=== PATIENT | female | born 1995 | race African-American/Black ===

== ENCOUNTER 2017-07-27 14:26 | Emergency (ER) | payer OTHER, SELFPAY ==
[2017-07-27 14:26] VITALS: BP 142/73; PULSE 77; RESP 16; TEMP 36.7; O2SAT 100; BMI 33.5
--- NOTE | 2017-07-27 14:42 | EKG12_ITS ---
Test Reason : CP Blood Pressure : / mmHG Vent. Rate : 069 BPM Atrial Rate : 069 BPM P-R Int : 154 ms QRS Dur : 072 ms QT Int : 386 ms P-R-T Axes : 039 020 010 degrees QTc Int : 413 ms Normal sinus rhythm with sinus arrhythmia Normal ECG Confirmed by PRISCILLA BIGGS ([id number]), acquisition editor JEFF PATRICK ([id number]) on 07/31/2017 1:46:21 PM Referred By: Confirmed By:PRISCILLA BIGGS
--- NOTE | 2017-07-27 14:42 | RAD_ITS ---
STUDY: X-RAY CHEST REASON FOR EXAM: Female, 22 years old. Left-sided chest pain. TECHNIQUE: Single AP portable view of the chest. COMPARISON: Comparison is made with prior study dated December 26, 2015. FINDINGS: EKG electrodes are seen. The lungs are clear and expanded. There is no demonstrated pleural abnormality. Normal size heart. Normal mediastinum and suzy. Normal visualized pulmonary arteries. Normal visualized aortic arch and descending thoracic aorta. Normal visualized thoracic spine. Normal visualized ribs, clavicles, and shoulders. There is no demonstrated abnormality of the visualized soft tissue structures of the upper abdomen. RAD/Chest 1 View (Portable) IMPRESSION: Normal x-ray examination of the chest. Electronically Signed: Michel Mujica MD at 15:09 EST Tel [phone], Service support ,
[2017-07-27 14:58] VITALS: O2SAT 100
[2017-07-27] MEDS: Aspirin 81 MG TAB.CHEW 324 MG PO (15:05)
[2017-07-27 15:13] LABS: Absolute Lymphocyte Count 2.23 X10^3/ul (0.83-4.51); Absolute Neutrophil Count 4.5 X10^3/uL (2.0-7.7); Basophil# 0.02 X10^3/uL; Basophil% 0.3 % (0-1); Eosinophil# 0.22 X10^3/uL; Eosinophils% 2.9 % (0-5); Hematocrit 38.3 % (37-47); Lymphocyte # 2.23 X10^3/ul (4.0); Lymphocyte % 29.3 % (19-41); Mean Corp Hgb Conc 31.3 g/gl (32-36); Mean Corpuscular Hgb 26.5 pg (27.0-32.0); Mean Corpuscular Volume 84.7 fL (81-99); Mean Platelet Vol. 10.4 fl (6.2-12.0); Monocyte# 0.59 X10^3/uL; Monocyte% 7.8 % (0-10); Neutrophil # 4.53 X10^3/uL (2.7-7.7); Neutrophil % 59.6 % (47-70); Platelet Count 249 K/mm3 (150-450); RBC Distribution Width CV 14.6 % (11.6-14.6); RBC Distribution Width SD 45.5 fl (35.1-43.9); Red Blood Count 4.52 M/mm3 (4.2-5.4); White Blood Count 7.6 K/mm3 (4.4-11.0)
[2017-07-27 15:14] LABS: POSITIVE COUNT NO; POSITIVE DIFFERENTIAL NO; POSITIVE MORPHOLOGY NO
--- NOTE | 2017-07-27 15:19 | ED.DCSUM_ITS ---
- ER Visit Summary Date of Service: 07/27/17 Chief Complaint: [] Left sided chest pain since about 8:00 this morning History of Present Illness: The patient is a 22 F [] chronic chest pain,, chronic syncope, falling spells, anemia, she reports that basically this morning she got up quickly which she has not supposed to do when she fell to the ground she had no LOC she believes she struck her head lightly she had no planes of headache change in vision or paresthesias she also complains of pain to her left chest but she does not believe she injured her chest. She has no history of [place] PE DVT she had a prior evaluation for the chest pain including cardiac echo and other tests that were unremarkable, she is not sure why she is anemic she takes iron, she was seeing physicians in the [facility] she lost contact with them when she moved to the [facility] a few months ago and does not reestablish with a physician He denies history of [place] PE DVT her review of systems are completely negative except as above Physical Examination: [] No distress her vital signs are normal head neck chest unremarkable the lungs sound clear the heart tones are normal the chest wall is nontender the head is nontender her neck is nontender her back upper lower extremities unremarkable abdomen completely soft nontender neurologically awake moving all 4 no distress lower extremities with no sinus clubbing or edema or signs of DVT clinically she sitting in the bed resting comfortably looks well Test Results: [] Emergency Department Course and Treatment: [] ekg is unremarkable sinus rhythm screening labs chest x-ray, are all generally unremarkable see those reports hemoglobin is 12 on reevaluation she is resting comfortable in the bed she is playing with her phone she is in no distress Long conversation with her regarding etiology for chest pain she has had this for at least 2 years this pain is identical to what she has had in the past there is nothing to suggest [place] PE DVT she has no history of the above risk factors, I could not access the prior cardiac echo and other tests that she had as apparently were done somewhere in [place] she is really not sure where but she assures me they were normal. At this time we will discharge her on Naprosyn she is referred to [place] on-call primary care and she will return for change in symptoms as she understands she will require more definitive outpatient management and she will agrees to return for change in symptoms Treatment Plan: [] Disposition: [] Home stable Impression: [] Intermittent chest pain for years etiology unclear This note was generated with [employer] dictation software. It may contain incorrect words, spelling, and punctuation that were not noted in review of the chart prior to signing ED Disposition - Plan for ED Patient: Chief Complaint: Chest Pain Referrals: Care Physician,No Primary [Primary Care Provider] -
[2017-07-27 15:30] LABS: Anion Gap 6 (5-15); BUN 13 mg/dL (7-18); BUN/Creat Ratio 14.7 RATIO (10-20); Calcium,Total 8.4 mg/dL (8.5-10.1); Chloride 110 mmol/L (98-107); Creatinine, Serum 0.88 mg/dL (0.55-1.02); EST Glomerular Filtration Rate 84 mL/min (>60); Est Glom Filt Rate - Afr Amer 102 mL/min (>60); Estimated Creatinine Clearance 111.13 ml/min; Glucose 91 mg/dL (74-106); Potassium 3.8 mmol/L (3.5-5.1); Sodium Level 142 mmol/L (136-145)
--- NOTE | 2017-07-27 15:37 | ED.DEP ---
ED Disposition - Plan for ED Patient: Chief Complaint: Chest Pain Instructions: ED Chest Pain Atypical Unkn Cause Prescriptions: Naproxen [Naprosyn] 500 mg PO BID PRN #20 tab Referrals: Care Physician,No Primary [Primary Care Provider] - Trino Edmonds MD [STAFF PHYSICIAN] -
[2017-07-27 15:45] VITALS: BP 124/85; PULSE 74; RESP 14; O2SAT 100
--- NOTE | 2017-07-27 15:45 | ED.RN ---
PT GIVEN AND WRITTEN AND VERBAL DISCHARGE INSTRUCTIONS AND HOME GOING PRESCRIPTIONS. PT VERBALIZES UNDERSTANDING. PT DENIES ANY FURTHER QUESTIONS. IV D/C AND COVERED WITH 2X2 GAUZE DRESSING. MINIMAL BLEEDING NOTED. PT DRESSES SELF AND AMBULATES HOME WITH FRIEND.
== END 2017-07-27 15:49 | disposition home or self-care (01) ==
PROVIDERS: Emergency Provider Emergency Medicine
DX: R07.9 Chest pain, unspecified (principal)
CPT/HCPCS: 71045; 80048; 84484; 85025; 93005; 99285; A4216

== ENCOUNTER 2017-07-30 20:10 | Emergency (ER) | payer OTHER, SELFPAY ==
[2017-07-30 20:11] VITALS: BP 147/87; PULSE 86; RESP 14; TEMP 37.1; O2SAT 97; BMI 34.1
--- NOTE | 2017-07-30 20:30 | RAD_ITS ---
STUDY: X-RAY - RIGHT KNEE REASON FOR EXAM: Female, 22 years old. Pain TECHNIQUE: Four view(s) of the knee were obtained. COMPARISON: May 04, 2015 FINDINGS: The distal femur is unremarkable. The proximal tibia is unremarkable. Normal medial femorotibial compartment. Normal lateral femorotibial compartment. Normal patellofemoral articulation. There is no fullness above the patella. The soft tissue structures are unremarkable. RAD/Knee 4 or More Views IMPRESSION: No significant abnormalities are seen radiographically in the right knee. Electronically Signed: Tayla Hughes MD at 21:02 EDT Tel Direct: [phone], Service support ,
--- NOTE | 2017-07-30 21:17 | ED.VISSUMM ---
- ER Visit Summary Date of Service: 07/30/17 Chief Complaint: Sore throat and right knee pain History of Present Illness: The patient is a 22 F who because of right knee pain. She states her knee locks up and gives way. There is no history of trauma. She has never injured the knee in the past. She denies paresthesia, anesthesia moderates. She denies swelling. She does report nasal congestion sore throat and cough. She is a smoker. She denies earache, headache, photophobia sips of her neck. She denies rash. She denies any GI or symptoms. Physical Examination: Signs are marked for an elevated blood pressure 147/87. She is obese with a BMI of 34.1. HEENT exam is remarkable for rhinorrhea. Neck is supple. Heart is regular without murmur, gallop or rub. S1 and S2 are normal. Lungs are clear to auscultation with good movement of air bilaterally. There is no swelling of the right knee. The right knee is not discolored, warm or any different appearance compared to left. The patella is not ballotable. There is no effusion. She is able to extend 180? and flex to 90?. There is no laxity with varus valgus stress testing. Nicholas's test was negative. Modified Jacqueline's test is negative. DP and PT pulses are palpable. Test Results: 4 view x-ray of the knee was obtained and is negative per my interpretation. Emergency Department Course and Treatment: The knee was obtained to see if there is any evidence of prior injury. Since patient's Centor score is 0 rapid strep was not obtained Treatment Plan: NSAID, symptomatic treatment for sore throat. She was informed she has a viral infection. Disposition: Discharged home with appropriate home-going instructions and symptomatic treatment Impression: 1. Right knee pain of unknown etiology 2. Viral pharyngitis This note was generated with [employer] dictation software. It may contain incorrect words, spelling, and punctuation that were not noted in review of the chart prior to signing ED Disposition - Plan for ED Patient: Disposition: Home or Assisted Living Chief Complaint: Lower Extremity Injury Instructions: ED Knee Pain UKO, ED Pharyngitis Viral Referrals: Care Physician,No Primary [Primary Care Provider] - Additional Instructions: If there is no improvement in 1-2 weeks follow-up with the primary care physician you were assigned to by your insurance carrier, [facility]
[2017-07-30 21:28] VITALS: RESP 16
== END 2017-07-30 21:28 | disposition home or self-care (01) ==
PROVIDERS: Emergency Provider Emergency Medicine
DX: M25.561 Pain in right knee (principal); J02.9 Acute pharyngitis, unspecified; R05 Cough; F17.200 Nicotine dependence, unspecified, uncomplicated
CPT/HCPCS: 73564; 99282

== ENCOUNTER 2017-08-04 19:23 | Emergency (ER) | payer OTHER, MEDICAID, SELFPAY ==
[2017-08-04 19:24] VITALS: BP 162/96; PULSE 85; RESP 16; TEMP 36.8; O2SAT 100; BMI 33.4
--- NOTE | 2017-08-04 19:51 | EKG12_ITS ---
Test Reason : CP Blood Pressure : / mmHG Vent. Rate : 077 BPM Atrial Rate : 077 BPM P-R Int : 150 ms QRS Dur : 086 ms QT Int : 388 ms P-R-T Axes : 044 042 032 degrees QTc Int : 439 ms Normal sinus rhythm Normal ECG Confirmed by PRISCILLA BIGGS ([id number]), television news video editor JEFF PATRICK ([id number]) on 08/07/2017 1:17:36 PM Referred By: SHANTANU Confirmed By:PRISCILLA BIGGS
[2017-08-04 20:27] VITALS: BP 137/87; PULSE 64; RESP 16; O2SAT 100
[2017-08-04 20:45] LABS: Absolute Neutrophil Count 5.5 X10^3/uL (2.0-7.7); Basophil# 0.04 X10^3/uL; Basophil% 0.4 % (0-1); Eosinophil# 0.24 X10^3/uL; Eosinophils% 2.6 % (0-5); Hematocrit 38.3 % (37-47); Hemoglobin 12.3 g/dl (12.0-15.0); Mean Corp Hgb Conc 32.1 g/gl (32-36); Mean Corpuscular Hgb 26.9 pg (27.0-32.0); Mean Corpuscular Volume 83.6 fL (81-99); Mean Platelet Vol. 10.6 fl (6.2-12.0); Monocyte# 0.79 X10^3/uL; Monocyte% 8.5 % (0-10); Neutrophil # 5.51 X10^3/uL (2.7-7.7); Neutrophil % 59.3 % (47-70); Platelet Count 326 K/mm3 (150-450); RBC Distribution Width CV 14.7 % (11.6-14.6); RBC Distribution Width SD 44.2 fl (35.1-43.9); Red Blood Count 4.58 M/mm3 (4.2-5.4); White Blood Count 9.3 K/mm3 (4.4-11.0)
--- NOTE | 2017-08-04 20:45 | RAD_ITS ---
STUDY: X-RAY CHEST REASON FOR EXAM: Female, 22 years old. Chest pain TECHNIQUE: Single AP portable view of the chest. COMPARISON: July 27, 2017 chest x-ray FINDINGS: The lungs are clear and expanded. There is no demonstrated pleural abnormality. Normal size heart. Normal mediastinum and suzy. Normal visualized pulmonary arteries. Normal visualized aortic arch and descending thoracic aorta. Normal visualized thoracic spine. Normal visualized ribs, clavicles, and shoulders. There is no demonstrated abnormality of the visualized soft tissue structures of the upper abdomen. RAD/Chest 1 View (Portable) IMPRESSION: Normal x-ray examination of the chest. Electronically Signed: Shyla Medrano MD at 21:34 EDT Tel , Service support ,
[2017-08-04 20:47] LABS: POSITIVE COUNT NO; POSITIVE DIFFERENTIAL NO; POSITIVE MORPHOLOGY NO
[2017-08-04 21:06] LABS: Anion Gap 7 (5-15); BUN 8 mg/dL (7-18); BUN/Creat Ratio 9.1 RATIO (10-20); Calcium,Total 8.5 mg/dL (8.5-10.1); Chloride 106 mmol/L (98-107); Creatinine, Serum 0.88 mg/dL (0.55-1.02); EST Glomerular Filtration Rate 84 mL/min (>60); Est Glom Filt Rate - Afr Amer 102 mL/min (>60); Estimated Creatinine Clearance 111.13 ml/min; Glucose 81 mg/dL (74-106); Potassium 3.6 mmol/L (3.5-5.1); Sodium Level 140 mmol/L (136-145)
--- NOTE | 2017-08-04 21:33 | ED.DCSUM_ITS ---
- ER Visit Summary Date of Service: 08/04/17 Chief Complaint: Chest pain History of Present Illness: The patient is a 22 F presenting with left-sided chest pain. She has a history of anxiety and has been feeling anxious today. She states she has had suicidal thoughts, but is not currently suicidal and has no plan. She also complains of vaginal bleeding since February 2017. She states she does not have normal periods. She has vaginal bleeding on a daily basis. She has an appointment with [facility] on Monday. Physical Examination: Vitals are stable. Patient is afebrile. Alert no acute distress. HEENT exam is unremarkable. Neck is supple. Lungs are clear and equal bilaterally. Left chest wall tenderness to palpation , no crepitus Heart is regular rate and rhythm. Abdomen is soft nontender nondistended. Pelvic: Minimal amount of blood in the vaginal vault. No significant active bleeding. No cervical motion tenderness. Extremities are unremarkable. Skin is warm and dry. No focal neurologic deficit. Anxious Remainder of exam is unremarkable. Emergency Department Course and Treatment: EKG is sinus rhythm rate 77 with no acute ischemic changes. CBC, chemistries are unremarkable. Troponin is negative. Chest x-ray shows no acute process. Patient was given Toradol IM with improvement. She was given Ativan p.o. Discussed again with the patient regarding her depression. She does not feel suicidal. She has children at home and wants to live. She will return to ED if she has any suicidal thoughts or plan. Advised to follow-up with counseling center, [facility], PCP. Disposition: Discharge home Impression: Chest wall pain, vaginal bleeding, anxiety/depression This note was generated with [employer] dictation software. It may contain incorrect words, spelling, and punctuation that were not noted in review of the chart prior to signing ED Disposition - Plan for ED Patient: Chief Complaint: Chest Pain Referrals: Care Physician,No Primary [Primary Care Provider] -
[2017-08-04] MEDS: Ketorolac 60 MG/2 ML Vial IM (22:38)
[2017-08-04] MEDS: LORazepam 1 MG Tablet PO (22:38)
[2017-08-04 23:16] LABS: Pregnancy, Serum, hCG Quali. NEGATIVE Negative (0-9 Nonpreg)
[2017-08-04 23:29] LABS: Amphetamine Urine VISTA NEGATIVE (<1000 ng/mL); Barbiturate Urine VISTA NEGATIVE (< 200 ng/mL); Benzodiazepine Urine VISTA NEGATIVE (< 200 ng/mL); Cocaine Urine VISTA NEGATIVE (< 300 ng/mL); Ecstacy Urine VISTA NEGATIVE (< 500 ng/mL); Methadone Urine VISTA NEGATIVE (< 300 ng/mL); PCP Urine VISTA NEGATIVE (< 25 ng/mL); THC Urine VISTA NEGATIVE (< 50 ng/mL); Vista UDS pH Range 6
--- NOTE | 2017-08-04 23:42 | ED.DEP ---
ED Disposition - Plan for ED Patient: Chief Complaint: Chest Pain Instructions: ED Strain Chest Wall, Depression Affects Your Mind and Body Referrals: Care Physician,No Primary [Primary Care Provider] - Counseling,Center [GROUP OF PHYSICIANS] -
[2017-08-04 23:52] VITALS: BP 128/62; PULSE 72; RESP 16; O2SAT 100
== END 2017-08-04 23:56 | disposition home or self-care (01) ==
PROVIDERS: Emergency Provider Emergency Medicine
DX: R07.89 Other chest pain (principal); N93.9 Abnormal uterine and vaginal bleeding, unspecified; F41.9 Anxiety disorder, unspecified; F32.9 Major depressive disorder, single episode, unspecified
CPT/HCPCS: 71045; 80048; 80307; 80320; 84484; 84703; 85025; 93005; 96372; 99285; A4216; G0480

== ENCOUNTER 2017-08-11 22:10 | Emergency (ER) | payer OTHER, MEDICAID, SELFPAY ==
[2017-08-11 22:11] VITALS: BP 141/75; PULSE 72; RESP 14; TEMP 36.7; O2SAT 98; BMI 31.1
--- NOTE | 2017-08-11 22:58 | ED.VISSUMM ---
- ER Visit Summary Date of Service: 08/11/17 Chief Complaint: Head injury History of Present Illness: The patient is a 22 F presents to the emergency department with head injury. The patient states that she was lying on bed. The bed is on the floor. She rolled over and try to get. She struck her head on the table. She did not lose consciousness. Since then, she has had mild frontal headache and nausea. She takes no anticoagulants. The patient is otherwise healthy. She denies any vomiting. She denies any visual change. Physical Examination: Vital signs reviewed General: Well-nourished, well-developed Head: Normocephalic, atraumatic Eyes: Pupils equal and reactive, extraocular muscles intact Neck, supple, no lymphadenopathy Heart: Regular rate and rhythm Respiratory: No distress, clear bilaterally Abdomen: Soft, nontender, nondistended, no peritoneal signs Back: Nontender Extremities: Nontender, no edema, no cords Skin: Normal color no rash Neuro: Alert and oriented, no focal or lateralizing deficits Test Results: [] Emergency Department Course and Treatment: Patient has no appreciable external trauma. She is a GCS of 15. She has a benign neurologic examination. She does not take anticoagulants. There was no loss of consciousness. At this time, I do not feel head CT is necessary. I do feel she may have a mild concussion. The patient was treated with anti-inflammatories and antiemetics. She was counseled on concerning symptoms and reasons to return. The patient will be discharged home. Treatment Plan: [] Disposition: Discharge Impression: 1. Concussion without loss of consciousness This note was generated with [employer] dictation software. It may contain incorrect words, spelling, and punctuation that were not noted in review of the chart prior to signing ED Disposition - Plan for ED Patient: Chief Complaint: Head Injury Instructions: ED Concussion Prescriptions: Ondansetron [Zofran Odt] 4 mg PO Q8H PRN PRN #10 tab PRN Reason: Nausea Naproxen [Naprosyn] 500 mg PO BID #20 tab Referrals: Care Physician,No Primary [Primary Care Provider] -
--- NOTE | 2017-08-11 23:03 | ED.DCSUM_ITS ---
- ER Visit Summary Date of Service: 08/11/17 Chief Complaint: Head injury History of Present Illness: The patient is a 22 F presents to the emergency department with head injury. The patient states that she was lying on bed. The bed is on the floor. She rolled over and try to get. She struck her head on the table. She did not lose consciousness. Since then, she has had mild frontal headache and nausea. She takes no anticoagulants. The patient is otherwise healthy. She denies any vomiting. She denies any visual change. Physical Examination: Vital signs reviewed General: Well-nourished, well-developed Head: Normocephalic, atraumatic Eyes: Pupils equal and reactive, extraocular muscles intact Neck, supple, no lymphadenopathy Heart: Regular rate and rhythm Respiratory: No distress, clear bilaterally Abdomen: Soft, nontender, nondistended, no peritoneal signs Back: Nontender Extremities: Nontender, no edema, no cords Skin: Normal color no rash Neuro: Alert and oriented, no focal or lateralizing deficits Test Results: [] Emergency Department Course and Treatment: Patient has no appreciable external trauma. She is a GCS of 15. She has a benign neurologic examination. She does not take anticoagulants. There was no loss of consciousness. At this time , I do not feel head CT is necessary. I do feel she may have a mild concussion. The patient was treated with anti-inflammatories and antiemetics. She was counseled on concerning symptoms and reasons to return. The patient will be discharged home. Treatment Plan: [] Disposition: Discharge Impression: 1. Concussion without loss of consciousness This note was generated with [employer] dictation software. It may contain incorrect words, spelling, and punctuation that were not noted in review of the chart prior to signing ED Disposition - Plan for ED Patient: Chief Complaint: Head Injury Instructions: ED Concussion Prescriptions: Ondansetron [Zofran Odt] 4 mg PO Q8H PRN PRN #10 tab PRN Reason: Nausea Naproxen [Naprosyn] 500 mg PO BID #20 tab Referrals: Care Physician,No Primary [Primary Care Provider] -
[2017-08-11 23:11] VITALS: PULSE 53; RESP 16; O2SAT 97
--- NOTE | 2017-08-11 23:13 | NURSING ---
medications not given prior to d/c
== END 2017-08-11 23:13 | disposition home or self-care (01) ==
PROVIDERS: Emergency Provider Emergency Medicine
DX: S06.0X0A Concussion without loss of consciousness, initial encounter (principal); W22.03XA Walked into furniture, initial encounter; Y93.9 Activity, unspecified; Y92.009 Unspecified place in unspecified non-institutional (private) residence as the place of occurrence of the external cause; Y99.9 Unspecified external cause status
CPT/HCPCS: 99282

== ENCOUNTER 2017-08-12 13:58 | Emergency (ER) | payer OTHER, MEDICAID, SELFPAY ==
[2017-08-12 13:59] VITALS: BP 144/80; PULSE 67; RESP 16; TEMP 36.9; O2SAT 98; BMI 32.3
--- NOTE | 2017-08-12 14:17 | CT_ITS ---
STUDY: CT BRAIN WITHOUT CONTRAST REASON FOR EXAM: Female, 22 years old. Fall. RADIATION DOSAGE (If Supplied By Facility): CTDIvol = ( 44.99 ) mGy, DLP = ( 745.49 ) mGycm TECHNIQUE: Transaxial CT imaging of the brain was performed without administration of intravenous contrast material. Individualized dose optimization techniques were used for this CT. COMPARISON: None. FINDINGS: Normal soft tissue structures. Normal calvarium. Normal size ventricles and extra-axial spaces for the patient's age. Normal white matter tracts of the cerebral hemispheres. Normal basal ganglia and thalami. Normal brainstem. Normal cerebellum. There is no intracranial hemorrhage. There are no findings of an acute ischemic infarction. Normal visualized paranasal sinuses. CT/Brain/Head without Contrast IMPRESSION: Normal unenhanced CT scan of the brain. Electronically Signed: Robert Miguel MD at 15:40 EDT , Service support ,
--- NOTE | 2017-08-12 14:18 | ED.VISSUMM ---
- ER Visit Summary Date of Service: 08/12/17 Chief Complaint: Headache and left-sided weakness History of Present Illness: The patient is a 22 F who presents with worsening headache and left-sided weakness today. Patient was seen here yesterday after a fall. Patient was diagnosed with a concussion yesterday. Patient was told that if anything became worse to return to the emergency department. Patient states that today she has some numbness and weakness to her left side. Patient denies any chest pain. Patient does admit to a mild headache. Patient admits to some photophobia. Patient admits to some nausea but denies any vomiting. Patient states he feels lightheaded and felt like she might pass out today. Physical Examination: Vital signs are stable. Patient is afebrile. Patient is in no acute distress. Cranial nerves II through XII are intact. Strength is 4/5 in the left upper and lower extremities. Strength is 5/5 in the right upper and lower extremities. Effort was questionable. There are no sensory deficits noted. Heart was regular rate and rhythm. Lungs are clear and equal bilaterally. There is good respiratory effort noted. Oral mucosa is pink and moist. Neck is supple. There is no lymphadenopathy appreciated. The remaining physical exam is within normal limits. Test Results: CT scan of the brain was obtained did not show any acute intracranial abnormality. CBC and basic metabolic profile were obtained and were within normal limits. Emergency Department Course and Treatment: Patient was given IV fluids, Compazine, and Benadryl here. Patient felt better on reevaluation. Patient's strength improved to 5/5 on the left. Patient was instructed to drink plenty of fluids. Patient was instructed to get plenty of rest. Patient was instructed to follow-up with her primary care physician in 7-10 days. Patient understood and was agreeable with the plan. All questions were answered. Disposition: Discharge home Impression: Concussion This note was generated with [employer] dictation software. It may contain incorrect words, spelling, and punctuation that were not noted in review of the chart prior to signing ED Disposition - Plan for ED Patient: Disposition: Home or Assisted Living Chief Complaint: Dizziness Diagnosis: Concussion Instructions: ED Concussion Referrals: Care Physician,No Primary [Primary Care Provider] -
--- NOTE | 2017-08-12 14:21 | ED.DCSUM_ITS ---
- ER Visit Summary Date of Service: 08/12/17 Chief Complaint: Headache and left-sided weakness History of Present Illness: The patient is a 22 F who presents with worsening headache and left-sided weakness today. Patient was seen here yesterday after a fall. Patient was diagnosed with a concussion yesterday. Patient was told that if anything became worse to return to the emergency department. Patient states that today she has some numbness and weakness to her left side. Patient denies any chest pain. Patient does admit to a mild headache. Patient admits to some photophobia. Patient admits to some nausea but denies any vomiting. Patient states he feels lightheaded and felt like she might pass out today. Physical Examination: Vital signs are stable. Patient is afebrile. Patient is in no acute distress. Cranial nerves II through XII are intact. Strength is 4/ 5 in the left upper and lower extremities. Strength is 5/5 in the right upper and lower extremities. Effort was questionable. There are no sensory deficits noted. Heart was regular rate and rhythm. Lungs are clear and equal bilaterally. There is good respiratory effort noted. Oral mucosa is pink and moist. Neck is supple. There is no lymphadenopathy appreciated. The remaining physical exam is within normal limits. Test Results: CT scan of the brain was obtained did not show any acute intracranial abnormality. CBC and basic metabolic profile were obtained and were within normal limits. Emergency Department Course and Treatment: Patient was given IV fluids, Compazine, and Benadryl here. Patient felt better on reevaluation. Patient's strength improved to 5/5 on the left. Patient was instructed to drink plenty of fluids. Patient was instructed to get plenty of rest. Patient was instructed to follow-up with her primary care physician in 7-10 days. Patient understood and was agreeable with the plan. All questions were answered. Disposition: Discharge home Impression: Concussion This note was generated with [employer] dictation software. It may contain incorrect words, spelling, and punctuation that were not noted in review of the chart prior to signing ED Disposition - Plan for ED Patient: Disposition: Home or Assisted Living Chief Complaint: Dizziness Diagnosis: Concussion Instructions: ED Concussion Referrals: Care Physician,No Primary [Primary Care Provider] -
[2017-08-12] MEDS: DiphenhydrAMINE 50 MG/ML Syringe 25 MG IV (14:39)
[2017-08-12] MEDS: 0.9% Normal Saline 1,000 ML 1000 ML IV (14:40)
[2017-08-12] MEDS: proCHLORPERazine 10 MG/2 ML Vial IV (14:40)
[2017-08-12 14:41] VITALS: BP 118/78; PULSE 87; RESP 20; O2SAT 99
[2017-08-12 15:06] LABS: Absolute Lymphocyte Count 2.19 X10^3/ul (0.83-4.51); Absolute Neutrophil Count 4.5 X10^3/uL (2.0-7.7); Basophil# 0.02 X10^3/uL; Basophil% 0.3 % (0-1); Eosinophil# 0.09 X10^3/uL; Eosinophils% 1.3 % (0-5); Hematocrit 40.6 % (37-47); Hemoglobin 12.7 g/dl (12.0-15.0); Lymphocyte # 2.19 X10^3/ul (4.0); Lymphocyte % 30.7 % (19-41); Mean Corp Hgb Conc 31.3 g/gl (32-36); Mean Corpuscular Hgb 26.3 pg (27.0-32.0); Mean Corpuscular Volume 84.1 fL (81-99); Mean Platelet Vol. 10.5 fl (6.2-12.0); Monocyte# 0.37 X10^3/uL; Monocyte% 5.2 % (0-10); Neutrophil # 4.46 X10^3/uL (2.7-7.7); Neutrophil % 62.5 % (47-70); Platelet Count 344 K/mm3 (150-450); RBC Distribution Width CV 14.4 % (11.6-14.6); RBC Distribution Width SD 44.6 fl (35.1-43.9); Red Blood Count 4.83 M/mm3 (4.2-5.4); White Blood Count 7.1 K/mm3 (4.4-11.0)
[2017-08-12 15:15] LABS: POSITIVE COUNT NO; POSITIVE DIFFERENTIAL NO; POSITIVE MORPHOLOGY NO
[2017-08-12 15:22] LABS: Anion Gap 7 (5-15); BUN 12 mg/dL (7-18); BUN/Creat Ratio 11.4 RATIO (10-20); Calcium,Total 9.2 mg/dL (8.5-10.1); Chloride 106 mmol/L (98-107); Creatinine, Serum 1.05 mg/dL (0.55-1.02); EST Glomerular Filtration Rate 69 mL/min (>60); Est Glom Filt Rate - Afr Amer 83 mL/min (>60); Estimated Creatinine Clearance 99.19 ml/min; Glucose 76 mg/dL (74-106); Potassium 4.2 mmol/L (3.5-5.1); Sodium Level 139 mmol/L (136-145)
[2017-08-12 15:50] VITALS: BP 126/78; PULSE 84; O2SAT 99
== END 2017-08-12 15:52 | disposition home or self-care (01) ==
PROVIDERS: Emergency Provider Emergency Medicine
DX: S06.0X9D Concussion with loss of consciousness of unspecified duration, subsequent encounter (principal); W19.XXXD Unspecified fall, subsequent encounter
CPT/HCPCS: 70450; 80048; 85025; 96361; 96374; 96375; 99285; J7030; A4216

== ENCOUNTER 2019-01-05 17:43 | Emergency (ER) | payer OTHER, MEDICAID, SELFPAY ==
[2019-01-05 17:45] VITALS: BP 123/69; PULSE 101; RESP 17; TEMP 37.1; O2SAT 97; BMI 36.5
[2019-01-05] MEDS: Naproxen 500 MG Tablet PO (18:39)
--- NOTE | 2019-01-05 18:50 | RAD_ITS ---
STUDY: X-RAY - PELVIS AND RIGHT HIP REASON FOR EXAM: Female, 23 years old. Right hip pain TECHNIQUE: 2 views of the pelvis and hip. COMPARISON: None. FINDINGS: There is a non-specific bowel gas pattern. Normal visualized soft tissue structures. Normal bilateral iliac wings, sacroiliac joints and visualized sacrum. Normal bilateral superior and inferior pubic rami. Normal pubic symphysis. Normal bilateral ischial tuberosities. Normal visualized femoral head. Normal acetabulum. Normal hip joint. RAD/Hip Min 2 Views (Portable) IMPRESSION: Normal x-ray examination of the pelvis and hip. Electronically Signed: [place], at 19:14 EDT Tel , Service support ,
--- NOTE | 2019-01-05 19:05 | ED.VISSUMM ---
- ER Visit Summary Date of Service: 01/05/19 Chief Complaint: Right hip pain History of Present Illness: The patient is a 23 F with no primary care physician. She reports she has right hip pain that began 3 days ago. No known trauma. She has not fallen, benign car accident, or had a change in activity. She reports it is a sharp pain is out of 10 at worst at 10 currently. Is worsened by walking. She relieved by leaning to the left. She has not taken anything for pain. She denies any paresthesias distally. No back pain. Physical Examination: Vitals: Stable. Afebrile. General: Well-nourished and well-developed. Head: Normocephalic atraumatic. Neck: Supple, no lymphadenopathy. No JVD. Nontender. Cardiovascular: Regular rate and rhythm. No murmurs. Respiratory: No respiratory distress. Clear to auscultation bilaterally. Abdominal: Soft, nontender, nondistended, normal bowel sounds. No guarding, rebound, or peritoneal signs. Back: Nontender. Extremities: Moderate tenderness palpation over the right greater trochanter. There is no rash or erythema. There is no warmth to suggest a septic joint. She has full range of motion without difficulty. She is neurovascular intact distally. No edema. Skin: Normal color, no rash. Neurologic: Alert and oriented ?3. Cranial nerves II through XII are intact. Normal strength and sensation. Psych: Normal affect. Test Results: Clinical Impression(s) from Imaging Studies Hip X-Ray 01/05/19 18:50 IMPRESSION: Normal x-ray examination of the pelvis and hip. Electronically Signed: Annachris Adilson, at 19:14 EDT Tel , Service support , Emergency Department Course and Treatment: Patient was treated with naproxen. She is walking about the emergency department on a difficulty. Treatment Plan: Patient will be discharged naproxen. Instructed to follow-up with Dr. Vinny Majano in 1 week if not improving. Return to the emergency department for any worsening symptoms. Disposition: To home in improved and stable condition. Impression: 1. Right hip pain, acute. This note was generated with Sparkcloudation software. It may contain incorrect words, spelling, and punctuation that were not noted in review of the chart prior to signing ED Disposition - Plan for ED Patient: Disposition: Home or Assisted Living Instructions: Hip Strain Prescriptions: Naproxen [Naprosyn] 500 mg PO BID #14 tab Prescription Printed Referrals: Vinny Majano MD [STAFF PHYSICIAN] - 1 Week if not improving
[2019-01-05 19:13] VITALS: BP 126/68; PULSE 76; RESP 18; O2SAT 99
== END 2019-01-05 19:14 | disposition home or self-care (01) ==
LOC: ED 19:05
PROVIDERS: Emergency Provider Emergency Medicine
DX: M25.551 Pain in right hip (principal)
CPT/HCPCS: 73502; 99283

== ENCOUNTER 2023-11-03 10:11 | Emergency (ER) | payer MEDICAID, SELFPAY ==
[2023-11-03 10:11] VITALS: BP 135/90; PULSE 96; RESP 14; TEMP 36.3; O2SAT 97; BMI 37.6
--- NOTE | 2023-11-03 11:04 | EDS_ITS ---
HPI HPI - GI History of Present Illness Chief Complaint: Abd Pain Informant: patient Abdominal Pain/Flank Pain Onset: Yesterday Context: Gradual Onset Timing: Continuous Quality: Sharp Location: RUQ Worsened by: Food Relieved by: Nothing Nausea/Vomiting/Emesis GI Symptom: Negative for Nausea or Vomiting Diarrhea/Melena/Hematochezia GI Symptom: Negative for Diarrhea, Melena or Hematochezia Associated Symptoms Associated Symptoms: Negative for Dysuria, Frequency, Hematuria or Urgency LMP: Last month Narrative Narrative: Patient presents with abdominal pain that began last evening. Patient states it is over her gallbladder area. Patient states she has had problems with her gallbladder in the past. Patient states she ate [employer] last night and her pain began after that. Patient states it has been constant since that time. Patient describes it as sharp. Patient states it is mainly over the right upper quadrant. Patient denies any nausea or vomiting. Patient denies any fevers or chills. Patient denies any diarrhea, melena, or hematochezia. Patient denies any urinary complaints. Patient states her last menstrual period was last month. [facility] Home Medications ?Medication ?Instructions ?Recorded ?Last Taken ?Type naproxen 500 mg tablet 500 mg PO BID #20 tabs 08/11/17 Unknown Rx naproxen 500 mg tablet 500 mg PO BID #14 tabs 01/05/19 Unknown Rx hydrocodone-acetaminophen 5-325mg 1 tab PO Q6H PRN PRN Pain 3 days 11/03/23 Unknown Rx 5mg-325mg #10 TABLETS ondansetron 4 mg disintegrating 4 mg PO Q8H PRN PRN Nausea #10 tabs 11/03/23 Unknown Rx tablet Allergy/AdvReac Type Severity Reaction Status Date / Time No Known Allergies Allergy Verified 11/03/23 10:17 Social History Smoking Status: Never smoker ROS ROS ED Constitutional Constitutional ED: Denies chills or fever(s) Eyes Eyes: Denies blurry vision or change in vision ENT ENT ED: Denies rhinorrhea or sore throat Cardiovascular Cardiovascular: Denies chest pain or palpitations Respiratory/Chest Respiratory/Chest: Reports dyspnea; Denies cough Gastrointestinal Gastrointestinal: Reports abdominal pain; Denies diarrhea, melena, nausea or vomiting Genitourinary Genitourinary ED: Denies dysuria or hematuria Musculoskeletal Musculoskeletal: Denies back pain or neck pain Integumentary Denies abscess or rash Neurologic Neurologic: Denies headache(s) or weakness Allergic/Immunologic Allergic/Immunologic ED: Denies mouth swelling or urticaria EXAM Physical Exam Const Vital Signs: 11/03/23 10:11 11/03/23 12:11 11/03/23 14:00 Temperature 97.3 F L Temperature Source Temporal Pulse Rate 96 55 L 69 Respiratory Rate 14 17 14 Blood Pressure 135/90 H 124/72 H 109/75 Blood Pressure Mean 105 89 86 Pulse Ox 97 98 98 Oxygen Delivery Method Room Air Room Air Positive well nourished, well developed and obese General Appearance ED: well developed and NAD Nutritional Appearance: obese HEENT Reports moist mucous membranes Neck supple and no JVD Resp normal respiratory effort and clear to auscultation bilaterally Cardio regular rate and regular rhythm GI non-distended Palpation: soft and tender epigastric, RUQ and Porter's sign; Negative for guarding or rebound tenderness present Extremity General Extremety ED: Negative for edema or tenderness General Extremity: Negative for edema Neuro CN's II-XII intact bilaterally, moves all extremities and no sensory deficits noted Sensorium / Orientation: alert Motor Exam: strength 5/5 throughout Psych mental status grossly normal MDM MDM MDM Narrative Medical decision making narrative: Differential diagnosis includes cholecystitis, cholelithiasis, pancreatitis, peptic ulcer disease, duodenal ulcer, pyelonephritis, and urinary tract infection. CBC will be obtained to assess for leukocytosis and anemia. Comprehensive metabolic profile will be obtained to assess for electrolyte abnormality and renal function. Lipase will be obtained to assess for pancreatitis. Right upper quadrant ultrasound will be obtained to assess for cholecystitis. Urinalysis will be obtained to assess for urinary tract infection and hematuria. Lab Data Attestation: I reviewed the patient's lab results. Lab results narrative: CBC was reviewed and was within normal limits. Comprehensive metabolic profile was reviewed and was within normal limits. Lipase was reviewed and was normal. Serum hCG was reviewed and was negative. Urinalysis was reviewed. There is no evidence of urinary tract infection or hematuria. Labs: Laboratory Results - last 24 hr 11/03/23 11/03/23 10:20 14:15 WBC 7.7 RBC 4.90 Hgb 12.2 Hct 39.4 MCV 80.4 L MCH 24.9 L MCHC 31.0 L RDW Std Deviation 42.0 RDW Coeff of Marvin 14.6 Plt Count 317 MPV 11.4 Immature Gran % (Auto) 0.300 Neut % (Auto) 53.1 Lymph % (Auto) 30.9 [place] % (Auto) 10.6 H Eos % (Auto) 4.2 Baso % (Auto) 0.9 Absolute Neuts (auto) 4.1 Absolute Lymphs (auto) 2.37 Nucleated RBC % 0 Sodium 141 Potassium 4.2 Chloride 107 Carbon Dioxide 24.0 Anion Gap 10 BUN 11 Creatinine 1.01 Estim Creat Clear Calc 118.64 Est GFR (MDRD) Af Amer 83 Est GFR (MDRD) Non-Af 69 BUN/Creatinine Ratio 10.9 Glucose 101 Calcium 9.2 Total Bilirubin 0.30 AST 22 ALT 25 Alkaline Phosphatase 78 Total Protein 7.9 Albumin 3.7 Globulin 4.2 Albumin/Globulin Ratio 0.9 Lipase 46 Serum , Qual NEGATIVE Urine Color Straw Urine Clarity Clear Urine pH 6.0 Ur Specific Mentcle 1.020 Urine Protein 15 H Urine Glucose (UA) Normal Urine Ketones Negative Urine Occult Blood 10 H Urine Nitrite Positive H Urine Bilirubin Negative Urine Urobilinogen Normal Ur Leukocyte Esterase 25 H Urine RBC 0 SEEN Urine WBC 0-5 SEEN Ur Squamous Epith Cells 5-10 SEEN Urine Bacteria 4+ Urine Mucus 1+ Radiography Diagnostic Testing: Clinical Impression(s) from Imaging Studies Gallbladder Ultrasound 11/03/23 11:11 IMPRESSION: Multiple gallstones. Electronically Signed: Michel Mujica MD at 12:36 EDT , Right upper quadrant ultrasound was obtained. There are multiple gallstones. There is no evidence of cholecystitis. There is no ductal dilatation. There is no wall thickening noted. There is no pericholecystic fluid. This was interpreted by the radiologist was also independently reviewed by myself. Treatment and Re-Evaluation :: Patient was given IV fluids, morphine, and Zofran. Patient was feeling better on reevaluation. Patient was advised of her findings. Patient was instructed to eat a bland diet. Patient was instructed to avoid fried foods, fatty foods, greasy foods. Patient was given a prescription for a short course of [place]. Patient was instructed to follow-up with her primary care physician in 5 to 7 days. Patient was also given referral for general surgery. Patient understood and was agreeable with the plan. All questions were answered. Discharge Plan Triage Chief Complaint: Abd Pain ED Provider: Juan A Saha Dx/Rx/DC Orders Clinical Impression: Right upper quadrant abdominal pain, Cholelithiasis Instructions: ED Abdominal Pain Gallstone Poss, ED Gallstones with Biliary Colic Prescriptions: New hydrocodone-acetaminophen 5-325 mg tablet 1 tab PO Q6H PRN PRN (Reason: Pain) 3 Days Qty: 10 0RF Continued ondansetron 4 MG tablet 4 mg PO Q8H PRN PRN (Reason: Nausea) Qty: 10 0RF No Action naproxen 500 MG tablet 500 mg PO BID Qty: 20 0RF naproxen 500 MG tablet 500 mg PO BID Qty: 14 0RF Primary Care Provider: Care Physician,No Primary Referrals: Becca Cabrera MD [Med Staff - Network Manager] - 5-7 Days Rob Flores MD [Med Staff - Active Staff] - 5-7 Days Care Physician,No Primary [Primary Care Provider] - Print Language: Hebrew Disposition Disposition: Home, Self Care
--- NOTE | 2023-11-03 11:11 | US_ITS ---
STUDY: ABDOMINAL ULTRASOUND - RIGHT UPPER QUADRANT REASON FOR VISIT: Female, 28 years old right upper quadrant pain. TECHNIQUE: Ultrasound evaluation of the right upper quadrant was performed with real-time and static rosas-scale imaging. TECHNICAL QUALITY: Adequate. COMPARISON: None. FINDINGS: Liver: The liver is slightly enlarged and measures 18.1 cm. There is normal echogenicity of the liver. The bile ducts are within normal limits. There is hepatic color flow. The direction of portal flow is hepatopetal. There is no demonstrated mass lesion. Gallbladder: Normal distended gallbladder. The gallbladder wall measures 2.9 mm. There is a negative sonographic Porter''s sign. There is no pericholecystic fluid. There are multiple echogenic structures within the gallbladder, consistent with multiple gallstones. Common Bile Duct (C.B.D.): The common bile duct measures 2.7 mm. Pancreas: Normal size of the head, body and tail of the pancreas. There is normal echogenicity of the pancreas. There is no demonstrated pancreatic mass or cyst. Right Kidney: Normal size of the right kidney. The right kidney measures 10.6 cm x 4 cm x 3.8 cm. Normal renal cortex. The right cortex measures 1.0 cm. There is no demonstrated renal mass or cyst. There is no right hydronephrosis. US/Gallbladder IMPRESSION: Multiple gallstones. Electronically Signed: Michel Mujica MD at 12:36 EDT ,
[2023-11-03 11:21] LABS: Absolute Lymphocyte Count 2.37 X10^3/uL (0.83-4.51); Absolute Neutrophil Count 4.1 X10^3/uL (2.0-7.7); Basophil# 0.07 X10^3/uL; Basophil% 0.9 % (0-1); Eosinophil# 0.32 X10^3/uL; Eosinophils% 4.2 % (0-5); Hematocrit 39.4 % (37-47); Hemoglobin 12.2 g/dL (12.0-15.0); Lymphocyte # 2.37 X10^3/ul (0.83-4.51); Lymphocyte % 30.9 % (19-41); Mean Corpuscular Hgb 24.9 pg (27.0-32.0); Mean Corpuscular Volume 80.4 fL (81-99); Mean Platelet Vol. 11.4 fl (6.2-12.0); Monocyte# 0.81 X10^3/uL; Monocyte% 10.6 % (0-10); NRBC Flagged by Analyzer 0 % (0-5); Neutrophil # 4.08 X10^3/uL (2.7-7.7); Neutrophil % 53.1 % (47-70); Platelet Count 317 K/mm3 (150-450); RBC Distribution Width CV 14.6 % (11.6-14.6); White Blood Count 7.7 K/mm3 (4.4-11.0)
[2023-11-03] MEDS: 0.9% Normal Saline (1000mL) 1,000 ML 999 ML IV (11:23)
[2023-11-03] MEDS: Ondansetron 4 MG/2 ML Vial IV (11:23)
[2023-11-03] MEDS: Morphine 4 MG/ML Syringe IV (11:24)
[2023-11-03 11:32] LABS: Internal QC Validated? YES +Cl - CLEAR BKGD; Pregnancy, Serum, hCG Quali. NEGATIVE Negative
[2023-11-03 11:40] LABS: ALB/GLOB Ratio 0.9 RATIO (0.9-2.4); AST(SGOT) 22 U/L (15-37); Alanine Aminotransfer ALT/SGPT 25 U/L (13-56); Albumin, Serum 3.7 g/dL (3.2-5.0); Alkaline Phosphatase 78 U/L (45-117); Anion Gap 10 (5-15); BUN 11 mg/dL (7-18); BUN/Creat Ratio 10.9 RATIO (10-20); Calcium,Total 9.2 mg/dL (8.5-10.1); Chloride 107 mmol/L (98-107); Creatinine, Serum 1.01 mg/dL (0.55-1.02); EST Glomerular Filtration Rate 69 mL/min (>60); Est Glom Filt Rate - Afr Amer 83 mL/min (>60); Estimated Creatinine Clearance 118.64 ml/min; Globulin 4.2 g/dL (2.2-4.2); Glucose 101 mg/dL (74-106); Lipase 46 U/L (13-75); Potassium 4.2 mmol/L (3.5-5.1); Protein, Total 7.9 g/dL (6.4-8.2); Sodium Level 141 mmol/L (136-145)
[2023-11-03 12:11] VITALS: BP 124/72; PULSE 55; RESP 17; O2SAT 98
--- NOTE | 2023-11-03 12:45 | ED.RN ---
Pt. cannot give urine sample and refused catheterization. Pt. verbalizes understanding that UTI cannot be ruled out without urine sample.
[2023-11-03] MEDS: 0.9% Normal Saline (1000mL) 1,000 ML 1000 ML IV (13:13)
[2023-11-03 14:00] VITALS: BP 109/75; PULSE 69; RESP 14; O2SAT 98
[2023-11-03 14:28] LABS: Red Blood Cells-Urine 0 SEEN /hpf (0-5)
[2023-11-03 14:33] LABS: Color, Urine Straw (Yellow); Glucose, Dipstick Normal (Normal); Ketone-Dipstick Negative (Negative); Leukocyte Esterase-Dipstick 25 /ul (Negative); Nitrite-Dipstick Positive (Negative); Occult Blood-Urine 10 /ul (Negative); Protein-Dipstick 15 mg/dl (Negative); Urine Bilirubin Dipstick Negative (Negative); Urine Clarity Clear (Clear); Urine Urobilinogen Normal (Normal)
[2023-11-03 14:51] LABS: Bacteria 4+ /hpf (None Seen); Mucous, Urine 1+ /hpf (<or=2+); Squamous Epithelial Cells - UA 5-10 SEEN /hpf (5-10); White Blood Cells 0-5 SEEN /hpf (0-5)
== END 2023-11-03 15:28 | disposition home or self-care (01) ==
PROVIDERS: Emergency Provider Emergency Medicine; Visit Provider Emergency Medicine
DX: K80.20 Calculus of gallbladder without cholecystitis without obstruction (principal); R19.7 Diarrhea, unspecified; R10.11 Right upper quadrant pain; E66.9 Obesity, unspecified
CPT/HCPCS: 76705; 80053; 81001; 83690; 84703; 85025; 99283; J7030; A4216; J2405

== ENCOUNTER 2023-11-27 04:18 | Emergency (ER) | payer MEDICAID, SELFPAY ==
[2023-11-27 04:19] VITALS: BP 123/84; PULSE 83; RESP 20; TEMP 36.5; O2SAT 99
--- NOTE | 2023-11-27 04:37 | EDS_ITS ---
HPI History of Present Illness Chief Complaint: Abd Pain Informant: patient and spouse/S.O. Narrative Narrative: Patient is a 28-year-old female who was seen roughly 1 month ago and ultrasound confirmed multiple gallstones. She states that last night she noticed some pain in the right upper to mid abdomen that seem to improved after she went for a walk. She states she was able to go to sleep but then awoke around 3 in the morning with similar pain. With concern this could be a flareup of her gallbladder she presents for evaluation. Patient denies any known sick contacts and states that there is no associated nausea vomiting or diarrhea associated with the pain. [facility] Medical History Heart murmur Anemia Gallstone Home Medications ?Medication ?Instructions ?Recorded ?Last Taken ?Type ondansetron 4 mg disintegrating 4 mg PO TID PRN nausea and 11/27/23 Unknown Rx tablet vomiting #21 tabs oxycodone-acetaminophen 5 mg-325 1 tab PO Q6H PRN pain 3 days #12 11/27/23 Unknown Rx mg tablet (Percocet) tabs quetiapine 25 mg tablet 25 mg PO QHS 11/27/23 Unknown History sertraline 100 mg tablet 100 mg PO DAILY 11/27/23 Unknown History Allergy/AdvReac Type Severity Reaction Status Date / Time No Known Allergies Allergy Verified 11/03/23 10:17 Surgical History (Updated 11/27/23 @ 04:22 by Zonia Hernandez) H/O adenoidectomy Social History Smoking Status: Current every day smoker tobacco type: e-cigarettes ROS ROS ED Constitutional Constitutional ED: Denies chills or fever(s) ENT ENT ED: Denies sore throat Cardiovascular Cardiovascular: Denies chest pain Respiratory/Chest Respiratory/Chest: Denies cough or dyspnea Gastrointestinal Gastrointestinal: Reports abdominal pain; Denies diarrhea, nausea or vomiting Genitourinary Genitourinary ED: Denies dysuria or hematuria Musculoskeletal Musculoskeletal: Denies back pain or myalgias Integumentary Denies rash Neurologic Neurologic: Denies headache(s) Hematologic/Lymphatic Hematologic/Lymphatic: Denies easy bleeding or easy bruising EXAM Physical Exam Const Vital Signs: 11/27/23 04:19 Temperature 97.7 F L Temperature Source Oral Pulse Rate 83 Respiratory Rate 20 H Blood Pressure 123/84 H Blood Pressure Mean 97 Pulse Ox 99 Oxygen Delivery Method Room Air Positive well nourished, well developed and obese General Appearance ED: well developed; Negative for pallor Nutritional Appearance: obese HEENT Reports moist mucous membranes HEENT Narrative: No signs of infection noted in the posterior pharynx Eyes PERRL and EOMs intact bilaterally General Eye ED: Negative for scleral icterus Neck supple Resp normal respiratory effort and clear to auscultation bilaterally Cardio regular rate and regular rhythm Rate: other Other Details: Radial and carotid pulses equal and symmetric GI non-distended and no masses GI Narrative: Abdomen is soft and nondistended with normal active bowel sounds. Patient has pain on palpation in the midepigastric and right upper quadrant region without voluntary guarding or rigidity. Negative Porter sign. No pulsatile mass or fluid wave Auscultation: normoactive bowel sounds Palpation: soft Back/Spine no CVA tenderness Extremity normal to inspection Neuro oriented x3, CN's II-XII intact bilaterally and no sensory deficits noted Sensorium / Orientation: alert Motor Exam: strength 5/5 throughout Psych mental status grossly normal Skin no rashes or lesions noted General Skin Exam: Negative for jaundice or pallor MDM MDM MDM Narrative Medical decision making narrative: Patient arrived to the ER with stable vitals and reported pain in the right upper quadrant and midepigastric region. She had an ultrasound done roughly 3 weeks ago which showed gallstones without signs of infection. Therefore differential diagnosis is for biliary colic versus acute cholecystitis versus gallstone pancreatitis versus gastritis. As she has had a recent ultrasound and has stable vitals I felt no need for emergent imaging studies. Basic blood work was obtained and it shows no elevation to her white count or left shift. Lipase is normal going against pancreatitis and liver enzymes are also normal going against cholecystitis. On reevaluation patient now has resolution of her pain after provided morphine in the ER. Therefore at this time with stable vitals and negative workup and resolution of pain I do not feel there is need for repeat imaging or admission and patient can be discharged home with symptomatic care. History & Record Review Discussion w/independent historian: Patient and Significant other Lab Data Attestation: I reviewed the patient's lab results. Labs: Laboratory Results - last 24 hr 11/27/23 04:30 WBC 8.7 RBC 4.65 Hgb 11.7 L Hct 38.5 MCV 82.8 MCH 25.2 L MCHC 30.4 L RDW Std Deviation 45.7 H RDW Coeff of Marvin 15.2 H Plt Count 370 MPV 11.1 Immature Gran % (Auto) 0.200 Neut % (Auto) 58.5 Lymph % (Auto) 29.0 [place] % (Auto) 8.6 Eos % (Auto) 2.9 Baso % (Auto) 0.8 Absolute Neuts (auto) 5.1 Absolute Lymphs (auto) 2.51 Nucleated RBC % 0 Sodium 140 Potassium 3.9 Chloride 106 Carbon Dioxide 26.0 Anion Gap 8 BUN 13 Creatinine 1.06 H Est GFR (MDRD) Af Amer 78 Est GFR (MDRD) Non-Af 65 BUN/Creatinine Ratio 12.3 Glucose 120 H Calcium 8.8 Total Bilirubin 0.20 Direct Bilirubin 0.06 AST 16 ALT 14 Alkaline Phosphatase 85 Total Protein 7.3 Albumin 3.3 Globulin 4.0 Lipase 53 Discharge Plan Triage Chief Complaint: Abd Pain ED Provider: Shailesh Merritt Dx/Rx/DC Orders Clinical Impression: Biliary colic, Cholelithiasis Instructions: ED Gallstones with Biliary Colic Prescriptions: New oxycodone-acetaminophen [Percocet] 5-325 mg tablet 1 tab PO Q6H PRN (Reason: pain) 3 Days Qty: 12 0RF ondansetron 4 mg tablet,disintegrating 4 mg PO TID PRN (Reason: nausea and vomiting) Qty: 21 0RF No Action quetiapine 25 mg tablet 25 mg PO QHS sertraline 100 mg tablet 100 mg PO DAILY Primary Care Provider: Care Physician,No Primary Referrals: Violeta Chong MD [Med Staff - Active Staff] - Care Physician,No Primary [Primary Care Provider] - Activity Restrictions/Additional Instructions: Please follow-up with general surgery to discuss potential gallbladder removal. Take the prescribed medication as directed to help control symptoms and return to the ER should you have any further concerns Print Language: Faroese Disposition Disposition: Home, Self Care
[2023-11-27] MEDS: 0.9% Normal Saline (1000mL) 1,000 ML 999 ML IV (04:46)
[2023-11-27] MEDS: Ondansetron 4 MG/2 ML Vial IV (04:46)
[2023-11-27] MEDS: Morphine 4 MG/ML Syringe IV (04:46)
[2023-11-27 04:51] LABS: Absolute Lymphocyte Count 2.51 X10^3/uL (0.83-4.51); Absolute Neutrophil Count 5.1 X10^3/uL (2.0-7.7); Basophil# 0.07 X10^3/uL; Basophil% 0.8 % (0-1); Eosinophil# 0.25 X10^3/uL; Eosinophils% 2.9 % (0-5); Hematocrit 38.5 % (37-47); Hemoglobin 11.7 g/dL (12.0-15.0); Lymphocyte # 2.51 X10^3/ul (0.83-4.51); Mean Corp Hgb Conc 30.4 g/dL (32-36); Mean Corpuscular Hgb 25.2 pg (27.0-32.0); Mean Corpuscular Volume 82.8 fL (81-99); Mean Platelet Vol. 11.1 fl (6.2-12.0); Monocyte# 0.74 X10^3/uL; Monocyte% 8.6 % (0-10); NRBC Flagged by Analyzer 0 % (0-5); Neutrophil # 5.06 X10^3/uL (2.7-7.7); Neutrophil % 58.5 % (47-70); Platelet Count 370 K/mm3 (150-450); RBC Distribution Width CV 15.2 % (11.6-14.6); RBC Distribution Width SD 45.7 fl (35.1-43.9); Red Blood Count 4.65 M/mm3 (4.2-5.4); White Blood Count 8.7 K/mm3 (4.4-11.0)
[2023-11-27 05:06] LABS: AST(SGOT) 16 U/L (15-37); Alanine Aminotransfer ALT/SGPT 14 U/L (13-56); Albumin, Serum 3.3 g/dL (3.2-5.0); Alkaline Phosphatase 85 U/L (45-117); Anion Gap 8 (5-15); BUN 13 mg/dL (7-18); BUN/Creat Ratio 12.3 RATIO (10-20); Bilirubin, Direct 0.06 mg/dL (0.00-0.30); Calcium,Total 8.8 mg/dL (8.5-10.1); Chloride 106 mmol/L (98-107); Creatinine, Serum 1.06 mg/dL (0.55-1.02); EST Glomerular Filtration Rate 65 mL/min (>60); Est Glom Filt Rate - Afr Amer 78 mL/min (>60); Glucose 120 mg/dL (74-106); Lipase 53 U/L (13-75); Potassium 3.9 mmol/L (3.5-5.1); Protein, Total 7.3 g/dL (6.4-8.2); Sodium Level 140 mmol/L (136-145)
[2023-11-27 06:01] VITALS: BP 102/69; PULSE 72; RESP 20; TEMP 36.4; O2SAT 94
== END 2023-11-27 06:02 | disposition home or self-care (01) ==
PROVIDERS: Emergency Provider Emergency Medicine; Visit Provider Emergency Medicine
DX: K80.70 Calculus of gallbladder and bile duct without cholecystitis without obstruction (principal); F17.290 Nicotine dependence, other tobacco product, uncomplicated; E66.9 Obesity, unspecified
CPT/HCPCS: 80048; 80076; 83690; 85025; 96361; 96374; 96375; 99283; J7030; J2405

== ENCOUNTER 2023-12-15 08:12 | Day surgery (SDC) | payer MEDICAID, SELFPAY ==
[2023-12-15] VITALS (8 sets, daily range): BP systolic 91–137; BP diastolic 47–76; PULSE 63–89; RESP 16; TEMP 36–36.4; O2SAT 98–99; BMI 35.9
--- NOTE | 2023-12-15 08:29 | PRE.ANES_ITS ---
ASA Classification* ASA Classification ASA Classification: 2 Assessment & Plan Anesthesia* Anesthesia Assessment Anesthesia Assessment: Discussed sedation and/or anesthesia options, risks, benefits, and alternatives with patient/parents/legal guardian/POA. Questions invited. The patient/parents/legal guardian/POA seems to understand and agrees to proceed with anesthesia plan. Reviewed the physical assessment, medical history, allergy history and patient home medications list prior to surgery/procedure/anesthetic and documented any changes. Performed airway and anesthesia risk assessments. Anesthesia Type Anesthesia Type: MAC Anesthesia Focused Assessment* Airway Assessment Mouth opens: >3 cm Mallampati Score: II Focused Labs Anesthesia Preop lab: CBC WBC 8.7 K/mm3 (4.4-11.0) 11/27/23 04:30 RBC 4.65 M/mm3 (4.2-5.4) 11/27/23 04:30 Hgb 11.7 g/dL (12.0-15.0) L 11/27/23 04:30 Hct 38.5 % (37-47) 11/27/23 04:30 Plt Count 370 K/mm3 (150-450) 11/27/23 04:30 CHEMISTRY Potassium 3.9 mmol/L (3.5-5.1) 11/27/23 04:30 Sodium 140 mmol/L (136-145) 11/27/23 04:30 BUN 13 mg/dL (7-18) 11/27/23 04:30 Creatinine 1.06 mg/dL (0.55-1.02) H 11/27/23 04:30 Glucose 120 mg/dL (74-106) H 11/27/23 04:30 COAG Urine Test Negative Negative 03/18/14 11:10 Pre-Assessment Diagnosis/Proposed Procedure Planned Operative Procedure(s): EGD Anesthesia History 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 When Was Last Pacemaker Check QUESTION #4 FULL TEXT: You/Your Family Experience fever (hyperthermia) with Anesthesia Last Oral Intake Last Oral intake: Last Oral Intake NPO since Meds taken in AM with sips of water? Meds patient instructed to take am of surgery PONV PONV - agricultural commodities grader: PONV - agricultural commodities grader Female Yes 12/12/23 12:28 HX of Motion Sickness No 12/12/23 12:28 HX of N/V After Surgery No 12/12/23 12:28 Non-Smoker No 12/12/23 12:28 Duration of Surgery greater No 12/12/23 12:28 than 60 minutes Number of Risk Factors 1 12/12/23 12:28 PONV Score Low Risk 12/12/23 12:28 Height & Weight Height & Weight: Anesthesia: Height & Weight Height 6 ft 12/01/23 13:33 Respiratory Assessment Respiratory Assessment - agricultural commodities grader: Respiratory Tract Infection Hx - agricultural commodities grader Hx Respiratory Tract Infection No 12/12/23 12:28 STOP Sleep Apnea STOP Sleep Apnea - agricultural commodities grader: STOP Sleep Apnea - agricultural commodities grader Hx Hypertension No 12/12/23 12:28 Hx Sleep Apnea No 12/12/23 12:28 CPAP BIPAP Do you snore loudly (louder Yes 12/12/23 12:28 than talking or can be heard Do you often feel tired/ No 12/12/23 12:28 fatigued/ sleepy during daytime? Has anyone observed you stop No 12/12/23 12:28 breathing during sleep? STOP Results Negative 12/12/23 12:28 QUESTION #5 FULL TEXT : Do you snore loudly (louder than talking or can be heard through closed doors)? 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 Specify any problems Hx of Preganancy in last 3 No 12/12/23 12:28 Months Nurse Filling Out Transfusion DSCHRIBER 12/12/23 12:28 & Questions: Date: 12/12/23 12/12/23 12:28 Time: 12:29 12/12/23 12:28 Patient unable to answer at this time (ie. confused, unrespo /Reproduction History /Reproductive History - agricultural commodities grader: /Reproductive Hx- agricultural commodities grader Hx Now No 12/12/23 12:28 Gestational Age (in weeks): EDC: Hx Hx Para Hx Section SAB No 12/12/23 12:28 Active Medications Active Medications: Current Medications Generic Name Dose Route Start Last Admin Trade Name Freq PRN Reason Stop Dose Admin Lactated Ringer's 1,000 mls @ 15 mls/hr 12/15/23 08:15 IV .Q48H BRITTANY PFSH Medical History Wears contact lenses Depression Anxiety Easy bruising Back pain Gastric reflux Vapes nicotine containing substance History of stress test Anemia Home Medications ?Medication ?Instructions ?Recorded ?Last Taken ?Type quetiapine 25 mg tablet 25 mg PO QHS 11/27/23 Unknown History sertraline 100 mg tablet 100 mg PO DAILY 11/27/23 Unknown History pantoprazole 20 mg tablet,delayed 20 mg PO DAILY #30 tabs 12/01/23 Unknown Rx release Allergy/AdvReac Type Severity Reaction Status Date / Time No Known Allergies Allergy Verified 12/15/23 08:26 Family History Grandmother Diabetes Mother Heart disease Surgical History H/O adenoidectomy Social History Smoking Status: Current every day smoker tobacco type: e-cigarettes Review of Systems (Anesthesia) ROS Narrative System reviewed and no additional complaints, except as documented.
[2023-12-15] MEDS: Lactated Ringers 1,000 ML 15 ML IV (08:47)
[2023-12-15 08:51] LABS: Internal QC Validated? YES +Cl - CLEAR BKGD; Pregnancy, Serum, hCG Quali. NEGATIVE Negative; Record Kit Lot#, Serum Preg. 772476
--- NOTE | 2023-12-15 09:27 | HP.PCM_ITS ---
History and Physical Date of Admission: 12/15/23 MR#: [id number] Acct: [id number] Name: GWYN BALTAZAR Rep #: [id number] : 1995 Provider: Dr. Rob Flores MD Age/Sex: 28/F Location: [facility] Status: Signed Intake Vital Signs 11/02/2409:11 11/27/2403:19 11/30/2412:33 Height 5 ft 11 in 5 ft 11 in 6 ft Weight: 271 lb BMI 36.7 BP 110/79 Blood Pressure Location Rt brachial Position Sitting Respiration 18 Pulse 91 Pulse Source Monitor Temp 97.6 F L Temp Source Temporal Pulse Oximetry (%) 99 Oxygen Delivery Method room air Intake Visit Reasons: F/U ED - [facility] Chief Complaint: F/U ED- [facility] Accompanied by: Friend Is patient in pain?: No Allergies No Known Allergies Allergy (Verified 12/01/23 13:34) Medications ?Medication ?Instructions ?Recorded ?Confirmed ?Type ondansetron 4 mg disintegrating 4 mg PO TID PRN nausea and 11/27/23 12/01/23 Rx tablet vomiting #21 tabs oxycodone-acetaminophen 5 mg-325 1 tab PO Q6H PRN pain 3 days #12 11/27/23 12/01/23 Rx mg tablet (Percocet) tabs quetiapine 25 mg tablet 25 mg PO QHS 11/27/23 12/01/23 History sertraline 100 mg tablet 100 mg PO DAILY 11/27/23 12/01/23 History pantoprazole 20 mg tablet,delayed 20 mg PO DAILY #30 tabs 12/01/23 12/01/23 Rx release Have you fallen in the past year?: No PFSH Medical History Heart murmur Anemia Gallstone Surgical History H/O adenoidectomy Family History (Updated 12/01/23 @ 13:33 by Sis Stevenson LPN) Grandmother DiabetesMother Heart disease Social History Smoking Status: Current every day smoker tobacco type: e-cigarettes HPI HPI HPI: Patient is a 28-year-old female who presents for possible biliary colic. They are referred for surgical consultation from emergency medicine as she has not established a PCP. Patient states that she is recently relocated to [facility] from [facility]. She describes presence of both right upper quadrant and central upper abdominal pain. She notes that her right upper abdominal pain started 6 months ago while the more central pain started 2 to 3 days ago. She shares that the pain seems to come and go. She declares that fatty foods seem to provoke the pain but that the pain starts immediately after eating. She also denies any association with time of day. She does claim that there is 1 episode of nausea but no vomiting. She denies any associated fevers or chills. The only other trigger besides food that she has identified is that sometimes it hurts more when leaning forward. She confirms that her bowel movements have been normal. She denies any history of reflux or heartburn. Given the above symptoms patient was referred to surgery and she states flatly that they did not recommend proceeding for surgery but offered that she could consider HIDA imaging. Previous work-up has included: Right upper quadrant ultrasound was performed on 11/03/2023 patient was found to have evidence of cholelithiasis with normal wall and normal duct. Patient reveals a past medical history of a heart murmur which she states was rather an incidental finding during a workup for anemia around the time of delivery of her second child in 2017. She states that she has undergone a couple of echocardiograms through [facility] that have been reassuring. She estimates that the last such study was performed a year ago. Concerning her history of anemia she denies being told the probable cause but does state that she was prescribed iron and she is no longer carrying on with this supplementation. Patient's only past surgical history was that of an adenoidectomy. ROS General General: Yes weight change (gain); No appetite, fatigue, colon cancer, breast cancer or weakness HEENT HEENT: No difficulty swallowing, eye injury, eye surgery, swollen glands or hoarseness Endo Endocrine: No thyroid disease, diabetes mellitus, thyroid cancer, Hair loss, heat intolerance or cold intolerance Skin Skin: No rash or changing moles Musc Musculoskeletal: No back problems, arthritis, rheumatoid arthritis, gout or joint pain Cardio Cardiovascular: Yes murmur; No pacemaker, heart disease, atrial fibrillation, high blood pressure, heart attack, heart stent, palpitations, shortness of breat with exertion or chest pain Psych Psychiatric: Yes depression and anxiety; No hearing voices Resp Respiratory: No shortness of breath, No sleep apnea, No cough, No COPD, No asthma, No emphysema and No wheezing Gastro Gastrointestinal: Yes abdominal pain, Yes nausea or vomiting, No diarrhea, No constipation, No blood in stool, No acid reflux, No hemorrhoids, No ulcers, Yes gallbladder problem and No black,tarry stools Jose Hematologic: No blood thinners, No blood disorders, No bleeding, Yes anemia and No blood clots Neuro Neurologic: No numbness, No tingling and No weakness Exam Const General: cooperative and no acute distress Orientation: alert, awake and oriented x3 GI Other: Obese, nondistended, soft, mild tenderness to palpation of the epigastrium but minimal discomfort of the right upper quadrant and certainly negative Porter sign Assessment and Plan Assessment and Plan (1) Cholelithiasis: Status: Acute Comment: Patient with a history of cholelithiasis that was diagnosed through several ER visits for upper abdominal pain. Patient's most recent ultrasound from October of this year was reviewed and does confirm just cholelithiasis. Patient's descriptions of abdominal pain are not necessarily consistent with a gallbladder source given the timing of the onset of pain with eating and where her exam shows the discomfort to be most pronounced. She also shares that she met with surgery previously for a consultation and no surgery was offered at that time but she was given an offer for a HIDA imaging. I shared with patient that I largely agreed with this assessment yet, I do find her epigastric tenderness to be somewhat significant and would question if this is perhaps related to an underlying gastritis or gastric ulcer. Thus while I offered hide imaging could be completed I did recommend we proceed with EGD first and if this study is negative then proceed with the nuclear study. Patient was receptive of this recommendation. Plan: Hold on additional gallbladder workup for now. Given patient's prior diagnoses and no recent following I recommended that she establish care with a new PCP in town (2) Epigastric abdominal pain: Status: Acute Comment: Plan to proceed for EGD to evaluate for possible gastritis/gastric ulcer/other. In the meantime patient wishes to know what she is to do about her pain. I do not believe that continuing to treat this with analgesics or narcotics is in patient's best interest if we have a more probable cause with treatment of her potential ulcer disease so I will begin PPI therapy. Plan: ? EGD ? In the interim begin pantoprazole 20 mg daily each morning Medications: New pantoprazole Take one tablet by mouth in the morning 20 mg PO DAILY 30 tabs 0RF I have examined the patient the following changes are noted: Patient shares that her abdominal symptoms are somewhat improved. Her exam and demonstrates further epigastric tenderness. Will plan to biopsy for H. pylori and then as necessary. Patient requests that I simply telephone her with results after pathology is known. Will proceed to endoscopy suite now for EGD.
--- NOTE | 2023-12-15 09:30 | IMM_PTH ---
PATIENT: GWYN BALTAZAR LOC: EN U#:[id number] AGE/SX: 28/F ROOM: RE12/15/[address]: Dr. Rob Flores MD : 1995 BED: DIS: 12/15/2023 SPEC #: [id number] RECD: 12/15/23 11:12 STATUS: ISHA MCKAYLA #: [id number] ALEXANDRA: 12/15/23 09:[address]: Rob Flores DEPT: IMMUNOHISTOCHEMISTRY RECD BY: Loi Jewell ENTERED: 12/15/23 11:12 SP TYPE: IMMUNO OTHR DR: No Primary Care Phys Tissues: B - Gastric mucous membrane Procedures: H Pylori (initial) PHYSICIAN & INSTITUTION [place] [id number] SPECIMEN INFORMATION: Tissue Source: B- Antrum biopsy Clinical Info: Cholelithiasis, epigastric abdominal pain Specimen Number: [id number] CPT code: 89658 METHODOLOGY: Deparaffinized sections of prefer/formalin-fixed tissue or PAP/DQ stained slides are incubated with monoclonal/polyclonal antibodies/oligonucleotide probes. Localization is made via biotin free immunoperoxidase method. Appropriate controls are performed and reacted as expected. Results on target cell population are indicated in the following table: RESULTS: ANTIBODY / CLONE RESULT Block B H Pylori (polyclonal) negative These tests were developed and their performance characteristics determined by [facility]. They may not have been cleared or approved by the U.S. Food and Drug Administration. The FDA has determined that such clearance or approval is not necessary. The above immunohistochemical/dualISH markers are ordered and reviewed by the Pathologist. INTERPRETATION: B. Antrum, biopsy: Negative for Helicobacter pylori organisms. KARIN/ 12/18/2023
--- NOTE | 2023-12-15 09:30 | EGD_PTH ---
PATIENT: GWYN BALTAZAR LOC: EN U#:[id number] AGE/SX: 28/F ROOM: RE12/15/[address]: Dr. Rob Flores MD : 1995 BED: DIS: 12/15/2023 SPEC #: [id number] RECD: 12/15/23 10:50 STATUS: ISHA MCKAYLA #: [id number] ALEXANDRA: 12/15/23 09:[address]: Rob Flores DEPT: SURGICAL PATHOLOGY RECD BY: Lyle Hernandez ENTERED: 12/15/23 11:18 SP TYPE: EGD BIOPSY OT DR: No Primary Care Phys Tissues: A - Duodenum, NOS B - Gastric mucous membrane C - Gastric mucous membrane Procedures: Surgery Specimen Level IV HEADER OPERATION: EGD- biopsy PRE-OP DIAGNOSIS: Cholelithiasis, epigastric abdominal pain TISSUE SUBMITTED: A- Duodenum bulb nodule, B- Antrum biopsy, C- Gastroesophageal junction biopsy MICROSCOPIC DIAGNOSIS A. Duodenal bulb nodule, biopsy: A fragment of duodenal mucosa, no pathologic diagnosis. B. Antrum, biopsy: Mild gastritis. See microscopic description and comment. C. Gastroesophageal junction, biopsy: A fragment of gastroesophageal mucosa with chronic inflammation. Intestinal metaplasia (goblet cell metaplasia) not identified. See comment. KARIN/ 12/18/2023 COMMENT B. The results of immunohistochemistry for Helicobacter pylori will be reported separately ([id number]). C. Alcian blue/PAS stain with matched control is used in the evaluation of the specimen. MICROSCOPIC DESCRIPTION Slides are reviewed. B. The specimen shows fragments of gastric mucosa with chronic inflammatory cell infiltrates in the lamina propria consisting of lymphocytes and plasma cells, consistent with mild chronic gastritis. GROSS DESCRIPTION A. Received in fixative is one container labeled with the patient's name and designated Duodenum bulb nodule biopsy. The specimen consists of one irregular fragment of light clayton soft tissue that measures 0.3 x 0.2 x 0.1 cm. The specimen is totally submitted in one cassette. B. Received in fixative is one container labeled with the patient's name and designated Antrum biopsy. The specimen consists of multiple irregular fragments of light clayton soft tissue that in aggregate measure 0.8 x 0.3 x 0.1 cm. The specimen is totally submitted in one cassette. C. Received in fixative is one container labeled with the patient's name and designated GE junction biopsy. The specimen consists of one irregular fragment of light clayton soft tissue that measures 0.3 x 0.2 x 0.1 cm. The specimen is totally submitted in one cassette. Minerva 12/15/2023 TC:3 CPT:37339t0,36043
--- NOTE | 2023-12-15 10:09 | OP.EGD_ITS ---
Patient Name: Agueda Lewis Procedure Date: 12/15/2023 9:32 AM Date of : 1995 Age: 28 Procedure: Upper GI endoscopy Indications: Epigastric abdominal pain, Suspected gastro-esophageal reflux disease Providers: Rob Flores MD Medicines: See the Anesthesia note for documentation of the administered medications Patient Profile: Refer to note in patient chart for documentation of history and physical. Patient has symptoms of chronic epigastric abdominal pain. Complications: No immediate complications. Estimated blood loss: Minimal. Procedure: Pre-Anesthesia Assessment: - The heart rate, respiratory rate, oxygen saturations, blood pressure, adequacy of pulmonary ventilation, and response to care were monitored throughout the procedure. After obtaining informed consent, the endoscope was passed under direct vision. Throughout the procedure, the patient's blood pressure, pulse, and oxygen saturations were monitored continuously. The Endoscope was introduced through the mouth, and advanced to the second part of duodenum. The upper GI endoscopy was accomplished without difficulty. The patient tolerated the procedure well. Scope In: 9:42:59 AM Scope Out: 10:00:40 AM Total Procedure Duration Time 0 hours 17 minutes 41 seconds Findings: Diffuse nodular mucosa was found in the duodenal bulb. Biopsies were taken with a cold forceps for histology. Estimated blood loss was minimal. Localized mildly erythematous mucosa without bleeding was found in the gastric antrum. Biopsies were taken with a cold forceps for Helicobacter pylori testing. Estimated blood loss was minimal. The Z-line was regular. Biopsies were taken with a cold forceps for histology. Estimated blood loss was minimal. The gastroesophageal flap valve was visualized endoscopically and classified as Hill Grade I (prominent fold, tight to endoscope). No biopsies or other specimens were collected for this exam. The exam was otherwise without abnormality. Impression: - Nodular mucosa in the duodenal bulb. Biopsied. - Erythematous mucosa in the antrum. Biopsied. - Z-line regular. Biopsied. - Gastroesophageal flap valve classified as Hill Grade I (prominent fold, tight to endoscope). No specimens collected. - The examination was otherwise normal. Recommendation: - Discharge patient to home (via wheelchair). - Resume previous diet today. - No aspirin, ibuprofen, naproxen, or other non-steroidal anti-inflammatory drugs for 2 days after biopsy. Procedure Code(s): --- Professional --- 59794, Esophagogastroduodenoscopy, flexible, transoral; with biopsy, single or multiple Diagnosis Code(s): --- Professional --- K31.89, Other diseases of stomach and duodenum R10.13, Epigastric pain CPT copyright 2021 [employer]. All rights reserved. The codes documented in this report are preliminary and upon cryptographic clerk review may be revised to meet current compliance requirements. Rob Flores MD 12/15/2023 10:09:08 AM This report has been signed electronically. Number of Addenda: 0 Note Initiated On: 12/15/2023 9:32 AM
--- NOTE | 2023-12-15 10:09 | OP.CCLET_ITS ---
12/15/2023 No Primary Care Physician Re : Upper GI endoscopy procedure for Agueda Lewis Dear Care Physician This procedure was performed on Friday, December 15, 2023. My impressions and recommendations are as follows: Impressions : - Nodular mucosa in the duodenal bulb. Biopsied. - Erythematous mucosa in the antrum. Biopsied. - Z-line regular. Biopsied. - Gastroesophageal flap valve classified as Hill Grade I (prominent fold, tight to endoscope). No specimens collected. - The examination was otherwise normal. Recommendations : - Discharge patient to home (via wheelchair). - Resume previous diet today. - No aspirin, ibuprofen, naproxen, or other non-steroidal anti-inflammatory drugs for 2 days after biopsy. My findings are described in the full procedure note, which is enclosed. If I can be of further assistance, please feel free to contact me at Doctor phone number(s): , Work: . Sincerely, Rob Flores MD 12/15/2023 10:09:08 AM This report has been signed electronically.
--- NOTE | 2023-12-15 10:12 | PCM.POST.ANE ---
Anesthesia: Postop Eval I Current Vital Signs Temperature: 97 F Pulse Rate: 66 Blood Pressure: 92/58 Respiratory Rate: 16 Pulse Ox: 98 Oxygen Delivery Method: Room Air Assessment Airway patent: Yes Spontaneous unlabored respirations: Yes Mental status: Asleep nausea: No Vomiting: No Anesthesia Complication: No Fluid Hydration Crystalloid volume administer (ml): 800 Total IV fluid infused: 800 Progress Note Anesthesia document: Postop Eval 1 completed: Yes
--- NOTE | 2023-12-15 13:05 | PCM.POSTANE2 ---
Anesthesia Postop Eval I Sum Postop Eval Completion status Anesthesia document: Postop Eval 1 completed: Yes Anesthesia Postop Eval I Summary Anesthesia Postop Eval I Summary: Anesthesia Postop Eval I: Assessment Summary Airway patent Yes 12/15/23 10:13 [email or web address] Spontaneous unlabored Yes 12/15/23 10:13 [email or web address] respirations Mental status Asleep 12/15/23 10:13 [email or web address] nausea No 12/15/23 10:13 [email or web address] Vomiting No 12/15/23 10:13 [email or web address] Anesthesia Postop Eval I: Fluid Summary Crystalloid volume administer 800 12/15/23 10:13 [email or web address] (ml) Colloids volume administered ( ml) Blood Product volume administered (ml) Total IV fluid infused 800 12/15/23 10:13 [email or web address] Anesthesia Postop Eval I: Summary Notes Anesthesia Complication No 12/15/23 10:13 [email or web address] Anesthesia Complication Comment: Post-operative progress note Anesthesia: Postop Eval II Evaluation Mental status: Awake and Calm Pain Level: 0 nausea: No Vomiting: No Complications Anesthesia Complication: No
== END 2023-12-15 11:00 | disposition home or self-care (01) ==
LOC: EN 08:13 → AC 08:14
PROVIDERS: Anesthesiology; Visit Provider Surgery
PROC: 0DJ08ZZ Inspection of Upper Intestinal Tract, Via Natural or Artificial Opening Endoscopic (ICD-10-PCS; CPT 43235; principal; 2023-12-15 09:25)
DX: K29.70 Gastritis, unspecified, without bleeding (principal); K21.9 Gastro-esophageal reflux disease without esophagitis; K31.89 Other diseases of stomach and duodenum; F17.290 Nicotine dependence, other tobacco product, uncomplicated; F32.A Depression, unspecified; F41.9 Anxiety disorder, unspecified; Z79.899 Other long term (current) drug therapy
CPT/HCPCS: 43239; 84703; 88305; 88342; J7120; J2405

== ENCOUNTER 2023-12-24 01:43 | Emergency (ER) | payer MEDICAID, SELFPAY ==
[2023-12-24 01:43] VITALS: BP 135/88; PULSE 73; RESP 16; TEMP 36.4; O2SAT 100; BMI 36.9
--- NOTE | 2023-12-24 02:17 | ED.VIS.GI ---
HPI HPI - GI History of Present Illness Chief Complaint: Abd Pain Informant: patient and spouse/S.O. Narrative Narrative: 28-year-old female presents with 1-2 hours worth of right upper quadrant pain and nausea/vomiting, presenting to the ER around 130-2 AM, when she ate dinner she had a cheeseburger with mayonnaise on it and this started several hours later. She states she has known gallstones. She has had intermittent pain similar to this in the past 6 months and was seeing a surgeon in [place] and then saw Dr. Flores here after moving here, she had an EGD about a week ago or more, and states she is to follow-up but this is similar pain just worse. No fevers, chills, jaundice, diffuse itching. Recently normal bowel movements. [facility] Medical History Wears contact lenses Depression Anxiety Easy bruising Back pain Gastric reflux Vapes nicotine containing substance History of stress test Anemia Home Medications ?Medication ?Instructions ?Recorded ?Last Taken ?Type quetiapine 25 mg tablet 25 mg PO QHS 11/27/23 Unknown History sertraline 100 mg tablet 100 mg PO DAILY 11/27/23 Unknown History pantoprazole 20 mg tablet,delayed 20 mg PO DAILY #30 tabs 12/01/23 12/14/23 Rx release Allergy/AdvReac Type Severity Reaction Status Date / Time No Known Allergies Allergy Verified 12/24/23 01:43 Family History Grandmother Diabetes Mother Heart disease Surgical History H/O adenoidectomy Social History Smoking Status: Current every day smoker tobacco type: e-cigarettes ROS ROS ED Constitutional Constitutional ED: Denies chills or fever(s) Eyes Eyes: Denies change in vision or diplopia ENT ENT ED: Denies rhinorrhea or sore throat Cardiovascular Cardiovascular: Denies chest pain or palpitations Respiratory/Chest Respiratory/Chest: Denies cough or dyspnea Gastrointestinal Gastrointestinal: Reports abdominal pain, nausea and vomiting; Denies diarrhea Genitourinary Genitourinary ED: Denies dysuria or hematuria Musculoskeletal Musculoskeletal: Denies back pain or neck pain Integumentary Denies abscess or rash Neurologic Neurologic: Denies headache(s), paresthesias or weakness Psychiatric Psychiatric: Denies suicidal thoughts EXAM Physical Exam Const Vital Signs: 12/24/23 01:43 Temperature 97.6 F L Temperature Source Temporal Pulse Rate 73 Respiratory Rate 16 Blood Pressure 135/88 H Blood Pressure Mean 103 Pulse Ox 100 Positive well nourished and well developed General Appearance ED: well developed and NAD HEENT Reports moist mucous membranes normocephalic and atraumatic Eyes PERRL and EOMs intact bilaterally Neck full ROM and supple Resp normal respiratory effort and clear to auscultation bilaterally Cardio regular rate, regular rhythm and no murmurs GI non-distended GI Narrative: RUQ tenderness. borderline porter's. otherwise, benign and nontender throughout, including epigastrium. No rebound tenderness. Auscultation: normoactive bowel sounds Palpation: soft Back/Spine no CVA tenderness General Back: other FROM Extremity normal to inspection General Extremety ED: Negative for edema, pulses abnormal or tenderness General Extremity: Negative for edema or pulses abnormal Neuro oriented x3, CN's II-XII intact bilaterally and no sensory deficits noted Sensorium / Orientation: awake and alert Motor Exam: strength 5/5 throughout Psych mental status grossly normal and thought process normal Skin no rashes or lesions noted and no wounds MDM MDM MDM Narrative Medical decision making narrative: I reviewed some old records. Patient states she was instructed on no diet changes. When I told her about how the meal she had had multiple fatty components and could easily trigger biliary colic, she seems somewhat surprised. Reviewing her surgery visit, it appears that she was counseled on diet at that time. They performed an EGD first because she was having a lot of what sounded like stomach discomfort, it did show some mild gastritis she is on a PPI, and it seemed like the plan next was to obtain nuclear imaging which has not happened yet, she has not had a follow-up appointment yet. She presents at a time when emergent ultrasound is not available, some starting with symptom control, fluids, and labs. Differential includes biliary colic due to stones in the meal that she had in addition to cute cholecystitis, pancreatitis, biliary obstruction. Labs reviewed. They are normal. Her white blood count is at the high end of normal there is no shift or trend toward it or bands. Her liver enzymes and lipase are normal, arguing against acute cholecystitis, pancreatitis, biliary obstruction. On reevaluation after Toradol, morphine, Zofran she is feeling much better. Her pain is minimal. On reexamination she has some mild tenderness in the right upper quadrant but no Porter sign. She is comfortable going home and comfortable allowing this, advising her to follow-up as scheduled with surgery in 1.5 - 2 weeks, we discussed reasons to return and to attempt a fat-free diet as well as she is able in the meantime she is comfortable with that plan. History & Record Review Additional record(s) reviewed:: Prior outpatient record (surgery visit, EGD, biopsy results) and Other (Ultrasound 11/03/2023 showing multiple gallstones) Lab Data Attestation: I reviewed the patient's lab results. Labs: Laboratory Results - last 24 hr 12/24/23 01:59 WBC 9.9 RBC 4.60 Hgb 11.7 L Hct 38.2 MCV 83.0 MCH 25.4 L MCHC 30.6 L RDW Std Deviation 48.6 H RDW Coeff of Marvin 15.9 H Plt Count 311 MPV 11.0 Immature Gran % (Auto) 0.200 Neut % (Auto) 66.9 Lymph % (Auto) 20.3 [place] % (Auto) 9.0 Eos % (Auto) 3.0 Baso % (Auto) 0.6 Absolute Neuts (auto) 6.6 Absolute Lymphs (auto) 2.01 Nucleated RBC % 0 Sodium 137 Potassium 3.7 Chloride 106 Carbon Dioxide 28.0 Anion Gap 3 L BUN 8 Creatinine 1.06 H Estim Creat Clear Calc 115.29 Est GFR (MDRD) Af Amer 78 Est GFR (MDRD) Non-Af 65 BUN/Creatinine Ratio 7.5 L Glucose 112 H Calcium 9.0 Total Bilirubin 0.20 AST 13 L ALT 15 Alkaline Phosphatase 80 Total Protein 7.5 Albumin 3.4 Globulin 4.1 Albumin/Globulin Ratio 0.8 L Lipase 59 Discharge Plan Triage Chief Complaint: Abd Pain ED Provider: Timur Sands Dx/Rx/DC Orders Clinical Impression: Biliary colic, Cholelithiasis Instructions: ED Diet, Low Fat, ED Gallstones with Biliary Colic Prescriptions: No Action pantoprazole 20 mg tablet,delayed release (DR/EC) 20 mg PO DAILY Qty: 30 0RF Rx Instructions: Take one tablet by mouth in the morning quetiapine 25 mg tablet 25 mg PO QHS sertraline 100 mg tablet 100 mg PO DAILY Primary Care Provider: Care Physician,No Primary Referrals: Rob Flores MD [Med Staff - Active Staff] - Keep Luan appointment (Unless you are having more often bouts of pain, call for follow-up sooner) Care Physician,No Primary [Primary Care Provider] - Print Language: Bhutanese Disposition Disposition: Home, Self Care
[2023-12-24 02:19] LABS: Absolute Lymphocyte Count 2.01 X10^3/uL (0.83-4.51); Absolute Neutrophil Count 6.6 X10^3/uL (2.0-7.7); Basophil# 0.06 X10^3/uL; Basophil% 0.6 % (0-1); Hematocrit 38.2 % (37-47); Hemoglobin 11.7 g/dL (12.0-15.0); Lymphocyte # 2.01 X10^3/ul (0.83-4.51); Lymphocyte % 20.3 % (19-41); Mean Corp Hgb Conc 30.6 g/dL (32-36); Mean Corpuscular Hgb 25.4 pg (27.0-32.0); Monocyte# 0.89 X10^3/uL; NRBC Flagged by Analyzer 0 % (0-5); Neutrophil # 6.63 X10^3/uL (2.7-7.7); Neutrophil % 66.9 % (47-70); Platelet Count 311 K/mm3 (150-450); RBC Distribution Width CV 15.9 % (11.6-14.6); RBC Distribution Width SD 48.6 fl (35.1-43.9); White Blood Count 9.9 K/mm3 (4.4-11.0)
[2023-12-24] MEDS: Ondansetron 4 MG/2 ML Vial IV (02:19)
[2023-12-24] MEDS: Morphine 4 MG/ML Syringe IV (02:20)
[2023-12-24] MEDS: Ketorolac 30 MG/ML Syringe IV (02:20)
[2023-12-24] MEDS: 0.9% Normal Saline (500mL Bag) 500 ML 999 ML IV (02:20)
[2023-12-24 02:36] LABS: ALB/GLOB Ratio 0.8 RATIO (0.9-2.4); AST(SGOT) 13 U/L (15-37); Alanine Aminotransfer ALT/SGPT 15 U/L (13-56); Albumin, Serum 3.4 g/dL (3.2-5.0); Alkaline Phosphatase 80 U/L (45-117); Anion Gap 3 (5-15); BUN 8 mg/dL (7-18); BUN/Creat Ratio 7.5 RATIO (10-20); Chloride 106 mmol/L (98-107); Creatinine, Serum 1.06 mg/dL (0.55-1.02); EST Glomerular Filtration Rate 65 mL/min (>60); Est Glom Filt Rate - Afr Amer 78 mL/min (>60); Estimated Creatinine Clearance 115.29 ml/min; Globulin 4.1 g/dL (2.2-4.2); Glucose 112 mg/dL (74-106); Lipase 59 U/L (13-75); Potassium 3.7 mmol/L (3.5-5.1); Protein, Total 7.5 g/dL (6.4-8.2); Sodium Level 137 mmol/L (136-145)
[2023-12-24 03:15] VITALS: BP 114/59; PULSE 66; RESP 19; TEMP 36.9; O2SAT 98
== END 2023-12-24 03:18 | disposition home or self-care (01) ==
PROVIDERS: Emergency Provider Emergency Medicine; Visit Provider Emergency Medicine
DX: K80.20 Calculus of gallbladder without cholecystitis without obstruction (principal); F17.290 Nicotine dependence, other tobacco product, uncomplicated; Z79.899 Other long term (current) drug therapy
CPT/HCPCS: 80053; 83690; 85025; 96361; 96374; 96375; 99283; J7040; J2405

== ENCOUNTER 2024-11-29 00:05 | Emergency (ER) | payer MEDICAID, SELFPAY ==
[2024-11-29 00:06] VITALS: BP 125/91; PULSE 65; RESP 18; TEMP 36.6; O2SAT 100; BMI 36.3
--- OUTSIDE RECORDS SUMMARY | 2024-11-29 00:26 | XMS RPT_ITS | CCD ---
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 ASSESSMENT/PLAN: 1. Acute pain of left shoulder - ICD9: 719.41, ICD10: M25.512 - XR SHOULDER GENERAL 3V OR MORE AP/TRUE AP/OTHER LEFT -negative for fracture, dislocation, or lytic lesion. - IBUPROFEN 600 MG TABLET - CONSULT TO ORTHOPAEDICS -physically repetitive job may require further evaluation and treatment to allow return to full function. Francisco Combs MD Differential Diagnoses - Left trapezius strain, overuse syndrome is more likely for the following reason(s): Focal muscular tenderness - Radiculopathy is less likely for the following reason(s): No numbness or change in symptoms with neck position Disposition The patient was discharged. OTC Medications were advised: Procedures Allergies As of Date: 08/01/2024 (No Known Allergies) Date Reviewed: 08/01/2024 Reviewed by: Radha Chiu LPN - Fully Assessed Reason for Visit: Musculoskeletal Problem [69] Cmt: Left shoulder pain, no injury noted x 2 days LROM, states unable to lift arm above shoulder height Primary Visit Diagnosis:Acute pain of left shoulder [M25.512] Order(s):XR SHOULDER GENERAL 3V OR MORE AP/TRUE AP/OTHER LEFT [4892669] Order #: [id number] FUTURE CONSULT TO ORTHOPAEDICS [9026] Order #: [id number]: 1 FUTURE ibuprofen (MOTRIN) 600 mg tabletTake 1 tablet by mouth every 6 hours as needed for pain for up to 10 days.Disp: 30 tabletRfl: 0 Prescriptions as of 08/01/2024 - ibuprofen (MOTRIN) 600 mg tablet Take 1 tablet by mouth every 6 hours as needed for pain for up to 10 days. - QUEtiapine (SEROQUEL) 25 mg tablet Take 25 mg by mouth daily at bedtime. - sertraline HCl (SERTRALINE ORAL) Take 125 mg by mouth once daily. - ferrous sulfate (IRON) 325 mg (65 mg iron) tablet Take 325 mg by mouth daily with breakfast. Problem List As Of Date 08/01/2024 Noted Resolved Mother with Hypertrophic cardiomyopathy [I42.2] 10/28/2011 Visual changes [H53.9] 10/28/2011 02/24/2016 Chlamydia infection [A74.9] 07/15/2014 06/03/2024 Insufficient care [O09.30] 02/05/2015 05/08/2015 Class 3 severe obesity due to excess calories w*08/14/2023 Family history of hypertrophic cardiomyopathy [*08/14/2023 Gall stones [K80.20] 08/14/2023 Chest pain [R07.9] 08/14/2023 Personal history of adult physical and sexual a*03/07/2017 Iron deficiency anemia [D50.9] 11/05/2019 Nicotine dependence, other tobacco product, unc*11/13/2019 Prescriptions ordered this encounter Disp Refills Start End IBUPROFEN 600 MG TABLET 30 t* 0 08/01/2024 08/11/2024 Route: ORAL Sig: Take 1 tablet by mouth every 6 hours as needed for pain for up to 10 days. (more content not included)... Normal [facility] XR SHLDR >/=3V AP/JOSUE AP/OTH R LTon 08-01-2024 XR SHLDR >/=3V AP/JOSUE AP/OTHR LT * * *Final Report* * * DATE OF EXAM: Aug 01 2024 11:36AM WOX 5252 - XR SHLDR >/=3V AP/JOSUE AP/OTHR LT / PROCEDURE REASON: Acute pain of left shoulder * * * * Physician Interpretation * * * * EXAM TITLE: XR SHLDR >/=3V AP/JOSUE AP/OTHR LT EXAM DATE/TIME: 08/01/2024 11:36 AM COMPARISON: None. CLINICAL INDICATION/HISTORY: Acute shoulder pain. TECHNIQUE: AP, true AP and axillary views of the left shoulder are presented FINDINGS: No fractures or subluxations are noted. No bony erosions are seen. The acromioclavicular and glenohumeral joint spaces are well preserved. Normal acromiohumeral interval. The mineralization of the bones is normal. There is no significant soft tissue swelling. IMPRESSION: Negative 3 views of the left shoulder. Special Education Superintendent: [facility] Transcribe Date/Time: Aug 01 2024 11:41A Dictated by : PRISCILLA GOODRICH MD This examination was interpreted and the report reviewed and electronically signed by: PRISCILLA GOODRICH MD on Aug 01 2024 11:45AM EST [id number] Normal [facility] XR Shoulder - left 3 Viewson 08-01-2024 IMPRESSION: Negative 3 views of the left shoulder. Special Education Superintendent: [facility] Transcribe Date/Time: Aug 01 2024 11:41A Dictated by : PRISCILLA GOODRICH MD This examination was interpreted and the report reviewed and electronically signed by: PRISCILLA GOODRICH MD on Aug 01 2024 11:45AM EST DIVISION OF RADIOLOGY * * *Final Report* * * DATE OF EXAM: Aug 01 2024 11:36AM WOX 5252 - XR SHLDR >/=3V AP/JOSUE AP/OTHR LT / PROCEDURE REASON: Acute pain of left shoulder * * * * Physician Interpretation * * * * EXAM TITLE: XR SHLDR >/=3V AP/JOSUE AP/OTHR LT EXAM DATE/TIME: 08/01/2024 11:36 AM COMPARISON: None. CLINICAL INDICATION/HISTORY: Acute shoulder pain. TECHNIQUE: AP, true AP and axillary views of the left shoulder are presented FINDINGS: No fractures or subluxations are noted. No bony erosions are seen. The acromioclavicular and glenohumeral joint spaces are well preserved. Normal acromiohumeral interval. The mineralization of the bones is normal. There is no significant soft tissue swelling. DIVISION OF RADIOLOGY Provider, [facility] - 08/01/2024 * * *Final Report* * * DATE OF EXAM: Aug 01 2024 11:36AM WOX 5252 - XR SHLDR >/=3V AP/JOSUE AP/OTHR LT / PROCEDURE REASON: Acute pain of left shoulder * * * * Physician Interpretation * * * * EXAM TITLE: XR SHLDR >/=3V AP/JOSUE AP/OTHR LT EXAM DATE/TIME: 08/01/2024 11:36 AM COMPARISON: None. CLINICAL INDICATION/HISTORY: Acute shoulder pain. TECHNIQUE: AP, true AP and axillary views of the left shoulder are presented FINDINGS: No fractures or subluxations are noted. No bony erosions are seen. The acromioclavicular and glenohumeral joint spaces are well preserved. Normal acromiohumeral interval. The mineralization of the bones is normal. There is no significant soft tissue swelling. IMPRESSION IMPRESSION: Negative 3 views of the left shoulder. Special Education Superintendent: [facility] Transcribe Date/Time: Aug 01 2024 11:41A Dictated by : PRISCILLA GOODRICH MD This examination was interpreted and the report reviewed and electronically signed by: PRISCILLA GOODRICH MD on Aug 01 2024 11:45AM EST [facility] Radiology Study observation (narrative) [facility] XR Shoulder - left 3 ViewsOr dered By: [facility] Provider on 08-01-2024 [facility] CNOVon 07-08-2024 CNOV Office Visit (QUENTIN 3) -- GIOVANNYAGUEDA Kenneth ([id number]) 1995 F Date Time Provider Department 07/08/24 3:00 PM PARAMJIT ROBERTSON During your visit today, we recorded the following information about you: Pulse Respiration Blood pressure Weight 77/minute 20/minute 116/71 121.6 kg Height 1.803 m Paramjit Robertson MD 07/08/2024 4:50 PM Signed Agueda Kenneth Lewis is a 29 year old female who is here for reevaluation. We last saw her about a year ago and at that point recommended a cholecystectomy. She reported having some cardiac issues and went to see a customer solutions specialist. She represents today for reevaluation regarding cholecystectomy. She is having more frequent symptoms especially with eating fatty foods. Repeat ultrasound did reveal cholelithiasis. ALLERGIES No Known Allergies Current Outpatient Medications Medication Sig QUEtiapine (SEROQUEL) 25 mg tablet Take 25 mg by mouth daily at bedtime. sertraline HCl (SERTRALINE ORAL) Take 125 mg by mouth once daily. ferrous sulfate (IRON) 325 mg (65 mg iron) tablet Take 325 mg by mouth daily with breakfast. No current facility-administered medications for this visit. PHYSICAL EXAM: BP 116/71 Pulse 77 Resp 20 Ht 5' 11 (1.80m) Wt 268 lb (121.6kg) LMP 04/24/2024 BMI 37.39 kg/(m2). General Appearance: Well appearing, alert, in no acute distress, well-hydrated, well nourished. and Obese. Abdomen: Negative findings: no masses palpable and no organomegaly, Positive findings: tenderness moderate RUQ. 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 Calculus of gallbladder without cholecystitis without obstruction - ICD9: 574.20, ICD10: K80.20 (primary diagnosis) I recommended proceeding with a laparoscopic cholecystectomy. The procedure was reviewed in detail including the risks, benefits and complications inherent to the procedure. These include, but are not limited to, bleeding, infection, other organ injury, bile leak, bile duct injury necessitating further surgery. The patient understood and was agreeable to proceed. We will ask cardiology for risk stratification 2. 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 Tobacco use - ICD9: 305.1, ICD10: Z72.0 - Cessation encouraged. - Physiologic and physical aspects of tobacco addiction as well as strategies for quitting were discussed. - Counseling was given focusing on the harmful effects of this addiction especially given the patient's medical condition(s) which will be worsened because of the chemicals in tobacco. - Counseling was given 5 minutes. Medical Decision Making: Problems: Moderate: 1+ chronic illnesses with change Data: Unique test result(s) reviewed: 1 Risk: Moderate: Decision on elective major surgery w/o risk factors Medical Decision Making Level: 4 - Moderate Paramjit Robertson M.D., .A.C.SMarko Robertson, Paramjit Segura MD 07/08/2024 3:20 PM Signed Thank you for coming to see me today. It is my pleasure to take care of you. If you have any questions regarding your visit, please don't hesitate to contact us. Laparoscopic Cholecystectomy (Gallbladder Removal) What is a laparoscopic cholecystectomy (gallbladder removal)? A laparoscopic cholecystectomy is a surgery during which the doctor removes your gallbladder. This procedure uses several small cuts instead of one large one. A laparoscope, a narrow tube with a camera, is inserted through one incision. This allows your doctor to see your gallbladder on a screen. Your gallbladder is then removed through another small incision. When is a laparoscopic cholecystectomy used? The procedure is used when you have stones in your gallbladder. The gallbladder stores bile, a fluid made by your liver. Bile helps digest fats in the foods you eat. Gallstones can block the flow of bile in your digestive system. This blockage can cause bloating, nausea, vomiting, and pain in your abdomen, shoulder, back, or chest. Gallstones can also block the ducts that channel the bile from the liver or gallbladder to the intestine. Gallstones can cause the gallbladder to become infected. A blockage in the common bile duct can cause jaundice (yellowing of your skin or eyes) or irritate the pancreas. Gallbladder and surrounding anatomy What happens during the surgery? A general anesthetic is given to relax your muscles, prevent pain, and help you fall asleep. Your abdomen is inflated with carbon dioxide, a harmless gas (more content not included)... Normal [facility] 06-17-2024 Indication irregular menses Impression Normal appearing retroflexed uterus that measures 74 mm x 46 mm x 70 mm. Endometrium has a normal trilaminar appearance and measures 4.7 mm. Normal endometrial contour. Both ovaries are visualized and appear normal with follicular change. No adnexal masses were observed. There is free fluid visualized in the peritoneal cavity. Recommendations Follow up as clinically indicated. History General History Other: LMP-unknown Menstrual History LMP on 06/10/2024 Method Transabdominal, transvaginal, 3D ultrasound examination, Color Doppler examination. View: Adequate visualization Uterus Uterus: Visualized Uterus position: retroflexed Description of uterine malformations: none Myometrium: heterogeneous Endometrium: normal Cervix details: normal Uterus length 74 mm Uterus width 70 mm Uterus height 46 mm Uterus Vol 124.4 cm Endometrial thickness, total 4.7 mm Fibroids: No fibroids identified Polyps: No polyps identified Right Ovary Rt ovary: Visualized Rt ovary morphology: premenopausal normal follicular Rt ovary D1 26 mm Rt ovary D2 22 mm Rt ovary D3 17 mm Rt ovary Vol 5.1 cm Left Ovary Lt ovary: Visualized Lt ovary morphology: premenopausal normal follicular Lt ovary D1 27 mm Lt ovary D2 26 mm Lt ovary D3 17 mm Lt ovary Vol 6.0 cm Cul de Sac Visualized. free fluid visualized: trace Performed By: Debbie Gerardo RDMS Read By: Carey Reyes M.D. MATERNAL MEDICINE [facility] [place] 06-14-2024 Radiology Study observation (narrative) [facility] CNOVon 06-03-2024 CNOV Office Visit (OBGYWM ) -- AGUEDA LEWIS ([id number]) 1995 F Date Time Provider Department 06/03/24 3:30 PM ЕЛЕНА KIM OBGYWM During your visit today, we recorded the following information about you: Blood pressure Weight Height Last Period 122/68 121.7 kg 1.788 m 04/24/24 Елена Kim APRN.INTERNET AND E BUSINESS PROJECT MANAGER 06/03/2024 3:22 PM Signed Patient declined auto electrician. fatuma is a 29 year old who presents for an annual gynecologic exam with complaints, heavy and irregular bleeding, attempting x1 year. Age at Menarche: 10 Still get period: Yes LMP: 04/24/2024 flow lasting 4-5 with heavy flow in the middle Menses: cycles irregular x1 years. Typically every 28 days, but now she will have 2 a month or skip a month Bleeding amount bothersome: No Bleeding between periods: No Period symptoms: Breast tenderness and Cramps Sexually active: Yes Contraception: None Contraception frequency: Never HPV vaccine: No HPV:unknown Last pap smear: unknown Pt reported History of abnormal pap: No Pt reported Colposcopy: No. Leep: No. Cone biopsy: No. Bothersome pelvic pain: No Last mammogram: never OB History T2 L2 SAB0 IAB0 Ectopic0 Multiple0 Live Births2 Caul Dresser History LMP: 04/24/2024 (Exact Date), Having periods Age at Menarche: Age at First : Age at Menopause: Caul Dresser History Comments: Sexual Activity: Yes; Male Contraception: Not used PAST MEDICAL HISTORY Diagnosis Date Anemia Chest pain Chlamydia infection 07/15/2014 Cholelithiasis Depression GERD (gastroesophageal reflux disease) PMH - PAST MEDICAL HISTORY OF 12/18/2003 normal color vision PMH - PAST MEDICAL HISTORY OF age 4 fracture right elbow PMH - PAST MEDICAL HISTORY OF age 4 fracture right wrist PMH - PAST MEDICAL HISTORY OF bronchial infection Trichomonal infection 03/22/2015 PAST SURGICAL HISTORY Procedure Laterality Date ADENOIDECTOMY PRIMARY PAST SURGICAL HISTORY OF root canal FAMILY HISTORY Problem Relation Age of Onset Diabetes Maternal Grandmother other (sleep apnea) Maternal Grandmother Asthma Father Heart Mother hypertrophic cardiomyopathy SOCIAL HISTORY Social History Tobacco Use Smoking status: Never Smokeless tobacco: Never Tobacco comments: vapes without nicotine Vaping Use Vaping status: current everyday user Substances: Flavoring Devices: RefREGEN Energyble tank Substance Use Topics Alcohol use: No Drug use: No REVIEW OF SYSTEMS Abdomen: No abdominal pain, nausea, vomiting, diarrhea, or constipation. No bloating, early satiety, indigestion, or increased flatulence. Bladder: No dysuria, gross hematuria, urinary frequency, urinary urgency, or incontinence. Breast: No breast lumps, nipple d/c, overlying skin changes, redness or skin retraction. Allergies and current medication updated:Yes SENSITIVE EXAM: The sensitive examination was discussed with the Patient or Patient's Authorized Computer System Specialist. As applicable, any other physician, advance practice provider, medical student, or other health professional student that will be observing or involved in the sensitive examination for educational or training purposes was discussed with the Patient or Authorized Computer System Specialist. The Patient or Authorized Computer System Specialist has agreed to proceed with the sensitive examination. (Sensitive examination includes inspection and/or palpation of the breasts, pelvis, prostate and anorectal regions). EXAM: BP 122/68 Ht 5' 10.394 (1.79m) Wt 268 lb 3.2 oz (121.7kg) LMP 04/24/2024 BMI 38.05 kg/(m2). GENERAL: pleasant, female in no apparent distress HEENT: Normocephalic, atraumatic, mucus membranes moist, and no lesions DERMATOLOGY: Normal, without lesions, non-icteric, and non-hirsute BREAST: soft, non-tender, symmetric, no dominant mass, normal nipple-areolar complex, no lymphadenopathy, and no nipple discharge CHEST: Normal inspiratory effort ABDOMEN: soft, non-tender, and no masses PELVIC: external genitalia normal, normal Bartholin's glands, urethra, Welch's glands, no vulvar lesions, no cervical lesions, good vaginal support, physiologic discharge present, normal appearing perineal body and perianal region BIMANUAL: uterus normal size, shape and consistency, no adnexal masses, and non-tender RECTOVAGINAL: deferred. NEURO: alert and oriented x3,exam grossly non-focal EXTREMITIES: normal ASSESSMENT/PLAN: 1) Health maintenance: Pap done with HPV. Mammogram starting age 40. Nutrition, exercise and routine health maintenance exams reviewed. Calcium/Vitamin D supplementation information provided. Colon cancer screening: start at age 45 2) Contraception: none. Contraceptive options reviewed and information provided. 3) STD screening: Declined STD check. 4) Follow up one year or sooner as needed 5) PCOS panel (more content not included)... Normal [facility] DHEA-S BLDon 06-03-2024 DHEA-S [Mass/Vol] 183.5 ug/dL Normal 98.8-340.0 [facility] Comment on above: Order Comment: Speci men Type: FLUID SPECIMEN Ordering Facility: [facility] Address: [address] [place] [address] Result Comment: Refe rence ranges are age and gender specific. For additional information, reference range tables can be found in the laboratory test directory. The normal values are based on the following source: Dehydroepiandrosterone sulfate (DHEA S) [package insert V 17.0 Uzbek]. [email or web address] [place], [place]: December 2012. Performed By: #### L [id number] #### [facility] CLIA [id number] [address] [place] [address] [place] Estradiol SerPl-mCncon 06-03 E2 [Mass/Vol] 101 pg/mL Normal [facility] Comment on above: Order Comment: Speci men Type: FLUID SPECIMEN Ordering Facility: [facility] Address: [address] [place] [address] Result Comment: This test is not suitable for patients receiving treatment with the drug Fulvestrant (Faslodex). The drug causes an interference leading to falsely elevated estradiol results. Menstrual cycle Estradiol reference ranges: Follicular : < 234 pg/mL Ovulation : 41 to 398 pg/mL Luteal : < 342 pg/mL Estradiol reference ranges vary by gestational period: First trimester : 154 to 3243 pg/mL Second trimester : 1561 to 55344 pg/mL Third trimester : 8285 to >27500 pg/mL Post-menopausal Estradiol reference range: < 41 pg/mL Reference: 1. Estradiol - E2 (Estradiol III) [package insert V 3.0 [place]bek]. [email or web address] [place], [place], October 2015. Performed By: #### L [id number] #### [facility] CLIA [id number] [address] [place] [address] [place] FSH SerPl-aCncon 06-03-2024 Follitropin Qn 3.9 m[IU]/mL Normal See comment [facility] Comment on above: Order Comment: Speci men Type: BLOOD SPECIMENOrdering Facility: [facility] Address: [address] [place] [address] Result Comment: Refe rence range: Follicular: 3.5-12.5 mIU/mL Ovulation: 4.7-21.5 mIU/mL Luteal: 1.7-7.7 mIU/mL Postmenopausal: 25.8-134.8 mIU/mL Performed By: #### 1 5067-2, 69920-9, 2243-4, DHEAS ####[facility] [id number] [place] [address] [place] HIGH RISK HUMAN PAPILLOMA WILBUR (HPV), PCR FOR DETECTION AND GENOTYPINGon 06-03-2024 HPV 16 Ag Ql (Unsp spec) Not detected Normal Not detected [facility] Comment on above: Order Comment: Speci men Type: FLUID SPECIMEN Ordering Facility: [facility] Address: [address] [place] [address] Performed By: #### L [id number] #### [facility] CLIA [id number] [address] [place] [address] [place] HPV 18 Ag Ql (Unsp spec) Not detected Normal Not detected [facility] Comment on above: Order Comment: Speci men Type: FLUID SPECIMEN Ordering Facility: [facility] Address: [address] [place] [address] Performed By: #### L [id number] #### [facility] CLIA [id number] [address] [place] [address] [place] HPV 31+33+35+39+45+51+52 +56+58+59+66+68 DNA ELHAM+probe Ql (Cvx) Not detected Normal Not detected [facility] Comment on above: Order Comment: Speci men Type: FLUID SPECIMEN Ordering Facility: [facility] Address: [address] [place] [address] Result Comment: High Risk HPV Other Type includes HPV types 31, 33, 35, 39, 45, 51, 52, 56, 58, 59, 66 and 68. Performed By: #### L [id number] #### [facility] CLIA [id number] [address] [place] [address] [place] HYDROXYPROGESTERONE-17on 17-HYDROXYPROGESTERO NE QUANTITATIVE BY HPLC-MS/MS, SERUM OR PLASMA 129.60 ng/dL Normal <=206.[address] [facility] Comment on above: Order Comment: Vanessa echavarria Type: FLUID SPECIMEN Ordering Facility: [facility] Address: [address] [place] [address] Result Comment: INTERPRETIVE INFORMATION for 17-Hydroxyprogesterone in females: Follicular 15 to 70 ng/dL Luteal 35 to 290 ng/dL REFERENCE INTERVAL: 17-Hydroxyprogesterone Qnt, HPLC-MS/MS Access complete set of age- and/or gender-specific reference intervals for this test in the [facility] Test Directory ([employer]). This test was developed and its performance characteristics determined by [facility]. It has not been cleared or approved by the [place] Food and Drug Administration. This test was performed in a CLIA certified laboratory and is intended for clinical purposes. Performed By: [facility] [address] [place] [address] Inspector Process: Victor M Zapata MD, PhD CLIA Number: [id number] Performed By: #### L [id number] #### [facility] CLIA [id number] [address] [place] [address] [place] HbA1c (Bld)on 06-03-2024 Average glucose Estimated from glycated hemoglobin (Bld) [Mass/Vol] 108 mg/dL Normal [facility] Comment on above: Order Comment: Vanessa echavarria Type: BLOOD SPECIMEN Ordering Facility: [facility] Address: [address] [place] [address] Result Comment: eAG: (Estimated average glucose) is a calculated value from HgbA1c and is bank representative of the average blood glucose level in the last 2-3 month period. Performed By: #### 5 5454-3 #### [facility] CLIA [id number] [address] [place] [address] [place] HbA1c (Bld) [Mass fraction] 5.4 % Normal 4.3-5.[address] [facility] Comment on above: Order Comment: Vanessa echavarria Type: BLOOD SPECIMEN Ordering Facility: [facility] Address: [address] [place] [address] Result Comment: [place] Diabetes Association guidelines indicate that patients with HgbA1c in the range 5.7-6.4% are at increased risk for development of diabetes, and intervention by lifestyle modification may be beneficial. HgbA1c greater or equal to 6.5% is considered diagnostic of diabetes. Performed By: #### 5 5454-3 #### [facility] CLIA [id number] [address] [place] [address] [place] LH SerPl-aCncon 06-03-2024 Lutropin Qn 8.2 m[IU]/mL Normal See comment [facility] Comment on above: Order Comment: Speci men Type: BLOOD SPECIMENOrdering Facility: [facility] Address: [address] [place] [address] Result Comment: Refe rence range: Follicular: 2.4-12.6 mIU/mL Midcycle: 14.0-95.6 mIU/mL Luteal: 1.0-11.4 mIU/mL [place]: 7.7-58.5 mIU/mL Performed By: #### 1 5067-2, 68458-4, 2243-4, DHEAS ####[facility] [id number] [place] [address] [place] PAP TESTon 06-03-2024 ADEQUACY Satisfactory for interpretation. Normal [facility] Comment on above: Order Comment: Speci men Type: FLUID SPECIMEN Ordering Facility: [facility] Address: [address] [place] [address] Performed By: #### L [id number] #### [facility] CLIA [id number] [address] [place] [address] [place] CASE REPORT Normal [facility] Comment on above: Order Comment: Speci men Type: FLUID SPECIMEN Ordering Facility: [facility] Address: [address] [place] [address] Result Comment: Gyne cologic Cytology Report Case: [id number] Authorizing Provider: Елена Kim APRN.INTERNET AND E BUSINESS PROJECT MANAGER Collected: 06/03/2024 03:14 PM Ordering Location: OB/Gynecology Received: 06/03/2024 04:33 PM First Screen: Natalie, Reva, CT, ASCP Specimen: Pap Test, ThinPrep, Cervix Performed By: #### L [id number] #### [facility] CLIA [id number] [address] [place] [address] [place] CLINICAL HISTORY, CYTOLOGY, ACCREDITED LEGAL SECRETARY Routine Exam Normal [facility] Comment on above: Order Comment: Speci men Type: FLUID SPECIMEN Ordering Facility: [facility] Address: [address] [place] [address] Performed By: #### L [id number] #### [facility] CLIA [id number] [address] [place] [address] [place] CYTOLOGY PAP OTHER INTERPRETATION Trichomonas vaginalis. Normal [facility] Comment on above: Order Comment: Speci men Type: FLUID SPECIMEN Ordering Facility: [facility] Address: [address] [place] [address] Performed By: #### L [id number] #### [facility] CLIA [id number] [address] [place] [address] [place] FINAL PERFORMING LAB Normal [facility] Comment on above: Order Comment: Speci men Type: FLUID SPECIMEN Ordering Facility: [facility] Address: [address] [place] [address] Result Comment: Tech nical component, corporate safety manager screening performed at [facility], [address] [place], [place] [id number] CLIA# [id number] Diagnostic interpretation performed at [facility], [address] [place], [place] [id number] CLIA# [id number] Inspector Process: Jose Perrin M.D. Performed By: #### L [id number] #### [facility] CLIA [id number] [address] [place] [address] [place] INTERPRETATION, CYTOLOGY, ACCREDITED LEGAL SECRETARY Normal [facility] Comment on above: Order Comment: Speci men Type: FLUID SPECIMEN Ordering Facility: [facility] Address: [address] [place] [address] Result Comment: Nega tive for intraepithelial lesion or malignancy. Performed By: #### L [id number] #### [facility] CLIA [id number] [address] [place] [address] [place] LMP 04/24/[address] [facility] Comment on above: Order Comment: Speci men Type: FLUID SPECIMEN Ordering Facility: [facility] Address: [address] [place] [address] Performed By: #### L [id number] #### [facility] CLIA [id number] [address] [place] [address] [place] PAP DISCLAIMER COMMENT The Pap Smear is a screening test for cervical cancer. False negative results occur with all screening tests, emphasizing the need for rescreening at recommended intervals, and clinical correlation. Normal [facility] Comment on above: Order Comment: Speci men Type: FLUID SPECIMEN Ordering Facility: [facility] Address: [address] [place] [address] Performed By: #### L [id number] #### [facility] CLIA [id number] [address] [place] [address] [place] PAP ANIMAL ANATOMIST COMMENT This specimen has be en analyzed by the ThinPrep Imaging System, an automated imaging and review system, which assists the laboratory in evaluating cells on ThinPrep Pap tests. Following automated imaging, selected muller from every slide are reviewed by a corporate safety manager. Normal [facility] Comment on above: Order Comment: Speci men Type: FLUID SPECIMEN Ordering Facility: [facility] Address: [address] [place] [address] Performed By: #### L [id number] #### [facility] CLIA [id number] [address] [place] [address] [place] [facility] Prolactin [Mass/Vol] 11.7 ng/mL Normal 4.4-33.8 [facility] Comment on above: Order Comment: Speci men Type: FLUID SPECIMEN Ordering Facility: [facility] Address: [address] [place] [address] Result Comment: Prol actin test is performed using the [employer] Electrochemiluminescence Immunoassay method. Results obtained with different methods or kits cannot be used interchangeably. Performed By: #### L [id number] #### [facility] CLIA [id number] [address] [place] [address] [place] TESTOSTERONE, FREE AND TOTAL , BY EQUILIBRIUM ULTRAFILTRATION MASS SPECTROMETRYon 06-03-2024 Testosterone [Mass/Vol] 31.4 ng/dL Normal 10.0-55.[address] [facility] Comment on above: Order Comment: Speci men Type: FLUID SPECIMEN Ordering Facility: [facility] Address: [address] [place] [address] Performed By: #### L [id number] #### [facility] CLIA [id number] [address] [place] [address] [place] Testosterone Free [Mass/Vol] 0.53 ng/dL Normal 0.10-0.[address] [facility] Comment on above: Order Comment: Speci men Type: FLUID SPECIMEN Ordering Facility: [facility] Address: [address] [place] [address] Performed By: #### L [id number] #### [facility] CLIA [id number] [address] [place] [address] [place] Testosterone Free/Testosterone.to álvaro [Mass fraction] 1.69 % Normal 0.50-2.[address] [facility] Comment on above: Order Comment: Speci men Type: FLUID SPECIMEN Ordering Facility: [facility] Address: [address] [place] [address] Performed By: #### L [id number] #### [facility] CLIA [id number] [address] [place] [address] [place] TSH SerPl-aCncon 06-03-2024 TSH Qn 1.030 m[IU]/L Normal 0.270-4.[address] [facility] Comment on above: Order Comment: Speci men Type: FLUID SPECIMEN Ordering Facility: [facility] Address: [address] [place] [address] [place] [address] Result Comment: If t he patient is , TSH reference range varies by gestational period: First Trimester (weeks 9-12): 0.180-2.990 mIU/L Second Trimester: 0.110-3.980 mIU/L Third Trimester: 0.480-4.710 mIU/L Lonnie Wynn et al. A Practical Approach for the Verifications and Determination of Site- and Trimester-Specific Reference Intervals for Thyroid Function tests in . Thyroid, 2019:29:3:412-420. Gee Zapata, et al. 2017 Guidelines of the [place] Thyroid Association for the Diagnosis and Management of Thyroid Disease during and the . Thyroid, 2017:27:3:315-389. Performed By: #### L [id number] #### [facility] CLIA [id number] [address] [place], [place] [address] [address] [facility] Darlyn 04-25-2024 CNPN Telephone (BluwanARK) -- AGUEDA LEWIS ([id number]) 1995 F Date Time Provider Department 04/25/24 ORESTES HEATH During your visit today, we recorded the following information about you: Christine Lemon LPN 04/25/2024 7:04 AM Signed ----- Message from Orestes Heath MD sent at 04/24/2024 9:35 PM EST ----- Normal left ventricular size, with mild left ventricular hypertrophy. The LV ejection fraction is 69%. Normal diastolic function. Normal right ventricular size, systolic function, without significant valvular abnormalities. No significant suggestion of hypertrophic obstructive cardiomyopathy on this echo. Christine Lemon LPN 04/25/2024 9:08 AM Signed I spoke to Agueda Lewis and informed them of 's response to Echo results and recommendations. Patient voiced understanding. Christine Lemon LPN Allergies As of Date: 04/25/2024 (No Known Allergies) Date Reviewed: 04/03/2024 Reviewed by: Mindy Victoria RN - Fully Assessed Reason for Visit: Results [95] Cmt: Echo Prescriptions as of 04/25/2024 - sertraline HCl (SERTRALINE ORAL) Take 125 mg by mouth once daily. - pantoprazole DR (PROTONIX) 40 mg tablet Take 1 tablet by mouth once daily. - trazodone HCl (TRAZODONE ORAL) Take by mouth. - escitalopram oxalate (LEXAPRO) 10 mg tablet Take 10 mg by mouth once daily. - albuterol HFA (VENTOLIN HFA) 90 mcg/actuation inhaler Inhale 2 Puffs as instructed every 4 hours as needed for wheezing/shortness of breath. - ferrous sulfate (IRON) 325 mg (65 mg iron) tablet Take 325 mg by mouth daily with breakfast. Problem List As Of Date 04/25/2024 Noted Resolved Mother with Hypertrophic cardiomyopathy [I42.2] 10/28/2011 Visual changes [H53.9] 10/28/2011 02/24/2016 Chlamydia infection [A74.9] 07/15/2014 Insufficient care [O09.30] 02/05/2015 05/08/2015 Class 3 severe obesity due to excess calories w*08/14/2023 Family history of hypertrophic cardiomyopathy [*08/14/2023 Gall stones [K80.20] 08/14/2023 Chest pain [R07.9] 08/14/2023 Encounter Status:Closed by CHRISTINE LEMON on 04/25/24 [facility] ECHOon 04-23-2024 CONCLUSIONS: - Technically difficult exam due to body habitus and respitory interference. - Exam indication: Family History of HOCM - The left ventricle is normal in size. There is mild left ventricular hypertrophy. Left ventricular systolic function is normal. EF = 69 5% (2D biplane) Normal left ventricular diastolic function. - The right ventricle is normal in size. Right ventricular systolic function is normal. - There are no significant valvular abnormalities. - No cchocardiographic findings that indicate HOCM. - Exam was compared with the prior echocardiographic exam performed on 09/24/2013. (Darcy). There is no significant change. * * * Final * * * [facility] Ech[facility] Report: Transthoracic Echo [facility] Date of service: 04/23/2024 12:42:52 [facility] Ordering physician: ORESTES HEATH Indication: Family History of HOCM Technologist: Sherif Groves Interpreting physician: Gallo Smallwood MD PATIENT: Name: MISS AGUEDA LEWIS : 1995 Age: 29 years Gender: F Primary rhythm: sinus. Height: 185.40 cm BSA: 2.58 m Weight: 129.28 kg BMI: 37.6 kg/m Heart rate 85 bpm Blood pressure 123/77 mmHg Technically difficult exam due to body habitus and respitory interference. Color Doppler was utilized to interrogate the cardiac valves assessed and spectral Doppler was utilized to determine the flow velocities and pressure gradients reported in this exam. MEASUREMENTS: Value Indexed Normal Max aortic dimension 3.1 cm Ao < 3.8 Left atrial volume 62 ml (biplane A-L) 24 ml/m Antwon <= 34 LV ID (diastole) 4.1 cm (2D) 1.57 cm/m LV ID (systole) 2.7 cm (2D) 1.05 cm/m IVS, leaflet tips 1.1 cm (2D) Posterior wall thickness 1.0 cm (2D) Left ventricular mass 133 g (2D) 52 g/m LV stroke volume 81 ml (2D biplane) LV end diastolic volume 117 ml (2D biplane) 45.3 ml/m 29<=EDVi<62 LV end systolic volume 36 ml (2D biplane) 13.8 ml/m Ejection Fraction 69 % (2D biplane) EF > 54 FINDINGS: LEFT VENTRICLE The left ventricle is normal in size. There is mild left ventricular hypertrophy. Left ventricular systolic function is normal globally. Normal left ventricular diastolic function. Mitral annular lateral E/e': 4.4. Mitral annular septal E/e': 6.0. Wall Motion: All scored segments are normal. RIGHT VENTRICLE The right ventricle is normal in size. Right ventricular systolic function is normal. RV systolic tissue Doppler velocity is 15.0 cm/s. Tricuspid annular displacement is 2.1 cm. Estimated right ventricular systolic pressure is not reported due to an insufficient tricuspid regurgitation signal. Estimated right atrial pressure is not included as the IVC was not seen. LEFT ATRIUM The left atrial cavity is normal in size. RIGHT ATRIUM The right atrial cavity is normal in size. MITRAL VALVE The mitral valve leaflets are structurally normal. There is no mitral valve regurgitation. The pressure half time is 65 msec. The peak mitral E/A ratio is 1.30. The average mitral E/e' ratio is 5.2. The mitral flow deceleration time is 225 msec. TRICUSPID VALVE The tricuspid valve leaflets are structurally normal. There is trace tricuspid valve regurgitation. AORTIC VALVE The aortic valve cusps are structurally normal. There is no aortic valve regurgitation. Tricuspid aortic valve. PULMONIC VALVE The pulmonic valve cusps are structurally normal. There is trace pulmonic valve regurgitation. AORTA The visualized aorta is normal in size. Measurements - Sinus: 3.1 cm. Mid ascending aorta 2.7 cm. PULMONARY ARTERIES The pulmonary arteries are unseen or not interrogated. INTERATRIAL SEPTUM There is no evidence of intracardiac shunting as detected by Doppler. INTERVENTRICULAR SEPTUM The interventricular septum is normal. PERICARDIUM There is no pericardial effusion. [facility] Echocardiography Echocardiography Rep ort: Transthoracic Echo [facility] Date of service: 04/23/2024 12:42:52 [facility] Ordering physician: ORESTES HEATH Indication: Family History of HOCM Technologist: Sherif Groves Interpreting physician: Gallo Smallwood MD PATIENT: Name: MISS AGUEDA LEWIS : 1995 Age: 29 years Gender: F Primary rhythm: sinus. Height: 185.40 cm BSA: 2.58 m Weight: 129.28 kg BMI: 37.6 kg/m Heart rate 85 bpm Blood pressure 123/77 mmHg Technically difficult exam due to body habitus and respitory interference. Color Doppler was utilized to interrogate the cardiac valves assessed and spectral Doppler was utilized to determine the flow velocities and pressure gradients reported in this exam. MEASUREMENTS: Value Indexed Normal Max aortic dimension 3.1 cm Ao < 3.8 Left atrial volume 62 ml (biplane A-L) 24 ml/m Antwon <= 34 LV ID (diastole) 4.1 cm (2D) 1.57 cm/m LV ID (systole) 2.7 cm (2D) 1.05 cm/m IVS, leaflet tips 1.1 cm (2D) Posterior wall thickness 1.0 cm (2D) Left ventricular mass 133 g (2D) 52 g/m LV stroke volume 81 ml (2D biplane) LV end diastolic volume 117 ml (2D biplane) 45.3 ml/m 29<=EDVi<62 LV end systolic volume 36 ml (2D biplane) 13.8 ml/m Ejection Fraction 69 % (2D biplane) EF > 54 FINDINGS: LEFT VENTRICLE The left ventricle is normal in size. There is mild left ventricular hypertrophy. Left ventricular systolic function is normal globally. Normal left ventricular diastolic function. Mitral annular lateral E/e': 4.4. Mitral annular septal E/e': 6.0. Wall Motion: All scored segments are normal. RIGHT VENTRICLE The right ventricle is normal in size. Right ventricular systolic function is normal. RV systolic tissue Doppler velocity is 15.0 cm/s. Tricuspid annular displacement is 2.1 cm. Estimated right ventricular systolic pressure is not reported due to an insufficient tricuspid regurgitation signal. Estimated right atrial pressure is not included as the IVC was not seen. LEFT ATRIUM The left atrial cavity is normal in size. RIGHT ATRIUM The right atrial cavity is normal in size. MITRAL VALVE The mitral valve leaflets are structurally normal. There is no mitral valve regurgitation. The pressure half time is 65 msec. The peak mitral E/A ratio is 1.30. The average mitral E/e' ratio is 5.2. The mitral flow deceleration time is 225 msec. TRICUSPID VALVE The tricuspid valve leaflets are structurally normal. There is trace tricuspid valve regurgitation. AORTIC VALVE The aortic valve cusps are structurally normal. There is no aortic valve regurgitation. Tricuspid aortic valve. PULMONIC VALVE The pulmonic valve cusps are structurally normal. There is trace pulmonic valve regurgitation. AORTA The visualized aorta is normal in size. Measurements - Sinus: 3.1 cm. Mid ascending aorta 2.7 cm. PULMONARY ARTERIES The pulmonary arteries are unseen or not interrogated. INTERATRIAL SEPTUM There is no evidence of intracardiac shunting as detected by Doppler. INTERVENTRICULAR SEPTUM The interventricular septum is normal. PERICARDIUM There is no pericardial effusion. CONCLUSIONS: - Technically difficult exam due to body habitus and respitory interference. - Exam indication: Family History of HOCM - The left ventricle is normal in size. There is mild left ventricular hypertrophy. Left ventricular systolic function is normal. EF = 69 5% (2D biplane) Normal left ventricular diastolic function. - The right ventricle is normal in size. Right ventricular systolic function is normal. - There are no significant valvular abnormalities. - No cchocardiographic findings that indicate HOCM. - Exam was compared with the prior echocardiographic exam performed on 09/24/2013. (Darcy). There is no significant change. * * * Final * * * [facility] [employer] : [id number] Normal [facility] Progress Noteon 04-04-2024 Progress Note Chart reviewed of ED follow up Seen in [facility] ED on 04/03/24 Reason: Chest pain Discharge instructions: Follow up with your primary care physician Attempted to call patient. Message said number is not available. No voice mail option. ED message and education sent via [employer] Basic metabolic 2000 panelon 04-03-2024 Anion gap [Moles/Vol] 8 mmol/L Normal 8-15 [facility] Comment on above: Order Comment: Vanessa echavarria Type: BLOOD SPECIMENOrdering Facility: [facility] Address: [address] [place] [address] Performed By: #### 1 9123-9, 52088-1 ####[facility] LABORATORYCLIA [id number] [place] [address] [place] Calcium [Mass/Vol] 9.5 mg/dL Normal 8.5-10.2 [facility] Comment on above: Order Comment: Vanessa echavarria Type: BLOOD SPECIMENOrdering Facility: [facility] Address: [address] [place] [address] Performed By: #### 1 9123-9, 52576-8 ####[facility] LABORATORYCLIA [id number] [address] [place] Chloride [Moles/Vol] 103 mmol/L Normal 98-107 [facility] Comment on above: Order Comment: Speci men Type: BLOOD SPECIMENOrdering Facility: [facility] Address: [address] [place] [address] Performed By: #### 1 9123-9, 25764-1 ####[facility] LABORATORYCLIA [id number] [address] [place] CO2 [Moles/Vol] 25 mmol/L Normal 22-30 [facility] Comment on above: Order Comment: Speci men Type: BLOOD SPECIMENOrdering Facility: [facility] Address: [address] [place] [address] Performed By: #### 1 9123-9, 11116-4 ####[facility] LABORATORYCLIA [id number] [address] [place] Creatinine [Mass/Vol] 0.94 mg/dL Normal 0.58-0.96 [facility] Comment on above: Order Comment: Speci men Type: BLOOD SPECIMENOrdering Facility: [facility] Address: [address] [place] [address] Performed By: #### 1 9123-9, 34436-8 ####[facility] LABORATORYCLIA [id number] [address] Creatinine and Glomerular filtration rate.predicted panel (S/P/Bld) 84 mL/min/1.73m??? Normal >=60 [facility] Comment on above: Order Comment: Speci men Type: BLOOD SPECIMENOrdering Facility: [facility] Address: [address] [place] [address] Result Comment: Makayla mated Glomerular Filtration Rate (eGFR) is calculated using the 2020 CKD-EPI creatinine equation. This equation utilizes serum creatinine, sex, and age as parameters. The creatinine assay has traceable calibration to isotope dilution-mass spectrometry. Refer to KDIGO guidelines for clinical interpretation. In patients with unstable renal function, e.g. those with acute kidney injury, the eGFR may not accurately reflect actual GFR. Performed By: #### 1 9123-9, 05968-9 ####[facility] LABORATORYCLIA [id number] [place] [address] [place] Glucose [Mass/Vol] 107 mg/dL High 74-99 [facility] Comment on above: Order Comment: Vanessa echavarria Type: BLOOD SPECIMENOrdering Facility: [facility] Address: [address] [place] [address] Result Comment: The [place] Diabetes Association (ADA) provides guidance for cutoff values for fasting glucose and random glucose. The ADA defines fasting as no caloric intake for at least 8 hours. Fasting plasma glucose results between 100 to 125 mg/dL indicate increased risk for diabetes (prediabetes). Fasting plasma glucose results greater than or equal to 126 mg/dL meet the criteria for diagnosis of diabetes. In the absence of unequivocal hyperglycemia, results should be confirmed by repeat testing. In a patient with classic symptoms of hyperglycemia or hyperglycemic crisis, random plasma glucose results greater than or equal to 200 mg/dL meet the criteria for diagnosis of diabetes. Reference: Standards of Medical Care in Diabetes 2016, [place] Diabetes Association. Diabetes Care. 2016.39(Suppl 1). Performed By: #### 1 9123-9, 44514-0 ####[facility] LABORATORYCLIA [id number] [place] [address] [place] Potassium [Moles/Vol] 4.4 mmol/L Normal 3.7-5.1 [facility] Comment on above: Order Comment: Vanessa echavarria Type: BLOOD SPECIMENOrdering Facility: [facility] Address: [address] [place] [address] Performed By: #### 1 9123-9, 19787-9 ####[facility]ORATORYCLIA [id number] [place] [address] [place] Sodium [Moles/Vol] 136 mmol/L Normal 136-144 [facility] Comment on above: Order Comment: Vanessa echavarria Type: BLOOD SPECIMENOrdering Facility: [facility] Address: [address] [place] [address] Performed By: #### 1 9123-9, 54532-5 ####[facility] LABORATORYCLIA [id number] [address] STATES [facility] Urea nitrogen [Mass/Vol] 9 mg/dL Normal 7- [facility] Comment on above: Order Comment: Speci men Type: BLOOD SPECIMENOrdering Facility: [facility] Address: [address] [place] [address] Performed By: #### 1 9123-9, 48047-3 ####[facility] LABORATORYCLIA [id number] [address] CBC W Auto Differential pane l (Bld)on 04-03-2024 Basophils (Bld) [#/Vol] 0.04 10*3/uL Normal <0.11 [facility] Comment on above: Order Comment: Speci men Type: BLOOD SPECIMENOrdering Facility: [facility] Address: [address] [place] [address] Performed By: #### 5 7021-8 ####[facility]ORATORYCLIA [id number] [address] Basophils/100 WBC (Bld) 0.5 % Normal [facility] Comment on above: Order Comment: Speci men Type: BLOOD SPECIMENOrdering Facility: [facility] Address: [address] [place] [address] Performed By: #### 5 7021-8 ####[facility] LABORATORYCLIA [id number] [address] Differential cell count method Nom (Bld) Auto Normal [facility] Comment on above: Order Comment: Speci men Type: BLOOD SPECIMENOrdering Facility: [facility] Address: [address] [place] [address] Performed By: #### 5 7021-8 ####[facility] LABORATORYCLIA [id number] [address] [place] Eosinophils (Bld) [#/Vol] 0.07 10*3/uL Normal <0.46 [facility] Comment on above: Order Comment: Speci men Type: BLOOD SPECIMENOrdering Facility: [facility] Address: [address] [place] [address] Performed By: #### 5 7021-8 ####[facility] LABORATORYCLIA [id number] [address] [place] Eosinophils/100 WBC (Bld) 0.9 % Normal [facility] Comment on above: Order Comment: Speci men Type: BLOOD SPECIMENOrdering Facility: [facility] Address: [address] [place] [address] Performed By: #### 5 7021-8 ####[facility] LABORATORYCLIA [id number] [address] [place] Erythrocyte distribution width (RBC) [Ratio] 13.7 % Normal 11.5-15.0 [facility] Comment on above: Order Comment: Speci men Type: BLOOD SPECIMENOrdering Facility: [facility] Address: [address] [place] [address] Performed By: #### 5 7021-8 ####[facility] LABORATORYCLIA [id number] [address] [place] Hematocrit (Bld) [Volume fraction] 37.4 % Normal 36.0-46.0 [facility] Comment on above: Order Comment: Speci men Type: BLOOD SPECIMENOrdering Facility: [facility] Address: [address] [place] [address] Performed By: #### 5 7021-8 ####[facility]ATORYCLIA [id number] [address] [place] Hemoglobin (Bld) [Mass/Vol] 11.7 g/dL Normal 11.5-15.5 [facility] Comment on above: Order Comment: Speci men Type: BLOOD SPECIMENOrdering Facility: [facility] Address: [address] [place] [address] Performed By: #### 5 7021-8 ####[facility]ORATORYCLIA [id number] [address] OF [facility] Immature granulocytes (Bld) [#/Vol] 0.04 10*3/uL Normal <0.10 [facility] Comment on above: Order Comment: Speci men Type: BLOOD SPECIMENOrdering Facility: [facility] Address: [address] [place] [address] Performed By: #### 5 7021-8 ####[facility] LABORATORYCLIA [id number] [address] Immature granulocytes/100 WBC (Bld) 0.5 % Normal [facility] Comment on above: Order Comment: Speci men Type: BLOOD SPECIMENOrdering Facility: [facility] Address: [address] [place] [address] Performed By: #### 5 7021-8 ####[facility] LABORATORYCLIA [id number] [address] [place] Lymphocytes (Bld) [#/Vol] 1.14 10*3/uL Normal 1.00-4.00 [facility] Comment on above: Order Comment: Speci men Type: BLOOD SPECIMENOrdering Facility: [facility] Address: [address] [place] [address] Performed By: #### 5 7021-8 ####[facility] LABORATORYCLIA [id number] [address] Lymphocytes/100 WBC (Bld) 14.0 % Normal [facility] Comment on above: Order Comment: Speci men Type: BLOOD SPECIMENOrdering Facility: [facility] Address: [address] [place] [address] Performed By: #### 5 7021-8 ####[facility] LABORATORYCLIA [id number] [address] [place] MCH (RBC) [Entitic mass] 26.5 pg Normal 26.0-34.0 [facility] Comment on above: Order Comment: Speci men Type: BLOOD SPECIMENOrdering Facility: [facility] Address: [address] [place] [address] Performed By: #### 5 7021-8 ####[facility] LABORATORYCLIA [id number] [address] [place] MCHC (RBC) [Mass/Vol] 31.3 g/dL Normal 30.5-36.0 [facility] Comment on above: Order Comment: Speci men Type: BLOOD SPECIMENOrdering Facility: [facility] Address: [address] [place] [address] Performed By: #### 5 7021-8 ####[facility] LABORATORYCLIA [id number] [address] [place] MCV (RBC) [Entitic vol] 84.8 fL Normal 80.0-100.0 [facility] Comment on above: Order Comment: Speci men Type: BLOOD SPECIMENOrdering Facility: [facility] Address: [address] [place] [address] Performed By: #### 5 7021-8 ####[facility] LABORATORYCLIA [id number] [address] [place] Monocytes (Bld) [#/Vol] 0.55 10*3/uL Normal <0.87 [facility] Comment on above: Order Comment: Speci men Type: BLOOD SPECIMENOrdering Facility: [facility] Address: [address] [place] [address] Performed By: #### 5 7021-8 ####[facility] LABORATORYCLIA [id number] [address] [place] Monocytes/100 WBC (Bld) 6.8 % Normal [facility] Comment on above: Order Comment: Speci men Type: BLOOD SPECIMENOrdering Facility: [facility] Address: [address] [place] [address] Performed By: #### 5 7021-8 ####[facility] LABORATORYCLIA [id number] [address] [place] Neutrophils (Bld) [#/Vol] 6.28 10*3/uL Normal 1.45-7.50 [facility] Comment on above: Order Comment: Speci men Type: BLOOD SPECIMENOrdering Facility: [facility] Address: [address] [place] [address] Performed By: #### 5 7021-8 ####[facility] LABORATORYCLIA [id number] [address] Neutrophils/100 WBC (Bld) 77.3 % Normal [facility] Comment on above: Order Comment: Speci men Type: BLOOD SPECIMENOrdering Facility: [facility] Address: [address] [place] [address] Performed By: #### 5 7021-8 ####[facility]ORYCLIA [id number] [address] Nucleated RBC (Bld) [#/Vol] 10*3/uL Normal <0.01 [facility] Comment on above: Order Comment: Speci men Type: BLOOD SPECIMENOrdering Facility: [facility] Address: [address] [place] [address] Performed By: #### 5 7021-8 ####[facility] LABORATORYCLIA [id number] [address] Nucleated RBC/100 WBC (Bld) [Ratio] 0.0 /100 WBC Normal [facility] Comment on above: Order Comment: Speci men Type: BLOOD SPECIMENOrdering Facility: [facility] Address: [address] [place] [address] Performed By: #### 5 7021-8 ####[facility] LABORATORYCLIA [id number] [address] Platelet mean volume (Bld) [Entitic vol] 10.4 fL Normal 9.0-12.7 [facility] Comment on above: Order Comment: Speci men Type: BLOOD SPECIMENOrdering Facility: [facility] Address: [address] [place] [address] Performed By: #### 5 7021-8 ####[facility]ATORYCLIA [id number] [address] [place] Platelets (Bld) [#/Vol] 333 10*3/uL Normal 150-400 [facility] Comment on above: Order Comment: Speci men Type: BLOOD SPECIMENOrdering Facility: [facility] Address: [address] [place] [address] Performed By: #### 5 7021-8 ####[facility] LABORATORYCLIA [id number] [address] OF [facility] RBC (Bld) [#/Vol] 4.41 10*6/uL Normal 3.90-5.20 [facility] Comment on above: Order Comment: Speci men Type: BLOOD SPECIMENOrdering Facility: [facility] Address: [address] [place] [address] Performed By: #### 5 7021-8 ####[facility] LABORATORYCLIA [id number] [address] WBC (Bld) [#/Vol] 8.12 10*3/uL Normal 3.70-11.00 [facility] Comment on above: Order Comment: Speci men Type: BLOOD SPECIMENOrdering Facility: [facility] Address: [address] [place] [address] Performed By: #### 5 7021-8 ####[facility] LABORATORYCLIA [id number] [address] ECG COMPLETEon 04-03-2024 ECG COMPLETE Ventricular Rate : 8 5 BPM Atrial Rate : 85 BPM P-R Interval : 162 ms QRS Duration : 76 ms Q-T Interval : 354 ms QTC Calculation(Bazett) : 421 ms Calculated P [place] : 65 degrees Calculated R [place] : 22 degrees Calculated T [place] : 33 degrees NORMAL SINUS RHYTHM NORMAL ECG NO PREVIOUS ECGS AVAILABLE Confirmed by BRENNA SANTIAGO MD ([id number]) on 10/11/2024 11:20:25 PM NAME : AGUEDA LEWIS PID : [id number] : 1995 Gender : Female Race : ORD : [id number] Procedure Date : Apr 03 2024 13:28:54 Edit Date : Oct 11 2024 23:20:30 Diagnosis: NORMAL SINUS RHYTHM NORMAL ECG NO PREVIOUS ECGS AVAILABLE Confirmed by BRENNA SANTIAGO MD ([id number]) on 10/11/2024 11:20:25 PM Test Reason : Chest Pain Location : 4 : [facility] Overread By : BRENNA SANTIAGO MD Edited By : BRENNA SANTIAGO MD Referred By : , Acquired by : BRAXTON SORIANO Normal [facility] ED NOTEon 04-03-2024 ED NOTE HNO ID: [id number] Author: MINDY VICTORIA RN Service: ? Author Type: Registered Nurse Type: ED Notes Filed: 04/03/2024 13:36 Note Text: XR notified Normal [facility] ED PROV NOTEon 04-03-2024 ED PROV NOTE HNO ID: [id number] Author: BUDDY HOPKINS MD Service: Emergency Medicine Author Type: Physician Type: ED Provider Notes Filed: 04/03/2024 16:23 Note Text: ED Provider Note Patient Name: Agueda Lewis : 1995 SERVICE DATE: 04/03/24 History Patient presents with: Chest Pain: Pt arrives to triage c/o midsternal non radiating chest pain that started around 0600 this am, and left hand numbness The patient is a 29 year old female with a significant past medical history of cholelithiasis, obesity, and regularly vapes, who presents to the ED for evaluation of intermittent midsternal chest discomfort, which started at 6 AM this morning. There is no radiation of the discomfort. Pain earlier was rated at a 7 out of 10 but has subsided to a 4 out of 10. She has mild left hand paresthesias, which she attributes to getting an IV yesterday. She states this does not feel similar to her gallstone discomfort nor does it feel like indigestion. Pain is not worse with exertion or deep inspiration nor is there a sharp component to the pain. No abdominal discomfort or UTI symptoms. PAST MEDICAL HISTORY Diagnosis Date Anemia Chest pain Chlamydia infection 07/15/2014 Cholelithiasis Depression GERD (gastroesophageal reflux disease) PMH - PAST MEDICAL HISTORY OF 12/18/2003 normal color vision PMH - PAST MEDICAL HISTORY OF age 4 fracture right elbow PMH - PAST MEDICAL HISTORY OF age 4 fracture right wrist PMH - PAST MEDICAL HISTORY OF bronchial infection Trichomonal infection 03/22/2015 PAST SURGICAL HISTORY Procedure Laterality Date ADENOIDECTOMY PRIMARY PAST SURGICAL HISTORY OF root canal FAMILY HISTORY Problem Relation Age of Onset Diabetes Maternal Grandmother other (sleep apnea) Maternal Grandmother Asthma Father Heart Mother hypertrophic cardiomyopathy Social History Tobacco Use Smoking status: Never Smokeless tobacco: Never Tobacco comments: vapes without nicotine Vaping Use Vaping status: current everyday user Substances: Flavoring Devices: Refillable tank Substance and Sexual Activity Alcohol use: No Drug use: No Sexual activity: Yes Partners: Male control/protection: None ALLERGIES No Known Allergies Review of Systems All other systems reviewed and are negative. Physical Exam Vitals [04/03/24 1326] BP Pulse Temp Temp src Resp SpO2 Weight Height 122/72 90 36.7 ?C (98.1 ?F) Oral 22 99 % 128.4 kg (283 lb) 1.803 m (5' 11) Physical Exam Vitals and nursing note reviewed. Constitutional: Appearance: She is well-developed. She is not ill-appearing or toxic-appearing. HENT: Head: Normocephalic and atraumatic. Right Ear: External ear normal. Left Ear: External ear normal. Eyes: Conjunctiva/sclera: Conjunctivae normal. Neck: Trachea: No tracheal deviation. Cardiovascular: Rate and Rhythm: Normal rate and regular rhythm. Heart sounds: Normal heart sounds. No murmur heard. Pulmonary: Effort: Pulmonary effort is normal. No respiratory distress. Breath sounds: Normal breath sounds. No wheezing or rales. Chest: Chest wall: Tenderness present. Abdominal: General: There is no distension. Palpations: Abdomen is soft. Tenderness: There is no abdominal tenderness. There is no guarding. Musculoskeletal: Cervical back: Normal range of motion and neck supple. Skin: General: Skin is warm and dry. Neurological: Mental Status: She is alert. Mental status is at baseline. Diagnostic Testing ED Labs Ordered and Reviewed BASIC METABOLIC PANEL - Abnormal; Notable for the following components: Result Value Ref Range Glucose 107 (*) 74 - 99 mg/dL All other components within normal limits URINALYSIS WITH MICROSCOPIC, REFLEX CULTURE - Abnormal; Notable for the following components: Clarity Turbid (*) Clear Protein, Urine 1+ (*) Trace, Negative Urobilinogen 1+ (*) Normal Nitrites 2+ (*) Negative Bacteria Moderate (*) None Seen /HPF Casts, Hyaline 4-10 /LPF (*) 0 /LPF All other components within normal limits HIGH SENSITIVITY TROPONIN T (INITIAL) - Normal MAGNESIUM - Normal HCG, QUALITATIVE, URINE - Normal HIGH SENSITIVITY TROPONIN T (SECOND) - Normal COMPLETE BLOOD COUNT AND DIFFERENTIAL XR CHEST 2V FRONTAL/LAT Final Result IMPRESSION: No acute radiographic abnormality. Special Education Superintendent: AMIE Transcribe Date/Time: Apr 03 2024 2:20P Dictated by : VICTOR M FISCHER MD This examination was interpreted and the report reviewed and electronically signed by: VICTOR M FISCHER MD on Apr 03 2024 2:23PM EST Procedures ED Course / Clinical Impression Clinical Impressions as of 04/03/24 1619 Atypical chest pain MDM / Disposition / Plan The patient is a 29 year old female with a significant past medical history of cholelithiasis, obesity, and regularly vapes, who presents to the ED for evaluation of intermittent midsternal chest discomfort. Vital (more content not included)... Normal [facility] ED Triage Noteon 04-03-2024 ED Triage Note HNO ID: [id number] Author: STEFFANY NICOLE APRN.CNP Service: Emergency Medicine Author Type: Nurse Practitioner Type: ED Triage Notes Filed: 04/03/2024 13:33 Note Text: ED TRIAGE PROVIDER NOTE Patient Name: Agueda Lewis Service Date: 04/03/24 BRIEF HPI: This is a 29 year old female who presents to the ED with: Midsternal chest pain radiating into her left arm that began when she woke at 6:00 this morning. States that pain has been intermittent since that time. Does endorse intermittent shortness of breath as well. States that she is evaluated every 2 years for her heart, stating that her mother has a heart condition that she has also been evaluated for. Patient is still unsure if she has this heart condition BRIEF EXAM: Obese, no acute distress. Heart regular rate and rhythm, lungs clear to auscultation bilaterally. Pain on palpation to the anterior mid and left chest wall. Alert and oriented, speaking in full sentences without difficulty. INITIAL WORKUP AND DECISION MAKING: Orders Placed This Encounter XR CHEST 2V FRONTAL/LAT Complete Blood Count and Differential Basic Metabolic Panel High Sensitivity Troponin T with Reflex for ED Chest Pain MAGNESIUM BLD Urinalysis w Microscopic, reflex Culture HCG QUALITATIVE URINE EKG STAT EKG SIGNATURE: Steffany Nicole APRN.INTERNET AND E BUSINESS PROJECT MANAGER Normal [facility] HCG Preg Ur Qlon 04-03-2024 HCG ( test) Ql (U) Negative Normal Negative [facility] Comment on above: Order Comment: Speci men Type: URINE SPECIMEN [facility] Address: [address] [place] [address] Result Comment: This test is intended to aid in the early detection of . Very dilute urine samples, as indicated by a low specific gravity, may not contain bank representative levels of hCG. This test detects intact hCG only. This test does not reliably detect hCG degradation products, including free-beta subunit and beta-core fragment. Therefore, this test may show reduced reactivity in urine after 8 weeks gestation. A number of conditions other than , including trophoblastic disease and certain non-trophoblastic neoplasms cause elevated levels of hCG. As with any assay employing mouse antibodies, the possibility exists for interference by human anti-mouse antibodies (HAMA) in the specimen. The test provides a presumptive diagnosis for . Performed By: #### 2 106-3 #### [facility] CLIA [id number] [address] [place] HIGH SENSITIVITY TROPONIN T (INITIAL)on 04-03-2024 Troponin T.cardiac High sensitivity method [Mass/Vol] <6 Normal <12 [facility] Comment on above: Order Comment: Speci men Type: BLOOD SPECIMENOrdering Facility: [facility] Address: [address] [place] [address] Performed By: #### L [id number] ####[facility]ORATORYCLIA [id number] [address] HIGH SENSITIVITY TROPONIN T (SECOND)on 04-03-2024 Troponin T.cardiac High sensitivity method [Mass/Vol] <6 Normal <12 [facility] Comment on above: Order Comment: Speci men Type: BLOOD SPECIMENOrdering Facility: [facility] Address: [address] [place] [address] Performed By: #### L [id number] ####[facility]ORATORYCLIA [id number] [address] [place] [facility] 04-03 Magnesium [Mass/Vol] 1.8 mg/dL Normal 1.7-2.3 [facility] Comment on above: Order Comment: Speci men Type: BLOOD SPECIMENOrdering Facility: [facility] Address: [address] [place] [address] Performed By: #### 1 9123-9, 58645-1 ####[facility]ORATORYCLIA [id number] [address] Urinalysis complete panel (U )on 04-03-2024 Bacteria LM.HPF (Urine sed) [#/Area] Moderate Abnormal None Seen [facility] Comment on above: Order Comment: Speci men Type: URINE SPECIMENOrdering Facility: [facility] Address: [address] [place] [address] Performed By: #### 2 4356-8 ####[facility]CL[facility] [id number] [address] Bilirubin Ql (U) Negative Normal Negative [facility] Comment on above: Order Comment: Speci men Type: URINE SPECIMENOrdering Facility: [facility] Address: [address] [place] [address] Performed By: #### 2 4356-8 ####[facility]ORATORYCLIA [id number] [address] Clarity (Unsp spec) Turbid Abnormal Clear [facility] Comment on above: Order Comment: Speci men Type: URINE SPECIMENOrdering Facility: [facility] Address: [address] [place] [address] Performed By: #### 2 4356-8 ####[facility]ORATORYCLIA [id number] [address] Color (U) Yellow Normal yellow [facility] Comment on above: Order Comment: Speci men Type: URINE SPECIMENOrdering Facility: [facility] Address: [address] [place] [address] Performed By: #### 2 4356-8 ####[facility]ATORYCLIA [id number] [address] Epithelial cells LM.HPF (Urine sed) [#/Area] Few Normal [facility] Comment on above: Order Comment: Speci men Type: URINE SPECIMENOrdering Facility: [facility] Address: [address] [place] [address] Performed By: #### 2 4356-8 ####[facility]ORATORYCLIA [id number] [address] [place] Glucose Test strip (U) [Mass/Vol] Negative Normal Trace, Negative [facility] Comment on above: Order Comment: Speci men Type: URINE SPECIMENOrdering Facility: [facility] Address: [address] [place] [address] Performed By: #### 2 4356-8 ####[facility]ATORYCLIA [id number] [address] [place] Hemoglobin Ql (U) Negative Normal Negative, Trace [facility] Comment on above: Order Comment: Speci men Type: URINE SPECIMENOrdering Facility: [facility] Address: [address] [place] [address] Performed By: #### 2 4356-8 ####[facility]ATORYCLIA [id number] [address] [place] Hyaline casts (Urine sed) [#/Area] 4-10 /LPF Abnormal 0 /LPF [facility] Comment on above: Order Comment: Speci men Type: URINE SPECIMENOrdering Facility: [facility] Address: [address] [place] [address] Performed By: #### 2 4356-8 ####[facility]ATORYCLIA [id number] [address] [place] Ketones Ql (U) Negative Normal Negative, Trace [facility] Comment on above: Order Comment: Speci men Type: URINE SPECIMENOrdering Facility: [facility] Address: [address] [place] [address] Performed By: #### 2 4356-8 ####[facility]ATORYCLIA [id number] [address] Leukocyte esterase Test strip Ql (U) Negative Normal Negative, 25 [place]/uL [facility] Comment on above: Order Comment: Speci men Type: URINE SPECIMENOrdering Facility: [facility] Address: [address] [place] [address] Performed By: #### 2 4356-8 ####[facility]ATORYCLIA [id number] [address] STATES [facility] Nitrite Ql (U) 2+ Abnormal Negative [facility] Comment on above: Order Comment: Speci men Type: URINE SPECIMENOrdering Facility: [facility] Address: [address] [place] [address] Performed By: #### 2 4356-8 ####[facility]ATORYCLIA [id number] [address] [place] pH (U) 6.5 [pH] Normal 5.0-8.0 [facility] Comment on above: Order Comment: Speci men Type: URINE SPECIMENOrdering Facility: [facility] Address: [address] [place] [address] Performed By: #### 2 4356-8 ####[facility]ATORYCLIA [id number] [address] [place] Protein (U) [Mass/Vol] 1+ Abnormal Trace, Negative [facility] Comment on above: Order Comment: Speci men Type: URINE SPECIMENOrdering Facility: [facility] Address: [address] [place] [address] Performed By: #### 2 4356-8 ####[facility]ATORYCLIA [id number] [address] [place] RBC LM.HPF (Urine sed) [#/Area] 0-3 /HPF Normal 0-3 /HPF [facility] Comment on above: Order Comment: Speci men Type: URINE SPECIMENOrdering Facility: [facility] Address: [address] [place] [address] Performed By: #### 2 4356-8 ####[facility]ORATORYCLIA [id number] [address] [place] Specific gravity (U) [Rel density] 1.030 Normal 1.005-1.030 [facility] Comment on above: Order Comment: Speci men Type: URINE SPECIMENOrdering Facility: [facility] Address: [address] [place] [address] Performed By: #### 2 4356-8 ####[facility]ORATORYCLIA [id number] [address] [place] Urobilinogen Ql (U) 1+ Abnormal Normal [facility] Comment on above: Order Comment: Speci men Type: URINE SPECIMENOrdering Facility: [facility] Address: [address] [place] [address] Performed By: #### 2 4356-8 ####[facility]ITALCLIA [id number] [address] [place] WBC LM.HPF (Urine sed) [#/Area] 0-5 /HPF Normal 0-5 /HPF [facility] Comment on above: Order Comment: Speci men Type: URINE SPECIMENOrdering Facility: [facility] Address: [address] [place] [address] Performed By: #### 2 4356-8 ####[facility] LABORATORYCLIA [id number] [address] [place] XR CHEST 2V FRONTAL/LATon XR CHEST 2V FRONTAL/LAT * * *Final Report* * * DATE OF EXAM: Apr 03 2024 2:03PM AKX [id number] - XR CHEST 2V FRONTAL/LAT / PROCEDURE REASON: Chest Pain * * * * Physician Interpretation * * * * EXAMINATION: CHEST RADIOGRAPH (2 VIEW FRONTAL and LATERAL) CLINICAL HISTORY: Chest Pain MQ: [id number] EXAM DATE/TIME: 04/03/2024 2:03 PM COMPARISON: Chest 2 views 07/22/2023. RESULT: Lines, tubes, and devices: None. Lungs and pleura: No consolidation. No lung mass. No pleural effusion. No pneumothorax. Cardiomediastinal silhouette: Within normal limits and unchanged. Bones and soft tissues: Unremarkable. IMPRESSION: No acute radiographic abnormality. Special Education Superintendent: PSCB Transcribe Date/Time: Apr 03 2024 2:20P Dictated by : VICTOR M FISCHER MD This examination was interpreted and the report reviewed and electronically signed by: VICTOR M FISCHER MD on Apr 03 2024 2:23PM EST [id number] Normal [facility] Progress Noteon 04-02-2024 Progress Note Chart reviewed of ED follow up Seen in [facility] ED on 03/29/2024 Reason: Abdominal pain-gallstones Discharge instructions: Follow-up with surgery. Patient has appointment scheduled with General Surgery on 04/11/24. ID8-Mobile message sent. [facility] 36on 04-01-2024 36 Spoke with patient a nd she is scheduled. DP [facility] 36 Please contact leo oden to schedule. [facility] 36on 03-29-2024 36 ED provider sonny gregorio appointment for patient to see a surgeon for biliary colic. ED provider advised that a message would be sent to management and that they will reach out to the patient on Monday to assist with scheduling. [facility] CBC W Auto Differential pane l (Bld)on 03-29-2024 Basophils (Bld) [#/Vol] 0 10*3/uL 0.0 - 0.2 10*3/uL [facility] Basophils/100 WBC (Bld) 0.4 % 0.0 - 2.0 % [facility] [facility] Eosinophils (Bld) [#/Vol] 0.1 10*3/uL 0.0 - 0.5 10*3/uL [facility] Eosinophils/100 WBC (Bld) 1.2 % 0.0 - 6.0 % [facility] Erythrocyte distribution width (RBC) [Ratio] 13.8 % 11.5 - 15.0 % [facility] Hematocrit (Bld) [Volume fraction] 39.9 % 35.0 - 47.0 % [facility] Hemoglobin (Bld) [Mass/Vol] 12.7 g/dL 11.7 - 16.0 g/dL [facility] Immature granulocytes (Bld) [#/Vol] 0 10*3/uL NINF - 0.1 10*3/uL [facility] Immature granulocytes/100 WBC (Bld) 0.2 % 0.0 - 2.0 % [facility] Interpretation and review of laboratory results Normal [facility] Lymphocytes (Bld) [#/Vol] 1.9 10*3/uL 1.0 - 4.3 10*3/uL [facility] Lymphocytes/100 WBC (Bld) 18.6 % 15.0 - 45.0 % [facility] MCH (RBC) [Entitic mass] 26.3 pg 26.0 - 34.0 pg [facility] MCHC (RBC) [Mass/Vol] 31.8 % 30.5 - 36.0 % [facility] MCV (RBC) [Entitic vol] 82.8 fL 77.0 - 99.0 fL [facility] Monocytes (Bld) [#/Vol] 0.9 10*3/uL 0.0 - 0.9 10*3/uL [facility] Monocytes/100 WBC (Bld) 8.5 % 5.0 - 13.0 % [facility] Neutrophils (Bld) [#/Vol] 7.1 10*3/uL 1.8 - 7.5 10*3/uL [facility] Neutrophils/100 WBC (Bld) 71.1 % 38.0 - 82.0 % [facility] Nucleated RBC/100 WBC (Bld) [Ratio] 0 % [facility] Platelet mean volume (Bld) [Entitic vol] 10.3 fL 9.0 - 12.7 fL [facility] Platelets (Bld) [#/Vol] 387 10*3/uL 140 - 440 10*3/uL [facility] RBC (Bld) [#/Vol] 4.82 10*6/uL 3.80 - 5.2 0 10*6/uL [facility] WBC (Bld) [#/Vol] 10 10*3/uL 3.6 - 10.7 10*3/uL [facility] CBC WITH AUTO DIFFERENTIALon 03-29-2024 Basophils (Bld) [#/Vol] 0.0 10*3/uL Normal 0.0-0.2 [facility] Comment on above: Performed By: #### L [id number] #### Design Printing Machine Setter: RYLIE CRAWFORD ([id number]) [facility] ([facility]) [address] Basophils/100 WBC (Bld) 0.4 % Normal 0.0-2.0 [facility] Comment on above: Performed By: #### L [id number] #### Design Printing Machine Setter: RYLIE CARWFORD ([id number]) [facility] ([facility]) [address] Eosinophils (Bld) [#/Vol] 0.1 10*3/uL Normal 0.0-0.5 [facility] Comment on above: Performed By: #### L [id number] #### Design Printing Machine Setter: RYLIE CRAWFORD ([id number]) [facility] [place] [facility] [address] Eosinophils/100 WBC (Bld) 1.2 % Normal 0.0-6.0 [facility] Comment on above: Performed By: #### L [id number] #### Design Printing Machine Setter: RYLIE CRAWFORD ([id number]) [facility] [place] [facility] [address] Erythrocyte distribution width (RBC) [Ratio] 13.8 % Normal 11.5-15.0 [facility] Comment on above: Performed By: #### L [id number] #### Design Printing Machine Setter: RYLIE CRAWFORD ([id number]) [facility] [address] Hematocrit (Bld) [Volume fraction] 39.9 % Normal 35.0-47.0 [facility] Comment on above: Performed By: #### L [id number] #### Design Printing Machine Setter: RYLIE CRAWFORD ([id number]) [facility] [place] [facility] [address] Hemoglobin (Bld) [Mass/Vol] 12.7 g/dL Normal 11.7-16.0 [facility] Comment on above: Performed By: #### L [id number] #### Design Printing Machine Setter: RYLIE CRAWFORD ([id number]) [facility] [address] IMMATURE GRANS % 0.2 % Normal 0.0-2.0 [facility] Comment on above: Performed By: #### L [id number] #### Design Printing Machine Setter: RYLIE CRAWFORD ([id number]) [facility] [place] ([facility]) [address] IMMATURE GRANS ABSOLUTE 0.0 10*3/uL Normal <0.1 [facility] Comment on above: Performed By: #### L [id number] #### Design Printing Machine Setter: RYLIE CRAWFORD ([id number]) [facility] ([facility]) [address] Lymphocytes (Bld) [#/Vol] 1.9 10*3/uL Normal 1.0-4.3 [facility] Comment on above: Performed By: #### L [id number] #### Design Printing Machine Setter: RYLIE CRAWFORD ([id number]) [facility] ([facility]) [address] Lymphocytes/100 WBC (Bld) 18.6 % Normal 15.0-45.0 [facility] Comment on above: Performed By: #### L [id number] #### Design Printing Machine Setter: RYLIE CRAWFORD ([id number]) [facility] ([facility]) [address] MCH (RBC) [Entitic mass] 26.3 pg Normal 26.0-34.0 [facility] Comment on above: Performed By: #### L [id number] #### Design Printing Machine Setter: RYLIE CRAWFORD ([id number]) [facility] ([facility]) [address] MCHC 31.8 % Normal 30.5-36.0 [facility] Comment on above: Performed By: #### L [id number] #### Design Printing Machine Setter: RYLIE CRAWFORD ([id number]) [facility] ([facility]) [address] MCV (RBC) [Entitic vol] 82.8 fL Normal 77.0-99.0 [facility] Comment on above: Performed By: #### L [id number] #### Design Printing Machine Setter: RYLIE CRAWFORD ([id number]) [facility] ([facility]) [address] Monocytes (Bld) [#/Vol] 0.9 10*3/uL Normal 0.0-0.9 [facility] Comment on above: Performed By: #### L [id number] #### Design Printing Machine Setter: RYLIE CRAWFORD ([id number]) [facility] [place] [facility] [address] Monocytes/100 WBC (Bld) 8.5 % Normal 5.0-13.0 [facility] Comment on above: Performed By: #### L [id number] #### Design Printing Machine Setter: RYLIE CRAWFORD ([id number]) [facility] [address] NEUTROPHILS ABSOLUTE 7.1 10*3/uL Normal 1.8-7.5 [facility] Comment on above: Performed By: #### L [id number] #### Design Printing Machine Setter: RYLIE CRAWFORD ([id number]) [facility] [place] [facility] [address] Neutrophils/100 WBC (Bld) 71.1 % Normal 38.0-82.0 [facility] Comment on above: Performed By: #### L [id number] #### Design Printing Machine Setter: RYLIE CRAWFORD ([id number]) [facility] [place] ([facility]) [address] [place] [address] [place] NRBC 0.0 /100 WBCs Normal 0.0-2.0 [facility] Comment on above: Performed By: #### L [id number] #### Design Printing Machine Setter: RYLIE CRAWFORD ([id number]) [facility] [address] Platelet mean volume (Bld) [Entitic vol] 10.3 fL Normal 9.0-12.7 [facility] Comment on above: Performed By: #### L [id number] #### Design Printing Machine Setter: RYLIEANGIE CRAWFORD ([id number]) [facility] ([facility]) [address] Platelets (Bld) [#/Vol] 387 10*3/uL Normal 140-440 [facility] Comment on above: Performed By: #### L [id number] #### Design Printing Machine Setter: RYLIE TY ([id number]) [facility] ([facility]) [address] RBC (Bld) [#/Vol] 4.82 10*6/uL Normal 3.80-5.20 [facility] Comment on above: Performed By: #### L [id number] #### Design Printing Machine Setter: RYLIE TY ([id number]) [facility] ([facility]) [address] WBC (Bld) [#/Vol] 10.0 10*3/uL Normal 3.6-10.7 [facility] Comment on above: Performed By: #### L [id number] #### Design Printing Machine Setter: RYLIEANGIE CRAWFORD ([id number]) [facility] ([facility]) [address] CHLAMYDIA/GONORRHEAon 2023 CHLAMYDIA/GONORRHEA NEISSERIA GONORRHOEA E DNA PROBE Reference Not Detected Not Detected CHLAMYDIA TRACHOMATIS DNA PROBE Reference Not Detected Not Detected ORDER COMMENTS: Methodology: real-time PCR This test is intended for medical purposes only and is not intended for the evaluation of suspected sexual abuse or for other forensic purposes. In certain contexts, culture may be required to meet applicable laws and regulations for diagnosis of C. trachomatis and N. gonorrhoeae infections. Per 2014 CDC recommmendations, this test does not include confirmation of positive results by an alternative nucleic acid target. A negative result does not exclude the possibility of infection. A result of invalid indicates that a new specimen should be collected if clinically indicated. Normal [facility] Comment on above: Performed By: #### L [id number] #### Design Printing Machine Setter: ASTRID MERCEDES ([id number]) [facility] ([facility]) [address] COMPLETE URINALYSISon 2023 BACTERIA (#/HPF) IN URINE Moderate Abnormal Negative [facility] Comment on above: Performed By: #### L [id number] ####Design Printing Machine Setter: RYLIE CRAWFORD ([id number])[facility] [place] ([facility])[address] BILIRUBIN, TOTAL PRESENCE IN URINE Negative Normal Negative [facility] Comment on above: Performed By: #### L [id number] ####Design Printing Machine Setter: RYLIE CRAWFORD ([id number])[facility] ([facility])[address] Clarity (U) Clear Normal Clear [facility] Comment on above: Performed By: #### L [id number] ####Design Printing Machine Setter: RYLIE CRAWFORD ([id number])[facility] [place] ([facility])[address] Color (U) Light Yellow Normal Lt. Yellow [facility] Comment on above: Performed By: #### L [id number] ####Design Printing Machine Setter: RYLIE CRAWFORD ([id number])[facility] [place] ([facility])[address] GLUCOSE (MG/DL) IN URINE Normal Normal Normal (<70) [facility] Comment on above: Performed By: #### L [id number] ####Design Printing Machine Setter: RYLIE CRAWFORD ([id number])[facility] [place] ([facility])[address] HEMOGLOBIN PRESENCE IN URINE 0.03 mg/dL Abnormal Negative [facility] Comment on above: Performed By: #### L [id number] ####Design Printing Machine Setter: RYLIE CRAWFORD ([id number])[facility] [place] ([facility])[address] Ketones Ql (U) Negative Normal Negative [facility] Comment on above: Performed By: #### L [id number] ####Design Printing Machine Setter: RYLIE CRAWFORD ([id number])[facility] ([facility])[address] LEUKOCYTE ESTERASE PRESENCE IN URINE BY TEST STRIP Negative Normal Negative [facility] Comment on above: Performed By: #### L [id number] ####Design Printing Machine Setter: RYLIE CRAWFORD ([id number])[facility] ([facility])[address] MUCUS (#/LPF) IN URINE SEDIMENT Many Abnormal Negative [facility] Comment on above: Performed By: #### L [id number] ####Design Printing Machine Setter: RYLIE CRAWFORD ([id number])[facility] ([facility])[address] NITRITE PRESENCE IN URINE Negative Normal Negative [facility] Comment on above: Performed By: #### L [id number] ####Design Printing Machine Setter: RYLIE CRAWFORD ([id number])[facility] ([facility])[address] NON-SQUAMOUS EPITHELIAL (#/HPF) IN URINE 0-2 Abnormal Negative [facility] Comment on above: Performed By: #### L [id number] ####Design Printing Machine Setter: RYLIE CRAWFORD ([id number])[facility] [place] ([facility])[address] pH (U) 5.0 [pH] Normal 5.0-8.0 [facility] Comment on above: Performed By: #### L [id number] ####Design Printing Machine Setter: RYLIE CRAWFORD ([id number])[facility] ([facility])[address] Protein (U) [Mass/Vol] Negative Normal Negative [facility] Comment on above: Performed By: #### L [id number] ####Design Printing Machine Setter: RYLIE CRAWFORD ([id number])[facility] ([facility])[address] [place] [address] [place] RBC (#/HPF) IN URINE SEDIMENT 0-2 Normal 0-2 [facility] Comment on above: Performed By: #### L [id number] ####Design Printing Machine Setter: RYLIE CRAWFORD ([id number])[facility] ([facility])[address] Specific gravity (U) [Rel density] 1.023 Normal 1.005-1.030 [facility] Comment on above: Performed By: #### L [id number] ####Design Printing Machine Setter: RYLIE CRAWFORD ([id number])[facility] [place] ([facility])[address] SQUAMOUS EPITHELIAL CELLS (#/HPF) IN URINE SEDIMENT 6-10 Abnormal 3-5 [facility] Comment on above: Performed By: #### L [id number] ####Design Printing Machine Setter: RYLIE CRAWFORD ([id number])[facility] [place] ([facility])[address] [place] [address] [place] TRICHOMONAS SP (#/HPF) IN URINE Few (1-5) Abnormal Negative [facility] Comment on above: Performed By: #### L [id number] ####Design Printing Machine Setter: RYLIE CRAWFORD ([id number])[facility] [place] ([facility])[address] [place] [address] [place] UROBILINOGEN (MG/DL) IN URINE Normal Normal Normal (0-1) [facility] Comment on above: Performed By: #### L [id number] ####Design Printing Machine Setter: RYLIE CRAWFORD ([id number])[facility] ([facility])[address] [place] [address] [place] WBC (LEUKOCYTE) (#/HPF) IN URINE SEDIMENT 0-2 Normal 0-5 [facility] Comment on above: Performed By: #### L [id number] ####Design Printing Machine Setter: RYLIE CRAWFORD ([id number])[facility] [place] ([facility])[address] COMPREHENSIVE METABOLIC PANE Petros 03-29-2024 Albumin [Mass/Vol] 4.3 g/dL Normal 3.5-5.0 [facility] Comment on above: Performed By: #### L AB99, LAB17 ####Design Printing Machine Setter: RYLIE CRAWFORD ([id number])[facility] [place] ([facility])[address] ALP [Catalytic activity/Vol] 77 U/L Normal 38-126 [facility] Comment on above: Performed By: #### L AB99, LAB17 ####Design Printing Machine Setter: RYLIE CRAWFORD ([id number])[facility] [place] ([facility])[address] ALT [Catalytic activity/Vol] 16 U/L Normal 0-34 [facility] Comment on above: Performed By: #### L AB99, LAB17 ####Design Printing Machine Setter: RYLIE CRAWFORD ([id number])[facility] [place] ([facility])[address] Anion gap [Moles/Vol] 7 mmol/L Normal 3-13 [facility] Comment on above: Performed By: #### L AB99, LAB17 ####Design Printing Machine Setter: RYLIE CRAWFORD ([id number])[facility] [place] ([facility])[address] AST [Catalytic activity/Vol] 21 U/L Normal 15-46 [facility] Comment on above: Performed By: #### L AB99, LAB17 ####Design Printing Machine Setter: RYLIE CRAWFORD ([id number])[facility] [place] ([facility])[address] [place] [address] [place] Bilirubin [Mass/Vol] 0.4 mg/dL Normal 0.2-1.3 [facility] Comment on above: Performed By: #### L AB99, LAB17 ####Design Printing Machine Setter: RYLIE CRAWFORD ([id number])[facility] [place] ([facility])[address] [place] [address] [place] Calcium [Mass/Vol] 8.9 mg/dL Normal 8.4-10.4 [facility] Comment on above: Performed By: #### L AB99, LAB17 ####Design Printing Machine Setter: RYLIE CRAWFORD ([id number])[facility] ([facility])[address] Chloride [Moles/Vol] 107 mmol/L Normal 98-107 [facility] Comment on above: Performed By: #### L AB99, LAB17 ####Design Printing Machine Setter: RYLIE CRAWFORD ([id number])[facility] ([facility])[address] CO2 [Moles/Vol] 25 mmol/L Normal 22-30 [facility] Comment on above: Performed By: #### Tianna HOUSER, LAB17 ####Design Printing Machine Setter: RYLIE CRAWFORD ([id number])[facility] ([facility] Creatinine [Mass/Vol] 0.92 mg/dL Normal 0.52-1.04 [facility] Comment on above: Performed By: #### L CORRINA, LAB17 ####Design Printing Machine Setter: RYLIE CRAWFORD ([id number])[facility] ([facility])[address] GLOMERULAR FILTRATION RATE ML/MIN/1.73 SQ M.PREDICTED 86.1 mL/min/1.73m*2 Normal >60.0 [facility] Comment on above: Result Comment: Calc ulation based on the Chronic Kidney Disease Epidemiology Collaboration (CKD-EPI) equation refit without adjustment for race Performed By: #### L AB99, LAB17 ####Design Printing Machine Setter: RYLIE CRAWFORD ([id number])[facility] ([facility])[address] Glucose [Mass/Vol] 98 mg/dL Normal 70-100 [facility] Comment on above: Performed By: #### L AB99, LAB17 ####Design Printing Machine Setter: RYLIE CRAWFORD ([id number])[facility] ([facility])[address] Potassium [Moles/Vol] 3.6 mmol/L Normal 3.5-5.1 [facility] Comment on above: Performed By: #### L AB99, LAB17 ####Design Printing Machine Setter: RYLIE CRAWFORD ([id number])[facility] [place] ([facility])[address] Protein [Mass/Vol] 8.0 g/dL Normal 6.3-8.2 [facility] Comment on above: Performed By: #### L AB99, LAB17 ####Design Printing Machine Setter: RYLIE CRAWFORD ([id number])[facility] [place] ([facility])[address] Sodium [Moles/Vol] 139 mmol/L Normal 135-145 [facility] Comment on above: Performed By: #### L AB99, LAB17 ####Design Printing Machine Setter: RYLIE CRAWFORD ([id number])[facility] [place] ([facility])[address] Urea nitrogen [Mass/Vol] 12 mg/dL Normal 7-17 [facility] Comment on above: Performed By: #### L AB99, LAB17 ####Design Printing Machine Setter: RYLIE CRAWFORD ([id number])[facility] [place] ([facility])[address] Comprehensive metabolic 1998 panelon 03-29-2024 Albumin [Mass/Vol] 4.3 g/dL 3.5 - 5.0 g/dL [facility] ALP [Catalytic activity/Vol] 77 U/L 38 - 126 U/L [facility] ALT [Catalytic activity/Vol] 16 U/L 0 - 34 U/L [facility] Anion gap [Moles/Vol] 7 mmol/L 3 - 13 mmol/L [facility] AST [Catalytic activity/Vol] 21 U/L 15 - 46 U/L [facility] Bilirubin [Mass/Vol] 0.4 mg/dL 0.2 - 1 .3 mg/dL [facility] Calcium [Mass/Vol] 8.9 mg/dL 8.4 - 10. 4 mg/dL [facility] Chloride [Moles/Vol] 107 mmol/L 98 - 10 7 mmol/L [facility] CO2 [Moles/Vol] 25 mmol/L 22 - 30 mmol/L [facility] Creatinine [Mass/Vol] 0.92 mg/dL 0.52 - 1.04 mg/dL [facility] GFR/1.73 sq M.predicted (S/P/Bld) [Vol rate/Area] 86.1 mL/min - PINF [facility] Comment on above: Calculation based on the Chronic Kidney Disease Epidemiology Collaboration (CKD-EPI) equation refit without adjustment for race Glucose [Mass/Vol] 98 mg/dL 70 - 100 mg/dL [facility] Potassium [Moles/Vol] 3.6 mmol/L 3.5 - 5.1 mmol/L [facility] Protein [Mass/Vol] 8 g/dL 6.3 - 8.2 g/dL [facility] Sodium [Moles/Vol] 139 mmol/L 135 - 145 mmol/L [facility] Urea nitrogen [Mass/Vol] 12 mg/dL 7 - 17 mg/dL [facility] ED Nursing Noteon 03-29-2024 ED Nursing Note Attempted PIV x2; unsuccessful. Will notify oncoming RN. Normal [facility] ED Nursing Note Patient states that she has had RUQ pain intermittently for the past couple weeks. States that she has hx of gallstones. Denies abdominal surgical hx. Endorses nausea w/out vomiting. Normal [facility] ED Provider Noteon ED Provider Note EMERGENCY DEPARTMENT ENCOUNTER Pt Name: Agueda Lewis Birthdate 1995 Date of evaluation: 03/29/2024 ED Provider: Vince Hope MD CHIEF COMPLAINT Chief Complaint Patient presents with Abdominal Pain HISTORY OF PRESENT ILLNESS (Location/Symptom, Timing/Onset, Context/Setting, Quality, Duration, Modifying Factors, Severity) Note limiting factors. I wore appropriate PPE for the entirety of this encounter. 29-year-old female with past medical history significant for cholelithiasis presents to the ER for evaluation of right upper quadrant pain. Patient states that some started earlier today. The pain is located in her right upper quadrant and described as a sharp sensation. Pain does not radiate and is not associate with nausea or vomiting. Patient has taken rida-ioo-cdbsxow medication without significant proven symptoms. Of note patient was diagnosed with cholelithiasis approximate year ago and has had intermittent pain in her right upper quadrant. Patient denies fevers, chills, vomiting, urinary symptoms, constipation or diarrhea. Agueda Lewis is a 29 y.o. who presents to the emergency department with chief complaint of right upper quadrant pain history of gallstones Nursing Notes were reviewed. Limitations to history: None Outside historians: None REVIEW OF SYSTEMS Review of Systems All other systems reviewed and are negative. Pertinent positives and negatives as per HPI. PAST MEDICAL HISTORY Past Medical History: Diagnosis Date Anemia Heart murmur SURGICAL HISTORY Past Surgical History: Procedure Laterality Date ADENOIDECTOMY as child, unsure if b/l CURRENT MEDICATIONS Discharge Medication List as of 03/29/2024 9:33 PM CONTINUE these medications which have NOT CHANGED Details ferrous sulfate 325 (65 Fe) MG tablet Take 325 mg by mouth daily (with breakfast)., Historical Med ondansetron (Zofran) 4 MG tablet TAKE 1 TABLET BY MOUTH EVERY 8 HOURS NEEDED FOR NAUSEA AND VOMITING FOR UP TO 7 DAYS, Normal QUEtiapine (SEROquel) 25 MG tablet Take 25 mg by mouth Nightly., Starting Mon02/07/2023, Historical Med sertraline (Zoloft) 50 MG tablet Take 50 mg by mouth Nightly., Starting Mon02/07/2023, Historical Med TRAZODONE HCL PO Take by mouth., Historical Med ALLERGIES Patient has no known allergies. FAMILY HISTORY Family History Problem Relation Name Age of Onset Hypertrophic cardiomyopathy Mother No Known Problems Father No Known Problems Sister No Known Problems Brother Heart failure Maternal Grandmother Lung cancer Paternal Grandmother SOCIAL HISTORY Social History Socioeconomic History Marital status: Tobacco Use Smoking status: Former Smokeless tobacco: Never Vaping Use Vaping status: Former Substances: Nicotine, Flavoring Substance and Sexual Activity Alcohol use: Never Drug use: Never Sexual activity: Yes control/protection: None Social Drivers of Health Financial Resource Strain: Low Risk (03/27/2023) Overall Financial Resource Strain (CARDIA) Difficulty of Paying Living Expenses: Not hard at all Food Insecurity: No Food Insecurity (03/27/2023) Hunger Vital Sign Worried About Running Out of Food in the Last Year: Never true Ran Out of Food in the Last Year: Never true Transportation Needs: No Transportation Needs (03/27/2023) PRAPARE - Transportation Lack of Transportation (Medical): No Lack of Transportation (Non-Medical): No Physical Activity: Inactive (03/27/2023) Exercise Vital Sign Days of Exercise per Week: 0 days Minutes of Exercise per Session: 0 min Social Connections: Moderately Isolated (03/27/2023) Social Connection and Isolation Panel [NHANES] Frequency of Communication with Friends and Family: More than three times a week Frequency of Social Gatherings with Friends and Family: Twice a week Attends Rastafari Services: Never Active Member of Clubs or Organizations: No Attends Club or Organization Meetings: Never Marital Status: Intimate Partner Violence: Not At Risk (03/27/2023) Humiliation, Afraid, Rape, and Kick questionnaire Fear of Current or Ex-Partner: No Emotionally Abused: No Physically Abused: No Sexually Abused: No Housing Stability: Low Risk (03/27/2023) Housing Stability Vital Sign Unable to Pay for Housing in the Last Year: No Number of Places Lived in the Last Year: 1 Unstable Housing in the Last Year: No SCREENINGS PHYSICAL EXAM ED Triage Vitals [03/29/24 1845] Temp Heart Rate Resp BP 36.1 ?C (97 ?F) 108 18 138/81 SpO2 Temp Source Heart Rate Source Patient Position 100 % Temporal Monitor -- BP Location FiO2 (%) -- -- Physical Exam Vitals and nursing note reviewed. Constitutional: General: She is not in acute distress. Appearance: She is well-developed. HENT: Head: Normocephalic and atraumatic. Eyes: Conjunctiva/sclera: Conjunctivae normal. Cardiovascular: Rate and Rhythm: Nor (more content not included)... Normal [facility] HCG QUALITATIVE URINEon 11-0 Beta HCG ( test) Ql (U) Negative Normal Negative [facility] Comment on above: Result Comment: Plea note: Very dilute urine specimens, as indicated by a low specific gravity, may not contain bank representative levels of hCG. If is still suspected, a first morning urine specimen should be collected 48 hours later and tested. ORDER COMMENTS: is the most common reason for HCG in urine, although choriocarcinoma, hydatidiform mole, and certain nontrophoblastic malignancies also result in detectable urinary HCG levels. Sensitivity = 20mIU/mL. Performed By: #### L [id number] ####Design Printing Machine Setter: RYLIE CRAWFORD ([id number])[facility] ([facility])[address] LIPASEon 03-29-2024 Lipase [Catalytic activity/Vol] 110 U/L Normal 23-300 [facility] Comment on above: Performed By: #### L AB99, LAB17 ####Design Printing Machine Setter: RYLIE CRAWFORD ([id number])[facility] ([facility])[address] Laboratory - Chemistry and C hemistry - challengeOrdered By: Becky Hurst on 03-29-2024 Beta HCG ( test) Ql Negative Negative [facility] Comment on above: Please note: Very di lute urine specimens, as indicated by a low specific gravity, may not contain bank representative levels of hCG. If is still suspected, a first morning urine specimen should be collected 48 hours later and tested. Beta HCG ( test) Ql (U) is the most common reason for HCG in urine, although choriocarcinoma, hydatidiform mole, and certain nontrophoblastic malignancies also result in detectable urinary HCG levels. Sensitivity = 20mIU/mL. [facility] Laboratory - Chemistry and C hemistry - challengeon 03-29-2024 Lipase [Catalytic activity/Vol] 110 U/L 23 - 300 U/L [facility] No Panel InformationOrdered By: Becky Hurst on 03-29-2024 [facility] No Panel Informationon 03-29 Interpretation and review of laboratory results Normal [facility] US ABDOMEN LIMITEDon 024 US ABDOMEN LIMITED Patient Name: AGUEDA AC : 1995 Exam Date/Time: 03/29/2024 19:59 Procedure: US ABDOMEN LIMITED Ordering Provider: HOPE MICHAEL Reason For Exam: RUQ abdominal pain, no prior imaging INDICATION: 29-year-old female; right upper quadrant abdominal pain. VIEWS: Multiple grayscale sonographic images were obtained of the abdomen targeted to the right upper quadrant by the medical lab technologist with color and Doppler flow imaging. COMPARISON: Report from the [facility] RIGHT upper quadrant ultrasound 02/14/2024 (no images) FINDINGS: The aorta measures 1.9 cm proximally and 1.5 cm mid and 1.4 cm distal. IVC portions visualized are normal. The right kidney measures 9.6 x 4.6 x 4.5 cm. There is no hydronephrosis. The liver measures 15.1 cm in length. There is no discrete mass. The gallbladder wall thickness measures 3.3 mm, within normal limits. Gallstones are present within the gallbladder lumen. The gallbladder is not well-distended which limits complete evaluation. The sonographic Porter's sign provided as positive, nonspecific. There is no fluid surrounding the gallbladder. The pancreatic duct measures 2 mm. The portions the pancreas visualized are within normal limits. The pancreatic head and tail are obscured due to overlying bowel gas. There is fatty infiltration of the liver without a discrete mass. IMPRESSION: 1. Cholelithiasis. Positive sonographic Porter's sign is nonspecific (also positive on 02/14/2024). Nuclear medicine HIDA scan may be of benefit to further evaluate for chronic versus acute cholecystitis. 2. Hepatic steatosis. Report Dictated on Electronically Signed By: Tayla Shrestha MD Electronically Signed Date/Time: 03/29/2024 9:[address] [facility] US Abdomen limitedon 024 1. Cholelithiasis. Positive sonographic Porter's sign is nonspecific (also positive on 02/14/2024). Nuclear medicine HIDA scan may be of benefit to further evaluate for chronic versus acute cholecystitis. 2. Hepatic steatosis. Report Dictated on Electronically Signed By: Tayla Shrestha MD Electronically Signed Date/Time: 03/29/2024 9:22 PM [facility] RADIOLOGY SYSTEM Patient Name: AGUEDA AC : 1995 Exam Date/Time: 03/29/2024 19:59 Procedure: US ABDOMEN LIMITED Ordering Provider: HOPE MICHAEL Reason For Exam: RUQ abdominal pain, no prior imaging INDICATION: 29-year-old female; right upper quadrant abdominal pain. VIEWS: Multiple grayscale sonographic images were obtained of the abdomen targeted to the right upper quadrant by the medical lab technologist with color and Doppler flow imaging. COMPARISON: Report from the [facility] RIGHT upper quadrant ultrasound 02/14/2024 (no images) FINDINGS: The aorta measures 1.9 cm proximally and 1.5 cm mid and 1.4 cm distal. IVC portions visualized are normal. The right kidney measures 9.6 x 4.6 x 4.5 cm. There is no hydronephrosis. The liver measures 15.1 cm in length. There is no discrete mass. The gallbladder wall thickness measures 3.3 mm, within normal limits. Gallstones are present within the gallbladder lumen. The gallbladder is not well-distended which limits complete evaluation. The sonographic Porter's sign provided as positive, nonspecific. There is no fluid surrounding the gallbladder. The pancreatic duct measures 2 mm. The portions the pancreas visualized are within normal limits. The pancreatic head and tail are obscured due to overlying bowel gas. There is fatty infiltration of the liver without a discrete mass. [facility] RADIOLOGY SYSTEM Tayla Shrestha MD - 03/29/2024 [facility] 1995 [id number] Exam Date/Time: 03/29/2024 19:59 Procedure: US ABDOMEN LIMITED Ordering Provider: HOPE MICHAEL Reason For Exam: RUQ abdominal pain, no prior imaging INDICATION: 29-year-old female; right upper quadrant abdominal pain. VIEWS: Multiple grayscale sonographic images were obtained of the abdomen targeted to the right upper quadrant by the medical lab technologist with color and Doppler flow imaging. COMPARISON: Report from the [facility] RIGHT upper quadrant ultrasound 02/14/2024 (no images) FINDINGS: The aorta measures 1.9 cm proximally and 1.5 cm mid and 1.4 cm distal. IVC portions visualized are normal. The right kidney measures 9.6 x 4.6 x 4.5 cm. There is no hydronephrosis. The liver measures 15.1 cm in length. There is no discrete mass. The gallbladder wall thickness measures 3.3 mm, within normal limits. Gallstones are present within the gallbladder lumen. The gallbladder is not well-distended which limits complete evaluation. The sonographic Porter's sign provided as positive, nonspecific. There is no fluid surrounding the gallbladder. The pancreatic duct measures 2 mm. The portions the pancreas visualized are within normal limits. The pancreatic head and tail are obscured due to overlying bowel gas. There is fatty infiltration of the liver without a discrete mass. IMPRESSION: 1. Cholelithiasis. Positive sonographic Porter's sign is nonspecific (also positive on 02/14/2024). Nuclear medicine HIDA scan may be of benefit to further evaluate for chronic versus acute cholecystitis. 2. Hepatic steatosis. Report Dictated on Electronically Signed By: Tayla Shrestha MD Electronically Signed Date/Time: 03/29/2024 9:22 PM EST [facility] Radiology Study observation (narrative) [facility] US Abdomen limitedOrdered By : Tayla Shrestha on 03-29-2024 [facility] [email or web address] Work Phone: Urinalysis complete panel (U )on 03-29-2024 Bacteria LM.HPF (Urine sed) [#/Area] Moderate Abnormal Negative /HPF [facility] Bilirubin Ql (U) Negative Negative mg/dL [facility] Clarity (U) Clear Clear [facility] Color (U) Light Yellow Lt. Yellow [facility] Epithelial cells.squamous LM.HPF (Urine sed) [#/Area] 6-10 Abnormal [facility] Glucose Ql (U) Normal Normal (<70) mg/dL [facility] Hemoglobin Ql (U) 0.03 mg/dL Abnormal Negative [facility] Interpretation and review of laboratory results Abnormal [facility] Ketones (U) [Mass/Vol] Negative Negative mg/dL [facility] Leukocyte esterase Test strip Ql (U) Negative Negative [place]/uL [facility] Mucus LM.HPF (Urine sed) [#/Area] Many Abnormal Negative /LPF [facility] Nitrite Ql (U) Negative Negative [facility] Non-Squamous Epithalial Cells, Urine 0-2 Abnormal Negative /HPF [facility] pH (U) 5.0 [pH] 5.0 - 8.0 pH [facility] Protein (U) [Mass/Vol] Negative Negative mg/dL [facility] RBC LM.HPF (Urine sed) [#/Area] 0-2 [facility] Specific gravity (U) [Rel density] 1.023 1.005 - 1.030 [facility] Trichomonas sp LM.HPF (Urine sed) [#/Area] Few (1-5) Abnormal Negative /HPF [facility] Urobilinogen (U) [Mass/Vol] Normal Normal (0-1) mg/dL [facility] WBC LM.HPF (Urine sed) [#/Area] 0-2 [facility] Basic metabolic 2000 panelon 02-14-2024 Anion gap [Moles/Vol] 12 mmol/L Normal 8-15 [facility] Comment on above: Order Comment: Speci men Type: BLOOD SPECIMENOrdering Facility: [facility] Address: [address] [place] [address] Performed By: #### 2 4325-3, 3040-3, 28860-0 ####[facility] LABORATORYCLIA [id number] [place] [address] [place] Calcium [Mass/Vol] 9.0 mg/dL Normal 8.5-10.2 [facility] Comment on above: Order Comment: Speci men Type: BLOOD SPECIMENOrdering Facility: [facility] Address: [address] [place] [address] Performed By: #### 2 4325-3, 3040-3, 35892-8 ####[facility] LABORATORYCLIA [id number] [place] [address] [place] Chloride [Moles/Vol] 103 mmol/L Normal 98-107 [facility] Comment on above: Order Comment: Speci men Type: BLOOD SPECIMENOrdering Facility: [facility] Address: [address] [place] [address] Performed By: #### 2 4325-3, 3040-3, 29034-9 ####[facility] LABORATORYCLIA [id number] [place] [address] [place] CO2 [Moles/Vol] 22 mmol/L Normal 22-30 [facility] Comment on above: Order Comment: Speci men Type: BLOOD SPECIMENOrdering Facility: [facility] Address: [address] [place] [address] Performed By: #### 2 4325-3, 3040-3, 97420-5 ####[facility] HOSPITALCLIA [id number] [place] [id number] [place] [facility] Creatinine [Mass/Vol] 1.11 mg/dL High 0.58-0.96 [facility] Comment on above: Order Comment: Speci men Type: BLOOD SPECIMENOrdering Facility: [facility] Address: [address] [place] [address] Performed By: #### 2 4325-3, 3040-3, 46311-4 ####[facility] HOSPITALIA [id number] [place] [id number] [facility] Creatinine and Glomerular filtration rate.predicted panel (S/P/Bld) 69 mL/min/1.73m??? Normal >=60 [facility] Comment on above: Order Comment: Vanessa echavarria Type: BLOOD SPECIMENOrdering Facility: [facility] Address: [address] [place] [address] Result Comment: Makayla mated Glomerular Filtration Rate (eGFR) is calculated using the 2020 CKD-EPI creatinine equation. This equation utilizes serum creatinine, sex, and age as parameters. The creatinine assay has traceable calibration to isotope dilution-mass spectrometry. Refer to KDIGO guidelines for clinical interpretation. In patients with unstable renal function, e.g. those with acute kidney injury, the eGFR may not accurately reflect actual GFR. Performed By: #### 2 4325-3, 3040-3, 37472-3 ####[facility] LABORATORYIA [id number] [place] [id number] [place] Glucose [Mass/Vol] 115 mg/dL High 74-99 [facility] Comment on above: Order Comment: Speci men Type: BLOOD SPECIMENOrdering Facility: [facility] Address: [address] [place] [address] Result Comment: The [place] Diabetes Association (ADA) provides guidance for cutoff values for fasting glucose and random glucose. The ADA defines fasting as no caloric intake for at least 8 hours. Fasting plasma glucose results between 100 to 125 mg/dL indicate increased risk for diabetes (prediabetes). Fasting plasma glucose results greater than or equal to 126 mg/dL meet the criteria for diagnosis of diabetes. In the absence of unequivocal hyperglycemia, results should be confirmed by repeat testing. In a patient with classic symptoms of hyperglycemia or hyperglycemic crisis, random plasma glucose results greater than or equal to 200 mg/dL meet the criteria for diagnosis of diabetes. Reference: Standards of Medical Care in Diabetes 2016, [place] Diabetes Association. Diabetes Care. 2016.39(Suppl 1). Performed By: #### 2 4325-3, 3040-3, 84925-8 ####[facility] LABORATORYCLIA [id number] [place] [address] [place] Potassium [Moles/Vol] 3.7 mmol/L Normal 3.7-5.1 [facility] Comment on above: Order Comment: Vanessa echavarria Type: BLOOD SPECIMENOrdering Facility: [facility] Address: [address] [place] [address] Performed By: #### 2 4325-3, 3040-3, 09562-9 ####[facility] LABORATORYCLIA [id number] [place] [address] [place] Sodium [Moles/Vol] 137 mmol/L Normal 136-144 [facility] Comment on above: Order Comment: Vanessa echavarria Type: BLOOD SPECIMENOrdering Facility: [facility] Address: [address] [place] [address] Performed By: #### 2 4325-3, 3040-3, 14889-3 ####[facility] LABORATORYCLIA [id number] [place] [address] [place] Urea nitrogen [Mass/Vol] 15 mg/dL Normal 7-21 [facility] Comment on above: Order Comment: Vanessa echavarria Type: BLOOD SPECIMENOrdering Facility: [facility] Address: [address] [place] [address] Performed By: #### 2 4325-3, 3040-3, 21818-4 ####[facility] LABORATORYCLIA [id number] [place] [address] [place] CBC W Auto Differential pane l (Bld)on 02-14-2024 Basophils (Bld) [#/Vol] 0.05 10*3/uL Normal <0.11 [facility] Comment on above: Order Comment: Speci men Type: BLOOD SPECIMENOrdering Facility: [facility] Address: [address] [place] [address] Performed By: #### 5 7021-8 ####[facility]ORATORYCLIA [id number] [address] [place] Basophils/100 WBC (Bld) 0.6 % Normal [facility] Comment on above: Order Comment: Speci men Type: BLOOD SPECIMENOrdering Facility: [facility] Address: [address] [place] [address] Performed By: #### 5 7021-8 ####[facility]ORATORYCLIA [id number] [address] [place] Differential cell count method Nom (Bld) Auto Normal [facility] Comment on above: Order Comment: Speci men Type: BLOOD SPECIMENOrdering Facility: [facility] Address: [address] [place] [address] Performed By: #### 5 7021-8 ####[facility] LABORATORYCLIA [id number] [address] [place] Eosinophils (Bld) [#/Vol] 0.20 10*3/uL Normal <0.46 [facility] Comment on above: Order Comment: Speci men Type: BLOOD SPECIMENOrdering Facility: [facility] Address: [address] [place] [address] Performed By: #### 5 7021-8 ####[facility]ORATORYCLIA [id number] [address] [place] Eosinophils/100 WBC (Bld) 2.6 % Normal [facility] Comment on above: Order Comment: Speci men Type: BLOOD SPECIMENOrdering Facility: [facility] Address: [address] [place] [address] Performed By: #### 5 7021-8 ####[facility]ORATORYCLIA [id number] [address] [place] Erythrocyte distribution width (RBC) [Ratio] 15.0 % Normal 11.5-15.0 [facility] Comment on above: Order Comment: Speci men Type: BLOOD SPECIMENOrdering Facility: [facility] Address: [address] [place] [address] Performed By: #### 5 7021-8 ####[facility] LABORATORYCLIA [id number] [address] [place] Hematocrit (Bld) [Volume fraction] 36.8 % Normal 36.0-46.0 [facility] Comment on above: Order Comment: Speci men Type: BLOOD SPECIMENOrdering Facility: [facility] Address: [address] [place] [address] Performed By: #### 5 7021-8 ####[facility] LABORATORYCLIA [id number] [address] [place] Hemoglobin (Bld) [Mass/Vol] 11.4 g/dL Low 11.5-15.5 [facility] Comment on above: Order Comment: Speci men Type: BLOOD SPECIMENOrdering Facility: [facility] Address: [address] [place] [address] Performed By: #### 5 7021-8 ####[facility] LABORATORYCLIA [id number] [address] [place] Immature granulocytes (Bld) [#/Vol] 10*3/uL Normal <0.10 [facility] Comment on above: Order Comment: Speci men Type: BLOOD SPECIMENOrdering Facility: [facility] Address: [address] [place] [address] Performed By: #### 5 7021-8 ####[facility] LABORATORYCLIA [id number] [address] Immature granulocytes/100 WBC (Bld) 0.1 % Normal [facility] Comment on above: Order Comment: Speci men Type: BLOOD SPECIMENOrdering Facility: [facility] Address: [address] [place] [address] Performed By: #### 5 7021-8 ####[facility] LABORATORYCLIA [id number] [address] STATES OF [facility] Lymphocytes (Bld) [#/Vol] 2.45 10*3/uL Normal 1.00-4.00 [facility] Comment on above: Order Comment: Speci men Type: BLOOD SPECIMENOrdering Facility: [facility] Address: [address] [place] [address] Performed By: #### 5 7021-8 ####[facility] LABORATORYCLIA [id number] [address] Lymphocytes/100 WBC (Bld) 31.7 % Normal [facility] Comment on above: Order Comment: Speci men Type: BLOOD SPECIMENOrdering Facility: [facility] Address: [address] [place] [address] Performed By: #### 5 7021-8 ####[facility] LABORATORYCLIA [id number] [address] STATES [facility] MCH (RBC) [Entitic mass] 26.5 pg Normal 26.0-34.0 [facility] Comment on above: Order Comment: Speci men Type: BLOOD SPECIMENOrdering Facility: [facility] Address: [address] [place] [address] Performed By: #### 5 7021-8 ####[facility] LABORATORYCLIA [id number] [address] STATES OF [facility] MCHC (RBC) [Mass/Vol] 31.0 g/dL Normal 30.5-36.0 [facility] Comment on above: Order Comment: Speci men Type: BLOOD SPECIMENOrdering Facility: [facility] Address: [address] [place] [address] Performed By: #### 5 7021-8 ####[facility] LABORATORYCLIA [id number] [address] MCV (RBC) [Entitic vol] 85.4 fL Normal 80.0-100.0 [facility] Comment on above: Order Comment: Speci men Type: BLOOD SPECIMENOrdering Facility: [facility] Address: [address] [place] [address] Performed By: #### 5 7021-8 ####[facility] LABORATORYCLIA [id number] [place] [address] [place] Monocytes (Bld) [#/Vol] 0.61 10*3/uL Normal <0.87 [facility] Comment on above: Order Comment: Speci men Type: BLOOD SPECIMENOrdering Facility: [facility] Address: [address] [place] [address] Performed By: #### 5 7021-8 ####[facility]ORATORYCLIA [id number] [address] [place] Monocytes/100 WBC (Bld) 7.9 % Normal [facility] Comment on above: Order Comment: Speci men Type: BLOOD SPECIMENOrdering Facility: [facility] Address: [address] [place] [address] Performed By: #### 5 7021-8 ####[facility] LABORATORYCLIA [id number] [place] [address] [place] Neutrophils (Bld) [#/Vol] 4.40 10*3/uL Normal 1.45-7.50 [facility] Comment on above: Order Comment: Speci men Type: BLOOD SPECIMENOrdering Facility: [facility] Address: [address] [place] [address] Performed By: #### 5 7021-8 ####[facility]ORATORYCLIA [id number] [address] [place] Neutrophils/100 WBC (Bld) 57.1 % Normal [facility] Comment on above: Order Comment: Speci men Type: BLOOD SPECIMENOrdering Facility: [facility] Address: [address] [place] [address] Performed By: #### 5 7021-8 ####[facility]ORATORYCLIA [id number] [place] [address] [place] Nucleated RBC (Bld) [#/Vol] 10*3/uL Normal <0.01 [facility] Comment on above: Order Comment: Speci men Type: BLOOD SPECIMENOrdering Facility: [facility] Address: [address] [place] [address] Performed By: #### 5 7021-8 ####[facility] LABORATORYCLIA [id number] [address] [place] Nucleated RBC/100 WBC (Bld) [Ratio] 0.0 /100 WBC Normal [facility] Comment on above: Order Comment: Speci men Type: BLOOD SPECIMENOrdering Facility: [facility] Address: [address] [place] [address] Performed By: #### 5 7021-8 ####[facility] LABORATORYCLIA [id number] [address] [place] Platelet mean volume (Bld) [Entitic vol] 10.5 fL Normal 9.0-12.7 [facility] Comment on above: Order Comment: Speci men Type: BLOOD SPECIMENOrdering Facility: [facility] Address: [address] [place] [address] Performed By: #### 5 7021-8 ####[facility] LABORATORYCLIA [id number] [address] [place] Platelets (Bld) [#/Vol] 323 10*3/uL Normal 150-400 [facility] Comment on above: Order Comment: Speci men Type: BLOOD SPECIMENOrdering Facility: [facility] Address: [address] [place] [address] Performed By: #### 5 7021-8 ####[facility] LABORATORYCLIA [id number] [address] [place] RBC (Bld) [#/Vol] 4.31 10*6/uL Normal 3.90-5.20 [facility] Comment on above: Order Comment: Speci men Type: BLOOD SPECIMENOrdering Facility: [facility] Address: [address] [place] [address] Performed By: #### 5 7021-8 ####[facility]ORATORYCLIA [id number] [address] OF [facility] WBC (Bld) [#/Vol] 7.72 10*3/uL Normal 3.70-11.00 [facility] Comment on above: Order Comment: Speci men Type: BLOOD SPECIMENOrdering Facility: [facility] Address: [address] [place] [address] Performed By: #### 5 7021-8 ####[facility] LABORATORYCLIA [id number] [place] [id number] [facility] ED NOTEon 02-14-2024 ED NOTE HNO ID: [id number] Author: DONAVAN ZAVALA CT Service: ? Author Type: Registered Nurse Type: ED Notes Filed: 02/14/2024 05:48 Note Text: No answer for re vitals @ 0459 Normal [facility] ED Triage Noteon 02-14-2024 ED Triage Note HNO ID: [id number] Author: KIM MCGRAW APRN.CNP Service: Emergency Medicine Author Type: Nurse Practitioner Type: ED Triage Notes Filed: 02/14/2024 02:23 Note Text: ED TRIAGE PROVIDER NOTE Patient Name: Agueda Lewis Service Date: 02/14/24 BRIEF HPI: This is a 28 year old female who presents to the ED with: Right upper quadrant pain. States that she has known gallstones. Started 1 hour ago. BRIEF EXAM: NAD Awake and Alert Non labored breathing No focal neurological deficits INITIAL WORKUP AND DECISION MAKING: Orders Placed This Encounter US ABD RIGHT UPPER QUADRANT BASIC METABOLIC PNL CBC + DIFF LIPASE BLD Hepatic Function Panel SIGNATURE: Kim Mcgraw APRN.CNP Normal [facility] Hepatic function 2000 panelo n 02-14-2024 Albumin [Mass/Vol] 3.9 g/dL Normal 3.9-4.9 [facility] Comment on above: Order Comment: Speci men Type: BLOOD SPECIMENOrdering Facility: [facility] Address: [address] [place] [address] Performed By: #### 2 4325-3, 3040-3, 20074-5 ####[facility] LABORATORYCLIA [id number] [place], [place] [id number] [place] [address] STATES OF [facility] ALP [Catalytic activity/Vol] 87 U/L Normal 34-123 [facility] Comment on above: Order Comment: Speci men Type: BLOOD SPECIMENOrdering Facility: [facility] Address: [address] [place] [address] Performed By: #### 2 4325-3, 3040-3, 73437-1 ####[facility] LABORATORYCLIA [id number] [place] [address] [place] [facility] ALT With P-5'-P [Catalytic activity/Vol] 13 U/L Normal 7-38 [facility] Comment on above: Order Comment: Speci men Type: BLOOD SPECIMENOrdering Facility: [facility] Address: [address] [place] [address] Performed By: #### 2 4325-3, 3040-3, 93620-2 ####[facility] LABORATORYCLIA [id number] [address] OF [facility] AST With P-5'-P [Catalytic activity/Vol] 17 U/L Normal 13-35 [facility] Comment on above: Order Comment: Speci men Type: BLOOD SPECIMENOrdering Facility: [facility] Address: [address] [place] [address] Performed By: #### 2 4325-3, 3040-3, 54405-4 ####[facility] LABORATORYCLIA [id number] [address] [place] Bilirubin [Mass/Vol] mg/dL Low 0.2-1.3 [facility] Comment on above: Order Comment: Speci men Type: BLOOD SPECIMENOrdering Facility: [facility] Address: [address] [place] [address] Performed By: #### 2 4325-3, 3040-3, 49932-2 ####[facility] LABORATORYCLIA [id number] [place], [place] [id number] [place] [address] OF [place] Bilirubin.conjugated [Mass/Vol] mg/dL Normal <0.2 [facility] Comment on above: Order Comment: Speci men Type: BLOOD SPECIMENOrdering Facility: [facility] Address: [address] [place] [address] Performed By: #### 2 4325-3, 3040-3, 07914-1 ####[facility]ITALCLIA [id number] [place] [id number] [place] Protein [Mass/Vol] 6.9 g/dL Normal 6.3-8.0 [facility] Comment on above: Order Comment: Speci men Type: BLOOD SPECIMENOrdering Facility: [facility] Address: [address] [place] [address] Performed By: #### 2 4325-3, 3040-3, 93338-0 ####[facility] LABORATORYCLIA [id number] [place] [id number] [place] Lipase SerPl-cCncon 02-14-20 24 Lipase [Catalytic activity/Vol] 46 U/L Normal 16-61 [facility] Comment on above: Order Comment: Speci men Type: BLOOD SPECIMENOrdering Facility: [facility] Address: [address] [place] [address] Performed By: #### 2 4325-3, 3040-3, 64023-7 ####[facility] LABORATORYCLIA [id number] [place] [id number] [place] US ABD RIGHT UPPER QUADRANTo n 02-14-2024 US ABD RIGHT UPPER QUADRANT * * *Final Report* * * DATE OF EXAM: Feb 14 2024 2:48AM AKU 1032 - US ABD RIGHT UPPER QUADRANT / PROCEDURE REASON: Cholelithiasis * * * * Physician Interpretation * * * * EXAMINATION: RIGHT UPPER QUADRANT ULTRASOUND CLINICAL HISTORY: RIGHT upper quadrant abdominal pain TECHNIQUE: Sonography of the right upper quadrant was performed. Images were obtained and stored in a permanent archive. MQ: [id number] COMPARISON: RIGHT upper quadrant ultrasound 05/08/2023. RESULT: Pancreas: Unremarkable to the extent visualized Portions obscured: tail Liver: Echotexture: Homogeneous Echogenicity: Normal Surface contour: Smooth Lesions: None. Biliary: No intrahepatic biliary duct dilation. CBD: 0.2 cm at the hilum. Gallbladder: Distended -Contents: Multiple stones present -Wall: Normal -Other: Trace pericholecystic fluid. Positive sonographic Porter sign. Right Kidney: No hydronephrosis. IMPRESSION: Cholelithiasis with trace pericholecystic fluid and a positive sonographic Porter sign suggestive of acute cholecystitis. Special Education Superintendent: AMIE Transcribe Date/Time: Feb 14 2024 4:42A Dictated by : TIMUR PRADO MD This examination was interpreted and the report reviewed and electronically signed by: TIMUR PRADO MD on Feb 14 2024 4:49AM EST [id number] Normal [facility] 01-16-2024 CNPN Telephone (GENSWS) -- AGUEDA LEWIS ([id number]) 1995 F Date Time Provider Department 01/16/24 MARY JASSO During your visit today, we recorded the following information about you: Janeen John 01/16/2024 3:[address] Jasso's office note The patient wishes to proceed with surgery but I told her to schedule for stress ECHO prior to consideration for surgery Patient acknowledges above. Patient to complete 02/26/2024 ECHO test prior to discussing dates for gall bladder surgery Janeen John Diamond Mounter Janeen John 02/27/2024 8:40 AM Signed Patient had no showed her echo stress test yesterday 02/26/2024 Patient is aware she is not able to proceed with scheduling surgery until test has been completed and she has been cleared Janeen John Diamond Mounter ' Janeen John 02/27/2024 8:40 AM Signed Mychart sent to call and rescheduling testing needing for clearance prior to proceeding with surgery Janeen John Diamond Mounter Allergies As of Date: 01/16/2024 (No Known Allergies) Date Reviewed: 12/29/2023 Reviewed by: Fidelina Downing RN - Fully Assessed Reason for Visit: Patient Update [1234] Prescriptions as of 03/27/2024 - sertraline HCl (SERTRALINE ORAL) Take 125 mg by mouth once daily. - pantoprazole DR (PROTONIX) 40 mg tablet Take 1 tablet by mouth once daily. - trazodone HCl (TRAZODONE ORAL) Take by mouth. - escitalopram oxalate (LEXAPRO) 10 mg tablet Take 10 mg by mouth once daily. - albuterol HFA (VENTOLIN HFA) 90 mcg/actuation inhaler Inhale 2 Puffs as instructed every 4 hours as needed for wheezing/shortness of breath. - ferrous sulfate (IRON) 325 mg (65 mg iron) tablet Take 325 mg by mouth daily with breakfast. Problem List As Of Date 01/16/2024 Noted Resolved Mother with Hypertrophic cardiomyopathy [I42.2] 10/28/2011 Visual changes [H53.9] 10/28/2011 02/24/2016 Chlamydia infection [A74.9] 07/15/2014 Insufficient care [O09.30] 02/05/2015 05/08/2015 Class 3 severe obesity due to excess calories w*08/14/2023 Family history of hypertrophic cardiomyopathy [*08/14/2023 Gall stones [K80.20] 08/14/2023 Chest pain [R07.9] 08/14/2023 Encounter Status:Closed by MARCELLO PATRICK on 03/27/[address] [facility] JOEOVelsi 12-29-2023 CNOV Office Visit (SWS ) -- AGUEDA LEWIS ([id number]) 1995 F Date Time Provider Department 12/29/23 10:30 AM MARY JASSO During your visit today, we recorded the following information about you: Temperature Pulse Blood pressure Weight 96.9 degrees 117/minute 108/66 121.5 kg Height 1.803 m Mary Jasso MD 12/29/2023 8:35 PM Signed HISTORY AND PHYSICAL Agueda Lewis 1995 REFERRING PHYSICIAN: Self CHIEF COMPLAINT: ER follow-up, abdominal pain. HPI: The patient is a 28 year old female presents with epigastric and RUQ abdominal pain She states that the pain is sharp and stabbing and radiates to the back. She has known cholelithiasis She notes nausea and emesis and occasional loose stools. She denies previous abdominal surgery. She had been seen by a surgeon at [facility] who recommended cardiology consultation The patient does complain of occasional chest pain. She was seen by a customer solutions specialist who recommended stress echocardiogram prior to any surgery. Patient did not follow through with this PAST MEDICAL HISTORY 07/15/2014: Chlamydia infection No date: Cholelithiasis 12/18/2003: PM - PAST MEDICAL HISTORY OF Comment: normal color vision age 4: PMH - PAST MEDICAL HISTORY OF Comment: fracture right elbow age 4: [facility] - PAST MEDICAL HISTORY OF Comment: fracture right wrist No date: [facility] - PAST MEDICAL HISTORY OF Comment: bronchial infection 03/22/2015: Trichomonal infection PAST SURGICAL HISTORY No date: ADENOIDECTOMY PRIMARY No date: PAST SURGICAL HISTORY OF Comment: root canal Current Outpatient Medications Medication Sig sertraline HCl (SERTRALINE ORAL) Take 125 mg by mouth once daily. pantoprazole DR (PROTONIX) 40 mg tablet Take 1 tablet by mouth once daily. ferrous sulfate (IRON) 325 mg (65 mg iron) tablet Take 325 mg by mouth daily with breakfast. trazodone HCl (TRAZODONE ORAL) Take by mouth. escitalopram oxalate (LEXAPRO) 10 mg tablet Take 10 mg by mouth once daily. albuterol HFA (VENTOLIN HFA) 90 mcg/actuation inhaler Inhale 2 Puffs as instructed every 4 hours as needed for wheezing/shortness of breath. No current facility-administered medications for this visit. ALLERGIES: Patient has no known allergies. PERSONAL HISTORY: Social History Tobacco Use Smoking status: Never Smokeless tobacco: Never Tobacco comments: vapes without nicotine Vaping Use Vaping Use: current everyday user Substances: Flavoring Devices: [employer] Substance Use Topics Alcohol use: No Drug use: No FAMILY HISTORY Problem Relation Age of Onset Diabetes Maternal Grandmother other (sleep apnea) Maternal Grandmother Asthma Father Heart Mother hypertrophic cardiomyopathy The review of systems data was entered by the nurse and reviewed by ri Nursing Notes: Fidelina Downing RN 12/29/2023 11:33 AM Signed REVIEW OF SYSTEMS: General: The patient NOTES fatigue, denies weight loss, denies weight gain, NOTES feeling hot, and denies feelings of cold. Eyes: The patient denies glaucoma, denies eye injury/surgery, wears glasses or contacts. Ear/Nose/Throat: The patient denies allergies, denies hayfever, denies ear infections, and denies bloody noses. Cardiovascular: The patient NOTES chest pain, denies heart disease, denies high blood pressure,denies cardiac stent, denies prior heart attack, denies irregular heart beat, denies high cholesterol, denies poor circulation, denies heart failure, other cardiac issues, NOTES claudication, denies cold feet, denies peripheral arterial stent. Respiratory: The patient denies tuberculosis, denies pneumonia, denies frequent cough, denies pulmonary embolism, denies shortness of breath, and denies coughing up blood. Gastrointestinal: The patient denies difficulty swallowing, NOTES acid reflux, denies ulcers, denies vomiting, denies jaundice/hepatitis, NOTES gallbladder problems, denies black or tarry stools, denies hemorrhoids, denies bleeding from rectum, denies diverticulitis, denies constipation, denies diarrhea, denies loss of stool control, and denies hernias. Kidney/Bladder: The patient denies kidney stones, denies urine infections, and denies bloody urine. Skin: The patient denies a history of skin cancer, denies bleeding/changing moles, and denies a history of skin rash. Neurologic: The patient denies a history of epilepsy/convulsions, NOTES headaches, denies head/spinal injuries, and denies stroke/TIA. Psychiatric: The patient NOTES psychiatric medications, NOTES depression, and denies voices, denies substance abuse. Endocrine: The patient denies thyroid disorders, denies diabetes, and denies hormonal problems. Hematologic: The patient denies a history of bruising, denies bleeding, and NOTES anemia, denies blood clots. Infections: The patient denies a history of measles and mumps, denies (more content not included)... Normal [facility] CBC W/Diff, Automatedon 08-0 Absolute Lymph 2.01 X10 3/uL Normal 0.83-4.51 [facility] Comment on above: Performed By: #### L 501.2450, L500.4050, L100.0100 #### [facility] [address] [place], [address] Absolute Neut 6.6 X10 3/uL Normal 2.0-7.7 [facility] Comment on above: Performed By: #### L 501.2450, L500.4050, L100.0100 #### [facility] [address] [place], [address] Basophils/100 WBC (Bld) 0.6 % Normal 0-1 [facility] Comment on above: Performed By: #### L 501.2450, L500.4050, L100.0100 #### [facility] [address] [place], [address] Eosinophils/100 WBC (Bld) 3.0 % Normal 0-5 [facility] Comment on above: Performed By: #### L 501.2450, L500.4050, L100.0100 #### [facility] [address] [place], [address] Erythrocyte distribution width (RBC) [Ratio] 15.9 % High 11.6-14.6 [facility] Comment on above: Performed By: #### L 501.2450, L500.4050, L100.0100 #### [facility] [address] [place], [address] Hematocrit (Bld) [Volume fraction] 38.2 % Normal 37-47 [facility] Comment on above: Performed By: #### L 501.2450, L500.4050, L100.0100 #### [facility] [address] [place], [address] Hemoglobin (Bld) [Mass/Vol] 11.7 g/dL Low 12.0-15.0 [facility] Comment on above: Performed By: #### L 501.2450, L500.4050, L100.0100 #### [facility] [address] [place], [address] IG% 0.200 Normal 0.0-0.9 [facility] Comment on above: Result Comment: IG% - Immature Granulocytes (promyelocytes, myelocytes and metamyelocytes) > 1% indicates that a LEFT SHIFT is Present. Performed By: #### L 501.2450, L500.4050, L100.0100 #### [facility] [address] [place], [address] Lymphocytes/100 WBC (Bld) 20.3 % Normal 19-41 [facility] Comment on above: Performed By: #### L 501.2450, L500.4050, L100.0100 #### [facility] [address] [place], [address] MCH (RBC) [Entitic mass] 25.4 pg Low 27.0-32.0 [facility] Comment on above: Performed By: #### L 501.2450, L500.4050, L100.0100 #### [facility] [address] [place], [address] MCHC (RBC) [Mass/Vol] 30.6 g/dL Low 32-36 [facility] Comment on above: Performed By: #### L 501.2450, L500.4050, L100.0100 #### [facility] [address] [place], [address] MCV (RBC) [Entitic vol] 83.0 fL Normal 81-99 [facility] Comment on above: Performed By: #### L 501.2450, L500.4050, L100.0100 #### [facility] [address] [place], [address] Monocytes/100 WBC (Bld) 9.0 % Normal 0-10 [facility] Comment on above: Performed By: #### L 501.2450, L500.4050, L100.0100 #### [facility] [address] [place], [address] Neutrophils/100 WBC (Bld) 66.9 % Normal 47-70 [facility] Comment on above: Performed By: #### L 501.2450, L500.4050, L100.0100 #### [facility] [address] [place], [address] Nucleated RBC (Bld) [#/Vol] 0 10*3/uL Normal 0-5 [facility] Comment on above: Performed By: #### L 501.2450, L500.4050, L100.0100 #### [facility] [address] [place], [address] Platelet mean volume (Bld) [Entitic vol] 11.0 fL Normal 6.2-12.0 [facility] Comment on above: Performed By: #### L 501.2450, L500.4050, L100.0100 #### [facility] [address] [place], [address] Platelets (Bld) [#/Vol] 311 10*3/uL Normal 150-450 [facility] Comment on above: Performed By: #### L 501.2450, L500.4050, L100.0100 #### [facility] [address] [place], [address] RBC (Bld) [#/Vol] 4.60 10*6/uL Normal 4.2-5.4 [facility] Comment on above: Performed By: #### L 501.2450, L500.4050, L100.0100 #### [facility] [address] [place], [address] RDW SD 48.6 fl High 35.1-43.9 [facility] Comment on above: Performed By: #### L 501.2450, L500.4050, L100.0100 #### [facility] [address] [place], [address] WBC (Bld) [#/Vol] 9.9 10*3/uL Normal 4.4-11.0 [facility] Comment on above: Performed By: #### L 501.2450, L500.4050, L100.0100 #### [facility] [address] [place], [address] Comprehensive Metabolic Prof [facility] 12-24-2023 Albumin [Mass/Vol] 3.4 g/dL Normal 3.2-5.0 [facility] Comment on above: Performed By: #### L 501.2450, L500.4050, L100.0100 #### [facility] [address] [place], [address] Albumin/Globulin [Mass ratio] 0.8 {ratio} Low 0.9-2.4 [facility] Comment on above: Performed By: #### L 501.2450, L500.4050, L100.0100 #### [facility] [address] [place], [address] ALK P 80 U/L Normal 45-117 [facility] Comment on above: Performed By: #### L 501.2450, L500.4050, L100.0100 #### [facility] [address] [place], [address] ALT [Catalytic activity/Vol] 15 U/L Normal 13-56 [facility] Comment on above: Performed By: #### L 501.2450, L500.4050, L100.0100 #### [facility] [address] [place], [address] AST [Catalytic activity/Vol] 13 U/L Low 15-37 [facility] Comment on above: Performed By: #### L 501.2450, L500.4050, L100.0100 #### [facility] [address] [place], [address] Bilirubin [Mass/Vol] 0.20 mg/dL Normal 0.20-1.00 [facility] Comment on above: Result Comment: For patients on eltrombopag therapy, use of [facility] TBIL is not recommended. Performed By: #### L 501.2450, L500.4050, L100.0100 #### [facility] [address] [place], [address] BUN/CRE 7.5 RATIO Low 10-20 [facility] Comment on above: Performed By: #### L 501.2450, L500.4050, L100.0100 #### [facility] [address] [place], [address] CA,Total 9.0 mg/dL Normal 8.5-10.1 [facility] Comment on above: Performed By: #### L 501.2450, L500.4050, L100.0100 #### [facility] [address] [place], [address] Chloride [Moles/Vol] 106 mmol/L Normal 98-107 [facility] Comment on above: Performed By: #### L 501.2450, L500.4050, L100.0100 #### [facility] [address] [place], [address] CO2 [Moles/Vol] 28.0 mmol/L Normal 21.0-32.0 [facility] Comment on above: Performed By: #### L 501.2450, L500.4050, L100.0100 #### [facility] [address] [place], [address] Creatinine [Mass/Vol] 1.06 mg/dL High 0.55-1.02 [facility] Comment on above: Result Comment: The validity of the calculated GFR GFRAA in patients over 70 years has not been determined. Clinical correlation is essential. Performed By: #### L 501.2450, L500.4050, L100.0100 #### [facility] [address] [place], [address] ECRCL 115.29 ml/min Normal [facility] Comment on above: Performed By: #### L 501.2450, L500.4050, L100.0100 #### [facility] [address] [place], [address] EST GFR - AA 78 mL/min Normal >60 [facility] Comment on above: Result Comment: Afri can [place] GFR Calc Performed By: #### L 501.2450, L500.4050, L100.0100 #### [facility] [address] [place], [address] GAP 3 Low 5-15 [facility] Comment on above: Performed By: #### L 501.2450, L500.4050, L100.0100 #### [facility] [address] [place], [address] GFR/1.73 sq M.predicted among non-blacks MDRD (S/P/Bld) [Vol rate/Area] 65 mL/min/{1.73_m2} Normal >60 [facility] Comment on above: Result Comment: Non- GFR Calc Performed By: #### L 501.2450, L500.4050, L100.0100 #### [facility] [address] [place], [address] Globulin (S) [Mass/Vol] 4.1 g/dL Normal 2.2-4.2 [facility] Comment on above: Performed By: #### L 501.2450, L500.4050, L100.0100 #### [facility] [address] [place], [address] Glucose [Mass/Vol] 112 mg/dL High 74-106 [facility] Comment on above: Result Comment: Fast ing Glucose result from 100 to 125 mg/dL suggests IMPAIRED HOMEOSTASIS per A.D.A. criteria. Performed By: #### L 501.2450, L500.4050, L100.0100 #### [facility] [address] [place], [address] Potassium [Moles/Vol] 3.7 mmol/L Normal 3.5-5.1 [facility] Comment on above: Performed By: #### L 501.2450, L500.4050, L100.0100 #### [facility] [address] [place], [address] Sodium [Moles/Vol] 137 mmol/L Normal 136-145 [facility] Comment on above: Performed By: #### L 501.2450, L500.4050, L100.0100 #### [facility] [address] [place], [address] T PROT 7.5 g/dL Normal 6.4-8.2 [facility] Comment on above: Performed By: #### L 501.2450, L500.4050, L100.0100 #### [facility] [address] [place], [address] Urea nitrogen [Mass/Vol] 8 mg/dL Normal 7-18 [facility] Comment on above: Performed By: #### L 501.2450, L500.4050, L100.0100 #### [facility] [address] [place], [address] Emergency Department Summary on 12-24-2023 Emergency Department Summary [facility] Medical Records Department [address] [place] [address] Emergency Department Summary 12/24/23 MR#: [id number] Acct: [id number] Name: AGUEDA LEWIS Rep #: [id number] : 1995 28 From: Timur Sands MD PCP: Care Physician,No Primary Status:REG ER Location: ED HPI HPI - GI History of Present Illness Chief Complaint: Abd Pain Informant: patient and spouse/S.O. Narrative Narrative: 28-year-old female presents with 1-2 hours worth of right upper quadrant pain and nausea/vomiting, presenting to the ER around 130-2 AM, when she ate dinner she had a cheeseburger with mayonnaise on it and this started several hours later. She states she has known gallstones. She has had intermittent pain similar to this in the past 6 months and was seeing a surgeon in [place] and then saw Dr. Flores here after moving here, she had an EGD about a week ago or more, and states she is to follow-up but this is similar pain just worse. No fevers, chills, jaundice, diffuse itching. Recently normal bowel movements. PFSH PFS Medical History Wears contact lenses Depression Anxiety Easy bruising Back pain Gastric reflux Vapes nicotine containing substance History of stress test Anemia Home Medications ???Medication ???Instructions ???Recorded ???Last Taken ???Type quetiapine 25 mg tablet 25 mg PO QHS 11/27/23 Unknown History sertraline 100 mg tablet 100 mg PO DAILY 11/27/23 Unknown History pantoprazole 20 mg tablet,delayed 20 mg PO DAILY #30 tabs 12/01/23 12/14/23 Rx release Allergy/AdvReac Type Severity Reaction Status Date / Time No Known Allergies Allergy Verified 12/24/23 01:43 Family History Grandmother Diabetes Mother Heart disease Surgical History H/O adenoidectomy Social History Smoking Status: Current every day smoker tobacco type: e-cigarettes ROS ROS ED Constitutional Constitutional ED: Denies chills or fever(s) Eyes Eyes: Denies change in vision or diplopia ENT ENT ED: Denies rhinorrhea or sore throat Cardiovascular Cardiovascular: Denies chest pain or palpitations Respiratory/Chest Respiratory/Chest: Denies cough or dyspnea Gastrointestinal Gastrointestinal: Reports abdominal pain, nausea and vomiting; Denies diarrhea Genitourinary Genitourinary ED: Denies dysuria or hematuria Musculoskeletal Musculoskeletal: Denies back pain or neck pain Integumentary Denies abscess or rash Neurologic Neurologic: Denies headache(s), paresthesias or weakness Psychiatric Psychiatric: Denies suicidal thoughts EXAM Physical Exam Const Vital Signs: 12/24/23 01:43 Temperature 97.6 F L Temperature Source Temporal Pulse Rate 73 Respiratory Rate 16 Blood Pressure 135/88 H Blood Pressure Mean 103 Pulse Ox 100 Positive well nourished and well developed General Appearance ED: well developed and NAD HEENT Reports moist mucous membranes normocephalic and atraumatic Eyes PERRL and EOMs intact bilaterally Neck full ROM and supple Resp normal respiratory effort and clear to auscultation bilaterally Cardio regular rate, regular rhythm and no murmurs GI non-distended GI Narrative: RUQ tenderness. borderline porter's. otherwise, benign and nontender throughout, including epigastrium. No rebound tenderness. Auscultation: normoactive bowel sounds Palpation: soft Back/Spine no CVA tenderness General Back: other FROM Extremity normal to inspection General Extremety ED: Negative for edema, pulses abnormal or tenderness General Extremity: Negative for edema or pulses abnormal Neuro oriented x3, CN's II-XII intact bilaterally and no sensory deficits noted Sensorium / Orientation: awake and alert Motor Exam: strength 5/5 throughout Psych mental status grossly normal and thought process normal Skin no rashes or lesions noted and no wounds MDM MDM MDM Narrative Medical decision making narrative: I reviewed some old records. Patient states she was instructed on no diet changes. When I told her about how the meal she had had multiple fatty components and could easily trigger biliary colic, she seems somewhat surprised. Reviewing her surgery visit, it appears that she was counseled on diet at that time. They performed an EGD first because she was having a lot of what sounded like stomach discomfort, it did show some mild gastritis she is on a PPI, and it seemed like the plan next was to obtain nuclear imaging which has not happened yet, she has not had a follow-up appointment yet. She presents at a time when emergent ultrasound is not available, s (more content not included)... Normal [facility] Lipaseon 12-24-2023 Lipase [Catalytic activity/Vol] 59 U/L Normal 13-75 [facility] Comment on above: Result Comment: Travis reeves note: LIPASE revised reference range effective 22. New Lipase methodology. Expected to produce lower values than the previous assay method. NEW Reference Range: 13 - 75 U/L Performed By: #### L 501.2450, L500.4050, L100.0100 #### [facility] [address] [place], [address] EGD Reporton 12-15-2023 EGD Report [facility] Medical Records Department [address] [place] [address] EGD Report MR#: [id number] Acct: [id number] Name: AGUEDA LEWIS Rep #: [id number] : 1995 28 From: Vince Flores MD PCP: Care Physician,No Primary Status:[facility] Patient Name: Agueda Lewis Procedure Date: 12/15/2023 9:32 AM Date of : 1995 Age: 28 Procedure: Upper GI endoscopy Indications: Epigastric abdominal pain, Suspected gastro-esophageal reflux disease Providers: Vince Flores MD Medicines: See the Anesthesia note for documentation of the administered medications Patient Profile: Refer to note in patient chart for documentation of history and physical. Patient has symptoms of chronic epigastric abdominal pain. Complications: No immediate complications. Estimated blood loss: Minimal. Procedure: Pre-Anesthesia Assessment: - The heart rate, respiratory rate, oxygen saturations, blood pressure, adequacy of pulmonary ventilation, and response to care were monitored throughout the procedure. After obtaining informed consent, the endoscope was passed under direct vision. Throughout the procedure, the patient's blood pressure, pulse, and oxygen saturations were monitored continuously. The Endoscope was introduced through the mouth, and advanced to the second part of duodenum. The upper GI endoscopy was accomplished without difficulty. The patient tolerated the procedure well. Scope In: 9:42:59 AM Scope Out: 10:00:40 AM Total Procedure Duration Time 0 hours 17 minutes 41 seconds Findings: Diffuse nodular mucosa was found in the duodenal bulb. Biopsies were taken with a cold forceps for histology. Estimated blood loss was minimal. Localized mildly erythematous mucosa without bleeding was found in the gastric antrum. Biopsies were taken with a cold forceps for Helicobacter pylori testing. Estimated blood loss was minimal. The Z-line was regular. Biopsies were taken with a cold forceps for histology. Estimated blood loss was minimal. The gastroesophageal flap valve was visualized endoscopically and classified as Hill Grade I (prominent fold, tight to endoscope). No biopsies or other specimens were collected for this exam. The exam was otherwise without abnormality. Impression: - Nodular mucosa in the duodenal bulb. Biopsied. - Erythematous mucosa in the antrum. Biopsied. - Z-line regular. Biopsied. - Gastroesophageal flap valve classified as Hill Grade I (prominent fold, tight to endoscope). No specimens collected. - The examination was otherwise normal. Recommendation: - Discharge patient to home (via wheelchair). - Resume previous diet today. - No aspirin, ibuprofen, naproxen, or other non-steroidal anti-inflammatory drugs for 2 days after biopsy. Procedure Code(s): --- Professional --- 43755, Esophagogastroduodenoscopy , flexible, transoral; with biopsy, single or multiple Diagnosis Code(s): --- Professional --- K31.89, Other diseases of stomach and duodenum R10.13, Epigastric pain CPT copyright 2021 [employer]. All rights reserved. The codes documented in this report are preliminary and upon dairy processing supervisor review may be revised to meet current compliance requirements. Vince Flores MD 12/15/2023 10:09:08 AM This report has been signed electronically. Number of Addenda: 0 Note Initiated On: 12/15/2023 9:32 AM 12/15/23 1009 Date Vince Flores MD Cosigner Signature: Date (if indicated) CC: Dr. Vince Flores MD; No Primary Care Physician Date Dictated: 12/15/23931 Date Transcribed: Special Education Superintendent: SHANNA Signed Normal [facility] H Pylori (initial)on H Pylori (initial) ------ Patient Age/Sex Location Account Attending Physician AGUEDA LEWIS 28/ EN [id number] Dr. Vince Flores MD Specimen: [id number] Received: 12/15/23 Status: ISHA Trinidad Num: [id number] Spec Type: IMMUNO Subm Dr: Dr. Vince Flores MD PHYSICIAN INSTITUTION [place] [address] SPECIMEN INFORMATION: Tissue Source: B- Antrum biopsy Clinical Info: Cholelithiasis, epigastric abdominal pain Specimen Number: [id number] CPT code: 23596 METHODOLOGY: Deparaffinized sections of prefer/formalin-fixed tissue or PAP/DQ stained slides are incubated with monoclonal/polyclonal antibodies/oligonucleotide probes. Localization is made via biotin free immunoperoxidase method. Appropriate controls are performed and reacted as expected. Results on target cell population are indicated in the following table: RESULTS: ANTIBODY / CLONE RESULT Block B H Pylori (polyclonal) negative These tests were developed and their performance characteristics determined by [facility]. They may not have been cleared or approved by the U.S. Food and Drug Administration. The FDA has determined that such clearance or approval is not necessary. The above immunohistochemical/dualIS H markers are ordered and reviewed by the Pathologist. INTERPRETATION: B. Antrum, biopsy: Negative for Helicobacter pylori organisms. /mr 12/18/2023 Signed (signature on file) Dr. Thanh Quinn MD 12/19/23 0914 Normal [facility] Comment on above: Performed By: #### L 501.2450, L700.6800, L500.4050, L100.0100 #### [facility] [address] [place], [address] MR/POSTOP.Norris 12-15-2023 MR/POSTOP.[facility] Medical Records Department [address] [place] [address] Anesthesia Postop Eval I 12/15/23 1012 MR#: [id number] Acct: [id number] Name: AGUEDA LEWIS Kenneth Rep #: [id number] : 1995 28 From: Law Hewitt PCP: Care Physician,No Primary Status:REG SDC Y Race: AA Location: [place] [address] Anesthesia: Postop Eval I Current Vital Signs Temperature: 97 F Pulse Rate: 66 Blood Pressure: 92/58 Respiratory Rate: 16 Pulse Ox: 98 Oxygen Delivery Method: Room Air Assessment Airway patent: Yes Spontaneous unlabored respirations: Yes Mental status: Asleep nausea: No Vomiting: No Anesthesia Complication: No Fluid Hydration Crystalloid volume administer (ml): 800 Total IV fluid infused: 800 Progress Note Anesthesia document: Postop Eval 1 completed: Yes 12/15/23 1013 Date Law Yeoswaldoernesto Signature: Date CC: Signed Normal [facility] MR/[id number] [facility]-15-2023 [facility] Medical Records Department [address] [place] [address] Anesthesia Postop Eval II 12/15/23 1305 MR#: [id number] Acct: [id number] Name: AGUEDA LEWIS Rep #: [id number] : 1995 28 From: Richie Orosco MD PCP: Care Physician,No Primary Status:[facility] Y Race: AA Location: EN Anesthesia Postop Eval I Sum Postop Eval Completion status Anesthesia document: Postop Eval 1 completed: Yes Anesthesia Postop Eval I Summary Anesthesia Postop Eval I Summary: Anesthesia Postop Eval I: Assessment Summary Airway patent Yes 12/15/23 10:13 [email or web address] Spontaneous unlabored Yes 12/15/23 10:13 [email or web address] respirations Mental status Asleep 12/15/23 10:13 [email or web address] nausea No 12/15/23 10:13 [email or web address] Vomiting No 12/15/23 10:13 [email or web address] Anesthesia Postop Eval I: Fluid Summary Crystalloid volume administer 800 12/15/23 10:13 [email or web address] (ml) Colloids volume administered ( ml) Blood Product volume administered (ml) Total IV fluid infused 800 12/15/23 10:13 [email or web address] Anesthesia Postop Eval I: Summary Notes Anesthesia Complication No 12/15/23 10:13 [email or web address] Anesthesia Complication Comment: Post-operative progress note Anesthesia: Postop Eval II Evaluation Mental status: Awake and Calm Pain Level: 0 nausea: No Vomiting: No Complications Anesthesia Complication: No 12/15/23 1306 Date Richie Orosco MD Cosigner Signature: Date CC: Signed [facility] ,Serum,hCG Quali.on 12-15-2023 HCG, SERUM QUAL Negative [facility] Comment on above: Performed By: #### L 700.6800 #### [facility] [address] [place], [address] ,Urineon 12-15-2023 Beta HCG ( test) Ql (U) [facility] Comment on above: Result Comment: Canc elled via OM: Order Changed Performed By: #### L 501.2450, L700.6800, L500.4050, L100.0100 #### [facility] [address] [place], [address] INTERNAL QC OK? [facility] Comment on above: Result Comment: Canc elled via OM: Order Changed Performed By: #### L 501.2450, L700.6800, L500.4050, L100.0100 #### [facility] [address] [place], [address] RECORD KIT LOT# [facility] Comment on above: Result Comment: Canc elled via OM: Order Changed Performed By: #### L 501.2450, L700.6800, L500.4050, L100.0100 #### [facility] [place], [address] Surgery Specimen Level Breezy 12-15-2023 Surgery Specimen Level IV Patient Age/Sex Location Account Attending Physician AGUEDA LEWIS 28/ EN [id number] Dr. Vince Flores MD Specimen: [id number] Received: 12/15/23 Status: ISHA Trinidad Num: [id number] Spec Type: EGD BIOPSY Subm Dr: Dr. Vince Flores MD HEADER OPERATION: EGD- biopsy PRE-OP DIAGNOSIS: Cholelithiasis, epigastric abdominal pain TISSUE SUBMITTED: A- Duodenum bulb nodule, B- Antrum biopsy, C- Gastroesophageal junction biopsy MICROSCOPIC DIAGNOSIS A. Duodenal bulb nodule, biopsy: A fragment of duodenal mucosa, no pathologic diagnosis. B. Antrum, biopsy: Mild gastritis. See microscopic description and comment. C. Gastroesophageal junction, biopsy: A fragment of gastroesophageal mucosa with chronic inflammation. Intestinal metaplasia (goblet cell metaplasia) not identified. See comment. KARIN/ 12/18/2023 COMMENT B. The results of immunohistochemistry for Helicobacter pylori will be reported separately ([id number]). C. Alcian blue/PAS stain with matched control is used in the evaluation of the specimen. MICROSCOPIC DESCRIPTION Slides are reviewed. B. The specimen shows fragments of gastric mucosa with chronic inflammatory cell infiltrates in the lamina propria consisting of lymphocytes and plasma cells, consistent with mild chronic gastritis. GROSS DESCRIPTION A. Received in fixative is one container labeled with the patient's name and designated Duodenum bulb nodule biopsy. The specimen consists of one irregular fragment of light clayton soft tissue that measures 0.3 x 0.2 x 0.1 cm. The specimen is totally submitted in one cassette. B. Received in fixative is one container labeled with the patient's name and designated Antrum biopsy. The specimen consists of multiple irregular fragments of light clayton soft tissue that in aggregate measure 0.8 x 0.3 x 0.1 cm. The specimen is totally submitted in one cassette. C. Received in fixative is one container labeled with the patient's name and designated GE junction biopsy. The specimen consists of one irregular fragment of light clay[place] soft tissue Patient Age/Sex Location Account Attending Physician AGUEDA LEWIS EN [id number] Dr. Vince Flores MD that measures 0.3 x 0.2 x 0.1 cm. The specimen is totally submitted in one cassette. Minerva 12/15/2023 TC:3 CPT:09440e5,03263 Patient Age/Sex Location Account Attending Physician AGUEDA LEWIS EN [id number] Dr. Vince Flores MD Signed (signature on file) Dr. Thanh Quinn MD 12/18/23 1055 Normal [facility] Comment on above: Performed By: #### P SUIV #### [facility] [address] [place], [place], [address] Surgery Visit Reporton 11-30 Surgery Visit Report [facility] [address] [place], [place] [address] OFFICE VISIT Date of Service: 12/01/23 MR#: [id number] Acct: [id number] Name: AGUEDA LEWIS Rep #: [id number] : 1995 Provider: Dr. Vince maya MD Age/Sex: 28/F Location: [facility] Status: Signed Intake Vital Signs 11/03/23 10:11 11/27/23 04:19 12/01/23 13:33 Height 5 ft 11 in 5 ft 11 in 6 ft Weight: 271 lb BMI 36.7 BP 110/79 Blood Pressure Location Rt brachial Position Sitting Respiration 18 Pulse 91 Pulse Source Monitor Temp 97.6 F L Temp Source Temporal Pulse Oximetry (%) 99 Oxygen Delivery Method room air Intake Visit Reasons: F/U ED - [facility] Chief Complaint: F/U ED- [place] Accompanied by: Friend Is patient in pain?: No Allergies No Known Allergies Allergy (Verified 12/01/23 13:34) Medications ???Medication ???Instructions ???Recorded ???Confirmed ???Type ondansetron 4 mg disintegrating 4 mg PO TID PRN nausea and 11/27/23 12/01/23 Rx tablet vomiting #21 tabs oxycodone-acetaminophen 5 mg-325 1 tab PO Q6H PRN pain 3 days #12 11/27/23 12/01/23 Rx mg tablet (Percocet) tabs quetiapine 25 mg tablet 25 mg PO QHS 11/27/23 12/01/23 History sertraline 100 mg tablet 100 mg PO DAILY 11/27/23 12/01/23 History pantoprazole 20 mg tablet,delayed 20 mg PO DAILY #30 tabs 12/01/23 12/01/23 Rx release Have you fallen in the past year?: No PFSH Medical History Heart murmur Anemia Gallstone Surgical History H/O adenoidectomy Family History (Updated 12/01/23 @ 13:33 by Sis Stevenson LPN) Grandmother Diabetes Mother Heart disease Social History Smoking Status: Current every day smoker tobacco type: e-cigarettes HPI HPI HPI: Patient is a 28-year-old female who presents for possible biliary colic. They are referred for surgical consultation from emergency medicine as she has not established a PCP. Patient states that she is recently relocated to [facility] from [facility]. She describes presence of both right upper quadrant and central upper abdominal pain. She notes that her right upper abdominal pain started 6 months ago while the more central pain started 2 to 3 days ago. She shares that the pain seems to come and go. She declares that fatty foods seem to provoke the pain but that the pain starts immediately after eating. She also denies any association with time of day. She does claim that there is 1 episode of nausea but no vomiting. She denies any associated fevers or chills. The only other trigger besides food that she has identified is that sometimes it hurts more when leaning forward. She confirms that her bowel movements have been normal. She denies any history of reflux or heartburn. Given the above symptoms patient was referred to surgery and she states flatly that they did not recommend proceeding for surgery but offered that she could consider HIDA imaging. Previous work-up has included: Right upper quadrant ultrasound was performed on 11/03/2023 patient was found to have evidence of cholelithiasis with normal wall and normal duct. Patient reveals a past medical history of a heart murmur which she states was rather an incidental finding during a workup for anemia around the time of delivery of her second child in 2017. She states that she has undergone a couple of echocardiograms through [facility] that have been reassuring. She estimates that the last such study was performed a year ago. Concerning her history of anemia she denies being told the probable cause but does state that she was prescribed iron and she is no longer carrying on with this supplementation. Patient's only past surgical history was that of an adenoidectomy. ROS General General: Yes weight change (gain); No appetite, fatigue, colon cancer, breast cancer or weakness HEENT HEENT: No difficulty swallowing, eye injury, eye surgery, swollen glands or hoarseness Endo Endocrine: No thyroid disease, diabetes mellitus, thyroid cancer, Hair loss, heat intolerance or cold intolerance Skin Skin: No rash or changing moles Musc Musculoskeletal: No back problems, arthritis, rheumatoid arthritis, gout or joint pain Cardio Cardiovascular: Yes murmur; No pacemaker, heart disease, atrial fibrillation, high blood pressure, heart attack, heart stent, palpitations, shortness of breat with exertion or chest pain Psych Psychiatric: Yes depression and anxiety; No hearing voices Resp Respiratory: No shortness of breath, No sleep apnea, No cough, No COPD, No asthma, No emphysema and No wheezing Gastro Gastrointestinal: Yes abdominal pain, Yes nausea or vomiting, (more content not included)... Normal [facility] Basic Metabolic Profile (BMP )on 11-27-2023 BUN/CRE 12.3 RATIO Normal 10-20 [facility] Comment on above: Performed By: #### L 501.2450, L700.6800, L500.4050, L100.0100 #### [facility] [address] [place], [address] CA,Total 8.8 mg/dL Normal 8.5-10.1 [facility] Comment on above: Performed By: #### L 501.2450, L700.6800, L500.4050, L100.0100 #### [facility] [address] [place], [address] Chloride [Moles/Vol] 106 mmol/L Normal 98-107 [facility] Comment on above: Performed By: #### L 501.2450, L700.6800, L500.4050, L100.0100 #### [facility] [address] [place], [address] CO2 [Moles/Vol] 26.0 mmol/L Normal 21.0-32.0 [facility] Comment on above: Performed By: #### L 501.2450, L700.6800, L500.4050, L100.0100 #### [facility] [address] [place], [address] Creatinine [Mass/Vol] 1.06 mg/dL High 0.55-1.02 [facility] Comment on above: Result Comment: The validity of the calculated GFR GFRAA in patients over 70 years has not been determined. Clinical correlation is essential. Performed By: #### L 501.2450, L700.6800, L500.4050, L100.0100 #### [facility] [address] [place], [address] EST GFR - AA 78 mL/min Normal >60 [facility] Comment on above: Result Comment: Afri can [place] GFR Calc Performed By: #### L 501.2450, L700.6800, L500.4050, L100.0100 #### [facility] [address] [place], [address] GAP 8 Normal 5-15 [facility] Comment on above: Performed By: #### L 501.2450, L700.6800, L500.4050, L100.0100 #### [facility] [address] [place], [address] GFR/1.73 sq M.predicted among non-blacks MDRD (S/P/Bld) [Vol rate/Area] 65 mL/min/{1.73_m2} Normal >60 [facility] Comment on above: Result Comment: Non- GFR Calc Performed By: #### L 501.2450, L700.6800, L500.4050, L100.0100 #### [facility] [address] [place], [address] Glucose [Mass/Vol] 120 mg/dL High 74-106 [facility] Comment on above: Result Comment: Fast ing Glucose result from 100 to 125 mg/dL suggests IMPAIRED HOMEOSTASIS per A.D.A. criteria. Performed By: #### L 501.2450, L700.6800, L500.4050, L100.0100 #### [facility] [facility] [address] [place], [address] Potassium [Moles/Vol] 3.9 mmol/L Normal 3.5-5.1 [facility] Comment on above: Performed By: #### L 501.2450, L700.6800, L500.4050, L100.0100 #### [facility] [address] [place], [address] Sodium [Moles/Vol] 140 mmol/L Normal 136-145 [facility] Comment on above: Performed By: #### L 501.2450, L700.6800, L500.4050, L100.0100 #### [facility] [address] [place], [address] Urea nitrogen [Mass/Vol] 13 mg/dL Normal 7-18 [facility] Comment on above: Performed By: #### L 501.2450, L700.6800, L500.4050, L100.0100 #### [facility] [address] [place], [address] CBC W/Diff, Automatedon 07-0 8-2023 Absolute Lymph 2.51 X10 3/uL Normal 0.83-4.51 [facility] Comment on above: Performed By: #### L 501.2450, L700.6800, L500.4050, L100.0100 #### [facility] [address] [place], [address] Absolute Neut 5.1 X10 3/uL Normal 2.0-7.7 [facility] Comment on above: Performed By: #### L 501.2450, L700.6800, L500.4050, L100.0100 #### [facility] [address] [place], [address] Basophils/100 WBC (Bld) 0.8 % Normal 0-1 [facility] Comment on above: Performed By: #### L 501.2450, L700.6800, L500.4050, L100.0100 #### [facility] [address] [place], [address] Eosinophils/100 WBC (Bld) 2.9 % Normal 0-5 [facility] Comment on above: Performed By: #### L 501.2450, L700.6800, L500.4050, L100.0100 #### [facility] [address] [place], [address] Erythrocyte distribution width (RBC) [Ratio] 15.2 % High 11.6-14.6 [facility] Comment on above: Performed By: #### L 501.2450, L700.6800, L500.4050, L100.0100 #### [facility] [address] [place], [address] Hematocrit (Bld) [Volume fraction] 38.5 % Normal 37-47 [facility] Comment on above: Performed By: #### L 501.2450, L700.6800, L500.4050, L100.0100 #### [facility] [address] [place], [address] Hemoglobin (Bld) [Mass/Vol] 11.7 g/dL Low 12.0-15.0 [facility] Comment on above: Performed By: #### L 501.2450, L700.6800, L500.4050, L100.0100 #### [facility] [address] [place], [address] IG% 0.200 Normal 0.0-0.9 [facility] Comment on above: Result Comment: IG% - Immature Granulocytes (promyelocytes, myelocytes and metamyelocytes) > 1% indicates that a LEFT SHIFT is Present. Performed By: #### L 501.2450, L700.6800, L500.4050, L100.0100 #### [facility] [address] [place], [address] Lymphocytes/100 WBC (Bld) 29.0 % Normal 19-41 [facility] Comment on above: Performed By: #### L 501.2450, L700.6800, L500.4050, L100.0100 #### [facility] [address] [place], [address] MCH (RBC) [Entitic mass] 25.2 pg Low 27.0-32.0 [facility] Comment on above: Performed By: #### L 501.2450, L700.6800, L500.4050, L100.0100 #### [facility] [address] [place], [address] MCHC (RBC) [Mass/Vol] 30.4 g/dL Low 32-36 [facility] Comment on above: Performed By: #### L 501.2450, L700.6800, L500.4050, L100.0100 #### [facility] [address] [place], [address] MCV (RBC) [Entitic vol] 82.8 fL Normal 81-99 [facility] Comment on above: Performed By: #### L 501.2450, L700.6800, L500.4050, L100.0100 #### [facility] [address] [place], [address] Monocytes/100 WBC (Bld) 8.6 % Normal 0-10 [facility] Comment on above: Performed By: #### L 501.2450, L700.6800, L500.4050, L100.0100 #### [facility] [address] [place], [address] Neutrophils/100 WBC (Bld) 58.5 % Normal 47-70 [facility] Comment on above: Performed By: #### L 501.2450, L700.6800, L500.4050, L100.0100 #### [facility] [address] [place], [address] Nucleated RBC (Bld) [#/Vol] 0 10*3/uL Normal 0-5 [facility] Comment on above: Performed By: #### L 501.2450, L700.6800, L500.4050, L100.0100 #### [facility] [address] [place], [address] Platelet mean volume (Bld) [Entitic vol] 11.1 fL Normal 6.2-12.0 [facility] Comment on above: Performed By: #### L 501.2450, L700.6800, L500.4050, L100.0100 #### [facility] [address] [place], [address] Platelets (Bld) [#/Vol] 370 10*3/uL Normal 150-450 [facility] Comment on above: Performed By: #### L 501.2450, L700.6800, L500.4050, L100.0100 #### [facility] [address] [place], [address] RBC (Bld) [#/Vol] 4.65 10*6/uL Normal 4.2-5.4 [facility] Comment on above: Performed By: #### L 501.2450, L700.6800, L500.4050, L100.0100 #### [facility] [address] [place], [address] RDW SD 45.7 fl High 35.1-43.9 [facility] Comment on above: Performed By: #### L 501.2450, L700.6800, L500.4050, L100.0100 #### [facility] [address] [place], [address] WBC (Bld) [#/Vol] 8.7 10*3/uL Normal 4.4-11.0 [facility] Comment on above: Performed By: #### L 501.2450, L700.6800, L500.4050, L100.0100 #### [facility] [address] [place], [address] Emergency Department Summary on 11-27-2023 Emergency Department Summary [facility] Records Department [address] [place] [address] Emergency Department Summary 11/27/23 MR#: [id number] Acct: [id number] Name: AGUEDA LEWIS Kenneth Rep #: [id number] : 1995 28 From: Shailesh Merritt DO PCP: Care Physician,No Primary Status:REG ER Location: ED HPI History of Present Illness Chief Complaint: Abd Pain Informant: patient and spouse/S.O. Narrative Narrative: Patient is a 28-year-old female who was seen roughly 1 month ago and ultrasound confirmed multiple gallstones. She states that last night she noticed some pain in the right upper to mid abdomen that seem to improved after she went for a walk. She states she was able to go to sleep but then awoke around 3 in the morning with similar pain. With concern this could be a flareup of her gallbladder she presents for evaluation. Patient denies any known sick contacts and states that there is no associated nausea vomiting or diarrhea associated with the pain. [facility] Medical History Heart murmur Anemia Gallstone Home Medications ???Medication ???Instructions ???Recorded ???Last Taken ???Type ondansetron 4 mg disintegrating 4 mg PO TID PRN nausea and 11/27/23 Unknown Rx tablet vomiting #21 tabs oxycodone-acetaminophen 5 mg-325 1 tab PO Q6H PRN pain 3 days #12 11/27/23 Unknown Rx mg tablet (Percocet) tabs quetiapine 25 mg tablet 25 mg PO QHS 11/27/23 Unknown History sertraline 100 mg tablet 100 mg PO DAILY 11/27/23 Unknown History Allergy/AdvReac Type Severity Reaction Status Date / Time No Known Allergies Allergy Verified 11/03/23 10:17 Surgical History (Updated 11/27/23 @ 04:22 by Zonia Hernandez) H/O adenoidectomy Social History Smoking Status: Current every day smoker tobacco type: e-cigarettes ROS ROS ED Constitutional Constitutional ED: Denies chills or fever(s) ENT ENT ED: Denies sore throat Cardiovascular Cardiovascular: Denies chest pain Respiratory/Chest Respiratory/Chest: Denies cough or dyspnea Gastrointestinal Gastrointestinal: Reports abdominal pain; Denies diarrhea, nausea or vomiting Genitourinary Genitourinary ED: Denies dysuria or hematuria Musculoskeletal Musculoskeletal: Denies back pain or myalgias Integumentary Denies rash Neurologic Neurologic: Denies headache(s) Hematologic/Lymphatic Hematologic/Lymphatic: Denies easy bleeding or easy bruising EXAM Physical Exam Const Vital Signs: 11/27/23 04:19 Temperature 97.7 F L Temperature Source Oral Pulse Rate 83 Respiratory Rate 20 H Blood Pressure 123/84 H Blood Pressure Mean 97 Pulse Ox 99 Oxygen Delivery Method Room Air Positive well nourished, well developed and obese General Appearance ED: well developed; Negative for pallor Nutritional Appearance: obese HEENT Reports moist mucous membranes HEENT Narrative: No signs of infection noted in the posterior pharynx Eyes PERRL and EOMs intact bilaterally General Eye ED: Negative for scleral icterus Neck supple Resp normal respiratory effort and clear to auscultation bilaterally Cardio regular rate and regular rhythm Rate: other Other Details: Radial and carotid pulses equal and symmetric GI non-distended and no masses GI Narrative: Abdomen is soft and nondistended with normal active bowel sounds. Patient has pain on palpation in the midepigastric and right upper quadrant region without voluntary guarding or rigidity. Negative Porter sign. No pulsatile mass or fluid wave Auscultation: normoactive bowel sounds Palpation: soft Back/Spine no CVA tenderness Extremity normal to inspection Neuro oriented x3, CN's II-XII intact bilaterally and no sensory deficits noted Sensorium / Orientation: alert Motor Exam: strength 5/5 throughout Psych mental status grossly normal Skin no rashes or lesions noted General Skin Exam: Negative for jaundice or pallor MDM MDM MDM Narrative Medical decision making narrative: Patient arrived to the ER with stable vitals and reported pain in the right upper quadrant and midepigastric region. She had an ultrasound done roughly 3 weeks ago which showed gallstones without signs of infection. Therefore differential diagnosis is for biliary colic versus acute cholecystitis versus gallstone pancreatitis versus gastritis. As she has had a recent ultrasound and has stable vitals I felt no need for emergent imaging studies. Basic blood work was obtained and it shows no elevation to her white count or left shift. Lipase is normal going against pancreatitis and liver enzymes are also normal going against cholecystitis. On reevaluation patient now has resolution of her pain after provided morphine in the ER. Therefore at this time with stable vitals and nega (more content not included)... Normal [facility] Lipaseon 11-27-2023 Lipase [Catalytic activity/Vol] 53 U/L Normal 13-75 [facility] Comment on above: Result Comment: Travis reeves note: LIPASE revised reference range effective 22. New Lipase methodology. Expected to produce lower values than the previous assay method. NEW Reference Range: 13 - 75 U/L Performed By: #### L 501.2450, L700.6800, L500.4050, L100.0100 #### [facility] [address] [place], [address] Liver Profileon 11-27-2023 Albumin [Mass/Vol] 3.3 g/dL Normal 3.2-5.0 [facility] Comment on above: Performed By: #### L 501.2450, L700.6800, L500.4050, L100.0100 #### [facility] [address] [place], [address] ALK P 85 U/L Normal 45-117 [facility] Comment on above: Performed By: #### L 501.2450, L700.6800, L500.4050, L100.0100 #### [facility] [address] [place], [address] ALT [Catalytic activity/Vol] 14 U/L Normal 13-56 [facility] Comment on above: Performed By: #### L 501.2450, L700.6800, L500.4050, L100.0100 #### [facility] [address] [place], [address] AST [Catalytic activity/Vol] 16 U/L Normal 15-37 [facility] Comment on above: Performed By: #### L 501.2450, L700.6800, L500.4050, L100.0100 #### [facility] [address] [place], [address] Bilirubin [Mass/Vol] 0.20 mg/dL Normal 0.20-1.00 [facility] Comment on above: Result Comment: For patients on eltrombopag therapy, use of Dim[facility] TBIL is not recommended. Performed By: #### L 501.2450, L700.6800, L500.4050, L100.0100 #### [facility] [address] [place], [address] Bilirubin.direct [Mass/Vol] 0.06 mg/dL Normal 0.00-0.30 [facility] Comment on above: Performed By: #### L 501.2450, L700.6800, L500.4050, L100.0100 #### [facility] [address] [place], [address] Globulin (S) [Mass/Vol] 4.0 g/dL Normal 2.2-4.2 [facility] Comment on above: Performed By: #### L 501.2450, L700.6800, L500.4050, L100.0100 #### [facility] [address] [place], [address] T PROT 7.3 g/dL Normal 6.4-8.2 [facility] Comment on above: Performed By: #### L 501.2450, L700.6800, L500.4050, L100.0100 #### [facility] [address] [place], [address] CBC W/Diff, Automatedon 06-05 25-2023 Absolute Lymph 2.37 X10 3/uL Normal 0.83-4.51 [facility] Comment on above: Performed By: #### L 501.2450, L700.6800, L500.4050, L100.0100 #### [facility] [address] [place], [address] Absolute Neut 4.1 X10 3/uL Normal 2.0-7.7 [facility] Comment on above: Performed By: #### L 501.2450, L700.6800, L500.4050, L100.0100 #### [facility] [address] [place], [address] Basophils/100 WBC (Bld) 0.9 % Normal 0-1 [facility] Comment on above: Performed By: #### L 501.2450, L700.6800, L500.4050, L100.0100 #### [facility] [address] [place], [address] Eosinophils/100 WBC (Bld) 4.2 % Normal 0-5 [facility] Comment on above: Performed By: #### L 501.2450, L700.6800, L500.4050, L100.0100 #### [facility] [address] [place], [address] Erythrocyte distribution width (RBC) [Ratio] 14.6 % Normal 11.6-14.6 [facility] Comment on above: Performed By: #### L 501.2450, L700.6800, L500.4050, L100.0100 #### [facility] [address] [place], [address] Hematocrit (Bld) [Volume fraction] 39.4 % Normal 37-47 [facility] Comment on above: Performed By: #### L 501.2450, L700.6800, L500.4050, L100.0100 #### [facility] [address] [place], [address] Hemoglobin (Bld) [Mass/Vol] 12.2 g/dL Normal 12.0-15.0 [facility] Comment on above: Performed By: #### L 501.2450, L700.6800, L500.4050, L100.0100 #### [facility] [address] [place], [address] IG% 0.300 Normal 0.0-0.9 [facility] Comment on above: Result Comment: IG% - Immature Granulocytes (promyelocytes, myelocytes and metamyelocytes) > 1% indicates that a LEFT SHIFT is Present. Performed By: #### L 501.2450, L700.6800, L500.4050, L100.0100 #### [facility] [address] [place], [address] Lymphocytes/100 WBC (Bld) 30.9 % Normal 19-41 [facility] Comment on above: Performed By: #### L 501.2450, L700.6800, L500.4050, L100.0100 #### [facility] [address] [place], [address] MCH (RBC) [Entitic mass] 24.9 pg Low 27.0-32.0 [facility] Comment on above: Performed By: #### L 501.2450, L700.6800, L500.4050, L100.0100 #### [facility] [address] [place], [address] MCHC (RBC) [Mass/Vol] 31.0 g/dL Low 32-36 [facility] Comment on above: Performed By: #### L 501.2450, L700.6800, L500.4050, L100.0100 #### [facility] [address] [place], [address] MCV (RBC) [Entitic vol] 80.4 fL Low 81-99 [facility] Comment on above: Performed By: #### L 501.2450, L700.6800, L500.4050, L100.0100 #### [facility] [address] [place], [address] Monocytes/100 WBC (Bld) 10.6 % High 0-10 [facility] Comment on above: Performed By: #### L 501.2450, L700.6800, L500.4050, L100.0100 #### [facility] [address] [place], [address] Neutrophils/100 WBC (Bld) 53.1 % Normal 47-70 [facility] Comment on above: Performed By: #### L 501.2450, L700.6800, L500.4050, L100.0100 #### [facility] [address] [place], [address] Nucleated RBC (Bld) [#/Vol] 0 10*3/uL Normal 0-5 [facility] Comment on above: Performed By: #### L 501.2450, L700.6800, L500.4050, L100.0100 #### [facility] [address] [place], [address] Platelet mean volume (Bld) [Entitic vol] 11.4 fL Normal 6.2-12.0 [facility] Comment on above: Performed By: #### L 501.2450, L700.6800, L500.4050, L100.0100 #### [facility] [address] [place], [address] Platelets (Bld) [#/Vol] 317 10*3/uL Normal 150-450 [facility] Comment on above: Performed By: #### L 501.2450, L700.6800, L500.4050, L100.0100 #### [facility] [address] [place], [address] RBC (Bld) [#/Vol] 4.90 10*6/uL Normal 4.2-5.4 [facility] Comment on above: Performed By: #### L 501.2450, L700.6800, L500.4050, L100.0100 #### [facility] [address] [place], [address] RDW SD 42.0 fl Normal 35.1-43.9 [facility] Comment on above: Performed By: #### L 501.2450, L700.6800, L500.4050, L100.0100 #### [facility] [address] [place], [address] WBC (Bld) [#/Vol] 7.7 10*3/uL Normal 4.4-11.0 [facility] Comment on above: Performed By: #### L 501.2450, L700.6800, L500.4050, L100.0100 #### [facility] [address] [place], [address] Comprehensive Metabolic Prof ilon 11-03-2023 Albumin [Mass/Vol] 3.7 g/dL Normal 3.2-5.0 [facility] Comment on above: Performed By: #### L 501.2450, L700.6800, L500.4050, L100.0100 #### [facility] [address] [place], [address] Albumin/Globulin [Mass ratio] 0.9 {ratio} Normal 0.9-2.4 [facility] Comment on above: Performed By: #### L 501.2450, L700.6800, L500.4050, L100.0100 #### [facility] [address] [place], [address] ALK P 78 U/L Normal 45-117 [facility] Comment on above: Performed By: #### L 501.2450, L700.6800, L500.4050, L100.0100 #### [facility] [address] [place], [address] ALT [Catalytic activity/Vol] 25 U/L Normal 13-56 [facility] Comment on above: Performed By: #### L 501.2450, L700.6800, L500.4050, L100.0100 #### [facility] [address] [place], [address] AST [Catalytic activity/Vol] 22 U/L Normal 15-37 [facility] Comment on above: Performed By: #### L 501.2450, L700.6800, L500.4050, L100.0100 #### [facility] [address] [place], [address] Bilirubin [Mass/Vol] 0.30 mg/dL Normal 0.20-1.00 [facility] Comment on above: Result Comment: For patients on eltrombopag therapy, use of [employer] [place] TBIL is not recommended. Performed By: #### L 501.2450, L700.6800, L500.4050, L100.0100 #### [facility] [address] [place], [address] BUN/CRE 10.9 RATIO Normal 10-20 [facility] Comment on above: Performed By: #### L 501.2450, L700.6800, L500.4050, L100.0100 #### [facility] [address] [place], [address] CA,Total 9.2 mg/dL Normal 8.5-10.1 [facility] Comment on above: Performed By: #### L 501.2450, L700.6800, L500.4050, L100.0100 #### [facility] [address] [place], [address] Chloride [Moles/Vol] 107 mmol/L Normal 98-107 [facility] Comment on above: Performed By: #### L 501.2450, L700.6800, L500.4050, L100.0100 #### [facility] [address] [place], [address] CO2 [Moles/Vol] 24.0 mmol/L Normal 21.0-32.0 [facility] Comment on above: Performed By: #### L 501.2450, L700.6800, L500.4050, L100.0100 #### [facility] [address] [place], [address] Creatinine [Mass/Vol] 1.01 mg/dL Normal 0.55-1.02 [facility] Comment on above: Result Comment: The validity of the calculated GFR GFRAA in patients over 70 years has not been determined. Clinical correlation is essential. Performed By: #### L 501.2450, L700.6800, L500.4050, L100.0100 #### [facility] [address] [place], [address] ECRCL 118.64 ml/min Normal [facility] Comment on above: Performed By: #### L 501.2450, L700.6800, L500.4050, L100.0100 #### [facility] [address] [place], [address] EST GFR - AA 83 mL/min Normal >60 [facility] Comment on above: Result Comment: Afri can [place] GFR Calc Performed By: #### L 501.2450, L700.6800, L500.4050, L100.0100 #### [facility] [address] [place], [address] GAP 10 Normal 5-15 [facility] Comment on above: Performed By: #### L 501.2450, L700.6800, L500.4050, L100.0100 #### [facility] [address] [place], [address] GFR/1.73 sq M.predicted among non-blacks MDRD (S/P/Bld) [Vol rate/Area] 69 mL/min/{1.73_m2} Normal >60 [facility] Comment on above: Result Comment: Non- GFR Calc Performed By: #### L 501.2450, L700.6800, L500.4050, L100.0100 #### [facility] [address] [place], [address] Globulin (S) [Mass/Vol] 4.2 g/dL Normal 2.2-4.2 [facility] Comment on above: Performed By: #### L 501.2450, L700.6800, L500.4050, L100.0100 #### [facility] [address] [place], [address] Glucose [Mass/Vol] 101 mg/dL Normal 74-106 [facility] Comment on above: Result Comment: Fast ing Glucose result from 100 to 125 mg/dL suggests IMPAIRED HOMEOSTASIS per A.D.A. criteria. Performed By: #### L 501.2450, L700.6800, L500.4050, L100.0100 #### [facility] [address] [place], [address] Potassium [Moles/Vol] 4.2 mmol/L Normal 3.5-5.1 [facility] Comment on above: Performed By: #### L 501.2450, L700.6800, L500.4050, L100.0100 #### [facility] [address] [place], [address] Sodium [Moles/Vol] 141 mmol/L Normal 136-145 [facility] Comment on above: Performed By: #### L 501.2450, L700.6800, L500.4050, L100.0100 #### [facility] [address] [place], [address] T PROT 7.9 g/dL Normal 6.4-8.2 [facility] Comment on above: Performed By: #### L 501.2450, L700.6800, L500.4050, L100.0100 #### [facility] [address] [place], [address] Urea nitrogen [Mass/Vol] 11 mg/dL Normal 7-18 [facility] Comment on above: Performed By: #### L 501.2450, L700.6800, L500.4050, L100.0100 #### [facility] [address] [place], [address] Emergency Department Summary on 11-03-2023 Emergency Department Summary [facility] Medical Records Department [address] [place] [address] Emergency Department Summary 11/03/23 MR#: [id number] Acct: [id number] Name: AGUEDA LEWIS Rep #: [id number] : 1995 28 From: Juan A Saha DO PCP: Care Physician,No Primary Status:DEP ER Location: ED HPI HPI - GI History of Present Illness Chief Complaint: Abd Pain Informant: patient Abdominal Pain/Flank Pain Onset: Yesterday Context: Gradual Onset Timing: Continuous Quality: Sharp Location: RUQ Worsened by: Food Relieved by: Nothing Nausea/Vomiting/Emesis GI Symptom: Negative for Nausea or Vomiting Diarrhea/Melena/Hematochez ia GI Symptom: Negative for Diarrhea, Melena or Hematochezia Associated Symptoms Associated Symptoms: Negative for Dysuria, Frequency, Hematuria or Urgency LMP: Last month Narrative Narrative: Patient presents with abdominal pain that began last evening. Patient states it is over her gallbladder area. Patient states she has had problems with her gallbladder in the past. Patient states she ate [employer] last night and her pain began after that. Patient states it has been constant since that time. Patient describes it as sharp. Patient states it is mainly over the right upper quadrant. Patient denies any nausea or vomiting. Patient denies any fevers or chills. Patient denies any diarrhea, melena, or hematochezia. Patient denies any urinary complaints. Patient states her last menstrual period was last month. [facility] Home Medications ???Medication ???Instructions ???Recorded ???Last Taken ???Type naproxen 500 mg tablet 500 mg PO BID #20 tabs 08/11/17 Unknown Rx naproxen 500 mg tablet 500 mg PO BID #14 tabs 01/05/19 Unknown Rx hydrocodone-acetaminophen 5-325mg 1 tab PO Q6H PRN PRN Pain 3 days 11/03/23 Unknown Rx 5mg-325mg #10 TABLETS ondansetron 4 mg disintegrating 4 mg PO Q8H PRN PRN Nausea #10 tabs 11/03/23 Unknown Rx tablet Allergy/AdvReac Type Severity Reaction Status Date / Time No Known Allergies Allergy Verified 11/03/23 10:17 Social History Smoking Status: Never smoker ROS ROS ED Constitutional Constitutional ED: Denies chills or fever(s) Eyes Eyes: Denies blurry vision or change in vision ENT ENT ED: Denies rhinorrhea or sore throat Cardiovascular Cardiovascular: Denies chest pain or palpitations Respiratory/Chest Respiratory/Chest: Reports dyspnea; Denies cough Gastrointestinal Gastrointestinal: Reports abdominal pain; Denies diarrhea, melena, nausea or vomiting Genitourinary Genitourinary ED: Denies dysuria or hematuria Musculoskeletal Musculoskeletal: Denies back pain or neck pain Integumentary Denies abscess or rash Neurologic Neurologic: Denies headache(s) or weakness Allergic/Immunologic Allergic/Immunologic ED: Denies mouth swelling or urticaria EXAM Physical Exam Const Vital Signs: 11/03/23 10:11 11/03/23 12:11 11/03/23 14:00 Temperature 97.3 F L Temperature Source Temporal Pulse Rate 96 55 L 69 Respiratory Rate 14 17 14 Blood Pressure 135/90 H 124/72 H 109/75 Blood Pressure Mean 105 89 86 Pulse Ox 97 98 98 Oxygen Delivery Method Room Air Room Air Positive well nourished, well developed and obese General Appearance ED: well developed and NAD Nutritional Appearance: obese HEENT Reports moist mucous membranes Neck supple and no JVD Resp normal respiratory effort and clear to auscultation bilaterally Cardio regular rate and regular rhythm GI non-distended Palpation: soft and tender epigastric, RUQ and Porter's sign; Negative for guarding or rebound tenderness present Extremity General Extremety ED: Negative for edema or tenderness General Extremity: Negative for edema Neuro CN's II-XII intact bilaterally, moves all extremities and no sensory deficits noted Sensorium / Orientation: alert Motor Exam: strength 5/5 throughout Psych mental status grossly normal MDM MDM MDM Narrative Medical decision making narrative: Differential diagnosis includes cholecystitis, cholelithiasis, pancreatitis, peptic ulcer disease, duodenal ulcer, pyelonephritis, and urinary tract infection. CBC will be obtained to assess for leukocytosis and anemia. Comprehensive metabolic profile will be obtained to assess for electrolyte abnormality and renal function. Lipase will be obtained to assess for pancreatitis. Right upper quadrant ultrasound will be obtained to assess for cholecystitis. Urinalysis will be obtained to assess for urinary tract infection and hematuria. Lab Data Attestation: I reviewed the patient's lab results. Lab results narrative: CBC was reviewed and was within normal limits. Comprehensive metabolic profile was reviewed and was within normal limits. Lipase was reviewed and was normal. Serum hCG was reviewed and was (more content not included)... Normal [facility] Gallbladderon 11-03-2023 Gallbladder [facility] Imaging Services [address] [place] [address] Gallbladder MR#: [id number] Acct: [id number] Name: AGUEDA LEWIS Rep #: [id number] : 1995 F 28 From: Michel lopes MD PCP: Care Physician,No Primary Status: DEP ER Study: Gallbladder Date of Exam: 11/03/23 Exam# [id number] Ordering Dr: Juan A Saha DO [id number] STUDY: ABDOMINAL ULTRASOUND - RIGHT UPPER QUADRANT REASON FOR VISIT: Female, 28 years old right upper quadrant pain. TECHNIQUE: Ultrasound evaluation of the right upper quadrant was performed with real-time and static rosas-scale imaging. TECHNICAL QUALITY: Adequate. COMPARISON: None. FINDINGS: Liver: The liver is slightly enlarged and measures 18.1 cm. There is normal echogenicity of the liver. The bile ducts are within normal limits. There is hepatic color flow. The direction of portal flow is hepatopetal. There is no demonstrated mass lesion. Gallbladder: Normal distended gallbladder. The gallbladder wall measures 2.9 mm. There is a negative sonographic Porter''s sign. There is no pericholecystic fluid. There are multiple echogenic structures within the gallbladder, consistent with multiple gallstones. Common Bile Duct (C.B.D.): The common bile duct measures 2.7 mm. Pancreas: Normal size of the head, body and tail of the pancreas. There is normal echogenicity of the pancreas. There is no demonstrated pancreatic mass or cyst. Right Kidney: Normal size of the right kidney. The right kidney measures 10.6 cm x 4 cm x 3.8 cm. Normal renal cortex. The right cortex measures 1.0 cm. There is no demonstrated renal mass or cyst. There is no right hydronephrosis. US/Gallbladder IMPRESSION: Multiple gallstones. Electronically Signed: Michel Mujica MD at 12:36 EDT , CC: Dr. Juan A Saha, DO; No Primary Care Physician Special Education Superintendent: Signed Normal [facility] Lipaseon 11-03-2023 Lipase [Catalytic activity/Vol] 46 U/L Normal 13-75 [facility] Comment on above: Result Comment: Travis reeves note: LIPASE revised reference range effective 22. New Lipase methodology. Expected to produce lower values than the previous assay method. NEW Reference Range: 13 - 75 U/L Performed By: #### L 501.2450, L700.6800, L500.4050, L100.0100 #### [facility] [address] [place], [address] ,Serum,hCG Quali.on 11-03-2023 HCG, SERUM QUAL Negative Normal [facility] Comment on above: Performed By: #### L 501.2450, L700.6800, L500.4050, L100.0100 #### [facility] [address] [place], [address] Urinalysis, Completeon 11-02 BACTERIA 4+ /hpf Normal None Seen [facility] Comment on above: Order Comment: KASHIF CTOR TO SPECIFY Performed By: #### L 400.0001 #### [facility] [address] [place], [address] EPI,SQUAMOUS 5-10 SEEN Normal 5-10 [facility] Comment on above: Order Comment: KASHIF CTOR TO SPECIFY Performed By: #### L 400.0001 #### [facility] [address] [place], [address] Mucus Ql (Urine sed) 1+ /hpf Normal [facility] Comment on above: Order Comment: COLLE CTOR TO SPECIFY Performed By: #### L 400.0001 #### [facility] [address] [place], [address] WBC 0-5 SEEN Normal 0-5 [facility] Comment on above: Order Comment: KASHIF CTOR TO SPECIFY Performed By: #### L 400.0001 #### [facility] [address] [place], [address] RBC 0 SEEN Normal 0-5 [facility] Comment on above: Order Comment: KASHIF CTOR TO SPECIFY Performed By: #### L 400.0001 #### [facility] [address] [place], [place], [address] 36on 07-25-2023 36 Please call patient to offer an in-office ER follow-up in 1-2 weeks with PCP or other available yellow pod provider if symptoms persist or worsen. Currently scheduled for 08/11/23, can just keep this appointment for ER follow-up unless pt wants to be seen sooner due to symptoms. [facility] Progress Noteon 07-25-2023 Progress Note Chart reviewed of ED follow up Seen in [facility] ED on 07/22/23 Reason: Abdominal pain Discharge instructions: Follow up with PCP as needed Attempted to call patient. Voice mail is not set up. ED message and education sent via [employer] [facility] 36on 07-13-2023 36 noted [facility] 36 S-Pt left message wi th Telephone Agent that she missed her period R-NO CONTACT X 2 Unable to leave message as no Voice Mail set up Reason for Disposition ? Unable to complete triage due to phone connection issues Protocols used: No Contact or Duplicate Contact Hnev-LJYRL-NY [facility] 36on 05-26-2023 36 Sent [id number] message to patient stating that a Zofran refill will be provided to last until her General Surgery appointment, but she should ask for further refills from the surgeon after appointment. [facility] 36 Could not leave a ri ssage will send a letter to schedule [facility] 36on 05-24-2023 36 Could not leave a vm will try again later [facility] 36 Prescription request reviewed for compliance with [facility] guidelines. Refill not recommended due to ordered for up to 7 days. Please schedule patient for well woman with PAP with PCP as soon as possible. Normal [facility] 36on 04-18-2023 36 Appt made 04/27 Normal [facility] 36 Please call patient to schedule in-office soonest available appointment with PCP for follow-up to discuss irregular menses and reassess abdominal pain. Normal [facility] 36on 04-17-2023 36 Last apt 03/27/23. Ne xt apt not scheduled yet. Normal [facility] CBC panel Auto (Bld)Ordered By: Yuliana Hood on 03-27-2023 Erythrocyte distribution width (RBC) [Ratio] 14.7 % High 11.5 - 14.5 % [facility] Hematocrit (Bld) [Volume fraction] 37.6 % 35.0 - 47.0 % [facility] Hemoglobin (Bld) [Mass/Vol] 12.5 g/dL 11.7 - 16.0 g/dL [facility] Interpretation and review of laboratory results Abnormal [facility] MCH (RBC) [Entitic mass] 27.8 pg 26.0 - 34.0 pg [facility] MCHC (RBC) [Mass/Vol] 33.2 % 32.0 - 36.0 % [facility] MCV (RBC) [Entitic vol] 83.8 fL 80.0 - 98.0 fL [facility] Platelet mean volume (Bld) [Entitic vol] 9.0 fL 7.4 - 12.4 fL [facility] Platelets (Bld) [#/Vol] 283 10*3/uL 140 - 440 10*3/uL [facility] RBC (Bld) [#/Vol] 4.49 10*6/uL 3.8 - 5.20 10*6/uL [facility] WBC (Bld) [#/Vol] 8.4 10*3/uL 3.6 - 10.7 10*3/uL [facility] Comprehensive metabolic 1998 panelon 03-27-2023 Albumin [Mass/Vol] 4.4 g/dL 3.5 - 5.0 g/dL [facility] ALP [Catalytic activity/Vol] 80 U/L 38 - 126 U/L [facility] ALT [Catalytic activity/Vol] 19 U/L 0 - 34 U/L [facility] Anion gap [Moles/Vol] 8 mmol/L 3 - 13 mmol/L [facility] AST [Catalytic activity/Vol] 25 U/L 15 - 46 U/L [facility] Bilirubin [Mass/Vol] 0.4 mg/dL 0.2 - 1 .3 mg/dL [facility] Calcium [Mass/Vol] 9.2 mg/dL 8.4 - 10. 4 mg/dL [facility] Chloride [Moles/Vol] 105 mmol/L 98 - 10 7 mmol/L [facility] CO2 [Moles/Vol] 25 mmol/L 22 - 30 mmol/L [facility] Creatinine [Mass/Vol] 0.83 mg/dL 0.52 - 1.04 mg/dL [facility] GFR/1.73 sq M.predicted MDRD (S/P/Bld) [Vol rate/Area] - PINF [facility] Comment on above: Calculation based on the Chronic Kidney Disease Epidemiology Collaboration (CKD-EPI) equation refit without adjustment for race Glucose [Mass/Vol] 101 mg/dL High 70 - 100 mg/dL [facility] Interpretation and review of laboratory results Abnormal [facility] Potassium [Moles/Vol] 4.2 mmol/L 3.5 - 5.1 mmol/L [facility] Protein [Mass/Vol] 7.8 g/dL 6.3 - 8.2 g/dL [facility] Sodium [Moles/Vol] 138 mmol/L 135 - 145 mmol/L [facility] Urea nitrogen [Mass/Vol] 11 mg/dL 7 - 17 mg/dL [facility] HCG ( test) Ql (U)O rdered By: Heydi Lowry on 03-27-2023 Beta HCG ( test) Ql (U) [id number] [facility] Interpretation and review of laboratory results Normal [facility] NEGATIVE QC Pass [facility] POSITIVE QC Pass [facility] Preg Test, Ur Negative Negative [facility] Laboratory - Chemistry and C hemistry - challengeon 03-27-2023 Lipase [Catalytic activity/Vol] 113 U/L 23 - 300 U/L [facility] Lipase [Catalytic activity/V ol]on 03-27-2023 Interpretation and review of laboratory results Normal [facility] No Panel Informationon 03-27 [employer] No Panel InformationOrdered By: Victor M Foster on 12-05-2022 P [place] 62 degrees [employer] Phone: TX Interval 151 ms [employer] Phone: QRS [place] 19 degrees [employer] Phone: QRSD Interval 81 ms [employer] Phone: QT Interval 352 ms [employer] Phone: QTC Interval 447 ms [employer] Phone: T Wave [place] 26 degrees [employer] Phone: [phone] [employer] Phone: No Panel Informationon 12-05 Sinus rhythm Probable left atrial enlargement Electronically Signed On 12-05-2022 20:00:26 EDT by Victor M Foster Victor M Conner MD - 12/05/2022 IMPRESSION: Sinus rhythm Probable left atrial enlargement Electronically Signed On 12-05-2022 20:00:26 EDT by Victor M Foster [employer] Vital signsOrdered By: Mario Foster on 12-05-2022 Heart rate 97 /min bpm [employer] Phone: CR Spine Cervical 2 or 3 Vie wson 11-01-2020 CR Spine Cervical 2 or 3 Views Patient Name: AGUEDA LEWIS Diagnostic Radiology ACCESSION EXAM DATE/TIME PROCEDURE ORDERING PROVIDER [id number] 11/01/2020 20:08 EDT CR Spine Cervical 2 or 3 VIANEY ANN Views CPT code 30665 Reason For Exam (CR Spine Cervical 2 or 3 Views) R arm numbness, weakness Report CERVICAL SPINE 3 VIEWS CLINICAL INDICATION: R arm numbness, weakness TECHNIQUE: 3 views of the cervical spine. COMPARISON: None. FINDINGS: No acute loss of height or gross malalignment of vertebral bodies. No osseous destruction. Posterior C1 ring somewhat small and possibly hypoplastic may be developmental or anatomic variant. Disc spaces maintained. Prevertebral soft tissues grossly unremarkable. IMPRESSION: 1. No acute osseous abnormality. Report Dictated on Workstation: AMIRA Final Dictated: 11/01/2020 8:13 pm Dictating Physician: MD MANDUJANO WENDELL Signed Date and Time: 11/01/2020 8:14 pm Signed by: MD MANDUJANO WENDELL Transcribed Date and Time: 11/01/2020 8:13 Normal [facility] ED Provider Noteon ED Provider Note Emergency Department Encounter [facility] EMERGENCY DEPT Patient: Agueda Lewis : 1995 Date of Evaluation: 11/01/2020 ED Provider: Vianey Ann PA-C As the [id number], I performed a medical screening history and physical exam on this patient. An N95 and gloves were worn during the entirety of this encounter. HISTORY OF PRESENT ILLNESS In brief, Agueda Lewis is a 25 y.o. female that presents for right arm numbness from the elbow distally. Patient reports that this started this afternoon around 11?12. Patient states that she accidentally touched propane gas early this morning at 3 AM and believes that it could be due to this. She has never had numbness before in her extremities. Denies any cervical spine history. Denies neck pain. She states that she has no difficulty moving her right upper extremity. PHYSICAL EXAM ED Triage Vitals Enc Vitals Group BP 11/01/201936 105/76 Pulse 11/01/201936 74 Resp 11/01/201936 18 Temp 11/01/201936 97.5 ?F (36.4 ?C) Temp Source 11/01/201936 Temporal SpO2 11/01/201936 98 % Weight 11/01/201936 212 lb (96.2 kg) Height 11/01/201935 5' 11 (1.803 m) Head Circumference -- Peak Flow -- Pain Score -- Pain Loc -- Pain Edu? -- Excl. in GC? -- On brief exam, patient alert oriented x3, mentating appropriately. No obvious deformities noted to the upper extremities. Symmetric radial pulses. 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 She reports subjective numbness to the left elbow distally compared to the right. Full range of motion at the fingers, wrist, elbow and left shoulder. No midline C-spine tenderness. Negative pronator drift. Cranial nerves II through XII intact. We will initiate diagnostics/treatments as indicated and place in main ED as soon as available. (Elenita) Vianey Ann PA-C [employer] Vianey Ann PA-C 11/01/201952 [facility] Patient: Agueda Lewis : 1995 Date of Evaluation: 11/01/2020 ED SAMMI Provider: DIETER Ku Patient was seen independently here in the Emergency Department today by myself, supervising physician was available here in the Emergency Department for consult if needed. Chief Complaint Chief Complaint Patient presents with ? Numbness pt comes in for right arm numbness from just above her elbow, down her right arm and hand. Pt states she had propane leak on her arm yesterday and at first it was burning, but now she has numbness. Pt states she can move her arm with no issues, but cannot feel it moving [place] I was wearing a surgical mask for the entirety of this encounter. Does this patient come from an ECF, SNF, Rehab, Retirement or other Congregate setting: Home (If yes to above patient needs a Covid-19 test) Agueda Lewis is a 25 y.o. female whopresents to the emergency department today with complaints of numbness and tingling to her right upper extremity. 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 She notes that she did not realize that the propane tank was leaking and all of a sudden she felt a very cold sensation go over her arm and realized that the tank was leaking onto her arm. She notes that it started to burn her left arm. She notes at this point she pulled her arm away. She tells me that it mahan for several minutes after and then went home and went to sleep. She notes that she was awake and around 3 PM this afternoon after feeling some numbness and tingling in her right upper extremity. She denies any other injury, patient denies fever or chills, cough, headache or dizziness, chest pain, shortness breath or difficulty breathing, abdominal pain, nausea, vomiting, diarrhea, constipation, black or bloody stools. Patient denies any loss of smell, taste, suspected Covid contacts. ROS: Review of Systems At least 10 systems reviewed and otherwise acutely negative except as in the [place]. Past History History reviewed. No pertinent past medical history. History reviewed. No pertinent surgical history. Social History Socioeconomic History ? Marital status: Single Spouse name: None ? Number of children: None ? Years of education: None ? Highest education level: None Occupational History ? None Tobacco Use ? Smoking status: Current Every Day Smoker Types: E-Cigarettes ? Smokeless tobacco: Never Used Substance and Sexual Activity ? Alcohol use: Never ? Drug use: Never ? Sexual activity: None Other Topics Concern ? None Social History Narrative ? None Social Determinants of Health Financial Resource Strain: ? Difficulty of Paying Living Expenses: Food Insecurity: ? Worried About Running Out of Food in the Last Year: ? Ran Out of Food in the Last Year: Transportation Needs: ? Lack of Transportation (Medical): ? Lack of Transportation (Non-Medical): Physical Activity: ? Days of Exercise per Week: ? Minutes of Exercise per Session: Stress: ? Feeling of Stress : Social Connections: ? Frequency of Communication with Friends and Family: ? Frequency of Social Gatherings with Friends and Family: ? Attends Rastafari Services: ? Active Member of Clubs or Organizations: ? Attends Club or Organization Meetings: ? Marital Status: Intimate Partner Violence: ? Fear of Current or Ex-Partner: ? Emotionally Abused: ? Physically Abused: ? Sexually Abused: Medications/Allergies Previous Medications No medications on file No Known Allergies Physical Exam ED Triage Vitals BP Temp Temp Source Pulse Resp SpO2 Height Weight 11/01/20193611/01/20193611/01/20193611/01/20193611/01/20193611/01/20193611/01/20193511/01/201936 105/76 97.5 ?F (36.4 ?C) Temporal 74 18 98 % 5' 11 (1.803 m) 212 lb (96.2 kg) Physical Exam Vitals and nursing note reviewed. Constitutional: Appearance: Normal appearance. She is normal weight. HENT: Head: Normocephalic and atraumatic. Nose: Nose normal. Mouth/Throat: Mouth: Mucous membranes are moist. Pharynx: Oropharynx is clear. Eyes: Extraocular Movements: Extraocular movements intact. Pupils: Pupils are equal, round, and reactive to light. Cardiovascular: Rate and Rhythm: Normal rate and regular rhythm. Pulses: Normal pulses. Heart sounds: Normal heart sounds. Pulmonary: Effort: Pulmonary effort is normal. Breath sounds: Normal breath sounds. Abdominal: General: Abdomen is flat. Bowel sounds are normal. Palpations: Abdomen is soft. Tenderness: There is no abdominal tenderness. There is no guarding or rebound. Musculoskeletal: General: Normal range of motion. Cervical back: Normal range of motion and neck supple. Skin: General: Skin is warm and dry. Capillary Refill: Capillary refill takes less than 2 (more content not included)... Normal [facility] XR CERVICAL SPINE (2-3 VIEWS )Ordered By: Vianey Ann on 11-01-2020 [id number] ACCESSION EXAM DATE/TIME PROCEDURE ORDERING PROVIDER [id number] 11/01/2020 20:08 EDT CR Spine Cervical 2 or 3 VIANEY ANN Views CPT code 78539 Reason For Exam (CR Spine Cervical 2 or 3 Views) R arm numbness, weakness Report CERVICAL SPINE 3 VIEWS CLINICAL INDICATION: R arm numbness, weakness TECHNIQUE: 3 views of the cervical spine. COMPARISON: None. FINDINGS: No acute loss of height or gross malalignment of vertebral bodies. No osseous destruction. Posterior C1 ring somewhat small and possibly hypoplastic may be developmental or anatomic variant. Disc spaces maintained. Prevertebral soft tissues grossly unremarkable. IMPRESSION: 1. No acute osseous abnormality. Report Dictated on Workstation: [id number] --- Final --- Dictated: 11/01/2020 8:13 pm Dictating Physician: MD MANDUJANO WENDELL Signed Date and Time: 11/01/2020 8:14 pm Signed by: MD MANDUJANO WENDELL Transcribed Date and Time: 11/01/2020 8:13 [facility] Work Phone: Nam, [facility] Incoming Radiology Results From [facility] - 11/01/2020 8:16 PM EDT Patient Name: AGUEDA LEWIS Diagnostic Radiology ACCESSION EXAM DATE/TIME PROCEDURE ORDERING PROVIDER [id number] 11/01/2020 20:08 EDT CR Spine Cervical 2 or 3 VIANEY ANN Views CPT code 65308 Reason For Exam (CR Spine Cervical 2 or 3 Views) R arm numbness, weakness Report CERVICAL SPINE 3 VIEWS CLINICAL INDICATION: R arm numbness, weakness TECHNIQUE: 3 views of the cervical spine. COMPARISON: None. FINDINGS: No acute loss of height or gross malalignment of vertebral bodies. No osseous destruction. Posterior C1 ring somewhat small and possibly hypoplastic may be developmental or anatomic variant. Disc spaces maintained. Prevertebral soft tissues grossly unremarkable. IMPRESSION: 1. No acute osseous abnormality. Report Dictated on Workstation: [id number] --- Final --- Dictated: 11/01/2020 8:13 pm Dictating Physician: MD MANDUJANO WENDELL Signed Date and Time: 11/01/2020 8:14 pm Signed by: MD MANDUJANO WENDELL Transcribed Date and Time: 11/01/2020 8:13 [facility] Work Phone: [facility] Work Phone: XR KNEE 4V AP/LAT/OBLS LTon 08-11-2020 XR KNEE 4V AP/LAT/OBLS LT Final Report DATE OF EXAM: Aug 11 2020 2:41AM GRX 5204 - XR KNEE 4V AP/LAT/OBLS LT / PROCEDURE REASON: Instability, knee Physician Interpretation EXAMINATION: XR KNEE 4V AP/LAT/OBLS LT HISTORY: Left knee pain. Instability, knee. TECHNIQUE: XR KNEE 4V AP/LAT/OBLS LT Laterality: LEFT Number of different views (projections): 4 M: XB_1 COMPARISON: Knee radiographs 07/27/2020 RESULT: No acute fracture. No dislocation. No periosteal reaction. No destructive osseous lesion. Normal bone mineralization. Soft tissues are unremarkable. IMPRESSION: No acute radiographic abnormality. Special Education Superintendent: [facility] Transcribe Date/Time: Aug 11 2020 3:23A Dictated by : VINCE ECHOLS MD This examination was interpreted and the report reviewed and electronically signed by: VINCE ECHOLS MD on Aug 11 2020 3:25AM EST Normal [facility] XR KNEE 4V AP/PA BOTH+LAT/ME R LTon 07-27-2020 XR KNEE 4V AP/PA BOTH+LAT/NELLY LT Final Report DATE OF EXAM: Jul 27 2020 7:48AM ATX 5202 - XR KNEE 4V AP/PA BOTH+LAT/NELLY LT / PROCEDURE REASON: Acute pain of left knee Physician Interpretation EXAM TITLE: XR KNEE 4V AP/PA BOTH+LAT/NELLY LT DATE: 07/27/2020 7:52 AM INDICATION: Left knee pain COMPARISON: None. FINDINGS: There is no fracture or dislocation. There is no joint effusion. Soft tissues appear normal. IMPRESSION: Within normal limits. Special Education Superintendent: [facility] Transcribe Date/Time: Jul 27 2020 7:52A Dictated by : MOLLY HARVEY MD This examination was interpreted and the report reviewed and electronically signed by: MOLLY HARVEY MD on Jul 27 2020 7:53AM EST Normal [facility] EMERGENCY REPORTon 0 EMERGENCY REPORT [facility] EMERGENCY ROOM REPORT NAME ACCOUNT SEX AGE ADMIT DISCHARGE PT MED. RECORD# NUMBER DATE DATE TYPE GIOVANNY [id number] F 11/13/19 11/13/19 3 AGUEDA [id number] ROOM: ER DATE OF : 1995 DICTATING PHYSICIAN: Michele Reynolds CHIEF COMPLAINT: Dizziness. HISTORY OF PRESENT ILLNESS: The patient states that she felt fine last night. She had ate at a restaurant and she felt okay when she got up other than she had a stuffy nose. She went to work and after working a few hours started feeling dizzy. She states that it seemed to be a little worse when she was moving around. She did not have any fever or chills. No cough, congestion, or shortness of breath. She thought that it might be a food poisoning. No vomiting or diarrhea. PAST MEDICAL HISTORY: Past medical history is significant for anemia. PAST SURGICAL HISTORY: She has had previous adenoidectomy. MEDICATIONS: She takes no medications regularly. ALLERGIES: No known allergies. SOCIAL HISTORY: She lives at home. She does Vape. She does not drink alcohol and denies other drug use. REVIEW OF SYSTEMS: No nausea or vomiting, some slight loose stool. No abdominal pain. No headache or dizziness. No underlying heart, lung, bowel or bladder problems. PHYSICAL EXAMINATION: This is a 24-year-old female alert, appropriate, and does not appear toxic or in acute distress. Her skin is warm and dry. She does have a number of scattered scabs in different levels of healing, but no evidence of any skin infections. HEENT: Eyes, ears, nose, mouth, and throat all within normal limits. Her neck is supple without adenopathy. Lungs are clear without crackles or wheezes. Cardiac exam is regular rhythm without ectopy or murmurs. Abdomen is soft and nontender. She moves all extremities appropriately without any focal weaknesses. Good peripheral pulses. Capillary refill is about 1 to 2 seconds. No redness, tenderness, or asymmetry. No clubbing, cyanosis, or edema. Vital signs: Temperature 98.6, pulse 81, respirations 16, and blood pressure 134/91. DIAGNOSTIC DATA: She had an EKG which showed no acute abnormalities. Her orthostatic blood pressure and pulse were just mildly positive as noted. Laboratory Page 1 of 2 [facility] Emergency Room Report AGUEDA LEWIS : 1995 studies returned showing a CBC with a normal white count and unremarkable differential, H&H 10.4 and 32.5 with mild microcytic indices. TSH was normal. CMP: All within normal limits. Urinalysis was negative. EMERGENCY DEPARTMENT COURSE AND TREATMENT: Her O2 saturation was 100%. IV of normal saline was placed. She was given a liter of IV fluids. DIAGNOSES: 1. Dizziness, uncertain etiology. 2. Possible mild hypovolemia. PLAN/DISPOSITION: The patient will be discharged to home. I did give her a slip to be off of work today. She is to push fluids orally and followup with her family doctor in a day or 2 if no better, returning if symptoms worsen. Dictated By: Michele Reynolds MD 11/13/19 13:23 JOB #: [id number] Transcribed By: am 11/13/19 18:28 Electronically signed by: MEHREEN Reynolds M.D. 11/16/19 07:04 Page 2 of 2 [facility] Emergency Room Report Normal [facility] CBC + DIFFon 11-13-2019 Basophils (Bld) [#/Vol] 0.00 x10EE3/UL Normal 0.00 - 0.10 [facility] Comment on above: Performed By: #### 2 72641 #### [facility],[address] [place] [address] 23686 Basophils/100 WBC (Bld) 0.5 % Normal 0.0 - 2.0 [facility] Comment on above: Performed By: #### 2 63907 #### [facility],[address] [place] [address] CBC + DIFF Normal [facility] Comment on above: Result Comment: CBC- COMPLETE BLOOD COUNT Performed By: #### 2 36192 #### [facility],[address] [place] [address] Eosinophils (Bld) [#/Vol] 0.20 x10EE3/UL Normal 0.00 - 0.50 [facility] Comment on above: Performed By: #### 2 87017 #### [facility],[address] [place], [place] [id number] Eosinophils/100 WBC (Bld) 2.3 % Normal 0.0 - 7.0 [facility] Comment on above: Performed By: #### 2 26376 #### [facility],[address] [place] [address] Erythrocyte distribution width (RBC) [Ratio] 16.0 % High 12.0 - 15.6 [facility] Comment on above: Performed By: #### 2 29181 #### [facility],[address] [place], [place] [id number] Hematocrit (Bld) [Volume fraction] 32.5 % Low 34.0 - 46.0 [facility] Comment on above: Performed By: #### 2 75563 #### [facility],[address] [place] [address] 16198 Hemoglobin (Bld) [Mass/Vol] 10.4 g/dL Low 12.0 - 16.0 [facility] Comment on above: Performed By: #### 2 57651 #### [facility],[address] [place] [address] 48234 Lymphocytes (Bld) [#/Vol] 1.40 x10EE3/UL Normal 0.80 - 2.80 [facility] Comment on above: Performed By: #### 2 25182 #### [facility],[address] [place] [address] 64703 Lymphocytes/100 WBC (Bld) 13.4 % Low 20.0 - 45.0 [facility] Comment on above: Performed By: #### 2 05701 #### [facility],[address] [place] [address] 44629 MANUAL DIFF N/A Normal [facility] Comment on above: Performed By: #### 2 31029 #### [facility],[address] [place] [address] 11511 MCH (RBC) [Entitic mass] 23 pg Low 27 - 33 [facility] Comment on above: Performed By: #### 2 44937 #### [facility],[address] [place] [address] 02266 MCHC (RBC) [Mass/Vol] 32 X10 3 Normal 32 - 36 [facility] Comment on above: Performed By: #### 2 03412 #### [facility],[address] [place] [address] 24010 MCV (RBC) [Entitic vol] 73 fL Low 80 - 99 [facility] Comment on above: Performed By: #### 2 71086 #### [facility],[address] [place] [address] 86465 Monocytes (Bld) [#/Vol] 0.80 x10EE3/UL Normal 0.20 - 1.00 [facility] Comment on above: Performed By: #### 2 10035 #### [facility],[address] [place] [address] 90831 MONOS % 7.4 % Normal 0.0 - 10.0 [facility] Comment on above: Performed By: #### 2 64269 #### [facility],[address] [place] [address] 85572 Morphology Adria (Bld) [Interp] N/A Normal [facility] Comment on above: Performed By: #### 2 31321 #### [facility],[address] [place] [address] 24626 Neutrophils (Bld) [#/Vol] 7.90 x10EE3/UL High 1.50 - 7.10 [facility] Comment on above: Performed By: #### 2 20391 #### [facility],[address] [place] [address] 69692 Neutrophils/100 WBC (Bld) 76.4 % High 46.0 - 76.0 [facility] Comment on above: Performed By: #### 2 28747 #### [facility],[address] [place] [address] 25586 Platelet mean volume (Bld) [Entitic vol] 9.0 fL Normal 6.6 - 10.5 [facility] Comment on above: Result Comment: AUTO MATED DIFFERENTIAL Performed By: #### 2 03847 #### [facility],[address] [place] [address] 24964 Platelets (Bld) [#/Vol] 275 x10EE3/UL Normal 150 - 450 [facility] Comment on above: Performed By: #### 2 05219 #### [facility],[address] [place] [address] 70282 RBC (Bld) [#/Vol] 4.47 x 10EE6/UL Normal 4.10 - 5.30 [facility] Comment on above: Performed By: #### 2 05295 #### [facility],[address] [place] [address] 78288 WBC (Bld) [#/Vol] 10.3 x 10EE3/UL Normal 4.5 - 10.8 [facility] Comment on above: Performed By: #### 2 75698 #### [facility],[address] [place] [address] 88187 CMP with eGFRon 11-13-2019 Age - Reported 24 years Normal [facility] Comment on above: Performed By: #### 2 68285 #### [facility],[address] [place] [address] 49995 Albumin [Mass/Vol] 4.0 g/dL Normal 3.4 - 4.8 [facility] Comment on above: Performed By: #### 2 82172 #### [facility],[address] [place] [address] 47641 Albumin/Globulin [Mass ratio] 1.3 {ratio} Normal 0.9 - 1.6 [facility] Comment on above: Performed By: #### 2 43374 #### [facility],[address] [place] [address] 92803 ALK PHOS 70 U/L Normal 38 - 126 [facility] Comment on above: Performed By: #### 2 57936 #### [facility],[address] [place] [address] 86642 ALT/SGPT 13 U/L Normal 8 - 35 [facility] Comment on above: Performed By: #### 2 85798 #### [facility],[address] [place] [address] 64777 Anion gap [Moles/Vol] 10 mmol/L Normal 10 - 20 [facility] Comment on above: Performed By: #### 2 00454 #### [facility],[address] [place] [address] 85254 AST/SGOT 19 U/L Normal 13 - 39 [facility] Comment on above: Performed By: #### 2 33266 #### [facility],[address] [place] [address] 80348 B/C RATIO 10 ratio Normal 0 - 30 [facility] Comment on above: Performed By: #### 2 43717 #### [facility],[address] [place] [address] 07686 Bilirubin [Mass/Vol] 0.3 mg/dL Normal 0.0 - 1.5 [facility] Comment on above: Performed By: #### 2 03597 #### [facility],[address] [place] [address] 14767 Calcium [Mass/Vol] 9.1 mg/dL Normal 8.6 - 10.2 [facility] Comment on above: Performed By: #### 2 81304 #### [facility],[address] [place] [address] 03089 Chloride [Moles/Vol] 107 mmol/L Normal 98 - 107 [facility] Comment on above: Performed By: #### 2 72639 #### [facility],[address] [place] [address] 41816 CO2 [Moles/Vol] 24.6 mmol/L Normal 21.0 - 31.0 [facility] Comment on above: Performed By: #### 2 22007 #### [facility],[address] [place] [address] 13822 Creatinine [Mass/Vol] 1.0 mg/dL Normal 0.6 - 1.2 [facility] Comment on above: Performed By: #### 2 07985 #### [facility],[address] [place] [address] 00229 GFR/1.73 sq M predicted among non-blacks MDRD (S/P/Bld) [Vol rate/Area] Normal [facility] Comment on above: Result Comment: COMP REHENSIVE METABOLIC PANEL Performed By: #### 2 14509 #### [facility],[address] [place] [address] 06038 GFR/1.73 sq M predicted among non-blacks MDRD (S/P/Bld) [Vol rate/Area] mL/min/{1.73_m2} Normal 60 - 999 [facility] Comment on above: Performed By: #### 2 59532 #### [facility],[address] [place] [address] Result Comment: ACCO RDING TO THE NATIONAL KIDNEY DISEASE EDUCATION PROGRAM(NKDE), A NORMAL eGFR IS A VALUE GREATER THAN OR EQUAL TO 60 ML/MIN/1.73 SQ METERS. CHRONIC KIDNEY DISEASE: <60mL/MIN/1.73 SQ METERS KIDNEY FAILURE: <15mL/MIN/1.73 SQ METERS THIS TEST SHOULD ONLY BE USED FOR PATIENTS 18 YEARS OF AGE AND OLDER. Globulin (S) [Mass/Vol] 3.0 g/dL Normal 1.5 - 3.8 [facility] Comment on above: Performed By: #### 2 09478 #### [place] [address] Glucose [Mass/Vol] 90 mg/dL Normal 74 - 106 [facility] Comment on above: Performed By: #### 2 27437 #### [place] [address] Potassium [Moles/Vol] 3.8 mmol/L Normal 3.5 - 5.1 [facility] Comment on above: Performed By: #### 2 15540 #### [place] [address] Protein [Mass/Vol] 7.0 g/dL Normal 6.4 - 8.3 [facility] Comment on above: Performed By: #### 2 91067 #### [place] [id number] Sodium [Moles/Vol] 138 mmol/L Normal 136 - 145 [facility] Comment on above: Performed By: #### 2 95326 #### [place] [address] Urea nitrogen [Mass/Vol] 10 mg/dL Normal 6 - 20 [facility] Comment on above: Performed By: #### 2 60592 #### [place] [id number] TSHon 11-13-2019 TSH Qn 0.60 uIU/ml Normal 0.34 - 5.60 [facility] Comment on above: Performed By: #### 2 09220 #### [facility],[address] [place] [address] URINALYSISon 11-13-2019 Amorphous NONE Normal [facility] Comment on above: Performed By: #### 2 72835 #### [facility],[address] [place] [address] Bacteria LM.HPF (Urine sed) [#/Area] TRACE Normal [facility] Comment on above: Performed By: #### 2 72815 #### [facility],[address] [place] [address] Bilirubin [Mass/Vol] Negative Normal NORMAL: NEGATIVE [facility] Comment on above: Performed By: #### 2 14525 #### [facility],[address] [place] [address] Blood 250 Abnormal NORMAL: NEGATIVE [facility] Comment on above: Performed By: #### 2 08190 #### [facility],[address] [place] [address] Casts LM.LPF (Urine sed) [#/Area] NONE Normal [facility] Comment on above: Performed By: #### 2 73810 #### [facility],[address] [place] [address] Clarity (U) clear Normal NORMAL: CLEAR [facility] Comment on above: Performed By: #### 2 91224 #### [facility],[address] [place] [address] Color (U) p.yel Normal NORMAL: YELLOW [facility] Comment on above: Performed By: #### 2 65960 #### [facility],[address] [place] [address] Crystals LM Nom (Urine sed) NONE Normal [facility] Comment on above: Performed By: #### 2 35852 #### [facility],[address] [place] [address],[facility] [address] Epi Cells OCC Normal [facility] Comment on above: Performed By: #### 2 08276 #### [facility],[address] [place] [address],[facility] 13299 Glucose [Mass/Vol] NORM Normal NORMAL: NORMAL [facility] Comment on above: Performed By: #### 2 76032 #### [facility],[address] [place] [address],[facility] 88953 Ketone Negative Normal NORMAL: NEGATIVE [facility] Comment on above: Performed By: #### 2 39886 #### [facility],[address] [place] [address] 83289 Microscopic SEE BELOW Normal [facility] Comment on above: Result Comment: MICR OSCOPIC Performed By: #### 2 73883 #### [facility],[address] [place] [address] 29666 Mucous NONE Normal [facility] Comment on above: Performed By: #### 2 62193 #### [facility],[address] [place] [address] 72749 Nitrite Ql (U) Negative Normal NORMAL: NEGATIVE [facility] Comment on above: Performed By: #### 2 44786 #### [facility],[address] [place] [address] 52302 pH (Bld) 5 Normal NORMAL: 5.0-8.0 [facility] Comment on above: Performed By: #### 2 42942 #### [facility],[address] [place] [address] 44244 Protein (U) [Mass/Vol] Negative Normal NORMAL: NEGATIVE [facility] Comment on above: Performed By: #### 2 47204 #### [facility],[address] [place] [address] 61107 Rbc 0-5 Normal 0-3/hpf [facility] Comment on above: Performed By: #### 2 79236 #### [facility],[address] [place] [address] Sp [place] 1.010 Normal NORMAL: 1.010-1.030 [facility] Comment on above: Performed By: #### 2 17097 #### [facility],[address] [place] [address] Specimen type Nom (Spec) Void Normal [facility] Comment on above: Performed By: #### 2 35006 #### [facility],[address] [place] [address] Urobilinog NORM Normal NORMAL: NORMAL [facility] Comment on above: Performed By: #### 2 48335 #### [facility],[address] [place] [address] Wbc 1-5 Normal 0-5/hpf [facility] Comment on above: Performed By: #### 2 59882 #### [facility],[address] [place] [address] WBC (Bld) [#/Vol] Negative Normal NORMAL: NEGATIVE [facility] Comment on above: Performed By: #### 2 66899 #### [facility],[address] [place] [address] Yeast LM Ql (Urine sed) NONE Normal [facility] Comment on above: Performed By: #### 2 63874 #### [facility],[address] [place] [address] EMERGENCY REPORTon 0 EMERGENCY REPORT [facility] EMERGENCY ROOM REPORT NAME ACCOUNT SEX AGE ADMIT DISCHARGE PT MED. RECORD# NUMBER DATE DATE TYPE GIOVANNY [id number] F 11/05/19 11/05/19 3 AGUEDA [id number] ROOM: ER DATE OF : 1995 DICTATING PHYSICIAN: Marcy Guardado CHIEF COMPLAINT: Left shoulder pain. HISTORY OF PRESENT ILLNESS: The patient is a 24-year-old female who presents with left shoulder pain that has been progressively worsening for the past week. 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 She does not believe that this is a work-related injury. She does not recall any specific injury or trauma to her shoulder. She just feels that the lifting she does is aggravating her shoulder at this time. She has some tingling on the back of her shoulder, but no numbness, tingling or weakness in her left hand. She is right-handed. She denies any pain in her neck. She denies any other injuries or complaints at this time. PAST MEDICAL HISTORY: Iron-deficiency anemia. PAST SURGICAL HISTORY: Right forearm open reduction and internal fixation and tonsillectomy and adenoidectomy. ALLERGIES: No known drug allergies. REVIEW OF SYSTEMS: Ten systems reviewed and negative except for left shoulder pain. PHYSICAL EXAMINATION: VITAL SIGNS: Temperature 98.2, pulse 90, respirations 16, blood pressure 128/81, spO2 100% on room air. GENERAL: The patient is awake, alert, calm and in no acute distress. HEAD: Normocephalic, atraumatic. EYES: Pupils are equal, round and reactive to light and accommodation. Extraocular movements intact. EARS: External ears are normal. MOUTH: Oral mucous membranes moist. NECK: No adenopathy. No midline tenderness to palpation. No step-offs or deformities with palpation of the cervical spine. LUNGS: Clear to auscultation. CARDIAC: Regular rate and rhythm. BACK: The patient has tenderness to palpation at the left side of her lower trapezius muscle. She has a palpable muscle spasm and not in this area. No ecchymosis, abrasions, lacerations or deformities. ABDOMEN: Soft and nondistended, nontender. EXTREMITIES: No deformity or edema. The patient has increased pain with active range of motion of her left shoulder. She is able to fully abduct and adduct her shoulder, but abduction above 90 degrees is painful for her. She has full passive range of motion and this is less Page 1 of 2 AGUEDA LEWIS Emergency Room Report AGUEDA LEWIS : 1995 painful for her. No tenderness to palpation of her shoulder although or wrist on the left side. No tenderness to palpation of acromioclavicular joint. No deformity noted. Remainder of extremity exam is unremarkable. SKIN: No rashes or lesions noted. NEUROLOGIC: No focal deficits. Gait is normal. EMERGENCY DEPARTMENT COURSE AND TREATMENT: As the patient's pain is all located in her left trapezius and she has no bony tenderness to palpation, I do not feel an x-ray is warranted at this time. I helped her to stretch this area. She was given an IM injection of Toradol and oral Flexeril. On reevaluation, her pain had not completely resolved, but she felt much better and was comfortable being discharged home. She stated that she could not take any time off work because she has a 4-year-old child, but she would ask if her lifting at work could be limited until her shoulder heals. She was given a prescription for Flexeril and encouraged to take it before bed. She was taught stretching exercises for her trapezius muscle. She was instructed to follow up with a primary care physician and educated on when to return to the emergency department. DIAGNOSIS: Left trapezius muscle spasm. DISPOSITION: Home in stable condition. Dictated By: Marcy Guardado DO 11/05/19 20:35 JOB #: [id number] Transcribed By: sharron 11/05/19 21:55 Electronically signed by: E-Sign: Marcy Guardado D.O. 11/06/19 02:46 Page 2 of 2 AGUEDA LEWIS Emergency Room Report Normal [facility] ALC ETHANOLon 05-13-2017 ALC ETHANOL < 3.0 Normal <10.0 [facility] Comment on above: Order Comment: UNKNO WN Result Comment: UNCO NFIRMED Toxicology results. For MEDICAL purposes only. Performed By: #### L 500.76511, L500.76236, L500.07039 ####Test performed at: [address] [address] BASIC MET PANELon 05-13-2017 Anion gap 12 mmol/L Normal 6-18 [facility] Comment on above: Order Comment: UNKNO WN Performed By: #### L 500.24871, L500.57988, L500.26861 ####Test performed at: [address] [address] Calcium 8.5 mg/dL Normal 8.5-10.1 [facility] Comment on above: Order Comment: UNKNO WN Performed By: #### L 500.90598, L500.71738, L500.20256 ####Test performed at: [address] [address] Chloride 109 mmol/L High 98-107 [facility] Comment on above: Order Comment: UNKNO WN Performed By: #### L 500.39531, L500.37824, L500.28270 ####Test performed at: [address] [address] CO2 24 mmol/L Normal 21-32 [facility] Comment on above: Order Comment: UNKNO WN Performed By: #### L 500.89886, L500.77358, L500.74000 ####Test performed at: [place] [id number] Creatinine 0.918 mg/dL Normal 0.550-1.020 [facility] Comment on above: Order Comment: UNKNO WN Performed By: #### L 500.96067, L500.25777, L500.97926 ####Test performed at: [address] [address] Glucose mass conc 84 mg/dL Normal 74-106 [facility] Comment on above: Order Comment: UNKNO WN Performed By: #### L 500.48735, L500.97376, L500.46361 ####Test performed at: [address] [address] OSM 291 mosm/kg Normal 270-300 [facility] Comment on above: Order Comment: UNKNO WN Performed By: #### L 500.40314, L500.27949, L500.50831 ####Test performed at: [address] [address] Potassium molar conc 4.0 mmol/L Normal 3.5-5.1 [facility] Comment on above: Order Comment: UNKNO WN Performed By: #### L 500.12058, L500.24219, L500.97958 ####Test performed at: [address] [address] Sodium 141 mmol/L Normal 136-145 [facility] Comment on above: Order Comment: UNKNO WN Performed By: #### L 500.69970, L500.58176, L500.70574 ####Test performed at: [address] [address] Urea nitrogen 12 mg/dL Normal 7-18 [facility] Comment on above: Order Comment: UNKNO WN Performed By: #### L 500.33382, L500.98667, L500.39377 ####Test performed at: [address] [address] CBC W/DIFFon 05-13-2017 BASO ABS 0.1 K/uL Normal 0.0-0.2 [facility] Comment on above: Order Comment: UNKNO WN Performed By: #### L 500.37672, L500.79097, L500.51318 ####Test performed at: [address] [address] Basophils/100 WBC Auto (Bld) 0.7 % Normal [facility] Comment on above: Order Comment: UNKNO WN Performed By: #### L 500.13962, L500.28155, L500.04101 ####Test performed at: [address] [address] EOS ABS 0.2 K/uL Normal 0.0-0.5 [facility] Comment on above: Order Comment: UNKNO WN Performed By: #### L 500.92498, L500.39453, L500.61833 ####Test performed at: [address] [address] Eosinophils/100 leukocytes 3.0 % Normal [facility] Comment on above: Order Comment: UNKNO WN Performed By: #### L 500.35659, L500.97750, L500.00942 ####Test performed at: [address] [address] Erythrocyte distribution width Auto Ratio (RBC) 15.6 % High 11.5-14.5 [facility] Comment on above: Order Comment: UNKNO WN Performed By: #### L 500.61728, L500.34697, L500.99008 ####Test performed at: [address] [address] Erythrocytes (RBC) 0.000 10*6/uL Normal 0-0.012 [facility] Comment on above: Order Comment: UNKNO WN Performed By: #### L 500.22246, L500.01040, L500.68166 ####Test performed at: [address] [address] Erythrocytes (RBC) 4.05 10*6/uL Normal 3.5-5.5 [facility] Comment on above: Order Comment: UNKNO WN Performed By: #### L 500.91778, L500.04847, L500.25573 ####Test performed at: [place] [id number] Hematocrit (HCT) 31.7 % Low 36.0-48.0 [facility] Comment on above: Order Comment: UNKNO WN Performed By: #### L 500.46511, L500.61766, L500.86292 ####Test performed at: [address] [address] Hemoglobin mass conc (Bld) 10.0 g/dL Low 12.0-15.0 [facility] Comment on above: Order Comment: UNKNO WN Performed By: #### L 500.10494, L500.23562, L500.17220 ####Test performed at: [place] [id number] IG % 0.3 % Normal [facility] Comment on above: Order Comment: UNKNO WN Performed By: #### L 500.76130, L500.29877, L500.98122 ####Test performed at: [place] [id number] IG ABS 0.02 K/uL Normal 0-0.05 [facility] Comment on above: Order Comment: UNKNO WN Performed By: #### L 500.44597, L500.80855, L500.53742 ####Test performed at: [place] [address] Lymphocytes 2.7 10*3/uL Normal 1.2-3.5 [facility] Comment on above: Order Comment: UNKNO WN Performed By: #### L 500.52074, L500.88596, L500.58584 ####Test performed at: [address] [address] Lymphocytes/100 leukocytes 36.2 % Normal [facility] Comment on above: Order Comment: UNKNO WN Performed By: #### L 500.81891, L500.92807, L500.24776 ####Test performed at: [address] [address] MCH 24.7 pg Low 25.4-34.6 [facility] Comment on above: Order Comment: UNKNO WN Performed By: #### L 500.98033, L500.62578, L500.61415 ####Test performed at: [address] [address] MCHC mass conc (RBC) 31.5 g/dL Normal 31.5-36.5 [facility] Comment on above: Order Comment: UNKNO WN Performed By: #### L 500.19299, L500.69492, L500.83832 ####Test performed at: [address] [address] MCV 78.3 fL Low 79.0-98.0 [facility] Comment on above: Order Comment: UNKNO WN Performed By: #### L 500.73591, L500.47244, L500.94595 ####Test performed at: [address] [address] MONO ABS 0.6 K/uL Normal 0.0-1.0 [facility] Comment on above: Order Comment: UNKNO WN Performed By: #### L 500.10455, L500.58532, L500.60418 ####Test performed at: [address] [address] Monocytes/100 leukocytes 7.7 % Normal [facility] Comment on above: Order Comment: UNKNO WN Performed By: #### L 500.33016, L500.32379, L500.47052 ####Test performed at: [address] [address] Neutrophils 3.8 10*3/uL Normal 1.4-6.6 [facility] Comment on above: Order Comment: UNKNO WN Performed By: #### L 500.74224, L500.75459, L500.13004 ####Test performed at: [address] [address] Neutrophils/100 WBC Auto (Bld) 52.1 % Normal [facility] Comment on above: Order Comment: UNKNO WN Performed By: #### L 500.98739, L500.30425, L500.00055 ####Test performed at: [address] [address] NRBC % 0.0 /100 WBC Normal 0-0.2 [facility] Comment on above: Order Comment: UNKNO WN Performed By: #### L 500.51595, L500.67939, L500.10297 ####Test performed at: [address] [address] Platelet mean volume (PMV) 10.5 fL Normal 8.7-12.4 [facility] Comment on above: Order Comment: UNKNO WN Performed By: #### L 500.35724, L500.07979, L500.98697 ####Test performed at: [address] [address] Platelets 288 10*3/uL Normal 140-440 [facility] Comment on above: Order Comment: UNKNO WN Performed By: #### L 500.64624, L500.18218, L500.23055 ####Test performed at: [place] [id number] WBC (Leukocytes) 7.4 10*3/uL Normal 3.9-11.0 [facility] Comment on above: Order Comment: UNKNO WN Performed By: #### L 500.85091, L500.26692, L500.75048 ####Test performed at: [place] [id number] EST. CREAT CLRon 05-13-2017 Creatinine 160.543 ML/MIN Normal [facility] Comment on above: Order Comment: UNKNO WN Result Comment: This result is an ESTIMATED blood creatinine clearance valuewhich is derived from the patient age, sex, weight, andprevious blood creatinine result. Performed By: #### L 500.89333, L500.10962, L500.46648 ####Test performed at: [place] [id number] Terrell 05-13-2017 FERR 24.7 ng/mL Normal 8-252 [facility] Comment on above: Order Comment: UNKNO WN Performed By: #### L 500.93839, L500.36987, L500.42374 ####Test performed at: [place] [address] GFR ESTIMATEon 05-13-2017 IF AMER > 60 Normal > 60 [facility] Comment on above: Order Comment: UNKNO WN Result Comment: eGFR (Estimated GFR) Units of measure:mL/min/1.73 meters sq.*CALCULATION REVISED 03/10/2015;IDMS-traceable MDRD equationeGFR is derived from the reexpressed MDRD Study equationusing the following parameters: serum creatinine, age,gender and race. An eGFR<60 mL/min/1.73m2 for >3 monthsis consistent with chronic kidney disease. Refer to KDOQIguidelines for clinical interpretation. Performed By: #### L 500.30283, L500.76788, L500.65922 ####Test performed at: [place] [address] IF non-AFR AMER > 60 Normal > 60 [facility] Comment on above: Order Comment: UNKNO WN Performed By: #### L 500.85384, L500.58586, L500.54423 ####Test performed at: [place] [id number] IRON PANELon 05-13-2017 Iron 25 ug/dL Low 50-170 [facility] Comment on above: Order Comment: UNKNO WN Performed By: #### L 500.98326, L500.20827, L500.43226 ####Test performed at: [place] [id number] IRON SAT 12 % Low 25-35 [facility] Comment on above: Order Comment: UNKNO WN Performed By: #### L 500.74018, L500.14363, L500.63574 ####Test performed at: [place] [address] TIBC 215 ug/dL Low 250-450 [facility] Comment on above: Order Comment: UNKNO WN Performed By: #### L 500.37103, L500.59588, L500.88329 ####Test performed at: [address] [address] LIMIT UR TOXon 05-13-2017 PH TOX 5.0 Normal 5.0-8.0 [facility] Comment on above: Order Comment: UNKNO WN Performed By: #### L 500.68214, L500.88178, L500.46587 ####Test performed at: [place] [id number] UR AMPH Negative Normal Negative [facility] Comment on above: Order Comment: UNKNO WN Result Comment: CUTO QE=9664 Performed By: #### L 500.05818, L500.59318, L500.80423 ####Test performed at: [address] [address] UR NANNETTE Negative Normal Negative [facility] Comment on above: Order Comment: UNKNO WN Result Comment: CUTO WF=007 Performed By: #### L 500.89945, L500.54746, L500.99139 ####Test performed at: [address] [address] UR YANDEL Negative Normal Negative [facility] Comment on above: Order Comment: UNKNO WN Result Comment: CUTO SM=921 Performed By: #### L 500.86970, L500.70385, L500.53576 ####Test performed at: [address] [address] UR BUPREN/NORBU Negative Normal Negative [facility] Comment on above: Order Comment: UNKNO WN Result Comment: CUTO FF=10 Performed By: #### L 500.09004, L500.64182, L500.04052 ####Test performed at: [address] [address] UR RADHA/THC Negative Normal Negative [facility] Comment on above: Order Comment: UNKNO WN Result Comment: CUTO FF=50 Performed By: #### L 500.81482, L500.67193, L500.24687 ####Test performed at: [place] [id number] UR PAULO Negative Normal Negative [facility] Comment on above: Order Comment: UNKNO WN Result Comment: CUTO KL=393 Performed By: #### L 500.95466, L500.21563, L500.76999 ####Test performed at: [place] [id number] UR ECSTASY Negative Normal Negative [facility] Comment on above: Order Comment: UNKNO WN Result Comment: CUTO AH=282 Performed By: #### L 500.65002, L500.30461, L500.74120 ####Test performed at: [address] [address] UR METH Negative Normal Negative [facility] Comment on above: Order Comment: UNKNO WN Result Comment: CUTO LM=251 Performed By: #### L 500.35909, L500.09245, L500.82421 ####Test performed at: [place] [id number] UR OPIAT Negative Normal Negative [facility] Comment on above: Order Comment: UNKNO WN Result Comment: CUTO OY=625 Performed By: #### L 500.54289, L500.59803, L500.45866 ####Test performed at: [place] [id number] UR OXYCOCONE Negative Normal Negative [facility] Comment on above: Order Comment: UNKNO WN Result Comment: CUTO CV=549 Performed By: #### L 500.74420, L500.44961, L500.78629 ####Test performed at: [address] [address] UR PCP Negative Normal Negative [facility] Comment on above: Order Comment: UNKNO WN Result Comment: CUTO FF=25 Performed By: #### L 500.38722, L500.67166, L500.08932 ####Test performed at: [place] [id number] PROTIMEon 05-13-2017 INR Coag RelTime (PPP) 1.08 {INR} Normal 0.00-1.20 [facility] Comment on above: Order Comment: UNKNO WN Result Comment: Amrik mmended therapeutic range is an INR of 2.0-3.0 exceptfor prevention of recurrent acute NC and mechanicalprosthetic heart valve where an INR of 2.5-3.5 isrecommended. Performed By: #### L 500.12374, L500.83511, L500.19545 ####Test performed at: [place] [id number] PT SEC 11.0 seconds Normal 9.3-11.2 [facility] Comment on above: Order Comment: UNKNO WN Performed By: #### L 500.26774, L500.02946, L500.84079 ####Test performed at: [place] [id number] PTTon 05-13-2017 aPTT 26.3 s Normal 22.8-32.5 [facility] Comment on above: Order Comment: UNKNO WN Performed By: #### L 500.86855, L500.85433, L500.19835 ####Test performed at: [place] [id number] TROPONIN QUANTon 05-13-2017 Troponin I.cardiac mass conc ng/mL Normal 0.01-0.045 [facility] Comment on above: Order Comment: UNKNO WN Performed By: #### L 500.86247, L500.41271, L500.55469 ####Test performed at: [address] [address] UA COMPLETEon 05-13-2017 Bilirubin (total) Negative Normal NEGATIVE [facility] Comment on above: Order Comment: UNKNO WN Performed By: #### L 500.04863, L500.73137, L500.18825 ####Test performed at: [place] [id number] BLOOD >=1.0 mg/dL Invalid Interpretation Code NEGATIVE [facility] Comment on above: Order Comment: UNKNO WN Performed By: #### L 500.23278, L500.23312, L500.46739 ####Test performed at: [address] [address] EPITH CELLS 6-10 Normal 0-10 [facility] Comment on above: Order Comment: UNKNO WN Performed By: #### L 500.77211, L500.76121, L500.33941 ####Test performed at: [address] [address] Erythrocytes (RBC) 6-10 Invalid Interpretation Code 0-3 [facility] Comment on above: Order Comment: UNKNO WN Performed By: #### L 500.08420, L500.49245, L500.99529 ####Test performed at: [address] [address] Glucose mass conc Negative Normal NEGATIVE [facility] Comment on above: Order Comment: UNKNO WN Performed By: #### L 500.90863, L500.67359, L500.98548 ####Test performed at: [address] [address] KETONE 5 mg/dl Invalid Interpretation Code NEGATIVE [facility] Comment on above: Order Comment: UNKNO WN Performed By: #### L 500.36414, L500.16248, L500.07395 ####Test performed at: [address] [address] LEUK ESTERASE 75 [place]/uL Invalid Interpretation Code NEGATIVE [facility] Comment on above: Order Comment: UNKNO WN Performed By: #### L 500.37377, L500.68273, L500.80977 ####Test performed at: [place] [id number] Protein 30 mg/dL Invalid Interpretation Code NEGATIVE [facility] Comment on above: Order Comment: UNKNO WN Performed By: #### L 500.79722, L500.31483, L500.59977 ####Test performed at: [address] [address] SPEC GRAV 1.028 Normal 1.005-1.030 [facility] Comment on above: Order Comment: UNKNO WN Performed By: #### L 500.01904, L500.89192, L500.98061 ####Test performed at: [place] [id number] UA ASC ACID Negative Normal [facility] Comment on above: Order Comment: UNKNO WN Performed By: #### L 500.70608, L500.17856, L500.77939 ####Test performed at: [place] [id number] UA PH 5.0 Normal 5.0-8.0 [facility] Comment on above: Order Comment: UNKNO WN Performed By: #### L 500.96491, L500.94077, L500.94378 ####Test performed at: [address] [address] Urine, appearance CLOUDY Invalid Interpretation Code CLEAR [facility] Comment on above: Order Comment: UNKNO WN Performed By: #### L 500.18359, L500.84416, L500.22617 ####Test performed at: [address] [address] Urine, color FRANCESCO Invalid Interpretation Code YELLOW [facility] Comment on above: Order Comment: UNKNO WN Performed By: #### L 500.62143, L500.12532, L500.42345 ####Test performed at: [address] [address] Urine, mucus presence in sediment Large Normal [facility] Comment on above: Order Comment: UNKNO WN Performed By: #### L 500.58616, L500.14534, L500.09020 ####Test performed at: [address] [address] Urine, nitrite presence Negative Normal NEGATIVE [facility] Comment on above: Order Comment: UNKNO WN Performed By: #### L 500.35245, L500.09592, L500.26566 ####Test performed at: [address] [address] UROBIL 4.0 mg/dL Invalid Interpretation Code NORMAL [facility] Comment on above: Order Comment: UNKNO WN Performed By: #### L 500.03276, L500.53498, L500.11060 ####Test performed at: [address] [address] WBC (Leukocytes) 6-10 Invalid Interpretation Code 0-5 [facility] Comment on above: Order Comment: UNKNO WN Performed By: #### L 500.24570, L500.10476, L500.46883 ####Test performed at: [address] [address] CBC W/DIFFon 05-12-2017 BASO ABS 0.0 K/uL Normal 0.0-0.2 [facility] Comment on above: Order Comment: UNKNO WN Performed By: #### L 200.54122 ####Test performed at: [address] [address] Basophils/100 WBC Auto (Bld) 0.6 % Normal [facility] Comment on above: Order Comment: UNKNO WN Performed By: #### L 200.52745 ####Test performed at: [address] [address] EOS ABS 0.2 K/uL Normal 0.0-0.5 [facility] Comment on above: Order Comment: UNKNO WN Performed By: #### L 200.51045 ####Test performed at: [address] [address] Eosinophils/100 leukocytes 2.8 % Normal [facility] Comment on above: Order Comment: UNKNO WN Performed By: #### L 200.95719 ####Test performed at: [address] [address] IG % 0.1 % Normal [facility] Comment on above: Order Comment: UNKNO WN Performed By: #### L 200.41573 ####Test performed at: [address] [address] IG ABS 0.01 K/uL Normal 0-0.05 [facility] Comment on above: Order Comment: UNKNO WN Performed By: #### L 200.54271 ####Test performed at: [address] [address] Lymphocytes 2.7 10*3/uL Normal 1.2-3.5 [facility] Comment on above: Order Comment: UNKNO WN Performed By: #### L 200.86550 ####Test performed at: [address] [address] Lymphocytes/100 leukocytes 37.0 % Normal [facility] Comment on above: Order Comment: UNKNO WN Performed By: #### L 200.52959 ####Test performed at: [address] [address] MONO ABS 0.6 K/uL Normal 0.0-1.0 [facility] Comment on above: Order Comment: UNKNO WN Performed By: #### L 200.35714 ####Test performed at: [address] [address] Monocytes/100 leukocytes 8.0 % Normal [facility] Comment on above: Order Comment: UNKNO WN Performed By: #### L 200.55759 ####Test performed at: [address] [address] Neutrophils 3.7 10*3/uL Normal 1.4-6.6 [facility] Comment on above: Order Comment: UNKNO WN Performed By: #### L 200.31588 ####Test performed at: [address] [address] Neutrophils/100 WBC Auto (Bld) 51.5 % Normal [facility] Comment on above: Order Comment: UNKNO WN Performed By: #### L 200.97531 ####Test performed at: [address] [address] Erythrocyte distribution width Auto Ratio (RBC) 15.5 % High 11.5-14.5 [facility] Comment on above: Order Comment: UNKNO WN Performed By: #### L 200.75361 ####Test performed at: [address] [address] Erythrocytes (RBC) 0.000 10*6/uL Normal 0-0.012 [facility] Comment on above: Order Comment: UNKNO WN Performed By: #### L 200.32946 ####Test performed at: [address] [address] Erythrocytes (RBC) 4.20 10*6/uL Normal 3.5-5.5 [facility] Comment on above: Order Comment: UNKNO WN Performed By: #### L 200.86303 ####Test performed at: [place] [address] Hematocrit (HCT) 33.1 % Low 36.0-48.0 [facility] Comment on above: Order Comment: UNKNO WN Performed By: #### L 200.50280 ####Test performed at: [place] [address] Hemoglobin mass conc (Bld) 10.4 g/dL Low 12.0-15.0 [facility] Comment on above: Order Comment: UNKNO WN Result Comment: Delt a: 12.8 on 04/22/17 Performed By: #### L 200.44181 ####Test performed at: [place] [address] MCH 24.8 pg Low 25.4-34.6 [facility] Comment on above: Order Comment: UNKNO WN Performed By: #### L 200.99425 ####Test performed at: [place] [address] MCHC mass conc (RBC) 31.4 g/dL Low 31.5-36.5 [facility] Comment on above: Order Comment: UNKNO WN Performed By: #### L 200.42077 ####Test performed at: [place] [address] MCV 78.8 fL Low 79.0-98.0 [facility] Comment on above: Order Comment: UNKNO WN Performed By: #### L 200.18685 ####Test performed at: [place] [address] NRBC % 0.0 /100 WBC Normal 0-0.2 [facility] Comment on above: Order Comment: UNKNO WN Performed By: #### L 200.28176 ####Test performed at: [address] [address] Platelet mean volume (PMV) 10.6 fL Normal 8.7-12.4 [facility] Comment on above: Order Comment: UNKNO WN Performed By: #### L 200.97727 ####Test performed at: [address] [address] Platelets 318 10*3/uL Normal 140-440 [facility] Comment on above: Order Comment: UNKNO WN Performed By: #### L 200.06258 ####Test performed at: [address] [address] WBC (Leukocytes) 7.2 10*3/uL Normal 3.9-11.0 [facility] Comment on above: Order Comment: UNKNO WN Performed By: #### L 200.26665 ####Test performed at: [address] [address] COMP META PANELon 05-12-2017 Alanine aminotransferase (ALT) 19 U/L Normal 13-61 [facility] Comment on above: Order Comment: UNKNO WN Performed By: #### L 200.81258 ####Test performed at: [address] [address] Albumin 3.0 g/dL Low 3.4-5.0 [facility] [facility] Comment on above: Order Comment: UNKNO WN Performed By: #### L 200.22885 ####Test performed at: [address] [address] ALK PHOS TOTAL 93 U/L Normal 45-117 [facility] Comment on above: Order Comment: UNKNO WN Performed By: #### L 200.59992 ####Test performed at: [address] [address] Aspartate aminotransferase (AST) 17 U/L Normal 15-37 [facility] Comment on above: Order Comment: UNKNO WN Performed By: #### L 200.34780 ####Test performed at: [address] [address] BILI TOTAL 0.2 mg/dL Normal 0.2-1.0 [facility] Comment on above: Order Comment: UNKNO WN Performed By: #### L 200.95061 ####Test performed at: [address] [address] Calcium 8.5 mg/dL Normal 8.5-10.1 [facility] Comment on above: Order Comment: UNKNO WN Performed By: #### L 200.69202 ####Test performed at: [address] [address] Chloride 110 mmol/L High 98-107 [facility] Comment on above: Order Comment: UNKNO WN Performed By: #### L 200.20686 ####Test performed at: [address] [address] CO2 24 mmol/L Normal 21-32 [facility] Comment on above: Order Comment: UNKNO WN Performed By: #### L 200.33828 ####Test performed at: [address] [address] Creatinine 1.030 mg/dL High 0.550-1.020 [facility] Comment on above: Order Comment: UNKNO WN Performed By: #### L 200.17372 ####Test performed at: [address] [address] Glucose mass conc 82 mg/dL Normal 74-106 [facility] Comment on above: Order Comment: UNKNO WN Performed By: #### L 200.19209 ####Test performed at: [address] [address] Potassium molar conc 3.8 mmol/L Normal 3.5-5.1 [facility] Comment on above: Order Comment: UNKNO WN Performed By: #### L 200.94034 ####Test performed at: [address] [address] Protein 7.2 g/dL Normal 6.4-8.2 [facility] Comment on above: Order Comment: UNKNO WN Performed By: #### L 200.07261 ####Test performed at: [address] [address] Sodium 141 mmol/L Normal 136-145 [facility] Comment on above: Order Comment: UNKNO WN Performed By: #### L 200.82554 ####Test performed at: [place] [address] Urea nitrogen 11 mg/dL Normal 7-18 [facility] Comment on above: Order Comment: UNKNO WN Performed By: #### L 200.97490 ####Test performed at: [place] [address] CT THORAX W CON PE PROTOCOLo n 05-12-2017 CT THORAX W CON PE PROTOCOL STUDY:CT THORAX W CON PE PROTOCOL; 05/12/2017 10:15 pmINDICATION:elevated d-dimer, CP.COMPARISON:None.ACCESSI ON NUMBER(S):[id number] LUCY CLINICIAN:Vince Garnett:Helical data acquisition of the chest was obtained with IV contrast.Images were reformatted in axial, coronal, and sagittal planes.FINDINGS:POTENTIAL LIMITATIONS OF THE STUDY:NoneHEART AND VESSELS:No large central filling defects to suggest pulmonary embolism.Smaller subsegmental pulmonary emboli cannot be entirely excluded.Main pulmonary artery and its branches are normal in caliber.The thoracic aorta is of normal course and caliber.The cardiac chambers are not enlarged.No evidence of pericardial effusion.MEDIASTINUM AND COLE, LOWER NECK AND AXILLA:The visualized thyroid gland is within normal limits.No evidence of thoracic lymphadenopathy by CT criteria.Esophagus appears within normal limits as seen.LUNGS AND AIRWAYS:The trachea and central airways are patent. No endobronchial lesion.Lungs are clear.UPPER ABDOMEN:The visualized subdiaphragmatic structures demonstrate no remarkablefindings.CHEST WALL AND OSSEOUS STRUCTURES:There are no suspicious osseous lesions. Multilevel degenerativechanges are presentIMPRESSION:No large central filling defects to suggest pulmonary embolism.Smaller subsegmental pulmonary emboli cannot be entirely excluded. Normal [facility] D-DIMER QUANTon 05-12-2017 D-DIMER QUANT > 5000 High <500 [facility] Comment on above: Order Comment: UNKNO WN Result Comment: The CUT-OFF value for the evaluation of VenousThromboEmbolism (VTE) is <500 ng/mL FEU. Performed By: #### L 500.60518, L500.52542, L500.68041 ####Test performed at: [place] [address] GFR ESTIMATEon 05-12-2017 IF AMER > 60 Normal > 60 [facility] Comment on above: Order Comment: UNKNO WN Result Comment: eGFR (Estimated GFR) Units of measure:mL/min/1.73 meters sq.*CALCULATION REVISED 03/10/2015;IDMS-traceable MDRD equationeGFR is derived from the reexpressed MDRD Study equationusing the following parameters: serum creatinine, age,gender and race. An eGFR<60 mL/min/1.73m2 for >3 monthsis consistent with chronic kidney disease. [facility]. Performed By: #### L 200.49377 ####Test performed at: [place] [address] IF non-AFR AMER > 60 Normal > 60 [facility] Comment on above: Order Comment: UNKNO WN Performed By: #### L 200.33689 ####Test performed at: [place] [address] LIMIT UR TOXon 05-12-2017 TOX COMMENT *PLEASE NOTE: Normal [facility] Comment on above: Order Comment: UNKNO WN Result Comment: UNCO NFIRMED Toxicology results. For MEDICAL purposes only. Performed By: #### L 500.62007, L500.92601, L500.82503 ####Test performed at: [place] [id number] MGon 05-12-2017 Magnesium 2.0 mg/dL Normal 1.6-2.6 [facility] Comment on above: Order Comment: UNKNO WN Performed By: #### L 200.01209 ####Test performed at: [place] [id number] PORTABLE CHESTon 05-12-2017 PORTABLE CHEST STUDY:PORTABLE CHEST ; 05/12/2017 8:54 pmINDICATION:Chest pain .COMPARISON:04/22/2017ACCES SHADY NUMBER(S):[id number] LUCY CLINICIAN:Vince Oquendo:The cardiac silhouette is normal in size. No focal airspaceconsolidation or pleural effusion.No pneumothorax.IMPRESSION:No airspace consolidation or pleural effusion. Normal [facility] TROPONIN QUANTon 05-12-2017 Troponin I.cardiac mass conc ng/mL Normal 0.01-0.045 [facility] Comment on above: Order Comment: UNKNO WN Performed By: #### L 200.71909 ####Test performed at: [address] [address] UR HCG QUALon 05-12-2017 UR HCG QUAL Negative Normal [facility] Comment on above: Order Comment: UNKNO WN Performed By: #### L 500.96416, L500.56768, L500.17478 ####Test performed at: [address] [address] EKGon 04-25-2017 EKG Acquired on 04/22/20 17 1419Vent. Rate : 064 BPM Atrial Rate : 064 BPMP-R Int : 134 ms QRS Dur : 070 msQT Int : 400 ms P-R-T Axes : 022 037 031 degreesQTc Int : 412 msNormal sinus rhythmNormal ECGNo previous ECGs availableConfirmed by SHARON MCKEON MD ([id number]) on 04/25/2017 9:44:10 AMReferred By: Confirmed By:SHARON MCKEON [id number] 2016 ---------[facility] PT NAME: AL LEWIS#: [id number] [place] [address] ACCT: [id number]: 94EKG REPORT Normal [facility] 13 DRUG PM TOXon 04-22-2017 13 DRUG PM SUM NotDone Normal [facility] Comment on above: Order Comment: UNKNO WN Result Comment: TEST (S): 13 DRUG PM SUM COMMENT: OE CAN REQ PERSON NOTIFIED: Mesfin MCINTOSHCANCELLED: 04/22/17 at 1555 by GLBCAT. Locn:[facility] Performed By: #### L 600.20566, L600.07976 ####Test performed at: [place] [address]#### L600.79494 ####Test performed at: [facility] [id number] [place] [id number] CBC W/DIFFon 04-22-2017 BASO ABS 0.0 K/uL Normal 0.0-0.2 [facility] Comment on above: Order Comment: UNKNO WN Performed By: #### L 200.64887 ####Test performed at: [place] [address] Basophils/100 WBC Auto (Bld) 0.4 % Normal [facility] Comment on above: Order Comment: UNKNO WN Performed By: #### L 200.11886 ####Test performed at: [place] [address] EOS ABS 0.2 K/uL Normal 0.0-0.5 [facility] Comment on above: Order Comment: UNKNO WN Performed By: #### L 200.02775 ####Test performed at: [address] [address] Eosinophils/100 leukocytes 1.7 % Normal [facility] Comment on above: Order Comment: UNKNO WN Performed By: #### L 200.02851 ####Test performed at: [address] [address] Erythrocyte distribution width Auto Ratio (RBC) 16.9 % High 11.5-14.5 [facility] Comment on above: Order Comment: UNKNO WN Performed By: #### L 200.03206 ####Test performed at: [address] [address] Erythrocytes (RBC) 5.08 10*6/uL Normal 3.5-5.5 [facility] Comment on above: Order Comment: UNKNO WN Performed By: #### L 200.54085 ####Test performed at: [address] [address] Erythrocytes (RBC) 0.000 10*6/uL Normal 0-0.012 [facility] Comment on above: Order Comment: UNKNO WN Performed By: #### L 200.82294 ####Test performed at: [address] [address] Hematocrit (HCT) 40.7 % Normal 36.0-48.0 [facility] Comment on above: Order Comment: UNKNO WN Performed By: #### L 200.46190 ####Test performed at: [address] [address] Hemoglobin mass conc (Bld) 12.8 g/dL Normal 12.0-15.0 [facility] Comment on above: Order Comment: UNKNO WN Performed By: #### L 200.17886 ####Test performed at: [address] [address] IG % 1.0 % Normal [facility] Comment on above: Order Comment: UNKNO WN Performed By: #### L 200.95899 ####Test performed at: [address] [address] IG ABS 0.09 K/uL High 0-0.05 [facility] Comment on above: Order Comment: UNKNO WN Performed By: #### L 200.87514 ####Test performed at: [address] [address] Lymphocytes 2.6 10*3/uL Normal 1.2-3.5 [facility] Comment on above: Order Comment: UNKNO WN Performed By: #### L 200.81831 ####Test performed at: [address] [address] Lymphocytes/100 leukocytes 27.7 % Normal [facility] Comment on above: Order Comment: UNKNO WN Performed By: #### L 200.28475 ####Test performed at: [address] [address] MCH 25.2 pg Low 25.4-34.6 [facility] Comment on above: Order Comment: UNKNO WN Performed By: #### L 200.93547 ####Test performed at: [address] [address] MCHC mass conc (RBC) 31.4 g/dL Low 31.5-36.5 [facility] Comment on above: Order Comment: UNKNO WN Performed By: #### L 200.25882 ####Test performed at: [address] [address] MCV 80.1 fL Normal 79.0-98.0 [facility] Comment on above: Order Comment: UNKNO WN Performed By: #### L 200.14720 ####Test performed at: [address] [address] MONO ABS 0.6 K/uL Normal 0.0-1.0 [facility] Comment on above: Order Comment: UNKNO WN Performed By: #### L 200.75969 ####Test performed at: [address] [address] Monocytes/100 leukocytes 5.9 % Normal [facility] Comment on above: Order Comment: UNKNO WN Performed By: #### L 200.89512 ####Test performed at: [address] [address] Neutrophils 5.9 10*3/uL Normal 1.4-6.6 [facility] Comment on above: Order Comment: UNKNO WN Performed By: #### L 200.71444 ####Test performed at: [address] [address] Neutrophils/100 WBC Auto (Bld) 63.3 % Normal [facility] Comment on above: Order Comment: UNKNO WN Performed By: #### L 200.76663 ####Test performed at: [address] [address] NRBC % 0.0 /100 WBC Normal 0-0.2 [facility] Comment on above: Order Comment: UNKNO WN Performed By: #### L 200.44779 ####Test performed at: [address] [address] Platelet mean volume (PMV) 10.8 fL Normal 8.7-12.4 [facility] Comment on above: Order Comment: UNKNO WN Performed By: #### L 200.35349 ####Test performed at: [address] [address] Platelets 325 10*3/uL Normal 140-440 [facility] Comment on above: Order Comment: UNKNO WN Performed By: #### L 200.92631 ####Test performed at: [address] [address] WBC (Leukocytes) 9.3 10*3/uL Normal 3.9-11.0 [facility] Comment on above: Order Comment: UNKNO WN Performed By: #### L 200.23589 ####Test performed at: [address] [address] COMP META PANELon 04-22-2017 Alanine aminotransferase (ALT) 31 U/L Normal 13-61 [facility] Comment on above: Order Comment: UNKNO WN Performed By: #### L 500.04309, L500.66489, L500.35127 ####Test performed at: [place] [id number] Albumin 4.1 g/dL Normal 3.4-5.0 [facility] Comment on above: Order Comment: UNKNO WN Performed By: #### L 500.51922, L500.21706, L500.45870 ####Test performed at: [place] [id number] ALK PHOS TOTAL 126 U/L High 45-117 [facility] Comment on above: Order Comment: UNKNO WN Performed By: #### L 500.25823, L500.43436, L500.43056 ####Test performed at: [address] [address] Aspartate aminotransferase (AST) 23 U/L Normal 15-37 [facility] Comment on above: Order Comment: UNKNO WN Performed By: #### L 500.67212, L500.12449, L500.94058 ####Test performed at: [place] [id number] BILI TOTAL 0.4 mg/dL Normal 0.2-1.0 [facility] Comment on above: Order Comment: UNKNO WN Performed By: #### L 500.53123, L500.81784, L500.72154 ####Test performed at: [address] [address] Calcium 9.4 mg/dL Normal 8.5-10.1 [facility] Comment on above: Order Comment: UNKNO WN Performed By: #### L 500.30929, L500.82913, L500.20805 ####Test performed at: [place] [id number] Chloride 109 mmol/L High 98-107 [facility] Comment on above: Order Comment: UNKNO WN Performed By: #### L 500.92109, L500.40844, L500.53366 ####Test performed at: [address] [address] CO2 22 mmol/L Normal 21-32 [facility] Comment on above: Order Comment: UNKNO WN Performed By: #### L 500.60188, L500.27469, L500.83406 ####Test performed at: [address] [address] Creatinine 1.040 mg/dL High 0.550-1.020 [facility] Comment on above: Order Comment: UNKNO WN Performed By: #### L 500.12946, L500.32466, L500.66820 ####Test performed at: [address] [address] Glucose mass conc 79 mg/dL Normal 74-106 [facility] Comment on above: Order Comment: UNKNO WN Performed By: #### L 500.46143, L500.01218, L500.01902 ####Test performed at: [address] [address] Potassium molar conc 4.2 mmol/L Normal 3.5-5.1 [facility] Comment on above: Order Comment: UNKNO WN Performed By: #### L 500.98858, L500.22555, L500.79869 ####Test performed at: [place] [address] Protein 8.5 g/dL High 6.4-8.2 [facility] Comment on above: Order Comment: UNKNO WN Performed By: #### L 500.89581, L500.11767, L500.37950 ####Test performed at: [place] [id number] Sodium 140 mmol/L Normal 136-145 [facility] Comment on above: Order Comment: UNKNO WN Performed By: #### L 500.03269, L500.28536, L500.21004 ####Test performed at: [place] [id number] Urea nitrogen 11 mg/dL Normal 7-18 [facility] Comment on above: Order Comment: UNKNO WN Performed By: #### L 500.36429, L500.69120, L500.11263 ####Test performed at: [place] [id number] CT HEAD/BRAIN WO CONon 04-22 CT HEAD/BRAIN WO CON STUDY:CT HEAD/BRAIN WO CON; 04/22/2017 3:25 pmINDICATION:head pain .COMPARISON:None. LUCY CLINICIAN:Vince Garnett:CT of the brain from the skull vertex to the skull base, withoutintravenous contrast.FINDINGS:Acute intracranial hemorrhage: NegativeAcute subdural hematoma: NegativeAcute intracranial mass effect: NegativeCT evidence of acute / subacute territorial ischemia: NegativeVentricles: Normal caliber and configurationOther brain findings: No additional findings to noteIncluded paranasal sinuses: All clearIncluded mastoid air cells: All clearSkull: No depressed skull fractureExtracranial soft tissues: No substantial laceration or other softtissue injury to the scalp, occular globes or other extracranial softtissues.IMPRESSION:NO ACUTE INTRACRANIAL PROCESS Normal [facility] CT SINUSES/FACIAL WO CONon 1 06-23-2016 CT SINUSES/FACIAL WO CON STUDY:CT SINUSES/FACIAL WO CON; 04/22/2017 3:36 pmINDICATION:laveration, facial pain .COMPARISON:None. LUCY CLINICIAN:Vince Garnett:CT maxillofacial bones without intravenous contrastFINDINGS:The maxillofacial bones are intact and in good alignment throughout.Soft tissues grossly intact. No large skin defect, subcutaneousradiopaque foreign body or subcutaneous gasSmall mucous retention cysts or polyps in both maxillary sinuses.Elsewhere the sinuses are completely clearIMPRESSION:NO ACUTE FRACTURE OR SUBLUXATION Normal [facility] EKGon 04-22-2017 EKG Acquired on 04/22/20 17 1419Vent. Rate : 064 BPM Atrial Rate : 064 BPMP-R Int : 134 ms QRS Dur : 070 msQT Int : 400 ms P-R-T Axes : 022 037 031 degreesQTc Int : 412 msNormal sinus rhythmNormal ECGNo previous ECGs availableConfirmed by SHARON MCKEON MD ([id number]) on 04/25/2017 9:44:10 AMReferred By: Confirmed By:SHARON MCKEON [id number] 2016 ---------[facility] PT NAME: AGUEDA LEWIS#: [id number] [place] [address] ACCT: [id number]: 94EKG REPORT Normal [facility] GFR ESTIMATEon 04-22-2017 IF AMER > 60 Normal > 60 [facility] Comment on above: Order Comment: UNKNO WN Result Comment: eGFR (Estimated GFR) Units of measure:mL/min/1.73 meters sq.*CALCULATION REVISED 03/10/2015;IDMS-traceable MDRD equationeGFR is derived from the reexpressed MDRD Study equationusing the following parameters: serum creatinine, age,gender and race. An eGFR<60 mL/min/1.73m2 for >3 monthsis consistent with chronic kidney disease. [facility]. Performed By: #### L 500.08548, L500.89191, L500.87701 ####Test performed at: [place] [address] IF non-AFR AMER > 60 Normal > 60 [facility] Comment on above: Order Comment: UNKNO WN Performed By: #### L 500.13689, L500.05744, L500.09856 ####Test performed at: [place] [address] LIMIT UR TOXon 04-22-2017 UR AMPH Negative Normal Negative [facility] Comment on above: Order Comment: UNKNO WN Result Comment: CUTO WW=3862 Performed By: #### L 200.36353 ####Test performed at: [place] [address] UR NANNETTE Negative Normal Negative [facility] Comment on above: Order Comment: UNKNO WN Result Comment: CUTO OJ=780 Performed By: #### L 200.60187 ####Test performed at: [address] [address] UR YANDEL Negative Normal Negative [facility] Comment on above: Order Comment: UNKNO WN Result Comment: CUTO GH=990 Performed By: #### L 200.34050 ####Test performed at: [place] [address] UR RADHA/THC Negative Normal Negative [facility] Comment on above: Order Comment: UNKNO WN Result Comment: CUTO FF=50 Performed By: #### L 200.89502 ####Test performed at: [place] [id number] UR PAULO Negative Normal Negative [facility] Comment on above: Order Comment: UNKNO WN Result Comment: CUTO HB=726 Performed By: #### L 200.88791 ####Test performed at: [place] [id number] UR ECSTASY Negative Normal Negative [facility] Comment on above: Order Comment: UNKNO WN Result Comment: CUTO HJ=805 Performed By: #### L 200.61453 ####Test performed at: [place] [address] UR METH Negative Normal Negative [facility] Comment on above: Order Comment: UNKNO WN Result Comment: CUTO TK=844 Performed By: #### L 200.96530 ####Test performed at: [place] [id number] UR OPIAT Negative Normal Negative [facility] Comment on above: Order Comment: UNKNO WN Result Comment: CUTO FY=343 Performed By: #### L 200.83576 ####Test performed at: [place] [id number] UR OXYCOCONE Negative Normal Negative [facility] Comment on above: Order Comment: UNKNO WN Result Comment: CUTO XT=546 Performed By: #### L 200.02954 ####Test performed at: [place] [id number] UR PCP Negative Normal Negative [facility] Comment on above: Order Comment: UNKNO WN Result Comment: CUTO FF=25 Performed By: #### L 200.21982 ####Test performed at: [place] [address] PH TOX 5.0 Normal 5.0-8.0 [facility] Comment on above: Order Comment: UNKNO WN Performed By: #### L 200.59410 ####Test performed at: [address] [address] TOX COMMENT *PLEASE NOTE: Normal [facility] Comment on above: Order Comment: UNKNO WN Result Comment: UNCO NFIRMED Toxicology results. For MEDICAL purposes only. Performed By: #### L 200.33597 ####Test performed at: [place] [address] PORTABLE CHESTon 04-22-2017 PORTABLE CHEST STUDY:PORTABLE CHEST ; 04/22/2017 2:15 pmINDICATION:dizzy.COMPARI SON:None. LUCY CLINICIAN:Vince AvilaFINDINGS:CARDIOMEDIA STINAL SILHOUETTE:Cardiomediastin al silhouette is normal in size and configuration.LUNGS:Lungs are clear.ABDOMEN:No remarkable upper abdominal findings.BONES:No acute osseous changes.IMPRESSION:No evidence of acute cardiopulmonary process. Normal [facility] TROPONIN QUANTon 04-22-2017 Troponin I.cardiac mass conc ng/mL Normal 0.01-0.045 [facility] Comment on above: Order Comment: UNKNO WN Performed By: #### L 500.00637, L500.06240, L500.80748 ####Test performed at: [place] [address] UA COMPLETEon 04-22-2017 AMORPHOUS CRYST Trace Normal [facility] Comment on above: Order Comment: UNKNO WN Performed By: #### L 600.91362, L600.16960 ####Test performed at: [place] [address]#### L600.27789 ####Test performed at: [facility] [id number] [address] [place], [place] [address] Bilirubin (total) Negative Normal NEGATIVE [facility] Comment on above: Order Comment: UNKNO WN Performed By: #### L 600.32872, L600.51534 ####Test performed at: [place] [address] [address] [place] [address]#### L600.80578 ####Test performed at: [facility] [id number] [address] [place], [place] [address] BLOOD >=1.0 mg/dL Invalid Interpretation Code NEGATIVE [facility] Comment on above: Order Comment: UNKNO WN Performed By: #### L 600.78977, L600.89980 ####Test performed at: [place] [address] [place] [address]#### L600.62794 ####Test performed at: [facility] [id number] [address] [place], [place] [id number] EPITH CELLS 6-10 Normal 0-10 [facility] Comment on above: Order Comment: UNKNO WN Performed By: #### L 600.30499, L600.81913 ####Test performed at: [place] [address]#### L600.66923 ####Test performed at: [facility] [id number] [address] [place] [address] Erythrocytes (RBC) 21-50 Invalid Interpretation Code 0-3 [facility] Comment on above: Order Comment: UNKNO WN Performed By: #### L 600.07677, L600.67546 ####Test performed at: [place] [id number]#### L600.23327 ####Test performed at: [facility] [id number] [address] [place], [place] [address] Glucose mass conc Negative Normal NEGATIVE [facility] Comment on above: Order Comment: UNKNO WN Performed By: #### L 600.85376, L600.47872 ####Test performed at: [place] [address]#### L600.47029 ####Test performed at: [facility] [id number] [address] [place], [place] [address] KETONE Negative Normal NEGATIVE [facility] Comment on above: Order Comment: UNKNO WN Performed By: #### L 600.37204, L600.29246 ####Test performed at: [place] [address]#### L600.66250 ####Test performed at: [facility] [id number] [address] LEUK ESTERASE 25 [place]/uL Invalid Interpretation Code NEGATIVE [place] [facility] Comment on above: Order Comment: UNKNO WN Performed By: #### L 600.20511, L600.87279 ####Test performed at: [place] [address]#### L600.29272 ####Test performed at: [facility] [id number] [address] [place], [place] [address] Protein Negative Normal NEGATIVE [facility] Comment on above: Order Comment: UNKNO WN Performed By: #### L 600.59273, L600.50771 ####Test performed at: [place] [address]#### L600.50638 ####Test performed at: [facility] [id number] [address] [place], [place] [address] SPEC GRAV 1.011 Normal 1.005-1.030 [facility] Comment on above: Order Comment: UNKNO WN Performed By: #### L 600.72896, L600.64211 ####Test performed at: [place] [address]#### L600.62282 ####Test performed at: [facility] [id number] [address] UA ASC ACID Negative Normal [facility] Comment on above: Order Comment: UNKNO WN Performed By: #### L 600.04058, L600.53513 ####Test performed at: [place] [address]#### L600.01983 ####Test performed at: [facility] [id number] [address] [place], [place] [address] UA PH 5.0 Normal 5.0-8.0 [facility] Comment on above: Order Comment: UNKNO WN Performed By: #### L 600.53200, L600.37025 ####Test performed at: [place] [address]#### L600.05623 ####Test performed at: [facility] [id number] [address] Urine, appearance CLEAR Normal CLEAR [facility] Comment on above: Order Comment: UNKNO WN Performed By: #### L 600.88782, L600.21023 ####Test performed at: [place] [address]#### L600.83802 ####Test performed at: [facility] [id number] [address] [place] [address] Urine, bacteria in sediment Small Invalid Interpretation Code NONE OBSERV [facility] Comment on above: Order Comment: UNKNO WN Performed By: #### L 600.11100, L600.09259 ####Test performed at: [place] [address]#### L600.06445 ####Test performed at: [facility] [id number] [address] Urine, color YELLOW Normal YELLOW [facility] Comment on above: Order Comment: UNKNO WN Performed By: #### L 600.70864, L600.23202 ####Test performed at: [place] [address]#### L600.00218 ####Test performed at: [facility] [id number] [address] Urine, mucus presence in sediment Small Normal [facility] Comment on above: Order Comment: UNKNO WN Performed By: #### L 600.46018, L600.19078 ####Test performed at: [place] [address]#### L600.11113 ####Test performed at: [facility] [id number] [address] Urine, nitrite presence Negative Normal NEGATIVE [facility] Comment on above: Order Comment: UNKNO WN Performed By: #### L 600.93825, L600.40684 ####Test performed at: [place] [address]#### L600.48889 ####Test performed at: [facility] [id number] [address] [place] [address] UROBIL NORMAL Normal NORMAL [facility] Comment on above: Order Comment: UNKNO WN Performed By: #### L 600.60294, L600.26890 ####Test performed at: [place] [address]#### L600.36894 ####Test performed at: [facility] [id number] [address] [place] [address] WBC (Leukocytes) 11-15 Invalid Interpretation Code 0-5 [facility] Comment on above: Order Comment: UNKNO WN Performed By: #### L 600.43840, L600.50084 ####Test performed at: [place] [address]#### L600.60433 ####Test performed at: [facility] [id number] [address] UR HCG QUALon 04-22-2017 UR HCG QUAL Negative Normal [facility] Comment on above: Order Comment: UNKNO WN Performed By: #### L 600.05232, L600.93098 ####Test performed at: [facility] [address] [place] [address]#### L600.70049 ####Test performed at: [facility] [id number] [address] [place] [id number] GC + CHLAMYDIA BY AMPLIFIED DETECTIONon 03-09-2017 CHLAMYDIA TRACH.,AMPLIFIED Positive Abnormal NEGATIVE [facility] Comment on above: Result Comment: Perf ormance characteristics for Chlamydia trachomatis testing on femaleurine samples has been validated by [facility].Testing on this sample type is not FDA-approved, but such approval is notnecessary. This laboratory is certified by CLIA to perform high complexitytesting. Performed By: #### B LCV1 ####[facility] [place] [address] N.GONORRHEA,AMPLIFIE D Negative Normal NEGATIVE [facility] Comment on above: Result Comment: Perf ormance characteristics for Neisseria gonorrhoeae testing on femaleurine samples has been validated by [facility].Testing on this sample type is not FDA-approved, but such approval is notnecessary. This laboratory is certified by CLIA to perform high complexitytesting. Performed By: #### B LCV1 ####[facility] [place] [address] RUBELLA IGG ABon 03-09-2017 RUBELLA IGG AB 25.4 IU/ML Normal [facility] Comment on above: Result Comment: REF VALUESNON-IMMUNE: < 5EQUIVOCAL: 5-9IMMUNE: >=10 Performed By: #### B LCV1 ####[facility] [place] [address] TYPE + SCREENon 03-08-2017 ABO TYPE Canceled Normal [facility] Comment on above: Order Comment: TEST TYPE + SCREEN WAS CANCELLED, 03/07/2017 10:18 ?Cancel Reason: PatientDischarged. Performed By: #### B LCV1 ####[facility] [place] [address] ANTIBODY SCREEN Canceled Normal [facility] Comment on above: Order Comment: TEST TYPE + SCREEN WAS CANCELLED, 03/07/2017 10:18 ?Cancel Reason: PatientDischarged. Performed By: #### B LCV1 ####[facility] [place] [address] RH TYPE Canceled Normal [facility] Comment on above: Order Comment: TEST TYPE + SCREEN WAS CANCELLED, 03/07/2017 10:18 ?Cancel Reason: PatientDischarged. Performed By: #### B LCV1 ####[facility] [place] [address] CBCon 03-07-2017 Erythrocyte distribution width Auto Ratio (RBC) 15.2 % High 11.5 - 14.5 [facility] Comment on above: Performed By: #### C BC ####[facility] [place] [address] Erythrocytes (RBC) 4.71 x10E12/L Normal 4.00 - 5.20 [facility] Comment on above: Performed By: #### C BC ####[facility] [place] [address] Hematocrit (HCT) 37.8 % Normal 36.0 - 46.0 [facility] Comment on above: Performed By: #### C BC ####[facility] [place] [address] Hemoglobin mass conc (Bld) 11.5 g/dL Low 12.0 - 16.0 [facility] Comment on above: Performed By: #### C BC ####[facility] [place] [address] MCHC mass conc (RBC) 30.4 g/dL Low 32.0 - 36.0 [facility] Comment on above: Performed By: #### C BC ####[facility] [place] [address] MCV 80 fL Normal 80 - 100 [facility] Comment on above: Performed By: #### C BC ####[facility] [place] [address] Nucleated erythrocytes 0.0 /100 WBC Normal 0.0-0.0 [facility] Comment on above: Performed By: #### C BC ####[facility] [place] [address] Platelets 206 10*3/uL Normal 150 - 450 [facility] Comment on above: Performed By: #### C BC ####[facility] [place] [address] WBC (Leukocytes) 9.0 10*3/uL Normal 4.4 - 11.3 [facility] Comment on above: Performed By: #### C BC ####[facility] [place] [address] COMPREHENSIVE PANELon 2016 Alanine aminotransferase (ALT) 11 U/L Normal 7 - 45 [facility] Comment on above: Result Comment: Laureen ents treated with Sulfasalazine may generate falsely decreased results for ALT. Performed By: #### C MP ####[facility] [place] [address] Albumin 3.2 g/dL Low 3.4 - 5.0 [facility] Comment on above: Performed By: #### C MP ####[facility] [place] [address] Alkaline phosphatase (ALP) 224 U/L High 33 - 110 [facility] Comment on above: Performed By: #### C MP ####[facility] [place] [address] Anion gap 16 mmol/L Normal 10 - 20 [facility] Comment on above: Performed By: #### C MP ####[facility] [place] [address] Aspartate aminotransferase (AST) 25 U/L Normal 9 - 39 [facility] Comment on above: Result Comment: MILD HEMOLYSIS DETECTED. The result may be falsely elevated due tohemolysis or other interferents. Clinical correlation is recommended.Repeat testing may be considered. Performed By: #### C MP ####[facility] [place] [address] Bicarbonate (HCO3) 18 mmol/L Low 21 - 32 [facility] Comment on above: Performed By: #### C MP ####[facility] [place] [address] Bilirubin (total) 0.3 mg/dL Normal 0.0 - 1.2 [facility] Comment on above: Performed By: #### C MP ####[facility] [place] [address] Calcium 9.1 mg/dL Normal 8.6 - 10.6 [facility] Comment on above: Performed By: #### C MP ####[facility] [place] [address] Chloride 109 mmol/L High 98 - 107 [facility] Comment on above: Performed By: #### C MP ####[facility] [place] [address] Creatinine 0.65 mg/dL Normal 0.50 - 1.05 [facility] Comment on above: Performed By: #### C MP ####[facility] [place] [address] eGFR (non-black) mL/min/{1.73_m2} Normal >60 [facility] Comment on above: Result Comment: CALC ULATIONS OF ESTIMATED GFR ARE PERFORMED USING THE MDRD STUDY EQUATION FOR THE IDMS-TRACEABLE CREATININE METHODS. CLIN CHEM 2007;53:766-72 Performed By: #### C MP ####[facility] [place] [address] Glucose mass conc 52 mg/dL Low 74 - 99 [facility] Comment on above: Performed By: #### C MP ####[facility] [place] [address] Potassium molar conc 4.2 mmol/L Normal 3.5 - 5.3 [facility] Comment on above: Result Comment: MILD HEMOLYSIS DETECTED. The result may be falsely elevated due tohemolysis or other interferents. Clinical correlation is recommended.Repeat testing may be considered. Performed By: #### C MP ####[facility] [place] [address] Protein 6.5 g/dL Normal 6.4 - 8.2 [facility] Comment on above: Performed By: #### C MP ####[facility] [place] [address] Sodium 139 mmol/L Normal 136 - 145 [facility] Comment on above: Performed By: #### C MP ####[facility] [place] [address] Urea nitrogen 6 mg/dL Normal 6 - 23 [facility] Comment on above: Performed By: #### C MP ####[facility] [place] [address] CORD PLACENTA ARTERIAL BLOOD GASon 03-07-2017 BASE EXCESS-BLOOD -2.3 mmol/L Normal -10.8 - -0.5 [facility] Comment on above: Performed By: #### B LCA1 ####[facility] [place] [address] Body temperature 37.0 degrees C Normal [facility] Comment on above: Result Comment: NOTE : PATIENT RESULTS ARE NOT CORRECTED FOR TEMPERATURE. Performed By: #### B LCA1 ####[facility] [place] [address] CO2 47 mmHg Normal 31 - 75 [facility] Comment on above: Performed By: #### B LCA1 ####[facility] [place] [address] Erythrocytes (RBC) 24.2 mmol/L Normal 15.0 - 29.0 [facility] Comment on above: Performed By: #### B LCA1 ####[facility] [place] [address] Oxygen in arterial blood 14 mm[Hg] Normal 5 - 31 [facility] Comment on above: Performed By: #### B LCA1 ####[facility] [place] [address] pH of blood 7.32 [pH] Normal 7.08 - 7.39 [facility] Comment on above: Performed By: #### B LCA1 ####[facility] [place] [address] SO2 27 % Normal 3 - 69 [facility] Comment on above: Performed By: #### B LCA1 ####[facility] [place] [address] CORD PLACENTA VENOUS BLOOD G ASon 03-07-2017 BASE EXCESS-BLOOD -3.3 mmol/L Normal -8.1 - -0.5 [facility] Comment on above: Performed By: #### B LCV1 ####[facility] [place] [address] Body temperature 37.0 degrees C Normal [facility] Comment on above: Result Comment: NOTE : PATIENT RESULTS ARE NOT CORRECTED FOR TEMPERATURE. Performed By: #### B LCV1 ####[facility] [place] [address] CO2 37 mmHg Normal 22 - 53 [facility] Comment on above: Performed By: #### B LCV1 ####[facility] [place] [address] Erythrocytes (RBC) 21.4 mmol/L Normal 16.0 - 26.0 [facility] Comment on above: Performed By: #### B LCV1 ####[facility] [place] [address] Oxygen in arterial blood 21 mm[Hg] Normal 13 - 37 [facility] Comment on above: Performed By: #### B LCV1 ####[facility] [place] [address] pH of blood 7.37 [pH] Normal 7.19 - 7.47 [facility] Comment on above: Performed By: #### B LCV1 ####[facility] [place] [address] SO2 56 % Normal 16 - 84 [facility] Comment on above: Performed By: #### B LCV1 ####[facility] [place] [address] DRUG SCREEN,URINEon 03-07-20 17 COCAINE METABOLITE Negative Normal NEGATIVE [facility] Comment on above: Result Comment: CUTO FF LEVEL: 150 NG/ML Computer System Specialist drug: Benzoylecgonine(cocaine metabolite) Performed By: #### D RUG3 ####[facility] [id number] DRUG SCREEN COMMENT SEE BELOW Normal [facility] Comment on above: Result Comment: POSI TIVE CUTOFFS ARE BASED ON REACTIVITY WITH A RETROFIT INSTALLER MEMBER OF DRUG CLASS. MEMBERS OF THE SAME CLASS OF DRUG MAY HAVE DIFFERING REACTIVITY WITH THE ASSAY AND THEREFORE MAY NEED TO BE PRESENT IN HIGHER CONCENTRATIONS TO GENERATE A POSITIVE RESULT. THESE TOXICOLOGY SCREENS PROVIDE UNCONFIRMED ANALYTICAL RESULTS SUITABLE FOR CLINICAL MANAGEMENT. A POSITIVE QUALITATIVE RESULT DOES NOT INDICATE OR MEASURE INTOXICATION. FOR QUANTITATIVE CONFIRMATORY TESTING OR PATHOLOGIST CONSULTATION, CALL LABORATORY AT [phone]. Performed By: #### D RUG3 ####[facility] [place] [address] OXYCODONE Negative Normal NEGATIVE [facility] Comment on above: Result Comment: CUTO FF LEVEL:100 NG/ML Computer System Specialist drug: Oxycodone This test will accurately detect both oxycodone and oxymorphone. Performed By: #### D RUG3 ####[facility] [id number] PCP Negative Normal NEGATIVE [facility] Comment on above: Result Comment: CUTO FF LEVEL: 25 NG/ML Computer System Specialist drug: Phencyclidine(PCP) Cross-reactivity has been reported with dextromethorphan. Performed By: #### D RUG3 ####[facility] [place] [address] URINE BARBITURATES Negative Normal NEGATIVE [facility] Comment on above: Result Comment: CUTO FF LEVEL:200 NG/ML Computer System Specialist drug: Secobarbital Performed By: #### D RUG3 ####[facility] [id number] Urine, amphetamines presence Negative Normal NEGATIVE [facility] Comment on above: Result Comment: CUTO FF LEVEL: 500 NG/ML Computer System Specialist drug: d-Methamphetamine Cross-reactivity has been reported with high concentrations of the following drugs: buproprion, chloroquine, chlorpromazine, ephedrine, mephentermine, fenfluramine, phentermine, phenylpropanolamine, pseudoephedrine, and propranolol. Performed By: #### D RUG3 ####[facility] [place] [address] Urine, benzodiazepines presence Negative Normal NEGATIVE [facility] Comment on above: Result Comment: CUTO FF LEVEL:200 NG/ML Computer System Specialist drug: Lormetazepam Performed By: #### D RUG3 ####[facility] [place] [address] Urine, cannabinoids presence Negative Normal NEGATIVE [facility] Comment on above: Result Comment: CUTO FF LEVEL:50 NG/ML Computer System Specialist dru04-ieu--THC-9carboxylic acid Performed By: #### D RUG3 ####[facility] [place] [address] Urine, methadone presence Negative Normal NEGATIVE [facility] Comment on above: Result Comment: CUTO FF LEVEL: 150 NG/ML Computer System Specialist drug: Methadone The metabolite F-hnoxi-khuwabotiailgk (LAAM) is not detected by this method in concentrations that would be found in the urine of patients on LAAM therapy. Performed By: #### D RUG3 ####[facility] [place] [address] Urine, opiates presence Negative Normal NEGATIVE [facility] Comment on above: Result Comment: CUTO FF LEVEL: 300 NG/ML Computer System Specialist Drug: Morphine This assay shows poor reactivity with synthetic opioids such as oxycodone and fentanyl. Cross-reactivity has been reported at high doses of meperidine. Performed By: #### D RUG3 ####[facility] [place] [address] EMR ADDONon 03-07-2017 ADDON CONFIRMATION REQUEST REC'D Normal [facility] Comment on above: Performed By: #### B LCV1 ####[facility] [place] [address] ADDON CONFIRMATION REQUEST REC'D Normal [facility] Comment on above: Performed By: #### E MRAD ####NO LOCATION NEEDED GC + CHLAMYDIA BY AMPLIFIED DETECTIONon 03-07-2017 Lab Specimen Source Urine Normal [facility] Comment on above: Performed By: #### B LCV1 ####[facility] [place] [address] GROUP B STREP SCREENon 03-07 GROUP B STREP SCREEN PATIENT: Bradnon LEWIS LOCATION: [address]#: [id number] : 89 AGE: SEX: F ORDERED BY: STEFANIE FISHER: VAG-RECTAL COLLECTED: 03/07/17 10:19ANTIBIOTICS AT ALEXANDRA.: RECEIVED : 03/07/17 13:28SITE: [facility] R E S U L T S GROUP B STREP SCREEN FINAL 03/09/17 08:36 NEGATIVE FOR GROUP B BETA STREP. Normal [facility] Comment on above: Performed By: #### B LCV1 ####[facility] [place] [address] HEPATITIS B SURFACE AGon HEP.B SURFACE AG NONREACTIVE Normal NONREACTIVE [facility] Comment on above: Result Comment: Laureen ents receiving more than 5 mg/day of biotin may have interference in test results. A sample should be taken no sooner than eight hours after previous dose. Contact [phone] for additional information. Performed By: #### B LCV1 ####[facility] [place] [address] HEPATITIS C ABon 03-07-2017 HEPATITIS C AB NON-REACTIVE Normal NONREACTIVE [facility] Comment on above: Result Comment: Laureen ents receiving more than 5 mg/day of biotin may have interference in test results. A sample should be taken no sooner than eight hours after previous dose. Contact [phone] for additional information. Performed By: #### B LCV1 ####[facility] [place] [address] LDHon 03-07-2017 LDH 378 U/L High 84 - 246 [facility] Comment on above: Result Comment: MILD HEMOLYSIS DETECTED. The result may be falsely elevated due tohemolysis or other interferents. Clinical correlation is recommended.Repeat testing may be considered. Performed By: #### L DH ####[facility] [place] [address] SYPHILIS IGGon 03-07-2017 SYPHILIS IGG NON REACTIVE Normal NONREACTIVE [facility] Comment on above: Result Comment: Laureen ents receiving more than 5 mg/day of biotin may have interference in test results. A sample should be taken no sooner than eight hours after previous dose. Contact [phone] for additional information. Performed By: #### B LCV1 ####[facility] [place] [address] Lab Specimen Source Normal [facility] Comment on above: Performed By: #### B LCV1 ####[facility] [place] [address] TOTAL PROTEIN, URINE SPOTon 03-07-2017 CREATININE,URINE 386.0 mg/dL Normal [facility] Comment on above: Performed By: #### T PS2 ####[facility] [place] [address] T. PROTEIN/CREAT RATIO 0.23 mg/mg Creat Normal [facility] Comment on above: Result Comment: Note : The units of measurement for Urine Total Protein to Creatinine Ratio have changed from mg/g creat to mg/mg creat effective 11/12/16. New results in mg/mg creat are 1000 fold lower than previous results in mg/g creatinine. (Ex: 200 mg/g creat = 0.20 mg/mg creat) Performed By: #### T PS2 ####[facility] [place] [address] TOTAL PROT,URINE SPOT 90 mg/dL High 0 - 12 [facility] Comment on above: Result Comment: Note : The units of measurement for urine total protein concentration have changed from mg/L to mg/dL effective 11/12/16. New results in mg/dL are now 10 fold lower than the previous results in mg/L. Performed By: #### T PS2 ####[facility] [place] [address] TYPE + SCREENon 03-07-2017 ABO TYPE A Normal [facility] Comment on above: Performed By: #### T +S ####[facility] [place] [address] RH TYPE Positive Normal [facility] Comment on above: Performed By: #### T +S ####[facility] [place] [address] ANTIBODY SCREEN Negative Normal [facility] Comment on above: Performed By: #### T +S ####[facility] [place] [address] [facility] Surgical Pathology Depar tmenton 03-07-2017 [facility] Surgical Pathology Department Name AGUEDA LEWIS Pathologist: ANTONIA SALCIDOate of Procedure: 03/07/2017Date Received: 03/08/2017Date Reported 03/09/2017Submitting Physician: SHERIF AZEVEDO MDLocation: [id number] Other External # FINAL DIAGNOSISA. PLACENTA: -- GREEN STAINED MATURE PLACENTA (455 GRAMS).-- SCATTERED SMALL FOCI OF AVASCULAR VILLI. -- PIGMENTED MACROPHAGES IN MEMBRANES AND CHORIONIC PLATE. Electronically Signed Out By SHILA GALAVIZ DO/Heidi the signature on this report, the individual or group listed as making theFinal Interpretation/Diagnosis certifies that they have reviewed this case. Clinical History:Gestational age: 39.0 Ob index: G 2, Full term 1, Micky 0, Ab 0, Lvg 1Maternal history: ? care, concern for infection/sepsisBaby weight: 4120 grams Apgars: 6 at 1 minute, 9 at 5 minutesSpecific questions: --Specimens Submitted As:A: PLACENTA Gross Description:A. Received fresh, labeled with the patient?s name and hospital number, with anaccompanying placental record sheet, is a placenta. Inside the container is anintact lidocaine sticker. Placental membranes are green tinged and complete.Membrane insertion is marginal. Point of membrane rupture is 4.0 cm from thenearest margin. The umbilical cord is pale yellow, 49 cm in total length, andinserts in the placenta 5.0 cm from the margin. On cut section, the cord has 3vessels, and measures 1.2 x 0.8 cm. The placenta is discoid, 17.5 x 17.5 cm,and weighs 455 g without cord or membranes. The surface is red-green,somewhat opaque, with multiple firm white plaques measuring 0.5-2.5 cm ingreatest diameter. The maternal surface is complete. The cut surface is darkred and firm. No gross abnormalities are noted. Computer System Specialist sections aresubmitted in 5 cassettes.NUBSpecimen Label SiteA 1 umbilical cord sections 2 membrane rolls 3 placental parenchyma, umbilical cord insertion site 4 normal placental parenchyma 5 placental parenchyma, bank representative section of plaquen/03/08/2017 Normal [facility] Comment on above: Performed By: #### B LCV1 ####[facility] [place] [address] URIC ACIDon 03-07-2017 Urate 5.2 mg/dL Normal 2.3 - 6.7 [facility] Comment on above: Result Comment: Linda puncture immediately after or during the administration of Metamizole may lead to falsely low results. Testing should be performed immediately prior to Metamizole dosing. Performed By: #### U PASTORA ####[facility] [place] [address] Vital Signs Date Time Vital Sign Value Performing Clinician Facility 08-01-2024 11:13 Body mass index (BMI) [Ratio] 37.82 kg/m2 Francisco Combs MD Work Phone: [facility] 08-01-2024 11:13040 Body temperature 98.8 [degF] Francisco Combs MD Work Phone: [facility] 08-01-2024 11:13040 Body weight 123 kg Francisco Combs MD Work Phone: [facility] 08-01-2024 11:13040 Diastolic blood pressure 83 mm[Hg] Francisco Combs MD Work Phone: [facility] 08-01-2024 11:13040 Heart rate 80 /min Francisco Combs MD Work Phone: [facility] 08-01-2024 11:13-0400 Respiratory rate 20 /min Francisco Combs MD Work Phone: [facility] 08-01-2024 11:13-0400 SaO2% (BldA) [Mass fraction] 99 % Francisco Combs MD Work Phone: [facility] 08-01-2024 11:13-0400 Systolic blood pressure 127 mm[Hg] Francisco Combs MD Work Phone: [facility] 07-08-2024 14:47-0500 Body height 180.3 cm Paramjit Robertson MD Work Phone: [facility] 07-08-2024 14:47-0500 Body mass index (BMI) [Ratio] 37.38 kg/m2 Paramjit Robertson MD Work Phone: [facility] 07-08-2024 14:47-0500 Body weight 121.56 kg Paramjit Robertson MD Work Phone: [facility] 07-08-2024 14:47-0500 Diastolic blood pressure 71 mm[Hg] Paramjit Robertson MD Work Phone: [facility] 07-08-2024 14:47-0500 Heart rate 77 /min Paramjit Robertson MD Work Phone: [facility] 07-08-2024 14:47-0500 Respiratory rate 20 /min Paramjit Robertson MD Work Phone: [facility] 07-08-2024 14:47-0500 Systolic blood pressure 116 mm[Hg] Paramjit Robertson MD Work Phone: [facility] 06-03-2024 14:34-0500 Body height 178.8 cm Елена Kimballton ONYX CHIP TERRAZZO WORKER.INTERNET AND E BUSINESS PROJECT MANAGER Work Phone: [facility] 06-03-2024 14:34-0500 Body mass index (BMI) [Ratio] 38.05 kg/m2 Елена Kimballton [employer] CH[employer] TERRAZZO WORKER.INTERNET AND E BUSINESS PROJECT MANAGER Work Phone: [facility] 06-03-2024 14:34-0500 Body weight 121.66 kg Елена Kimballton ON[employer]X CH[employer] TERRAZZO WORKER.INTERNET AND E BUSINESS PROJECT MANAGER Work Phone: [facility] 06-03-2024 14:34-0500 Diastolic blood pressure 68 mm[Hg] Елена Judy [employer]X CH[employer]O WORKER.INTERNET AND E BUSINESS PROJECT MANAGER Work Phone: [facility] 06-03-2024 14:34-0500 Systolic blood pressure 122 mm[Hg] Елена Kimballton [employer]X CH[employer]O WORKER.INTERNET AND E BUSINESS PROJECT MANAGER Work Phone: [facility] 03-29-2024 21:40-0500 Diastolic blood pressure 74 mm[Hg] Vince Hope MD Work Phone: [facility] [email or web address] 03-29-2024 21:40-0500 Heart rate 68 /min Vince Hope MD Work Phone: [facility] [email or web address] 03-29-2024 21:40-0500 Respiratory rate 18 /min Vince Hope MD Work Phone: [facility] [email or web address] 03-29-2024 21:40-0500 SaO2% (BldA) [Mass fraction] 98 % Vince Hope MD Work Phone: [facility] [email or web address] 03-29-2024 21:40-0500 Systolic blood pressure 105 mm[Hg] Vince Hope MD Work Phone: [facility] [email or web address] 03-29-2024 18:45-0500 Body temperature 97 [degF] Vince Hope MD Work Phone: [facility] [email or web address] 03-29-2024 18:44-0500 Body height 180.3 cm Vince Hope MD Work Phone: [facility] [email or web address] 03-29-2024 18:44-0500 Body mass index (BMI) [Ratio] 40.17 kg/m2 Vince Hope MD Work Phone: [facility] [email or web address] 03-29-2024 18:44-0500 Body weight 130.64 kg Vince Hope MD Work Phone: [facility] [email or web address] 12-29-2023 10:11-0400 Body height 180.3 cm Mary Jasso MD Work Phone: [facility] 12-29-2023 10:11-0400 Body mass index (BMI) [Ratio] 37.35 kg/m2 Mary Jasso MD Work Phone: [facility] 12-29-2023 10:11-0400 Body temperature 96.91 [degF] Mary Jasso MD Work Phone: [facility] 12-29-2023 10:11-0400 Body weight 121.47 kg Mary Jasso MD Work Phone: [facility] 12-29-2023 10:11-0400 Diastolic blood pressure 66 mm[Hg] Mary Jasso MD Work Phone: [facility] 12-29-2023 10:11-0400 Heart rate 117 /min Mary Jasso MD Work Phone: [facility] 12-29-2023 10:11-0400 SaO2% (BldA) [Mass fraction] 98 % Mary Jasso MD Work Phone: [facility] 12-29-2023 10:11-0400 Systolic blood pressure 108 mm[Hg] Mary Jasso MD Work Phone: [facility] 08-23-2023 21:38-0400 Body height 180.[address] JOAQUÍN CARMICHAEL DO [facility] 08-23-2023 21:38-0400 Body temperature 98.96 [degF] DR JOAQUÍN CARMICHAEL DO [facility] 08-23-2023 21:38-0400 Body weight 127.[address] JOAQUÍN CARMICHAEL DO [facility] 08-23-2023 21:38-0400 Diastolic Blood Pressure Non-Invasive 85 mm[Hg] DR JOAQUÍN CARMICHAEL DO [facility] 08-23-2023 21:38-0400 Heart rate 88 /min DR JOAQUÍN CARMICHAEL DO [facility] 08-23-2023 21:38-0400 Respiratory rate 18 /min DR JOAQUÍN CARMICHAEL DO [facility] 08-23-2023 21:38-0400 Systolic Blood Pressure Non-Invasive 124 mm[Hg] DR JOAQUÍN CARMICHAEL DO [facility] 08-14-2023 08:26-0400 Body height 177.8 cm Orestes Heath MD Work Phone: [facility] 08-14-2023 08:26-0400 Body weight 126.55 kg Orestes Heath MD Work Phone: [facility] 08-14-2023 08:26-0400 Diastolic blood pressure 77 mm[Hg] Orestes Heath MD Work Phone: [facility] 08-14-2023 08:26-0400 Heart rate 103 /min Orestes Heath MD Work Phone: [facility] 08-14-2023 08:26-0400 Respiratory rate 18 /min Orestes Heath MD Work Phone: [facility] 08-14-2023 08:26-0400 SaO2% (BldA) [Mass fraction] 98 % Orestes Heath MD Work Phone: [facility] 08-14-2023 08:26-0400 Systolic blood pressure 111 mm[Hg] Orestes Heath MD Work Phone: [facility] 03-27-2023 15:51-0500 Body height 177.4 cm Quintin Khalid DO Work Phone: [facility] 03-27-2023 15:51-0500 Body mass index (BMI) [Ratio] 41.52 kg/m2 [place] Khalid DO Work Phone: [facility] 03-27-2023 15:51-0500 Body temperature 97.9 [degF] [place] Khalid DO Work Phone: [facility] 03-27-2023 15:51-0500 Body weight 130.68 kg [place] Khalid DO Work Phone: [employer] 03-27-2023 15:51-0500 Diastolic blood pressure 82 mm[Hg] [place] Khalid DO Work Phone: [facility] [employer] 03-27-2023 15:51-0500 Heart rate 87 /min Quintin Khalid DO Work Phone: [employer] 03-27-2023 15:51-0500 Respiratory rate 20 /min Quintin Khalid DO Work Phone: [employer] 03-27-2023 15:51-0500 Systolic blood pressure 118 mm[Hg] Quintin Khalid DO Work Phone: [employer] 11-01-2020 23:25-0400 Body temperature 98.01 [degF] [employer] Work Phone: 11-01-2020 23:25-0400 Diastolic blood pressure 71 mm[Hg] [employer] Work Phone: 11-01-2020 23:25-0400 Heart rate 69 /min [employer] Work Phone: 11-01-2020 23:25-0400 Respiratory rate 16 /min [employer] Work Phone: 11-01-2020 23:25-0400 SaO2% (BldA) [Mass fraction] 98 % [employer] Work Phone: 11-01-2020 23:25-0400 Systolic blood pressure 110 mm[Hg] [employer] Work Phone: 11-01-2020 19:37-0400 Body mass index (BMI) [Ratio] 29.57 kg/m2 [employer] Work Phone: 11-01-2020 19:37-0400 Body weight 96.16 kg [employer] Work Phone: 11-01-2020 19:36-0400 Body height 180.3 cm [employer] Work Phone: Encounters Encounter Date Encounter Type Care Provider Facility Start: 10-16-2024 End: 10-16-2024 Telephone encounter Paramjit Robertson MD Work Phone: [facility] Comment on above: Surgery Cancelled (R e: Lap Malissa 10/17/2024) Start: 10-10-2024 Preprocedural examination done Paramjit Robertson MD Work Phone: [facility] Work Phone: Start: 09-26-2024 End: 09-30-2024 Orders Only Paramjit Robertson MD Work Phone: [facility] Comment on above: Calculus of gallblad samuel without cholecystitis without obstruction (Primary Dx) Cardiac Clearance Start: 08-21-2024 End: 08-21-2024 Telephone encounter Orestes Heath MD Work Phone: [facility] Cardiology [place] Start: 08-01-2024 End: 08-01-2024 Subsequent hospital visit by physician [facility] Darcy Work Phone: Radiology Comment on above: Acute pain of left s houlder [M25.512] Start: 08-01-2024 End: 08-01-2024 ambulatory FRANCISCO COMBS Facility:[facility] Start: 08-01-2024 End: 08-01-2024 Office outpatient visit 15 minutes Francisco Combs MD Work Phone: [facility] Care Comment on above: Acute pain of left s houlder (Primary Dx) Start: 07-08-2024 End: 07-08-2024 Patient encounter procedure Paramjit Robertson MD Work Phone: [facility] Comment on above: Calculus of gallblad samuel without cholecystitis without obstruction (Primary Dx); 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; Tobacco use Start: 07-08-2024 End: 07-08-2024 ambulatory PARAMJIT ROBERTSON Facility:[facility] Start: 06-14-2024 End: 06-14-2024 ambulatory Certified Registered Locksmith [facility] Work Phone: OB/Gynecology Start: 06-14-2024 End: 06-14-2024 Patient encounter procedure Us Tech [employer] OB/Gynecology Start: 06-12-2024 End: 06-12-2024 Orders Only Tayla Boucher PA-C Work Phone: [facility] Orthopedics [facility] Comment on above: Pain in both knees, unspecified chronicity (Primary Dx) Start: 06-05-2024 End: 06-06-2024 ambulatory Елена Kim [employer] CH[employer] WORKER.INTERNET AND E BUSINESS PROJECT MANAGER Work Phone: OB/Gynecology Comment on above: Test Result Question Start: 06-03-2024 End: 06-03-2024 Patient encounter procedure Елена Kim [employer] WORKER.INTERNET AND E BUSINESS PROJECT MANAGER Work Phone: OB/Gynecology Comment on above: Encounter for gyneco logical examination (general) (routine) without abnormal findings (Primary Dx); Screening for cervical cancer; Encounter for screening for human papillomavirus (HPV); Irregular menstrual cycle Start: 06-03-2024 End: 06-03-2024 Patient encounter status Елена Kim [employer] WORKER.INTERNET AND E BUSINESS PROJECT MANAGER Work Phone: [facility] Start: 06-03-2024 End: 06-03-2024 ambulatory ЕЛЕНАLISA RODRÍGUEZJUDY Facility:[facility] Start: 04-25-2024 End: 04-25-2024 Telephone encounter Orestes Heath MD Work Phone: [facility] Cardiology Comment on above: Results (Echo) Start: 04-23-2024 ambulatory ORESTES HEATH Facilit y:[facility] Start: 04-23-2024 End: 04-23-2024 Subsequent hospital visit by physician Echo Lab [facility] CARDIAC TESTING Comment on above: Family history of hy pertrophic cardiomyopathy [Z82.49] Start: 04-03-2024 End: 04-03-2024 Emergency department patient visit BUDDY HOPKINS Facility:[facility] Start: 04-02-2024 End: 04-02-2024 ambulatory Zoe Zarate [facility] Medicine [facility] Start: 03-29-2024 End: 03-29-2024 Emergency department patient visit Vince Hope MD Work Phone: [facility] ED Comment on above: Gallstones (Primary Dx); Biliary colic; Trichomonas infection Start: 03-29-2024 End: 04-01-2024 Telephone encounter Rubi Moore Clinical Communication Comment on above: Other (ED follow up appointment) Start: 2024 End: 2024 ambulatory Nurse Card Admin [facility] [email or web address] Work Phone: Cardiology Comment on above: Stress Test Instruct ions for 02/26/24 Start: 2024 End: 2024 E-mail encounter from caregiver Nurse Card Admin [facility] [email or web address] Work Phone: Cardiology Start: 02-14-2024 End: 02-14-2024 [facility] Start: 01-16-2024 End: 03-27-2024 Telephone encounter Mary Jasso MD Work Phone: General Surgery Comment on above: Patient Update Start: 01-08-2024 ambulatory No Primary Car e Physician Facility:[facility] Start: 12-29-2023 End: 12-29-2023 ambulatory MARY JASSO Facility:[facility] Start: 12-29-2023 End: 12-29-2023 Patient encounter procedure Mary Jasso MD Work Phone: General Surgery Comment on above: Calculus of gallblad samuel without cholecystitis without obstruction (Primary Dx); RUQ abdominal pain; Chest pain, unspecified type Start: 12-24-2023 End: 12-24-2023 Emergency department patient visit No Primary Care Physician Facility:[facility] Start: 12-15-2023 ambulatory No Primary Car e Physician Facility:[facility] Start: 12-15-2023 End: 12-15-2023 ambulatory No Primary Care Physician Facility:[facility] Start: 12-01-2023 End: 12-01-2023 ambulatory No Primary Care Physician Facility:[facility] Start: 11-27-2023 End: 11-27-2023 Emergency department patient visit Shailesh Merritt Facility:[facility] Start: 11-03-2023 End: 11-03-2023 Emergency department patient visit Juan A Saha Facility:[facility] Start: 08-23-2023 End: 08-24-2023 Emergency department patient visit DR JOAQUÍN CARMICHAEL DO Facility: Start: 08-23-2023 End: 08-23-2023 Emergency department patient visit DR JOAQUÍN CARMICHAEL DO [facility] Start: 08-14-2023 End: 08-14-2023 Patient encounter procedure Orestes Heath MD Work Phone: [facility] Cardiology [place] Comment on above: Class 3 severe obesi ty due to excess calories with body mass index (BMI) of 40.0 to 44.9 in adult, unspecified whether serious comorbidity present (HCC) (Primary Dx); Family history of hypertrophic cardiomyopathy; Preoperative clearance; Gall stones; Chest pain, unspecified type Start: 08-14-2023 End: 08-14-2023 Preoperative state Orestes Heath MD Work Phone: [facility] Work Phone: Start: 07-25-2023 Telephone encounter Zulema olivo DO Work Phone: [facility] Comment on above: Appointment Request Start: 05-24-2023 Refill Zulema Deleon Work Phone: [facility] Comment on above: Nausea and vomiting, unspecified vomiting type Start: 04-14-2023 End: 04-14-2023 Patient encounter procedure Vannessa Ellis MD Work Phone: Reproductive Endocrinology Infertility Comment on above: NO SHOW (Primary Dx) Start: 03-27-2023 End: 03-27-2023 Office outpatient new 30 minutes Quintin Montiel DO Work Phone: [facility] Comment on above: Epigastric pain (Sona mayra Dx); Nausea and vomiting, unspecified vomiting type; Missed menses Start: 12-05-2022 End: 12-05-2022 Subsequent hospital visit by physician Ach Ecg [facility] Non-Invasive Cardiology Comment on above: Arrived Start: 02-24-2022 ambulatory Nerissa Haskins MA N [facility] Comment on above: Population Health Na vigation Outreach [facility] Start: 11-01-2020 End: 11-01-2020 Emergency department patient visit [facility] Emergency Dept Comment on above: Numbness (Primary Dx ); Cervical radiculopathy Start: 11-13-2019 End: 11-13-2019 Emergency department patient visit MICHELE REYNOLDS [facility] Start: 11-05-2019 End: 11-05-2019 Emergency department patient visit MARCY JACK [facility] Start: 05-13-2017 End: 05-13-2017 Evaluation and management of inpatient Family Physician Unavailable Facility:[facility] Start: 05-12-2017 Ambulatory Facility:[id number] Start: 04-22-2017 End: 04-22-2017 Emergency department patient visit Agustin Villa Facility:[facility] Start: 04-22-2017 Ambulatory Facility:[id number] Start: 03-07-2017 End: 03-07-2017 Ambulatory Sherif Azevedo Facility:[facility] Procedures Date Procedure Procedure Detail Performing Clinician Start: 08-01-2024 Radex shoulder compl ete minimum 2 views Francisco Combs MD Work Phone: Start: 06-14-2024 Us pelvic nonobstetr ic real-time image complete Елена Kim APRN.CNP Work Phone: Start: 06-03-2024 Microscopic observat ion [Identifier] in Cervix by Cyto stain Tayla Boucher PA-C Work Phone: Start: 04-23-2024 Echo tthrc r-t 2d w/wom-mode compl spec&colr d Orestes Heath MD Work Phone: Start: 03-29-2024 Urinalysis complete panel - Urine Vince Hope MD Work Phone: Start: 03-29-2024 Urine test visual color cmprsn meths Vince Hope MD Work Phone: Start: 03-29-2024 Urnls dip stick/tabl et reagent auto microscopy Vince Hope MD Work Phone: Start: 03-29-2024 Comprehensive metabo lic panel Vince Hope MD Work Phone: Start: 03-29-2024 Us abdominal real ti me w/image limited Vince Hope MD Work Phone: Start: 03-27-2023 Comprehensive metabo lic panel [place] Edid DO Work Phone: Start: 03-27-2023 Urine test visual color cmprsn meths Quintin Asadalid DO Work Phone: Start: 03-27-2023 Adult depression scr eening assessment Quintin Asadalid DO Work Phone: Start: 12-05-2022 Ecg routine ecg w/le ast 12 lds i&r only Victor M Foster MD Work Phone: Start: 11-01-2020 Radex spine cervical 2 or 3 views Vianey Ann PA-C Work Phone: Start: 11-13-2019 Urinalysis MARCY Cárdenas Comment on above: Result Comment: URIN ALYSIS Performed By: #### [id number] #### [facility],[address] [place] [address] Start: 03-07-2017 Delivery of Products of Conception, External Approach Sherif Azevedo Plan of Treatment Date Care Activity Detail Author Start: 2069 RSV Immunization for Adults (1 - 1-dose 75+ series) RSV Immunization for Adults (1 - 1-dose 75+ series) [facility] [email or web address] Start: 2054 RSV Immunization aged 60 or older (1 - 1-dose 60+ series) RSV Immunization aged 60 or older (1 - 1-dose 60+ series) [facility] Start: 02-21-2044 Zoster Vaccines (1 of 2) Zoster Vaccines (1 of 2) [facility] Start: 06-03-2029 Screening for malignant neoplasm of cervix Cervical Cancer Screening [facility] Start: 06-03-2027 Screening for malignant neoplasm of cervix [facility] Start: 06-03-2025 End: 06-03-2025 Patient encounter procedure 06/03/2025 3:00 PM EST Office Visit OB/Gynecology [address] [place] [address] Елена Kim APRN.INTERNET AND E BUSINESS PROJECT MANAGER [address] [place] [address] Annual OB/Gynecology Comment on above: Annual Start: 01-20-2025 Influenza vaccination Influenza Vaccine (Season Ended) [facility] Start: 10-30-2024 End: 10-30-2024 Patient encounter procedure 10/30/2024 11:15 AM EDT Office Visit [facility] [address] [facility] [address] [place] [id number] Paramjit Robertson MD [address] [facility] [address] [place] [phone] POST-OP LAP MALISSA [facility] SUR[facility]ERY [facility]PARTMENT Comment on above: POST-OP LAP MALISSA Start: 10-17-2024 End: 10-17-2024 Admission to same day surgery center 10/17/2024 11:15 AM EDT - 10/17/2024 1:35 PM EDT Surgery [facility] [address] [place] [address] Paramjit Robertson MD [address] [facility] [address] [place] [phone] LAPAROSCOPIC CHOLECYSTECTOMY [facility] Comment on above: LAPAROSCOPIC CHOLECYSTECTOMY Start: 10-17-2024 End: 10-17-2024 Laparoscopy surg cholecystectomy LAPAROSCOPIC CHOLECYSTECTOMY Calculus of gallbladder without cholecystitis without obstruction 10/17/2024 11:15 AM EDT [facility] Start: 10-17-2024 Subsequent hospital visit by physician 10/17/2024 11:15 AM EDT Hospital Encounter [facility] [address] [place] [address] Paramjit Robertson MD [address] [facility] [address] [place] [phone] Calculus of gallbladder without cholecystitis without obstruction [K80.20] [facility] Comment on above: Calculus of gallbladder without cholecys titis without obstruction [K80.20] Start: 10-10-2024 End: 10-10-2024 ambulatory 10/10/2024 3:00 PM EDT PAT Pre Surgical Testing [address] [facility] [place] [address] LAPAROSCOPIC CHOLECYSTECTOMY Pre Surgical Testing Comment on above: LAPAROSCOPIC CHOLECYSTECTOMY Start: 09-26-2024 End: 12-26-2024 Alanine aminotransferase [Enzymatic activity/volume] in Serum or Plasma ALANINE AMINOTRANSFERASE / SGPT Lab Routine Calculus of gallbladder without cholecystitis without obstruction Expected: 09/26/2024, Expires: 12/26/2024 [facility] Comment on above: Expected: 09/26/2024, Expires: Start: 09-26-2024 End: 12-26-2024 Alkaline phosphatase [Enzymatic activity/volume] in Serum or Plasma ALKALINE PHOSPHATASE Lab Routine Calculus of gallbladder without cholecystitis without obstruction Expected: 09/26/2024, Expires: 12/26/2024 [facility] Comment on above: Expected: 09/26/2024, Expires: Start: 09-26-2024 End: 12-26-2024 Aspartate aminotransferase [Enzymatic activity/volume] in Serum or Plasma ASPARTATE AMINOTRANSFERASE/SGOT Lab Routine Calculus of gallbladder without cholecystitis without obstruction Expected: 09/26/2024, Expires: 12/26/2024 [facility] Comment on above: Expected: 09/26/2024, Expires: Start: 09-26-2024 End: 12-26-2024 Bilirubin.total [Mass/volume] in Serum or Plasma BILIRUBIN TOTAL BLD Lab Routine Calculus of gallbladder without cholecystitis without obstruction Expected: 09/26/2024, Expires: 12/26/2024 [facility] Comment on above: Expected: 09/26/2024, Expires: Start: 09-26-2024 End: 12-26-2024 CBC panel - Blood by Automated count COMPLETE BLOOD COUNT Lab Routine Calculus of gallbladder without cholecystitis without obstruction Expected: 09/26/2024, Expires: 12/26/2024 [facility] Comment on above: Expected: 09/26/2024, Expires: Start: 09-09-2024 End: 09-09-2024 Patient encounter procedure 09/09/2024 11:30 AM EDT Office Visit [facility] [address] [place] [address] Thor Huang APRN.INTERNET AND E BUSINESS PROJECT MANAGER [address] [place] [address] cardiac clearance for cholecystectomy on 10/17/24 [facility] Comment on above: cardiac clearance for cholecystectomy on 10/17/24 Start: 06-24-2024 End: 06-24-2024 Patient encounter procedure 06/24/2024 12:45 PM EST Office Visit OB/Gynecology [address] [place] [address] Елена Kim APRN.INTERNET AND E BUSINESS PROJECT MANAGER [address] [place] [address] discuss ultrasound results OB/Gynecology Comment on above: discuss ultrasound results Start: 06-14-2024 End: 06-14-2024 ambulatory 06/14/2024 11:00 AM EST Procedure OB/Gynecology [address] [place] [address] Remote, Certified Registered [employer] [address] [place] [address] Irregular menstrual cycle [N92.6] OB/Gynecology Comment on above: Irregular menstrual cycle [N92.6] Start: 06-12-2024 End: 06-12-2025 XR Knee - left 1 or 2 Views XR knee 1 or 2 views left Imaging Routine Pain in both knees, unspecified chronicity Expected: 06/12/2024, Expires: 06/12/2025 [employer] Comment on above: Expected: 06/12/2024, Expires: Start: 06-12-2024 End: 06-12-2025 XR Knee - right 1 or 2 Views XR knee 1 or 2 views right Imaging Routine Pain in both knees, unspecified chronicity Expected: 06/12/2024, Expires: 06/12/2025 [facility] Comment on above: Expected: 06/12/2024, Expires: Start: 06-12-2024 End: 06-12-2025 XR knees anteroposterior standing bilateral XR knees anteroposterior standing bilateral Imaging Routine Pain in both knees, unspecified chronicity Expected: 06/12/2024 (Approximate), Expires: 06/12/2025 [facility] Work Phone: Comment on above: Expected: 06/12/2024 (Approximate), Expi res: 06/12/2025 Start: 06-10-2024 End: 06-10-2024 Patient encounter procedure 06/10/2024 2:45 PM EST Office Visit General Surgery [address] [place] [address] Mary Jasso MD [address] [place] [id number] Gallbladder pain that has been persistent General Surgery Comment on above: Gallbladder pain that has been persisten t Start: 06-03-2024 End: 09-02-2024 17-Hydroxyprogesterone [Mass/volume] in Serum or Plasma [facility] Comment on above: Expected: 06/03/2024, Expires: Start: 06-03-2024 End: 09-02-2024 DHEA-S BLD [facility] Comment on above: Expected: 06/03/2024, Expires: Start: 06-03-2024 End: 09-02-2024 Estradiol (E2) [Mass/volume] in Serum or Plasma [facility] Comment on above: Expected: 06/03/2024, Expires: Start: 06-03-2024 End: 09-02-2024 Follitropin [Units/volume] in Serum or Plasma [facility] Comment on above: Expected: 06/03/2024, Expires: Start: 06-03-2024 End: 09-02-2024 Hemoglobin A1c in Blood [facility] Comment on above: Expected: 06/03/2024, Expires: Start: 06-03-2024 End: 09-02-2024 Lutropin [Units/volume] in Serum or Plasma [facility] Comment on above: Expected: 06/03/2024, Expires: Start: 06-03-2024 End: 09-02-2024 Prolactin [Mass/volume] in Serum or Plasma [facility] Comment on above: Expected: 06/03/2024, Expires: Start: 06-03-2024 End: 09-02-2024 TESTOSTERONE, FREE AND TOTAL, BY EQUILIBRIUM ULTRAFILTRATION MASS SPECTROMETRY [facility] Comment on above: Expected: 06/03/2024, Expires: Start: 06-03-2024 End: 09-02-2024 Thyrotropin [Units/volume] in Serum or Plasma [facility] Work Phone: Comment on above: Expected: 06/03/2024, Expires: Start: 06-03-2024 End: 06-03-2025 US Pelvis PELVIC US [facility]I Anc Imaging Routine Irregular menstrual cycle Expected: 06/03/2024, Expires: 06/03/2025 [facility] Comment on above: Expected: 06/03/2024, Expires: Start: 04-25-2024 End: 04-25-2024 Patient encounter procedure 04/25/2024 9:40 AM EST Office Visit OB/Gynecology [address] [place] [id number] Emily Ware MD [address] [place] [address] Amenorrhea >20 days OB/Gynecology Comment on above: Amenorrhea >20 days Start: 04-11-2024 End: 04-11-2024 Patient encounter procedure 04/11/2024 8:45 AM EST Office Visit [facility] Advanced Laparoscopic Surgery - [place] [address] [place] [address] Luis F Dick DO [address] [place] [address] [facility] Laparoscopic [facility] - [place] Start: 03-27-2024 Depression Screening Depression Screening [facility] Start: 02-26-2024 End: 02-26-2024 Patient encounter procedure 02/26/2024 11:20 AM EDT Office Visit Cardiology [address] [place] [id number] Wstr, Nurse Card Admin [facility] [address] [place] [address] Family history of hypertrophic cardiomyopathy [Z82.49]; Chest pain, unspecified type [R07.9] Cardiology Comment on above: Family history of hypertrophic cardiomyo juan r [Z82.49]; Chest pain, unspecified type [R07.9] Start: 02-21-2024 Screening for malignant neoplasm of cervix [facility] Start: 01-21-2024 Covid-19 Vaccine () Covid-19 Vaccine () [facility] Start: 01-21-2024 Influenza vaccination Influenza Vaccine (#1) [facility] Start: 01-12-2024 End: 01-12-2024 Patient encounter procedure 01/12/2024 1:50 PM EDT Office Visit Cardiology [address] [place] [address] Family history of hypertrophic cardiomyopathy [Z82.49]; Chest pain, unspecified type [R07.9] Cardiology Comment on above: Family history of hypertrophic cardiomyo juan r [Z82.49]; Chest pain, unspecified type [R07.9] Start: 08-11-2023 End: 08-11-2023 Patient encounter procedure 08/11/2023 3:00 PM EDT Office Visit [facility] [address] [place] [id number] Vesna Wright DO [address] [place] [address] [facility] Start: 05-22-2023 Depression Assessment Depression Assessment [facility] Start: 04-03-2023 End: 04-03-2023 Patient encounter procedure 04/03/2023 1:10 PM EST Office Visit [facility] [address] [place] [phone] Zulema Sorto DO [address] [place] [address] [facility] Start: 01-20-2023 Covid-19 Vaccine () Covid-19 Vaccine () [facility] Start: 01-20-2023 Influenza vaccination Influenza Vaccine (#1) [facility] Start: 05-22-2022 Depression Assessment Depression Assessment [facility] Start: 01-20-2022 Influenza vaccination INFLUENZA (#1) [facility] Start: 11-12-2021 PAP TESTING PAP TESTING [facility] Start: 11-12-2021 Screening for malignant neoplasm of cervix [facility] Start: 05-22-2021 DEPRESSION ASSESSMENT DEPRESSION ASSESSMENT [facility] Start: 01-20-2021 Influenza vaccination Flu vaccine (Season Ended) [facility] Work Phone: Start: 12-07-2020 COVID-19 VACCINE (3 - Booster for Moderna series) COVID-19 VACCINE (3 - Booster for Moderna series) [facility] Start: 12-07-2020 COVID-19 Vaccine (3 - Moderna series) COVID-19 Vaccine (3 - Moderna series) [facility] Start: 01-27-2017 DTaP/Tdap/Td Vaccines (5 - Td or Tdap) DTaP/Tdap/Td Vaccines (5 - Td or Tdap) [facility] Start: 01-27-2017 DTaP/Tdap/Td Vaccines (6 - Td or Tdap) DTaP/Tdap/Td Vaccines (6 - Td or Tdap) [facility] Start: 01-27-2017 Urine microalbumin profile [facility] Start: 2015 Screening for malignant neoplasm of cervix Pap Smear [facility] Start: 02-21-2012 Anxiety Screening Anxiety Screening [facility] Start: 02-21-2012 Depression Screening Depression Screening [facility] Start: 02-21-2012 HEPATITIS C SCREENING HEPATITIS C SCREENING [facility] Start: 02-21-2012 Hepatitis C screening Hepatitis C Screening [facility] Start: 2006 COVID-19 Vaccine (1) COVID-19 Vaccine (1) [facility] Work Phone: Start: 2006 Depression Screening Depression Screening [facility] Start: 02-21-2000 Pneumococcal Vaccine: Pediatrics (0 to 5 Years) and At-Risk Patients (6 to 64 Years) (1 - PCV) Pneumococcal Vaccine: Pediatrics (0 to 5 Years) and At-Risk Patients (6 to 64 Years) (1 - PCV) [facility] [email or web address] Start: 1998 Varicella vaccination Varicella Vaccines (2 of 2 - 2-dose childhood series) [facility] [email or web address] Start: 07-10-1995 Varicella vaccination Varicella Vaccines (1 of 2 - 2-dose childhood series) [facility] [email or web address] Start: 1994 HIV screening HIV Screening [facility] Start: [address] Panel [facility] [email or web address] End: 09-30-2025 ECG COMPLETE ECG COMPLETE ECG Routine Family history of hypertrophic cardiomyopathy 1 Occurrences starting 09/30/2024 until 09/30/2025 [facility] Work Phone: Comment on above: 1 Occurrences starting 09/30/2024 until 09/30/2025 End: 08-13-2024 Echocardiography ECHO Cardiology Routine Family history of hypertrophic cardiomyopathy Chest pain, unspecified type 1 Occurrences starting 08/14/2023 until 08/13/2024 [facility] Work Phone: Comment on above: 1 Occurrences starting 08/14/2023 until 08/13/2024 H&P for surgery H&P FOR SURGERY Procedures Routine Calculus of gallbladder without cholecystitis without obstruction Ordered: 09/26/2024 [facility] Work Phone: Comment on above: Ordered: 09/26/2024 End: 03-29-2024 Neisseria gonorrhoeae DNA [Presence] in Cervical mucus by ELHAM with probe detection [facility] [email or web address] Work Phone: Comment on above: Once (Lab) for 1 Occurrences starting until 03/29/2024 PAP TEST PAP TEST Lab Mima russell Encounter for gynecological examination (general) (routine) without abnormal findings Screening for cervical cancer Encounter for screening for human papillomavirus (HPV) 06/03/2024 3:14 PM EST [facility] End: 08-13-2024 STRESS ECHO TREADMILL STRESS ECHO TREADMILL Cardiology Routine Family history of hypertrophic cardiomyopathy Chest pain, unspecified type 1 Occurrences starting 08/14/2023 until 08/13/2024 [facility] Work Phone: Comment on above: 1 Occurrences starting 08/14/2023 until 08/13/2024 [facility] Immunization Date Immunization Notes Care Provider Alexi garcia 03-07-2018 influenza virus vaccine, unspecified formulation Vannessa Ellis MD Work Phone: [facility] 01-27-2007 meningococcal polysaccharide (groups A, C, Y and W-135) diphtheria toxoid conjugate vaccine (MCV4P) [facility] Work Phone: [facility] 01-27-2007 Meningococcal, MCV4, unspecified conjugate formulation(groups A, C, Y and W-135) Nerissa Haskins [facility] Work Phone: 01-27-2007 tetanus toxoid, redu mónica diphtheria toxoid, and acellular pertussis vaccine, adsorbed Nerissa Marioshire [facility] Work Phone: 02-16-2000 poliovirus vaccine, inactivated [place] Khalid DO Work Phone: [facility] 05-22-1997 Chicken Pox (disease) Nerissa mauricio [facility] Work Phone: 05-22-1997 varicella virus vaccine [place] Khalid DO Work Phone: [facility] 06-12-1995 DTP-Haemophilus influenzae type b conjugate vaccine [place] Khalid DO Work Phone: [facility] 06-12-1995 hepatitis B vaccine, pediatric or pediatric/adolescent dosage Nerissa Haskins [facility] Work Phone: 06-12-1995 measles, mumps and rubella virus vaccine Nerissa Haskins [facility] Work Phone: 06-12-1995 Tetramune Nerissa Haskins [facility] Work Phone: 1994 DTP-Haemophilus influenzae type b conjugate vaccine Nerissa Haskins MA [facility] Work Phone: 1994 trivalent poliovirus vaccine, live, oral Nerissa Haskins MA [facility] Work Phone: 1994 DTP-Haemophilus influenzae type b conjugate vaccine Nerissa Haskins MA [facility] Work Phone: 1994 hepatitis B vaccine, pediatric or pediatric/adolescent dosage Nerissa Haskins MA [facility] Work Phone: 1994 trivalent poliovirus vaccine, live, oral Nerissa Haskins MA [facility] Work Phone: 1994 DTP-Haemophilus influenzae type b conjugate vaccine Nerissa Haskins MA [facility] Work Phone: 1994 hepatitis B vaccine, pediatric or pediatric/adolescent dosage Nerissa Haskins MA [facility] Work Phone: 1994 trivalent poliovirus vaccine, live, oral Nerissa Haskins [facility] Work Phone: Payers Date Payer Category Payer Self-pay 2022 Medicaid HMO [facility] ODM [id number] 2022 Unknown [id number] 2020 Unknown [facility] [id number] 2020-Present [phone] [address] [address] [place] [address] MCO [id number] 2017 Medicaid [id number] 2016 Unknown [id number] 1994 Unknown [id number] 1994 Unknown [id number] 1994 Unknown [id number] Unknown [id number] Unknown [id number] Unknown [id number] Unknown [id number] Unknown [id number] Unknown [id number] Unknown [id number] Unknown [id number] Social History Date Type Detail Facility Start: 11-01-[address] [facility] Current every day smoker [employer] Work Phone: History of tobacco use [facility] Start: 11-01-2020 End: 12-29-2023 Tobacco use and exposure Never used [facility] Start: 11-01-2020 End: 03-27-2023 Alcohol intake Lifetime non-drinker (finding) [employer] Work Phone: Start: 11-01-2020 History SDOH Alcohol Frequency 1 [facility] Work Phone: Start: 1994 Sex Assigned At Not on file S [facility] Work Phone: Start: 11-25-2022 End: 12-05-2022 Exposure to SARS-CoV-2 (event) Not sure [facility] Start: 10-20-2020 End: 12-29-2023 Tobacco smoking status CAIS Never smoked tobacco [facility] Work Phone: Start: 01-19-2021 End: 10-09-2024 Alcohol intake Current non-drinker of alcohol (finding) [facility] Start: 10-20-2020 End: 12-29-2023 Tobacco Comment vapes without nicotine [facility] Start: 1994 Sex Assigned At Female C [facility] Start: 12-05-2022 End: 09-09-2024 History of Social function [facility] Start: 12-05-2022 End: 09-09-2024 Tobacco use panel [facility] Start: 03-27-[address] [facility] Ex-smoker [facility] History of tobacco use Current smoker [facility] Has the [employer], [facility], or [employer] threatened to shut off services in your home in past 12Mo No [facility] Are you now , , , , never or living with a partner? [facility] How often to you hav e a drink containing alcohol? Never [facility] How many standard dr inks containing alcohol do you have on a typical day? Patient does not drink [facility] (I/We) worried whekim er (my/our) food would run out before (I/we) got money to buy more. Never true [facility] Start: 05-30-2023 Sexual orientation Bisexual (finding ) [facility] Tobacco Nicotine Use: Va ping Product in Last 90 Days. Type: Electronic Cigarettes (Vaping). [facility] Tobacco smoking status No Smokin g Status Entered [facility] Start: 12-20-2021 Sex Female (finding) [facility] Goals Date Patient Goal Desired Activity /State Personal health goal Functional Status Date Assessment Result Facility 08-23-2023 Functional Status Independent Melina Ross 09-02-2014 Are you deaf, or do you have serious difficulty hearing No 09/02/2014 2:30 PM EDT Sis Connors LPN No [facility] 09-02-2014 Are you blind, or do you have serious difficulty seeing, even when wearing glasses No 09/02/2014 2:30 PM EDT Sis Connors LPN No [facility] 09-02-2014 Do you have serious difficulty walking or climbing stairs No 09/02/2014 2:30 PM EDT Sis Connors LPN No [facility] 09-02-2014 Do you have difficul ty dressing or bathing No 09/02/2014 2:30 PM EDT Sis Connors LPN [facility] 09-02-2014 Because of a physica l, mental, or emotional condition, do you have difficulty doing errands alone such as visiting a physician's office or shopping No 09/02/2014 2:30 PM EDT Sis Connors LPN [facility] Mental Status Date Assessment Result Facility 08-23-2023 Mental Status Oriented x 4 Melina Petersen [place] 09-02-2014 Because of a physica l, mental, or emotional condition, do you have serious difficulty concentrating, remembering, or making decisions No 09/02/2014 2:30 PM EDT Sis Connors LPN No [facility] Clinical Notes 02-05-2015 to 10-16-2024 Telephone Encounter - Jan Drake - 10/16/2024 11:34 AM EDTTelephone Encounter - Jan Drake - 10/16/2024 11:34 AM EDTTelephone Encounter - Margarita Gallego RN - 09/30/2024 9:16 AM EDTAttachments Note Date & Type Note Facility 10-16-2024 Telephone encounter Note I phoned Agueda last Monday10/09/24 to remind her of her PST appointment on 10/10/24 (for her Lap Malissa on 10/17/24). She verified the appointment and said she'd be there. However when I cam into work yesterday I noticed that Agueda missed her PST appointment. I have made several attempts to contact her regarding this. I just phoned her and asked him if he knew how I could reach her and he said he does not know. I asked him if she is at work today and he said he doesn't know. He doesn't know where she is or when he will see her but I did ask if he would please ask her to call us and he said he would. I also see in her chart that her customer solutions specialist has been attempting to reach her regarding her clearance. They have also made multiple attempts including mailing her a letter to let her know they'd clear her if she has the EKG they ordered. Per [facility], she never had this done. I am postponing the patient's surgery. She will need to call the office when she is ready to proceed. [facility] 10-16-2024 Miscellaneous Notes I phoned Agueda last Monday10/09/24 to remind her of her PST appointment on 10/10/24 (for her Lap Malissa on 10/17/24). She verified the appointment and said she'd be there. However when I cam into work yesterday I noticed that Agueda missed her PST appointment. I have made several attempts to contact her regarding this. I just phoned her and asked him if he knew how I could reach her and he said he does not know. I asked him if she is at work today and he said he doesn't know. He doesn't know where she is or when he will see her but I did ask if he would please ask her to call us and he said he would. I also see in her chart that her customer solutions specialist has been attempting to reach her regarding her clearance. They have also made multiple attempts including mailing her a letter to let her know they'd clear her if she has the EKG they ordered. Per [facility], she never had this done. I am postponing the patient's surgery. She will need to call the office when she is ready to proceed. documented in this encounter [facility] 10-16-2024 Note HNO ID: [id number] Author: ASTRID GARCIA RN Service: Nursing Author Type: Registered Nurse Type: Nursing Progress Note Filed: 10/16/2024 08:20 Note Text: Alison, in OR scheduling, notified of need for HANDP, FTS for PAT appt. She will notify his office. [facility] 10-10-2024 Note HNO ID: [id number] Author: EZEQUIEL PAULINO APRN.CNP Service: Anesthesiology Author Type: Nurse Practitioner Type: Progress Notes Filed: 10/10/2024 15:29 Note Text: Summary: PAT Patient was no show for KERRYMarko García with surgery scheduling notified. [facility] 09-30-2024 Telephone encounter Note Called pt. No answer, no voicemail available. Margarita Gallego RN [facility] 09-30-2024 Miscellaneous Notes Called pt. No answer, no voicemail available. Margarita Gallego RN Pt not seen since 09/12. Needs an EKG at the very least (ordering one). Also needs a visit in general, not urgent. I will clear her without the visit, as long as she gets the EKG Cardiac Clearance dated 08/20/[address] Robertson available under the letter tab. Margarita Gallego RN documented in this encounter [facility] 09-30-2024 Telephone encounter Note Pt not seen since 09/12. Needs an EKG at the very least (ordering one). Also needs a visit in general, not urgent. I will clear her without the visit, as long as she gets the EKG [facility] 09-26-2024 Telephone encounter Note Cardiac Clearance dated 08/20/[address] Robertson available under the letter tab. Margarita Gallego RN [facility] 08-01-2024 History of Present illness Narrative Radiology Service Progress Note PATIENT NAME: Agueda Lewis DATE OF SERVICE: August 01, 2024 TIME: 11:24 AM PATIENT IDENTITY VERIFICATION COMPLETED USING TWO (2) IDENTIFIERS: Name and Date of confirmed by patient verbally. FALL SCREENING: Has the patient had 2 falls in the last year or 1 fall with injury or currently using an Ambulatory Assistive Device (Walker, Cane, Wheelchair, Crutches, etc.)? No PATIENT GENDER DATA: Assigned female at . status: : No status: NO. PATIENT RELEVANT IMPLANT DATA REVIEWED: Not Applicable PATIENT PRESENTS WITH AN IMPLANTABLE OR ATTACHED BACKEND TESTER: No RADIOLOGY DEPARTMENT: General X-ray: Exam(s) Completed: Upper Extremity X-Ray(s): Shoulder, AP / TRUE AP / AXILLARY left PERIPHERAL IV DATA: Not applicable SIGNED BY: REY DwyerR) August 01, 2024 11:24 AM documented in this encounter [facility] 08-01-2024 Note HNO ID: [id number] Author: DON DIMAS RT(R) Service: Radiology Author Type: Technologist Type: Progress Notes Filed: 08/01/2024 11:37 Note Text: Radiology Service Progress Note PATIENT NAME: Agueda Lewis DATE OF SERVICE: August 01, 2024 TIME: 11:24 AM PATIENT IDENTITY VERIFICATION COMPLETED USING TWO (2) IDENTIFIERS: Name and Date of confirmed by patient verbally. FALL SCREENING: Has the patient had 2 falls in the last year or 1 fall with injury or currently using an Ambulatory Assistive Device (Walker, Cane, Wheelchair, Crutches, etc.)? No PATIENT GENDER DATA: Assigned female at . status: : No status: NO. PATIENT RELEVANT IMPLANT DATA REVIEWED: Not Applicable PATIENT PRESENTS WITH AN IMPLANTABLE OR ATTACHED BACKEND TESTER: No RADIOLOGY DEPARTMENT: General X-ray: Exam(s) Completed: Upper Extremity X-Ray(s): Shoulder, AP / TRUE AP / AXILLARY left PERIPHERAL IV DATA: Not applicable SIGNED BY: MOHIT Dwyer) August 01, 2024 11:[address] [facility] 08-01-2024 Note HNO ID: [id number] Author: FRANCISCO COMBS MD Service: ? Author Type: Physician Type: Progress Notes Filed: 08/01/2024 11:52 Note Text: [place] [facility] Subjective Agueda Lewis is a 29 year old female. Patient presents with: Musculoskeletal Problem: Left shoulder pain, no injury noted x 2 days LROM, states unable to lift arm above shoulder height Left shoulder pain: Duration: started 2 days ago, insidious onset through the day Location: behind the left shoulder Character: aching, throbbing, and shooting with a lot of use Radiation: No. 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 Physical Exam Constitutional: General: She is not in acute distress. Neck: Comments: No shoulder pain with full neck ROM. No midline or paraspinal tenderness. Cardiovascular: Rate and Rhythm: Normal rate and regular rhythm. Heart sounds: No murmur heard. Pulmonary: Effort: Pulmonary effort is normal. Breath sounds: Normal breath sounds. Musculoskeletal: Left shoulder: Tenderness (Tender left trapezius. Nontender AC joint, glenohumeral joint, clavicle) and bony tenderness (Discomfort left sternoclavicular joint) present. No swelling, deformity or crepitus. Decreased range of motion (Pain with abduction or flexion above shoulder level). Left upper arm: No tenderness. Left elbow: No tenderness. Cervical back: Normal range of motion and neck supple. No spinous process tenderness or muscular tenderness. Comments: Negative impingement test. Negative crossarm test. Neurological: Mental Status: She is alert. 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 ASSESSMENT/PLAN: 1. Acute pain of left shoulder - ICD9: 719.41, ICD10: M25.512 - XR SHOULDER GENERAL 3V OR MORE AP/TRUE AP/OTHER LEFT -negative for fracture, dislocation, or lytic lesion. - IBUPROFEN 600 MG TABLET - CONSULT TO ORTHOPAEDICS -physically repetitive job may require further evaluation and treatment to allow return to full function. Francisco Combs MD Differential Diagnoses - Left trapezius strain, overuse syndrome is more likely for the following reason(s): Focal muscular tenderness - Radiculopathy is less likely for the following reason(s): No numbness or change in symptoms with neck position Disposition The patient was discharged. OTC Medications were advised: Procedures [facility] 08-01-2024 History of Present illness Narrative [facility] Subjective Agueda Lewis is a 29 year old female. Patient presents with: Musculoskeletal Problem: Left shoulder pain, no injury noted x 2 days LROM, states unable to lift arm above shoulder height Left shoulder pain: Duration: started 2 days ago, insidious onset through the day Location: behind the left shoulder Character: aching, throbbing, and shooting with a lot of use Radiation: No. Aggravating: lifting her arm above her shoulder Relieving: Pain relievers: ibuprofen, icy hot Associated: works a repetitive job Pertinent negatives: Denies numbness, weakness, known injury, fever Musculoskeletal Problem Review of Systems Objective BP 127/83 Pulse 80 Temp 37.1 C (98.8 F) Resp 20 Wt 123 kg (271 lb 2.7 oz) LMP 07/09/2024 (Exact Date) SpO2 99% BMI 37.82 kg/m Physical Exam Constitutional: General: She is not in acute distress. Neck: Comments: No shoulder pain with full neck ROM. No midline or paraspinal tenderness. Cardiovascular: Rate and Rhythm: Normal rate and regular rhythm. Heart sounds: No murmur heard. Pulmonary: Effort: Pulmonary effort is normal. Breath sounds: Normal breath sounds. Musculoskeletal: Left shoulder: Tenderness (Tender left trapezius. Nontender AC joint, glenohumeral joint, clavicle) and bony tenderness (Discomfort left sternoclavicular joint) present. No swelling, deformity or crepitus. Decreased range of motion (Pain with abduction or flexion above shoulder level). Left upper arm: No tenderness. Left elbow: No tenderness. Cervical back: Normal range of motion and neck supple. No spinous process tenderness or muscular tenderness. Comments: Negative impingement test. Negative crossarm test. Neurological: Mental Status: She is alert. 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 ASSESSMENT/PLAN: 1. Acute pain of left shoulder - ICD9: 719.41, ICD10: M25.512 - XR SHOULDER GENERAL 3V OR MORE AP/TRUE AP/OTHER LEFT -negative for fracture, dislocation, or lytic lesion. - IBUPROFEN 600 MG TABLET - CONSULT TO ORTHOPAEDICS -physically repetitive job may require further evaluation and treatment to allow return to full function. Francisco Combs MD Differential Diagnoses - Left trapezius strain, overuse syndrome is more likely for the following reason(s): Focal muscular tenderness - Radiculopathy is less likely for the following reason(s): No numbness or change in symptoms with neck position Disposition The patient was discharged. OTC Medications were advised: Procedures documented in this encounter [facility] 07-08-2024 Instructions Paramjit Robertson MD - 07/08/2024 3:20 PM EST Images from the original note were not included. Thank you for coming to see me today. It is my pleasure to take care of you. If you have any questions regarding your visit, please don't hesitate to contact us. Laparoscopic Cholecystectomy (Gallbladder Removal) What is a laparoscopic cholecystectomy (gallbladder removal)? A laparoscopic cholecystectomy is a surgery during which the doctor removes your gallbladder. This procedure uses several small cuts instead of one large one. A laparoscope, a narrow tube with a camera, is inserted through one incision. This allows your doctor to see your gallbladder on a screen. Your gallbladder is then removed through another small incision. When is a laparoscopic cholecystectomy used? The procedure is used when you have stones in your gallbladder. The gallbladder stores bile, a fluid made by your liver. Bile helps digest fats in the foods you eat. Gallstones can block the flow of bile in your digestive system. This blockage can cause bloating, nausea, vomiting, and pain in your abdomen, shoulder, back, or chest. Gallstones can also block the ducts that channel the bile from the liver or gallbladder to the intestine. Gallstones can cause the gallbladder to become infected. A blockage in the common bile duct can cause jaundice (yellowing of your skin or eyes) or irritate the pancreas. Gallbladder and surrounding anatomy What happens during the surgery? A general anesthetic is given to relax your muscles, prevent pain, and help you fall asleep. Your abdomen is inflated with carbon dioxide, a harmless gas. The laparoscope is then inserted through a cut in your navel, so your doctor can look inside. A cholangiogram (a special X-ray) may be done while the surgery is going on to check for stones in your common bile duct. Other instruments are then inserted through additional small incisions. Your gallbladder is removed through one of these incisions. What are the potential risks and complications? The risk of complications is very low, however, potential risks might include: Bleeding Infection Common bile duct injury Minor shoulder pain (from the carbon dioxide gas) Bile leakage What are the benefits of laparoscopic cholecystectomy? Less discomfort than regular surgery [place] hospital stay, with a quicker recovery time compared to regular (open) surgery Smaller scars than regular surgery Call your doctor if you experience: Increasing pain and redness at an incision (cut) site Fever higher than 101 degrees Draining at the incision site that increases or becomes foul smelling What is an open cholecystectomy? A cholecystectomy is the removal of your gallbladder through a cut in the upper abdomen. An open cholecystectomy might be required instead of a laparoscopic cholecystectomy because of: Major scarring from a previous surgery A bleeding disorder A condition that would make it difficult to see through the laparoscope What happens during an open cholecystectomy? A general anesthetic is given to relax your muscles, prevent pain, and help you fall asleep. A single cut is made below the right side of your rib cage or in the center of the abdomen. Your doctor can see the gallbladder and surrounding anatomy through the cut. The gallbladder is cut away from surrounding tissue. The blood supply is tied off and divided. Sometimes a cholangiogram (a special X-ray) is done to check for stones in the common bile duct. If there are stones in the common bile duct, they are removed at this time. The skin is closed using surgical clips and stitches. References [employer]. Cholecystectomy Accessed 11/27/2015. [employer]. Laparoscopic Gallbladder Removal (Patient Information from [facility] Accessed 11/27/2015. Copyright [id number] [facility]. All rights reserved documented in this encounter [facility] 07-08-2024 Note HNO ID: [id number] Author: PARAMJIT ROBERTSON MD Service: ? Author Type: Physician Type: Progress Notes Filed: 07/08/2024 16:50 Note Text: Agueda Lewis is a 29 year old female who is here for reevaluation. We last saw her about a year ago and at that point recommended a cholecystectomy. She reported having some cardiac issues and went to see a customer solutions specialist. She represents today for reevaluation regarding cholecystectomy. She is having more frequent symptoms especially with eating fatty foods. Repeat ultrasound did reveal cholelithiasis. ALLERGIES No Known Allergies Current Outpatient Medications Medication Sig QUEtiapine (SEROQUEL) 25 mg tablet Take 25 mg by mouth daily at bedtime. sertraline HCl (SERTRALINE ORAL) Take 125 mg by mouth once daily. ferrous sulfate (IRON) 325 mg (65 mg iron) tablet Take 325 mg by mouth daily with breakfast. No current facility-administered medications for this visit. PHYSICAL EXAM: BP 116/71 Pulse 77 Resp 20 Ht 5' 11 (1.80m) Wt 268 lb (121.6kg) LMP 04/24/2024 BMI 37.39 kg/(m2). General Appearance: Well appearing, alert, in no acute distress, well-hydrated, well nourished. and Obese. Abdomen: Negative findings: no masses palpable and no organomegaly, Positive findings: tenderness moderate RUQ. 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 Calculus of gallbladder without cholecystitis without obstruction - ICD9: 574.20, ICD10: K80.20 (primary diagnosis) I recommended proceeding with a laparoscopic cholecystectomy. The procedure was reviewed in detail including the risks, benefits and complications inherent to the procedure. These include, but are not limited to, bleeding, infection, other organ injury, bile leak, bile duct injury necessitating further surgery. The patient understood and was agreeable to proceed. We will ask cardiology for risk stratification 2. 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 Tobacco use - ICD9: 305.1, ICD10: Z72.0 - Cessation encouraged. - Physiologic and physical aspects of tobacco addiction as well as strategies for quitting were discussed. - Counseling was given focusing on the harmful effects of this addiction especially given the patient's medical condition(s) which will be worsened because of the chemicals in tobacco. - Counseling was given 5 minutes. Medical Decision Making: Problems: Moderate: 1+ chronic illnesses with change Data: Unique test result(s) reviewed: 1 Risk: Moderate: Decision on elective major surgery w/o risk factors Medical Decision Making Level: 4 - Moderate Paramjit Robertson M.D., .A.C.S. [facility] 07-08-2024 History of Present illness Narrative Agueda Lewis is a 29 year old female who is here for reevaluation. We last saw her about a year ago and at that point recommended a cholecystectomy. She reported having some cardiac issues and went to see a customer solutions specialist. She represents today for reevaluation regarding cholecystectomy. She is having more frequent symptoms especially with eating fatty foods. Repeat ultrasound did reveal cholelithiasis. ALLERGIES No Known Allergies Current Outpatient Medications Medication Sig QUEtiapine (SEROQUEL) 25 mg tablet Take 25 mg by mouth daily at bedtime. sertraline HCl (SERTRALINE ORAL) Take 125 mg by mouth once daily. ferrous sulfate (IRON) 325 mg (65 mg iron) tablet Take 325 mg by mouth daily with breakfast. No current facility-administered medications for this visit. PHYSICAL EXAM: BP 116/71 Pulse 77 Resp 20 Ht 5' 11 (1.80m) Wt 268 lb (121.6kg) LMP 04/24/2024 BMI 37.39 kg/(m^2). General Appearance: Well appearing, alert, in no acute distress, well-hydrated, well nourished. and Obese. Abdomen: Negative findings: no masses palpable and no organomegaly, Positive findings: tenderness moderate RUQ. 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 Calculus of gallbladder without cholecystitis without obstruction - ICD9: 574.20, ICD10: K80.20 (primary diagnosis) I recommended proceeding with a laparoscopic cholecystectomy. The procedure was reviewed in detail including the risks, benefits and complications inherent to the procedure. These include, but are not limited to, bleeding, infection, other organ injury, bile leak, bile duct injury necessitating further surgery. The patient understood and was agreeable to proceed. We will ask cardiology for risk stratification 2. 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 Tobacco use - ICD9: 305.1, ICD10: Z72.0 - Cessation encouraged. - Physiologic and physical aspects of tobacco addiction as well as strategies for quitting were discussed. - Counseling was given focusing on the harmful effects of this addiction especially given the patient's medical condition(s) which will be worsened because of the chemicals in tobacco. - Counseling was given 5 minutes. Medical Decision Making: Problems: Moderate: 1+ chronic illnesses with change Data: Unique test result(s) reviewed: 1 Risk: Moderate: Decision on elective major surgery w/o risk factors Medical Decision Making Level: 4 - Moderate Paramjit Robertson M.D., F.A.C.S. documented in this encounter [facility] 06-17-2024 Note HNO ID: [id number] Author: CAREY REYES MD Service: ? Author Type: Physician Type: Progress Notes Filed: 06/17/2024 11:47 Note Text: Agueda Lewis is a 29 year old female who presented for count team member ultrasound today. Encounter Diagnosis ICD-10-CM 1. Irregular menstrual cycle N92.6 Please see report under imaging tab. Carey Reyes MD June 17, 2024 11:[address] [facility] 06-17-2024 History of Present illness Narrative Agueda Lewis is a 29 year old female who presented for count team member ultrasound today. Encounter Diagnosis ICD-10-CM 1. Irregular menstrual cycle N92.6 Please see report under imaging tab. Carey Reyes MD June 17, 2024 11:45 AM documented in this encounter [facility] 06-03-2024 Note HNO ID: [id number] Author: ЕЛЕНА KIM APRN.CNP Service: ? Author Type: Nurse Practitioner Type: Progress Notes Filed: 06/03/2024 15:22 Note Text: Patient declined auto electrician. fatuma is a 29 year old who presents for an annual gynecologic exam with complaints, heavy and irregular bleeding, attempting x1 year. Age at Menarche: 10 Still get period: Yes LMP: 04/24/2024 flow lasting 4-5 with heavy flow in the middle Menses: cycles irregular x1 years. Typically every 28 days, but now she will have 2 a month or skip a month Bleeding amount bothersome: No Bleeding between periods: No Period symptoms: Breast tenderness and Cramps Sexually active: Yes Contraception: None Contraception frequency: Never HPV vaccine: No HPV:unknown Last pap smear: unknown Pt reported History of abnormal pap: No Pt reported Colposcopy: No. Leep: No. Cone biopsy: No. Bothersome pelvic pain: No Last mammogram: never OB History T2 L2 SAB0 IAB0 Ectopic0 Multiple0 Live Births2 Caul Dresser History LMP: 04/24/2024 (Exact Date), Having periods Age at Menarche: Age at First : Age at Menopause: Caul Dresser History Comments: Sexual Activity: Yes; Male Contraception: Not used PAST MEDICAL HISTORY Diagnosis Date Anemia Chest pain Chlamydia infection 07/15/2014 Cholelithiasis Depression GERD (gastroesophageal reflux disease) PMH - PAST MEDICAL HISTORY OF 12/18/2003 normal color vision PMH - PAST MEDICAL HISTORY OF age 4 fracture right elbow PMH - PAST MEDICAL HISTORY OF age 4 fracture right wrist PMH - PAST MEDICAL HISTORY OF bronchial infection Trichomonal infection 03/22/2015 PAST SURGICAL HISTORY Procedure Laterality Date ADENOIDECTOMY PRIMARY PAST SURGICAL HISTORY OF root canal FAMILY HISTORY Problem Relation Age of Onset Diabetes Maternal Grandmother other (sleep apnea) Maternal Grandmother Asthma Father Heart Mother hypertrophic cardiomyopathy SOCIAL HISTORY Social History Tobacco Use Smoking status: Never Smokeless tobacco: Never Tobacco comments: vapes without nicotine Vaping Use Vaping status: current everyday user Substances: Flavoring Devices: [employer] Substance Use Topics Alcohol use: No Drug use: No REVIEW OF SYSTEMS Abdomen: No abdominal pain, nausea, vomiting, diarrhea, or constipation. No bloating, early satiety, indigestion, or increased flatulence. Bladder: No dysuria, gross hematuria, urinary frequency, urinary urgency, or incontinence. Breast: No breast lumps, nipple d/c, overlying skin changes, redness or skin retraction. Allergies and current medication updated:Yes SENSITIVE EXAM: The sensitive examination was discussed with the Patient or Patient's Authorized Computer System Specialist. As applicable, any other physician, advance practice provider, medical student, or other health professional student that will be observing or involved in the sensitive examination for educational or training purposes was discussed with the Patient or Authorized Computer System Specialist. The Patient or Authorized Computer System Specialist has agreed to proceed with the sensitive examination. (Sensitive examination includes inspection and/or palpation of the breasts, pelvis, prostate and anorectal regions). EXAM: BP 122/68 Ht 5' 10.394 (1.79m) Wt 268 lb 3.2 oz (121.7kg) LMP 04/24/2024 BMI 38.05 kg/(m2). GENERAL: pleasant, female in no apparent distress HEENT: Normocephalic, atraumatic, mucus membranes moist, and no lesions DERMATOLOGY: Normal, without lesions, non-icteric, and non-hirsute BREAST: soft, non-tender, symmetric, no dominant mass, normal nipple-areolar complex, no lymphadenopathy, and no nipple discharge CHEST: Normal inspiratory effort ABDOMEN: soft, non-tender, and no masses PELVIC: external genitalia normal, normal Bartholin's glands, urethra, Welch's glands, no vulvar lesions, no cervical lesions, good vaginal support, physiologic discharge present, normal appearing perineal body and perianal region BIMANUAL: uterus normal size, shape and consistency, no adnexal masses, and non-tender RECTOVAGINAL: deferred. NEURO: alert and oriented x3,exam grossly non-focal EXTREMITIES: normal ASSESSMENT/PLAN: 1) Health maintenance: Pap done with HPV. Mammogram starting age 40. Nutrition, exercise and routine health maintenance exams reviewed. Calcium/Vitamin D supplementation information provided. Colon cancer screening: start at age 45 2) Contraception: none. Contraceptive options reviewed and information provided. 3) STD screening: Declined STD check. 4) Follow up one year or sooner as needed 5) PCOS panel ordered- Will notify patient of test results. Елена Kim APRN.[facility] 06-03-2024 History of Present illness Narrative Patient declined auto electrician. fatuma is a 29 year old who presents for an annual gynecologic exam with complaints, heavy and irregular bleeding, attempting x1 year. Age at Menarche: 10 Still get period: Yes LMP: 04/24/2024 flow lasting 4-5 with heavy flow in the middle Menses: cycles irregular x1 years. Typically every 28 days, but now she will have 2 a month or skip a month Bleeding amount bothersome: No Bleeding between periods: No Period symptoms: Breast tenderness and Cramps Sexually active: Yes Contraception: None Contraception frequency: Never HPV vaccine: No HPV:unknown Last pap smear: unknown Pt reported History of abnormal pap: No Pt reported Colposcopy: No. Leep: No. Cone biopsy: No. Bothersome pelvic pain: No Last mammogram: never OB History T2 L2 SAB0 IAB0 Ectopic0 Multiple0 Live Births2 Caul Dresser History LMP: 04/24/2024 (Exact Date), Having periods Age at Menarche: Age at First : Age at Menopause: Caul Dresser History Comments: Sexual Activity: Yes; Male Contraception: Not used PAST MEDICAL HISTORY Diagnosis Date Anemia Chest pain Chlamydia infection 07/15/2014 Cholelithiasis Depression GERD (gastroesophageal reflux disease) PMH - PAST MEDICAL HISTORY OF 12/18/2003 normal color vision PMH - PAST MEDICAL HISTORY OF age 4 fracture right elbow PMH - PAST MEDICAL HISTORY OF age 4 fracture right wrist PMH - PAST MEDICAL HISTORY OF bronchial infection Trichomonal infection 03/22/2015 PAST SURGICAL HISTORY Procedure Laterality Date ADENOIDECTOMY PRIMARY <AGE 11 PAST SURGICAL HISTORY OF root canal FAMILY HISTORY Problem Relation Age of Onset Diabetes Maternal Grandmother other (sleep apnea) Maternal Grandmother Asthma Father Heart Mother hypertrophic cardiomyopathy SOCIAL HISTORY Social History Tobacco Use Smoking status: Never Smokeless tobacco: Never Tobacco comments: vapes without nicotine Vaping Use Vaping status: current everyday user Substances: Flavoring Devices: [employer] tank Substance Use Topics Alcohol use: No Drug use: No REVIEW OF SYSTEMS Abdomen: No abdominal pain, nausea, vomiting, diarrhea, or constipation. No bloating, early satiety, indigestion, or increased flatulence. Bladder: No dysuria, gross hematuria, urinary frequency, urinary urgency, or incontinence. Breast: No breast lumps, nipple d/c, overlying skin changes, redness or skin retraction. Allergies and current medication updated:Yes SENSITIVE EXAM: The sensitive examination was discussed with the Patient or Patient's Authorized Computer System Specialist. As applicable, any other physician, advance practice provider, medical student, or other health professional student that will be observing or involved in the sensitive examination for educational or training purposes was discussed with the Patient or Authorized Computer System Specialist. The Patient or Authorized Computer System Specialist has agreed to proceed with the sensitive examination. (Sensitive examination includes inspection and/or palpation of the breasts, pelvis, prostate and anorectal regions). EXAM: BP 122/68 Ht 5' 10.394 (1.79m) Wt 268 lb 3.2 oz (121.7kg) LMP 04/24/2024 BMI 38.05 kg/(m^2). GENERAL: pleasant, female in no apparent distress HEENT: Normocephalic, atraumatic, mucus membranes moist, and no lesions DERMATOLOGY: Normal, without lesions, non-icteric, and non-hirsute BREAST: soft, non-tender, symmetric, no dominant mass, normal nipple-areolar complex, no lymphadenopathy, and no nipple discharge CHEST: Normal inspiratory effort ABDOMEN: soft, non-tender, and no masses PELVIC: external genitalia normal, normal Bartholin's glands, urethra, Welch's glands, no vulvar lesions, no cervical lesions, good vaginal support, physiologic discharge present, normal appearing perineal body and perianal region BIMANUAL: uterus normal size, shape and consistency, no adnexal masses, and non-tender RECTOVAGINAL: deferred. NEURO: alert and oriented x3,exam grossly non-focal EXTREMITIES: normal ASSESSMENT/PLAN: 1) Health maintenance: Pap done with HPV. Mammogram starting age 40. Nutrition, exercise and routine health maintenance exams reviewed. Calcium/Vitamin D supplementation information provided. Colon cancer screening: start at age 45 2) Contraception: none. Contraceptive options reviewed and information provided. 3) STD screening: Declined STD check. 4) Follow up one year or sooner as needed 5) PCOS panel ordered- Will notify patient of test results. Елена Kim APRN.CHRISTINE documented in this encounter [facility] 04-25-2024 Telephone encounter Note I spoke to Agueda Lewis and informed them of 's response to Echo results and recommendations. Patient voiced understanding. Christine Lemon LPN [facility] 04-25-2024 Miscellaneous Notes I spoke to Agueda Lewis and informed them of 's response to Echo results and recommendations. Patient voiced understanding. Christine Lemon LPN ----- Message from Orestes Heath MD sent at 04/24/2024 9:35 PM EST ----- Normal left ventricular size, with mild left ventricular hypertrophy. The LV ejection fraction is 69%. Normal diastolic function. Normal right ventricular size, systolic function, without significant valvular abnormalities. No significant suggestion of hypertrophic obstructive cardiomyopathy on this echo. documented in this encounter [facility] 04-25-2024 Telephone encounter Note ----- Message from Orestes Heath MD sent at 04/24/2024 9:35 PM EST ----- Normal left ventricular size, with mild left ventricular hypertrophy. The LV ejection fraction is 69%. Normal diastolic function. Normal right ventricular size, systolic function, without significant valvular abnormalities. No significant suggestion of hypertrophic obstructive cardiomyopathy on this echo. [facility] 04-02-2024 History of Present illness Narrative Chart reviewed of ED follow up Seen in [facility] ED on 03/29/2024 Reason: Abdominal pain-gallstones Discharge instructions: Follow-up with surgery. Patient has appointment scheduled with General Surgery on 04/11/24. ID8-Mobile message sent. documented in this encounter [facility] 04-01-2024 Telephone encounter Note Spoke with patient and she is scheduled. DP [facility] 04-01-2024 Miscellaneous Notes Spoke with patient and she is scheduled. DP Please contact patient to schedule. ED provider requesting appointment for patient to see a surgeon for biliary colic. ED provider advised that a message would be sent to management and that they will reach out to the patient on Monday to assist with scheduling. documented in this encounter [facility] 04-01-2024 Telephone encounter Note Please contact patient to schedule. [facility] 03-29-2024 Telephone encounter Note ED provider requesting appointment for patient to see a surgeon for biliary colic. ED provider advised that a message would be sent to management and that they will reach out to the patient on Monday to assist with scheduling. [facility] 03-29-2024 Hospital Discharge instructions Vince Hope MD - 03/29/2024 8:43 PM EST Please continue to take ibuprofen as needed for your pain. If your symptoms return or persistent please come back to the ER for repeat evaluation. The scheduling service will be reaching out to you to follow-up with surgery. The following attachments cannot be sent through Care Everywhere.Gallstones (Uzbek)Trichomoniasis Discharge Instructions (Uzbek)documented in this encounter [facility] 03-29-2024 Emergency department Note Attempted PIV x2; unsuccessful. Will notify oncoming RN. [facility] 03-29-2024 Emergency department Note Attempted PIV x2; unsuccessful. Will notify oncoming RN. Patient states that she has had RUQ pain intermittently for the past couple weeks. States that she has hx of gallstones. Denies abdominal surgical hx. Endorses nausea w/out vomiting. documented in this encounter [facility] 03-29-2024 Emergency department Triage note Patient states that she has had RUQ pain intermittently for the past couple weeks. States that she has hx of gallstones. Denies abdominal surgical hx. Endorses nausea w/out vomiting. [facility] 02-27-2024 Telephone encounter Note Mychart sent to call and rescheduling testing needing for clearance prior to proceeding with surgery Janeen John Diamond Mounter [facility] 02-27-2024 Miscellaneous Notes Mychart sent to call and rescheduling testing needing for clearance prior to proceeding with surgery Janeen [facility] Patient had no showed her echo stress test yesterday 02/26/2024 Patient is aware she is not able to proceed with scheduling surgery until test has been completed and she has been cleared Janeen [facility]ounter ' Per Dr. Jasso's office note The patient wishes to proceed with surgery but I told her to schedule for stress ECHO prior to consideration for surgery Patient acknowledges above. Patient to complete 02/26/2024 ECHO test prior to discussing dates for gall bladder surgery Janeen [facility]ounter documented in this encounter [facility] 02-27-2024 Telephone encounter Note Patient had no showed her echo stress test yesterday 02/26/2024 Patient is aware she is not able to proceed with scheduling surgery until test has been completed and she has been cleared Janeen [facility] ' [facility] 02-16-2024 Note Chart reviewed of ED follow up Seen in [facility] ED on 02/14/24 Reason: Abdominal pain Discharge instructions: Patient left AMA ED message and education sent via Given[facility]to [facility] 01-16-2024 Telephone encounter Note Per Dr. Jasso's office note The patient wishes to proceed with surgery but I told her to schedule for stress ECHO prior to consideration for surgery Patient acknowledges above. Patient to complete 02/26/2024 ECHO test prior to discussing dates for gall bladder surgery Janeen John [facility] 12-29-2023 Nurse Note REVIEW OF SYSTEMS: General: The patient NOTES fatigue, denies weight loss, denies weight gain, NOTES feeling hot, and denies feelings of cold. Eyes: The patient denies glaucoma, denies eye injury/surgery, wears glasses or contacts. Ear/Nose/Throat: The patient denies allergies, denies hayfever, denies ear infections, and denies bloody noses. Cardiovascular: The patient NOTES chest pain, denies heart disease, denies high blood pressure,denies cardiac stent, denies prior heart attack, denies irregular heart beat, denies high cholesterol, denies poor circulation, denies heart failure, other cardiac issues, NOTES claudication, denies cold feet, denies peripheral arterial stent. Respiratory: The patient denies tuberculosis, denies pneumonia, denies frequent cough, denies pulmonary embolism, denies shortness of breath, and denies coughing up blood. Gastrointestinal: The patient denies difficulty swallowing, NOTES acid reflux, denies ulcers, denies vomiting, denies jaundice/hepatitis, NOTES gallbladder problems, denies black or tarry stools, denies hemorrhoids, denies bleeding from rectum, denies diverticulitis, denies constipation, denies diarrhea, denies loss of stool control, and denies hernias. Kidney/Bladder: The patient denies kidney stones, denies urine infections, and denies bloody urine. Skin: The patient denies a history of skin cancer, denies bleeding/changing moles, and denies a history of skin rash. Neurologic: The patient denies a history of epilepsy/convulsions, NOTES headaches, denies head/spinal injuries, and denies stroke/TIA. Psychiatric: The patient NOTES psychiatric medications, NOTES depression, and denies voices, denies substance abuse. Endocrine: The patient denies thyroid disorders, denies diabetes, and denies hormonal problems. Hematologic: The patient denies a history of bruising, denies bleeding, and NOTES anemia, denies blood clots. Infections: The patient denies a history of measles and mumps, denies rheumatic fever, and denies sexually transmitted diseases. Musculoskeletal: The patient denies back pain/injury, denies back problems, denies sciatica, NOTES knee/foot trouble, denies arthritis, or denies gout. When was patient's last Mammogram screening? N/A Last Colonoscopy: None Fidelina Downing RN [facility] 12-29-2023 Nurse Note REVIEW OF SYSTEMS: General: The patient NOTES fatigue, denies weight loss, denies weight gain, NOTES feeling hot, and denies feelings of cold. Eyes: The patient denies glaucoma, denies eye injury/surgery, wears glasses or contacts. Ear/Nose/Throat: The patient denies allergies, denies hayfever, denies ear infections, and denies bloody noses. Cardiovascular: The patient NOTES chest pain, denies heart disease, denies high blood pressure,denies cardiac stent, denies prior heart attack, denies irregular heart beat, denies high cholesterol, denies poor circulation, denies heart failure, other cardiac issues, NOTES claudication, denies cold feet, denies peripheral arterial stent. Respiratory: The patient denies tuberculosis, denies pneumonia, denies frequent cough, denies pulmonary embolism, denies shortness of breath, and denies coughing up blood. Gastrointestinal: The patient denies difficulty swallowing, NOTES acid reflux, denies ulcers, denies vomiting, denies jaundice/hepatitis, NOTES gallbladder problems, denies black or tarry stools, denies hemorrhoids, denies bleeding from rectum, denies diverticulitis, denies constipation, denies diarrhea, denies loss of stool control, and denies hernias. Kidney/Bladder: The patient denies kidney stones, denies urine infections, and denies bloody urine. Skin: The patient denies a history of skin cancer, denies bleeding/changing moles, and denies a history of skin rash. Neurologic: The patient denies a history of epilepsy/convulsions, NOTES headaches, denies head/spinal injuries, and denies stroke/TIA. Psychiatric: The patient NOTES psychiatric medications, NOTES depression, and denies voices, denies substance abuse. Endocrine: The patient denies thyroid disorders, denies diabetes, and denies hormonal problems. Hematologic: The patient denies a history of bruising, denies bleeding, and NOTES anemia, denies blood clots. Infections: The patient denies a history of measles and mumps, denies rheumatic fever, and denies sexually transmitted diseases. Musculoskeletal: The patient denies back pain/injury, denies back problems, denies sciatica, NOTES knee/foot trouble, denies arthritis, or denies gout. When was patient's last Mammogram screening? N/A Last Colonoscopy: None Fidelina Downing RN documented in this encounter [facility] 12-29-2023 Note HNO ID: [id number] Author: MARY JASSO MD Service: ? Author Type: Physician Type: Progress Notes Filed: 12/29/2023 20:35 Note Text: HISTORY AND PHYSICAL Agueda Lewis 1995 REFERRING PHYSICIAN: Self CHIEF COMPLAINT: ER follow-up, abdominal pain. HPI: The patient is a 28 year old female presents with epigastric and RUQ abdominal pain She states that the pain is sharp and stabbing and radiates to the back. She has known cholelithiasis She notes nausea and emesis and occasional loose stools. She denies previous abdominal surgery. She had been seen by a surgeon at [facility] who recommended cardiology consultation The patient does complain of occasional chest pain. She was seen by a customer solutions specialist who recommended stress echocardiogram prior to any surgery. Patient did not follow through with this PAST MEDICAL HISTORY 07/15/2014: Chlamydia infection No date: Cholelithiasis 12/18/2003: PMH - PAST MEDICAL HISTORY OF Comment: normal color vision age 4: PMH - PAST MEDICAL HISTORY OF Comment: fracture right elbow age 4: PMH - PAST MEDICAL HISTORY OF Comment: fracture right wrist No date: PM - PAST MEDICAL HISTORY OF Comment: bronchial infection 03/22/2015: Trichomonal infection PAST SURGICAL HISTORY No date: ADENOIDECTOMY PRIMARY No date: PAST SURGICAL HISTORY OF Comment: root canal Current Outpatient Medications Medication Sig sertraline HCl (SERTRALINE ORAL) Take 125 mg by mouth once daily. pantoprazole DR (PROTONIX) 40 mg tablet Take 1 tablet by mouth once daily. ferrous sulfate (IRON) 325 mg (65 mg iron) tablet Take 325 mg by mouth daily with breakfast. trazodone HCl (TRAZODONE ORAL) Take by mouth. escitalopram oxalate (LEXAPRO) 10 mg tablet Take 10 mg by mouth once daily. albuterol HFA (VENTOLIN HFA) 90 mcg/actuation inhaler Inhale 2 Puffs as instructed every 4 hours as needed for wheezing/shortness of breath. No current facility-administered medications for this visit. ALLERGIES: Patient has no known allergies. PERSONAL HISTORY: Social History Tobacco Use Smoking status: Never Smokeless tobacco: Never Tobacco comments: vapes without nicotine Vaping Use Vaping Use: current everyday user Substances: Flavoring Devices: Refillable tank Substance Use Topics Alcohol use: No Drug use: No FAMILY HISTORY Problem Relation Age of Onset Diabetes Maternal Grandmother other (sleep apnea) Maternal Grandmother Asthma Father Heart Mother hypertrophic cardiomyopathy The review of systems data was entered by the nurse and reviewed by me Nursing Notes: Fidelina Downing RN 12/29/2023 11:33 AM Signed REVIEW OF SYSTEMS: General: The patient NOTES fatigue, denies weight loss, denies weight gain, NOTES feeling hot, and denies feelings of cold. Eyes: The patient denies glaucoma, denies eye injury/surgery, wears glasses or contacts. Ear/Nose/Throat: The patient denies allergies, denies hayfever, denies ear infections, and denies bloody noses. Cardiovascular: The patient NOTES chest pain, denies heart disease, denies high blood pressure,denies cardiac stent, denies prior heart attack, denies irregular heart beat, denies high cholesterol, denies poor circulation, denies heart failure, other cardiac issues, NOTES claudication, denies cold feet, denies peripheral arterial stent. Respiratory: The patient denies tuberculosis, denies pneumonia, denies frequent cough, denies pulmonary embolism, denies shortness of breath, and denies coughing up blood. Gastrointestinal: The patient denies difficulty swallowing, NOTES acid reflux, denies ulcers, denies vomiting, denies jaundice/hepatitis, NOTES gallbladder problems, denies black or tarry stools, denies hemorrhoids, denies bleeding from rectum, denies diverticulitis, denies constipation, denies diarrhea, denies loss of stool control, and denies hernias. Kidney/Bladder: The patient denies kidney stones, denies urine infections, and denies bloody urine. Skin: The patient denies a history of skin cancer, denies bleeding/changing moles, and denies a history of skin rash. Neurologic: The patient denies a history of epilepsy/convulsions, NOTES headaches, denies head/spinal injuries, and denies stroke/TIA. Psychiatric: The patient NOTES psychiatric medications, NOTES depression, and denies voices, denies substance abuse. Endocrine: The patient denies thyroid disorders, denies diabetes, and denies hormonal problems. Hematologic: The patient denies a history of bruising, denies bleeding, and NOTES anemia, denies blood clots. Infections: The patient denies a history of measles and mumps, denies rheumatic fever, and denies sexually transmitted diseases. Musculoskeletal: The patient denies back pain/injury, denies back problems, denies sciatica, NOTES knee/foot trouble, denies arthritis, or denies gout. When was patient's last Mammogram screening? N/A Last Colonoscopy: None Fidelina Arc (more content not included)... [facility] 12-29-2023 History of Present illness Narrative HISTORY AND PHYSICAL Agueda Lewis 1995 REFERRING PHYSICIAN: Self CHIEF COMPLAINT: ER follow-up, abdominal pain. HPI: The patient is a 28 year old female presents with epigastric and RUQ abdominal pain She states that the pain is sharp and stabbing and radiates to the back. She has known cholelithiasis She notes nausea and emesis and occasional loose stools. She denies previous abdominal surgery. She had been seen by a surgeon at [facility] who recommended cardiology consultation The patient does complain of occasional chest pain. She was seen by a customer solutions specialist who recommended stress echocardiogram prior to any surgery. Patient did not follow through with this PAST MEDICAL HISTORY 07/15/2014: Chlamydia infection No date: Cholelithiasis 12/18/2003: PM - PAST MEDICAL HISTORY OF Comment: normal color vision age 4: PMH - PAST MEDICAL HISTORY OF Comment: fracture right elbow age 4: PMH - PAST MEDICAL HISTORY OF Comment: fracture right wrist No date: PM - PAST MEDICAL HISTORY OF Comment: bronchial infection 03/22/2015: Trichomonal infection PAST SURGICAL HISTORY No date: ADENOIDECTOMY PRIMARY <AGE 11 No date: PAST SURGICAL HISTORY OF Comment: root canal Current Outpatient Medications Medication Sig sertraline HCl (SERTRALINE ORAL) Take 125 mg by mouth once daily. pantoprazole DR (PROTONIX) 40 mg tablet Take 1 tablet by mouth once daily. ferrous sulfate (IRON) 325 mg (65 mg iron) tablet Take 325 mg by mouth daily with breakfast. trazodone HCl (TRAZODONE ORAL) Take by mouth. escitalopram oxalate (LEXAPRO) 10 mg tablet Take 10 mg by mouth once daily. albuterol HFA (VENTOLIN HFA) 90 mcg/actuation inhaler Inhale 2 Puffs as instructed every 4 hours as needed for wheezing/shortness of breath. No current facility-administered medications for this visit. ALLERGIES: Patient has no known allergies. PERSONAL HISTORY: Social History Tobacco Use Smoking status: Never Smokeless tobacco: Never Tobacco comments: vapes without nicotine Vaping Use Vaping Use: current everyday user Substances: Flavoring Devices: [employer] tank Substance Use Topics Alcohol use: No Drug use: No FAMILY HISTORY Problem Relation Age of Onset Diabetes Maternal Grandmother other (sleep apnea) Maternal Grandmother Asthma Father Heart Mother hypertrophic cardiomyopathy The review of systems data was entered by the nurse and reviewed by ri Nursing Notes: Fidelina Downing RN 12/29/2023 11:33 AM Signed REVIEW OF SYSTEMS: General: The patient NOTES fatigue, denies weight loss, denies weight gain, NOTES feeling hot, and denies feelings of cold. Eyes: The patient denies glaucoma, denies eye injury/surgery, wears glasses or contacts. Ear/Nose/Throat: The patient denies allergies, denies hayfever, denies ear infections, and denies bloody noses. Cardiovascular: The patient NOTES chest pain, denies heart disease, denies high blood pressure,denies cardiac stent, denies prior heart attack, denies irregular heart beat, denies high cholesterol, denies poor circulation, denies heart failure, other cardiac issues, NOTES claudication, denies cold feet, denies peripheral arterial stent. Respiratory: The patient denies tuberculosis, denies pneumonia, denies frequent cough, denies pulmonary embolism, denies shortness of breath, and denies coughing up blood. Gastrointestinal: The patient denies difficulty swallowing, NOTES acid reflux, denies ulcers, denies vomiting, denies jaundice/hepatitis, NOTES gallbladder problems, denies black or tarry stools, denies hemorrhoids, denies bleeding from rectum, denies diverticulitis, denies constipation, denies diarrhea, denies loss of stool control, and denies hernias. Kidney/Bladder: The patient denies kidney stones, denies urine infections, and denies bloody urine. Skin: The patient denies a history of skin cancer, denies bleeding/changing moles, and denies a history of skin rash. Neurologic: The patient denies a history of epilepsy/convulsions, NOTES headaches, denies head/spinal injuries, and denies stroke/TIA. Psychiatric: The patient NOTES psychiatric medications, NOTES depression, and denies voices, denies substance abuse. Endocrine: The patient denies thyroid disorders, denies diabetes, and denies hormonal problems. Hematologic: The patient denies a history of bruising, denies bleeding, and NOTES anemia, denies blood clots. Infections: The patient denies a history of measles and mumps, denies rheumatic fever, and denies sexually transmitted diseases. Musculoskeletal: The patient denies back pain/injury, denies back problems, denies sciatica, NOTES knee/foot trouble, denies arthritis, or denies gout. When was patient's last Mammogram screening? N/A Last Colonoscopy: None Fidelina Downing RN PHYSICAL EXAMINATION: General: The patient is 28 year old female, well nourished, well hydrated in no acute distress. The patient is oriented to time, place, and person. VITALS: Blood pressure 108/66, pulse 117, temperature 36.1 C (96.9 F), height 180.3 cm (5' 11), weight 121.5 kg (267 lb 12.8 oz), last menstrual period 11/25/2020, SpO2 98%. Body mass index is 37.35 kg/m . Head: Normal cephalic, atraumatic Eyes: pupils are equally round, sclera are clear/anicteric Neck is supple with no tracheal deviation Cardiac: normal heart sounds, regular Respiratory: Normal respiratory excursion and pattern. Abdominal exam: benign Extremities: no clubbing, cyanosis or edema. Neuro: non focal Psych: normal mood Assessment IMPRESSION: cholelithiasis, customer solutions specialist recommended stress ECHO prior to surgery PLAN: I have discussed the above with the patient. I have recommended that patient follow through with stress ECHO prior to scheduling for surgery I have explained the procedure of laparoscopic cholecystectomy to the patient. I have counseled the patient as to the risks of the procedure, including but not limited to: infection, bleeding, injury to any blood vessels/nerves, scar tissue, injury to any intrabdominal organs, injury to bowel/bladder, injury to the common bile duct/biliary tree, bile leakage, intraabdominal abscess/bleeding, hernias at incisional sites, wound infections, complications of anesthesia, etc. - the patient understands. The patient wishes to proceed with surgery but I told her to schedule for stress ECHO prior to consideration for surgery Patient acknowledges above. I have answered all questions to the patient s satisfaction and the patient has no further questions. I have confirmed and edited as necessary, the PFSH and ROS obtained by others. . Diagnoses: (K80.20) Calculus of gallbladder without cholecystitis without obstruction (primary encounter diagnosis) (R10.11) RUQ abdominal pain (R07.9) Chest pain, unspecified type I spent a total of 31 minutes on the date of the service which included preparing to see the patient with review of any pertinent laboratory studies/radiological imaging/medical records from other medical facilities such as [facility], [id number] patient care, obtaining oral medical history from the patient in this encounter, performing a medically appropriate examination, counseling and educating the patient/family/caregiver, and ordering and/or scheduling of medications/tests/procedures, and completing appropriate medical documentation. Mary Jasso MD documented in this encounter [facility] 12-15-2023 Note [facility] Medical Records Department [address] [place] [address] History Physical Exam 12/15/23 0927 MR#: [id number] Acct: [id number] Name: AGUEDA LEWIS R Rep #: [id number] : 1995 28 From: Vince Flores MD PCP: Care Physician,No Primary Status:[facility] Location: [facility]15-1 History and Physical Date of Admission: 12/15/23 MR#: [id number] Acct: [id number] Name: AGUEDA LEWIS R Rep #: [id number] : 1995 Provider: Dr. Vince Flores MD Age/Sex: 28/F Location: [facility] Status: Signed Intake Vital Signs 11/02/2409:11 11/27/2403:19 11/30/2412:33 Height 5 ft 11 in 5 ft 11 in 6 ft Weight: 271 lb BMI 36.7 BP 110/79 Blood Pressure Location Rt brachial Position Sitting Respiration 18 Pulse 91 Pulse Source Monitor Temp 97.6 F L Temp Source Temporal Pulse Oximetry (%) 99 Oxygen Delivery Method room air Intake Visit Reasons: F/U ED - GALLSTONES Chief Complaint: F/U ED- GALLSTONES Accompanied by: Friend Is patient in pain?: No Allergies No Known Allergies Allergy (Verified 12/01/23 13:34) Medications ???Medication ???Instructions ???Recorded ???Confirmed ???Type ondansetron 4 mg disintegrating 4 mg PO TID PRN nausea and 11/27/23 12/01/23 Rx tablet vomiting #21 tabs oxycodone-acetaminophen 5 mg-325 1 tab PO Q6H PRN pain 3 days #12 11/27/23 12/01/23 Rx mg tablet (Percocet) tabs quetiapine 25 mg tablet 25 mg PO QHS 11/27/23 12/01/23 History sertraline 100 mg tablet 100 mg PO DAILY 11/27/23 12/01/23 History pantoprazole 20 mg tablet,delayed 20 mg PO DAILY #30 tabs 12/01/23 12/01/23 Rx release Have you fallen in the past year?: No PFSH Medical History Heart murmur Anemia Gallstone Surgical History H/O adenoidectomy Family History (Updated 12/01/23 @ 13:33 by Sis Stevenson LPN) Grandmother DiabetesMother Heart disease Social History Smoking Status: Current every day smoker tobacco type: e-cigarettes HPI HPI HPI: Patient is a 28-year-old female who presents for possible biliary colic. They are referred for surgical consultation from emergency medicine as she has not established a PCP. Patient states that she is recently relocated to [facility] from [facility]. She describes presence of both right upper quadrant and central upper abdominal pain. She notes that her right upper abdominal pain started 6 months ago while the more central pain started 2 to 3 days ago. She shares that the pain seems to come and go. She declares that fatty foods seem to provoke the pain but that the pain starts immediately after eating. She also denies any association with time of day. She does claim that there is 1 episode of nausea but no vomiting. She denies any associated fevers or chills. The only other trigger besides food that she has identified is that sometimes it hurts more when leaning forward. She confirms that her bowel movements have been normal. She denies any history of reflux or heartburn. Given the above symptoms patient was referred to surgery and she states flatly that they did not recommend proceeding for surgery but offered that she could consider HIDA imaging. Previous work-up has included: Right upper quadrant ultrasound was performed on 11/03/2023 patient was found to have evidence of cholelithiasis with normal wall and normal duct. Patient reveals a past medical history of a heart murmur which she states was rather an incidental finding during a workup for anemia around the time of delivery of her second child in 2017. She states that she has undergone a couple of echocardiograms through [facility] that have been reassuring. She estimates that the last such study was performed a year ago. Concerning her history of anemia she denies being told the probable cause but does state that she was prescribed iron and she is no longer carrying on with this supplementation. Patient's only past surgical history was that of an adenoidectomy. ROS General General: Yes weight change (gain); No appetite, fatigue, colon cancer, breast cancer or weakness HEENT HEENT: No difficulty swallowing, eye injury, eye surgery, swollen glands or hoarseness Endo Endocrine: No thyroid disease, diabetes mellitus, thyroid cancer, Hair loss, heat intolerance or cold intolerance Skin Skin: No rash or changing moles Musc Musculoskeletal: No back problems, arthritis, rheumatoid arthritis, gout or joint pain Cardio Cardiovascular: Yes murmur; No pacemaker, heart disease, atrial fibrillatio (more content not included)... [facility] 08-23-2023 Hospital Discharge instructions Patient Education 08/23/2023 21:52:23 Shoulder Sprain Shoulder Sprain A sprain is a stretching or tearing of the ligaments that hold a joint together. A sprain may take up to 8 weeks to fully heal, depending on how severe it is. Moderate to severe shoulder sprains are treated with a sling or shoulder immobilizer. Minor sprains can be treated without any special support. Home care The following guidelines will help you care for your injury at home: If a sling was given to you, leave it in place for the time advised by your healthcare provider. If you aren t sure how long to wear it, ask for advice. If the sling becomes loose, adjust it so that your forearm is level with the ground. Your shoulder should feel well supported. Put an ice pack on the injured area for 20 minutes every 1 to 2 hours the first day. You can make your own ice pack by putting ice cubes in a plastic bag. A bag of frozen peas or something similar works well too. Wrap the bag in a thin towel. Continue with ice packs 3 to 4 times a day for the next 2 to 3 days. Then use the pack as needed to ease pain and swelling. You may use acetaminophen or ibuprofen to control pain, unless another pain medicine was prescribed. If you have chronic liver or kidney disease, talk with your healthcare provider before using these medicines. Also talk with your provider if you ve had a stomach ulcer or gastrointestinal bleeding. Shoulder joints become stiff if left in a sling for too long. You should start range of motion exercises about 7 to 10 days after the injury. Talk with your provider to find out what type of exercises to do and how soon to start. Follow-up care Follow up with your healthcare provider, or as advised. Any X-rays you had today don t show any broken bones, breaks, or fractures. Sometimes fractures don t show up on the first X-ray. Bruises and sprains can sometimes hurt as much as a fracture. These injuries can take time to heal completely. If your symptoms don t improve or they get worse, talk with your provider. You may need a repeat X-ray or other treatments. When to seek medical advice Call your healthcare provider right away if any of these occur: Shoulder pain or swelling in your arm that gets worse Fingers become cold, blue, numb, or tingly Large amount of bruising of the shoulder or upper arm Fever or chills [id number] [employer]. [address] [place] [address], [place] [address]. All rights reserved. This information is not intended as a substitute for professional medical care. Always follow your healthcare professional's instructions. Follow Up Care 08/23/2023 21:23:12 With:BOB AMADOR DO Address: [address] [place] [address] [phone] When:2-4 days [facility] 08-23-2023 Note Discharge Instructions Thank you for allowing [facility] to assist you with your healthcare needs. The following is important discharge information regarding your hospital visit. Diagnosis from Today's Visit Shoulder injury - Minor What to Do Next Instructions from Your Care Team No qualifying data available. Post Acute Orders No qualifying data available. You Need to Schedule the Following Appointments Follow Up with BOB AMADOR DO When Within 2-4 days Where: [address] [place] [phone] Allergies NKA Medications Please ask your primary doctor or pharmacist before taking any other medication not listed, including over the counter drugs, herbal medications, vitamins and or supplements as they may interact with your home medications. What How Much When Instructions Last Dose New baclofen (baclofen 20 mg oral tablet) 1 tab(s) by mouth Two (2) times a day Duration: 5 Days Printed Prescription New lidocaine topical (Lidoderm 5% topical patch) 1 patch(es) Topical Every day Duration: 7 Days Printed Prescription Please take this list to your next doctor s visit. Bring all medications you take, including over the counter medications, herbals and other supplements with you to your doctor s visit. Patients and families are reminded to discard old lists and to update any records with all medication providers or retail pharmacies. Education Materials Shoulder Sprain A sprain is a stretching or tearing of the ligaments that hold a joint together. A sprain may take up to 8 weeks to fully heal, depending on how severe it is. Moderate to severe shoulder sprains are treated with a sling or shoulder immobilizer. Minor sprains can be treated without any special support. Home care The following guidelines will help you care for your injury at home: If a sling was given to you, leave it in place for the time advised by your healthcare provider. If you aren t sure how long to wear it, ask for advice. If the sling becomes loose, adjust it so that your forearm is level with the ground. Your shoulder should feel well supported. Put an ice pack on the injured area for 20 minutes every 1 to 2 hours the first day. You can make your own ice pack by putting ice cubes in a plastic bag. A bag of frozen peas or something similar works well too. Wrap the bag in a thin towel. Continue with ice packs 3 to 4 times a day for the next 2 to 3 days. Then use the pack as needed to ease pain and swelling. You may use acetaminophen or ibuprofen to control pain, unless another pain medicine was prescribed. If you have chronic liver or kidney disease, talk with your healthcare provider before using these medicines. Also talk with your provider if you ve had a stomach ulcer or gastrointestinal bleeding. Shoulder joints become stiff if left in a sling for too long. You should start range of motion exercises about 7 to 10 days after the injury. Talk with your provider to find out what type of exercises to do and how soon to start. Follow-up care Follow up with your healthcare provider, or as advised. Any X-rays you had today don t show any broken bones, breaks, or fractures. Sometimes fractures don t show up on the first X-ray. Bruises and sprains can sometimes hurt as much as a fracture. These injuries can take time to heal completely. If your symptoms don t improve or they get worse, talk with your provider. You may need a repeat X-ray or other treatments. When to seek medical advice Call your healthcare provider right away if any of these occur: Shoulder pain or swelling in your arm that gets worse Fingers become cold, blue, numb, or tingly Large amount of bruising of the shoulder or upper arm Fever or chills [phone] [employer]. [address] [place] [address], [place] [address]. All rights reserved. This information is not intended as a substitute for professional medical care. Always follow your healthcare professional's instructions. Additional Information VACCINATE! IT SAVES LIVES! Members of the community who have not yet received the COVID-19 vaccine and would like to receive it can visit one of [facility] vaccine clinics. There are many vaccine clinic locations within the [facility]. For locations and available times, please visit [email or web address] [email or web address] It is important to note that some COVID mobile vaccine clinics are held outdoors and may be canceled in rainy or stormy conditions. To learn more about pediatric vaccinations (ages 5-11), we invite you to visit the [facility] webpage. [email or web address]/pag [email or web address]-Ibhak-[email or web address]-[email or web address]-Oezuvihzl.[email or web address] To learn more about the COVID-19 vaccine, we invite you to visit the CDC website for a list of frequently asked questions. https://www.cdc.gov/coronavirus/-ncov/vaccines/faq.html [facility] Patient Portal Access Instructions: Stay connected with your healthcare team and access your personal medical information anytime with the [facility] Patient Portal. If you would like a full copy of your medical records please contact the [facility] Medical Records Department Monday through Monday between 8a.m. and 4:30p.m. Please follow the directions below to access the portal: 1.Access the email account you provided upon registration to the [facility].2.Look for an invitation email from [facility].3.Open the email and access the invitation link: Accept Invitation to [facility]4.Fill in the required muller to create your account. Sign into [email or web address] with your username and password that you created in the above steps to stay up to date. You can then view a summary of results, a summary of your visits, and the ability to download your summaries to your computer or send the information securely to a physician. Remember that your healthcare information is confidential, so carefully consider who you will allow to register on the [facility] Patient Portal for access to your information. You can also access the [facility] Patient Portal on the [employer]. Simply click on Health Records under Health Data and then click on the [employer] logo. HOW TO SAFELY DISPOSE OF PRESCRIPTION MEDICATIONS Please use one of the following methods to safely dispose of your unused medications. 1.Use a drug disposal kit: the drug disposal pouch allows you to safely discard your old and unused drugs. Ask your nurse to give you one when you are discharged.2.Visit a local take-back location: Many local pharmacies and police departments have programs that collect old and unwanted prescription drugs. Call your local pharmacy or go to http://bit.ly/9X6Pd4h to find one close to you.3.Make use of household items: Use cat litter or old coffee grounds to dispose medications if other options are not available. Mix your drugs with these household products, seal them in an airtight container and throw it into the garbage. Call [facility]: [phone] to be sure your drugs can be disposed of in this way. Some medicines may require a different approach.4.Never flush your medications down the toilet. IF YOU HAVE BEEN PRESCRIBED AN OPIOIDS FOR PAIN If you have been prescribed an opioid (such as hydrocodone, oxycodone or morphine), it is critical to understand the possible side effects and risks of opioid pain medications. Even when taken as directed, opioids can have several side effects including: Tolerance, meaning you might need to take more of a medication for the same pain relief. Nausea, vomiting and/or constipation. Sleepiness, dizziness, dry mouth, confusion, depression or itching. Physical dependence, meaning you have withdrawal symptoms when a medication is stopped ? this can develop within a few days. KNOW YOUR RESPONSIBILITIES It is important to know exactly how much and how often to take the opioid pain medications you are prescribed. Never take opioids in higher amounts or more often than prescribed. Do not combine opioids with alcohol or other drugs that cause drowsiness, such as benzodiazepines, also known as benzos, including diazepam and alprazolam, muscle relaxants or sleep aids. Never sell or share prescription opioids. This is illegal. Store opioids in a secure place and out of reach of others (including children, family, friends and visitors). The last page(s) of this document has been signed and retained as a CHART COPY Signatures Patient Education Materials Shoulder Sprain Medication Leaflets My discharge plan and instructions have been reviewed and explained to me and IGIOVANNY TATIANA understand my current condition and have read and understand these discharge instructions. I have received a written copy of the plan/instructions. If I have questions, I am aware that I should contact my doctor. 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 -- Hypertrophic cardiomyopathy is a condition that causes the muscle in the heart to get too bulky. When this happens, the heart can have trouble pumping blood as well as it should. This can lead to symptoms, such as trouble breathing, chest pain, and fainting. Hypertrophic cardiomyopathy is caused by a genetic problem that runs in families. What are the symptoms of hypertrophic cardiomyopathy? -- Most people with hypertrophic cardiomyopathy have no symptoms. When symptoms do occur, they can start during childhood, the teenage years, or adulthood. Symptoms can include: ?Trouble breathing, especially during exercise ?Trouble breathing that gets worse when you lie down and gets better if you sit up or stand ?Chest pain, which sometimes gets worse with activity ?Fainting or feeling like you might faint ?Feeling as though your heart is beating very fast or skipping beats ?Swelling in the feet, ankles, or legs Is there a test for cardiomyopathy? -- Yes. If your doctor or nurse suspects you have cardiomyopathy, he or she will probably order an electrocardiogram (also called an ECG or EKG ). This test measures the electrical activity in your heart. It can show if your heart beats in a normal pattern and rhythm. Your doctor might also order an echocardiogram (or echo for short). An echo uses sound waves to create an image of the heart. This test allows doctors to measure the thickness of the sawyer of the heart, measure the size of the spaces inside the heart -- called chambers -- and see how the heart pumps. Depending on your situation, you might also need other tests. Since hypertrophic cardiomyopathy runs in families, your doctor or nurse might suggest testing your family members for the disorder, too. What problems can hypertrophic cardiomyopathy cause? -- In many cases the condition causes no problems. But in some cases it can lead to: ?Heart failure, a condition in which the heart does not pump as well as it should ?Heart rhythm disorders ?Heart block, a problem that keeps electrical signals from moving through the heart as they should ?Stroke ?Infection of a heart valve ? How is hypertrophic cardiomyopathy treated? -- Many people with hypertrophic cardiomyopathy do not need treatment. Those who do need treatment can get different kinds depending on what symptoms they have and how severe their condition is. Treatments can include: ?Medicines to relieve chest pain or trouble breathing ?Medicines to control the heart s rhythm ?Surgery to implant a device called an implantable cardioverter-defibrillator, or ICD. (This device keeps the heart beating normally.) ?Surgery or other treatments to remove parts of the heart muscle. (This is done only when medicines do not work.) What if I want to get ? -- Talk to your doctor before you start trying to get . Most women with hypertrophic cardiomyopathy are able to have normal pregnancies. But some need to change their medicines before they start trying to have a baby. Is there anything I can do on my own to protect my heart and my health? -- Yes. You should be careful to always drink enough water. People with hypertrophic cardiomyopathy sometimes have problems, such as fainting, when they do not get enough fluids. On the other hand, some people with hypertrophic cardiomyopathy have to be careful if they have too much salt and water. Ask your doctor about how much salt is OK to have in your diet. It s also important that you ask your doctor what types of physical activity are safe for you. In many cases, people with hypertrophic cardiomyopathy need to avoid some kinds of activity. All topics are updated as new evidence becomes available and our peer review process is complete. This topic retrieved from [employer] on: Nov 26, 2015. The content on the [employer] website is not intended nor recommended as a substitute for medical advice, diagnosis, or treatment. Always seek the advice of your own physician or other qualified health career orientation teacher regarding any medical questions or conditions. The use of [employer] content is governed by the [employer] Terms of Use. 2016 [employer]. All rights reserved. Topic 64588 Version 6.0 documented in this encounter [facility] 03-25-2024 History of Present illness Narrative PRIMARY CARE PHYSICIAN: Quintin Montiel [address] [address] REFERRING PHYSICIAN: SELF CHIEF COMPLAINT: Patient presents with: CARD New Patient Consult: POPULATION GENETICIST REF FOR PRE OP AND HEART MURMUR HPI: Mrs Lewis was kindly referred to me by Dr Robertson. From a cardiac standpoint, she has a family history of hypertrophic cardiomyopathy. He mother was diagnosed with the same at 45, and needed myectomy. She herself has not been diagnosed with hypertrophic cardiomyopathy. She has had two normal pregnancies, and both her kids are healthy ( a girl 8 yrs old, and a boy 6 yrs old). She uses electronic cigarettes ( twice a week), but denies alcohol, recreational drugs. 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 Clinically, she denies feeling dyspnea, but does admit to intermittent exertional chest pain, lightheadedness, dizziness, or loss of consciousness. She has never had resuscitated sudden cardiac either. PAST MEDICAL HISTORY Diagnosis Date Chlamydia infection 07/15/2014 Cholelithiasis PMH - PAST MEDICAL HISTORY OF 12/18/2003 normal color vision PMH - PAST MEDICAL HISTORY OF age 4 fracture right elbow PMH - PAST MEDICAL HISTORY OF age 4 fracture right wrist PMH - PAST MEDICAL HISTORY OF bronchial infection Trichomonal infection 03/22/2015 PAST SURGICAL HISTORY Procedure Laterality Date ADENOIDECTOMY PRIMARY <AGE 11 PAST SURGICAL HISTORY OF root canal SOCIAL HISTORY Social History Tobacco Use Smoking status: Never Smokeless tobacco: Never Tobacco comments: vapes without nicotine Vaping Use Vaping Use: current everyday user Substances: Flavoring Devices: [employer] Substance Use Topics Alcohol use: No Drug use: No FAMILY HISTORY Problem Relation Age of Onset Diabetes Maternal Grandmother other (sleep apnea) Maternal Grandmother Asthma Father Heart Mother hypertrophic cardiomyopathy ALLERGIES: ALLERGIES No Known Allergies MEDICATIONS: sertraline (ZOLOFT) 50 mg tablet Take 50 mg by mouth once daily. pantoprazole DR (PROTONIX) 40 mg tablet Take 1 tablet by mouth once daily. ferrous sulfate (IRON) 325 mg (65 mg iron) tablet Take 325 mg by mouth daily with breakfast. trazodone HCl (TRAZODONE ORAL) Take by mouth. escitalopram oxalate (LEXAPRO) 10 mg tablet Take 10 mg by mouth once daily. albuterol HFA (VENTOLIN HFA) 90 mcg/actuation inhaler Inhale 2 Puffs as instructed every 4 hours as needed for wheezing/shortness of breath. REVIEW OF SYSTEMS: GENERAL: Negative for:Weight loss and Weight gain HEENT: Negative for:Nosebleeds RESPIRATORY: Negative for:Shortness of breath GASTROINTESTINAL: Negative for:Blood in stool MUSCULOSKELETAL: Negtive for: Muscle or joint pain, stiffness, Joint swelling SKIN: No rash HEMATOLOGICAL/LYMPHATIC: Negative for: Easy bruising and Easy bleeding CARDIOVASCULAR: As stated in HPI. 10 system review negative except as stated in HPI I have confirmed and edited as necessary, the Past, Family, Social History and Review Of Systems, obtained by my office staff. PHYSICAL EXAMINATION: BP 111/77 Pulse 103 Resp 18 Ht 5' 10 (1.78m) Wt 279 lb (126.6kg) SpO2 98% LMP 11/25/2020 BMI 40.03 kg/(m^2). General: Well appearing, in no acute distress, speaking in complete sentences., Well appearing. Psych: Normal Affect Eyes: No subconjunctival hemorrhage Skin: No rash, bruising Oropharynx: Mucous membranes normal Neck: no jugular venous distention, no carotid bruits. Lymph: No cervical lymphadenopathy Lungs: Clear to auscultation bilaterally, no wheezing or rhonchi. Heart: S1, S2 normal, no murmur even with Valsalva. Extremities: No peripheral edema Neuro: Grossly nonfocal ASSESSMENT/PLAN: 1. Class 3 severe obesity due to excess calories with body mass index (BMI) of 40.0 to 44.9 in adult, unspecified whether serious comorbidity present (HCC) - ICD9: 278.01, V85.41, ICD10: E66.01, Z68.41 (primary diagnosis) Stable - Behavioral intervention 2. Family history of hypertrophic cardiomyopathy - ICD9: V17.49, ICD10: Z82.49 As described above, her mother was diagnosed with hypertrophic obstructive cardiomyopathy, and needed myectomy. The patient could not tell me to relay details about her mother's condition, and is not sure if she had genetic testing. The patient herself has never had genetic testing done before. I will start her workup with a 2D echocardiogram. Any further recommendations will depend on the results of the test. I may recommend a cardiac MRI/genetic testing down the line. At present, she is not on beta-benjy therapy. Her clinical examination, and her EKG did not support a diagnosis of hypertrophic obstructive cardiomyopathy. I will hold off on starting beta-benjy therapy for now. 3. Preoperative clearance - ICD9: V72.84, ICD10: Z01.818 She is interested in having a cholecystectomy in the future. Given her history of chest pain, she will need a stress echocardiogram. 4. Gall stones - ICD9: 574.20, ICD10: K80.20 Cholecystectomy when stable from the cardiac standpoint. 5. Chest pain - ICD 10: R07.9 She uses electronic cigarettes, and does have cardiac risk factors of obesity. I will start her workup with an exercise stress echocardiogram. Any further recommendations will depend on the results of the same. Encourage electronic cigarette use cessation. Orestes Heath MD The above note was partially created using a dictation recognition software. A reasonable attempt has been made to correct any errors. documented in this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 Patient Records regulations: The Federal rules restrict any use of the information to criminally investigate or prosecute any alcohol or drug abuse patient.[facility]In the event this information is protected by the Federal Confidentiality of Alcohol and Drug Abuse Patient Records regulations: The Federal rules restrict any use of the information to criminally investigate or prosecute any alcohol or drug abuse patient.[facility] HospitalIn the event this information is protected by the Federal Confidentiality of Alcohol and Drug Abuse Patient Records regulations: The Federal rules restrict any use of the information to criminally investigate or prosecute any alcohol or drug abuse patient.[facility] HospitalIn the event this information is protected by the Federal Confidentiality of Alcohol and Drug Abuse Patient Records regulations: The Federal rules restrict any use of the information to criminally investigate or prosecute any alcohol or drug abuse patient.[facility] HospitalIn the event this information is protected by the Federal Confidentiality of Alcohol and Drug Abuse Patient Records regulations: The Federal rules restrict any use of the information to criminally investigate or prosecute any alcohol or drug abuse patient.[facility] HospitalIn the event this information is protected by the Federal Confidentiality of Alcohol and Drug Abuse Patient Records regulations: The Federal rules restrict any use of the information to criminally investigate or prosecute any alcohol or drug abuse patient.[facility] HospitalIn the event this information is protected by the Federal Confidentiality of Alcohol and Drug Abuse Patient Records regulations: The Federal rules restrict any use of the information to criminally investigate or prosecute any alcohol or drug abuse patient.[facility] HospitalIn the event this information is protected by the Federal Confidentiality of Alcohol and Drug Abuse Patient Records regulations: The Federal rules restrict any use of the information to criminally investigate or prosecute any alcohol or drug abuse patient.[facility] Care Teams (unrecognized sec tion and content) [employer] Inspector Relationship Specialty Start Date End Date Zulema Sorto DO [address] [place] [id number] PCP - General Family Medicine 03/27/23 Mineral Resources Inspector Relationship Specialty Start Date End Date Zulema Dunlap DO [address] [address] PCP - General Family Medicine 03/27/23 Mineral Resources Inspector Relationship Specialty Start Date End Date Zulema Dunlap DO [address] [address] PCP - General Family Medicine 03/27/23 Mineral Resources Inspector Relationship Specialty Start Date End Date Quintin Montiel DO [address] [address] PCP - General Family Medicine 05/12/23 Mineral Resources Inspector Relationship Specialty Start Date End Date Quintin Montiel DO [address] [address] PCP - General Family Medicine 05/12/23 Mineral Resources Inspector Relationship Specialty Start Date End Date Quintin Montiel DO [address] [address] PCP - General Family Medicine 05/12/23 Mineral Resources Inspector Relationship Specialty Start Date End Date Quintin Montiel DO [address] [address] PCP - General Family Medicine 05/12/23 Mineral Resources Inspector Relationship Specialty Start Date End Date Zulema Dunlap DO [address] [address] PCP - General Family Medicine 03/27/23 Mineral Resources Inspector Relationship Specialty Start Date End Date Zulema Dunlap DO [address] [address] PCP - General Family Medicine 03/27/23 Mineral Resources Inspector Relationship Specialty Start Date End Date Zulema Dunlap DO [address] [place] [address] PCP - General Family Medicine 03/27/23 Mineral Resources Inspector Relationship Specialty Start Date End Date Quintin Montiel DO [address] [place] [address] PCP - General Family Medicine 05/12/23 Mineral Resources Inspector Relationship Specialty Start Date End Date Quintin Montiel, DO [address] [place] [address] PCP - General Family Medicine 05/12/23 Mineral Resources Inspector Relationship Specialty Start Date End Date Quintin Montiel, DO [address] [place] [address] PCP - General Family Medicine 05/12/23 Mineral Resources Inspector Relationship Specialty Start Date End Date Nikki ZulemaDO 55 [facility] [address] [place] [address] PCP - General Family Medicine 03/27/23 Mineral Resources Inspector Relationship Specialty Start Date End Date Quintin Montiel, DO [address] [place] [address] PCP - General Family Medicine 05/12/23 Mineral Resources Inspector Relationship Specialty Start Date End Date Ediarlene Quintin, DO [address] [place] [address] PCP - General Family Medicine 05/12/23 Mineral Resources Inspector Relationship Specialty Start Date End Date Ediarlene Quintin, DO [address] [place] [address] PCP - General Family Medicine 08/20/24 Orestes Heath MD [address] [place] [phone] Cardiology 08/20/24 Mineral Resources Inspector Relationship Specialty Start Date End Date Quintin Montiel DO [address] [place] [address] PCP - General Family Medicine 08/20/24 Orestes Heath MD [address] [place] [phone] Cardiology 08/20/24 Mineral Resources Inspector Relationship Specialty Start Date End Date Quintin Montiel DO [address] [address] PCP - General Family Medicine 08/20/24 Orestes Heath MD [address] [place] [phone] Cardiology 08/20/24 Mineral Resources Inspector Relationship Specialty Start Date End Date Quintin Montiel DO [address] [place] [address] PCP - General Family Medicine 08/20/24 Orestes Heath MD [address] [place] [phone] (Fax) Cardiology 08/20/24 Scheduled Active and Recently Administ ered Medications (unrecognized section and content) Medication Order 03/27/2024 03/28/2024 03/29/2024 ketorolac (Toradol) injection 30 mg (COMPLETED) 30 mg, IntraVENous, Once, On Mon03/29/24 at 1905, For 1 dose 2000 (Given - Provid er: Zeina Cooper RN) metroNIDAZOLE (Flagyl) tablet 500 mg (COMPLETED) 500 mg, Oral, Once, On Mon03/29/24 at 2135, For 1 dose, Suspected Indication (Select all that apply): Urinary Tract Infection 2145 (Given - Provid er: Zeina Cooper RN) FOR RECORDS PERTAINING TO PATIENTS WHO ARE OR HAVE BEEN ENROLLED IN A CHEMICAL DEPENDENCY/SUBSTANCEABUSE PROGRAM, SOME INFORMATION MAY BE OMITTED. This clinical summary was aggregated from multiple sources. Caution should be exercised in using it in the provision of clinical care. This summary normalizes information from multiple sources, and as a consequence, information in this document may materially change the coding, format and clinical context of patient data. In addition, data may be omitted in some cases. CLINICAL DECISIONS SHOULD BE BASED ON THE PRIMARY CLINICAL RECORDS. [employer] provides no warranty or guarantee of the accuracy or completeness of information in this document.
[2024-11-29 00:49] LABS: Hematocrit 35.8 % (37-47); Hemoglobin 11.3 g/dL (12.0-15.0); Immature Granulocytes Count 0.010 X10^3/uL (0.0-0.0); Mean Corp Hgb Conc 31.6 g/dL (32-36); Mean Corpuscular Volume 82.1 fL (81-99); Mean Platelet Vol. 10.8 fl (6.2-12.0); NRBC Flagged by Analyzer 0 % (0-5); Platelet Count 308 K/mm3 (150-450); RBC Distribution Width CV 14.8 % (11.6-14.6); RBC Distribution Width SD 44.4 fl (35.1-43.9); Red Blood Count 4.36 M/mm3 (4.2-5.4); White Blood Count 7.9 K/mm3 (4.4-11.0)
[2024-11-29] MEDS: 0.9% Normal Saline (1000mL) 1,000 ML 999 ML IV (00:57)
[2024-11-29 01:10] LABS: Internal QC Validated? YES +Cl - CLEAR BKGD; Pregnancy, Serum, hCG Quali. NEGATIVE Negative; Record Kit Lot#, Serum Preg. 0000947241
--- NOTE | 2024-11-29 01:17 | CT_ITS ---
PROCEDURE: ABDOMEN/PELVIS W IV CONT ONLY 11/29/2024 REASON FOR EXAM: RUQ PAIN TECHNIQUE: ABDOMEN/PELVIS W IV CONT ONLY Coronal and Sagittal reconstruction series were provided. CONTRAST:VOLUME: mL One or more dose reduction techniques were used (e.g., Automated exposure control, adjustment of the mA and/or kV according to patient size, use of iterative reconstruction technique. RADIATION DOSE SUMMARY: CTDlvol: mGy DLP: mGycm COMPARISON: none FINDINGS: Average sized liver showing homogenous parenchymal attenuation. No dilated intra or extra-hepatic biliary tracts. Gall bladder cholesterol stones and mild wall thickening with no related collections. Normal appearance of the pancreas with clear surrounding fat planes. The spleen, adrenal glands, aorta and IVC are unremarkable. Both kidneys are of average size and showing smooth outline with preserved parenchymal thickness. No renal calculi. No hydronephrosis. Distension of the urinary bladder showing mild wall thickening with no obvious masses. No obvious masses related to the pelvic viscera. Mild free pelvic fluid, likely physiological. The appendix appears unremarkable. No right iliac inflammatory changes. Mild gastric wall thickening, possibly gastritis. Advise clinical correlation. The examined ascending colon, the transverse colon, the descending colon & small bowel loops are unremarkable. The stomach is unremarkable. No ascites or free air. No obvious pathologically enlarged lymph nodes. Scanned osseous structures show no osseous destruction. Scanned lung bases show no obvious abnormalities. CT/Abdomen/Pelvis W IV Cont ONLY IMPRESSION: Gall bladder cholesterol stones and mild wall thickening with no related collec tions. Mild gastric wall thickening, possibly gastritis. Advise clinical correlation. Urinary bladder wall thickening, possibly cystitis. Advise sonography, clinical and laboratory correlation. Reading [facility] [address]
[2024-11-29 01:30] LABS: Lipase 40 U/L (13-75)
[2024-11-29 01:32] LABS: AST(SGOT) 18 U/L (<=31); Alanine Aminotransfer ALT/SGPT 12 U/L (<=34); Albumin, Serum 3.7 g/dL (3.5-5.0); Alkaline Phosphatase 76 U/L (35-104); Anion Gap 11 (5-15); BUN 9 mg/dL (4-19); BUN/Creat Ratio 8.2 RATIO (10-20); Bilirubin, Direct < 0.08 mg/dL (0.00-0.30); Calcium,Total 8.7 mg/dL (7.6-11.0); Carbon Dioxide 21.5 mmol/L (21.0-32.0); Chloride 107 mmol/L (98-108); Estimated Creatinine Clearance 114.29 ml/min (50-250); Globulin 3.0 g/dL (2.2-4.2); Glucose 93 mg/dL (70-99); Potassium 3.7 mmol/L (3.3-5.1)
[2024-11-29 02:06] VITALS: BP 118/84; PULSE 64; RESP 16; O2SAT 98
--- NOTE | 2024-11-29 02:47 | EDS_ITS ---
HPI History of Present Illness Chief Complaint: Abd Pain Informant: patient Narrative Narrative: Patient is a 29-year-old female with past ministry of anxiety and depression. She was seen roughly a year ago and had an ultrasound diagnosing her with gallstones. She states that she never followed up with general surgery to discuss need for cholecystectomy. She states that she has been doing well but this evening began with pain and nausea. She states that the pain is located in the right upper quadrant and feels similar in nature to her last gallbladder flare. She denies any fevers or chills trauma or known sick contacts. However with concern this could be an infection or irritation to her gallbladder she presents for evaluation [facility] Medical History (Updated 12/03/24 @ 05:[address] Shailesh Merritt, DO) Gallstone Wears contact lenses Depression Anxiety Easy bruising Back pain Gastric reflux Vapes nicotine containing substance History of stress test Anemia Home Medications ?Medication ?Instructions ?Recorded ?Last Taken ?Type quetiapine 25 mg tablet 25 mg PO QHS 11/27/23 Unknow n History sertraline 100 mg tablet 150 mg PO DAILY 11/27/23 Unk nown History ondansetron 4 mg disintegrating 4 mg PO TID PRN nausea and 11/29/24 Unknown Rx tablet vomiting #21 tabs oxycodone-acetaminophen 5 mg-325 1 tab PO Q6H PRN pain 3 days #12 11/29/24 Unknown Rx mg tablet (Percocet) tabs Allergy/AdvReac Type Severity Reaction Status Date / Time No Known Allergies Allergy Verified 11/29/24 00:06 Family History Grandmother Diabetes Mother Heart disease Surgical History H/O adenoidectomy Social History Smoking Status: Current every day smoker tobacco type: e-cigarettes ROS ROS ED Constitutional Constitutional ED: Denies chills or fever(s) Eyes Eyes: Denies change in vision ENT ENT ED: Denies sore throat Cardiovascular Cardiovascular: Denies chest pain Respiratory/Chest Respiratory/Chest: Denies cough or dyspnea Gastrointestinal Gastrointestinal: Reports abdominal pain and nausea; Denies constipation, diarrhea or vomiting Genitourinary Genitourinary ED: Denies dysuria Musculoskeletal Musculoskeletal: Reports back pain; Denies myalgias Integumentary Denies rash Neurologic Neurologic: Denies headache(s) Hematologic/Lymphatic Hematologic/Lymphatic: Denies easy bleeding or easy bruising EXAM Physical Exam Const Vital Signs: 11/29/24 00:06 Temperature 97.8 F Temperature Source Oral Pulse Rate 65 Respiratory Rate 18 Blood Pressure 125/91 H Blood Pressure Mean 102 Pulse Ox 100 Positive well nourished, well developed and obese General Appearance ED: well developed Nutritional Appearance: obese HEENT Reports moist mucous membranes HEENT Narrative: Normocephalic atraumatic No tongue or lip swelling no oral lesions no airway edema or compromise Eyes PERRL and EOMs intact bilaterally General Eye ED: Negative for scleral icterus Neck supple Resp normal respiratory effort and clear to auscultation bilaterally Cardio regular rate and regular rhythm Rate: other Other Details: Radial and carotid pulses are equal and symmetric GI non-distended and no masses GI Narrative: Abdomen is soft and nondistended with normal active bowel sounds. There is pain on palpation in the midepigastric and right upper quadrant region. There is slight guarding in the right upper quadrant region. Overall negative Porter sign. No peritoneal signs. No rigidity or pulsatile mass. Auscultation: normoactive bowel sounds Palpation: soft Back/Spine no CVA tenderness Extremity normal to inspection Neuro oriented x3, CN's II-XII intact bilaterally and no sensory deficits noted Sensorium / Orientation: alert Motor Exam: strength 5/5 throughout Psych mental status grossly normal Skin no rashes or lesions noted General Skin Exam: Negative for jaundice MDM MDM MDM Narrative Medical decision making narrative: Patient presented to ER with stable vitals and a soft nonsurgical abdomen. Pain was greatest in the midepigastric and right upper quadrant region and there is concerned that she could have biliary colic versus acute cholecystitis versus pancreatitis or even complication. Therefore basic labs were obtained. Chart review was performed and her ultrasound from previous year does confirm gallstones without signs of acute cholecystitis. In order to rule out acute cholecystitis as the cause of her pain this evening I did elect to perform a CT scan with IV contrast on top of the lab. Labs revealed normal liver enzymes as well as normal lipase going against acute pancreatitis or acute cholecystitis. Patient is also afebrile and does not have leukocytosis or left shift. CT scan of the abdomen and pelvis was obtained with IV contrast and reveals once again gallstones without signs of secondary infection. On reevaluation the patient is resting comfortably she reports improvement of her abdominal discomfort with the provided medications and her abdomen remains soft and nonsurgical. Therefore I do feel patient symptoms this evening are related to biliary colic but with resolution of pain and overall negative workup there is no need for an emergent general surgery consultation or admission and patient is otherwise safe for discharge with outpatient follow-up History & Record Review Discussion w/independent historian: Patient Lab Data Attestation: I reviewed the patient's lab results. Labs: Laboratory Results - last 24 hr 11/29/24 00:12 WBC 7.9 RBC 4.36 Hgb 11.3 L Hct 35.8 L MCV 82.1 MCH 25.9 L MCHC 31.6 L RDW Std Deviation 44.4 H RDW Coeff of Marvin 14.8 H Plt Count 308 MPV 10.8 Immature Gran % (Auto) 0.100 Neut % (Auto) 56.2 Lymph % (Auto) 31.7 [place] % (Auto) 8.6 Eos % (Auto) 2.9 Baso % (Auto) 0.5 Absolute Neuts (auto) 4.4 Absolute Lymphs (auto) 2.50 Nucleated RBC % 0 Sodium 139 Potassium 3.7 Chloride 107 Carbon Dioxide 21.5 Anion Gap 11 BUN 9 Creatinine 1.05 Estim Creat Clear Calc 114.29 Est GFR (MDRD) Non-Af 73 BUN/Creatinine Ratio 8.2 L Glucose 93 Calcium 8.7 Total Bilirubin 0.17 Direct Bilirubin < 0.08 AST 18 ALT 12 Alkaline Phosphatase 76 Total Protein 6.6 Albumin 3.7 Globulin 3.0 Lipase 40 Serum , Qual NEGATIVE Radiography Diagnostic Testing: Clinical Impression(s) from Imaging Studies Abdomen/Pelvis CT 11/29/24 01:17 IMPRESSION: Gall bladder cholesterol stones and mild wall thickening with no related c ollections. Mild gastric wall thickening, possibly gastritis. Advise clinical correlation. Urinary bladder wall thickening, possibly cystitis. Advise sonography, clinical and laboratory correlation. Reading Location: [place] [address] Discharge Plan Triage Chief Complaint: Abd Pain ED Provider: Shailesh Merritt Dx/Rx/DC Orders Clinical Impression: Biliary colic, Anxiety and depression Instructions: Treating Gallstones, Gallstones Dc Prescriptions: New ondansetron 4 mg tablet,disintegrating 4 mg PO TID PRN (Reason: nausea and vomiting) Qty: 21 0RF oxycodone-acetaminophen [Percocet] 5-325 mg tablet 1 tab PO Q6H PRN (Reason: pain) 3 Days Qty: 12 0RF No Action quetiapine 25 mg tablet 25 mg PO QHS sertraline 100 mg tablet 150 mg PO DAILY Stand Alone Forms: ED Work / School Excuse Primary Care Provider: Care Physician,No Primary Referrals: Ion Easley MD [Med Staff - Active Staff] - Care Physician,No Primary [Primary Care Provider] - Activity Restrictions/Additional Instructions: Please eat smaller portions and a bland diet to help prevent recurrent pain from your gallbladder. Follow-up with general surgery as your gallbladder most likely be removed. Take the prescribed medication as directed if you have return of pain and return to the ER for any further concerns Print Language: Indonesian Disposition Disposition: Home, Self Care Discharge Date/Time: 11/29/24 02:54
[2024-11-29 02:54] VITALS: BP 116/72; PULSE 68; RESP 16; TEMP 36.6; O2SAT 99
== END 2024-11-29 02:54 | disposition home or self-care (01) ==
PROVIDERS: Emergency Provider Emergency Medicine; Visit Provider Emergency Medicine
DX: K80.70 Calculus of gallbladder and bile duct without cholecystitis without obstruction (principal); F41.9 Anxiety disorder, unspecified; F32.A Depression, unspecified; E66.9 Obesity, unspecified; F17.290 Nicotine dependence, other tobacco product, uncomplicated
CPT/HCPCS: 74177; 80048; 80076; 83690; 84703; 85025; 96361; 96374; 96375; 99282; Q9967; A4216; J2405

== ENCOUNTER 2024-12-16 11:56 | Emergency (ER) | payer MEDICAID, SELFPAY ==
[2024-12-16 11:57] VITALS: BP 124/86; PULSE 98; RESP 18; TEMP 36.8; O2SAT 99; BMI 36.3
--- NOTE | 2024-12-16 13:23 | US_ITS ---
PROCEDURE: GALLBLADDER N/A REASON FOR EXAM: PAIN COMPARISON: Prior CT scan of the abdomen and pelvis dated November 29, 2024. FINDINGS: Liver: Hepatomegaly. The liver measures 18.2 cm. Gallbladder: Multiple gallstones. Positive sonographic Porter's sign. Gallbladder wall slightly thickened measuring 4 mm. Common bile duct: Normal measuring 5 mm. . Pancreas: Normal Other: Visualized portions of the right kidney are unremarkable. No right upper quadrant ascites. US/Gallbladder IMPRESSION: Multiple gallstones. Mildly thickened gallbladder wall. Positive sonographic Porter's sign. Hepatomegaly. Reading Location: [id number]
--- NOTE | 2024-12-16 13:24 | ED.VIS.GI ---
HPI HPI - GI History of Present Illness Chief Complaint: Abd Pain Informant: patient Narrative Narrative: Patient is a 29 year old female with history of biliary colic/gallstones, anxiety and depression presenting with worsening right upper quadrant abdominal pain. States started on (4 days ago) but is significantly worsening. She is able drink fluids not been able to eat anything for the past 2 days because of pain. Denies associated nausea or vomiting. Denies any change in bowel movements. States she has had back pain this bad. Denies radiation of pain. Was concerning for s/p work tonight. Denies any fever or chills. Was supposed to see general surgery for follow-up about this on 12/06 but did not relate she had an appointment so she missed it. Has been seen in the ER multiple times over the past year for biliary colic and cholelithiasis. Denies any urinary symptoms. Denies any concern for . PFSH [facility] Medical History Gallstone Wears contact lenses Depression Anxiety Easy bruising Back pain Gastric reflux Vapes nicotine containing substance History of stress test Anemia Home Medications ?Medication ?Instructions ?Recorded ?Last Taken ?Type quetiapine 25 mg tablet 25 mg PO QHS 11/27/23 Unknown History sertraline 100 mg tablet 150 mg PO DAILY 11/27/23 Unknown History ondansetron 4 mg disintegrating 4 mg PO TID PRN nausea and 11/29/24 Unknown Rx tablet vomiting #21 tabs oxycodone-acetaminophen 5 mg-325 1 tab PO Q6H PRN pain 3 days #12 11/29/24 Unknown Rx mg tablet (Percocet) tabs dicyclomine 20 mg tablet 40 mg (2 x 20 mg) PO TID PRN 12/16/24 Unknown Rx abdominal pain #20 tabs Allergy/AdvReac Type Severity Reaction Status Date / Time No Known Allergies Allergy Verified 12/16/24 11:59 Family History Grandmother Diabetes Mother Heart disease Surgical History H/O adenoidectomy Social History Smoking Status: Current every day smoker tobacco type: e-cigarettes ROS ROS ED Constitutional Constitutional ED: Denies chills or fever(s) Gastrointestinal Gastrointestinal: Reports abdominal pain; Denies diarrhea, nausea or vomiting Genitourinary Genitourinary ED: Denies dysuria or hematuria Musculoskeletal Musculoskeletal: Denies arthralgias or myalgias Integumentary Denies rash Neurologic Neurologic: Denies weakness Hematologic/Lymphatic Hematologic/Lymphatic: Denies easy bleeding or easy bruising EXAM Physical Exam Const Vital Signs: 12/16/24 11:57 12/16/24 13:56 12/16/24 15:00 Temperature 98.2 F Temperature Source Oral Pulse Rate 98 90 92 Respiratory Rate 18 16 16 Blood Pressure 124/86 H 130/79 H 128/81 H Blood Pressure Mean 98 96 96 Pulse Ox 99 99 99 Oxygen Delivery Method Room Air Positive well nourished and well developed General Appearance ED: well developed and NAD HEENT Reports moist mucous membranes Neck supple Resp normal respiratory effort and clear to auscultation bilaterally Cardio regular rate and regular rhythm GI Auscultation: normoactive bowel sounds Palpation: soft and tender RUQ and Porter's sign; Negative for guarding, rigid or rebound tenderness present Back/Spine no CVA tenderness Extremity full ROM General Extremety ED: Negative for edema General Extremity: Negative for edema Neuro Sensorium / Orientation: alert Motor Exam: Negative for general weakness Psych mental status grossly normal and thought process normal Skin no wounds General Skin Exam: Negative for jaundice MDM MDM MDM Narrative Medical decision making narrative: Patient via for ongoing epigastric/right upper quadrant abdominal pain. Has a prolonged history of biliary colic and renal colic. Is able to drink fluids but food bothers her. Denies any fevers. Differential includes biliary colic, choledocholithiasis, acute cholecystitis, pancreatitis and electrolyte derangement. Patient given Toradol for pain control and IV fluids in the emergency room. Workup including CBC, CMP and urinalysis as well as urine is largely negative. No leukocytosis present. No transaminitis present. Right upper quadrant ultrasound shows multiple gallstones with a mildly thickened gallbladder wall but no pericholecystic fluid. Gallbladder wall is 4 mm. Patient appears mildly improved with Toradol. Case discussed with Dr. Easley. He recommend starting the patient Bentyl and states that he she would be a good elective robotic candidate. Patient is comfortable's plan of care. States that she has been tolerating liquids fine. She is not have any findings in her labs consistent with acute malnutrition or MALIK. Given return precautions. Discharged home with a note states she can return to work tonight. Lab Data Attestation: I reviewed the patient's lab results. Labs: Laboratory Results - last 24 hr 12/16/24 13:38 WBC 6.8 RBC 4.36 Hgb 11.2 L Hct 35.9 L MCV 82.3 MCH 25.7 L MCHC 31.2 L RDW Std Deviation 43.8 RDW Coeff of Marvin 14.6 Plt Count 279 MPV 11.1 Immature Gran % (Auto) 0.300 Neut % (Auto) 65.2 Lymph % (Auto) 24.6 [place]oun % (Auto) 7.3 Eos % (Auto) 2.0 Baso % (Auto) 0.6 Absolute Neuts (auto) 4.5 Absolute Lymphs (auto) 1.68 Nucleated RBC % 0 Sodium 138 Potassium 4.2 Chloride 107 Carbon Dioxide 22.9 Anion Gap 9 BUN 9 Creatinine 0.94 Estim Creat Clear Calc 127.64 Est GFR (MDRD) Non-Af 84 BUN/Creatinine Ratio 9.6 L Glucose 86 Calcium 9.0 Total Bilirubin 0.24 Direct Bilirubin 0.11 AST 22 ALT 27 Alkaline Phosphatase 81 Total Protein 6.8 Albumin 3.8 Globulin 2.9 Lipase 38 Urine Color Yellow Urine Clarity Clear Urine pH 7.0 Ur Specific Milton 1.010 Urine Protein Negative Urine Glucose (UA) Normal Urine Ketones Negative Urine Occult Blood Negative Urine Nitrite Negative Urine Bilirubin Negative Urine Urobilinogen Normal Ur Leukocyte Esterase Negative Urine RBC 0 SEEN Urine WBC 0 SEEN Ur Squamous Epith Cells 0-5 SEEN Urine Bacteria RARE Urine Mucus 0 SEEN Urine Test Negative Radiography Diagnostic Testing: Clinical Impression(s) from Imaging Studies Gallbladder Ultrasound 12/16/24 13:23 IMPRESSION: Multiple gallstones. Mildly thickened gallbladder wall. Positive sonographic Porter's sign. Hepatomegaly. Reading Location: [facility] Discharge Plan Triage Chief Complaint: Abd Pain ED Provider: Alison Dodson Dx/Rx/DC Orders Clinical Impression: Biliary colic, Abdominal pain, RUQ Instructions: ED Gallstones with Biliary Colic Prescriptions: New dicyclomine 20 mg tablet 40 mg PO TID PRN (Reason: abdominal pain) Qty: 20 0RF No Action quetiapine 25 mg tablet 25 mg PO QHS sertraline 100 mg tablet 150 mg PO DAILY ondansetron 4 mg tablet,disintegrating 4 mg PO TID PRN (Reason: nausea and vomiting) Qty: 21 0RF oxycodone-acetaminophen [Percocet] 5-325 mg tablet 1 tab PO Q6H PRN (Reason: pain) 3 Days Qty: 12 0RF Stand Alone Forms: ED Work / School Excuse Primary Care Provider: Care Physician,No Primary Referrals: Ion Easley MD [Med Staff - Active Staff] - Care Physician,No Primary [Primary Care Provider] - Activity Restrictions/Additional Instructions: Please call general surgery office tomorrow to schedule outpatient follow-up. You may turn to work tonight. If you develop worsening pain again, fever or yellow discoloration to your eyes please immediately return to the emergency room. Print Language: Citizen [place] Disposition Disposition: Home, Self Care
[2024-12-16 13:48] LABS: Mucous, Urine 0 SEEN /hpf (<or=2+); Red Blood Cells-Urine 0 SEEN /hpf (0-5)
[2024-12-16 13:50] LABS: Hematocrit 35.9 % (37-47); Hemoglobin 11.2 g/dL (12.0-15.0); Immature Granulocytes Count 0.020 X10^3/uL (0.0-0.0); Mean Corp Hgb Conc 31.2 g/dL (32-36); Mean Corpuscular Volume 82.3 fL (81-99); Mean Platelet Vol. 11.1 fl (6.2-12.0); NRBC Flagged by Analyzer 0 % (0-5); Platelet Count 279 K/mm3 (150-450); RBC Distribution Width CV 14.6 % (11.6-14.6); RBC Distribution Width SD 43.8 fl (35.1-43.9); Red Blood Count 4.36 M/mm3 (4.2-5.4); White Blood Count 6.8 K/mm3 (4.4-11.0)
[2024-12-16 13:56] VITALS: BP 130/79; PULSE 90; RESP 16; O2SAT 99
[2024-12-16 13:56] LABS: Color, Urine Yellow (Yellow); Glucose, Dipstick Normal (Normal); Ketone-Dipstick Negative (Negative); Leukocyte Esterase-Dipstick Negative /ul (Negative); Nitrite-Dipstick Negative (Negative); Occult Blood-Urine Negative /ul (Negative); Protein-Dipstick Negative (Negative); Specific Gravity, Urine 1.010 (1.002-1.030); Urine Bilirubin Dipstick Negative (Negative)
[2024-12-16] MEDS: 0.9% Normal Saline (1000mL) 1,000 ML 999 ML IV (13:57)
[2024-12-16 13:58] LABS: Internal QC Validated? YES +Cl - CLEAR BKGD; Pregnancy, Urine Negative Negative; Record Kit Lot#,Urine Preg 962302
[2024-12-16 14:06] LABS: Squamous Epithelial Cells - UA 0-5 SEEN /hpf (5-10)
[2024-12-16 14:26] LABS: AST(SGOT) 22 U/L (<=31); Alanine Aminotransfer ALT/SGPT 27 U/L (<=34); Albumin, Serum 3.8 g/dL (3.5-5.0); Alkaline Phosphatase 81 U/L (35-104); Anion Gap 9 (5-15); BUN 9 mg/dL (4-19); BUN/Creat Ratio 9.6 RATIO (10-20); Bilirubin, Direct 0.11 mg/dL (0.00-0.30); Calcium,Total 9.0 mg/dL (7.6-11.0); Carbon Dioxide 22.9 mmol/L (21.0-32.0); Chloride 107 mmol/L (98-108); Estimated Creatinine Clearance 127.64 ml/min (50-250); Globulin 2.9 g/dL (2.2-4.2); Glucose 86 mg/dL (70-99); Lipase 38 U/L (13-75); Potassium 4.2 mmol/L (3.3-5.1)
[2024-12-16 15:00] VITALS: BP 128/81; PULSE 92; RESP 16; O2SAT 99
[2024-12-16 16:54] VITALS: BP 127/69; PULSE 58; RESP 16; TEMP 36.8; O2SAT 99
== END 2024-12-16 16:55 | disposition home or self-care (01) ==
PROVIDERS: Emergency Provider Emergency Medicine; Visit Provider Emergency Medicine
DX: R10.11 Right upper quadrant pain (principal); F41.9 Anxiety disorder, unspecified; F32.A Depression, unspecified; Z79.899 Other long term (current) drug therapy; F17.290 Nicotine dependence, other tobacco product, uncomplicated; K80.50 Calculus of bile duct without cholangitis or cholecystitis without obstruction
CPT/HCPCS: 76705; 80048; 80076; 81001; 81025; 83690; 85025; 96361; 96374; 99283

== ENCOUNTER 2024-12-31 22:33 | Emergency (ER) | payer MEDICAID, SELFPAY ==
[2024-12-31 22:35] VITALS: BP 115/83; PULSE 101; RESP 16; TEMP 36.8; O2SAT 98; BMI 34.7
[2024-12-31 22:38] VITALS: BP 115/83; PULSE 101; RESP 16; TEMP 36.8; O2SAT 98
--- NOTE | 2024-12-31 22:49 | US_ITS ---
PROCEDURE: GALLBLADDER 12/31/2024 REASON FOR EXAM: PAIN COMPARISON: 12/16/2024 FINDINGS: Liver is normal in size and echogenicity. CBD measures 5 mm. There are gallstones and localized pain. No wall thickening or pericholecystic fluid.. Unremarkable visible pancreas. Right kidney measures 10 cm in length without hydronephrosis. US/Gallbladder IMPRESSION: Gallstones and localized pain. If there is clinical concern for cholecystitis, recommend HIDA scanning. Reading Location: [place] [id number]
--- NOTE | 2024-12-31 22:50 | ED.VIS.GI ---
HPI HPI - GI History of Present Illness Chief Complaint: Abd Pain Informant: patient Abdominal Pain/Flank Pain Onset: Today and Hours Context: Gradual Onset Timing: Intermittent Quality: Aching Location: RUQ Current Severity: Moderate Maximum Severity: Moderate Nausea/Vomiting/Emesis GI Symptom: Positive for Nausea Severity: Mild Diarrhea/Melena/Hematochezia GI Symptom: Negative for Diarrhea, Melena or Hematochezia Associated Symptoms Associated Symptoms: Negative for Dysuria, Frequency, Hematuria or Urgency Narrative Narrative: 29-year-old female known history of gallstones and anemia. Has had diagnosis of gallstones about a year. She is intermittent episodes where she gets biliary colic. She was seen recently had CAT scan and ultrasound within the last several weeks. She has an appointment set up to see Dr. Jorge Easley at [facility] on January 08. States she is having right upper quadrant pain tonight. Associated nausea. No fever. No vomiting. No diarrhea. No dysuria. She has never had any abdominal surgeries. Prior similar symptoms: Yes Recent Illness/Hospitalization: No PFSH PFSH Medical History Gallstone Wears contact lenses Depression Anxiety Easy bruising Back pain Gastric reflux Vapes nicotine containing substance History of stress test Anemia Home Medications ?Medication ?Instructions ?Recorded ?Last Taken ?Type quetiapine 25 mg tablet 25 mg PO QHS 11/27/23 Unknown History sertraline 100 mg tablet 150 mg PO DAILY 11/27/23 Unknown History ondansetron 4 mg disintegrating 4 mg PO TID PRN nausea and 11/29/24 Unknown Rx tablet vomiting #21 tabs oxycodone-acetaminophen 5 mg-325 1 tab PO Q6H PRN pain 3 days #12 11/29/24 Unknown Rx mg tablet (Percocet) tabs dicyclomine 20 mg tablet 40 mg (2 x 20 mg) PO TID PRN 12/16/24 Unknown Rx abdominal pain #20 tabs Allergy/AdvReac Type Severity Reaction Status Date / Time No Known Allergies Allergy Verified 12/31/24 22:38 Family History Grandmother Diabetes Mother Heart disease Surgical History H/O adenoidectomy Social History Smoking Status: Current every day smoker tobacco type: e-cigarettes ROS ROS ED ROS Narrative Abdominal pain. Nausea. Constitutional Constitutional ED: Denies chills or fever(s) ENT ENT ED: Denies ear pain Cardiovascular Cardiovascular: Denies chest pain Respiratory/Chest Respiratory/Chest: Denies cough or dyspnea Gastrointestinal Gastrointestinal: Reports abdominal pain and nausea; Denies constipation, diarrhea, melena or vomiting Genitourinary Genitourinary ED: Denies dysuria or hematuria Musculoskeletal Musculoskeletal: Denies arthralgias, back pain, myalgias or neck pain Integumentary Denies abscess, Abrasions or rash Neurologic Neurologic: Denies headache(s) Psychiatric Psychiatric: Denies anxiety Endocrine Endocrinology: Denies polydipsia Hematologic/Lymphatic Hematologic/Lymphatic: Denies easy bleeding, easy bruising or lymphadenopathy Allergic/Immunologic Allergic/Immunologic ED: Denies mouth swelling, tongue swelling or urticaria EXAM Physical Exam Narrative Exam Narrative: 29-year-old female sitting upright in bed no acute distress. Vital signs stable afebrile. Does not appear to be septic toxic. H EENT exam pupils round react light. Mytrex membranes. No facial droop. Normal speech. Neck nontender no lymphadenopathy. Lungs clear to auscultation bilaterally. Heart regular rhythm no murmur. Rate about 100. Chest wall ribs nontender. Abdomen soft nondistended normal bowel sounds without peritoneal signs. She does have mild right upper quadrant tenderness but not a Porter sign. Right lower quadrant unremarkable abdomen is nondistended. There is no hernia or mass. Back nontender. Neurologically she is awake and alert. Answering questions following commands. Equal symmetrical 5 out of 5 binding cementer french cord strength. Dorsi plantarflexion intact. No focal motor deficits. Const Vital Signs: 12/31/24 22:35 12/31/24 22:38 Temperature 98.3 F 98.3 F Temperature Source Oral Oral Pulse Rate 101 H 101 H Respiratory Rate 16 16 Blood Pressure 115/83 H 115/83 H Blood Pressure Mean 93 93 Pulse Ox 98 98 Oxygen Delivery Method Room Air Positive well nourished and well developed; Negative for cachectic, contractures or unkempt General Appearance ED: well developed and NAD; Negative for unkempt, cachectic, contractures or pallor Nutritional Appearance: Negative for cachectic HEENT Reports moist mucous membranes normocephalic and atraumatic Eyes PERRL and EOMs intact bilaterally Neck no lymphadenopathy, supple and no JVD Resp normal respiratory effort and clear to auscultation bilaterally Cardio regular rate, regular rhythm, S1 normal heart sound, S2 normal heart sound and no murmurs GI non-distended and no masses; Negative for non-tender GI Narrative: Mild right upper quadrant tenderness. But no rebound guarding rigidity. No Porter sign. No hernia or mass. No obstruction. Auscultation: normoactive bowel sounds Palpation: soft and tender; Negative for guarding, rigid, hepatomegaly, splenomegaly, hernia, mass, pulsatile mass or rebound tenderness present Back/Spine no CVA tenderness General Back: Negative for CVA tenderness Cervical Spine: Negative for cervical spine tenderness Thoracic Spine / Upper Back: Negative for thoracic spinal tenderness Lumbar Spine / Lower Back: Negative for lumbar spinal tenderness Extremity full ROM General Extremety ED: Negative for edema or tenderness General Extremity: Negative for edema Neuro CN's II-XII intact bilaterally and moves all extremities Sensorium / Orientation: alert, oriented to person, oriented to place and oriented to time Motor Exam: strength 5/5 throughout Psych mental status grossly normal and thought process normal Appearance: Negative for unkempt Mood & Affect: Negative for depressed, anxious or tearful Skin no wounds General Skin Exam: Negative for jaundice or pallor Lesions: no lesions Rashes: no rashes Trauma: Negative for abrasion Nails: Negative for discolored MDM MDM MDM Narrative Medical decision making narrative: 29-year-old female with recurrent abdominal pain with a known history of gallstones. She will be treated with IV Toradol morphine. Zofran. Screening labs and a right upper quadrant ultrasound to be obtained. She has had recent similar workups for the recent CAT scan and a recent right upper quadrant ultrasound. She is an upcoming appointment with general surgery in about 8 days. Repeat exam at 11:32 PM patient doing well. Abdomen is currently benign. She does not have any right upper quadrant tenderness. We discussed her normal lab results. Awaiting her ultrasound result. Repeat exam patient is doing well at 11:52 PM. She will be discharged home with outpatient follow-up with her general surgeon. Given home-going instructions to return if worse. History & Record Review Discussion w/independent historian: Patient Additional record(s) reviewed:: Prior inpatient record, Prior outpatient record, Prior ED visit and Prior labs Lab Data Attestation: I reviewed the patient's lab results. Lab results narrative: CBC normal. White count 8. H&H 12 and 38. Platelets 328. Chemistries show a normal gap of 14. Normal BUN and creatinine of 10 and 1.1. Glucose 98. Liver enzymes normal. Lipase normal at 36. Gallbladder ultrasound shows gallstones but no acute cholecystitis or obstruction. Labs: Laboratory Results - last 24 hr 12/31/24 23:05 WBC 8.3 RBC 4.77 Hgb 12.2 Hct 38.2 MCV 80.1 L MCH 25.6 L MCHC 31.9 L RDW Std Deviation 41.0 RDW Coeff of Marvin 14.0 Plt Count 328 MPV 10.7 Immature Gran % (Auto) 0.200 Neut % (Auto) 48.3 Lymph % (Auto) 38.6 Coffee % (Auto) 9.4 Eos % (Auto) 2.5 Baso % (Auto) 1.0 Absolute Neuts (auto) 4.0 Absolute Lymphs (auto) 3.22 Nucleated RBC % 0 Sodium 138 Potassium 3.7 Chloride 104 Carbon Dioxide 20.5 L Anion Gap 14 BUN 10 Creatinine 1.10 Estim Creat Clear Calc 106.70 Est GFR (MDRD) Non-Af 69 BUN/Creatinine Ratio 9.1 L Glucose 98 Calcium 9.2 Total Bilirubin 0.29 AST 23 ALT 18 Alkaline Phosphatase 79 Total Protein 7.4 Albumin 4.1 Globulin 3.4 Albumin/Globulin Ratio 1.2 Lipase 36 Radiography Diagnostic Testing: Clinical Impression(s) from Imaging Studies Gallbladder Ultrasound 12/31/24 22:49 IMPRESSION: Gallstones and localized pain. If there is clinical concern for cholecystitis, recommend HIDA scanning. Reading Location: [place] [address] Discharge Plan Triage Chief Complaint: Abd Pain ED Provider: Jay Isaac Dx/Rx/DC Orders Clinical Impression: Abdominal pain, Biliary colic, Hx of gallstones Instructions: ED Gallstones with Biliary Colic Prescriptions: No Action dicyclomine 20 mg tablet 40 mg PO TID PRN (Reason: abdominal pain) Qty: 20 0RF quetiapine 25 mg tablet 25 mg PO QHS sertraline 100 mg tablet 150 mg PO DAILY ondansetron 4 mg tablet,disintegrating 4 mg PO TID PRN (Reason: nausea and vomiting) Qty: 21 0RF oxycodone-acetaminophen [Percocet] 5-325 mg tablet 1 tab PO Q6H PRN (Reason: pain) 3 Days Qty: 12 0RF Primary Care Provider: Care Physician,No Primary Referrals: Ion Easley MD [Med Staff - Active Staff] - As soon as possible Care Physician,No Primary [Primary Care Provider] - Activity Restrictions/Additional Instructions: Call your surgeon's office to see if they get you in sooner than . Tylenol and or Motrin for pain. If you have recurrent pain that you are unable to control, fever or intractable vomiting return. Otherwise just follow-up with your general surgeon. Print Language: Italian Disposition Disposition: Home, Self Care
--- OUTSIDE RECORDS SUMMARY | 2024-12-31 22:55 | XMS RPT_ITS | CCD ---
Author Organization [facility] Care Team Providers Care Academic Success Coordinator Name Role Phone Allen Agustin Unavailable Unavailable Unavailable, Family Physician Unavailable Un available Unavailable, Family Physician Unavailable Un available Unavailable, Family Physician Unavailable Un available Unavailable, Family Physician Unavailable Un available Renita King Unavailable Unavailable Renita King Unavailable Unavailable Sherif Azevedo Unavailable Unavaila ble Sherif Azeveod Unavailable Unavaila ble UNKNOWN, PCP Unavailable Unavailable Sherif Azevedo Unavailable Unavaila ble MARCY GUARDADO DO Admitting Unavailable MARCY GUARDADO DO Attending Unavailable MARCY GUARDADO DO Primary Care Unavailable NO, DOCTOR ON Consulting Unavailable MICHELE REYNOLDS Admitting Unavailable MICHELE REYNOLDS Attending Unavailable MICHELE REYNOLDS Primary Care Unavailable NO, DOCTOR ON Consulting Unavailable NO, DOCTOR ON Referring Unavailable Unavailable Primary Care Provider Unavailabl e Unavailable Primary Care Provider Unavailabl e Unavailable Primary Care Provider Unavailabl e Macario SCHMITZ Zulema Primary Care Provider Unavailable Primary Care Provider Unavailabl e Nikki SCHMITZ Zulema Primary Care Provider Khaliarlene DO, Quintin Primary Care Provider [phone] PHYSICIAN, NONE Primary Care Physician Unavailab DR JOAQUÍN Garcia DO Attending Unavailable PHYSICIAN, NONE Primary Care Unavailable Khalid DO, Quintin Primary Care Provider ZULEMA DUNLAP Primary Care Unavailable VINCE HOPE Attending Unavailable Unavailable Primary Care Provider Unavailabl e Khalid DO, Greenevers Primary Care Provider Orestes Heath MD Unavailable BUDDY HOPKINS Attending Unavailable KHALID, QUINTIN Primary Care Unavailable KHALID, QUINTIN Primary Care Unavailable PARAMJIT ROBERTSON Attending Unavail able KHALID, QUINTIN Primary Care Unavailable ORESTES HEATH Referring Unavailable KHALID, QUINTIN Primary Care Unavailable Care Physician, No Primary Primary Care Provider Unavailable Dr. Shailesh Merritt DO Emergency Provider Dr. Shailesh Merritt DO Attending Provider Dr. Alison Dodson DO Emergency Provider JUDY, ЕЛЕНА Referring Unavailable KHALID, QUINTIN Primary Care Unavailable JUDY, ЕЛЕНА Referring Unavailable KHALID, QUINTIN Primary Care Unavailable FRANCISCO COMBS Referring Unavailable RICK MCKINNON Attending Unavailable MARY JASSO Attending Unavailable SELF Referring Unavailable KHALID, QUINTIN Primary Care Unavailable JUDY, ЕЛЕНА Attending Unavailable KHALID, QUINTIN Primary Care Unavailable Vince Flores Attending Unavailable Care Physician, No Primary Referring Unava ilable Care Physician, No Primary Primary Care Unava ilable Care Physician, No Primary Primary Care Unava ilable Ion Easley Attending Unavailable Care Physician, No Primary Referring Unava ilable Care Physician, No Primary Primary Care Unava ilable Alison Dodson Attending Unavailable Care Physician, No Primary Primary Care Unava ilable Shailesh Merritt Attending Unavailable Medications Current Medications Medication Drug Class(es) Dates Sig (Normalized) Sig (Original) acetaminophen 325 mg / oxyCODONE hydrochloride 5 mg oral tablet (4 sources) Opioid Agonist Start: 11-29-2024 take 1 tablet by mouth every six hours as needed for pain Oxycodone-Acetamino phen (Percocet) 5-325 mg tablet Active 1 {tbl} PO EVERY 6 HOURS as needed for pain 12 3 0 November 29, 2024 Biliary colic Calculus of bile duct without cholangitis or cholecystitis without obstruction Start: 11-27-2023 End: 12-12-2023 Oxycodone-Acetaminophen (Per cocet) 5-325 mg tablet Discontinued 1 {tbl} PO EVERY 6 HOURS as needed for pain 12 3 0 November 27, 2023 December 12, 2023 12:27pm Cholelithiasis Biliary colic Calculus of gallbladder without cholecystitis without obstruction Calculus of bile duct without cholangitis or cholecystitis without obstruction baclofen 20 mg oral tablet (1 source) gamma-Aminobutyric Acid-ergic Agonist Start: 08-23-2023 End: 08-28-2023 baclofen 20 mg oral tablet Dose : 20 mg = 1 tab(s), Oral, BID, # 10 tab(s), 0 Refill(s) Start Date: 08/23/23 Stop Date: 08/28/23 Status: Ordered dicyclomine hydrochloride 20 mg oral tablet (1 source) Anticholinergic Start: 12-16-2024 take 2 tablets by mouth three times daily as needed for pain Dicyclomine 20 mg tablet Active 40 mg PO THREE TIMES A DAY as needed for abdominal pain December 16, 2024 4:42pm ferrous sulfate 325 mg oral tablet (20 [...] Date: 08/30/23 Status: Ordered ondansetron 4 mg disintegrating oral tablet (19 sources) Serotonin-3 Receptor Antagonist Start: 11-29-2024 take 1 tablet by mouth three times daily as needed for nausea and vomiting Ondansetron 4 mg tablet,disinteg rating Active 4 mg PO THREE TIMES A DAY as needed for nausea and vomiting November 29, 2024 2:48am Start: 11-27-2023 End: 12-12-2023 take 1 tablet by mouth three times daily as needed for nausea and vomiting Ondansetron 4 mg tablet,disintegrating Discontinued 4 mg PO THREE TIMES A DAY as needed for nausea and vomiting 21 0 November 27, 2023 5:42am December 12, 2023 12:26pm Start: 04-18-2023 End: 05-26-2023 take 1 tablet [...] days. 20 tablet 0 03/28/2023 04/04/2023 Active Start: 08-11-2017 End: 11-27-2023 take 1 tablet by mouth every eight hours as needed for nausea Ondansetron 4 MG tablet Discontinued 4 mg PO EVERY 8 HOURS NEEDED as needed for Nausea 10 0 November 03, 2023 3:19pm November 27, 2023 4:22am QUEtiapine 25 mg oral tablet (20 sources) Atypical Antipsychotic Start: 02-07-2023 take 1 tablet by mouth at bedtime Quetiapine 25 mg tablet Active 25 mg PO AT BEDTIME November 27, 2023 12:00am sertraline 100 mg oral tablet (20 sources) Serotonin Reuptake Inhibitor Start: 11-27-2023 Sertraline 100 mg tablet Active 150 mg PO DAILY November 27, 2023 12:00am Start: 02-07-2023 take 1 tablet by mireille once daily sertraline (Zoloft) 50 MG tablet [...] Drug Class(es) Dates Sig (Normalized) Sig (Original) acetaminophen 325 mg / HYDROcodone bitartrate 5 mg oral tablet (2 sources) Opioid Agonist Start: 11-03-2023 End: 11-27-2023 Hydrocodone-Aceta minophen 5-325 mg tablet Discontinued 1 {tbl} PO EVERY 6 HOURS NEEDED as needed for Pain 10 3 0 November 03, 2023 November 27, 2023 4:22am Right upper quadrant abdominal pain Right upper quadrant pain [id number] 200 actuat albuterol 0.09 mg/actuat metered dose [...] 7 days. 14 tablet 03/29/2024 04/05/2024 Active naproxen 500 mg oral tablet (4 sources) Nonsteroidal Anti-inflammatory Drug Start: 08-11-2017 End: 11-27-2023 take 1 tablet by mouth twice daily Naproxen 500 MG tablet Discontinued 500 mg PO TWICE A DAY January 05, 2019 12:00am November 27, 2023 4:22am pantoprazole 20 mg delayed release oral tablet (9 sources) Proton Pump Inhibitor Start: 12-01-2023 End: 11-29-2024 take 1 tablet by mouth once daily in the morning Pantoprazole 20 mg tablet,delayed release (DR/EC) Discontinued 20 mg PO DAILY 30 0 December 01, 2023 12:00am November 29, 2024 12:07am Take one tablet by mouth in the morning Start: 05-08-2023 End: 06-03-2024 take 1 tablet by mouth once daily pantoprazole DR (PROTONIX) 40 mg tablet Take 1 tablet by mouth once daily. 30 tablet 05/08/2023 06/03/2024 Discontinued Comment on above: Take 1 tablet by mireille th once daily. Problems Active Problems Problem Classification Problem Date Documented Date Episodic/Chronic Abdominal pain (20 sources) Epigastric pain; Translations: [Epigastric pain] Onset: 03-28-2023 03-27-2023 Episodic Comment on above: Plan to proceed for EGD to evaluate for possible gastritis/gastric ulcer/other. In the meantime patient wishes to know what she is to do about her pain. I do not believe that continuing to treat this with analgesics or narcotics is in patient's best interest if we have a more probable cause with treatment of her potential ulcer disease so I will begin PPI therapy. Anxiety disorders (1 source) Mixed anxiety and depressive disorder; Translations: [Anxiety disorder, unspecified] 12-07-2024 Chronic Biliary tract disease (20 sources) Gallstone; Translations: [Calculus of gallbladder without cholecystitis without obstruction] Onset: 08-14-2023 08-14-2023 Episodic Comment on above: Patient with a histo ry of cholelithiasis that was diagnosed through several ER visits for upper abdominal pain. Patient's most recent ultrasound from October of this year was reviewed and does confirm just cholelithiasis. Patient's descriptions of abdominal pain are not necessarily consistent with a gallbladder source given the timing of the onset of pain with eating and where her exam shows the discomfort to be most pronounced. She also shares that she met with surgery previously for a consultation and no surgery was offered at that time but she was given an offer for a HIDA imaging. I shared with patient that I largely agreed with this assessment yet, I do find her epigastric tenderness to be somewhat significant and would question if this is perhaps related to an underlying gastritis or gastric ulcer. Thus while I offered hide imaging could be completed I did recommend we proceed with EGD first and if this study is negative then proceed with the nuclear study. Patient was receptive of this recommendation. Deficiency and other anemia (1 source) Iron deficiency anemia, unspecified; Translations: [Iron deficiency anemia, unspecified] Onset: 11-05-2019 Episodic Immunizations and screening for infectious disease (1 source) Patient encounter status; Translations: [Encounter for screening for human papillomavirus (HPV)] 06-03-2024 Episodic Intracranial injury (2 sources) Concussion injury of body structure; Translations: [Concussion] 08-13-2017 Episodic Menstrual disorders (16 sources) Missed period; Translations: [Irregular menstruation, unspecified] Onset: 03-28-2023 03-27-2023 Chronic Nausea and vomiting (16 sources) Nausea and vomiting; Translations: [Nausea with vomiting, unspecified] Onset: 03-28-2023 03-27-2023 Episodic Other connective tissue disease (1 source) Other muscle spasm; Translations: [Other muscle spasm] Onset: 11-05-2019 Episodic Other infections; including parasitic (2 sources) Infection by Trichomonas; Translations: [Trichomoniasis, unspecified] 03-29-2024 Episodic Other infections; including parasitic (2 sources) Trichomoniasis, unspecified; Translations: [Trichomoniasis, unspecified] Onset: 03-29-2024 Episodic Other nervous system disorders (1 source) Numbness; Translations: [Anesthesia of skin] Episodic Other non-traumatic joint disorders (1 source) Pain in right knee; Translations: [Pain in joint, lower leg] 06-12-2024 Episodic Other nutritional; endocrine; and metabolic disorders (18 sources) Severe obesity; Translations: [Morbid (severe) obesity due to excess calories] Onset: 08-14-2023 08-14-2023 Chronic Other nutritional; endocrine; and metabolic disorders (1 source) 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; Translations: [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] 07-08-2024 Chronic Other nutritional; endocrine; and metabolic disorders (2 sources) Obese class II; Translations: [Obesity, Class II, [...] Translations: [Nicotine dependence] Onset: 11-13-2019 03-25-2023 Chronic Syncope (2 sources) Near syncope; Translations: [Syncope and collapse] 03-12-2014 Episodic Unclassified (2 sources) Precipitate labor / O62.3(ICD-10) [...] Other Problems Problem Classification Problem Date Documented Da te Episodic/Chronic Bacterial infection; unspecified site (20 sources) Chlamydial infection; Translations: [Chlamydial infection, unspecified] Onset: 07-15-2014 Resolved: 06-03-2024 05-17-2021 Episodic Blindness and vision defects (16 sources) Eye / vision finding; Translations: [Unspecified [...] to shoulder dystocia] Onset: 03-07-2017 03-25-2023 Episodic Nonspecific chest pain (20 sources) Chest pain; Translations: [Chest pain, unspecified] Onset: 08-14-2023 08-14-2023 Episodic Other complications of (16 sources) Insufficient care; Translations: [Supervision of with insufficient care, unspecified trimester] Onset: 02-05-2015 Resolved: 05-08-2015 05-17-2021 Episodic Other non-traumatic joint disorders (15 sources) Pain in left shoulder; Translations: [Pain in joint, shoulder region] Onset: 11-05-2019 03-25-2023 Episodic Prolonged (10 sources) Post-term ; Translations: [...] Test Name Value Interpretation Reference Range Facility Absolute lymphocyte countOrd ered By: Alison Dodson on 12-16-2024 Lymphocytes Auto (Unsp spec) [#/Vol] 1.68 10*3/uL 0.83-4.51 [facility] Absolute neutrophil countOrd ered By: Alison Dodson on 12-16-2024 Neutrophils (Bld) [#/Vol] 4.5 10*3/uL 2.0-7.7 [facility] Anion gap in Serum or Plasma Ordered By: Alison Dodson on 12-16-2024 Anion gap [Moles/Vol] 9 mmol/L 5-15 [facility] Automated lymphocyte count a s percentage of total leukocytesOrdered By: Alison Dodson on 12-16-2024 Lymphocytes/100 WBC Auto (Unsp spec) 24.6 % 19-41 [facility] BUN/creatinine ratioOrdered By: Alison Dodson on 12-16-2024 Urea nitrogen/Creatinine [Mass ratio] 9.6 mg/mg Low 10-20 [facility] Basic Metabolic Profile (BMP )on 12-16-2024 BUN/CRE 9.6 RATIO Low 10- [facility] Comment on above: Performed By: #### L 700.6800, L501.2450, L500.2500, L100.0100, L500.3400 #### [facility] [address] [place], [address] Calcium [Mass/Vol] 9.0 mg/dL Normal 7.6-11.0 [facility] Comment on above: Performed By: #### L 700.6800, L501.2450, L500.2500, L100.0100, L500.3400 #### [facility] [address] [place], [address] Chloride [Moles/Vol] 107 mmol/L Normal 98-108 [facility] Comment on above: Performed By: #### L 700.6800, L501.2450, L500.2500, L100.0100, L500.3400 #### [facility] [address] [place], [address] CO2 [Moles/Vol] 22.9 mmol/L Normal 21.0-32.0 [facility] Comment on above: Performed By: #### L 700.6800, L501.2450, L500.2500, L100.0100, L500.3400 #### [facility] [address] [place], [address] Creatinine [Mass/Vol] 0.94 mg/dL Normal 0.70-1.20 [facility] Comment on above: Performed By: #### L 700.6800, L501.2450, L500.2500, L100.0100, L500.3400 #### [facility] [address] [place], [address] ECRCL 127.64 ml/min Normal 50-250 [facility] Comment on above: Performed By: #### L 700.6800, L501.2450, L500.2500, L100.0100, L500.3400 #### [facility] [address] [place], [address] GAP 9 Normal 5-15 [facility] Comment on above: Performed By: #### L 700.6800, L501.2450, L500.2500, L100.0100, L500.3400 #### [facility] [address] [place], [address] GFR/1.73 sq M.predicted among non-blacks MDRD (S/P/Bld) [Vol rate/Area] 84 mL/min/{1.73_m2} Normal >60 [facility] Comment on above: Result Comment: mL/m in/1.73m2 CKD-EPI Creatinine Equation (2020) Performed By: #### L 700.6800, L501.2450, L500.2500, L100.0100, L500.3400 #### [facility] [address] [place], [address] Glucose [Mass/Vol] 86 mg/dL Normal 70-99 [facility] Comment on above: Performed By: #### L 700.6800, L501.2450, L500.2500, L100.0100, L500.3400 #### [facility] [address] [place], [address] Potassium [Moles/Vol] 4.2 mmol/L Normal 3.3-5.1 [facility] Comment on above: Performed By: #### L 700.6800, L501.2450, L500.2500, L100.0100, L500.3400 #### [facility] [address] [place], [address] Sodium [Moles/Vol] 138 mmol/L Normal 133-145 [facility] Comment on above: Performed By: #### L 700.6800, L501.2450, L500.2500, L100.0100, L500.3400 #### [facility] [address] [place], [address] Urea nitrogen [Mass/Vol] 9 mg/dL Normal 4-19 [facility] Comment on above: Performed By: #### L 700.6800, L501.2450, L500.2500, L100.0100, L500.3400 #### [facility] [address] [place], [address] Basophil percentageOrdered B y: Alison Dodson on 12-16-2024 Basophils/100 WBC (Bld) 0.6 % 0-1 [facility] Bilirubin Test strip Ql (U)O rdered By: Alison Dodson on 12-16-2024 Bilirubin Ql (U) Negative Negative [facility] Bilirubin directOrdered By: Alison Dodson on 12-16-2024 Bilirubin.direct [Mass/Vol] 0.11 mg/dL 0.00-0.30 [facility] Bilirubin, totalOrdered By: Alison Dodson on 12-16-2024 Bilirubin [Mass/Vol] 0.24 mg/dL 0.00-1.30 [facility] CBC W/Diff, Automatedon 11-20 Absolute Lymph 1.68 X10 3/uL Normal 0.83-4.51 [facility] Comment on above: Performed By: #### L 501.2450, L500.3400, L100.0100, L500.2500 #### [facility] [address] [place], [address] Absolute Neut 4.5 X10 3/uL Normal 2.0-7.7 [facility] Comment on above: Performed By: #### L 501.2450, L500.3400, L100.0100, L500.2500 #### [facility] [address] [place], [address] Basophils/100 WBC (Bld) 0.6 % Normal 0-1 [facility] Comment on above: Performed By: #### L 501.2450, L500.3400, L100.0100, L500.2500 #### [facility] [address] [place], [address] Eosinophils/100 WBC (Bld) 2.0 % Normal 0-5 [facility] Comment on above: Performed By: #### L 501.2450, L500.3400, L100.0100, L500.2500 #### [facility] [address] [place], [address] Erythrocyte distribution width (RBC) [Ratio] 14.6 % Normal 11.6-14.6 [facility] Comment on above: Performed By: #### L 501.2450, L500.3400, L100.0100, L500.2500 #### [facility] [address] [place], [address] Hematocrit (Bld) [Volume fraction] 35.9 % Low 37-47 [facility] Comment on above: Performed By: #### L 501.2450, L500.3400, L100.0100, L500.2500 #### [facility] [address] [place], [address] Hemoglobin (Bld) [Mass/Vol] 11.2 g/dL Low 12.0-15.0 [facility] Comment on above: Performed By: #### L 501.2450, L500.3400, L100.0100, L500.2500 #### [facility] [address] [place], [address] IG% 0.300 Normal 0.0-0.9 [facility] Comment on above: Result Comment: IG% - Immature Granulocytes (promyelocytes, myelocytes and metamyelocytes) > 1% indicates that a LEFT SHIFT is Present. Performed By: #### L 501.2450, L500.3400, L100.0100, L500.2500 #### [facility] [address] [place], [address] Lymphocytes/100 WBC (Bld) 24.6 % Normal 19-41 [facility] Comment on above: Performed By: #### L 501.2450, L500.3400, L100.0100, L500.2500 #### [facility] [address] [place], [address] MCH (RBC) [Entitic mass] 25.7 pg Low 27.0-32.0 [facility] Comment on above: Performed By: #### L 501.2450, L500.3400, L100.0100, L500.2500 #### [facility] [address] [place], [address] MCHC (RBC) [Mass/Vol] 31.2 g/dL Low 32-36 [facility] Comment on above: Performed By: #### L 501.2450, L500.3400, L100.0100, L500.2500 #### [facility] [address] [place], [address] MCV (RBC) [Entitic vol] 82.3 fL Normal 81-99 [facility] Comment on above: Performed By: #### L 501.2450, L500.3400, L100.0100, L500.2500 #### [facility] [address] [place], [address] Monocytes/100 WBC (Bld) 7.3 % Normal 0-10 [facility] Comment on above: Performed By: #### L 501.2450, L500.3400, L100.0100, L500.2500 #### [facility] [address] [place], [address] Neutrophils/100 WBC (Bld) 65.2 % Normal 47-70 [facility] Comment on above: Performed By: #### L 501.2450, L500.3400, L100.0100, L500.2500 #### [facility] [address] [place], [address] Nucleated RBC (Bld) [#/Vol] 0 10*3/uL Normal 0-5 [facility] Comment on above: Performed By: #### L 501.2450, L500.3400, L100.0100, L500.2500 #### [facility] [address] [place], [address] Platelet mean volume (Bld) [Entitic vol] 11.1 fL Normal 6.2-12.0 [facility] Comment on above: Performed By: #### L 501.2450, L500.3400, L100.0100, L500.2500 #### [facility] [address] [place], [address] Platelets (Bld) [#/Vol] 279 10*3/uL Normal 150-450 [facility] Comment on above: Performed By: #### L 501.2450, L500.3400, L100.0100, L500.2500 #### [facility] [address] [place], [address] RBC (Bld) [#/Vol] 4.36 10*6/uL Normal 4.2-5.4 [facility] Comment on above: Performed By: #### L 501.2450, L500.3400, L100.0100, L500.2500 #### [facility] [address] [place], [address] RDW SD 43.8 fl Normal 35.1-43.9 [facility] Comment on above: Performed By: #### L 501.2450, L500.3400, L100.0100, L500.2500 #### [facility] [address] [place], [address] WBC (Bld) [#/Vol] 6.8 10*3/uL Normal 4.4-11.0 [facility] Comment on above: Performed By: #### L 501.2450, L500.3400, L100.0100, L500.2500 #### [facility] [address] [place], [address] CNOVon 12-16-2024 CNOV Office Visit ([facility]) ----- AGUEDA LEWIS ([id number]) 1995 F Date Time Provider Department 12/16/24 11:45 AM RICK MCKINNON During your visit today, we recorded the following information about you: Temperature Pulse Respiration Blood pressure 98.3 degrees 85/minute 18/minute 112/88 Weight 120.8 kg Rick Mckinnon, BELK[employer].ADHESIVE [employer]AGE MACHINE OPERATOR 12/16/2024 11:55 AM Signed [facility] Cheri Lewis is a 29 year old female. Patient presents with: Pain: Right side and rib pain, pt has gallstones x 4 days HPI Nontoxic-appearing 29-year-old female presents urgent care chief complaint abdominal pain. Duration of symptoms 4 days. Associated symptoms progressively worsening abdominal pain. Was diagnosed with gallstones 1 year ago. OTC medications are not helping with pain management. Has been nauseous. Has been unable to eat for 2 days. Past medical history prescription medications allergies reviewed. Review of Systems Constitutional: Negative for chills, diaphoresis, fatigue and fever. HENT: Negative for congestion, drooling, ear discharge, ear pain, rhinorrhea, sinus pressure, sinus pain, sneezing, sore throat and trouble swallowing. Eyes: Negative for pain, discharge, redness, itching and visual disturbance. Respiratory: Negative for cough, chest tightness, shortness of breath and wheezing. Cardiovascular: Negative for chest pain. Gastrointestinal: Positive for abdominal pain and nausea. Negative for abdominal distention, blood in stool, constipation, diarrhea and vomiting. Genitourinary: Negative for difficulty urinating and dysuria. Musculoskeletal: Negative for arthralgias, joint swelling, neck pain and neck stiffness. Skin: Negative for rash. Neurological: Negative for dizziness, weakness, numbness and headaches. Objective BP 112/88 Pulse 85 Temp 36.8 ?C (98.3 ?F) Resp 18 Wt 120.8 kg (266 lb 5.1 oz) LMP 09/24/2024 (Exact Date) SpO2 99% BMI 37.14 kg/m? Physical Exam Constitutional: Appearance: Normal appearance. HENT: Mouth/Throat: Mouth: Mucous membranes are moist. Cardiovascular: Rate and Rhythm: Normal rate. Pulmonary: Effort: Pulmonary effort is normal. Breath sounds: Normal breath sounds. Abdominal: Tenderness: There is abdominal tenderness. There is guarding. There is no right CVA tenderness, left CVA tenderness or rebound. Neurological: Mental Status: She is alert. {ASSESSMENT/PLAN: 1. Right upper quadrant abdominal pain - ICD9: 789.01, ICD10: R10.11 Significant tenderness to palpation right upper quadrant. Referred to ED for imaging. Will be seen at [facility] Rick Mckinnon APRN.ADHESIVE BANDAGE MACHINE OPERATOR History and Record Review Clinical information obtained from an independent historian. History obtained from or confirmed by: parent. Disposition The patient was discharged. Transfer to ED was considered. Reason for not transferring: Procedures Allergies As of Date: 12/16/2024 (No Known Allergies) Date Reviewed: 12/16/2024 Reviewed by: Melinda Mckeon MA - Fully Assessed Reason for Visit: Pain [78] Cmt: Right side and rib pain, pt has gallstones x 4 days Primary Visit Diagnosis:Right upper quadrant abdominal pain [R10.11] Prescriptions as of 12/16/2024 - QUEtiapine (SEROQUEL) 25 mg tablet Take 25 mg by mouth daily at bedtime. - sertraline HCl (SERTRALINE ORAL) Take 125 mg by mouth once daily. - ferrous sulfate (IRON) 325 mg (65 mg iron) tablet Take 325 mg by mouth daily with breakfast. Problem List As Of Date 12/16/2024 Noted Resolved Mother with Hypertrophic cardiomyopathy [I42.2] [...] Obesity, Class II, BMI 35-39.9 [E66.812] 10/15/2024 Level of Service: OFFICE/OUTPATIENT ESTABLISHED LOW [facility] 20 MIN [83491] Encounter Status:Closed by RICK MCKINNON on 12/16/[address] [facility] Carbon dioxide, total [Moles /volume] in Central venous bloodOrdered By: Alison Dodson on 12-16-2024 CO2 [Moles/Vol] 22.9 mmol/L 21.0-32.0 [facility] Chloride assayOrdered By: Brandon Dodson on 12-16-2024 Chloride [Moles/Vol] 107 mmol/L 98-108 [facility] Emergency Department Summary on 12-16-2024 Emergency Department Summary [facility] Medical Records Department [address] [place] [address] Emergency Department Summary 12/16/24 MR#: [id number] Acct: [id number] Name: AGUEDA LEWIS Rep #: [id number] : 1995 29 From: Alison Dodson DO PCP: Care Physician,No Primary Status:REG ER Location: ED HPI HPI - GI History of Present Illness Chief Complaint: Abd Pain Informant: patient Narrative Narrative: Patient is a 29 year old female with history of biliary colic/gallstones, anxiety and depression presenting with worsening right upper quadrant abdominal pain. States started on (4 days ago) but is significantly worsening. She is able drink fluids not been able to eat anything for the past 2 days because of pain. Denies associated nausea or vomiting. Denies any change in bowel movements. States she has had back pain this bad. Denies radiation of pain. Was concerning for s/p work tonight. Denies any fever or chills. Was supposed to see general surgery for follow-up about this on 12/06 but did not relate she had an appointment so she missed it. Has been seen in the ER multiple times over the past year for biliary colic and cholelithiasis. Denies any urinary symptoms. Denies any concern for . [facility] Medical History Gallstone Wears contact lenses Depression Anxiety Easy bruising Back pain Gastric reflux Vapes nicotine containing substance History of stress test Anemia Home Medications ???Medication ???Instructions ???Recorded ???Last Taken ???Type quetiapine 25 mg tablet 25 mg PO QHS 11/27/23 Unknown Hist ory sertraline 100 mg tablet 150 mg PO DAILY 11/27/23 Unknown H istory ondansetron 4 mg disintegrating 4 mg PO TID PRN nausea and 5 Unknown Rx tablet vomiting #21 tabs oxycodone-acetaminophen 5 mg-325 1 tab PO Q6H PRN pain 3 days #12 0 11/29/24 Unknown Rx mg tablet (Percocet) tabs dicyclomine 20 mg tablet 40 mg (2 x 20 mg) PO TID PRN 12/16 Unknown Rx abdominal pain #20 tabs Allergy/AdvReac Type Severity Reaction Status Date / Time No Known Allergies Allergy Verified 12/16/24 11:59 Family History Grandmother Diabetes Mother Heart disease Surgical History H/O adenoidectomy Social History Smoking Status: Current every day smoker tobacco type: e-cigarettes ROS ROS ED Constitutional Constitutional ED: Denies chills or fever(s) Gastrointestinal Gastrointestinal: Reports abdominal pain; Denies diarrhea, nausea or vomiting Genitourinary Genitourinary ED: Denies dysuria or hematuria Musculoskeletal Musculoskeletal: Denies arthralgias or myalgias Integumentary Denies rash Neurologic Neurologic: Denies weakness Hematologic/Lymphatic Hematologic/Lymphatic: Denies easy bleeding or easy bruising EXAM Physical Exam Const Vital Signs: 12/16/24 11:57 12/16/24 13:56 12/16/24 15:00 Temperature 98.2 F Temperature Source Oral Pulse Rate 98 90 92 Respiratory Rate 18 16 16 Blood Pressure 124/86 H 130/79 H 128/81 H Blood Pressure Mean 98 96 96 Pulse Ox 99 99 99 Oxygen Delivery Method Room Air Positive well nourished and well developed General Appearance ED: well developed and NAD HEENT Reports moist mucous membranes Neck supple Resp normal respiratory effort and clear to auscultation bilaterally Cardio regular rate and regular rhythm GI Auscultation: normoactive bowel sounds Palpation: soft and tender RUQ and Porter's sign; Negative for guarding, rigid or rebound tenderness present Back/Spine no CVA tenderness Extremity full ROM General Extremety ED: Negative for edema General Extremity: Negative for edema Neuro Sensorium / Orientation: alert Motor Exam: Negative for general weakness Psych mental status grossly normal and thought process normal Skin no wounds General Skin Exam: Negative for jaundice MDM MDM MDM Narrative Medical decision making narrative: Patient via for ongoing epigastric/right upper quadrant abdominal pain. Has a prolonged history of biliary colic and renal colic. Is able to drink fluids but food bothers her. Denies any fevers. Differential includes biliary colic, choledocholithiasis, acute cholecystitis, pancreatitis and electrolyte derangement. Patient given Toradol for pain control and IV fluids in the emergency room. Workup including CBC, CMP and urinalysis as well as urine is largely negative. No leukocytosis present. No transaminitis present. Right upper quadrant ultrasound shows multiple gallstones with a mildly thickened gallbladder wall but no pericholecystic fl (more content not included)... Normal [facility] Eosinophil percentageOrdered By: Alison Dodson on 12-16-2024 Eosinophils/100 WBC (Bld) 2.0 % 0-5 [facility] Erythrocyte distribution wid th ratioOrdered By: Alison Dodson on 12-16-2024 Erythrocyte distribution width (RBC) [Ratio] 14.6 % 11.6-14.6 [facility] Erythrocyte distribution wid th standard deviationOrdered By: Alison Dodson on 12-16-2024 Erythrocyte distribution width (RBC) [Ratio] 43.8 fl 35.1-43.9 [facility] Gallbladderon 12-16-2024 Gallbladder [facility] Imaging Services [address] [place] [address] Gallbladder MR#: [id number] Acct: [id number] Name: AGUEDA LEWIS Rep #: [id number] : 1995 F 29 From: Michel lopes MD PCP: Care Physician,No Primary Status: DEP ER Study: Gallbladder Date of Exam: 12/16/24 Exam# [id number] Ordering Dr: Alison Dodson DO ADDENDUM by Dr. Robby Xie MD on 12/16/24 at 6340 . Reading Location: [place] [address] 12/16/242158 Date cc: Dr. Alison Dodson DO; No Primary Care Physician * Signed PROCEDURE: GALLBLADDER N/A REASON FOR EXAM: PAIN COMPARISON: Prior CT scan of the abdomen and pelvis dated November 29, 2024. FINDINGS: Liver: Hepatomegaly. The liver measures 18.2 cm. Gallbladder: Multiple gallstones. Positive sonographic Porter's sign. Gallbladder wall slightly thickened measuring 4 mm. Common bile duct: Normal measuring 5 mm. . Pancreas: Normal Other: Visualized portions of the right kidney are unremarkable. No right upper quadrant ascites. US/Gallbladder IMPRESSION: Multiple gallstones. Mildly thickened gallbladder wall. Positive sonographic Porter's sign. Hepatomegaly. Reading Location: [id number] CC: Dr. Alison Dodson DO; No Primary Care Physician Berry Picker: Signed Normal [facility] Glomerular filtration rate ( GFR) estimation/1.73 sq m using serum, plasma, or whole bOrdered By: Alison Dodson on 12-16-2024 GFR/1.73 sq M.predicted among non-blacks MDRD (S/P/Bld) [Vol rate/Area] 84 mL/min/{1.73_m2} >60 [facility] Comment on above: mL/min/1.73m2 CKD-EP I Creatinine Equation (2020) Hematocrit Auto (Bld) [Volum e fraction]Ordered By: Alison Dodson on 12-16-2024 Hematocrit (Bld) [Volume fraction] 35.9 % Low 37-47 [facility] Hemoglobin measurementOrdere d By: Alison Dodson on 12-16-2024 Hemoglobin (Bld) [Mass/Vol] 11.2 g/dL Low 12.0-15.0 [facility] Immature granulocytes/100 WB C Auto (Bld)Ordered By: Alison Dodson on 12-16-2024 Immature granulocytes/100 WBC (Bld) 0.300 % 0.0-0.9 [facility] Comment on above: IG% - Immature Granu locytes (promyelocytes, myelocytes and metamyelocytes) > 1% indicates that a LEFT SHIFT is Present. Ketones Test strip Ql (U)Ord ered By: Alison Dodson on 12-16-2024 Ketones Ql (U) Negative Negative [facility] - Chemistry and C hemistry - challengeOrdered By: Alison Dodson on 12-16-2024 AST [Catalytic activity/Vol] 22 U/L <32 [facility] Lipaseon 12-16-2024 Lipase [Catalytic activity/Vol] 38 U/L Normal 13-75 [facility] Comment on above: Result Comment: Travis reeves note: LIPASE revised reference range effective 22. New Lipase methodology. Expected to produce lower values than the previous assay method. NEW Reference Range: 13 - 75 U/L Performed By: #### L 700.6800, L501.2450, L500.2500, L100.0100, L500.3400 #### [facility] [address] [place], [address] Lipase measurementOrdered By : Alison Dodson on 12-16-2024 Lipase [Catalytic activity/Vol] 38 U/L 13-75 [facility] Comment on above: Please note:LIPASE r evised reference range effective 22. New Lipase methodology. Expected to produce lower values than the previous assay method. NEW Reference Range: 13 - 75 U/L Liver Profileon 12-16-2024 Albumin [Mass/Vol] 3.8 g/dL Normal 3.5-5.0 [facility] Comment on above: Performed By: #### L 700.6800, L501.2450, L500.2500, L100.0100, L500.3400 #### [facility] [address] [place], [address] ALK PHOS 81 U/L Normal 35-104 [facility] Comment on above: Performed By: #### L 700.6800, L501.2450, L500.2500, L100.0100, L500.3400 #### [facility] [address] [place], [address] ALT [Catalytic activity/Vol] 27 U/L Normal <=34 [facility] Comment on above: Performed By: #### L 700.6800, L501.2450, L500.2500, L100.0100, L500.3400 #### [facility] [address] [place], [address] AST [Catalytic activity/Vol] 22 U/L Normal <=31 [facility] Comment on above: Performed By: #### L 700.6800, L501.2450, L500.2500, L100.0100, L500.3400 #### [facility] [address] [place], [address] Bilirubin [Mass/Vol] 0.24 mg/dL Normal 0.00-1.30 [facility] Comment on above: Performed By: #### L 700.6800, L501.2450, L500.2500, L100.0100, L500.3400 #### [facility] [address] [place], [address] Bilirubin.direct [Mass/Vol] 0.11 mg/dL Normal 0.00-0.30 [facility] Comment on above: Performed By: #### L 700.6800, L501.2450, L500.2500, L100.0100, L500.3400 #### [facility] [address] [place], [address] Globulin (S) [Mass/Vol] 2.9 g/dL Normal 2.2-4.2 [facility] Comment on above: Performed By: #### L 700.6800, L501.2450, L500.2500, L100.0100, L500.3400 #### [facility] [address] [place], [address] T PROT 6.8 g/dL Normal 5.9-8.4 [facility] Comment on above: Performed By: #### L 700.6800, L501.2450, L500.2500, L100.0100, L500.3400 #### [facility] [address] [place], [address] MCV (mean corpuscular volume ) determinationOrdered By: Alison Dodson on 12-16-2024 MCV (RBC) [Entitic vol] 82.3 fL 81-99 [facility] Mean corpuscular hemoglobin (MCH) determinationOrdered By: Alison Dodson on 12-16-2024 MCH (RBC) [Entitic mass] 25.7 pg Low 27.0-32.0 [facility] Mean corpuscular hemoglobin concentration (MCHC) determinationOrdered By: Alison Dodson on 12-16-2024 MCHC (RBC) [Mass/Vol] 31.2 g/dL Low 32-36 [facility] Mean platelet volume determi nationOrdered By: Alison Dodson on 12-16-2024 Platelet mean volume (Bld) [Entitic vol] 11.1 fL 6.2-12.0 [facility] Microscopic analysis of urin e for red blood cells (RBC)Ordered By: Alison Dodson on 12-16-2024 Microscopic analysis of urine for red blood cells (RBC) 0 SEEN /hpf 0-5 [facility] Monocyte percentageOrdered B y: Alison Dodson on 12-16-2024 Monocytes/100 WBC (Bld) 7.3 % 0-10 [facility] Mucus LM Ql (Urine sed)Order ed By: Alison Dodson on 12-16-2024 Mucus Ql (Urine sed) 0 SEEN /hpf [facility] Neutrophil percentageOrdered By: Alison Dodson on 12-16-2024 Neutrophils/100 WBC (Bld) 65.2 % 47-70 [facility] Nitrite Test strip Ql (U)Ord ered By: Alison Dodson on 12-16-2024 Nitrite Ql (U) Negative Negative [facility] Nucleated red blood cell per centageOrdered By: Alison Dodson on 12-16-2024 Nucleated RBC/100 WBC (Bld) [Ratio] 0 % 0-5 [facility] Platelet countOrdered By: Brandon Dodson on 12-16-2024 Platelets (Bld) [#/Vol] 279 10*3/uL 150-450 [facility] Potassium measurement (mass/ volume)Ordered By: Alison Dodson on 12-16-2024 Potassium (Unsp spec) [Mass/Vol] 4.2 mmol/L 3.3-5.1 [facility] ,Urineon 12-16-2024 Beta HCG ( test) Ql (U) Negative Normal [facility] Comment on above: Result Comment: Very dilute urine specimens, as indicated by a low specific gravity, may not contain business services sales representative levels of hCG. If is still suspected, a first morning urine specimen should be collected 48 hours later and tested. Performed By: #### L 700.6800, L501.2450, L500.2500, L100.0100, L500.3400 #### [facility] [address], [place], [id number] Protein Test strip Ql (U)Ord ered By: Alison Dodson on 12-16-2024 Protein Ql (U) Negative Negative [facility] RBC Auto (Bld) [#/Vol]Ordere d By: Alison Dodson on 12-16-2024 RBC (Bld) [#/Vol] 4.36 10*6/uL 4.2-5.4 [facility] Serum creatinine measurement (mass/volume)Ordered By: Alison Dodson on 12-16-2024 Creatinine [Mass/Vol] 0.94 mg/dL 0.70-1.20 [facility] Serum globulin measurementOr dered By: Alison Dodson on 12-16-2024 Globulin (S) [Mass/Vol] 2.9 g/dL 2.2-4.2 [facility] Serum glucose measurement (m ass/volume)Ordered By: Alison Dodson on 12-16-2024 Glucose [Mass/Vol] 86 mg/dL 70-99 [facility] Serum or plasma alanine danielson otransferase (ALT) measurementOrdered By: Alison Dodson on 12-16-2024 ALT [Catalytic activity/Vol] 27 U/L <35 [facility] Serum or plasma albumin danitza urement (mass/volume)Ordered By: Alison Dodson on 12-16-2024 Albumin [Mass/Vol] 3.8 g/dL 3.5-5.0 [facility] Serum or plasma alkaline tate sphatase measurementOrdered By: Alison Dodson on 12-16-2024 ALP [Catalytic activity/Vol] 81 U/L 35-104 [facility] Serum or plasma calcium danitza urement (mass/volume)Ordered By: Alison Dodson on 12-16-2024 Calcium [Mass/Vol] 9.0 mg/dL 7.6-11.0 [facility] Serum or plasma urea nitroge n measurement (mass/volume)Ordered By: Alison Dodson on 12-16-2024 Urea nitrogen [Mass/Vol] 9 mg/dL 4-19 [facility] Sodium levelOrdered By: Zhane Dodson on 12-16-2024 Sodium [Moles/Vol] 138 mmol/L 133-145 [facility] Squamous epithelial cells de tection in urine sediment by light microscopyOrdered By: Alison Dodson on 12-16-2024 Epithelial cells.squamous LM Ql (Urine sed) 0-5 SEEN /hpf - [facility] Total proteinOrdered By: Tamara Dodson on 12-16-2024 Protein [Mass/Vol] 6.8 g/dL 5.9-8.4 [facility] Urinalysis, Completeon 12-16 BACTERIA RARE Normal None Seen [facility] Comment on above: Order Comment: COLLE CTOR TO SPECIFY Performed By: #### L 700.6800, L501.2450, L500.2500, L100.0100, L500.3400 #### [facility] [address] [place], [place], [id number] EPI,SQUAMOUS 0-5 SEEN Normal - [facility] Comment on above: Order Comment: KASHIF CTOR TO SPECIFY Performed By: #### L 700.6800, L501.2450, L500.2500, L100.0100, L500.3400 #### [facility] [address] [place], [address] Mucus Ql (Urine sed) 0 SEEN Normal [facility] Comment on above: Order Comment: KASHIF CTOR TO SPECIFY Performed By: #### L 700.6800, L501.2450, L500.2500, L100.0100, L500.3400 #### [facility] [address] [place], [address] RBC 0 SEEN Normal 0-5 [facility] Comment on above: Order Comment: KASHIF CTOR TO SPECIFY Performed By: #### L 700.6800, L501.2450, L500.2500, L100.0100, L500.3400 #### [facility] [address] [place], [address] WBC 0 SEEN Normal 0-5 [facility] Comment on above: Order Comment: KASHIF CTOR TO SPECIFY Performed By: #### L 700.6800, L501.2450, L500.2500, L100.0100, L500.3400 #### [facility] [address] [place], [address] Urine clarityOrdered By: Tamara Dodson on 12-16-2024 Clarity (U) Clear Clear [facility] Urine color determinationOrd ered By: Alison Dodson on 12-16-2024 Color (U) Yellow Yellow [facility] Urine glucose detectionOrder ed By: Alison Dodson on 12-16-2024 Glucose Ql (U) Normal mg/dl Normal [facility] Urine leukocyte esterase det ection by dipstickOrdered By: Alison Dodson on 12-16-2024 Leukocyte esterase Test strip Ql (U) Negative Negative [facility] Urine pHOrdered By: Alison orellana on 12-16-2024 pH (U) 7.0 [pH] 5.0 - 8.0 [facility] Urine testOrdered By: Alison Dodson on 12-16-2024 HCG ( test) Ql (U) Negative [facility] Comment on above: Very dilute urine sp ecimens, as indicated by a low specificgravity, may not contain business services sales representative levels of hCG. If is still suspected, a first morning urinespecimen should be collected 48 hours later and tested. Urine sediment bacteria coun t by microscopy (number/high power field)Ordered By: Alison Dodson on 12-16-2024 Bacteria LM.HPF (Urine sed) [#/Area] RARE /hpf None Seen [facility] Urine specific gravity measu rementOrdered By: Alisondenise Dodson on 12-16-2024 Specific gravity (U) [Rel density] 1.010 1.002-1.030 [facility] Urine urobilinogen measureme ntOrdered By: Alisondenise Dodson on 12-16-2024 Urobilinogen Ql (U) Normal mg/dl Normal [facility] White blood cell (WBC) count Ordered By: Alisondenise Dodson on 12-16-2024 WBC (Bld) [#/Vol] 6.8 10*3/uL 4.4-11.0 [facility] White blood cell countOrdere d By: Alison Dodson on 12-16-2024 White blood cell count 0 SEEN /hpf 0-5 [facility] Abdomen/Pelvis W IV Cont ONL Yon 11-29-2024 Abdomen/Pelvis W IV Cont ONLY [facility] Imaging Services [address] [place], [place] [address] Abdomen/Pelvis W IV Cont ONLY MR#: [id number] Acct: [id number] Name: AGUEDA LEWIS Kenneth Rep #: [id number] : 1995 F 29 From: Daysi feldman MD PCP: Care Physician,No Primary Status: REG ER Study: Abdomen/Pelvis W IV Cont ONLY Date of Exam: Exam# [id number] Ordering Dr: Shailesh Merritt DO PROCEDURE: ABDOMEN/PELVIS W IV CONT ONLY 11/29/2024 REASON FOR EXAM: RUQ PAIN TECHNIQUE: ABDOMEN/PELVIS W IV CONT ONLY Coronal and Sagittal reconstruction series were provided. CONTRAST:VOLUME: mL One or more dose reduction techniques were used (e.g., Automated exposure control, adjustment of the mA and/or kV according to patient size, use of iterative reconstruction technique. RADIATION DOSE SUMMARY: CTDlvol: mGy DLP: mGycm COMPARISON: none FINDINGS: Average sized liver showing homogenous parenchymal attenuation. No dilated intra or extra-hepatic biliary tracts. Gall bladder cholesterol stones and mild wall thickening with no related collections. Normal appearance of the pancreas with clear surrounding fat planes. The spleen, adrenal glands, aorta and IVC are unremarkable. Both kidneys are of average size and showing smooth outline with preserved parenchymal thickness. No renal calculi. No hydronephrosis. Distension of the urinary bladder showing mild wall thickening with no obvious masses. No obvious masses related to the pelvic viscera. Mild free pelvic fluid, likely physiological. The appendix appears unremarkable. No right iliac inflammatory changes. Mild gastric wall thickening, possibly gastritis. Advise clinical correlation. The examined ascending colon, the transverse colon, the descending colon small bowel loops are unremarkable. The stomach is unremarkable. No ascites or free air. No obvious pathologically enlarged lymph nodes. Scanned osseous structures show no osseous destruction. Scanned lung bases show no obvious abnormalities. CT/Abdomen/Pelvis W IV Cont ONLY IMPRESSION: Gall bladder cholesterol stones and mild wall thickening with no related collections. Mild gastric wall thickening, possibly gastritis. Advise clinical correlation. Urinary bladder wall thickening, possibly cystitis. Advise sonography, clinical and laboratory correlation. Reading Location: [place] [address] CC: Shailesh Merritt DO; No Primary Care Physician Berry Picker: Signed Normal [facility] Absolute lymphocyte countOrd ered By: Shailesh Merritt on 11-29-2024 Lymphocytes Auto (Unsp spec) [#/Vol] 2.50 10*3/uL 0.83-4.51 [facility] Absolute neutrophil countOrd ered By: Shailesh Merritt on 11-29-2024 Neutrophils (Bld) [#/Vol] 4.4 10*3/uL 2.0-7.7 [facility] Anion gap in Serum or Plasma Ordered By: Shailesh Merritt on 11-29-2024 Anion gap [Moles/Vol] 11 mmol/L 5-15 [facility] Automated lymphocyte count a s percentage of total leukocytesOrdered By: Shailesh Merritt on 11-29-2024 Lymphocytes/100 WBC Auto (Unsp spec) 31.7 % 19-41 [facility] BUN/creatinine ratioOrdered By: Shailesh Merritt on 11-29-2024 Urea nitrogen/Creatinine [Mass ratio] 8.2 mg/mg Low 10-20 [facility] Basic Metabolic Profile (BMP )on 11-29-2024 BUN/CRE 8.2 RATIO Low 10-20 [facility] Comment on above: Performed By: #### L 700.6800, L501.2450, L500.2500, L100.0100, L500.3400 #### [facility] [address] [place], [address] Calcium [Mass/Vol] 8.7 mg/dL Normal 7.6-11.0 [facility] Comment on above: Performed By: #### L 700.6800, L501.2450, L500.2500, L100.0100, L500.3400 #### [facility] [address] [place], [address] Chloride [Moles/Vol] 107 mmol/L Normal 98-108 [facility] Comment on above: Performed By: #### L 700.6800, L501.2450, L500.2500, L100.0100, L500.3400 #### [facility] [address] [place], [address] CO2 [Moles/Vol] 21.5 mmol/L Normal 21.0-32.0 [facility] Comment on above: Performed By: #### L 700.6800, L501.2450, L500.2500, L100.0100, L500.3400 #### [facility] [address] [place], [address] Creatinine [Mass/Vol] 1.05 mg/dL Normal 0.70-1.20 [facility] Comment on above: Performed By: #### L 700.6800, L501.2450, L500.2500, L100.0100, L500.3400 #### [facility] [address] [place], [address] ECRCL 114.29 ml/min Normal 50-250 [facility] Comment on above: Performed By: #### L 700.6800, L501.2450, L500.2500, L100.0100, L500.3400 #### [facility] [address] [place], [address] GAP 11 Normal 5-15 [facility] Comment on above: Performed By: #### L 700.6800, L501.2450, L500.2500, L100.0100, L500.3400 #### [facility] [address] [place], [address] GFR/1.73 sq M.predicted among non-blacks MDRD (S/P/Bld) [Vol rate/Area] 73 mL/min/{1.73_m2} Normal >60 [facility] Comment on above: Result Comment: mL/m in/1.73m2 CKD-EPI Creatinine Equation (2020) Performed By: #### L 700.6800, L501.2450, L500.2500, L100.0100, L500.3400 #### [facility] [address] [place], [address] Glucose [Mass/Vol] 93 mg/dL Normal 70-99 [facility] Comment on above: Performed By: #### L 700.6800, L501.2450, L500.2500, L100.0100, L500.3400 #### [facility] [address] [place], [address] Potassium [Moles/Vol] 3.7 mmol/L Normal 3.3-5.1 [facility] Comment on above: Performed By: #### L 700.6800, L501.2450, L500.2500, L100.0100, L500.3400 #### [facility] [address] [place], [address] Sodium [Moles/Vol] 139 mmol/L Normal 133-145 [facility] Comment on above: Performed By: #### L 700.6800, L501.2450, L500.2500, L100.0100, L500.3400 #### [facility] [address] [place], [address] Urea nitrogen [Mass/Vol] 9 mg/dL Normal 4-19 [facility] Comment on above: Performed By: #### L 700.6800, L501.2450, L500.2500, L100.0100, L500.3400 #### [facility] [address] [place], [address] Basophil percentageOrdered B y: Shailesh Merritt on 11-29-2024 Basophils/100 WBC (Bld) 0.5 % 0- [facility] Bilirubin directOrdered By: Shailesh Merritt on 11-29-2024 Bilirubin.direct [Mass/Vol] mg/dL 0.00-0.30 [facility] Bilirubin, totalOrdered By: Shailesh Merritt on 11-29-2024 Bilirubin [Mass/Vol] 0.17 mg/dL 0.00-1.30 [facility] CBC W/Diff, Automatedon 11-19 Absolute Lymph 2.50 X10 3/uL Normal 0.83-4.51 [facility] Comment on above: Performed By: #### L 700.6800, L501.2450, L500.2500, L100.0100, L500.3400 #### [facility] [address] [place], [address] Absolute Neut 4.4 X10 3/uL Normal 2.0-7.7 [facility] Comment on above: Performed By: #### L 700.6800, L501.2450, L500.2500, L100.0100, L500.3400 #### [facility] [address] [place], [address] Basophils/100 WBC (Bld) 0.5 % Normal 0-1 [facility] Comment on above: Performed By: #### L 700.6800, L501.2450, L500.2500, L100.0100, L500.3400 #### [facility] [address] [place], [address] Eosinophils/100 WBC (Bld) 2.9 % Normal 0-5 [facility] Comment on above: Performed By: #### L 700.6800, L501.2450, L500.2500, L100.0100, L500.3400 #### [facility] [address] [place], [address] Erythrocyte distribution width (RBC) [Ratio] 14.8 % High 11.6-14.6 [facility] Comment on above: Performed By: #### L 700.6800, L501.2450, L500.2500, L100.0100, L500.3400 #### [facility] [address] [place], [address] Hematocrit (Bld) [Volume fraction] 35.8 % Low 37-47 [facility] Comment on above: Performed By: #### L 700.6800, L501.2450, L500.2500, L100.0100, L500.3400 #### [facility] [address] [place], [address] Hemoglobin (Bld) [Mass/Vol] 11.3 g/dL Low 12.0-15.0 [facility] Comment on above: Performed By: #### L 700.6800, L501.2450, L500.2500, L100.0100, L500.3400 #### [facility] [address] [place], [address] IG% 0.100 Normal 0.0-0.9 [facility] Comment on above: Result Comment: IG% - Immature Granulocytes (promyelocytes, myelocytes and metamyelocytes) > 1% indicates that a LEFT SHIFT is Present. Performed By: #### L 700.6800, L501.2450, L500.2500, L100.0100, L500.3400 #### [facility] [address] [place], [address] Lymphocytes/100 WBC (Bld) 31.7 % Normal 19-41 [facility] Comment on above: Performed By: #### L 700.6800, L501.2450, L500.2500, L100.0100, L500.3400 #### [facility] [address] [place], [address] MCH (RBC) [Entitic mass] 25.9 pg Low 27.0-32.0 [facility] Comment on above: Performed By: #### L 700.6800, L501.2450, L500.2500, L100.0100, L500.3400 #### [facility] [address] [place], [address] MCHC (RBC) [Mass/Vol] 31.6 g/dL Low 32-36 [facility] Comment on above: Performed By: #### L 700.6800, L501.2450, L500.2500, L100.0100, L500.3400 #### [facility] [address] [place], [address] MCV (RBC) [Entitic vol] 82.1 fL Normal 81-99 [facility] Comment on above: Performed By: #### L 700.6800, L501.2450, L500.2500, L100.0100, L500.3400 #### [facility] [address] [place], [address] Monocytes/100 WBC (Bld) 8.6 % Normal 0-10 [facility] Comment on above: Performed By: #### L 700.6800, L501.2450, L500.2500, L100.0100, L500.3400 #### [facility] [address] [place], [address] Neutrophils/100 WBC (Bld) 56.2 % Normal 47-70 [facility] Comment on above: Performed By: #### L 700.6800, L501.2450, L500.2500, L100.0100, L500.3400 #### [facility] [address] [place], [address] Nucleated RBC (Bld) [#/Vol] 0 10*3/uL Normal 0-5 [facility] Comment on above: Performed By: #### L 700.6800, L501.2450, L500.2500, L100.0100, L500.3400 #### [facility] [address] [place], [address] Platelet mean volume (Bld) [Entitic vol] 10.8 fL Normal 6.2-12.0 [facility] Comment on above: Performed By: #### L 700.6800, L501.2450, L500.2500, L100.0100, L500.3400 #### [facility] [address] [place], [address] Platelets (Bld) [#/Vol] 308 10*3/uL Normal 150-450 [facility] Comment on above: Performed By: #### L 700.6800, L501.2450, L500.2500, L100.0100, L500.3400 #### [facility] [address] [place], [address] RBC (Bld) [#/Vol] 4.36 10*6/uL Normal 4.2-5.4 [facility] Comment on above: Performed By: #### L 700.6800, L501.2450, L500.2500, L100.0100, L500.3400 #### [facility] [address] [place], [address] RDW SD 44.4 fl High 35.1-43.9 [facility] Comment on above: Performed By: #### L 700.6800, L501.2450, L500.2500, L100.0100, L500.3400 #### [facility] [address] [place], [address] WBC (Bld) [#/Vol] 7.9 10*3/uL Normal 4.4-11.0 [facility] Comment on above: Performed By: #### L 700.6800, L501.2450, L500.2500, L100.0100, L500.3400 #### [facility] [address] [facility] [place], [address] Carbon dioxide, total [Moles /volume] in Central venous bloodOrdered By: Shailesh Merritt on 11-29-2024 CO2 [Moles/Vol] 21.5 mmol/L 21.0-32.0 [facility] Chloride assayOrdered By: Akila Merritt on 11-29-2024 Chloride [Moles/Vol] 107 mmol/L 98-108 [facility] Emergency Department Summary on 11-29-2024 Emergency Department Summary [facility] Medical Records Department [address] [place] [address] Emergency Department Summary 11/29/24 MR#: [id number] Acct: [id number] Name: AGUEDA LEWIS Rep #: [id number] : 1995 29 From: Shailesh Merritt DO PCP: Care Physician,No Primary Status:DEP ER Location: ED HPI History of Present Illness Chief Complaint: Abd Pain Informant: patient Narrative Narrative: Patient is a 29-year-old female with past ministry of anxiety and depression. She was seen roughly a year ago and had an ultrasound diagnosing her with gallstones. She states that she never followed up with general surgery to discuss need for cholecystectomy. She states that she has been doing well but this evening began with pain and nausea. She states that the pain is located in the right upper quadrant and feels similar in nature to her last gallbladder flare. She denies any fevers or chills trauma or known sick contacts. However with concern this could be an infection or irritation to her gallbladder she presents for evaluation [facility] Medical History (Updated 12/03/24 @ 05:[address] Shailesh Merritt DO) Gallstone Wears contact lenses Depression Anxiety Easy bruising Back pain Gastric reflux Vapes nicotine containing substance History of stress test Anemia Home Medications ???Medication ???Instructions ???Recorded ???Last Taken ???Type quetiapine 25 mg tablet 25 mg PO QHS 11/27/23 Unknown Hist ory sertraline 100 mg tablet 150 mg PO DAILY 11/27/23 Unknown H istory ondansetron 4 mg disintegrating 4 mg PO TID PRN nausea and 5 Unknown Rx tablet vomiting #21 tabs oxycodone-acetaminophen 5 mg-325 1 tab PO Q6H PRN pain 3 days #12 0 11/29/24 Unknown Rx mg tablet (Percocet) tabs Allergy/AdvReac Type Severity Reaction Status Date / Time No Known Allergies Allergy Verified 11/29/24 00:06 Family History Grandmother Diabetes Mother Heart disease Surgical History H/O adenoidectomy Social History Smoking Status: Current every day smoker tobacco type: e-cigarettes ROS ROS ED Constitutional Constitutional ED: Denies chills or fever(s) Eyes Eyes: Denies change in vision ENT ENT ED: Denies sore throat Cardiovascular Cardiovascular: Denies chest pain Respiratory/Chest Respiratory/Chest: Denies cough or dyspnea Gastrointestinal Gastrointestinal: Reports abdominal pain and nausea; Denies constipation, diarrhea or vomiting Genitourinary Genitourinary ED: Denies dysuria Musculoskeletal Musculoskeletal: Reports back pain; Denies myalgias Integumentary Denies rash Neurologic Neurologic: Denies headache(s) Hematologic/Lymphatic Hematologic/Lymphatic: Denies easy bleeding or easy bruising EXAM Physical Exam Const Vital Signs: 11/29/24 00:06 Temperature 97.8 F Temperature Source Oral Pulse Rate 65 Respiratory Rate 18 Blood Pressure 125/91 H Blood Pressure Mean 102 Pulse Ox 100 Positive well nourished, well developed and obese General Appearance ED: well developed Nutritional Appearance: obese HEENT Reports moist mucous membranes HEENT Narrative: Normocephalic atraumatic No tongue or lip swelling no oral lesions no airway edema or compromise Eyes PERRL and EOMs intact bilaterally General Eye ED: Negative for scleral icterus Neck supple Resp normal respiratory effort and clear to auscultation bilaterally Cardio regular rate and regular rhythm Rate: other Other Details: Radial and carotid pulses are equal and symmetric GI non-distended and no masses GI Narrative: Abdomen is soft and nondistended with normal active bowel sounds. There is pain on palpation in the midepigastric and right upper quadrant region. There is slight guarding in the right upper quadrant region. Overall negative Porter sign. No peritoneal signs. No rigidity or pulsatile mass. Auscultation: normoactive bowel sounds Palpation: soft Back/Spine no CVA tenderness Extremity normal to inspection Neuro oriented x3, CN's II-XII intact bilaterally and no sensory deficits noted Sensorium / Orientation: alert Motor Exam: strength 5/5 throughout Psych mental status grossly normal Skin no rashes or lesions noted General Skin Exam: Negative for jaundice MDM MDM MDM Narrative Medical decision making narrative: Patient presented to ER with stable vitals and a soft nonsurgical abdomen. Pain was greatest in the midepigastric and right upper quadrant region and there is concerned that she could have biliary colic versus acute cholecystitis versus pancreatitis or even complication. Therefore basic labs were obtained. Chart review w (more content not included)... Normal [facility] Eosinophil percentageOrdered By: Shailesh Merritt on 11-29-2024 Eosinophils/100 WBC (Bld) 2.9 % 0-5 [facility] Erythrocyte distribution wid th ratioOrdered By: Shailesh Merritt on 11-29-2024 Erythrocyte distribution width (RBC) [Ratio] 14.8 % High 11.6-14.6 [facility] Erythrocyte distribution wid th standard deviationOrdered By: Shailesh Merritt on 11-29-2024 Erythrocyte distribution width (RBC) [Ratio] 44.4 fl High 35.1-43.9 [facility] Glomerular filtration rate ( GFR) estimation/1.73 sq m using serum, plasma, or whole bOrdered By: Shailesh Merritt on 11-29-2024 GFR/1.73 sq M.predicted among non-blacks MDRD (S/P/Bld) [Vol rate/Area] 73 mL/min/{1.73_m2} >60 [facility] Comment on above: mL/min/1.73m2 CKD-EP I Creatinine Equation (2020) Hematocrit Auto (Bld) [Volum e fraction]Ordered By: Shailesh Merritt on 11-29-2024 Hematocrit (Bld) [Volume fraction] 35.8 % Low 37-47 [facility] Hemoglobin measurementOrdere d By: Shailesh Merritt on 11-29-2024 Hemoglobin (Bld) [Mass/Vol] 11.3 g/dL Low 12.0-15.0 [facility] Immature granulocytes/100 WB C Auto (Bld)Ordered By: Shailesh Merritt on 11-29-2024 Immature granulocytes/100 WBC (Bld) 0.100 % 0.0-0.9 [facility] Comment on above: IG% - Immature Granu locytes (promyelocytes, myelocytes and metamyelocytes) > 1% indicates that a LEFT SHIFT is Present. Laboratory - Chemistry and C hemistry - challengeOrdered By: Shailesh Merritt on 11-29-2024 AST [Catalytic activity/Vol] 18 U/L <32 [facility] Lipaseon 11-29-2024 Lipase [Catalytic activity/Vol] 40 U/L Normal 13-75 [facility] Comment on above: Result Comment: Travis reeves note: LIPASE revised reference range effective 22. New Lipase methodology. Expected to produce lower values than the previous assay method. NEW Reference Range: 13 - 75 U/L Performed By: #### L 700.6800, L501.2450, L500.2500, L100.0100, L500.3400 #### [facility] [address] [place], [address] Lipase measurementOrdered By : Shailesh Merritt on 11-29-2024 Lipase [Catalytic activity/Vol] 40 U/L 13-75 [facility] Comment on above: Please note:LIPASE r evised reference range effective 22. New Lipase methodology. Expected to produce lower values than the previous assay method. NEW Reference Range: 13 - 75 U/L Liver Profileon 11-29-2024 Albumin [Mass/Vol] 3.7 g/dL Normal 3.5-5.0 [facility] Comment on above: Performed By: #### L 700.6800, L501.2450, L500.2500, L100.0100, L500.3400 #### [facility] [address] [place], [address] ALK PHOS 76 U/L Normal 35-104 [facility] Comment on above: Performed By: #### L 700.6800, L501.2450, L500.2500, L100.0100, L500.3400 #### [facility] [address] [place], [address] ALT [Catalytic activity/Vol] 12 U/L Normal <=34 [facility] Comment on above: Performed By: #### L 700.6800, L501.2450, L500.2500, L100.0100, L500.3400 #### [facility] [address] [place], [address] AST [Catalytic activity/Vol] 18 U/L Normal <=31 [facility] Comment on above: Performed By: #### L 700.6800, L501.2450, L500.2500, L100.0100, L500.3400 #### [facility] [address] [place], [address] Bilirubin [Mass/Vol] 0.17 mg/dL Normal 0.00-1.30 [facility] Comment on above: Performed By: #### L 700.6800, L501.2450, L500.2500, L100.0100, L500.3400 #### [facility] [address] [place], [address] D BILI < 0.08 Normal 0.00-0.30 [facility] Comment on above: Performed By: #### L 700.6800, L501.2450, L500.2500, L100.0100, L500.3400 #### [facility] [address] [place], [address] Globulin (S) [Mass/Vol] 3.0 g/dL Normal 2.2-4.2 [facility] Comment on above: Performed By: #### L 700.6800, L501.2450, L500.2500, L100.0100, L500.3400 #### [facility] [address] [place], [address] T PROT 6.6 g/dL Normal 5.9-8.4 [facility] Comment on above: Performed By: #### L 700.6800, L501.2450, L500.2500, L100.0100, L500.3400 #### [facility] [address] [place], [address] MCV (mean corpuscular volume ) determinationOrdered By: Shailesh Merritt on 11-29-2024 MCV (RBC) [Entitic vol] 82.1 fL 81-99 [facility] Mean corpuscular hemoglobin (MCH) determinationOrdered By: Shailesh Merritt on 11-29-2024 MCH (RBC) [Entitic mass] 25.9 pg Low 27.0-32.0 [facility] Mean corpuscular hemoglobin concentration (MCHC) determinationOrdered By: Shailesh Merritt on 11-29-2024 MCHC (RBC) [Mass/Vol] 31.6 g/dL Low 32-36 [facility] Mean platelet volume determi nationOrdered By: Shailesh Merritt on 11-29-2024 Platelet mean volume (Bld) [Entitic vol] 10.8 fL 6.2-12.0 [facility] Monocyte percentageOrdered B y: Shailesh Merritt on 11-29-2024 Monocytes/100 WBC (Bld) 8.6 % 0-10 [facility] Neutrophil percentageOrdered By: Shailesh Merritt on 11-29-2024 Neutrophils/100 WBC (Bld) 56.2 % 47-70 [facility] Nucleated red blood cell per centageOrdered By: Shailesh Merritt on 11-29-2024 Nucleated RBC/100 WBC (Bld) [Ratio] 0 % 0-5 [facility] Platelet countOrdered By: Akila Merritt on 11-29-2024 Platelets (Bld) [#/Vol] 308 10*3/uL 150-450 [facility] Potassium measurement (mass/ volume)Ordered By: Shailesh Merritt on 11-29-2024 Potassium (Unsp spec) [Mass/Vol] 3.7 mmol/L 3.3-5.1 [facility] ,Serum,hCG Quali.on 11-29-2024 HCG, SERUM QUAL Negative Normal [facility] Comment on above: Performed By: #### L 700.6800, L501.2450, L500.2500, L100.0100, L500.3400 #### [facility] [address] [place], [address] RBC Auto (Bld) [#/Vol]Ordere d By: Shailesh Merritt on 11-29-2024 RBC (Bld) [#/Vol] 4.36 10*6/uL 4.2-5.4 [facility] Serum beta-hCG test, qualita tiveOrdered By: Shailesh Merritt on 11-29-2024 Beta HCG ( test) Ql Negative [facility] Serum creatinine measurement (mass/volume)Ordered By: Shailesh Merritt on 11-29-2024 Creatinine [Mass/Vol] 1.05 mg/dL 0.70-1.20 [facility] Serum globulin measurementOr dered By: Shailesh Merritt on 11-29-2024 Globulin (S) [Mass/Vol] 3.0 g/dL 2.2-4.2 [facility] Serum glucose measurement (m ass/volume)Ordered By: Shailesh Merritt on 11-29-2024 Glucose [Mass/Vol] 93 mg/dL 70-99 [facility] Serum or plasma alanine danielson otransferase (ALT) measurementOrdered By: Shailesh Merritt on 11-29-2024 ALT [Catalytic activity/Vol] 12 U/L <35 [facility] Serum or plasma albumin danitza urement (mass/volume)Ordered By: Shailesh Merritt on 11-29-2024 Albumin [Mass/Vol] 3.7 g/dL 3.5-5.0 [facility] Serum or plasma alkaline tate sphatase measurementOrdered By: Shailesh Merritt on 11-29-2024 ALP [Catalytic activity/Vol] 76 U/L 35-104 [facility] Serum or plasma calcium danitza urement (mass/volume)Ordered By: Shailesh Merritt on 11-29-2024 Calcium [Mass/Vol] 8.7 mg/dL 7.6-11.0 [facility] Serum or plasma urea nitroge n measurement (mass/volume)Ordered By: Shailesh Merritt on 11-29-2024 Urea nitrogen [Mass/Vol] 9 mg/dL 4-19 [facility] Sodium levelOrdered By: Henry Merritt on 11-29-2024 Sodium [Moles/Vol] 139 mmol/L 133-145 [facility] Total proteinOrdered By: Agapito Merritt on 11-29-2024 Protein [Mass/Vol] 6.6 g/dL 5.9-8.4 [facility] White blood cell (WBC) count Ordered By: Shailesh Merritt on 11-29-2024 WBC (Bld) [#/Vol] 7.9 10*3/uL 4.4-11.0 [facility] ----- AGUEDA LEWIS ([id number]) 1995 F Date Time Provider Department 10/16/24 PARAMJIT ROBERTSON3 During your visit today, we recorded the [...] also see in her chart that her press machine operator has been attempting to reach her regarding her clearance. They have also made multiple attempts including mailing her a letter to let her know they'd clear her if she has the EKG they ordered. Per [facility], she never had this done. I am postponing the patient's surgery. She will need to call the office when she is ready to proceed. Allergies As of Date: 10/16/2024 (No Known Allergies) Date Reviewed: 10/16/2024 Reviewed by: Astrid Garcia RN - Fully Assessed Reason for Visit: Surgery Cancelled [4163] Cmt: Re: Daryl Breaux 10/17/2024 Prescriptions as [...] Encounter Status:Closed by JAN DRAKE on 10/16/24 [facility] CNCOon 10-02-2024 CNCO Letter Text [facility] CNPNon 09-26-2024 CNPN Telephone (AGCARDPOB ) ----- AGUEDA LEWIS ([id number]) 1995 F Date Time Provider Department 09/26/24 ORESTES HEATH AGCARDPOPina During your visit today, we recorded the [...] cardiomyopathy [Z82.49] Order(s):ECG COMPLETE [ECG01] Order #: [id number] FUTURE Prescriptions as of 10/02/2024 - QUEtiapine [...] Encounter Status:Closed by ORESTES HEATH on 09/30/24 [facility] Darlyn 08-21-2024 CHRISTINEN Telephone (AGCARDPOB ) ----- AGUEDA LEWIS ([id number]) 1995 F Date Time Provider Department 08/21/24 ORESTES HEATH During your visit today, we [...] Encounter Status:Closed by NAE RAMOS on 08/21/24 [facility] CNCOon 08-20-2024 CNCO Letter Text [facility] CNOVon 08-01-2024 CNOV Office Visit (UCWSTR ) ----- AGUEDA LEWIS ([id number]) 1995 F Date Time Provider Department 08/01/24 11:00 AM [facility] During your visit today, we recorded the [...] is alert. Comments: Normal strength in hand duct layer, pincer grasp, and finger abduction. ASSESSMENT/PLAN: 1. [...] GENERAL 3V OR MORE AP/TRUE AP/OTHER LEFT [8072131] Order #: [id number] FUTURE CONSULT TO ORTHOPAEDICS [9026] Order #: [id number]: 1 FUTURE ibuprofen (MOTRIN) 600 mg tabletTake [...] 10 days. (more content not included)... Normal [facility] XR SHLDR >/=3V AP/JOSUE AP/OTH R [...] Negative 3 views of the left shoulder. Berry Picker: [email or web address] Transcribe Date/Time: Aug 01 2024 11:41A Dictated by : PRISCILLA GOODRICH MD This examination was interpreted and the report reviewed and electronically signed by: PRISCILLA GOODRICH MD on Aug 01 2024 11:45AM EST [id number] Normal [facility] XR Shoulder - left 3 Viewson 08-01-2024 IMPRESSION: Negative 3 views of the left shoulder. Berry Picker: [email or web address] Transcribe Date/Time: Aug 01 2024 11:41A [...] soft tissue swelling. DIVISION OF RADIOLOGY Provider, [facility] - 08/01/2024 * * *Final Report* * [...] Negative 3 views of the left shoulder. Berry Picker: [email or web address] Transcribe Date/Time: Aug 01 2024 11:41A Dictated by : PRISCILLA GOODRICH MD This examination was interpreted and the report reviewed and electronically signed by: PRISCILLA GOODRICH MD on Aug 01 2024 11:45AM EST [facility] Radiology Study observation (narrative) [facility] XR Shoulder - left 3 ViewsOr dered By: Ccpeter Provider on 08-01-2024 [facility] CNOVon 07-08-2024 CNOV Office Visit (AGGENS 3) ----- AGUEDA LEWIS ([id number]) 1995 F Date Time Provider Department 07/08/24 3:00 PM PARAMJIT ROBERTSON AGGENS3 During your visit today, we recorded the following information about you: Pulse Respiration Blood pressure Weight 77/minute 20/minute 116/71 121.6 kg Height 1.803 m Paramjit Robertson MD 07/08/2024 4:50 PM Signed Agueda Cooper Joshua is a 29 year old female who is here for reevaluation. We last saw her about a year ago and at that point recommended a cholecystectomy. She reported having some cardiac issues and went to see a press machine operator. She represents today for reevaluation regarding cholecystectomy. [...] 4 - Moderate Paramjit Robertson M.D., F.A.C.S. Paramjit Robertson MD 07/08/2024 3:20 PM Signed Thank you [...] harmless gas (more content not included)... Normal [facility] [place] 06-17-2024 Indication irregular menses Impression [...] Read By: Carey Reyes M.D. MATERNAL MEDICINE [facility] [place] 06-14-2024 Radiology Study observation (narrative) [facility] CNOVon 06-03-2024 CNOV Office Visit (OBGYWM ) ----- AGUEDA LEWIS Kenneth ([id number]) 1995 F Date Time Provider Department 06/03/24 3:30 PM ЕЛЕНА KIM OBFRANCES During your visit today, we recorded the following information about you: Blood pressure Weight Height Last Period 122/68 121.7 kg 1.788 m 04/24/24 Елена Kim APRN.ADHESIVE BANDAGE MACHINE OPERATOR 06/03/2024 3:22 PM Signed Patient declined belt builder. fatuma is a 29 year old who [...] L2 SAB0 IAB0 Ectopic0 Multiple0 Live Births2 It Sales Consultant History LMP: 04/24/2024 (Exact Date), Having periods Age at Menarche: Age at First : Age at Menopause: It Sales Consultant History Comments: Sexual Activity: Yes; Male Contraception: [...] status: current everyday user Substances: Flavoring Devices: TTA Marineble tank Substance Use Topics Alcohol use: No [...] discussed with the Patient or Patient's Authorized Animal Surgeon. As applicable, any other physician, advance practice provider, medical student, or other health professional student that will be observing or involved in the sensitive examination for educational or training purposes was discussed with the Patient or Authorized Animal Surgeon. The Patient or Authorized Animal Surgeon has agreed to proceed with the sensitive [...] external genitalia normal, normal Bartholin's glands, urethra, [place]'s glands, no vulvar lesions, no cervical lesions, [...] PCOS panel (more content not included)... Normal [facility] DHEA-S BLDon 06-03-2024 DHEA-S [Mass/Vol] 183.5 ug/dL Normal 98.8-340.0 [facility] Comment on above: Order Comment: Speci men Type: BLOOD SPECIMENOrdering Facility: [facility] Address: [address] [place] [address] Result Comment: Refe rence ranges are age and gender specific. For additional information, reference range tables can be found in the laboratory test directory. The normal values are based on the following source: Dehydroepiandrosterone sulfate (DHEA S) [package insert V 17.0 Angolan]. [facility], [place], [place]: December 2012. Performed By: #### 1 0501-5, 63938-0, 2243-4, DHEAS ####[facility] [id number] [place] [address] [place] Estradiol SerPl-mCncon 06-03 E2 [Mass/Vol] 101 pg/mL Normal [facility] Comment on above: Order Comment: Speci men Type: BLOOD SPECIMENOrdering Facility: [facility] Address: [address] [place] [address] Result Comment: This test is not suitable [...] 3243 pg/mL Second trimester : 1561 to 96061 pg/mL Third trimester : 8285 to >70483 pg/mL Post-menopausal Estradiol reference range: < 41 pg/mL Reference: 1. Estradiol - E2 (Estradiol III) [package insert V 3.0 Angolan]. [facility], [place], [place], October 2015. Performed By: #### 1 0501-5, 46084-0, 224-4, DHEAS ####[facility] [id number] [place] [address] [place] FSH SerPl-aCncon 06-03-2024 Follitropin Qn 3.9 m[IU]/mL Normal See comment [facility] Comment on above: Order Comment: Speci men Type: BLOOD SPECIMENOrdering Facility: [facility] Address: [address] [place] [address] Result Comment: Refe lowellce range: Follicular: 3.5-12.5 mIU/mL Ovulation: 4.7-21.5 mIU/mL Luteal: 1.7-7.7 mIU/mL Postmenopausal: 25.8-134.8 mIU/mL Performed By: #### 1 0501-5, 71127-5, 2243-4, DHEAS ####[facility] [id number] [place] [address] [place] HIGH RISK HUMAN PAPILLOMA [place]IL[place] (HPV), PCR FOR DETECTION AND GENOTYPINGon 06-03-2024 HPV 16 Ag Ql (Unsp spec) Not detected Normal Not detected [facility] Comment on above: Order Comment: Speci men Type: FLUID SPECIMENOrdering Facility: [facility] Address: [address] [place] [address] Performed By: #### H PVHRT ####[facility] LABIA [id number] [place] [address] [place] HPV 18 Ag Ql (Unsp spec) Not detected Normal Not detected [facility] Comment on above: Order Comment: Speci men Type: FLUID SPECIMENOrdering Facility: [facility] Address: [address] [place] [address] Performed By: #### H PVHRT ####[facility]IA [id number] [place] [address] [place] HPV 31+33+35+39+45+51+52+5 6+58+59+66+68 DNA ELHAM+probe Ql (Cvx) Not detected Normal Not detected [facility] Comment on above: Order Comment: Speci men Type: FLUID SPECIMENOrdering Facility: [facility] Address: [address] [place] [address] Result Comment: High Risk HPV Other Type includes HPV types 31, 33, 35, 39, 45, 51, 52, 56, 58, 59, 66 and 68. Performed By: #### H PVHRT ####[facility] [id number] [place] [address] [place] HYDROXYPROGESTERONE-17on 17-HYDROXYPROGESTERONE QUANTITATIVE BY HPLC-MS/MS, SERUM OR PLASMA 129.60 ng/dL Normal <=206.00 [facility] Comment on above: Order Comment: Speci men Type: BLOOD SPECIMENOrdering Facility: [facility] Address: [address] [place] [address] Result Comment: INTERPRETIVE INFORMATION for 17-Hydroxyprogesterone in females: Follicular 15 to 70 ng/dL Luteal 35 to 290 ng/dL REFERENCE INTERVAL: 17-Hydroxyprogesterone Qnt, HPLC-MS/MS Access complete set of age- and/or gender-specific reference intervals for this test in the [facility] Test Directory (basestone). This test was developed and its performance characteristics determined by [facility]. It has not been cleared or approved by the US Food and Drug Administration. This test was performed in a CLIA certified laboratory and is intended for clinical purposes. Performed By: [facility] [address] [place] [address] Technical Specialist Cytology: Victor M Zapata MD, PhD CLIA Number: [id number] Performed By: #### H PROG ####[facility] [id number] [place] [address] HbA1c (Bld)on 06-03-2024 Average glucose Estimated from glycated hemoglobin (Bld) [Mass/Vol] 108 mg/dL Normal [facility] Comment on above: Order Comment: Speci men Type: BLOOD SPECIMENOrdering Facility: [facility] Address: [address] [place] [address] Result Comment: eAG: (Estimated average glucose) is a calculated value from HgbA1c and is business services sales representative of the average blood glucose level in the last 2-3 month period. Performed By: #### 5 5454-3 ####[facility] [id number] [address] STATES OF [facility] HbA1c (Bld) [Mass fraction] 5.4 % Normal 4.3-5.6 [facility] Comment on above: Order Comment: Speci jericho Type: BLOOD SPECIMENOrdering Facility: [facility] Address: [address] [place] [address] Result Comment: Amer [place] Diabetes Association guidelines indicate that patients with HgbA1c in the range 5.7-6.4% are at increased risk for development of diabetes, and intervention by lifestyle modification may be beneficial. HgbA1c greater or equal to 6.5% is considered diagnostic of diabetes. Performed By: #### 5 5454-3 ####[facility] [id number] [place] [address] [place] LH SerPl-aCncon 06-03-2024 Lutropin Qn 8.2 m[IU]/mL Normal See comment [facility] Comment on above: Order Comment: Speci men Type: BLOOD SPECIMENOrdering Facility: [facility] Address: [address] [place] [address] Result Comment: Refe rence range: Follicular: 2.4-12.6 mIU/mL Midcycle: 14.0-95.6 mIU/mL Luteal: 1.0-11.4 mIU/mL Post Holly: 7.7-58.5 mIU/mL Performed By: #### 1 0501-5, 75284-9, 2243-4, DHEAS ####[facility] [id number] [address] [place] PAP TESTon 06-03-2024 ADEQUACY Satisfactory for interpretation. Normal [facility] Comment on above: Order Comment: Speci men Type: FLUID SPECIMENOrdering Facility: [facility] Address: [address] [place] [address] Performed By: #### L [id number] ####[facility] [id number] [place] [address] [place] CASE REPORT Normal 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 Comment on above: Order Comment: Speci men Type: FLUID SPECIMENOrdering Facility: [facility] Address: [address] [id number] Performed By: #### L [id number] ####[facility] [id number] [place] [id number] [place] CYTOLOGY PAP OTHER INTERPRETATION Trichomonas vaginalis. Normal [facility] Comment on above: Order Comment: Speci men Type: FLUID SPECIMENOrdering Facility: [facility] Address: [address] [place] [address] Performed By: #### L [id number] ####[facility] [id number] [place] [address] [place] FINAL PERFORMING LAB Normal [facility] Comment on above: Order Comment: Speci men Type: FLUID SPECIMENOrdering Facility: [facility] Address: [address] [place] [address] Result Comment: Tech nical component, a/c tech screening performed at [facility], [address] [place] [address] CLIA# [id number] Diagnostic interpretation performed at [facility], [address] [place] [address] CLIA# [id number] Technical Specialist Cytology: Jose Perrin M.D. Performed By: #### L [id number] ####[facility] [id number] [place] [id number] [place] INTERPRETATION, CYTOLOGY, PEER COUNSELOR Normal [facility] Comment on above: Order Comment: Speci men Type: FLUID SPECIMENOrdering Facility: [facility] Address: [address] [place] [address] Result Comment: Nega tive for intraepithelial lesion or malignancy. Performed By: #### L [id number] ####[facility] [id number] [place] [id number] [place] LMP 04/24/[address] [facility] Comment on above: Order Comment: Speci men Type: FLUID SPECIMENOrdering Facility: [facility] Address: [address] [place] [address] Performed By: #### L [id number] ####[facility] [id number] [place] [address] [place] PAP DISCLAIMER COMMENT The Pap Smear is a screening test for cervical cancer. False negative results occur with all screening tests, emphasizing the need for rescreening at recommended intervals, and clinical correlation. Normal [facility] Comment on above: Order Comment: Speci men Type: FLUID SPECIMENOrdering Facility: [facility] Address: [address] [place] [address] Performed By: #### L [id number] ####[facility] [id number] [address] [place] PAP CONSUMER ADVOCATE COMMENT This specimen has be en analyzed by the ThinPrep Imaging System, an automated imaging and review system, which assists the laboratory in evaluating cells on ThinPrep Pap tests. Following automated imaging, selected muller from every slide are reviewed by a a/c tech. Normal [facility] Comment on above: Order Comment: Speci men Type: FLUID SPECIMENOrdering Facility: [facility] Address: [address] [place] [address] Performed By: #### L [id number] ####[facility] [id number] [place] [address] [place] Prolactin SerPl-mCncon 06-03 Prolactin [Mass/Vol] 11.7 ng/mL Normal 4.4-33.8 [facility] Comment on above: Order Comment: Speci men Type: BLOOD SPECIMENOrdering Facility: [facility] Address: [address] [place] [address] Result Comment: Prol actin test is performed using the [facility] Electrochemiluminescence Immunoassay method. Results obtained with different methods or kits cannot be used interchangeably. Performed By: #### 2 842-3, 3016-3 ####[facility] [id number] [facility] [place] [address] [place] TESTOSTERONE, FREE AND TOTAL , BY EQUILIBRIUM ULTRAFILTRATION MASS SPECTROMETRYon 06-03-2024 Testosterone [Mass/Vol] 31.4 ng/dL Normal 10.0-55.0 [facility] Comment on above: Order Comment: Speci men Type: BLOOD SPECIMENOrdering Facility: [facility] Address: [address] [place] [address] Performed By: #### T FTEST ####[facility] [id number] [place] [address] Testosterone Free [Mass/Vol] 0.53 ng/dL Normal 0.10-0.85 [facility] Comment on above: Order Comment: Speci men Type: BLOOD SPECIMENOrdering Facility: [facility] Address: [address] [place] [address] Performed By: #### T FTEST ####[facility] LABCLIA [id number] [place] [address] Testosterone Free/Testosterone.tota l [Mass fraction] 1.69 % Normal 0.50-2.80 [facility] Comment on above: Order Comment: Speci men Type: BLOOD SPECIMENOrdering Facility: [facility] Address: [address] [place] [address] Performed By: #### T FTEST ####[facility] LABCLIA [id number] [place] [address] TSH SerPl-aCncon 06-03-2024 TSH Qn 1.030 m[IU]/L Normal 0.270-4.200 [facility] Comment on above: Order Comment: Speci men Type: BLOOD SPECIMENOrdering Facility: [facility] Address: [address] [place] [address] Result Comment: If t he patient is , TSH reference range varies by gestational period: First Trimester (weeks 9-12): 0.180-2.990 mIU/L Second Trimester: 0.110-3.980 mIU/L Third Trimester: 0.480-4.710 mIU/L Lonnie Wynn et al. A Practical Approach for the Verifications and Determination of Site- and Trimester-Specific Reference Intervals for Thyroid Function tests in . Thyroid, 2019:29:3:412-420. Gee Zapata et al. 2017 Guidelines of the [place] Thyroid Association for the Diagnosis and Management of Thyroid Disease during and the . Thyroid, 2017:27:3:315-389. Performed By: #### 2 842-3, 3016-3 ####[facility] [id number] [address] 04-[facility]-2024 [facility] [place] ----- AGUEDA LEWIS ([id number]) 1995 F Date Time Provider Department 04/25/24 [...] Encounter Status:Closed by CHRISTINE LEMON on 04/25/[address] [facility] ECHOon 04-23-2024 CONCLUSIONS: - Technically difficult exam [...] the prior echocardiographic exam performed on 09/24/2013. ([place]). There is no significant change. * * * Final * * * [facility] Echocardiography Report: Transthoracic Echo [facility] Date of service: 04/23/2024 12:42:52 PM [facility] Ordering physician: ORESTES HEATH Indication: Family [...] no pericardial effusion. [facility] Echocardiography Echocardiography Rep ort: Transthoracic Echo [facility] Date of service: 04/23/2024 12:42:52 PM [facility] Ordering physician: ORESTES HEATH Indication: Family [...] the prior echocardiographic exam performed on 09/24/2013. ([place]). There is no significant change. * * * Final * * * CC [employer] [facility] : [id number] Normal [facility] Progress Noteon 04-04-2024 Progress Note Chart reviewed of ED follow up Seen in [facility] ED on 04/03/24 Reason: Chest pain Discharge instructions: Follow up with your primary care physician Attempted to call patient. Message said number is not available. No voice mail option. ED message and education sent via [employer] [facility] Basic metabolic 2000 panelon 04-03-2024 Anion gap [Moles/Vol] 8 mmol/L Normal 8-15 [facility] Comment on above: Order Comment: Speci men Type: BLOOD SPECIMENOrdering Facility: [facility] Address: [address] [place] [address] Performed By: #### 1 9123-6, 75821-2 ####[facility] LABORATORYCLIA [id number] [place] [address] [place] Calcium [Mass/Vol] 9.5 mg/dL Normal 8.5-10.2 [facility] Comment on above: Order Comment: Speci men Type: BLOOD SPECIMENOrdering Facility: [facility] Address: [address] [place] [address] Performed By: #### 1 2312-4, 59521-2 ####[facility] LABORATORYCLIA [id number] [place] [address] [place] Chloride [Moles/Vol] 103 mmol/L Normal 98-107 [facility] Comment on above: Order Comment: Speci men Type: BLOOD SPECIMENOrdering Facility: [facility] Address: [address] [place] [address] Performed By: #### 1 9123-9, 15475-7 ####[facility] LABORATORYCLIA [id number] [address] STATES OF [facility] CO2 [Moles/Vol] 25 mmol/L Normal 22-30 [facility] Comment on above: Order Comment: Speci men Type: BLOOD SPECIMENOrdering Facility: [facility] Address: [address] [place] [address] Performed By: #### 1 91239, ####[facility] LABORATORYCLIA [id number] [address] OF [facility] Creatinine [Mass/Vol] 0.94 mg/dL Normal 0.58-0.96 [facility] Comment on above: Order Comment: Speci men Type: BLOOD SPECIMENOrdering Facility: [facility] Address: [address] [place] [address] Performed By: #### 1 91239, ####[facility] LABORATORYCLIA [id number] [address] Creatinine and Glomerular filtration rate.predicted panel (S/P/Bld) 84 mL/min/1.73m??? Normal >=60 [facility] Comment on above: Order Comment: Speci men Type: BLOOD SPECIMENOrdering Facility: [facility] Address: [address] [place] [address] Result Comment: Makayla mated Glomerular Filtration Rate [...] actual GFR. Performed By: #### 1 9123-9, 31823-9 ####[facility] LABORATORYCLIA [id number] [address] [place] Glucose [Mass/Vol] 107 mg/dL High 74-99 [facility] Comment on above: Order Comment: Speci men Type: BLOOD SPECIMENOrdering Facility: [facility] Address: [address] [place] [address] Result Comment: The [place] Diabetes Association (ADA) provides guidance for cutoff [...] Standards of Medical Care in Diabetes 2016, [place] Diabetes Association. Diabetes Care. 2016.39(Suppl 1). Performed By: #### 1 9123-9, 25262-6 ####[facility] LABORATORYCLIA [id number] [place] [address] [place] Potassium [Moles/Vol] 4.4 mmol/L Normal 3.7-5.1 [facility] Comment on above: Order Comment: Vanessa echavarria Type: BLOOD SPECIMENOrdering Facility: [facility] Address: [address] [place] [address] Performed By: #### 1 9123-9, 18317-3 ####[facility] LABORATORYCLIA [id number] [place] [address] [place] Sodium [Moles/Vol] 136 mmol/L Normal 136-144 [facility] Comment on above: Order Comment: Gennyi men Type: BLOOD SPECIMENOrdering Facility: [facility] Address: [address] [place] [address] Performed By: #### 1 9123-9, 83846-7 ####[facility] LABORATORYCLIA [id number] [place] [address] [place] Urea nitrogen [Mass/Vol] 9 mg/dL Normal 7-21 [facility] Comment on above: Order Comment: Speci men Type: BLOOD SPECIMENOrdering Facility: [facility] Address: [facility] [place] [address] Performed By: #### 1 9123-9, 48510-0 ####[facility] LABORATORYCLIA [id number] [place] [address] [place] CBC W Auto Differential pane l (Bld)on 04-03-2024 Basophils (Bld) [#/Vol] 0.04 10*3/uL Normal <0.11 [facility] Comment on above: Order Comment: Speci men Type: BLOOD SPECIMENOrdering Facility: [facility] Address: [address] [place] [address] Performed By: #### 5 7021-8 ####[facility] LABORATORYCLIA [id number] [address] [place] Basophils/100 WBC (Bld) 0.5 % Normal [facility] Comment on above: Order Comment: Speci men Type: BLOOD SPECIMENOrdering Facility: [facility] Address: [address] [place] [address] Performed By: #### 5 7021-8 ####[facility] LABORATORYCLIA [id number] [address] Differential cell count method Nom (Bld) Auto Normal [facility] Comment on above: Order Comment: Speci men Type: BLOOD SPECIMENOrdering Facility: [facility] Address: [address] [place] [address] Performed By: #### 5 7021-8 ####[facility] LABORATORYCLIA [id number] [place] [address] [place] Eosinophils (Bld) [#/Vol] 0.07 10*3/uL Normal <0.46 [facility] Comment on above: Order Comment: Speci men Type: BLOOD SPECIMENOrdering Facility: [facility] Address: [address] [place] [address] Performed By: #### 5 7021-8 ####[facility]ORATORYCLIA [id number] [place] [address] [place] Eosinophils/100 WBC (Bld) 0.9 % Normal [facility] Comment on above: Order Comment: Speci men Type: BLOOD SPECIMENOrdering Facility: [facility] Address: [facility] [place] [address] Performed By: #### 5 7021-8 ####[facility] LABORATORYCLIA [id number] [place] [address] [place] Erythrocyte distribution width (RBC) [Ratio] 13.7 % Normal 11.5-15.0 [facility] Comment on above: Order Comment: Speci men Type: BLOOD SPECIMENOrdering Facility: [facility] Address: [address] [place] [address] Performed By: #### 5 7021-8 ####[facility] LABORATORYCLIA [id number] [address] [place] Hematocrit (Bld) [Volume fraction] 37.4 % Normal 36.0-46.0 [facility] Comment on above: Order Comment: Speci men Type: BLOOD SPECIMENOrdering Facility: [facility] Address: [address] [place] [address] Performed By: #### 5 7021-8 ####[facility] LABORATORYCLIA [id number] [place] [address] [place] Hemoglobin (Bld) [Mass/Vol] 11.7 g/dL Normal 11.5-15.5 [facility] Comment on above: Order Comment: Speci men Type: BLOOD SPECIMENOrdering Facility: [facility] Address: [address] [place] [address] Performed By: #### 5 7021-8 ####[facility] LABORATORYCLIA [id number] [address] [place] Immature granulocytes (Bld) [#/Vol] 0.04 10*3/uL Normal <0.10 [facility] Comment on above: Order Comment: Speci men Type: BLOOD SPECIMENOrdering Facility: [facility] Address: [address] [place] [address] Performed By: #### 5 7021-8 ####[facility]ORATORYCLIA [id number] [address] OF [facility] Immature granulocytes/100 WBC (Bld) 0.5 % Normal [facility] Comment on above: Order Comment: Speci men Type: BLOOD SPECIMENOrdering Facility: [facility] Address: [address] [place] [address] Performed By: #### 5 7021-8 ####[facility] LABORATORYCLIA [id number] [place] [address] [place] Lymphocytes (Bld) [#/Vol] 1.14 10*3/uL Normal 1.00-4.00 [facility] Comment on above: Order Comment: Speci men Type: BLOOD SPECIMENOrdering Facility: [facility] Address: [address] [place] [address] Performed By: #### 5 7021-8 ####[facility] LABORATORYCLIA [id number] [address] Lymphocytes/100 WBC (Bld) 14.0 % Normal [facility] Comment on above: Order Comment: Speci men Type: BLOOD SPECIMENOrdering Facility: [facility] Address: [address] [place] [address] Performed By: #### 5 7021-8 ####[facility] LABORATORYCLIA [id number] [address] [place] MCH (RBC) [Entitic mass] 26.5 pg Normal 26.0-34.0 [facility] Comment on above: Order Comment: Speci men Type: BLOOD SPECIMENOrdering Facility: [facility] Address: [address] [place] [address] Performed By: #### 5 7021-8 ####[facility] LABORATORYCLIA [id number] [address] [place] MCHC (RBC) [Mass/Vol] 31.3 g/dL Normal 30.5-36.0 [facility] Comment on above: Order Comment: Speci men Type: BLOOD SPECIMENOrdering Facility: [facility] Address: [address] [place] [address] Performed By: #### 5 7021-8 ####[facility] LABORATORYCLIA [id number] [place] [address] [place] MCV (RBC) [Entitic vol] 84.8 fL Normal 80.0-100.0 [facility] Comment on above: Order Comment: Speci men Type: BLOOD SPECIMENOrdering Facility: [facility] Address: [address] [place] [address] Performed By: #### 5 7021-8 ####[facility] LABORATORYCLIA [id number] [place] [address] [place] Monocytes (Bld) [#/Vol] 0.55 10*3/uL Normal <0.87 [facility] Comment on above: Order Comment: Speci men Type: BLOOD SPECIMENOrdering Facility: [facility] Address: [address] [place] [address] Performed By: #### 5 7021-8 ####[facility] LABORATORYCLIA [id number] [address] [place] Monocytes/100 WBC (Bld) 6.8 % Normal [facility] Comment on above: Order Comment: Speci men Type: BLOOD SPECIMENOrdering Facility: [facility] Address: [address] [place] [address] Performed By: #### 5 7021-8 ####[facility] LABORATORYCLIA [id number] [place] [address] [place] Neutrophils (Bld) [#/Vol] 6.28 10*3/uL Normal 1.45-7.50 [facility] Comment on above: Order Comment: Speci men Type: BLOOD SPECIMENOrdering Facility: [facility] Address: [address] [place] [address] Performed By: #### 5 7021-8 ####[facility] LABORATORYCLIA [id number] [place] [address] [place] Neutrophils/100 WBC (Bld) 77.3 % Normal [facility] Comment on above: Order Comment: Speci men Type: BLOOD SPECIMENOrdering Facility: [facility] Address: [address] [place] [address] Performed By: #### 5 7021-8 ####[facility] LABORATORYCLIA [id number] [address] Nucleated RBC (Bld) [#/Vol] 10*3/uL Normal <0.01 [facility] Comment on above: Order Comment: Speci men Type: BLOOD SPECIMENOrdering Facility: [facility] Address: [address] [place] [address] Performed By: #### 5 7021-8 ####[facility] LABORATORYCLIA [id number] [address] Nucleated RBC/100 WBC (Bld) [Ratio] 0.0 /[address] [facility] Comment on above: Order Comment: Speci men Type: BLOOD SPECIMENOrdering Facility: [facility] Address: [address] [place] [address] Performed By: #### 5 7021-8 ####[facility] LABORATORYCLIA [id number] [address] [place] Platelet mean volume (Bld) [Entitic vol] 10.4 fL Normal 9.0-12.7 [facility] Comment on above: Order Comment: Speci men Type: BLOOD SPECIMENOrdering Facility: [facility] Address: [address] [place] [address] Performed By: #### 5 7021-8 ####[facility] LABORATORYCLIA [id number] [address] [place] Platelets (Bld) [#/Vol] 333 10*3/uL Normal 150-400 [facility] Comment on above: Order Comment: Speci men Type: BLOOD SPECIMENOrdering Facility: [facility] Address: [address] [place] [address] Performed By: #### 5 7021-8 ####[facility] LABORATORYCLIA [id number] [place] [address] [place] RBC (Bld) [#/Vol] 4.41 10*6/uL Normal 3.90-5.20 [facility] Comment on above: Order Comment: Speci men Type: BLOOD SPECIMENOrdering Facility: [facility] Address: [address] [place] [address] Performed By: #### 5 7021-8 ####[facility] LABORATORYCLIA [id number] [address] OF [facility] WBC (Bld) [#/Vol] 8.12 10*3/uL Normal 3.70-11.00 [facility] Comment on above: Order Comment: Speci men Type: BLOOD SPECIMENOrdering Facility: [facility] Address: [address] [place] [address] Performed By: #### 5 7021-8 ####[facility] LABORATORYCLIA [id number] [address] ECG COMPLETEon 04-03-2024 ECG COMPLETE Ventricular Rate : 8 5 BPM Atrial Rate : 85 BPM P-R Interval : 162 ms QRS Duration : 76 ms Q-T Interval : 354 ms QTC Calculation(Bazett) : 421 ms Calculated P [place] : 65 degrees Calculated R [place] : 22 degrees Calculated T [place] : 33 degrees NORMAL SINUS RHYTHM NORMAL ECG NO PREVIOUS ECGS AVAILABLE Confirmed by BRENNA SANTIAGO MD ([id number]) on 10/11/2024 11:20:25 PM NAME : AGUEDA LEWIS PID : [id number] : 1995 Gender : Female Race : ORD : [id number] Procedure Date : Apr 03 2024 13:28:54 Edit Date : Oct 11 2024 23:20:30 Diagnosis: NORMAL SINUS RHYTHM NORMAL ECG NO PREVIOUS ECGS AVAILABLE Confirmed by BRENNA SANTIAGO MD ([id number]) on 10/11/2024 11:20:25 PM Test Reason : Chest Pain Location : 4 : [facility] Overread By : BRENNA SANTIAGO MD Edited By : BRENNA SANTIAGO MD Referred By : , Acquired by : BRAXTON SORIANO [facility] ED NOTEon 04-03-2024 ED NOTE HNO ID: [id number] Author: MINDY VICTORIA RN Service: ? Author Type: Registered Nurse Type: ED Notes Filed: 04/03/2024 13:36 Note Text: XR notified Normal [facility] ED PROV NOTEon 04-03-2024 ED PROV NOTE HNO ID: [id number] Author: BUDDY HOPKINS MD Service: Emergency Medicine [...] Final Result IMPRESSION: No acute radiographic abnormality. Berry Picker: AMIE Transcribe Date/Time: Apr 03 2024 2:20P [...] discomfort. Vital (more content not included)... Normal 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 HCG Preg Ur Qlon 04-03-2024 HCG ( test) Ql (U) Negative Normal Negative [facility] Comment on above: Order Comment: Speci men Type: URINE SPECIMEN [facility] Address: [address] [place] [address] Result Comment: This test is intended to aid in the early detection of . Very dilute urine samples, as indicated by a low specific gravity, may not contain business services sales representative levels of hCG. This test detects [...] . Performed By: #### 2 106-3 #### [facility] CLIA [id number] OF [facility] HIGH SENSITIVITY TROPONIN T (INITIAL)on 04-03-2024 Troponin T.cardiac High sensitivity method [Mass/Vol] <6 Normal <12 [facility] Comment on above: Order Comment: Speci [facility] Type: BLOOD SPECIMENOrdering Facility: [facility] Address: [address] [place] [address] Performed By: #### L [id number] ####[facility] LABORATORYCLIA [id number] [address] HIGH SENSITIVITY TROPONIN T (SECOND)on 04-03-2024 Troponin T.cardiac High sensitivity method [Mass/Vol] <6 Normal <12 [facility] Comment on above: Order Comment: Speci [facility] Type: BLOOD SPECIMENOrdering Facility: [facility] Address: [address] [place] [address] Performed By: #### L [id number] ####[facility] LABORATORYCLIA [id number] [address] OF [facility] Magnesium SerPl-mCncon 04-03 Magnesium [Mass/Vol] 1.8 mg/dL Normal 1.7-2.3 [facility] Comment on above: Order Comment: Speci men Type: BLOOD SPECIMENOrdering Facility: [facility] Address: [address] [place] [address] Performed By: #### 1 9123-9, 50012-9 ####[facility] [id number] [address] Urinalysis complete panel (U )on 04-03-2024 Bacteria LM.HPF (Urine sed) [#/Area] Moderate Abnormal None Seen [facility] Comment on above: Order Comment: Speci men Type: URINE SPECIMENOrdering Facility: [facility] Address: [address] [place] [address] Performed By: #### 2 4356-8 ####[facility] LABORATORYCLIA [id number] [address] Bilirubin Ql (U) Negative Normal Negative [facility] Comment on above: Order Comment: Speci men Type: URINE SPECIMENOrdering Facility: [facility] Address: [address] [place] [address] Performed By: #### 2 4356-8 ####[facility] LABORATORYCLIA [id number] [address] Clarity (Unsp spec) Turbid Abnormal Clear [facility] Comment on above: Order Comment: Speci men Type: URINE SPECIMENOrdering Facility: [facility] Address: [address] [place] [address] Performed By: #### 2 4356-8 ####[facility] LABORATORYCLIA [id number] [address] Color (U) Yellow Normal yellow [facility] Comment on above: Order Comment: Speci men Type: URINE SPECIMENOrdering Facility: [facility] Address: [address] [place] [address] Performed By: #### 2 4356-8 ####[facility] LABORATORYCLIA [id number] [address] Epithelial cells LM.HPF (Urine sed) [#/Area] Few Normal [facility] Comment on above: Order Comment: Speci men Type: URINE SPECIMENOrdering Facility: [facility] Address: [address] [place] [address] Performed By: #### 2 4356-8 ####[facility] LABORATORYCLIA [id number] [address] Glucose Test strip (U) [Mass/Vol] Negative Normal Trace, Negative [facility] Comment on above: Order Comment: Speci men Type: URINE SPECIMENOrdering Facility: [facility] Address: [address] [place] [address] Performed By: #### 2 4356-8 ####[facility] LABORATORYCLIA [id number] [address] STATES OF [facility] Hemoglobin Ql (U) Negative Normal Negative, Trace [facility] Comment on above: Order Comment: Speci men Type: URINE SPECIMENOrdering Facility: [facility] Address: [address] [place] [address] Performed By: #### 2 4356-8 ####[facility] LABORATORYCLIA [id number] [address] Hyaline casts (Urine sed) [#/Area] 4-10 /LPF Abnormal 0 /LPF [facility] Comment on above: Order Comment: Speci men Type: URINE SPECIMENOrdering Facility: [facility] Address: [address] [place] [address] Performed By: #### 2 4356-8 ####[facility] LABORATORYCLIA [id number] [address] Ketones Ql (U) Negative Normal Negative, Trace [facility] Comment on above: Order Comment: Speci men Type: URINE SPECIMENOrdering Facility: [facility] Address: [address] [place] [address] Performed By: #### 2 4356-8 ####[facility] LABORATORYCLIA [id number] [address] Leukocyte esterase Test strip Ql (U) Negative Normal Negative, 25 [place]/uL [facility] Comment on above: Order Comment: Speci men Type: URINE SPECIMENOrdering Facility: [facility] Address: [address] [place] [address] Performed By: #### 2 4356-8 ####[facility] LABORATORYCLIA [id number] [place] [address] [place] Nitrite Ql (U) 2+ Abnormal Negative [facility] Comment on above: Order Comment: Speci men Type: URINE SPECIMENOrdering Facility: [facility] Address: [address] [place] [address] Performed By: #### 2 4356-8 ####[facility] LABORATORYCLIA [id number] [place] [address] [place] pH (U) 6.5 [pH] Normal 5.0-8.0 [facility] Comment on above: Order Comment: Speci men Type: URINE SPECIMENOrdering Facility: [facility] Address: [address] [place] [address] Performed By: #### 2 4356-8 ####[facility] LABORATORYCLIA [id number] [address] STATES [facility] Protein (U) [Mass/Vol] 1+ Abnormal Trace , Negative [facility] Comment on above: Order Comment: Speci men Type: URINE SPECIMENOrdering Facility: [facility] Address: [address] [place] [address] Performed By: #### 2 4356-8 ####[facility] LABORATORYCLIA [id number] [address] [place] RBC LM.HPF (Urine sed) [#/Area] 0-3 /HPF Normal 0-3 /HPF [facility] Comment on above: Order Comment: Speci men Type: URINE SPECIMENOrdering Facility: [facility] Address: [address] [place] [address] Performed By: #### 2 4356-8 ####[facility] LABORATORYCLIA [id number] [address] [place] Specific gravity (U) [Rel density] 1.030 Normal 1.005-1.030 [facility] Comment on above: Order Comment: Speci men Type: URINE SPECIMENOrdering Facility: [facility] Address: [address] [place] [address] Performed By: #### 2 4356-8 ####[facility] LABORATORYCLIA [id number] [address] [place] Urobilinogen Ql (U) 1+ Abnormal Normal [facility] Comment on above: Order Comment: Speci men Type: URINE SPECIMENOrdering Facility: [facility] Address: [address] [place] [address] Performed By: #### 2 4356-8 ####[facility] LABORATORYCLIA [id number] [address] WBC LM.HPF (Urine sed) [#/Area] 0-5 /HPF Normal 0-5 /HPF [facility] Comment on above: Order Comment: Speci men Type: URINE SPECIMENOrdering Facility: [facility] Address: [address] [place] [address] Performed By: #### 2 4356-8 ####[facility] LABORATORYCLIA [id number] [address] [place] XR CHEST 2V [...] tissues: Unremarkable. IMPRESSION: No acute radiographic abnormality. Berry Picker: [email or web address] Transcribe Date/Time: Apr 03 2024 2:20P Dictated by : VICTOR M FISCHER MD This examination was interpreted and the report reviewed and electronically signed by: VICTOR M FISCHER MD on Apr 03 2024 2:23PM EST [id number] Normal [facility] Progress Noteon 04-02-2024 Progress Note Chart reviewed of ED follow up Seen in [facility] ED on 03/29/2024 Reason: Abdominal pain-gallstones Discharge instructions: Follow-up with surgery. Patient has appointment scheduled with General Surgery on 04/11/24. Asuum message sent. [facility] 36on 04-01-2024 36 Spoke with patient a nd she is scheduled. DP [facility] 36 Please contact leo oden to schedule. [facility] 36on 03-29-2024 36 ED provider requesti ng appointment for patient to see a surgeon for biliary colic. ED provider advised that a message would be sent to management and that they will reach out to the patient on Monday to assist with scheduling. [facility] CBC W Auto Differential pane l (Bld)on 03-29-2024 Basophils (Bld) [#/Vol] 0 10*3/uL 0.0 - 0.2 10*3/uL [facility] Basophils/100 WBC (Bld) 0.4 % 0.0 - 2.0 % [facility] Eosinophils (Bld) [#/Vol] 0.1 10*3/uL 0.0 - 0.5 10*3/uL [facility] Eosinophils/100 WBC (Bld) 1.2 % 0.0 - 6.0 % [facility] Client24 Erythrocyte distribution width (RBC) [Ratio] 13.8 % 11.5 - 15.0 % [facility] Hematocrit (Bld) [Volume fraction] 39.9 % 35.0 - 47.0 % [facility] Hemoglobin (Bld) [Mass/Vol] 12.7 g/dL 11.7 - 16.0 g/dL [facility] Immature granulocytes (Bld) [#/Vol] 0 10*3/uL NINF - 0.1 10*3/uL [facility] Client24 Immature granulocytes/100 WBC (Bld) 0.2 % 0.0 - 2.0 % [facility] Client24 Interpretation and review of laboratory results Normal [facility] Lymphocytes (Bld) [#/Vol] 1.9 10*3/uL 1.0 - 4.3 10*3/uL [facility] Client24 Lymphocytes/100 WBC (Bld) 18.6 % 15.0 - 45.0 % [facility] MCH (RBC) [Entitic mass] 26.3 pg 26.0 - 34.[address] [facility] MCHC (RBC) [Mass/Vol] 31.8 % 30.5 - 36.0 % [facility] MCV (RBC) [Entitic vol] 82.8 fL 77.0 - 99.[address] [facility] Monocytes (Bld) [#/Vol] 0.9 10*3/uL 0.0 - 0.9 10*3/uL [facility] Monocytes/100 WBC (Bld) 8.5 % 5.0 - 13.0 % [facility] Neutrophils (Bld) [#/Vol] 7.1 10*3/uL 1.8 - 7.5 10*3/uL [facility] Neutrophils/100 WBC (Bld) 71.1 % 38.0 - 82.0 % [facility] Nucleated RBC/100 WBC (Bld) [Ratio] 0 % [facility] Platelet mean volume (Bld) [Entitic vol] 10.3 fL 9.0 - 12.[address] [facility] Platelets (Bld) [#/Vol] 387 10*3/uL 140 - 440 10*3/uL [facility] RBC (Bld) [#/Vol] 4.82 10*6/uL 3.80 - 5.2 0 10*6/uL [facility] WBC (Bld) [#/Vol] 10 10*3/uL 3.6 - 10.7 10*3/uL [facility] CBC WITH AUTO DIFFERENTIALon 03-29-2024 Basophils (Bld) [#/Vol] 0.0 10*3/uL Normal 0.0-0.2 [facility] Comment on above: Performed By: #### L [id number] #### Batt Packer: RYLIE CRAWFORD ([phone]) [facility] ([facility]) [address] Basophils/100 WBC (Bld) 0.4 % Normal 0.0-2.0 [facility] Comment on above: Performed By: #### L [id number] #### Batt Packer: RYLIE CRAWFORD ([phone]) [facility] ([facility]) [address] Eosinophils (Bld) [#/Vol] 0.1 10*3/uL Normal 0.0-0.5 [facility] Comment on above: Performed By: #### L [id number] #### Batt Packer: RYLIE CRAWFORD ([phone]) [facility] ([facility]) [address] Eosinophils/100 WBC (Bld) 1.2 % Normal 0.0-6.0 [facility] Comment on above: Performed By: #### L [id number] #### Batt Packer: RYLIE CRAWFORD ([phone]) [facility] ([facility]) [address] Erythrocyte distribution width (RBC) [Ratio] 13.8 % Normal 11.5-15.0 [facility] Comment on above: Performed By: #### L [id number] #### Batt Packer: RYLIE CRAWFORD ([phone]) [facility] [address] Hematocrit (Bld) [Volume fraction] 39.9 % Normal 35.0-47.0 [facility] Comment on above: Performed By: #### L [id number] #### Batt Packer: RYLIE CRAWFORD ([phone]) [facility] ([facility]) [address] Hemoglobin (Bld) [Mass/Vol] 12.7 g/dL Normal 11.7-16.0 [facility] Comment on above: Performed By: #### L [id number] #### Batt Packer: RYLIE CRAWFORD ([phone]) [facility] [address] IMMATURE GRANS % 0.2 % Normal 0.0-2.0 [facility] Comment on above: Performed By: #### L [id number] #### Batt Packer: RYLIE CRAWFORD ([phone]) [facility] [address] IMMATURE GRANS ABSOLUTE 0.0 10*3/uL Normal <0.1 [facility] Comment on above: Performed By: #### L [id number] #### Batt Packer: RYLIE CRAWFORD ([phone]) [facility] ([facility]) [address] Lymphocytes (Bld) [#/Vol] 1.9 10*3/uL Normal 1.0-4.3 [facility] Comment on above: Performed By: #### L [id number] #### Batt Packer: RYLIE CRAWFORD ([phone]) [facility] ([facility]) [address] Lymphocytes/100 WBC (Bld) 18.6 % Normal 15.0-45.0 [facility] Comment on above: Performed By: #### L [id number] #### Batt Packer: RYLIE CRAWFORD ([phone]) [facility] ([facility]) [address] MCH (RBC) [Entitic mass] 26.3 pg Normal 26.0-34.0 [facility] Comment on above: Performed By: #### L [id number] #### Batt Packer: RYLIE CRAWFORD ([phone]) [facility] ([facility]) [address] MCHC 31.8 % Normal 30.5-36.0 [facility] Comment on above: Performed By: #### L [id number] #### Batt Packer: RYLIE CRAWFORD ([phone]) [facility] ([facility]) [address] MCV (RBC) [Entitic vol] 82.8 fL Normal 77.0-99.0 [facility] Comment on above: Performed By: #### L [id number] #### Batt Packer: RYLIE CRAWFORD ([phone]) [facility] ([facility]) [address] [place] [address] [place] Monocytes (Bld) [#/Vol] 0.9 10*3/uL Normal 0.0-0.9 [facility] Comment on above: Performed By: #### L [id number] #### Batt Packer: RYLIE CRAWFORD ([phone]) [facility] ([facility]) [address] Monocytes/100 WBC (Bld) 8.5 % Normal 5.0-13.0 [facility] Comment on above: Performed By: #### L [id number] #### Batt Packer: RYLIE CRAWFORD ([phone]) [facility] [address] [place] [address] [place] NEUTROPHILS ABSOLUTE 7.1 10*3/uL Normal 1.8-7.5 [facility] Comment on above: Performed By: #### L [id number] #### Batt Packer: RYLIE CRAWFORD ([phone]) [facility] [address] Neutrophils/100 WBC (Bld) 71.1 % Normal 38.0-82.0 [facility] Comment on above: Performed By: #### L [id number] #### Batt Packer: RYLIE CRAWFORD ([phone]) [facility] [address] [place] [address] [place] NRBC 0.0 /100 WBCs Normal 0.0-2.0 [facility] Comment on above: Performed By: #### L [id number] #### Batt Packer: RYLIE CRAWFORD ([phone]) [facility] [address] [place] [address] [place] Platelet mean volume (Bld) [Entitic vol] 10.3 fL Normal 9.0-12.7 [facility] Comment on above: Performed By: #### L [id number] #### Batt Packer: RYLIE CRAFWORD ([phone]) [facility] [address] [place] [address] [place] Platelets (Bld) [#/Vol] 387 10*3/uL Normal 140-440 [facility] Comment on above: Performed By: #### L [id number] #### Batt Packer: RYLIE CRAWFORD ([phone]) [facility] ([facility]) [address] RBC (Bld) [#/Vol] 4.82 10*6/uL Normal 3.80-5.20 [facility] Comment on above: Performed By: #### L [id number] #### Batt Packer: RYLIE TY ([phone]) [facility] ([facility]) [address] WBC (Bld) [#/Vol] 10.0 10*3/uL Normal 3.6-10.7 [facility] Comment on above: Performed By: #### L [id number] #### Batt Packer: RYLIEANGIE CRAWFORD ([phone]) [facility] ([facility]) [address] CHLAMYDIA/GONORRHEAon 2023 CHLAMYDIA/GONORRHEA NEISSERIA GONORRHOEA E [...] should be collected if clinically indicated. Normal [facility] Comment on above: Performed By: #### L [id number] #### Batt Packer: ASTRID MERCEDES ([phone]) [facility] (SACLAB) [address] COMPLETE URINALYSISon 2023 BACTERIA (#/HPF) IN URINE Moderate Abnormal Negative [facility] Comment on above: Performed By: #### L [id number] ####Batt Packer: RYLIEANGIE CRAWFORD ([phone])[facility] [place] ([facility] BILIRUBIN, TOTAL PRESENCE IN URINE Negative Normal Negative [facility] Comment on above: Performed By: #### L AB347 ####Batt Packer: RYLIE TY ([phone])[facility] ([facility])[address] Clarity (U) Clear Normal Clear [facility] Comment on above: Performed By: #### L AB347 ####Batt Packer: RYLIE TY ([phone])[facility] ([facility])[address] Color (U) Light Yellow Normal Lt. Yellow [facility] Comment on above: Performed By: #### L AB347 ####Batt Packer: RYLIE TY ([phone])[facility] ([facility])[address] GLUCOSE (MG/DL) IN URINE Normal Normal Normal (<70) [facility] Comment on above: Performed By: #### L AB347 ####Batt Packer: RYLIE HELLEREVER ([phone])[facility] ([facility])[address] HEMOGLOBIN PRESENCE IN URINE 0.03 mg/dL Abnormal Negative [facility] Comment on above: Performed By: #### L AB347 ####Batt Packer: RYLIE TY ([phone])[facility] ([facility])[address] Ketones Ql (U) Negative Normal Negative [facility] Comment on above: Performed By: #### L AB347 ####Batt Packer: RYLIE TY ([phone])[facility] ([facility])[address] LEUKOCYTE ESTERASE PRESENCE IN URINE BY TEST STRIP Negative Normal Negative [facility] Comment on above: Performed By: #### L AB347 ####Batt Packer: RYLIE CRAWFORD ([phone])[facility] ([facility])155 [place] [address] [place] MUCUS (#/LPF) IN URINE SEDIMENT Many Abnormal Negative [facility] Comment on above: Performed By: #### L AB347 ####Batt Packer: RYLIE CRAWFORD ([phone])[facility] ([facility])155 [place] [address] [place] NITRITE PRESENCE IN URINE Negative Normal Negative [facility] Comment on above: Performed By: #### L AB347 ####Batt Packer: RYLIE MOODYHUONG ([phone])[facility] ([facility])[address] NON-SQUAMOUS EPITHELIAL (#/HPF) IN URINE 0-2 Abnormal Negative [facility] Comment on above: Performed By: #### L AB347 ####Batt Packer: RYLIE CRAWFORD ([phone])[facility] ([facility])[address] pH (U) 5.0 [pH] Normal 5.0-8.0 [facility] Comment on above: Performed By: #### L AB347 ####Batt Packer: RYLIE CRAWFORD ([phone])[facility] ([facility])[address] Protein (U) [Mass/Vol] Negative Normal Negative [facility] Comment on above: Performed By: #### L AB347 ####Batt Packer: RYLIE CRAWFORD ([phone])[facility] ([facility])155 [place] [address] [place] RBC (#/HPF) IN URINE SEDIMENT 0-2 Normal 0-2 [facility] Comment on above: Performed By: #### L AB347 ####Batt Packer: RYLIE CRAWFORD ([phone])[facility] ([facility])155 [place] [address] [place] Specific gravity (U) [Rel density] 1.023 Normal 1.005-1.030 [facility] Comment on above: Performed By: #### L AB347 ####Batt Packer: RYLIE CRAWFORD ([phone])[facility] ([facility])[address] SQUAMOUS EPITHELIAL CELLS (#/HPF) IN URINE SEDIMENT 6-10 Abnormal 3-5 [facility] Comment on above: Performed By: #### L AB347 ####Batt Packer: RYLIE CRAWFORD ([phone])[facility] ([facility])[address] TRICHOMONAS SP (#/HPF) IN URINE Few (1-5) Abnormal Negative [facility] Comment on above: Performed By: #### L AB347 ####Batt Packer: RYLIE CRAWFORD ([phone])[facility] ([facility])[address] UROBILINOGEN (MG/DL) IN URINE Normal Normal Normal (0-1) [facility] Comment on above: Performed By: #### L AB347 ####Batt Packer: RYILE CRAWFORD ([phone])[facility] ([facility])[address] WBC (LEUKOCYTE) (#/HPF) IN URINE SEDIMENT 0-2 Normal 0-5 [facility] Comment on above: Performed By: #### L AB347 ####Batt Packer: RYLIE CRAWFORD ([phone])[facility])[address] COMPREHENSIVE METABOLIC PANE Petros 03-29-2024 Albumin [Mass/Vol] 4.3 g/dL Normal 3.5-5.0 [facility] Comment on above: Performed By: #### L AB99, LAB17 ####Batt Packer: RYLIE CRAWFORD ([phone])[facility] ([facility])[address] ALP [Catalytic activity/Vol] 77 U/L Normal 38-126 [facility] Comment on above: Performed By: #### L AB99, LAB17 ####Batt Packer: RYLIE CRAWFORD ([phone])[facility] [place] ([facility])[address] ALT [Catalytic activity/Vol] 16 U/L Normal 0-34 [facility] Comment on above: Performed By: #### L AB99, LAB17 ####Batt Packer: RYLIE CRAWFORD ([phone])[facility] ([facility])[address] Anion gap [Moles/Vol] 7 mmol/L Normal 3-13 [facility] Comment on above: Performed By: #### L AB99, LAB17 ####Batt Packer: RYLIE CRAWFORD ([phone])[facility] ([facility])[address] AST [Catalytic activity/Vol] 21 U/L Normal 15-46 [facility] Comment on above: Performed By: #### L ABYonny, LAB17 ####Batt Packer: RYLIE CRAWFORD ([phone])[facility] ([facility])[address] Bilirubin [Mass/Vol] 0.4 mg/dL Normal 0.2-1.3 [facility] Comment on above: Performed By: #### L AB99, LAB17 ####Batt Packer: RYLIE CRAWFORD ([phone])[facility] ([facility])[address] Calcium [Mass/Vol] 8.9 mg/dL Normal 8.4-10.4 [facility] Comment on above: Performed By: #### L AB99, LAB17 ####Batt Packer: RYLIE CRAWFORD ([phone])[facility] ([facility])[address] [place] [address] [place] Chloride [Moles/Vol] 107 mmol/L Normal 98-107 [facility] Comment on above: Performed By: #### L AB99, LAB17 ####Batt Packer: RYLIE CRAWFORD ([phone])[facility] ([facility])[address] CO2 [Moles/Vol] 25 mmol/L Normal 22-30 [facility] Comment on above: Performed By: #### L AB99, LAB17 ####Batt Packer: RYLIE CRAWFORD ([phone])[facility] ([facility])[address] Creatinine [Mass/Vol] 0.92 mg/dL Normal 0.52-1.04 [facility] Comment on above: Performed By: #### L AB99, LAB17 ####Batt Packer: RYLIE CRAWFORD ([phone])[facility] ([facility])[address] GLOMERULAR FILTRATION RATE ML/MIN/1.73 SQ M.PREDICTED 86.1 mL/min/1.73m*2 Normal >60.0 [facility] Comment on above: Result Comment: Calc ulation based on the Chronic Kidney Disease Epidemiology Collaboration (CKD-EPI) equation refit without adjustment for race Performed By: #### L AB99, LAB17 ####Batt Packer: RYLIE CRAWFORD ([phone])[facility] ([facility])[address] Glucose [Mass/Vol] 98 mg/dL Normal 70-100 [facility] Comment on above: Performed By: #### L AB99, LAB17 ####Batt Packer: RYLIE CRAWFORD ([phone])[facility] ([facility])155 [place] [address] [place] Potassium [Moles/Vol] 3.6 mmol/L Normal 3.5-5.1 [facility] Comment on above: Performed By: #### L AB99, LAB17 ####Batt Packer: RYLIE CRAWFORD ([phone])[facility] ([facility])[address] Protein [Mass/Vol] 8.0 g/dL Normal 6.3-8.2 [facility] Comment on above: Performed By: #### L AB99, LAB17 ####Batt Packer: RYLIE CRAWFORD ([phone])[facility] ([facility])[address] Sodium [Moles/Vol] 139 mmol/L Normal 135-145 [facility] Comment on above: Performed By: #### L AB99, LAB17 ####Batt Packer: RYLIE CRAWFORD ([phone])[facility] ([facility])[address] Urea nitrogen [Mass/Vol] 12 mg/dL Normal 7-17 [facility] Comment on above: Performed By: #### L AB99, LAB17 ####Batt Packer: RYLIE CRAWFORD ([phone])[facility] ([facility])[address] Comprehensive metabolic 1998 panelon 03-29-2024 Albumin [Mass/Vol] 4.3 g/dL 3.5 - 5.0 g/dL [facility] ALP [Catalytic activity/Vol] 77 U/L 38 - 126 U/L [facility] ALT [Catalytic activity/Vol] 16 U/L 0 - 34 U/L [facility] Anion gap [Moles/Vol] 7 mmol/L 3 - 13 mmol/L [facility] AST [Catalytic activity/Vol] 21 U/L 15 - 46 U/L [facility] Bilirubin [Mass/Vol] 0.4 mg/dL 0.2 - 1 .3 mg/dL [facility] Calcium [Mass/Vol] 8.9 mg/dL 8.4 - 10. 4 mg/dL [facility] Chloride [Moles/Vol] 107 mmol/L 98 - 10 7 mmol/L [facility] CO2 [Moles/Vol] 25 mmol/L 22 - 30 mmol/L [facility] Creatinine [Mass/Vol] 0.92 mg/dL 0.52 - 1.04 mg/dL [facility] GFR/1.73 sq M.predicted (S/P/Bld) [Vol rate/Area] 86.1 mL/min - PINF [facility] Comment on above: Calculation based on the Chronic Kidney Disease Epidemiology Collaboration (CKD-EPI) equation refit without adjustment for race Glucose [Mass/Vol] 98 mg/dL 70 - 100 mg/dL [facility] Potassium [Moles/Vol] 3.6 mmol/L 3.5 - 5.1 mmol/L [facility] Protein [Mass/Vol] 8 g/dL 6.3 - 8.2 g/dL [facility] Sodium [Moles/Vol] 139 mmol/L 135 - 145 mmol/L [facility] Urea nitrogen [Mass/Vol] 12 mg/dL 7 - 17 mg/dL [facility] ED Nursing Noteon 03-29-2024 ED Nursing Note Attempted PIV x2; unsuccessful. Will notify oncoming RN. Normal [facility] ED Nursing Note Patient states that she has had RUQ pain intermittently for the past couple weeks. States that she has hx of gallstones. Denies abdominal surgical hx. Endorses nausea w/out vomiting. Normal [facility] ED Provider Noteon ED Provider Note [...] with nausea or vomiting. Patient has taken xesc-vbp-mojvifv medication without significant proven symptoms. Of note [...] Friends and Family: Twice a week Attends Holiness Services: Never Active Member of Clubs or [...] Rhythm: Nor (more content not included)... Normal [facility] HCG QUALITATIVE URINEon Beta HCG ( test) Ql (U) Negative Normal Negative [facility] Comment on above: Result Comment: Plea se note: Very dilute urine specimens, as indicated by a low specific gravity, may not contain business services sales representative levels of hCG. If is still suspected, a first morning urine specimen should be collected 48 hours later and tested. ORDER COMMENTS: is the most common reason for HCG in urine, although choriocarcinoma, hydatidiform mole, and certain nontrophoblastic malignancies also result in detectable urinary HCG levels. Sensitivity = 20mIU/mL. Performed By: #### L [id number] ####Batt Packer: RYLIE CRAWFORD ([phone])[facility] ([facility])[address] [place] [address] LIPASEon 03-29-2024 Lipase [Catalytic activity/Vol] 110 U/L Normal 23-300 [facility] Comment on above: Performed By: #### L AB99, LAB17 ####Batt Packer: RYLIE CRAWFORD ([phone])[facility] ([facility])[address] [place] [address] Laboratory - Chemistry and C hemistry - challengeOrdered By: Becky [place] on 03-29-2024 Beta HCG ( test) Ql Negative Negative [facility] Comment on above: Please note: Very di lute urine specimens, as indicated by a low specific gravity, may not contain business services sales representative levels of hCG. If is still suspected, a first morning urine specimen should be collected 48 hours later and tested. Beta HCG ( test) Ql (U) is the most common reason for HCG in urine, although choriocarcinoma, hydatidiform mole, and certain nontrophoblastic malignancies also result in detectable urinary HCG levels. Sensitivity = 20mIU/mL. [facility] Laboratory - Chemistry and C hemistry - challengeon 03-29-2024 Lipase [Catalytic activity/Vol] 110 U/L 23 - 300 U/L [facility] No Panel InformationOrdered By: Becky [place] on 03-29-[address] [facility] No Panel Informationon 03-29 Interpretation and review of laboratory results Normal [facility] US ABDOMEN LIMITEDon 024 US ABDOMEN LIMITED [facility] 1995 [id number] Exam Date/Time: 03/29/2024 19:59 Procedure: US ABDOMEN LIMITED Ordering Provider: HOPE MICHAEL Reason For Exam: RUQ abdominal pain, no prior imaging INDICATION: 29-year-old female; right upper quadrant abdominal pain. VIEWS: Multiple grayscale sonographic images were obtained of the abdomen targeted to the right upper quadrant by the chemistry technologist with color and Doppler flow imaging. COMPARISON: Report from the [facility] RIGHT upper quadrant ultrasound 02/14/2024 (no images) [...] Electronically Signed Date/Time: 03/29/2024 9:22 PM EST [facility] US Abdomen [facility] 024 1. Cholelithiasis. Positive sonographic Porter's sign is nonspecific (also positive on 02/14/2024). Nuclear medicine HIDA scan may be of benefit to further evaluate for chronic versus acute cholecystitis. 2. Hepatic steatosis. Report Dictated on Electronically Signed By: Tayla Shrestha MD Electronically Signed Date/Time: 03/29/2024 9:22 PM [facility] Patient Name: AGUEDA AC : 1995 [facility]#: [id number] Exam Date/Time: 03/29/2024 19:59 Procedure: US ABDOMEN LIMITED Ordering Provider: HOPE MICHAEL Reason For Exam: RUQ abdominal pain, no prior imaging INDICATION: 29-year-old female; right upper quadrant abdominal pain. VIEWS: Multiple grayscale sonographic images were obtained of the abdomen targeted to the right upper quadrant by the chemistry technologist with color and Doppler flow imaging. COMPARISON: Report from the [facility] RIGHT upper quadrant ultrasound 02/14/2024 (no images) [...] of the liver without a discrete mass. [facility] Tayla Shrestha MD - 03/29/2024 Patient Name: AGUEDA LEWIS : 1995 Exam Date/Time: 03/29/2024 19:59 Procedure: US ABDOMEN LIMITED Ordering Provider: HOPE MICHAEL Reason For Exam: RUQ abdominal pain, no prior imaging INDICATION: 29-year-old female; right upper quadrant abdominal pain. VIEWS: Multiple grayscale sonographic images were obtained of the abdomen targeted to the right upper quadrant by the chemistry technologist with color and Doppler flow imaging. COMPARISON: Report from the [facility] RIGHT upper quadrant ultrasound 02/14/2024 (no images) [...] Electronically Signed Date/Time: 03/29/2024 9:22 PM EST [facility] Radiology Study observation (narrative) [facility] US Abdomen limitedOrdered By : Tayal Shrestha on 03-29-2024 [facility] Client24 Work Phone: Urinalysis complete panel (U )on 03-29-2024 Bacteria LM.HPF (Urine sed) [#/Area] Moderate Abnormal Negative /HPF [facility] Bilirubin Ql (U) Negative Negative mg/dL [facility] Clarity (U) Clear Clear [facility] Color (U) Light Yellow Lt. Yellow [facility] Epithelial cells.squamous LM.HPF (Urine sed) [#/Area] 6-[address] [facility] Glucose Ql (U) Normal Normal (<70) mg/dL [facility] Hemoglobin Ql (U) 0.03 mg/dL Abnormal Negative [facility] Interpretation and review of laboratory results Abnormal [facility] Ketones (U) [Mass/Vol] Negative Negat joanne mg/dL [facility] Leukocyte esterase Test strip Ql (U) Negative Negative [place]/uL [facility] Mucus LM.HPF (Urine sed) [#/Area] Many Abnormal Negative /LPF [facility] Nitrite Ql (U) Negative Negative [facility] Non-Squamous Epithalial Cells, Urine 0-2 Abnormal Negative /HPF [facility] pH (U) 5.0 [pH] 5.0 - 8.[address] [facility] Protein (U) [Mass/Vol] Negative Negat joanne mg/dL [facility] RBC LM.HPF (Urine sed) [#/Area] 0-[address] [facility] Specific gravity (U) [Rel density] 1.023 1.005 - 1.[address] [facility] Trichomonas sp LM.HPF (Urine sed) [#/Area] Few (1-5) Abnormal Negative /HPF [facility] Urobilinogen (U) [Mass/Vol] Normal Normal (0-1) mg/dL [facility] WBC LM.HPF (Urine sed) [#/Area] 0-2 [facility] Basic metabolic 2000 panelon 02-14-2024 Anion gap [Moles/Vol] 12 mmol/L Normal 8-15 [facility] Comment on above: Order Comment: Speci men Type: BLOOD SPECIMENOrdering Facility: [facility] Address: [address] [place] [address] Performed By: #### 2 4325-3, 3040-3, 29306-0 ####[facility] LABORATORYCLIA [id number] [place] [address] [place] Calcium [Mass/Vol] 9.0 mg/dL Normal 8.5-10.2 [facility] Comment on above: Order Comment: Speci men Type: BLOOD SPECIMENOrdering Facility: [facility] Address: [address] [place] [address] Performed By: #### 2 4325-3, 3040-3, 36556-9 ####[facility] LABORATORYCLIA [id number] [place] [address] [place] Chloride [Moles/Vol] 103 mmol/L Normal 98-107 [facility] Comment on above: Order Comment: Speci men Type: BLOOD SPECIMENOrdering Facility: [facility] Address: [address] [place] [address] Performed By: #### 2 4325-3, 3040-3, 16637-6 ####[facility] LABORATORYCLIA [id number] [place] [address] [place] CO2 [Moles/Vol] 22 mmol/L Normal 22-30 [facility] Comment on above: Order Comment: Speci men Type: BLOOD SPECIMENOrdering Facility: [facility] Address: [address] [place] [address] Performed By: #### 2 4325-3, 3040-3, 05099-4 ####[facility] LABORATORYCLIA [id number] [place] [address] [place] Creatinine [Mass/Vol] 1.11 mg/dL High 0.58-0.96 [facility] Comment on above: Order Comment: Vanessa echavarria Type: BLOOD SPECIMENOrdering Facility: [facility] Address: [address] [place] [address] Performed By: #### 2 4325-3, 3040-3, 99032-4 ####[facility] LABORATORYCLIA [id number] [address] [place] Creatinine and Glomerular filtration rate.predicted panel (S/P/Bld) 69 mL/min/1.73m??? Normal >=60 [facility] Comment on above: Order Comment: Vanessa echavarria Type: BLOOD SPECIMENOrdering Facility: [facility] Address: [address] [place] [address] Result Comment: Makayla mated Glomerular Filtration Rate [...] GFR. Performed By: #### 2 4325-3, 3040-3, 17624-5 ####[facility] LABORATORYCLIA [id number] [place] [address] [place] Glucose [Mass/Vol] 115 mg/dL High 74-99 [facility] Comment on above: Order Comment: Vanessa jericho Type: BLOOD SPECIMENOrdering Facility: [facility] Address: [address] [place] [address] Result Comment: The [place] [employer] (ADA) provides guidance for cutoff [...] Standards of Medical Care in Diabetes 2016, [place] [employer]. Diabetes Care. 2016.39(Suppl 1). Performed By: #### 2 4325-3, 3040-3, 65738-7 ####[facility] LABORATORYCLIA [id number] [address] [place] Potassium [Moles/Vol] 3.7 mmol/L Normal 3.7-5.1 [facility] Comment on above: Order Comment: Speci men Type: BLOOD SPECIMENOrdering Facility: [facility] Address: [address] [place] [address] Performed By: #### 2 4325-3, 3040-3, 90146-1 ####[facility] LABORATORYCLIA [id number] [address] STATES OF [facility] Sodium [Moles/Vol] 137 mmol/L Normal 136-144 [facility] Comment on above: Order Comment: Speci men Type: BLOOD SPECIMENOrdering Facility: [facility] Address: [address] [place] [address] Performed By: #### 2 4325-3, 3040-3, 44685-0 ####[facility] LABORATORYCLIA [id number] [address] STATES OF [facility] Urea nitrogen [Mass/Vol] 15 mg/dL Normal 7-21 [facility] Comment on above: Order Comment: Speci men Type: BLOOD SPECIMENOrdering Facility: [facility] Address: [address] [place] [address] Performed By: #### 2 4325-3, 3040-3, 14246-4 ####[facility] LABORATORYCLIA [id number] [address] [place] CBC W Auto Differential pane l (Bld)on 02-14-2024 Basophils (Bld) [#/Vol] 0.05 10*3/uL Normal <0.11 [facility] Comment on above: Order Comment: Speci men Type: BLOOD SPECIMENOrdering Facility: [facility] Address: [address] [place] [address] Performed By: #### 5 7021-8 ####[facility] LABORATORYCLIA [id number] [address] [place] Basophils/100 WBC (Bld) 0.6 % Normal [facility] Comment on above: Order Comment: Speci men Type: BLOOD SPECIMENOrdering Facility: [facility] Address: [address] [place] [address] Performed By: #### 5 7021-8 ####[facility] LABORATORYCLIA [id number] [address] [place] Differential cell count method Nom (Bld) Auto Normal [facility] Comment on above: Order Comment: Speci men Type: BLOOD SPECIMENOrdering Facility: [facility] Address: [address] [place] [address] Performed By: #### 5 7021-8 ####[facility] LABORATORYCLIA [id number] [address] [place] Eosinophils (Bld) [#/Vol] 0.20 10*3/uL Normal <0.46 [facility] Comment on above: Order Comment: Speci men Type: BLOOD SPECIMENOrdering Facility: [facility] Address: [address] [place] [address] Performed By: #### 5 7021-8 ####[facility] LABORATORYCLIA [id number] [address] Eosinophils/100 WBC (Bld) 2.6 % Normal [facility] Comment on above: Order Comment: Speci men Type: BLOOD SPECIMENOrdering Facility: [facility] Address: [address] [place] [address] Performed By: #### 5 7021-8 ####[facility] LABORATORYCLIA [id number] [address] Erythrocyte distribution width (RBC) [Ratio] 15.0 % Normal 11.5-15.0 [facility] Comment on above: Order Comment: Speci men Type: BLOOD SPECIMENOrdering Facility: [facility] Address: [address] [place] [address] Performed By: #### 5 7021-8 ####[facility] LABORATORYCLIA [id number] [place] [id number] [place] Hematocrit (Bld) [Volume fraction] 36.8 % Normal 36.0-46.0 [facility] Comment on above: Order Comment: Speci men Type: BLOOD SPECIMENOrdering Facility: [facility] Address: [address] [place] [address] Performed By: #### 5 7021-8 ####[facility] LABORATORYCLIA [id number] [address] [place] Hemoglobin (Bld) [Mass/Vol] 11.4 g/dL Low 11.5-15.5 [facility] Comment on above: Order Comment: Speci men Type: BLOOD SPECIMENOrdering Facility: [facility] Address: [address] [place] [address] Performed By: #### 5 7021-8 ####[facility] LABORATORYCLIA [id number] [address] [place] Immature granulocytes (Bld) [#/Vol] 10*3/uL Normal <0.10 [facility] Comment on above: Order Comment: Speci men Type: BLOOD SPECIMENOrdering Facility: [facility] Address: [address] [place] [address] Performed By: #### 5 7021-8 ####[facility] LABORATORYCLIA [id number] [address] OF [place] Immature granulocytes/100 WBC (Bld) 0.1 % Normal [facility] Comment on above: Order Comment: Speci men Type: BLOOD SPECIMENOrdering Facility: [facility] Address: [address] [place] [address] Performed By: #### 5 7021-8 ####[facility] LABORATORYCLIA [id number] [address] [place] Lymphocytes (Bld) [#/Vol] 2.45 10*3/uL Normal 1.00-4.00 [facility] Comment on above: Order Comment: Speci men Type: BLOOD SPECIMENOrdering Facility: [facility] Address: [address] [place] [address] Performed By: #### 5 7021-8 ####[facility] LABORATORYCLIA [id number] [address] Lymphocytes/100 WBC (Bld) 31.7 % Normal [facility] Comment on above: Order Comment: Speci men Type: BLOOD SPECIMENOrdering Facility: [facility] Address: [address] [place] [address] Performed By: #### 5 7021-8 ####[facility] LABORATORYCLIA [id number] [address] STATES OF [facility] MCH (RBC) [Entitic mass] 26.5 pg Normal 26.0-34.0 [facility] Comment on above: Order Comment: Speci men Type: BLOOD SPECIMENOrdering Facility: [facility] Address: [address] [place] [address] Performed By: #### 5 7021-8 ####[facility] LABORATORYCLIA [id number] [address] STATES [facility] MCHC (RBC) [Mass/Vol] 31.0 g/dL Normal 30.5-36.0 [facility] Comment on above: Order Comment: Speci men Type: BLOOD SPECIMENOrdering Facility: [facility] Address: [address] [place] [address] Performed By: #### 5 7021-8 ####[facility] LABORATORYCLIA [id number] [address] [place] MCV (RBC) [Entitic vol] 85.4 fL Normal 80.0-100.0 [facility] Comment on above: Order Comment: Speci men Type: BLOOD SPECIMENOrdering Facility: [facility] Address: [address] [place] [address] Performed By: #### 5 7021-8 ####[facility] LABORATORYCLIA [id number] [address] Monocytes (Bld) [#/Vol] 0.61 10*3/uL Normal <0.87 [facility] Comment on above: Order Comment: Speci men Type: BLOOD SPECIMENOrdering Facility: [facility] Address: [address] [place] [address] Performed By: #### 5 7021-8 ####[facility] LABORATORYCLIA [id number] [address] [place] Monocytes/100 WBC (Bld) 7.9 % Normal [facility] Comment on above: Order Comment: Speci men Type: BLOOD SPECIMENOrdering Facility: [facility] Address: [address] [place] [address] Performed By: #### 5 7021-8 ####[facility] LABORATORYCLIA [id number] [place] [address] [place] Neutrophils (Bld) [#/Vol] 4.40 10*3/uL Normal 1.45-7.50 [facility] Comment on above: Order Comment: Speci men Type: BLOOD SPECIMENOrdering Facility: [facility] Address: [address] [place] [address] Performed By: #### 5 7021-8 ####[facility] LABORATORYCLIA [id number] [address] [place] Neutrophils/100 WBC (Bld) 57.1 % Normal [facility] Comment on above: Order Comment: Speci men Type: BLOOD SPECIMENOrdering Facility: [facility] Address: [address] [place] [address] Performed By: #### 5 7021-8 ####[facility] LABORATORYCLIA [id number] [place] [address] [place] Nucleated RBC (Bld) [#/Vol] 10*3/uL Normal <0.01 [facility] Comment on above: Order Comment: Speci men Type: BLOOD SPECIMENOrdering Facility: [facility] Address: [address] [place] [address] Performed By: #### 5 7021-8 ####[facility] LABORATORYCLIA [id number] [place] [address] [place] Nucleated RBC/100 WBC (Bld) [Ratio] 0.0 /[address] [facility] Comment on above: Order Comment: Speci men Type: BLOOD SPECIMENOrdering Facility: [facility] Address: [address] [place] [address] Performed By: #### 5 7021-8 ####[facility] LABORATORYCLIA [id number] [place] [address] [place] Platelet mean volume (Bld) [Entitic vol] 10.5 fL Normal 9.0-12.7 [facility] Comment on above: Order Comment: Speci men Type: BLOOD SPECIMENOrdering Facility: [facility] Address: [address] [place] [address] Performed By: #### 5 7021-8 ####[facility] LABORATORYCLIA [id number] [place] [address] [place] Platelets (Bld) [#/Vol] 323 10*3/uL Normal 150-400 [facility] Comment on above: Order Comment: Speci men Type: BLOOD SPECIMENOrdering Facility: [facility] Address: [address] [place] [address] Performed By: #### 5 7021-8 ####[facility] LABORATORYCLIA [id number] [place] [address] [place] RBC (Bld) [#/Vol] 4.31 10*6/uL Normal 3.90-5.20 [facility] Comment on above: Order Comment: Speci men Type: BLOOD SPECIMENOrdering Facility: [facility] Address: [address] [place] [address] Performed By: #### 5 7021-8 ####[facility] LABORATORYCLIA [id number] [place] [address] [place] WBC (Bld) [#/Vol] 7.72 10*3/uL Normal 3.70-11.00 [facility] Comment on above: Order Comment: Speci men Type: BLOOD SPECIMENOrdering Facility: [facility] Address: [address] [place] [address] Performed By: #### 5 7021-8 ####[facility] LABORATORYCLIA [id number] [place] [address] [place] OF [facility] ED NOTEon 02-14-2024 ED NOTE HNO ID: [id number] Author: DONAVAN ZAVALA CT Service: ? Author Type: Registered Nurse Type: ED Notes Filed: 02/14/2024 05:48 Note Text: No answer for re vitals @ [address] [facility] ED Triage Noteon 02-14-2024 ED Triage Note HNO ID: [id number] Author: KIM MCGRAW APRN.CNP Service: Emergency Medicine [...] Function Panel SIGNATURE: Kim Mcgraw APRN.CNP Normal [facility] Hepatic function 2000 panelo n 02-14-2024 Albumin [Mass/Vol] 3.9 g/dL Normal 3.9-4.9 [facility] Comment on above: Order Comment: Speci men Type: BLOOD SPECIMENOrdering Facility: [facility] Address: [address] [place] [address] Performed By: #### 2 4325-3, 3040-3, 21566-0 ####[facility] LABORATORYCLIA [id number] [address] ALP [Catalytic activity/Vol] 87 U/L Normal 34-123 [facility] Comment on above: Order Comment: Speci men Type: BLOOD SPECIMENOrdering Facility: [facility] Address: [address] [place] [address] Performed By: #### 2 4325-3, 3040-3, 89248-3 ####[facility] LABORATORYCLIA [id number] [place] [address] [place] ALT With P-5'-P [Catalytic activity/Vol] 13 U/L Normal 7-38 [facility] Comment on above: Order Comment: Speci men Type: BLOOD SPECIMENOrdering Facility: [facility] Address: [address] [place] [address] Performed By: #### 2 4325-3, 3040-3, 23846-3 ####[facility] LABORATORYCLIA [id number] [place] [address] [place] AST With P-5'-P [Catalytic activity/Vol] 17 U/L Normal 13-35 [facility] Comment on above: Order Comment: Speci men Type: BLOOD SPECIMENOrdering Facility: [facility] Address: [address] [place] [address] Performed By: #### 2 5-3, 0-3, 66541-8 ####[facility] LABORATORYCLIA [id number] [address] [place] Bilirubin [Mass/Vol] mg/dL Low 0.2-1.3 [facility] Comment on above: Order Comment: Speci men Type: BLOOD SPECIMENOrdering Facility: [facility] Address: [address] [place] [address] Performed By: #### 2 4325-3, 3040-3, 46227-3 ####[facility] LABORATORYCLIA [id number] [address] [place] Bilirubin.conjugated [Mass/Vol] mg/dL Normal <0.2 [facility] Comment on above: Order Comment: Speci men Type: BLOOD SPECIMENOrdering Facility: [facility] Address: [address] [place] [address] Performed By: #### 2 4325-3, 3040-3, 14399-9 ####[facility] LABORATORYCLIA [id number] [place] [address] [place] Protein [Mass/Vol] 6.9 g/dL Normal 6.3-8.0 [facility] Comment on above: Order Comment: Speci men Type: BLOOD SPECIMENOrdering Facility: [facility] Address: [address] [place], [place] [address] Performed By: #### 2 4325-3, 3040-3, 74385-6 ####[facility] LABORATORYCLIA [id number] [place] [address] [place] Lipase SerPl-cCncon 02-14-20 24 Lipase [Catalytic activity/Vol] 46 U/L Normal 16-61 [facility] Comment on above: Order Comment: Speci men Type: BLOOD SPECIMENOrdering Facility: [facility] Address: [address] [place] [address] Performed By: #### 2 4325-3, 3040-3, 91462-4 ####[facility] LABORATORYCLIA [id number] [place] [address] [place] US ABD RIGHT [...] sonographic Porter sign suggestive of acute cholecystitis. Berry Picker: AMIE Transcribe Date/Time: Feb 14 2024 4:42A Dictated by : TIMUR PRADO MD This examination was interpreted and the report reviewed and electronically signed by: TIMUR PRADO MD on Feb 14 2024 4:49AM EST [id number] [facility] ([employer]) ----- AGUEDA LEWIS ([id number]) 1995 F Date Time Provider Department 01/16/24 [...] dates for gall bladder surgery Janeen John Tree Climber Janeen John 02/27/2024 8:40 AM Signed Patient had no showed her echo stress test yesterday 02/26/2024 Patient is aware she is not able to proceed with scheduling surgery until test has been completed and she has been cleared Janeen John Tree Cl[employer]ber ' Janeen John 02/27/2024 8:40 AM Signed Mychart sent to call and rescheduling testing needing for clearance prior to proceeding with surgery Janeen John Tree Climber Allergies As of Date: 01/16/2024 (No Known [...] Encounter Status:Closed by MARCELLO PATRICK on 03/27/24 [facility] CNOVon 12-29-2023 CNOV Office Visit (GENSWS ) ----- AGUEDA LEWIS ([id number]) 1995 F Date Time Provider Department 12/29/23 [...] had been seen by a surgeon at [facility] who recommended cardiology consultation The patient does complain of occasional chest pain. She was seen by a press machine operator who recommended stress echocardiogram prior to any [...] Use: current everyday user Substances: Flavoring Devices: [employer] tank Substance Use Topics Alcohol use: No Drug use: No FAMILY HISTORY Problem Relation Age of Onset Diabetes Maternal Grandmother other (sleep apnea) Maternal Grandmother Asthma Father Heart Mother hypertrophic cardiomyopathy The review of systems data was entered by the nurse and reviewed by il Nursing Notes: Fidelina Downing RN 12/29/2023 11:33 [...] mumps, denies (more content not included)... Normal [facility] 36on 07-25-2023 36 Please call patient to offer an in-office ER follow-up in 1-2 weeks with PCP or other available yellow pod provider if symptoms persist or worsen. Currently scheduled for 08/11/23, can just keep this appointment for ER follow-up unless pt wants to be seen sooner due to symptoms. Normal [facility] Progress Noteon 07-25-2023 Progress Note Chart reviewed of ED follow up Seen in [facility] ED on 07/22/23 Reason: Abdominal pain Discharge instructions: Follow up with PCP as needed Attempted to call patient. Voice mail is not set up. ED message and education sent via [employer] [facility] 36on 07-13-2023 36 noted Normal [facility] 36 S-Pt left message wi th Telephone Agent that she missed her period R-NO CONTACT X 2 Unable to leave message as no Voice Mail set up Reason for Disposition ? Unable to complete triage due to phone connection issues Protocols used: No Contact or Duplicate Contact Bodi-MRVKO-CD [facility] 36on 05-26-2023 36 Sent [employer] message to patient stating that a Zofran refill will be provided to last until her General Surgery appointment, but she should ask for further refills from the surgeon after appointment. [facility] 36 Could not leave a me ssage will send a letter to schedule [address] 05-24-2023 36 Could not leave a will try again later [place] [id number] Prescription request reviewed for compliance with C guidelines. Refill not recommended due to ordered for up to 7 days. Please schedule patient for well woman with PAP with PCP as soon as possible. [place] [address] 04-18-2023 36 Appt made 04/27 [facility] 36 Please call patient to schedule in-office soonest available appointment with PCP for follow-up to discuss irregular menses and reassess abdominal pain. [address] 04-17-2023 36 Last apt 03/27/23. Ne xt apt not scheduled yet. Normal [facility] CBC panel Auto (Bld)Ordered By: Yuliana Hood on 03-27-2023 Erythrocyte distribution width (RBC) [Ratio] 14.7 % High 11.5 - 14.5 % [facility] Hematocrit (Bld) [Volume fraction] 37.6 % 35.0 - 47.0 % [facility] Hemoglobin (Bld) [Mass/Vol] 12.5 g/dL 11.7 - 16.0 g/dL [facility] Interpretation and review of laboratory results Abnormal [facility] MCH (RBC) [Entitic mass] 27.8 pg 26.0 - 34.[address] [facility] MCHC (RBC) [Mass/Vol] 33.2 % 32.0 - 36.0 % [facility] MCV (RBC) [Entitic vol] 83.8 fL 80.0 - 98.[address] [facility] Platelet mean volume (Bld) [Entitic vol] 9.0 fL 7.4 - 12.[address] [facility] Platelets (Bld) [#/Vol] 283 10*3/uL 140 - 440 10*3/uL [facility] RBC (Bld) [#/Vol] 4.49 10*6/uL 3.8 - 5.20 10*6/uL [facility] WBC (Bld) [#/Vol] 8.4 10*3/uL 3.6 - 10.7 10*3/uL [facility] Comprehensive metabolic 1998 panelon 03-27-2023 Albumin [Mass/Vol] 4.4 g/dL 3.5 - 5.0 g/dL [facility] ALP [Catalytic activity/Vol] 80 U/L 38 - 126 U/L [facility] ALT [Catalytic activity/Vol] 19 U/L 0 - 34 U/L [facility] Anion gap [Moles/Vol] 8 mmol/L 3 - 13 mmol/L [facility] AST [Catalytic activity/Vol] 25 U/L 15 - 46 U/L [facility] Bilirubin [Mass/Vol] 0.4 mg/dL 0.2 - 1 .3 mg/dL [facility] Calcium [Mass/Vol] 9.2 mg/dL 8.4 - 10. 4 mg/dL [facility] Chloride [Moles/Vol] 105 mmol/L 98 - 10 7 mmol/L [facility] CO2 [Moles/Vol] 25 mmol/L 22 - 30 mmol/L [facility] Creatinine [Mass/Vol] 0.83 mg/dL 0.52 - 1.04 mg/dL [facility] GFR/1.73 sq M.predicted MDRD (S/P/Bld) [Vol rate/Area] - PINF [facility] Comment on above: Calculation based on the Chronic Kidney Disease Epidemiology Collaboration (CKD-EPI) equation refit without adjustment for race Glucose [Mass/Vol] 101 mg/dL High 70 - 100 mg/dL [facility] Interpretation and review of laboratory results Abnormal [facility] Potassium [Moles/Vol] 4.2 mmol/L 3.5 - 5.1 mmol/L [facility] Protein [Mass/Vol] 7.8 g/dL 6.3 - 8.2 g/dL [facility] Sodium [Moles/Vol] 138 mmol/L 135 - 145 mmol/L [facility] Urea nitrogen [Mass/Vol] 11 mg/dL 7 - 17 mg/dL [facility] HCG ( test) Ql (U)O rdered By: Heydi Lowry on 03-27-2023 Beta HCG ( test) Ql (U) [id number] [facility] Interpretation and review of laboratory results Normal [facility] NEGATIVE QC Pass Apptive POSITIVE QC Pass Appt[facility] Preg Test, Ur Negative Negative [facility] - Chemistry and C hemistry - challengeon 03-27-2023 Lipase [Catalytic activity/Vol] 113 U/L 23 - 300 U/L [facility] Lipase [Catalytic activity/V ol]on 03-27-2023 Interpretation and review of laboratory results Normal [facility] No Panel Informationon 03-27 App[facility] No Panel InformationOrdered By: Victor M Foster on 12-05-2022 P [place] 62 degrees Apptive Work Phone: [place] Interval 151 ms [facility] Phone: QRS [place] 19 degrees [facility] Phone: QRSD Interval 81 ms [facility] Phone: [phone] QT Interval 352 ms [facility] Phone: [phone] QTC Interval 447 ms [facility] Phone: T Wave [place] 26 degrees [facility] Phone: [facility] Phone: No Panel Informationon 12-05 Sinus rhythm Probable left atrial enlargement Electronically Signed On 12-05-2022 20:00:26 EDT by Victor M Foster CV Victor M Conner MD - 12/05/2022 IMPRESSION: Sinus rhythm Probable left atrial enlargement Electronically Signed On 12-05-2022 20:00:26 EDT by Victor M Foster [facility] Vital signsOrdered By: Mario Foster on 12-05-2022 Heart rate 97 /min bpm [facility] Client24 Work Phone: CR Spine Cervical 2 or 3 Vie wson 11-01-2020 CR Spine Cervical 2 or 3 Views [facility]: [id number]iology ACCESSION EXAM DATE/TIME PROCEDURE ORDERING PROVIDER [id number] 11/01/2020 20:08 EDT CR Spine Cervical 2 or 3 VIANEY ANN CPT code 36316 Reason For Exam (CR Spine Cervical 2 [...] Transcribed Date and Time: 11/01/2020 8:13 Normal [facility] ED Provider Noteon ED Provider Note Emergency Department Encounter [facility] EMERGENCY DEPT Patient: Agueda Lewis : 1995 Date of Evaluation: 11/01/2020 ED Provider: Vianey Ann PA-C As the RBL-zh-ullhoe, I performed a medical screening history and [...] the upper extremities. Symmetric radial pulses. Decreased duct layer strength on the right hand compared to [...] [employer] Vianey Ann PA-C 11/01/201952 [facility] Patient: Agueda Lewis : [...] no issues, but cannot feel it moving [place] I was wearing a surgical mask for the entirety of this encounter. Does this patient come from an ECF, SNF, Rehab, Mcfp or other Congregate setting: Home (If yes to above patient needs a Covid-19 test) Agueda Lewis is a 25 y.o. female whopresents to the emergency department today with complaints of numbness and tingling to her right upper extremity. 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 Past History History reviewed. No pertinent past [...] Gatherings with Friends and Family: ? Attends Holiness Services: ? Active Member of Clubs or [...] than 2 (more content not included)... Normal [facility] [employer] System XR CERVICAL SPINE (2-3 VIEWS )Ordered By: Vianey Ann on 11-01-2020 Patient Name: AGUEDA AC Diagnostic Radiology ACCESSION EXAM DATE/TIME PROCEDURE ORDERING PROVIDER [id number] 11/01/2020 20:08 EDT CR Spine Cervical 2 or 3 HAVERCHAK, VIANEY Views CPT code 54494 Reason For Exam (CR Spine Cervical 2 [...] Time: 11/01/2020 8:13 [facility] Work Phone: Nam, [facility] Incoming Radiology Results From [facility] - 11/01/2020 8:16 PM EDT [facility]: [id number] Diagnostic Radiology ACCESSION EXAM DATE/TIME PROCEDURE ORDERING PROVIDER [id number] 11/01/2020 20:08 EDT CR Spine Cervical 2 or 3 HAVERCHAK, VIANEY Views CPT code 37516 Reason For Exam (CR Spine Cervical 2 [...] WENDELL Transcribed Date and Time: 11/01/2020 8:13 [facility] Work Phone: [facility] Work Phone: XR KNEE 4V AP/LAT/OBLS LTon [...] are unremarkable. IMPRESSION: No acute radiographic abnormality. Berry Picker: AMIE Transcribe Date/Time: Aug 11 2020 3:23A Dictated by : VINCE ECHOLS MD This examination was interpreted and the report reviewed and electronically signed by: VINCE ECHOLS MD on Aug 11 2020 3:25AM EST Normal [facility] XR KNEE 4V AP/PA BOTH+LAT/ME R LTon [...] tissues appear normal. IMPRESSION: Within normal limits. Berry Picker: [facility] Transcribe Date/Time: Jul 27 2020 7:52A Dictated by : MOLLY HARVEY MD This examination was interpreted and the report reviewed and electronically signed by: MOLLY HARVEY MD on Jul 27 2020 7:53AM EST Normal [facility] EMERGENCY REPORTon EMERGENCY REPORT [facility] EMERGENCY ROOM REPORT NAME ACCOUNT SEX AGE ADMIT DISCHARGE PT MED. RECORD# NUMBER DATE DATE TYPE JOSHUA [id number] F 24 11/13/19 11/13/19 Millie PASCAL [id number] ROOM: ER DATE OF : 1995 DICTATING [...] as noted. Laboratory Page 1 of 2 AGUEDA LEWIS Emergency [...] Michele Reynolds MD 11/13/19 13:23 JOB #: [id number] Transcribed By: margot 11/13/19 18:28 Electronically signed by: MEHREEN Reynolds M.D. 11/16/19 07:04 Page 2 of 2 JOSHUA AGUEDA Emergency Room Report Normal [facility] CBC + DIFFon 11-13-2019 Basophils (Bld) [#/Vol] 0.00 x10EE3/UL Normal 0.00 - 0.10 [facility] Comment on above: Performed By: #### 2 [id number] #### [facility],[address] [place] [address] 07643 Basophils/100 WBC (Bld) 0.5 % Normal 0.0 - 2.0 [facility] Comment on above: Performed By: #### 2 06466 #### [facility],[address] [place] [address] 50132 CBC + DIFF Normal [facility] Comment on above: Result Comment: CBC- COMPLETE BLOOD COUNT Performed By: #### 2 79290 #### [facility],[address] [place] [address] 03858 Eosinophils (Bld) [#/Vol] 0.20 x10EE3/UL Normal 0.00 - 0.50 [facility] Comment on above: Performed By: #### 2 48847 #### [facility],[address] [place] [address] 71367 Eosinophils/100 WBC (Bld) 2.3 % Normal 0.0 - 7.0 [facility] Comment on above: Performed By: #### 2 12513 #### [facility],[address] [place] [address] 68098 Erythrocyte distribution width (RBC) [Ratio] 16.0 % High 12.0 - 15.6 [facility] Comment on above: Performed By: #### 2 41716 #### [facility],[address] [place] [address] 46592 Hematocrit (Bld) [Volume fraction] 32.5 % Low 34.0 - 46.0 [facility] Comment on above: Performed By: #### 2 22169 #### [facility],[address] [place] [address] 43237 Hemoglobin (Bld) [Mass/Vol] 10.4 g/dL Low 12.0 - 16.0 [facility] Comment on above: Performed By: #### 2 61211 #### [facility],[address] [place] [address] 73424 Lymphocytes (Bld) [#/Vol] 1.40 x10EE3/UL Normal 0.80 - 2.80 [facility] Comment on above: Performed By: #### 2 22915 #### [facility],[address] [place] [address] 12228 Lymphocytes/100 WBC (Bld) 13.4 % Low 20.0 - 45.0 [facility] Comment on above: Performed By: #### 2 82442 #### [facility],[address] [place] [address] 28731 MANUAL DIFF N/A Normal [facility] Comment on above: Performed By: #### 2 28333 #### [facility],[address] [place] [address] 40284 MCH (RBC) [Entitic mass] 23 pg Low 27 - 33 [facility] Comment on above: Performed By: #### 2 25832 #### [facility],[address] [place] [address] 01896 MCHC (RBC) [Mass/Vol] 32 X10 3 Normal 32 - 36 [facility] Comment on above: Performed By: #### 2 58961 #### [facility],[address] [place] [address] 12181 MCV (RBC) [Entitic vol] 73 fL Low 80 - 99 [facility] Comment on above: Performed By: #### 2 22163 #### [facility],[address] [place] [address] 45806 Monocytes (Bld) [#/Vol] 0.80 x10EE3/UL Normal 0.20 - 1.00 [facility] Comment on above: Performed By: #### 2 99697 #### [facility],[address] [place] [address] 33260 MONOS % 7.4 % Normal 0.0 - 10.0 [facility] Comment on above: Performed By: #### 2 85518 #### [facility],[address] [place] [address] 36356 Morphology Adria (Bld) [Interp] N/A Normal [facility] Comment on above: Performed By: #### 2 60172 #### [facility],[address] [place] [address] 16199 Neutrophils (Bld) [#/Vol] 7.90 x10EE3/UL High 1.50 - 7.10 [facility] Comment on above: Performed By: #### 2 70784 #### [facility],[address] [place] [address] 37129 Neutrophils/100 WBC (Bld) 76.4 % High 46.0 - 76.0 [facility] Comment on above: Performed By: #### 2 26391 #### [facility],[address] [place] [address] 31612 Platelet mean volume (Bld) [Entitic vol] 9.0 fL Normal 6.6 - 10.5 [facility] Comment on above: Result Comment: AUTO MATED DIFFERENTIAL Performed By: #### 2 71328 #### [facility],[address] [place] [address] 74863 Platelets (Bld) [#/Vol] 275 x10EE3/UL Normal 150 - 450 [facility] Comment on above: Performed By: #### 2 00053 #### [facility],[address] [place] [address] 01282 RBC (Bld) [#/Vol] 4.47 x 10EE6/UL Normal 4.10 - 5.30 [facility] Comment on above: Performed By: #### 2 36671 #### [facility],[address] [place] [address] 06947 WBC (Bld) [#/Vol] 10.3 x 10EE3/UL Normal 4.5 - 10.8 [facility] Comment on above: Performed By: #### 2 28978 #### [facility],[address] [place] [address] CMP with eGFRon 11-13-2019 Age - Reported 24 years Normal [facility] Comment on above: Performed By: #### 2 51851 #### [facility],[address] [place] [address] 60214 Albumin [Mass/Vol] 4.0 g/dL Normal 3.4 - 4.8 [facility] Comment on above: Performed By: #### 2 50408 #### [facility],[address] [place] [address] 79486 Albumin/Globulin [Mass ratio] 1.3 {ratio} Normal 0.9 - 1.6 [facility] Comment on above: Performed By: #### 2 57029 #### [facility],[address] [place] [address] 10023 ALK PHOS 70 U/L Normal 38 - 126 [facility] Comment on above: Performed By: #### 2 95526 #### [facility],[address] [place] [address] 68574 ALT/SGPT 13 U/L Normal 8 - 35 [facility] Comment on above: Performed By: #### 2 82474 #### [facility],[address] [place] [address] 37627 Anion gap [Moles/Vol] 10 mmol/L Normal 10 - 20 [facility] Comment on above: Performed By: #### 2 63563 #### [facility],[address] [place] [address] 12964 AST/SGOT 19 U/L Normal 13 - 39 [facility] Comment on above: Performed By: #### 2 36772 #### [facility],[address] [place] [address] 88835 B/C RATIO 10 ratio Normal 0 - 30 [facility] Comment on above: Performed By: #### 2 65308 #### [facility],[address] [place] [address] 56265 Bilirubin [Mass/Vol] 0.3 mg/dL Normal 0.0 - 1.5 [facility] Comment on above: Performed By: #### 2 70152 #### [facility],[address] [place] [address] 30873 Calcium [Mass/Vol] 9.1 mg/dL Normal 8.6 - 10.2 [facility] Comment on above: Performed By: #### 2 01703 #### [facility],[address] [place] [address] 59499 Chloride [Moles/Vol] 107 mmol/L Normal 98 - 107 [facility] Comment on above: Performed By: #### 2 62942 #### [facility],[address] [place] [address] 74919 CO2 [Moles/Vol] 24.6 mmol/L Normal 21.0 - 31.0 [facility] Comment on above: Performed By: #### 2 09197 #### [facility],[address] [place] [address] 67225 Creatinine [Mass/Vol] 1.0 mg/dL Normal 0.6 - 1.2 [facility] Comment on above: Performed By: #### 2 10110 #### [facility],[address] [place] [address] 43869 GFR/1.73 sq M predicted among non-blacks MDRD (S/P/Bld) [Vol rate/Area] Normal [facility] Comment on above: Result Comment: COMP REHENSIVE METABOLIC PANEL Performed By: #### 2 04639 #### [facility],[address] [place] [address] 28699 GFR/1.73 sq M predicted among non-blacks MDRD (S/P/Bld) [Vol rate/Area] mL/min/{1.73_m2} Normal 60 - 999 [facility] Comment on above: Performed By: #### 2 06254 #### [facility],[address] [place] [address] 42647 Result Comment: ACCO RDING TO THE NATIONAL KIDNEY DISEASE EDUCATION PROGRAM(NKDE), A NORMAL eGFR IS A VALUE GREATER THAN OR EQUAL TO 60 ML/MIN/1.73 SQ METERS. CHRONIC KIDNEY DISEASE: <60mL/MIN/1.73 SQ METERS KIDNEY FAILURE: <15mL/MIN/1.73 SQ METERS THIS TEST SHOULD ONLY BE USED FOR PATIENTS 18 YEARS OF AGE AND OLDER. Globulin (S) [Mass/Vol] 3.0 g/dL Normal 1.5 - 3.8 [facility] Comment on above: Performed By: #### 2 14463 #### [facility],[address] [place] [address] 16292 Glucose [Mass/Vol] 90 mg/dL Normal 74 - 106 [facility] Comment on above: Performed By: #### 2 67553 #### [facility],[address] [place] [address] 91348 Potassium [Moles/Vol] 3.8 mmol/L Normal 3.5 - 5.1 [facility] Comment on above: Performed By: #### 2 44573 #### [address] [address] Protein [Mass/Vol] 7.0 g/dL Normal 6.4 - 8.3 [facility] Comment on above: Performed By: #### 2 02169 #### [place] [address] Sodium [Moles/Vol] 138 mmol/L Normal 136 - 145 [facility] Comment on above: Performed By: #### 2 15896 #### [place] [address] Urea nitrogen [Mass/Vol] 10 mg/dL Normal 6 - 20 [facility] Comment on above: Performed By: #### 2 34988 #### [place] [address] TSHon 11-13-2019 TSH Qn 0.60 uIU/ml Normal 0.34 - 5.60 [facility] Comment on above: Performed By: #### 2 75227 #### [place] [id number] URINALYSISon 11-13-2019 Amorphous NONE Normal [facility] Comment on above: Performed By: #### 2 96744 #### [place] [id number] Bacteria LM.HPF (Urine sed) [#/Area] TRACE Normal [facility] Comment on above: Performed By: #### 2 99237 #### [address] [address] Bilirubin [Mass/Vol] Negative Normal NORMAL: NEGATIVE [facility] Comment on above: Performed By: #### 2 35841 #### [address] [address] Blood 250 Abnormal NORMAL: NEGATIVE [facility] Comment on above: Performed By: #### 2 50419 #### [facility],[address] [place], [place] [phone] Casts LM.LPF (Urine sed) [#/Area] NONE Normal [facility] Comment on above: Performed By: #### 2 67858 #### [facility],[address] [place] [address] Clarity (U) clear Normal NORMAL: CLEAR [facility] Comment on above: Performed By: #### 2 03934 #### [facility],[address] [place] [address] Color (U) p.yel Normal NORMAL: YELLOW [facility] Comment on above: Performed By: #### 2 24048 #### [facility],[address] [place] [address] Crystals LM Nom (Urine sed) NONE Normal [facility] Comment on above: Performed By: #### 2 37640 #### [facility],[address] [place], [place] [phone] Epi Cells OCC Normal [facility] Comment on above: Performed By: #### 2 37748 #### [facility],[address] [place] [address] 05217 Glucose [Mass/Vol] NORM Normal NORMAL: NORMAL [facility] Comment on above: Performed By: #### 2 18779 #### [facility],[address] [place] [address] 13497 Ketone Negative Normal NORMAL: NEGATIVE [facility] Comment on above: Performed By: #### 2 24006 #### [facility],[address] [place] [address] 55553 Microscopic SEE BELOW Normal [facility] Comment on above: Result Comment: MICR OSCOPIC Performed By: #### 2 81613 #### [facility],[address] [place], [place] [phone] Mucous NONE Normal [facility] Comment on above: Performed By: #### 2 63271 #### [facility],[address] [place], [place] [phone] Nitrite Ql (U) Negative Normal NORMAL: NEGATIVE [facility] Comment on above: Performed By: #### 2 22769 #### [facility],[address] [place] [address] pH (Bld) 5 Normal NORMAL: 5.0-8.0 [facility] Comment on above: Performed By: #### 2 89827 #### [facility],[address] [place] [address] Protein (U) [Mass/Vol] Negative Normal JESSICA L: NEGATIVE [facility] Comment on above: Performed By: #### 2 32461 #### [facility],[address] [place] [address] Rbc 0-5 Normal 0-3/hpf [facility] Comment on above: Performed By: #### 2 41699 #### [facility],[address] [place] [address] Sp [place] 1.010 Normal NORMAL: 1.010-1.030 [facility] Comment on above: Performed By: #### 2 11134 #### [facility],[address] [place] [address] Specimen type Nom (Spec) Void Normal [facility] Comment on above: Performed By: #### 2 79814 #### [facility],[address] [place], [place] [phone] Urobilinog NORM Normal NORMAL: NORMAL [facility] Comment on above: Performed By: #### 2 29327 #### [facility],[address] [place] [address] 37184 Wbc 1-5 Normal 0-5/hpf [facility] Comment on above: Performed By: #### 2 10411 #### [facility],[address] [place] [address] 15689 WBC (Bld) [#/Vol] Negative Normal NORMAL: NEGATIVE [facility] Comment on above: Performed By: #### 2 46268 #### [facility],[address] [place], [place] [phone] Yeast LM Ql (Urine sed) NONE Normal [facility] Comment on above: Performed By: #### 2 83390 #### [facility],[address] [place] [address] 14760 EMERGENCY REPORTon 0 EMERGENCY REPORT [facility] EMERGENCY ROOM REPORT NAME ACCOUNT SEX AGE ADMIT DISCHARGE PT MED. RECORD# NUMBER DATE DATE TYPE JOSHUA [id number] F 11/05/19 11/05/19 3 AGUEDA [id number] ROOM: ER DATE OF : 1995 DICTATING [...] Marcy Guardado DO 11/05/19 20:35 JOB #: [id number] Transcribed By: sharron 11/05/19 21:55 Electronically signed by: E-Sign: Marcy Guardado D.O. 11/06/19 02:46 Page 2 of 2 AGUEDA LEWIS Emergency Room Report Normal [facility] ALC ETHANOLon 05-13-2017 ALC ETHANOL < 3.0 Normal <10.0 [facility] Comment on above: Order Comment: UNKNO WN Result Comment: UNCO NFIRMED Toxicology results. For MEDICAL purposes only. Performed By: #### L 500.07066, L500.22249, L500.88087 ####Test performed at: [place] [id number] BASIC MET PANELon 05-13-2017 Anion gap 12 mmol/L Normal 6-18 [facility] Comment on above: Order Comment: UNKNO WN Performed By: #### L 500.46268, L500.50253, L500.57157 ####Test performed at: [place] [id number] Calcium 8.5 mg/dL Normal 8.5-10.1 [facility] Comment on above: Order Comment: UNKNO WN Performed By: #### L 500.71776, L500.79125, L500.56109 ####Test performed at: [place] [id number] Chloride 109 mmol/L High 98-107 [facility] Comment on above: Order Comment: UNKNO WN Performed By: #### L 500.26934, L500.42171, L500.08006 ####Test performed at: [address] [address] CO2 24 mmol/L Normal 21-32 [facility] Comment on above: Order Comment: UNKNO WN Performed By: #### L 500.16931, L500.48079, L500.19228 ####Test performed at: [address] [address] Creatinine 0.918 mg/dL Normal 0.550-1.020 [facility] Comment on above: Order Comment: UNKNO WN Performed By: #### L 500.42658, L500.89653, L500.84089 ####Test performed at: [address] [address] Glucose mass conc 84 mg/dL Normal 74-106 [facility] Comment on above: Order Comment: UNKNO WN Performed By: #### L 500.61297, L500.27987, L500.96303 ####Test performed at: [address] [address] OSM 291 mosm/kg Normal 270-300 [facility] Comment on above: Order Comment: UNKNO WN Performed By: #### L 500.29165, L500.20780, L500.06290 ####Test performed at: [address] [address] Potassium molar conc 4.0 mmol/L Normal 3.5-5.1 [facility] Comment on above: Order Comment: UNKNO WN Performed By: #### L 500.44356, L500.25124, L500.69577 ####Test performed at: [address] [address] Sodium 141 mmol/L Normal 136-145 [facility] Comment on above: Order Comment: UNKNO WN Performed By: #### L 500.59811, L500.87846, L500.32674 ####Test performed at: [address] [address] Urea nitrogen 12 mg/dL Normal 7-18 [facility] Comment on above: Order Comment: UNKNO WN Performed By: #### L 500.39646, L500.42922, L500.26212 ####Test performed at: [address] [address] CBC W/DIFFon 05-13-2017 BASO ABS 0.1 K/uL Normal 0.0-0.2 [facility] Comment on above: Order Comment: UNKNO WN Performed By: #### L 500.20166, L500.71944, L500.66871 ####Test performed at: [address] [address] Basophils/100 WBC Auto (Bld) 0.7 % Normal [facility] Comment on above: Order Comment: UNKNO WN Performed By: #### L 500.78074, L500.65433, L500.72274 ####Test performed at: [address] [address] EOS ABS 0.2 K/uL Normal 0.0-0.5 [facility] Comment on above: Order Comment: UNKNO WN Performed By: #### L 500.34198, L500.23899, L500.48078 ####Test performed at: [address] [address] Eosinophils/100 leukocytes 3.0 % Normal [facility] Comment on above: Order Comment: UNKNO WN Performed By: #### L 500.29413, L500.00593, L500.49441 ####Test performed at: [address] [address] Erythrocyte distribution width Auto Ratio (RBC) 15.6 % High 11.5-14.5 [facility] Comment on above: Order Comment: UNKNO WN Performed By: #### L 500.27772, L500.01395, L500.72704 ####Test performed at: [address] [address] Erythrocytes (RBC) 0.000 10*6/uL Normal 0-0.012 [facility] Comment on above: Order Comment: UNKNO WN Performed By: #### L 500.46856, L500.05192, L500.72287 ####Test performed at: [address] [place] [address] Erythrocytes (RBC) 4.05 10*6/uL Normal 3.5-5.5 [facility] Comment on above: Order Comment: UNKNO WN Performed By: #### L 500.03628, L500.78173, L500.41704 ####Test performed at: [place] [address] Hematocrit (HCT) 31.7 % Low 36.0-48.0 [facility] Comment on above: Order Comment: UNKNO WN Performed By: #### L 500.19787, L500.12244, L500.28369 ####Test performed at: [place] [address] Hemoglobin mass conc (Bld) 10.0 g/dL Low 12.0-15.0 [facility] Comment on above: Order Comment: UNKNO WN Performed By: #### L 500.63335, L500.29854, L500.77519 ####Test performed at: [place] [id number] IG % 0.3 % Normal [facility] Comment on above: Order Comment: UNKNO WN Performed By: #### L 500.69285, L500.66093, L500.56799 ####Test performed at: [place] [id number] IG ABS 0.02 K/uL Normal 0-0.05 [facility] Comment on above: Order Comment: UNKNO WN Performed By: #### L 500.27341, L500.80195, L500.94503 ####Test performed at: [place] [id number] Lymphocytes 2.7 10*3/uL Normal 1.2-3.5 [facility] Comment on above: Order Comment: UNKNO WN Performed By: #### L 500.70039, L500.34135, L500.45895 ####Test performed at: [address] [address] Lymphocytes/100 leukocytes 36.2 % Normal [facility] Comment on above: Order Comment: UNKNO WN Performed By: #### L 500.55453, L500.44626, L500.93310 ####Test performed at: [address] [address] MCH 24.7 pg Low 25.4-34.6 [facility] Comment on above: Order Comment: UNKNO WN Performed By: #### L 500.91374, L500.85239, L500.98978 ####Test performed at: [address] [address] MCHC mass conc (RBC) 31.5 g/dL Normal 31.5-36.5 [facility] Comment on above: Order Comment: UNKNO WN Performed By: #### L 500.60748, L500.95557, L500.16010 ####Test performed at: [address] [address] MCV 78.3 fL Low 79.0-98.0 [facility] Comment on above: Order Comment: UNKNO WN Performed By: #### L 500.03434, L500.03592, L500.78720 ####Test performed at: [address] [address] MONO ABS 0.6 K/uL Normal 0.0-1.0 [facility] Comment on above: Order Comment: UNKNO WN Performed By: #### L 500.29286, L500.73073, L500.21556 ####Test performed at: [address] [address] Monocytes/100 leukocytes 7.7 % Normal [facility] Comment on above: Order Comment: UNKNO WN Performed By: #### L 500.45043, L500.58830, L500.13493 ####Test performed at: [address] [address] Neutrophils 3.8 10*3/uL Normal 1.4-6.6 [facility] Comment on above: Order Comment: UNKNO WN Performed By: #### L 500.57280, L500.34288, L500.85963 ####Test performed at: [address] [address] Neutrophils/100 WBC Auto (Bld) 52.1 % Normal [facility] Comment on above: Order Comment: UNKNO WN Performed By: #### L 500.76599, L500.95556, L500.22142 ####Test performed at: [address] [address] NRBC % 0.0 /100 WBC Normal 0-0.2 [facility] Comment on above: Order Comment: UNKNO WN Performed By: #### L 500.05984, L500.65042, L500.33450 ####Test performed at: [address] [address] Platelet mean volume (PMV) 10.5 fL Normal 8.7-12.4 [facility] Comment on above: Order Comment: UNKNO WN Performed By: #### L 500.79738, L500.09549, L500.10099 ####Test performed at: [address] [address] Platelets 288 10*3/uL Normal 140-440 [facility] Comment on above: Order Comment: UNKNO WN Performed By: #### L 500.77111, L500.45115, L500.48715 ####Test performed at: [address] [address] WBC (Leukocytes) 7.4 10*3/uL Normal 3.9-11.0 [facility] Comment on above: Order Comment: UNKNO WN Performed By: #### L 500.65802, L500.03451, L500.54931 ####Test performed at: [place] [address] EST. CREAT CLRon 05-13-2017 Creatinine 160.543 ML/MIN Normal [facility] Comment on above: Order Comment: UNKNO WN Result Comment: This result is an ESTIMATED blood creatinine clearance valuewhich is derived from the patient age, sex, weight, andprevious blood creatinine result. Performed By: #### L 500.35794, L500.77013, L500.44956 ####Test performed at: [place] [address] Terrell 05-13-2017 FERR 24.7 ng/mL Normal 8-252 [facility] Comment on above: Order Comment: UNKNO WN Performed By: #### L 500.94072, L500.25491, L500.12965 ####Test performed at: [place] [address] GFR ESTIMATEon 05-13-2017 IF AMER > 60 Normal > 60 [facility] Comment on above: Order Comment: UNKNO WN Result Comment: eGFR (Estimated GFR) Units of measure:mL/min/1.73 meters sq.*CALCULATION REVISED 03/10/2015;IDMS-traceable MDRD equationeGFR is derived from the reexpressed MDRD Study equationusing the following parameters: serum creatinine, age,gender and race. An eGFR<60 mL/min/1.73m2 for >3 monthsis consistent with chronic kidney disease. Refer to KDOQIguidelines for clinical interpretation. Performed By: #### L 500.22843, L500.70328, L500.03414 ####Test performed at: [place] [address] IF non-AFR AMER > 60 Normal > 60 [facility] Comment on above: Order Comment: UNKNO WN Performed By: #### L 500.55689, L500.91073, L500.82867 ####Test performed at: [address] [address] IRON PANELon 05-13-2017 Iron 25 ug/dL Low 50-170 [facility] Comment on above: Order Comment: UNKNO WN Performed By: #### L 500.98270, L500.91526, L500.43615 ####Test performed at: [address] [address] IRON SAT 12 % Low 25-35 [facility] Comment on above: Order Comment: UNKNO WN Performed By: #### L 500.96975, L500.81421, L500.88396 ####Test performed at: [place] [id number] TIBC 215 ug/dL Low 250-450 [facility] Comment on above: Order Comment: UNKNO WN Performed By: #### L 500.46872, L500.50918, L500.07238 ####Test performed at: [place] [id number] LIMIT UR TOXon 05-13-2017 PH TOX 5.0 Normal 5.0-8.0 [facility] Comment on above: Order Comment: UNKNO WN Performed By: #### L 500.47847, L500.99722, L500.45926 ####Test performed at: [address] [address] UR AMPH Negative Normal Negative [facility] Comment on above: Order Comment: UNKNO WN Result Comment: CUTO BZ=[id number] Performed By: #### L 500.50664, L500.44009, L500.69481 ####Test performed at: [address] [address] UR NANNETTE Negative Normal Negative [facility] Comment on above: Order Comment: UNKNO WN Result Comment: CUTO OA=804 Performed By: #### L 500.67601, L500.30076, L500.28829 ####Test performed at: [address] [address] UR YANDEL Negative Normal Negative [facility] Comment on above: Order Comment: UNKNO WN Result Comment: CUTO AJ=509 Performed By: #### L 500.08494, L500.24504, L500.09051 ####Test performed at: [place] [address] UR BUPREN/NORBU Negative Normal Negative [facility] Comment on above: Order Comment: UNKNO WN Result Comment: CUTO FF=10 Performed By: #### L 500.31666, L500.13643, L500.12196 ####Test performed at: [place] [place] [id number] UR RADHA/THC Negative Normal Negative [facility] Comment on above: Order Comment: UNKNO WN Result Comment: CUTO FF=50 Performed By: #### L 500.83119, L500.38647, L500.55493 ####Test performed at: [place] [address] UR PAULO Negative Normal Negative [facility] Comment on above: Order Comment: UNKNO WN Result Comment: CUTO HT=121 Performed By: #### L 500.89256, L500.46152, L500.08997 ####Test performed at: [place] [id number] UR ECSTASY Negative Normal Negative [facility] Comment on above: Order Comment: UNKNO WN Result Comment: CUTO SQ=776 Performed By: #### L 500.67598, L500.22093, L500.36929 ####Test performed at: [place] [id number] UR METH Negative Normal Negative [facility] Comment on above: Order Comment: UNKNO WN Result Comment: CUTO HO=916 Performed By: #### L 500.16646, L500.94232, L500.51764 ####Test performed at: [place] [address] UR OPIAT Negative Normal Negative [facility] Comment on above: Order Comment: UNKNO WN Result Comment: CUTO CU=304 Performed By: #### L 500.23652, L500.51718, L500.48443 ####Test performed at: [place] [address] UR OXYCOCONE Negative Normal Negative [facility] Comment on above: Order Comment: UNKNO WN Result Comment: CUTO BY=974 Performed By: #### L 500.72385, L500.87905, L500.52267 ####Test performed at: [place] [id number] UR PCP Negative Normal Negative [facility] Comment on above: Order Comment: UNKNO WN Result Comment: CUTO FF=25 Performed By: #### L 500.02357, L500.65820, L500.30776 ####Test performed at: [place] [address] PROTIMEon 05-13-2017 INR Coag RelTime (PPP) 1.08 {INR} Normal 0.00-1.20 [facility] Comment on above: Order Comment: UNKNO WN Result Comment: Amrik mmended therapeutic range is an INR of 2.0-3.0 exceptfor prevention of recurrent acute IA and mechanicalprosthetic heart valve where an INR of 2.5-3.5 isrecommended. Performed By: #### L 500.36307, L500.10283, L500.71059 ####Test performed at: [place] [id number] PT SEC 11.0 seconds Normal 9.3-11.2 [facility] Comment on above: Order Comment: UNKNO WN Performed By: #### L 500.22649, L500.11788, L500.96213 ####Test performed at: [place] [id number] PTTon 05-13-2017 aPTT 26.3 s Normal 22.8-32.5 [facility] Comment on above: Order Comment: UNKNO WN Performed By: #### L 500.51600, L500.51121, L500.60701 ####Test performed at: [place] [address] TROPONIN QUANTon 05-13-2017 Troponin I.cardiac mass conc ng/mL Normal 0.01-0.045 [facility] Comment on above: Order Comment: UNKNO WN Performed By: #### L 500.58924, L500.32480, L500.78458 ####Test performed at: [place] [address] UA COMPLETEon 05-13-2017 Bilirubin (total) Negative Normal NEGATIVE [facility] Comment on above: Order Comment: UNKNO WN Performed By: #### L 500.49929, L500.11858, L500.47344 ####Test performed at: [place] [id number] BLOOD >=1.0 mg/dL Invalid Interpretation Code NEGATIVE [facility] Comment on above: Order Comment: UNKNO WN Performed By: #### L 500.78688, L500.07194, L500.41614 ####Test performed at: [place] [id number] EPITH CELLS 6-10 Normal 0-10 [facility] Comment on above: Order Comment: UNKNO WN Performed By: #### L 500.82382, L500.90627, L500.41306 ####Test performed at: [place] [id number] Erythrocytes (RBC) 6-10 Invalid Interpretation Code 0-3 [facility] Comment on above: Order Comment: UNKNO WN Performed By: #### L 500.03066, L500.48558, L500.01594 ####Test performed at: [place] [address] Glucose mass conc Negative Normal NEGATIVE [facility] Comment on above: Order Comment: UNKNO WN Performed By: #### L 500.02367, L500.22548, L500.31456 ####Test performed at: [place] [address] KETONE 5 mg/dl Invalid Interpretation Code NEGATIVE [facility] Comment on above: Order Comment: UNKNO WN Performed By: #### L 500.45728, L500.83985, L500.21303 ####Test performed at: [place] [id number] LEUK ESTERASE 75 [place]/uL Invalid Interpretation Code NEGATIVE [facility] Comment on above: Order Comment: UNKNO WN Performed By: #### L 500.48867, L500.86723, L500.40252 ####Test performed at: [place] [id number] Protein 30 mg/dL Invalid Interpretation Code NEGATIVE [facility] Comment on above: Order Comment: UNKNO WN Performed By: #### L 500.83371, L500.87533, L500.88184 ####Test performed at: [place] [address] SPEC GRAV 1.028 Normal 1.005-1.030 [facility] Comment on above: Order Comment: UNKNO WN Performed By: #### L 500.48625, L500.51893, L500.02825 ####Test performed at: [address] [address] UA ASC ACID Negative Normal [facility] Comment on above: Order Comment: UNKNO WN Performed By: #### L 500.30449, L500.55279, L500.53979 ####Test performed at: [address] [address] UA PH 5.0 Normal 5.0-8.0 [facility] Comment on above: Order Comment: UNKNO WN Performed By: #### L 500.00440, L500.59169, L500.87292 ####Test performed at: [address] [address] Urine, appearance CLOUDY Invalid Interpretation Code CLEAR [facility] Comment on above: Order Comment: UNKNO WN Performed By: #### L 500.17307, L500.25765, L500.05848 ####Test performed at: [address] [address] Urine, color FRANCESCO Invalid Interpretation Code YELLOW [facility] Comment on above: Order Comment: UNKNO WN Performed By: #### L 500.56226, L500.17810, L500.58643 ####Test performed at: [address] [address] Urine, mucus presence in sediment Large Normal [facility] Comment on above: Order Comment: UNKNO WN Performed By: #### L 500.07464, L500.34302, L500.73724 ####Test performed at: [address] [address] Urine, nitrite presence Negative Normal NEGATIVE [facility] Comment on above: Order Comment: UNKNO WN Performed By: #### L 500.21613, L500.52260, L500.28671 ####Test performed at: [place] [address] UROBIL 4.0 mg/dL Invalid Interpretation Code NORMAL [facility] Comment on above: Order Comment: UNKNO WN Performed By: #### L 500.80922, L500.37565, L500.11054 ####Test performed at: [address] [address] WBC (Leukocytes) 6-10 Invalid Interpretation Code 0-5 [facility] Comment on above: Order Comment: UNKNO WN Performed By: #### L 500.96927, L500.19313, L500.96828 ####Test performed at: [address] [address] CBC W/DIFFon 05-12-2017 BASO ABS 0.0 K/uL Normal 0.0-0.2 [facility] Comment on above: Order Comment: UNKNO WN Performed By: #### L 200.90059 ####Test performed at: [address] [address] Basophils/100 WBC Auto (Bld) 0.6 % Normal [facility] Comment on above: Order Comment: UNKNO WN Performed By: #### L 200.85599 ####Test performed at: [address] [address] EOS ABS 0.2 K/uL Normal 0.0-0.5 [facility] Comment on above: Order Comment: UNKNO WN Performed By: #### L 200.43442 ####Test performed at: [address] [address] Eosinophils/100 leukocytes 2.8 % Normal [facility] Comment on above: Order Comment: UNKNO WN Performed By: #### L 200.20419 ####Test performed at: [address] [address] IG % 0.1 % Normal [facility] Comment on above: Order Comment: UNKNO WN Performed By: #### L 200.74474 ####Test performed at: [address] [address] IG ABS 0.01 K/uL Normal 0-0.05 [facility] Comment on above: Order Comment: UNKNO WN Performed By: #### L 200.29601 ####Test performed at: [address] [address] Lymphocytes 2.7 10*3/uL Normal 1.2-3.5 [facility] Comment on above: Order Comment: UNKNO WN Performed By: #### L 200.72148 ####Test performed at: [address] [address] Lymphocytes/100 leukocytes 37.0 % Normal [facility] Comment on above: Order Comment: UNKNO WN Performed By: #### L 200.34182 ####Test performed at: [address] [address] MONO ABS 0.6 K/uL Normal 0.0-1.0 [facility] Comment on above: Order Comment: UNKNO WN Performed By: #### L 200.45243 ####Test performed at: [address] [address] Monocytes/100 leukocytes 8.0 % Normal [facility] Comment on above: Order Comment: UNKNO WN Performed By: #### L 200.28112 ####Test performed at: [address] [address] Neutrophils 3.7 10*3/uL Normal 1.4-6.6 [facility] Comment on above: Order Comment: UNKNO WN Performed By: #### L 200.96405 ####Test performed at: [address] [address] Neutrophils/100 WBC Auto (Bld) 51.5 % Normal [facility] Comment on above: Order Comment: UNKNO WN Performed By: #### L 200.87211 ####Test performed at: [address] [address] Erythrocyte distribution width Auto Ratio (RBC) 15.5 % High 11.5-14.5 [facility] Comment on above: Order Comment: UNKNO WN Performed By: #### L 200.00665 ####Test performed at: [address] [address] Erythrocytes (RBC) 0.000 10*6/uL Normal 0-0.012 [facility] Comment on above: Order Comment: UNKNO WN Performed By: #### L 200.77059 ####Test performed at: [address] [address] Erythrocytes (RBC) 4.20 10*6/uL Normal 3.5-5.5 [facility] Comment on above: Order Comment: UNKNO WN Performed By: #### L 200.21423 ####Test performed at: [place] [id number] Hematocrit (HCT) 33.1 % Low 36.0-48.0 [facility] Comment on above: Order Comment: UNKNO WN Performed By: #### L 200.37402 ####Test performed at: [place] [id number] Hemoglobin mass conc (Bld) 10.4 g/dL Low 12.0-15.0 [facility] Comment on above: Order Comment: UNKNO WN Result Comment: Delt a: 12.8 on 04/22/17 Performed By: #### L 200.48616 ####Test performed at: [address] [address] MCH 24.8 pg Low 25.4-34.6 [facility] Comment on above: Order Comment: UNKNO WN Performed By: #### L 200.25861 ####Test performed at: [place] [address] MCHC mass conc (RBC) 31.4 g/dL Low 31.5-36.5 [facility] Comment on above: Order Comment: UNKNO WN Performed By: #### L 200.39636 ####Test performed at: [place] [address] MCV 78.8 fL Low 79.0-98.0 [facility] Comment on above: Order Comment: UNKNO WN Performed By: #### L 200.40639 ####Test performed at: [place] [address] NRBC % 0.0 /100 WBC Normal 0-0.2 [facility] Comment on above: Order Comment: UNKNO WN Performed By: #### L 200.13970 ####Test performed at: [place] [id number] Platelet mean volume (PMV) 10.6 fL Normal 8.7-12.4 [facility] Comment on above: Order Comment: UNKNO WN Performed By: #### L 200.49462 ####Test performed at: [address] [address] Platelets 318 10*3/uL Normal 140-440 [facility] Comment on above: Order Comment: UNKNO WN Performed By: #### L 200.95958 ####Test performed at: [address] [address] WBC (Leukocytes) 7.2 10*3/uL Normal 3.9-11.0 [facility] Comment on above: Order Comment: UNKNO WN Performed By: #### L 200.65737 ####Test performed at: [place] [id number] COMP META PANELon 05-12-2017 Alanine aminotransferase (ALT) 19 U/L Normal 13-61 [facility] Comment on above: Order Comment: UNKNO WN Performed By: #### L 200.73439 ####Test performed at: [address] [address] Albumin 3.0 g/dL Low 3.4-5.0 [facility] Comment on above: Order Comment: UNKNO WN Performed By: #### L 200.13740 ####Test performed at: [address] [address] ALK PHOS TOTAL 93 U/L Normal 45-117 [facility] Comment on above: Order Comment: UNKNO WN Performed By: #### L 200.20196 ####Test performed at: [place] [id number] Aspartate aminotransferase (AST) 17 U/L Normal 15-37 [facility] Comment on above: Order Comment: UNKNO WN Performed By: #### L 200.06725 ####Test performed at: [place] [address] BILI TOTAL 0.2 mg/dL Normal 0.2-1.0 [facility] Comment on above: Order Comment: UNKNO WN Performed By: #### L 200.03325 ####Test performed at: [place] [address] Calcium 8.5 mg/dL Normal 8.5-10.1 [facility] Comment on above: Order Comment: UNKNO WN Performed By: #### L 200.72544 ####Test performed at: [place] [id number] Chloride 110 mmol/L High 98-107 [facility] Comment on above: Order Comment: UNKNO WN Performed By: #### L 200.32828 ####Test performed at: [place] [address] [address] CO2 24 mmol/L Normal 21-32 [facility] Comment on above: Order Comment: UNKNO WN Performed By: #### L 200.31446 ####Test performed at: [address] [address] Creatinine 1.030 mg/dL High 0.550-1.020 [facility] Comment on above: Order Comment: UNKNO WN Performed By: #### L 200.26397 ####Test performed at: [address] [address] Glucose mass conc 82 mg/dL Normal 74-106 [facility] Comment on above: Order Comment: UNKNO WN Performed By: #### L 200.89929 ####Test performed at: [address] [address] Potassium molar conc 3.8 mmol/L Normal 3.5-5.1 [facility] Comment on above: Order Comment: UNKNO WN Performed By: #### L 200.13573 ####Test performed at: [address] [address] Protein 7.2 g/dL Normal 6.4-8.2 [facility] Comment on above: Order Comment: UNKNO WN Performed By: #### L 200.40232 ####Test performed at: [address] [address] Sodium 141 mmol/L Normal 136-145 [facility] Comment on above: Order Comment: UNKNO WN Performed By: #### L 200.66343 ####Test performed at: [address] [address] Urea nitrogen 11 mg/dL Normal 7-18 [facility] Comment on above: Order Comment: UNKNO WN Performed By: #### L 200.14995 ####Test performed at: [place] [id number] CT THORAX W CON PE PROTOCOLo n 05-12-2017 CT THORAX W CON PE PROTOCOL STUDY:CT THORAX W CON PE PROTOCOL; 05/12/2017 10:15 pmINDICATION:elevated d-dimer, CP.COMPARISON:None.ACCESS ION NUMBER(S):[id number] RDERING CLINICIAN:Vince Garnett:Helical data acquisition of the chest [...] pulmonary emboli cannot be entirely excluded. Normal [facility] D-DIMER QUANTon 05-12-2017 D-DIMER QUANT > 5000 High <500 [facility] Comment on above: Order Comment: UNKNO WN Result Comment: The CUT-OFF value for the evaluation of VenousThromboEmbolism (VTE) is <500 ng/mL FEU. Performed By: #### L 500.66509, L500.60366, L500.94082 ####Test performed at: [place] [address] GFR ESTIMATEon 05-12-2017 IF AMER > 60 Normal > 60 [facility] Comment on above: Order Comment: UNKNO WN Result Comment: eGFR (Estimated GFR) Units of measure:mL/min/1.73 meters sq.*CALCULATION REVISED 03/10/2015;IDMS-traceable MDRD equationeGFR is derived from the reexpressed MDRD Study equationusing the following parameters: serum creatinine, age,gender and race. An eGFR<60 mL/min/1.73m2 for >3 monthsis consistent with chronic kidney disease. Refer to KDOQIguidelines for clinical interpretation. Performed By: #### L 200.76901 ####Test performed at: [place] [address] IF non-AFR AMER > 60 Normal > 60 [facility] Comment on above: Order Comment: UNKNO WN Performed By: #### L 200.27494 ####Test performed at: [place] [address] LIMIT UR TOXon 05-12-2017 TOX COMMENT *PLEASE NOTE: Normal [facility] Comment on above: Order Comment: UNKNO WN Result Comment: UNCO NFIRMED Toxicology results. For MEDICAL purposes only. Performed By: #### L 500.01142, L500.07766, L500.15545 ####Test performed at: [place] [address] MGon 05-12-2017 Magnesium 2.0 mg/dL Normal 1.6-2.6 [facility] Comment on above: Order Comment: UNKNO WN Performed By: #### L 200.39647 ####Test performed at: [place] [address] PORTABLE CHESTon 05-12-2017 PORTABLE CHEST STUDY:PORTABLE CHEST ; 05/12/2017 8:54 pmINDICATION:Chest pain .COMPARISON:04/22/2017ACCE SSION NUMBER(S):[id number] [facility] CLINICIAN:Vince Oquendo:The cardiac silhouette is normal in size. No focal airspaceconsolidation or pleural effusion.No pneumothorax.IMPRESSION:N o airspace consolidation or pleural effusion. Normal [facility] TROPONIN QUANTon 05-12-2017 Troponin I.cardiac mass conc ng/mL Normal 0.01-0.045 [facility] Comment on above: Order Comment: UNKNO WN Performed By: #### L 200.23441 ####Test performed at: [place] [address] UR HCG QUALon 05-12-2017 UR HCG QUAL Negative Normal [facility] Comment on above: Order Comment: UNKNO WN Performed By: #### L 500.27646, L500.86949, L500.43264 ####Test performed at: [place] [address] EKGon 04-25-2017 EKG Acquired on 04/22/20 17 1419Vent. Rate : 064 BPM Atrial Rate : 064 BPMP-R Int : 134 ms QRS Dur : 070 msQT Int : 400 ms P-R-T Axes : 022 037 031 degreesQTc Int : 412 msNormal sinus rhythmNormal ECGNo previous ECGs availableConfirmed by SHARON MCKEON MD ([id number]) on 04/25/2017 9:44:10 AMReferred By: Confirmed By:SHARON MCKEON [id number] 2016 [facility] PT NAME: AL LEWIS#: [id number] [place] [address] ACCT: [id number]: 94EKG REPORT Normal [facility] 13 DRUG PM TOXon 04-22-2017 13 DRUG PM SUM NotDone Normal [facility] Comment on above: Order Comment: UNKNO WN Result Comment: TEST (S): 13 DRUG PM SUM COMMENT: OE CAN REQ PERSON NOTIFIED: Mesfin ARNALDOCANCELLED: 04/22/17 at 1555 by BCAT. Locn:LCA Performed By: #### L 600.29443, L600.59680 ####Test performed at: [address] [address]#### L600.75043 ####Test performed [facility]: [facility] [id number] [place] [id number] CBC W/DIFFon 04-22-2017 BASO ABS 0.0 K/uL Normal 0.0-0.2 [facility] Comment on above: Order Comment: UNKNO WN Performed By: #### L 200.65485 ####Test performed at: [address] [address] Basophils/100 WBC Auto (Bld) 0.4 % Normal [facility] Comment on above: Order Comment: UNKNO WN Performed By: #### L 200.45665 ####Test performed at: [address] [address] EOS ABS 0.2 K/uL Normal 0.0-0.5 [facility] Comment on above: Order Comment: UNKNO WN Performed By: #### L 200.68726 ####Test performed at: [address] [address] Eosinophils/100 leukocytes 1.7 % Normal [facility] Comment on above: Order Comment: UNKNO WN Performed By: #### L 200.63131 ####Test performed at: [address] [address] Erythrocyte distribution width Auto Ratio (RBC) 16.9 % High 11.5-14.5 [facility] Comment on above: Order Comment: UNKNO WN Performed By: #### L 200.69659 ####Test performed at: [address] [address] Erythrocytes (RBC) 5.08 10*6/uL Normal 3.5-5.5 [facility] Comment on above: Order Comment: UNKNO WN Performed By: #### L 200.57513 ####Test performed at: [address] [address] Erythrocytes (RBC) 0.000 10*6/uL Normal 0-0.012 [facility] Comment on above: Order Comment: UNKNO WN Performed By: #### L 200.07684 ####Test performed at: [address] [address] Hematocrit (HCT) 40.7 % Normal 36.0-48.0 [facility] Comment on above: Order Comment: UNKNO WN Performed By: #### L 200.74376 ####Test performed at: [address] [address] Hemoglobin mass conc (Bld) 12.8 g/dL Normal 12.0-15.0 [facility] Comment on above: Order Comment: UNKNO WN Performed By: #### L 200.96454 ####Test performed at: [address] [address] IG % 1.0 % Normal [facility] Comment on above: Order Comment: UNKNO WN Performed By: #### L 200.67753 ####Test performed at: [address] [address] IG ABS 0.09 K/uL High 0-0.05 [facility] Comment on above: Order Comment: UNKNO WN Performed By: #### L 200.09948 ####Test performed at: [address] [address] Lymphocytes 2.6 10*3/uL Normal 1.2-3.5 [facility] Comment on above: Order Comment: UNKNO WN Performed By: #### L 200.83136 ####Test performed at: [address] [address] Lymphocytes/100 leukocytes 27.7 % Normal [facility] Comment on above: Order Comment: UNKNO WN Performed By: #### L 200.05305 ####Test performed at: [place] [id number] MCH 25.2 pg Low 25.4-34.6 [facility] Comment on above: Order Comment: UNKNO WN Performed By: #### L 200.83786 ####Test performed at: [address] [address] MCHC mass conc (RBC) 31.4 g/dL Low 31.5-36.5 [facility] Comment on above: Order Comment: UNKNO WN Performed By: #### L 200.48669 ####Test performed at: [place] [id number] MCV 80.1 fL Normal 79.0-98.0 [facility] Comment on above: Order Comment: UNKNO WN Performed By: #### L 200.14665 ####Test performed at: [address] [address] MONO ABS 0.6 K/uL Normal 0.0-1.0 [facility] Comment on above: Order Comment: UNKNO WN Performed By: #### L 200.33873 ####Test performed at: [address] [address] Monocytes/100 leukocytes 5.9 % Normal [facility] Comment on above: Order Comment: UNKNO WN Performed By: #### L 200.04125 ####Test performed at: [address] [address] Neutrophils 5.9 10*3/uL Normal 1.4-6.6 [facility] Comment on above: Order Comment: UNKNO WN Performed By: #### L 200.78637 ####Test performed at: [address] [address] Neutrophils/100 WBC Auto (Bld) 63.3 % Normal [facility] Comment on above: Order Comment: UNKNO WN Performed By: #### L 200.13734 ####Test performed at: [address] [address] NRBC % 0.0 /100 WBC Normal 0-0.2 [facility] Comment on above: Order Comment: UNKNO WN Performed By: #### L 200.73365 ####Test performed at: [address] [address] Platelet mean volume (PMV) 10.8 fL Normal 8.7-12.4 [facility] Comment on above: Order Comment: UNKNO WN Performed By: #### L 200.34875 ####Test performed at: [address] [address] Platelets 325 10*3/uL Normal 140-440 [facility] Comment on above: Order Comment: UNKNO WN Performed By: #### L 200.26226 ####Test performed at: [address] [address] WBC (Leukocytes) 9.3 10*3/uL Normal 3.9-11.0 [facility] Comment on above: Order Comment: UNKNO WN Performed By: #### L 200.87856 ####Test performed at: [address] [address] COMP META PANELon 04-22-2017 Alanine aminotransferase (ALT) 31 U/L Normal 13-61 [facility] Comment on above: Order Comment: UNKNO WN Performed By: #### L 500.46679, L500.97616, L500.32837 ####Test performed at: [address] [address] Albumin 4.1 g/dL Normal 3.4-5.0 [facility] Comment on above: Order Comment: UNKNO WN Performed By: #### L 500.46858, L500.15768, L500.07306 ####Test performed at: [address] [address] ALK PHOS TOTAL 126 U/L High 45-117 [facility] Comment on above: Order Comment: UNKNO WN Performed By: #### L 500.35686, L500.85586, L500.89424 ####Test performed at: [address] [address] Aspartate aminotransferase (AST) 23 U/L Normal 15-37 [facility] Comment on above: Order Comment: UNKNO WN Performed By: #### L 500.95185, L500.75565, L500.93214 ####Test performed at: [place] [id number] BILI TOTAL 0.4 mg/dL Normal 0.2-1.0 [facility] Comment on above: Order Comment: UNKNO WN Performed By: #### L 500.77310, L500.66300, L500.39881 ####Test performed at: [address] [address] Calcium 9.4 mg/dL Normal 8.5-10.1 [facility] Comment on above: Order Comment: UNKNO WN Performed By: #### L 500.57498, L500.49004, L500.63888 ####Test performed at: [address] [address] Chloride 109 mmol/L High 98-107 [facility] Comment on above: Order Comment: UNKNO WN Performed By: #### L 500.35262, L500.98264, L500.72117 ####Test performed at: [address] [address] CO2 22 mmol/L Normal 21-32 [facility] Comment on above: Order Comment: UNKNO WN Performed By: #### L 500.28253, L500.69200, L500.53604 ####Test performed at: [address] [address] Creatinine 1.040 mg/dL High 0.550-1.020 [facility] Comment on above: Order Comment: UNKNO WN Performed By: #### L 500.18813, L500.64812, L500.80015 ####Test performed at: [address] [address] Glucose mass conc 79 mg/dL Normal 74-106 [facility] Comment on above: Order Comment: UNKNO WN Performed By: #### L 500.69190, L500.84178, L500.41223 ####Test performed at: [place] [id number] Potassium molar conc 4.2 mmol/L Normal 3.5-5.1 [facility] Comment on above: Order Comment: UNKNO WN Performed By: #### L 500.99777, L500.08653, L500.49937 ####Test performed at: [address] [address] Protein 8.5 g/dL High 6.4-8.2 [facility] Comment on above: Order Comment: UNKNO WN Performed By: #### L 500.25978, L500.80603, L500.60320 ####Test performed at: [place] [id number] Sodium 140 mmol/L Normal 136-145 [facility] Comment on above: Order Comment: UNKNO WN Performed By: #### L 500.23410, L500.42976, L500.21926 ####Test performed at: [place] [id number] Urea nitrogen 11 mg/dL Normal 7-18 [facility] Comment on above: Order Comment: UNKNO WN Performed By: #### L 500.90152, L500.34892, L500.06290 ####Test performed at: [facility] [address] [address] [address] HEAD/BRAIN WO CONon 04-22 CT HEAD/BRAIN WO CON STUDY:CT HEAD/BRAIN WO CON; 04/22/2017 3:25 pmINDICATION:head pain .COMPARISON:None.ACCESS N NUMBER(S):[id number] RDERING CLINICIAN:Vince Garnett:CT of the brain from the [...] other extracranial softtissues.IMPRESSION:NO ACUTE INTRACRANIAL PROCESS Normal [facility] CT SINUSES/FACIAL WO CONon 1 06-23-2016 CT SINUSES/FACIAL WO CON STUDY:CT SINUSES/FACIAL WO CON; 04/22/2017 3:36 pmINDICATION:laveration, facial pain .COMPARISON:None.ACCESS N NUMBER(S):[id number] RDERING CLINICIAN:Vince Garnett:CT maxillofacial bones without intravenous contrastFINDINGS:The maxillofacial bones are intact and in good alignment throughout.Soft tissues grossly intact. No large skin defect, subcutaneousradiopaque foreign body or subcutaneous gasSmall mucous retention cysts or polyps in both maxillary sinuses.Elsewhere the sinuses are completely clearIMPRESSION:NO ACUTE FRACTURE OR SUBLUXATION Normal [facility] EKGon 04-22-2017 EKG Acquired on 04/22/20 17 1419Vent. Rate : 064 BPM Atrial Rate : 064 BPMP-R Int : 134 ms QRS Dur : 070 msQT Int : 400 ms P-R-T Axes : 022 037 031 degreesQTc Int : 412 msNormal sinus rhythmNormal ECGNo previous ECGs availableConfirmed by SHARON MCKEON MD ([id number]) on 04/25/2017 9:44:10 AMReferred By: Confirmed By:SHRAON MCKEON [id number] 2016 [facility] PT NAME: AL LEWIS#: [id number] [place] [address] ACCT: [id number]: 94EKG REPORT Normal [facility] GFR ESTIMATEon 04-22-2017 IF AMER > 60 Normal > 60 [facility] Comment on above: Order Comment: UNKNO WN Result Comment: eGFR (Estimated GFR) Units of measure:mL/min/1.73 meters sq.*CALCULATION REVISED 03/10/2015;IDMS-traceable MDRD equationeGFR is derived from the reexpressed MDRD Study equationusing the following parameters: serum creatinine, age,gender and race. An eGFR<60 mL/min/1.73m2 for >3 monthsis consistent with chronic kidney disease. Refer to KDOQIguidelines for clinical interpretation. Performed By: #### L 500.30898, L500.92074, L500.27109 ####Test performed at: [place] [address] IF non-AFR AMER > 60 Normal > 60 [facility] Comment on above: Order Comment: UNKNO WN Performed By: #### L 500.36279, L500.23564, L500.64624 ####Test performed at: [place] [address] LIMIT UR TOXon 04-22-2017 UR AMPH Negative Normal Negative [facility] Comment on above: Order Comment: UNKNO WN Result Comment: CUTO BN=2906 Performed By: #### L 200.22021 ####Test performed at: [place] [address] UR NANNETTE Negative Normal Negative [facility] Comment on above: Order Comment: UNKNO WN Result Comment: CUTO WE=473 Performed By: #### L 200.13251 ####Test performed at: [place] [address] UR YANDEL Negative Normal Negative [facility] Comment on above: Order Comment: UNKNO WN Result Comment: CUTO YR=489 Performed By: #### L 200.32260 ####Test performed at: [place] [address] UR RADHA/THC Negative Normal Negative [facility] Comment on above: Order Comment: UNKNO WN Result Comment: CUTO FF=50 Performed By: #### L 200.36026 ####Test performed at: [place] [address] UR PAULO Negative Normal Negative [facility] Comment on above: Order Comment: UNKNO WN Result Comment: CUTO SL=484 Performed By: #### L 200.41850 ####Test performed at: [place] [id number] UR ECSTASY Negative Normal Negative [facility] Comment on above: Order Comment: UNKNO WN Result Comment: CUTO YV=313 Performed By: #### L 200.23321 ####Test performed at: [place] [id number] UR METH Negative Normal Negative [facility] Comment on above: Order Comment: UNKNO WN Result Comment: CUTO MP=360 Performed By: #### L 200.72753 ####Test performed at: [place] [address] UR OPIAT Negative Normal Negative [facility] Comment on above: Order Comment: UNKNO WN Result Comment: CUTO QR=038 Performed By: #### L 200.47864 ####Test performed at: [place] [address] UR OXYCOCONE Negative Normal Negative [facility] Comment on above: Order Comment: UNKNO WN Result Comment: CUTO WI=301 Performed By: #### L 200.20714 ####Test performed at: [place] [address] UR PCP Negative Normal Negative [facility] Comment on above: Order Comment: UNKNO WN Result Comment: CUTO FF=25 Performed By: #### L 200.32342 ####Test performed at: [place] [address] PH TOX 5.0 Normal 5.0-8.0 [facility] Comment on above: Order Comment: UNKNO WN Performed By: #### L 200.22770 ####Test performed at: [place] [address] TOX COMMENT *PLEASE NOTE: Normal [facility] Comment on above: Order Comment: UNKNO WN Result Comment: UNCO NFIRMED Toxicology results. For MEDICAL purposes only. Performed By: #### L 200.86051 ####Test performed at: [place] [address] PORTABLE CHESTon 04-22-2017 PORTABLE CHEST STUDY:PORTABLE CHEST ; 04/22/2017 2:15 pmINDICATION:dizzy.COMPAR PRINCE:None. RDERING CLINICIAN:Vince OrozcoDINGMelia:CARDIOMEDI ASTINAL SILHOUETTE:Cardiomediasti nal silhouette is normal in size and configuration.LUNGS:Lungs are clear.ABDOMEN:No remarkable upper abdominal findings.BONES:No acute osseous changes.IMPRESSION:No evidence of acute cardiopulmonary process. Normal [facility] TROPONIN QUANTon 04-22-2017 Troponin I.cardiac mass conc ng/mL Normal 0.01-0.045 [facility] Comment on above: Order Comment: UNKNO WN Performed By: #### L 500.72677, L500.27864, L500.97237 ####Test performed at: [place] [address] UA COMPLETEon 04-22-2017 AMORPHOUS CRYST Trace Normal [facility] Comment on above: Order Comment: UNKNO WN Performed By: #### L 600.92179, L600.14661 ####Test performed at: [place] [address]#### L600.39017 ####Test performed at: [facility] [id number] [address] [place] [address] Bilirubin (total) Negative Normal NEGATIVE [facility] Comment on above: Order Comment: UNKNO WN Performed By: #### L 600.52666, L600.50646 ####Test performed at: [place] [address]#### L600.35393 ####Test performed at: [facility] [id number] [address] [place] [address] BLOOD >=1.0 mg/dL Invalid Interpretation Code NEGATIVE [facility] Comment on above: Order Comment: UNKNO WN Performed By: #### L 600.03581, L600.42188 ####Test performed at: [place] [address]#### L600.84159 ####Test performed at: [facility] [id number] [address] EPITH CELLS 6-10 Normal 0-10 [facility] Comment on above: Order Comment: UNKNO WN Performed By: #### L 600.02395, L600.18821 ####Test performed at: [place] [address]#### L600.56503 ####Test performed at: [facility] [id number] [address] [place], [place] [address] Erythrocytes (RBC) 21-50 Invalid Interpretation Code 0-3 [facility] Comment on above: Order Comment: UNKNO WN Performed By: #### L 600.19330, L600.36456 ####Test performed at: [place] [address]#### L600.51133 ####Test performed at: [facility] [id number] [address] [place] [address] Glucose mass conc Negative Normal NEGATIVE [facility] Comment on above: Order Comment: UNKNO WN Performed By: #### L 600.91421, L600.38138 ####Test performed at: [place] [address]#### L600.16004 ####Test performed at: [facility] [id number] [address] [place] [address] KETONE Negative Normal NEGATIVE [facility] Comment on above: Order Comment: UNKNO WN Performed By: #### L 600.69759, L600.06717 ####Test performed at: [place] [address]#### L600.99795 ####Test performed at: [facility] [id number] [address] [place], [place] [address] LEUK ESTERASE 25 [place]/uL Invalid Interpretation Code NEGATIVE [facility] Comment on above: Order Comment: UNKNO WN Performed By: #### L 600.43942, L600.25842 ####Test performed at: [place] [address]#### L600.22162 ####Test performed at: [facility] [id number] [address] [place], [place] [address] Protein Negative Normal NEGATIVE [facility] Comment on above: Order Comment: UNKNO WN Performed By: #### L 600.04149, L600.86421 ####Test performed at: [place] [address]#### L600.19213 ####Test performed at: [facility] [id number] [address] [place] [id number] SPEC GRAV 1.011 Normal 1.005-1.030 [facility] Comment on above: Order Comment: UNKNO WN Performed By: #### L 600.21762, L600.16153 ####Test performed at: [place] [address]#### L600.81747 ####Test performed at: [facility] [id number] [address] [place] [address] UA ASC ACID Negative Normal [facility] Comment on above: Order Comment: UNKNO WN Performed By: #### L 600.21686, L600.38033 ####Test performed at: [place] [address]#### L600.75991 ####Test performed at: [facility] [id number] [address] [place] [address] UA PH 5.0 Normal 5.0-8.0 [facility] Comment on above: Order Comment: UNKNO WN Performed By: #### L 600.95042, L600.59457 ####Test performed at: [place] [address]#### L600.93026 ####Test performed at: [facility] [id number] [address] Urine, appearance CLEAR Normal CLEAR [facility] Comment on above: Order Comment: UNKNO WN Performed By: #### L 600.56469, L600.78267 ####Test performed at: [place] [address]#### L600.72682 ####Test performed at: [facility] [id number] [address] [place], [place] [address] Urine, bacteria in sediment Small Invalid Interpretation Code NONE OBSERV [facility] Comment on above: Order Comment: UNKNO WN Performed By: #### L 600.30491, L600.23706 ####Test performed at: [place] [address]#### L600.83854 ####Test performed at: [facility] [id number] [address] [place], [place] [address] Urine, color YELLOW Normal YELLOW [facility] Comment on above: Order Comment: UNKNO WN Performed By: #### L 600.18873, L600.82581 ####Test performed at: [place] [address]#### L600.10381 ####Test performed at: [facility] [id number] [address] Urine, mucus presence in sediment Small Normal [facility] Comment on above: Order Comment: UNKNO WN Performed By: #### L 600.32413, L600.79857 ####Test performed at: [place] [address]#### L600.82670 ####Test performed at: [facility] [id number] [address] Urine, nitrite presence Negative Normal NEGATIVE [facility] Comment on above: Order Comment: UNKNO WN Performed By: #### L 600.12815, L600.56888 ####Test performed at: [place] [address]#### L600.17048 ####Test performed at: [facility] [id number] [address] [place], [place] [address] UROBIL NORMAL Normal NORMAL [facility] Comment on above: Order Comment: UNKNO WN Performed By: #### L 600.25628, L600.31750 ####Test performed at: [place] [address]#### L600.13044 ####Test performed at: [facility] [id number] [address] [place] [address] WBC (Leukocytes) 11-15 Invalid Interpretation Code 0-5 [facility] Comment on above: Order Comment: UNKNO WN Performed By: #### L 600.29177, L600.14811 ####Test performed at: [place] [address]#### L600.85150 ####Test performed at: [facility] [id number] [address] [place] [address] UR HCG QUALon 04-22-2017 UR HCG QUAL Negative Normal [facility] Comment on above: Order Comment: UNKNO WN Performed By: #### L 600.76099, L600.69333 ####Test performed at: [place] [address]#### L600.12324 ####Test performed at: [facility] [id number] [address] [place] [address] GC + CHLAMYDIA BY AMPLIFIED DETECTIONon 03-09-2017 CHLAMYDIA TRACH.,AMPLIFIED Positive Abnormal NEGATIVE [facility] Comment on above: Result Comment: Perf ormance characteristics for Chlamydia trachomatis testing on femaleurine samples has been validated by [facility].Testing on this sample type is not FDA-approved, but such approval is notnecessary. This laboratory is certified by CLIA to perform high complexitytesting. Performed By: #### B LCV1 ####[facility] [place] [address] N.GONORRHEA,AMPLIFIED Negative Normal NEGATIVE [facility] Comment on above: Result Comment: Perf ormance characteristics for Neisseria gonorrhoeae testing on femaleurine samples has been validated by [facility].Testing on this sample type is not FDA-approved, but such approval is notnecessary. This laboratory is certified by CLIA to perform high complexitytesting. Performed By: #### B LCV1 ####[facility] [place] [address] RUBELLA IGG ABon 03-09-2017 RUBELLA IGG AB 25.4 IU/ML Normal [facility] Comment on above: Result Comment: REF VALUESNON-IMMUNE: < 5EQUIVOCAL: 5-9IMMUNE: >=10 Performed By: #### B LCV1 ####[facility] [place] [address] TYPE + SCREENon 03-08-2017 ABO TYPE Canceled Normal [facility] Comment on above: Order Comment: TEST TYPE + SCREEN WAS CANCELLED, 03/07/2017 10:18 ?Cancel Reason: PatientDischarged. Performed By: #### B LCV1 ####[facility] [place] [address] ANTIBODY SCREEN Canceled Normal [facility] Comment on above: Order Comment: TEST TYPE + SCREEN WAS CANCELLED, 03/07/2017 10:18 ?Cancel Reason: PatientDischarged. Performed By: #### B LCV1 ####[facility] [place] [address] RH TYPE Canceled Normal [facility] Comment on above: Order Comment: TEST TYPE + SCREEN WAS CANCELLED, 03/07/2017 10:18 ?Cancel Reason: PatientDischarged. Performed By: #### B LCV1 ####[facility] [place] [address] CBCon 03-07-2017 Erythrocyte distribution width Auto Ratio (RBC) 15.2 % High 11.5 - 14.5 [facility] Comment on above: Performed By: #### C BC ####[facility] [place] [address] Erythrocytes (RBC) 4.71 x10E12/L Normal 4.00 - 5.20 [facility] Comment on above: Performed By: #### C BC ####[facility] [place] [address] Hematocrit (HCT) 37.8 % Normal 36.0 - 46.0 [facility] Comment on above: Performed By: #### C BC ####[facility] [place] [address] Hemoglobin mass conc (Bld) 11.5 g/dL Low 12.0 - 16.0 [facility] Comment on above: Performed By: #### C BC ####[facility] [place] [address] MCHC mass conc (RBC) 30.4 g/dL Low 32.0 - 36.0 [facility] Comment on above: Performed By: #### C BC ####[facility] [place] [address] MCV 80 fL Normal 80 - 100 [facility] Comment on above: Performed By: #### C BC ####[facility] [place] [address] Nucleated erythrocytes 0.0 /100 WBC Normal 0.0-0.0 [facility] Comment on above: Performed By: #### C BC ####[facility] [place] [address] Platelets 206 10*3/uL Normal 150 - 450 [facility] Comment on above: Performed By: #### C BC ####[facility] [place] [address] WBC (Leukocytes) 9.0 10*3/uL Normal 4.4 - 11.3 [facility] Comment on above: Performed By: #### C BC ####[facility] [place] [address] COMPREHENSIVE PANELon 2016 Alanine aminotransferase (ALT) 11 U/L Normal 7 - 45 [facility] Comment on above: Result Comment: Laureen ents treated with Sulfasalazine may generate falsely decreased results for ALT. Performed By: #### C MP ####[facility] [place] [address] Albumin 3.2 g/dL Low 3.4 - 5.0 [facility] Comment on above: Performed By: #### C MP ####[facility] [place] [address] Alkaline phosphatase (ALP) 224 U/L High 33 - 110 [facility] Comment on above: Performed By: #### C MP ####[facility] [place] [address] Anion gap 16 mmol/L Normal 10 - 20 [facility] Comment on above: Performed By: #### C MP ####[facility] [place] [address] Aspartate aminotransferase (AST) 25 U/L Normal 9 - 39 [facility] Comment on above: Result Comment: MILD HEMOLYSIS DETECTED. The result may be falsely elevated due tohemolysis or other interferents. Clinical correlation is recommended.Repeat testing may be considered. Performed By: #### C MP ####[facility] [place] [address] Bicarbonate (HCO3) 18 mmol/L Low 21 - 32 [facility] Comment on above: Performed By: #### C MP ####[facility] [place] [address] Bilirubin (total) 0.3 mg/dL Normal 0.0 - 1.2 [facility] Comment on above: Performed By: #### C MP ####[facility] [place] [address] Calcium 9.1 mg/dL Normal 8.6 - 10.6 [facility] Comment on above: Performed By: #### C MP ####[facility] [place] [address] Chloride 109 mmol/L High 98 - 107 [facility] Comment on above: Performed By: #### C MP ####[facility] [place] [address] Creatinine 0.65 mg/dL Normal 0.50 - 1.05 [facility] Comment on above: Performed By: #### C MP ####[facility] [place] [address] eGFR (non-black) mL/min/{1.73_m2} Normal >60 [facility] Comment on above: Result Comment: CALC ULATIONS OF ESTIMATED GFR ARE PERFORMED USING THE MDRD STUDY EQUATION FOR THE IDMS-TRACEABLE CREATININE METHODS. CLIN CHEM 2007;53:766-72 Performed By: #### C MP ####[facility] [place] [address] Glucose mass conc 52 mg/dL Low 74 - 99 [facility] Comment on above: Performed By: #### C MP ####[facility] [place] [address] Potassium molar conc 4.2 mmol/L Normal 3.5 - 5.3 [facility] Comment on above: Result Comment: MILD HEMOLYSIS DETECTED. The result may be falsely elevated due tohemolysis or other interferents. Clinical correlation is recommended.Repeat testing may be considered. Performed By: #### C MP ####[facility] [place] [address] Protein 6.5 g/dL Normal 6.4 - 8.2 [facility] Comment on above: Performed By: #### C MP ####[facility] [place] [address] Sodium 139 mmol/L Normal 136 - 145 [facility] Comment on above: Performed By: #### C MP ####[facility] [place] [address] Urea nitrogen 6 mg/dL Normal 6 - 23 [facility] Comment on above: Performed By: #### C MP ####[facility] [place] [address] CORD PLACENTA ARTERIAL BLOOD GASon 03-07-2017 BASE EXCESS-BLOOD -2.3 mmol/L Normal -10.8 - -0.5 [facility] Comment on above: Performed By: #### B LCA1 ####[facility] [place] [address] Body temperature 37.0 degrees C Normal [facility] Comment on above: Result Comment: NOTE : PATIENT RESULTS ARE NOT CORRECTED FOR TEMPERATURE. Performed By: #### B LCA1 ####[facility] [place] [address] CO2 47 mmHg Normal 31 - 75 [facility] Comment on above: Performed By: #### B LCA1 ####[facility] [place] [address] Erythrocytes (RBC) 24.2 mmol/L Normal 15.0 - 29.0 [facility] Comment on above: Performed By: #### B LCA1 ####[facility] [place] [address] Oxygen in arterial blood 14 mm[Hg] Normal 5 - 31 [facility] Comment on above: Performed By: #### B LCA1 ####[facility] [place] [address] pH of blood 7.32 [pH] Normal 7.08 - 7.39 [facility] Comment on above: Performed By: #### B LCA1 ####[facility] [place] [address] SO2 27 % Normal 3 - 69 [facility] Comment on above: Performed By: #### B LCA1 ####[facility] [place] [address] CORD PLACENTA VENOUS BLOOD G ASon 03-07-2017 BASE EXCESS-BLOOD -3.3 mmol/L Normal -8.1 - -0.5 [facility] Comment on above: Performed By: #### B LCV1 ####[facility] [place] [address] Body temperature 37.0 degrees C Normal [facility] Comment on above: Result Comment: NOTE : PATIENT RESULTS ARE NOT CORRECTED FOR TEMPERATURE. Performed By: #### B LCV1 ####[facility] [place] [address] CO2 37 mmHg Normal 22 - 53 [facility] Comment on above: Performed By: #### B LCV1 ####[facility] [place] [address] Erythrocytes (RBC) 21.4 mmol/L Normal 16.0 - 26.0 [facility] Comment on above: Performed By: #### B LCV1 ####[facility] [place] [address] Oxygen in arterial blood 21 mm[Hg] Normal 13 - 37 [facility] Comment on above: Performed By: #### B LCV1 ####[facility] [place] [address] pH of blood 7.37 [pH] Normal 7.19 - 7.47 [facility] Comment on above: Performed By: #### B LCV1 ####[facility] [id number] SO2 56 % Normal 16 - 84 [facility] Comment on above: Performed By: #### B LCV1 ####[facility] [id number] DRUG SCREEN,URINEon 03-07-20 COCAINE METABOLITE Negative Normal NEGATIVE [facility] Comment on above: Result Comment: CUTO FF LEVEL: 150 NG/ML Animal Surgeon drug: Benzoylecgonine(cocaine metabolite) Performed By: #### D RUG3 ####[facility] [place] [address] DRUG SCREEN COMMENT SEE BELOW Normal [facility] Comment on above: Result Comment: POSI TIVE CUTOFFS ARE BASED ON REACTIVITY WITH A FAMILY CONSUMER SCIENTIST MEMBER OF DRUG CLASS. MEMBERS OF THE [...] TESTING OR PATHOLOGIST CONSULTATION, CALL LABORATORY AT [phone]. Performed By: #### D RUG3 ####[facility] [id number] OXYCODONE Negative Normal NEGATIVE [facility] Comment on above: Result Comment: CUTO FF LEVEL:100 NG/ML Animal Surgeon drug: Oxycodone This test will accurately detect both oxycodone and oxymorphone. Performed By: #### D RUG3 ####[facility] [place] [address] PCP Negative Normal NEGATIVE [facility] Comment on above: Result Comment: CUTO FF LEVEL: 25 NG/ML Animal Surgeon drug: Phencyclidine(PCP) Cross-reactivity has been reported with dextromethorphan. Performed By: #### D RUG3 ####[facility] [id number] URINE BARBITURATES Negative Normal NEGATIVE [facility] Comment on above: Result Comment: CUTO FF LEVEL:200 NG/ML Animal Surgeon drug: Secobarbital Performed By: #### D RUG3 ####[facility] [place] [address] Urine, amphetamines presence Negative Normal NEGATIVE [facility] Comment on above: Result Comment: CUTO FF LEVEL: 500 NG/ML Animal Surgeon drug: d-Methamphetamine Cross-reactivity has been reported with high concentrations of the following drugs: buproprion, chloroquine, chlorpromazine, ephedrine, mephentermine, fenfluramine, phentermine, phenylpropanolamine, pseudoephedrine, and propranolol. Performed By: #### D RUG3 ####[facility] [place] [address] Urine, benzodiazepines presence Negative Normal NEGATIVE [facility] Comment on above: Result Comment: CUTO FF LEVEL:200 NG/ML Animal Surgeon drug: Lormetazepam Performed By: #### D RUG3 ####[facility] [place] [address] Urine, cannabinoids presence Negative Normal NEGATIVE [facility] Comment on above: Result Comment: CUTO FF LEVEL:50 NG/ML Animal Surgeon dru11-idg-ktbxi6-THC-9carboxylic acid Performed By: #### D RUG3 ####[facility] [id number] Urine, methadone presence Negative Normal NEGATIVE [facility] Comment on above: Result Comment: CUTO FF LEVEL: 150 NG/ML Animal Surgeon drug: Methadone The metabolite O-byhig-hzaexobzeniahz (LAAM) is not detected by this method in concentrations that would be found in the urine of patients on LAAM therapy. Performed By: #### D RUG3 ####[facility] [id number] Urine, opiates presence Negative Normal NEGATIVE [facility] Comment on above: Result Comment: CUTO FF LEVEL: 300 NG/ML Animal Surgeon Drug: Morphine This assay shows poor reactivity with synthetic opioids such as oxycodone and fentanyl. Cross-reactivity has been reported at high doses of meperidine. Performed By: #### D RUG3 ####[facility] [place] [address] EMR ADDONon 03-07-2017 ADDON CONFIRMATION REQUEST REC'D Normal [facility] Comment on above: Performed By: #### B LCV1 ####[facility] [place] [address] ADDON CONFIRMATION REQUEST REC'D Normal [facility] Comment on above: Performed By: #### E MRAD ####NO LOCATION NEEDED GC + CHLAMYDIA BY AMPLIFIED DETECTIONon 03-07-2017 Lab Specimen Source Urine Normal [facility] Comment on above: Performed By: #### B LCV1 ####[facility] [id number] GROUP B STREP SCREENon 03-07 GROUP B STREP SCREEN PATIENT: Brandon LEWIS LOCATION: [address]#: [id number] : 89 AGE: SEX: F ORDERED BY: STEFANIE FISHER: VAG-RECTAL COLLECTED: 03/07/17 10:19ANTIBIOTICS AT ALEXANDRA.: RECEIVED : 03/07/17 13:28SITE: Cervix R E S U L T S GROUP B STREP SCREEN FINAL 03/09/17 08:36 NEGATIVE FOR GROUP B BETA STREP. Normal [facility] Comment on above: Performed By: #### B LCV1 ####[facility] [place] [address] HEPATITIS B SURFACE AGon HEP.B SURFACE AG NONREACTIVE Normal NONREACTIVE [facility] Comment on above: Result Comment: Laureen ents receiving more than 5 mg/day of biotin may have interference in test results. A sample should be taken no sooner than eight hours after previous dose. Contact [phone] for additional information. Performed By: #### B LCV1 ####[facility] [place] [address] HEPATITIS C ABon 03-07-2017 HEPATITIS C AB NON-REACTIVE Normal NONREACTIVE [facility] Comment on above: Result Comment: Laureen ents receiving more than 5 mg/day of biotin may have interference in test results. A sample should be taken no sooner than eight hours after previous dose. Contact [phone] for additional information. Performed By: #### B LCV1 ####[facility] [place] [address] LDHon 03-07-2017 LDH 378 U/L High 84 - 246 [facility] Comment on above: Result Comment: MILD HEMOLYSIS DETECTED. The result may be falsely elevated due tohemolysis or other interferents. Clinical correlation is recommended.Repeat testing may be considered. Performed By: #### L DH ####[facility] [place] [address] SYPHILIS IGGon 03-07-2017 SYPHILIS IGG NON REACTIVE Normal NONREACTIVE [facility] Comment on above: Result Comment: Laureen ents receiving more than 5 mg/day of biotin may have interference in test results. A sample should be taken no sooner than eight hours after previous dose. Contact [phone] for additional information. Performed By: #### B LCV1 ####[facility] [place] [address] Lab Specimen Source Normal [facility] Comment on above: Performed By: #### B LCV1 ####[facility] [place] [address] TOTAL PROTEIN, URINE SPOTon 03-07-2017 CREATININE,URINE 386.0 mg/dL Normal [facility] Comment on above: Performed By: #### T PS2 ####[facility] [id number] T. PROTEIN/CREAT RATIO 0.23 mg/mg Creat Normal [facility] Comment on above: Result Comment: Note : The units of measurement for Urine Total Protein to Creatinine Ratio have changed from mg/g creat to mg/mg creat effective 11/12/16. New results in mg/mg creat are 1000 fold lower than previous results in mg/g creatinine. (Ex: 200 mg/g creat = 0.20 mg/mg creat) Performed By: #### T PS2 ####[facility] [place] [address] TOTAL PROT,URINE SPOT 90 mg/dL High 0 - 12 [facility] Comment on above: Result Comment: Note : The units of measurement for urine total protein concentration have changed from mg/L to mg/dL effective 11/12/16. New results in mg/dL are now 10 fold lower than the previous results in mg/L. Performed By: #### T PS2 ####[facility] [id number] TYPE + SCREENon 03-07-2017 ABO TYPE A Normal [facility] Comment on above: Performed By: #### T +S ####[place] [id number] [id number] RH TYPE Positive Normal [facility] Comment on above: Performed By: #### T +S ####[place] [id number] [id number] ANTIBODY SCREEN Negative Normal [facility] Comment on above: Performed By: #### T +S ####[place] [id number] [id number] [facility] Surgical Pathology Depar tmenton 03-07-2017 [facility] Surgical Pathology Department Name AGUEDA LEWIS Pathologist: [...] and firm. No gross abnormalities are noted. Animal Surgeon sections aresubmitted in 5 cassettes.NUBSpecimen Label SiteA 1 umbilical cord sections 2 membrane rolls 3 placental parenchyma, umbilical cord insertion site 4 normal placental parenchyma 5 placental parenchyma, business services sales representative section of plaquen03/08/2017 Normal [facility] Comment on above: Performed By: #### B LCV1 ####[facility] [place] [address] URIC ACIDon 03-07-2017 Urate 5.2 mg/dL Normal 2.3 - 6.7 [facility] Comment on above: Result Comment: Linda puncture immediately after or during the administration of Metamizole may lead to falsely low results. Testing should be performed immediately prior to Metamizole dosing. Performed By: #### U PASTORA ####[facility] [place] [address] Vital Signs Date Time Vital Sign Value Performing Clinician Facility 12-16-2024 16:54-0400 Body temperature 98.2 [degF] No Primary Care Physician [facility] 12-16-2024 16:54-0400 Diastolic blood pressure 69 mm[Hg] No Primary Care Physician [facility] 12-16-2024 16:54-0400 Heart rate 58 /min No Primary Care Physician [facility] 12-16-2024 16:54-0400 Respiratory rate 16 /min No Primary Care Physician [facility] 12-16-2024 16:54-0400 SaO2% (BldA) [Mass fraction] 99 % No Primary Care Physician [facility] 12-16-2024 16:54-0400 Systolic blood pressure 127 mm[Hg] No Primary Care Physician [facility] 12-16-2024 11:57-0400 Body height 182.88 cm No Primary Care Physician [facility] 12-16-2024 11:57-0400 Body mass index (BMI) [Ratio] 36.3 kg/m2 No Primary Care Physician [facility] 12-16-2024 11:57-0400 Body weight 121.33 kg No Primary Care Physician [facility] 12-16-2024 11:41-0400 Body mass index (BMI) [Ratio] 37.14 kg/m2 Rick Mckinnon APRN.CNP Work Phone: [facility] 12-16-2024 11:41-0400 Body temperature 98.29 [degF] Rick Mckinnon APRN.ADHESIVE BANDAGE MACHINE OPERATOR Work Phone: [facility] 12-16-2024 11:41-0400 Body weight 120.8 kg Rick Mckinnon APRN.CNP Work Phone: [facility] 12-16-2024 11:41-0400 Diastolic blood pressure 88 mm[Hg] Rick Mckinnon APRN.ADHESIVE BANDAGE MACHINE OPERATOR Work Phone: [facility] 12-16-2024 11:41-0400 Heart rate 85 /min Rick Mckinnon APRN.CNP Work Phone: [facility] 12-16-2024 11:41-0400 Respiratory rate 18 /min Rick Valdezsenthil CALL CENTER COORDINATOR.ADHESIVE BANDAGE MACHINE OPERATOR Work Phone: [facility] 12-16-2024 11:41-0400 SaO2% (BldA) [Mass fraction] 99 % Rick Espanaalex CALL CENTER COORDINATOR.ADHESIVE BANDAGE MACHINE OPERATOR Work Phone: [facility] 12-16-2024 11:41-0400 Systolic blood pressure 112 mm[Hg] Rick Valdezsenthil CALL CENTER COORDINATOR.ADHESIVE BANDAGE MACHINE OPERATOR Work Phone: [facility] 11-29-2024 02:54-0400 Body temperature 97.8 [degF] No Primary Care Physician [facility] 11-29-2024 02:54-0400 Diastolic blood pressure 72 mm[Hg] No Primary Care Physician [facility] 11-29-2024 02:54-0400 Heart rate 68 /min No Primary Care Physician [facility] 11-29-2024 02:54-0400 Respiratory rate 16 /min No Primary Care Physician [facility] 11-29-2024 02:54-0400 SaO2% (BldA) [Mass fraction] 99 % No Primary Care Physician [facility] 11-29-2024 02:54-0400 Systolic blood pressure 116 mm[Hg] No Primary Care Physician [facility] 11-29-2024 00:06-0400 Body height 182.88 cm No Primary Care Physician [facility] 11-29-2024 00:06-0400 Body mass index (BMI) [Ratio] 36.3 kg/m2 No Primary Care Physician [facility] 11-29-2024 00:06-0400 Body weight 121.38 kg No Primary Care Physician [facility] 08-01-2024 11:13-0400 Body mass index (BMI) [Ratio] 37.82 kg/m2 Francisco Combs MD Work Phone: [facility] 08-01-2024 11:13-0400 Body temperature 98.8 [degF] Francisco Combs MD Work Phone: [facility] 08-01-2024 11:13-0400 Body weight 123 kg Francisco Combs MD Work Phone: [facility] 08-01-2024 11:13-0400 Diastolic blood pressure 83 mm[Hg] Francisco Combs MD Work Phone: [facility] 08-01-2024 11:13-0400 Heart rate 80 /min Francisco Combs MD Work Phone: [facility] 08-01-2024 11:13-0400 Respiratory rate 20 /min Francisco Combs MD Work Phone: [facility] 08-01-2024 11:13-0400 SaO2% (BldA) [Mass fraction] 99 % Francisco Combs MD Work Phone: [facility] 08-01-2024 11:13-0400 Systolic blood pressure 127 mm[Hg] Francisco Combs MD Work Phone: [facility] 07-08-2024 14:47-0500 Body height 180.3 cm Paramjit Robertson MD Work Phone: [facility] 07-08-2024 14:47-0500 Body mass index (BMI) [Ratio] 37.38 kg/m2 Paramjit Robertson MD Work Phone: [facility] 07-08-2024 14:47-0500 Body weight 121.56 kg Paramjit Robertson MD Work Phone: [facility] 07-08-2024 14:47-0500 Diastolic blood pressure 71 mm[Hg] Paramijt Robertson MD Work Phone: [facility] 07-08-2024 14:47-0500 Heart rate 77 /min Paramjit Robertson MD Work Phone: [facility] 07-08-2024 14:47-0500 Respiratory rate 20 /min Paramjit Robertson MD Work Phone: [facility] 07-08-2024 14:47-0500 Systolic blood pressure 116 mm[Hg] Paramjit Robertson MD Work Phone: [facility] 06-03-2024 14:34-0500 Body height 178.8 cm Елена Judy CALL CENTER COORDINATOR.ADHESIVE BANDAGE MACHINE OPERATOR Work Phone: [facility] 06-03-2024 14:34-0500 Body mass index (BMI) [Ratio] 38.05 kg/m2 Елена Judy CALL CENTER COORDINATOR.ADHESIVE BANDAGE MACHINE OPERATOR Work Phone: [facility] 06-03-2024 14:34-0500 Body weight 121.66 kg Елена Judy CALL CENTER COORDINATOR.ADHESIVE BANDAGE MACHINE OPERATOR Work Phone: [facility] 06-03-2024 14:34-0500 Diastolic blood pressure 68 mm[Hg] Елена Suffield CALL CENTER COORDINATOR.ADHESIVE BANDAGE MACHINE OPERATOR Work Phone: [facility] 06-03-2024 14:34-0500 Systolic blood pressure 122 mm[Hg] Елена Judy CALL CENTER COORDINATOR.ADHESIVE BANDAGE MACHINE OPERATOR Work Phone: [facility] 03-29-2024 21:40-0500 Diastolic blood pressure 74 mm[Hg] Vince Hope MD Work Phone: [facility] Client24 03-29-2024 21:40-0500 Heart rate 68 /min Vince Hope MD Work Phone: [facility]24 03-29-2024 21:40-0500 Respiratory rate 18 /min Vince Hope MD Work Phone: [facility]24 03-29-2024 21:40-0500 SaO2% (BldA) [Mass fraction] 98 % Vince Hope MD Work Phone: [facility]24 03-29-2024 21:40-0500 Systolic blood pressure 105 mm[Hg] Vince Hope MD Work Phone: [facility]24 03-29-2024 18:45-0500 Body temperature 97 [degF] Vince Hope MD Work Phone: [facility] 03-29-2024 18:44-0500 Body height 180.3 cm Vince Hope MD Work Phone: [facility] Client24 03-29-2024 18:44-0500 Body mass index (BMI) [Ratio] 40.17 kg/m2 Vince Hope MD Work Phone: [facility] 03-29-2024 18:44-0500 Body weight 130.64 kg Vince Hope MD Work Phone: [facility] 12-29-2023 10:11-0400 Body height 180.3 cm Mary Jasso MD Work Phone: [facility] 12-29-2023 10:11-0400 Body mass index (BMI) [Ratio] 37.35 kg/m2 Mary Jasso MD Work Phone: [facility] 12-29-2023 10:11-0400 Body temperature 96.91 [degF] Mary Jasso MD Work Phone: [facility] 12-29-2023 10:11-0400 Body weight 121.47 kg Mary Jasso MD Work Phone: [facility] 12-29-2023 10:11-0400 Diastolic blood pressure 66 mm[Hg] Mary Jasso MD Work Phone: [facility] 12-29-2023 10:11-0400 Heart rate 117 /min Mayr Jasso MD Work Phone: [facility] 12-29-2023 10:11-0400 SaO2% (BldA) [Mass fraction] 98 % Mary Jasso MD Work Phone: [facility] 12-29-2023 10:11-0400 Systolic blood pressure 108 mm[Hg] Mary Jasso MD Work Phone: [facility] 08-23-2023 21:38-0400 Body height 180.[address] JOAQUÍN CARMICHAEL DO [facility] 08-23-2023 21:38-0400 Body temperature 98.96 [degF] DR JOAQUÍN CARMICHAEL DO [facility] 08-23-2023 21:38-0400 Body weight 127.[address] JOAQUÍN CARMICHAEL DO [facility] 08-23-2023 21:38-0400 Diastolic Blood Pressure Non-Invasive 85 mm[Hg] DR JOAQUÍN CARMICHAEL DO [facility] 08-23-2023 21:38-0400 Heart rate 88 /min DR JOAQUÍN CARMICHAEL DO [facility] 08-23-2023 21:38-0400 Respiratory rate 18 /min DR JOAQUÍN CARMICHAEL DO [facility] 08-23-2023 21:38-0400 Systolic Blood Pressure Non-Invasive 124 mm[Hg] DR JOAQUÍN CARMICHAEL DO [facility] 08-14-2023 08:26-0400 Body height 177.8 cm Orestes Heath MD Work Phone: [facility] 08-14-2023 08:26-0400 Body weight 126.55 kg Orestes Heath MD Work Phone: [facility] 08-14-2023 08:26-0400 Diastolic blood pressure 77 mm[Hg] Orestes Heath MD Work Phone: [facility] 08-14-2023 08:26-0400 Heart rate 103 /min Orestes Heath MD Work Phone: [facility] 08-14-2023 08:26-0400 Respiratory rate 18 /min Orestes Heath MD Work Phone: [facility] 08-14-2023 08:26-0400 SaO2% (BldA) [Mass fraction] 98 % Orestes Heath MD Work Phone: [facility] 08-14-2023 08:26-0400 Systolic blood pressure 111 mm[Hg] Orestes Heath MD Work Phone: [facility] 03-27-2023 15:51-0500 Body height 177.4 cm Quintin Montiel DO Work Phone: [facility] 03-27-2023 15:51-0500 Body mass index (BMI) [Ratio] 41.52 kg/m2 Quintin Khalid DO Work Phone: [employer] 03-27-2023 15:51-0500 Body temperature 97.9 [degF] Greenevers Khalid DO Work Phone: [facility] 03-27-2023 15:51-0500 Body weight 130.68 kg Greenevers Khalid DO Work Phone: [facility] 03-27-2023 15:51-0500 Diastolic blood pressure 82 mm[Hg] Greenevers Khalid DO Work Phone: [facility] 03-27-2023 15:51-0500 Heart rate 87 /min Greenevers Khalid DO Work Phone: [facility] 03-27-2023 15:51-0500 Respiratory rate 20 /min Quintin Khalid DO Work Phone: [employer] 03-27-2023 15:51-0500 Systolic blood pressure 118 mm[Hg] Quintin Khalid DO Work Phone: [employer] 11-01-2020 23:25-0400 Body temperature 98.01 [degF] [employer] Work Phone: 11-01-2020 23:25-0400 Diastolic blood pressure 71 mm[Hg] [employer] Work Phone: 11-01-2020 23:25-0400 Heart rate 69 /min [employer] Work Phone: 11-01-2020 23:25-0400 Respiratory rate 16 /min [employer] Work Phone: 11-01-2020 23:25-0400 SaO2% (BldA) [Mass fraction] 98 % [employer] Work Phone: 11-01-2020 23:25-0400 Systolic blood pressure 110 mm[Hg] [employer] Work Phone: 11-01-2020 19:37-0400 Body mass index (BMI) [Ratio] 29.57 kg/m2 [facility] Work Phone: 11-01-2020 19:37-0400 Body weight 96.16 kg [facility] Work Phone: 11-01-2020 19:36-0400 Body height 180.3 cm [facility] Work Phone: Encounters Encounter Date Encounter Type Care Provider Facility Start: 12-16-2024 End: 12-16-2024 Emergency department patient visit No Primary Care Physician -Emergency Department Work Phone: Start: 12-16-2024 End: 12-16-2024 [facility]ENTER COORDINATOR.ADHESIVE BANDAGE MACHINE OPERATOR Work Phone: [facility] Comment on above: Right upper quadrant abdominal pain (Primary Dx) Start: 12-16-2024 End: 12-16-2024 ambulatory RICK MCKINNON Facility:[facility] Start: 12-06-2024 ambulatory No Primary Car e Physician Facility:[facility] Start: 11-29-2024 End: 11-29-2024 Emergency department patient visit No Primary Care Physician -Emergency Department Work Phone: Start: 10-16-2024 End: 10-16-2024 Telephone encounter Paramjit Robertson MD Work Phone: [facility] Comment on above: Surgery Cancelled (R e: Lap Malissa 10/17/2024) Start: 10-10-2024 Preprocedural examination done Paramjit Robertson MD Work Phone: [facility] Work Phone: Start: 09-26-2024 End: 09-30-2024 Orders Only Paramjit Robertson MD Work Phone: [facility] Comment on above: Calculus of gallblad samuel without cholecystitis without obstruction (Primary Dx) Cardiac Clearance Start: 08-21-2024 End: 08-21-2024 Telephone encounter Orestes Heath MD Work Phone: [facility] Cardiology [place] Start: 08-01-2024 End: 08-01-2024 Subsequent hospital visit by physician Xr [facility] Work Phone: Radiology Comment on above: Acute pain of left s adenike [M25.512] Start: 08-01-2024 End: 08-01-2024 ambulatory FRANCISCO COMBS Facility:[facility] Start: 08-01-2024 End: 08-01-2024 Office outpatient visit 15 minutes Francisco Combs MD Work Phone: [facility] Comment on above: Acute pain of left s adenike (Primary Dx) Start: 07-08-2024 End: 07-08-2024 Patient encounter procedure Paramjit Robertson MD Work Phone: [facility] Comment on above: Calculus of gallblad samuel without cholecystitis without obstruction (Primary Dx); 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 Orthopedics [facility] Comment on above: Pain in both knees, unspecified chronicity (Primary Dx) Start: 06-05-2024 End: 06-06-2024 ambulatory Елена Kim APRN.ADHESIVE BANDAGE MACHINE OPERATOR Work Phone: OB/Gynecology Comment on above: Test Result Question Start: 06-03-2024 End: 06-03-2024 Patient encounter procedure Елена Kim APRN.ADHESIVE BANDAGE MACHINE OPERATOR Work Phone: OB/Gynecology Comment on above: Encounter for gyneco logical examination (general) (routine) without abnormal findings (Primary Dx); Screening for cervical cancer; Encounter for screening for human papillomavirus (HPV); Irregular menstrual cycle Start: 06-03-2024 End: 06-03-2024 Patient encounter status Елена Kim ANGEL Work Phone: [facility] Start: 06-03-2024 End: 06-03-2024 ambulatory ЕЛЕНА KIM Facility:[facility] Start: 04-25-2024 End: 04-25-2024 Telephone encounter Orestes Heath MD Work Phone: [facility] Cardiology Comment on above: Results (Echo) Start: 04-23-2024 ambulatory ORESTES HEATH Facilit y:[facility] Start: 04-23-2024 End: 04-23-2024 Subsequent hospital visit by physician Echo [facility] CARDIAC TESTING Comment on above: Family history of hy pertrophic cardiomyopathy [Z82.49] Start: 04-03-2024 End: 04-03-2024 Emergency department patient visit BUDDY HOPKINS Facility:[facility] Start: 04-02-2024 End: 04-02-2024 ambulatory [facility] Start: 03-29-2024 End: 03-29-2024 Emergency department patient visit Vince Hope MD Work Phone: [facility] ED Comment on above: Gallstones (Primary Dx); Biliary colic; Trichomonas infection Start: 03-29-2024 End: 04-01-2024 Telephone encounter Rubi Kang RN [facility] Clinical Communication Comment on above: Other (ED follow up appointment) Start: 2024 End: 2024 ambulatory Nurse Card Admin [facility] Work Phone: Cardiology Comment on above: Stress Test Instruct ions for 02/26/24 Start: 2024 End: 2024 E-mail encounter from caregiver Nurse Card Admin [facility] Work Phone: Cardiology Start: 02-14-2024 End: 02-14-2024 Emergency department patient visit QUINTIN MONTIEL Facility:[facility] Start: 01-16-2024 End: 03-27-2024 Telephone encounter Mary Jasso MD Work Phone: General Surgery Comment on above: Patient Update Start: 01-08-2024 ambulatory Vince Flores Facility: [facility] Start: 12-29-2023 End: 12-29-2023 ambulatory MARY JASSO Facility:[facility] Start: 12-29-2023 End: 12-29-2023 Patient encounter procedure Mary Jasso MD Work Phone: General Surgery Comment on above: Calculus of gallblad samuel without cholecystitis without obstruction (Primary Dx); RUQ abdominal pain; Chest pain, unspecified type Start: 08-23-2023 End: 08-24-2023 Emergency department patient visit DR JOAQUÍN CARMICHAEL DO Facility: Start: 08-23-2023 End: 08-23-2023 Emergency department patient visit DR JOAQUÍN CARMICHAEL DO [facility] Start: 08-14-2023 End: 08-14-2023 Patient encounter procedure Orestes Heath MD Work Phone: [facility] Cardiology [place] Comment on above: Class 3 severe obesi ty due to excess calories with body mass index (BMI) of 40.0 to 44.9 in adult, unspecified whether serious comorbidity present (HCC) (Primary Dx); Family history of hypertrophic cardiomyopathy; Preoperative clearance; Gall stones; Chest pain, unspecified type Start: 08-14-2023 End: 08-14-2023 Preoperative state Orestes Heath MD Work Phone: [facility] Work Phone: Start: 07-25-2023 Telephone encounter Zulema olivo DO Work Phone: [facility] Comment on above: Appointment Request Start: 05-24-2023 Refill Zulema Deleon Work Phone: [facility] Comment on above: Nausea and vomiting, unspecified vomiting type Start: 04-14-2023 End: 04-14-2023 Patient encounter procedure Vannessa Ellis MD Work Phone: Reproductive Endocrinology Inf[facility] Comment on above: NO SHOW (Primary Dx) Start: 03-27-2023 End: 03-27-2023 Office outpatient new 30 minutes Quintin Montiel DO Work Phone: [facility] Comment on above: Epigastric pain (Sona mayra Dx); Nausea and vomiting, unspecified vomiting type; Missed menses Start: 12-05-2022 End: 12-05-2022 Subsequent hospital visit by physician [facility] Non-Invasive Cardiology Comment on above: Arrived Start: 02-24-2022 ambulatory Nerissa Haskins ALTA Feldman [facility] Comment on above: Population Health Na vigation Outreach (HCC) Start: 11-01-2020 End: 11-01-2020 Emergency department patient visit [facility] Emergency Dept Comment on above: Numbness (Primary Dx ); Cervical radiculopathy Start: 11-13-2019 End: 11-13-2019 Emergency department patient visit MICHELE Veliz [facility] Start: 11-05-2019 End: 11-05-2019 Emergency department patient visit MARCY SCHMITZ GUARDADO [facility] Start: 05-13-2017 End: 05-13-2017 Evaluation and management of inpatient Family Physician Unavailable Facility:[facility] Start: 05-12-2017 Ambulatory Facility:[id number] Start: 04-22-2017 End: 04-22-2017 Emergency department patient visit Agustin Villa Facility:[facility] Start: 04-22-2017 Ambulatory Facility:9 [id number] Start: 03-07-2017 End: 03-07-2017 Ambulatory Sherif Azevedo Facility:[facility] Procedures Date Procedure Procedure Detail Performing Clinician Start: 12-16-2024 Estimated creatinine clearance No Primary Care Physician Start: 12-16-2024 Urnls dip stick/tabl et reagent auto microscopy No Primary Care Physician Start: 12-16-2024 US scan of gallbladder No Primary Care Physician Start: 11-29-2024 Computed tomography of abdomen and pelvis with intravenous contrast No Primary Care Physician Start: 11-29-2024 Estimated creatinine clearance No Primary Care Physician Start: 08-01-2024 Radex shoulder compl ete minimum 2 views Francisco Combs MD Work Phone: Start: 06-14-2024 Us pelvic nonobstetr ic real-time image complete Елена Kim APRN.ADHESIVE BANDAGE MACHINE OPERATOR Work Phone: Start: 06-03-2024 Microscopic observat ion [...] Phone: Start: 03-27-2023 Comprehensive metabo lic panel Quintin Daleyd DO Work Phone: Start: 03-27-2023 Urine test visual color cmprsn meths Greenevers Khalid DO Work Phone: Start: 03-27-2023 Adult depression scr eening assessment Quintin Khalid DO Work Phone: Start: 12-05-2022 Ecg routine ecg w/le ast 12 lds i&r only Victor M Foster MD Work Phone: Start: 11-01-2020 Radex spine cervical 2 or 3 views Vianey nAn PA-C Work Phone: Start: 11-13-2019 Urinalysis MARCY Cárdenas Comment on above: Result Comment: URIN ALYSIS Performed By: #### 2 [id number] #### [facility],1 [facility] [address] Start: 03-07-2017 Delivery of Products of Conception, External Approach Sherif Azevedo Plan of Treatment Date Care Activity Detail Author Start: 2069 RSV Immunization for Adults (1 - 1-dose 75+ series) RSV Immunization for Adults (1 - 1-dose 75+ series) [facility] Start: 2054 RSV Immunization aged 60 or older (1 - 1-dose 60+ series) RSV Immunization aged 60 or older (1 - 1-dose 60+ series) [facility] Start: 02-21-2044 Zoster Vaccines (1 of 2) Zoster Vaccines (1 of 2) [facility] Start: 06-03-2029 Screening for malignant neoplasm of cervix Cervical Cancer Screening [facility] Start: 06-03-2027 Screening for malignant neoplasm of cervix [facility] Start: 06-03-2025 End: 06-03-2025 Patient encounter procedure 06/03/2025 3:00 PM EST Office Visit OB/Gynecology [address] [place] [address] Елена Kim APRN.ADHESIVE BANDAGE MACHINE OPERATOR [address] [place] [address] Annual OB/Gynecology Comment on above: Annual Start: 01-20-2025 Influenza vaccination [facility] Start: 11-29-2024 [facility] Start: 10-30-2024 End: 10-30-2024 Patient encounter procedure 10/30/2024 11:15 AM EDT Office Visit [facility] GENERAL SURGERY DEPARTMENT [address] [facility] [address] [place] [address] Paramjit Robertson MD [address] [place] [id number] POST-OP LAP MALISSA [facility] GENERAL SURGERY DEPARTMENT Comment on above: POST-OP LAP MALISSA Start: 10-17-2024 End: 10-17-2024 Admission to same day surgery center 10/17/2024 11:15 AM EDT - 10/17/2024 1:35 PM EDT Surgery [place] SUR[place]ERY OR [address] [facility] [place] [address] Paramjit Robertson MD [address] [facility] [address] [place] [phone] LAPAROSCOPIC CHOLECYSTECTOMY [place] SURGERY OR Comment on above: LAPAROSCOPIC CHOLECYSTECTOMY Start: 10-17-2024 End: 10-17-2024 Laparoscopy surg cholecystectomy LAPAROSCOPIC CHOLECYSTECTOMY Calculus of gallbladder without cholecystitis without obstruction 10/17/2024 11:15 AM EDT [place] OR Start: 10-17-2024 Subsequent hospital visit by physician 10/17/2024 11:15 AM EDT Hospital Encounter [place] SUR[facility] [place] [address] [place] [address] Paramjit Robertson MD [address] [facility] [address] [place] [phone] Calculus of gallbladder without cholecystitis without obstruction [K80.20] [place] [facility] [place] Comment on above: Calculus of gallbladder without cholecys titis without obstruction [K80.20] Start: 10-10-2024 End: 10-10-2024 ambulatory 10/10/2024 3:00 PM EDT PAT Pre [facility] Testing [facility] [place] [id number] LAPAROSCOPIC CHOLECYSTECTOMY Pre Surgical Testing Comment on above: LAPAROSCOPIC CHOLECYSTECTOMY Start: 09-26-2024 End: 12-26-2024 Alanine aminotransferase [Enzymatic activity/volume] in Serum or Plasma ALANINE AMINOTRANSFERASE / SGPT Lab Routine Calculus of gallbladder without cholecystitis without obstruction Expected: 09/26/2024, Expires: 12/26/2024 [facility] Comment on above: Expected: 09/26/2024, Expires: Start: 09-26-2024 End: 12-26-2024 Alkaline phosphatase [Enzymatic activity/volume] in Serum or Plasma ALKALINE PHOSPHATASE Lab Routine Calculus of gallbladder without cholecystitis without obstruction Expected: 09/26/2024, Expires: 12/26/2024 [facility] Comment on above: Expected: 09/26/2024, Expires: Start: 09-26-2024 End: 08-07-2025 Aspartate aminotransferase [Enzymatic activity/volume] in Serum or Plasma ASPARTATE AMINOTRANSFERASE/SGOT Lab Routine Calculus of gallbladder without cholecystitis without obstruction Expected: 09/26/2024, Expires: 12/26/2024 [facility] Comment on above: Expected: 09/26/2024, Expires: Start: 09-26-2024 End: 12-26-2024 Bilirubin.total [Mass/volume] in Serum or Plasma BILIRUBIN TOTAL BLD Lab Routine Calculus of gallbladder without cholecystitis without obstruction Expected: 09/26/2024, Expires: 12/26/2024 [facility] Comment on above: Expected: 09/26/2024, Expires: Start: 09-26-2024 End: 12-26-2024 CBC panel - Blood by Automated count COMPLETE BLOOD COUNT Lab Routine Calculus of gallbladder without cholecystitis without obstruction Expected: 09/26/2024, Expires: 12/26/2024 [facility] Comment on above: Expected: 09/26/2024, Expires: Start: 09-09-2024 End: 09-09-2024 Patient encounter procedure 09/09/2024 11:30 AM EDT Office Visit [facility] [address] [place] [address] Thor Huang APRN.ADHESIVE BANDAGE MACHINE OPERATOR [address] [place] [address] cardiac clearance for cholecystectomy on 10/17/24 [facility] Comment on above: cardiac clearance for cholecystectomy on 10/17/24 Start: 06-24-2024 End: 06-24-2024 Patient encounter procedure 06/24/2024 12:45 PM EST Office Visit OB/Gynecology [address] [place] [address] Елена Kim APRN.ADHESIVE BANDAGE MACHINE OPERATOR [address] [place] [address] discuss ultrasound results OB/Gynecology Comment on above: discuss ultrasound results Start: 06-14-2024 End: 06-14-2024 ambulatory 06/14/2024 11:00 AM EST Procedure OB/Gynecology [address] [place] [address] Remote, [employer] [facility] [address] [place] [address] Irregular menstrual cycle [N92.6] OB/Gynecology Comment on above: Irregular menstrual cycle [N92.6] Start: 06-12-2024 End: 06-12-2025 XR Knee - left 1 or 2 Views XR knee 1 or 2 views left Imaging Routine Pain in both knees, unspecified chronicity Expected: 06/12/2024, Expires: 06/12/2025 [facility] Client24 Comment on above: Expected: 06/12/2024, Expires: Start: 06-12-2024 End: 06-12-2025 XR Knee - right 1 or 2 Views XR knee 1 or 2 views right Imaging Routine Pain in both knees, unspecified chronicity Expected: 06/12/2024, Expires: 06/12/2025 [facility] Client24 Comment on above: Expected: 06/12/2024, Expires: Start: 06-12-2024 End: 06-12-2025 XR knees anteroposterior standing bilateral XR knees anteroposterior standing bilateral Imaging Routine Pain in both knees, unspecified chronicity Expected: 06/12/2024 (Approximate), Expires: 06/12/2025 [facility] Client24 System Work Phone: Comment on above: Expected: 06/12/2024 (Approximate), Expi res: 06/12/2025 Start: 06-10-2024 End: 06-10-2024 Patient encounter procedure 06/10/2024 2:45 PM EST Office Visit General Surgery [address] [place] [id number] Mary Jasso MD [address] [place] [phone] Gallbladder pain that has been persistent General Surgery Comment on above: Gallbladder pain that has been persisten t Start: 06-03-2024 End: 09-02-2024 17-Hydroxyprogesterone [Mass/volume] in Serum or Plasma [facility] Comment on above: Expected: 06/03/2024, Expires: Start: 06-03-2024 End: 09-02-2024 DHEA-S BLD [facility] Comment on above: Expected: 06/03/2024, Expires: Start: 06-03-2024 End: 09-02-2024 Estradiol (E2) [Mass/volume] in Serum or Plasma [facility] Comment on above: Expected: 06/03/2024, Expires: Start: 06-03-2024 End: 09-02-2024 Follitropin [Units/volume] in Serum or Plasma [facility] Comment on above: Expected: 06/03/2024, Expires: Start: 06-03-2024 End: 09-02-2024 Hemoglobin A1c in Blood [facility] Comment on above: Expected: 06/03/2024, Expires: Start: 06-03-2024 End: 09-02-2024 Lutropin [Units/volume] in Serum or Plasma [facility] Comment on above: Expected: 06/03/2024, Expires: Start: 06-03-2024 End: 09-02-2024 Prolactin [Mass/volume] in Serum or Plasma [facility] Comment on above: Expected: 06/03/2024, Expires: Start: 06-03-2024 End: 09-02-2024 TESTOSTERONE, FREE AND TOTAL, BY EQUILIBRIUM ULTRAFILTRATION MASS SPECTROMETRY [facility] Comment on above: Expected: 06/03/2024, Expires: Start: 06-03-2024 End: 09-02-2024 Thyrotropin [Units/volume] in Serum or Plasma [facility] Work Phone: Comment on above: Expected: 06/03/2024, Expires: Start: 06-03-2024 End: 06-03-2025 US Pelvis PELVIC US [facility] Anc Imaging Routine Irregular menstrual cycle Expected: 06/03/2024, Expires: 06/03/2025 [facility] Comment on above: Expected: 06/03/2024, Expires: Start: 04-25-2024 End: 04-25-2024 Patient encounter procedure 04/25/2024 9:40 AM EST Office Visit OB/Gynecology [address] [place] [address] Emily Ware MD [address] [place] [address] Amenorrhea >20 days OB/Gynecology Comment on above: Amenorrhea >20 days Start: 04-11-2024 End: 04-11-2024 Patient encounter procedure 04/11/2024 8:45 AM EST Office Visit [facility] Advanced [facility]aroscopic [facility] [address] [place] [address] Luis F Dick DO [address] [facility] [address] [place] [address] [facility] Start: 03-27-2024 Depression Screening Depression Screening [facility] Start: 02-26-2024 End: 02-26-2024 Patient encounter procedure 02/26/2024 11:20 AM EDT Office Visit Cardiology [address] [place] [address] Wstr, Nurse Card Admin [facility] [address] [place] [address] Family history of hypertrophic cardiomyopathy [Z82.49]; Chest pain, unspecified type [R07.9] Cardiology Comment on above: Family history of hypertrophic cardiomyo juan r [Z82.49]; Chest pain, unspecified type [R07.9] Start: 02-21-2024 Screening for malignant neoplasm of cervix [facility] Start: 01-21-2024 Covid-19 Vaccine ( season) Covid-19 Vaccine ( season) [facility] Start: 01-21-2024 Influenza vaccination Influenza Vaccine (#1) [facility] Start: 01-12-2024 End: 01-12-2024 Patient encounter procedure 01/12/2024 1:50 PM EDT Office Visit Cardiology [address] [place] [address] Family history of hypertrophic cardiomyopathy [Z82.49]; Chest pain, unspecified type [R07.9] Cardiology Comment on above: Family history of hypertrophic cardiomyo juan r [Z82.49]; Chest pain, unspecified type [R07.9] Start: 08-11-2023 End: 08-11-2023 Patient encounter procedure 08/11/2023 3:00 PM EDT Office Visit [facility] [address]rd [place] [phone] Vesna Wright DO [address] [place] [address] [facility] Start: 05-22-2023 Depression Assessment Depression Assessment [facility] Start: 04-03-2023 End: 04-03-2023 Patient encounter procedure 04/03/2023 1:10 PM EST Office Visit [facility] [address]rd [place] [phone] Zulema Sorto DO [address] [place], [place] [id number] [facility] Start: 01-20-2023 Covid-19 Vaccine ( season) Covid-19 Vaccine ( season) [facility] Start: 01-20-2023 Influenza vaccination Influenza Vaccine (#1) [facility] Client24 Start: 05-22-2022 Depression Assessment Depression Assessment [facility] Start: 01-20-2022 Influenza vaccination INFLUENZA (#1) [facility] Start: 11-12-2021 PAP TESTING PAP TESTING [facility] Start: 11-12-2021 Screening for malignant neoplasm of cervix [facility] Start: 05-22-2021 DEPRESSION ASSESSMENT DEPRESSION ASSESSMENT [facility] Start: 01-20-2021 Influenza vaccination Flu vaccine (Season Ended) [facility] Work Phone: Start: 12-07-2020 COVID-19 VACCINE (3 - Booster for Moderna series) COVID-19 VACCINE (3 - Booster for Moderna series) [facility] Start: 12-07-2020 COVID-19 Vaccine (3 - Moderna series) COVID-19 Vaccine (3 - Moderna series) [facility] Start: 01-27-2017 DTaP/Tdap/Td Vaccines (5 - Td or Tdap) DTaP/Tdap/Td Vaccines (5 - Td or Tdap) [facility] Start: 01-27-2017 DTaP/Tdap/Td Vaccines (6 - Td or Tdap) DTaP/Tdap/Td Vaccines (6 - Td or Tdap) [facility] Start: 01-27-2017 Urine microalbumin profile [facility] Start: 2015 Screening for malignant neoplasm of cervix Pap Smear [facility] Start: 02-21-2012 Anxiety Screening Anxiety Screening [facility] Start: 02-21-2012 Depression Screening Depression Screening [facility] Start: 02-21-2012 HEPATITIS C SCREENING HEPATITIS C SCREENING [facility] Start: 02-21-2012 Hepatitis C screening Hepatitis C Screening [facility] Start: 2006 COVID-19 Vaccine (1) COVID-19 Vaccine (1) [facility] Work Phone: Start: 2006 Depression Screening Depression Screening [facility] Start: 02-21-2000 Pneumococcal Vaccine: Pediatrics (0 to 5 Years) and At-Risk Patients (6 to 64 Years) (1 - PCV) Pneumococcal Vaccine: Pediatrics (0 to 5 Years) and At-Risk Patients (6 to 64 Years) (1 - PCV) [facility] Start: 1998 Varicella vaccination Varicella Vaccines (2 of 2 - 2-dose childhood series) [facility] Start: 07-10-1995 Varicella vaccination Varicella Vaccines (1 of 2 - 2-dose childhood series) [facility] Start: 1994 HIV screening HIV Screening [facility] Start: 1994 Lipid panel Lipid Panel [facility] End: 09-30-2025 ECG COMPLETE ECG COMPLETE ECG Routine Family history of hypertrophic cardiomyopathy 1 Occurrences starting 09/30/2024 until 09/30/2025 [facility] Work Phone: Comment on above: 1 Occurrences starting 09/30/2024 until 09/30/2025 End: 08-13-2024 Echocardiography ECHO Cardiology Routine Family history of hypertrophic cardiomyopathy Chest pain, unspecified type 1 Occurrences starting 08/14/2023 until 08/13/2024 [facility] Work Phone: Comment on above: 1 Occurrences starting 08/14/2023 until 08/13/2024 H&P for surgery H&P FOR SURGERY Procedures Routine Calculus of gallbladder without cholecystitis without obstruction Ordered: 09/26/2024 [facility] Work Phone: Comment on above: Ordered: 09/26/2024 End: 03-29-2024 Neisseria gonorrhoeae DNA [Presence] in Cervical mucus by ELHAM with probe detection [facility] Client24 [facility] Work Phone: Comment on above: Once (Lab) for 1 Occurrences starting until 03/29/2024 PAP TEST PAP TEST Lab Mima russell Encounter for gynecological examination (general) (routine) without abnormal findings Screening for cervical cancer Encounter for screening for human papillomavirus (HPV) 06/03/2024 3:14 PM EST [facility] Patient Education [facility] Work Phone: End: 08-13-2024 STRESS ECHO TREADMILL STRESS ECHO TREADMILL Cardiology Routine Family history of hypertrophic cardiomyopathy Chest pain, unspecified type 1 Occurrences starting 08/14/2023 until 08/13/2024 [facility] Work Phone: Comment on above: 1 Occurrences starting 08/14/2023 until 08/13/2024 [employer] [facility] Immunizations Immunization Date Immunization Notes Care Provider Alexi garcia 03-07-2018 influenza virus vaccine, unspecified formulation Vannessa Ellis MD Work Phone: [facility] 01-27-2007 meningococcal polysaccharide (groups A, C, Y and W-135) diphtheria toxoid conjugate vaccine (MCV4P) Quintin Montiel DO Work Phone: [facility] 01-27-2007 Meningococcal, MCV4, unspecified conjugate formulation(groups A, C, Y and W-135) Nerissa Haskins MA [facility] Work Phone: 01-27-2007 tetanus toxoid, redu mónica diphtheria toxoid, and acellular pertussis vaccine, adsorbed Nerissa Haskins MA [facility] Work Phone: 02-16-2000 poliovirus vaccine, inactivated Quintin Khalid DO Work Phone: [facility] 05-22-1997 Chicken Pox (disease) Nerissa mauricio [facility] Work Phone: 05-22-1997 varicella virus vaccine Quintin Khalid DO Work Phone: [facility] 06-12-1995 DTP-Haemophilus influenzae type b conjugate vaccine Quintinsarah Kamaraalid DO Work Phone: [facility] 06-12-1995 hepatitis B vaccine, pediatric or pediatric/adolescent dosage Nerissa Haskins [facility] Work Phone: 06-12-1995 measles, mumps and rubella virus vaccine Nerissa Haskins [facility] Work Phone: 06-12-1995 Tetramune Nerissa Haskins [facility] Work Phone: 1994 DTP-Haemophilus influenzae type b conjugate vaccine Nerissa Haskins [facility] Work Phone: 1994 trivalent poliovirus vaccine, live, oral Nerissa Haskins [facility] Work Phone: 1994 DTP-Haemophilus influenzae type b conjugate vaccine Nerissa Haskins [facility] Work Phone: 1994 hepatitis B vaccine, pediatric or pediatric/adolescent dosage Nerissa Haskins [facility] Work Phone: 1994 trivalent poliovirus vaccine, live, oral Nerissa Haskins [facility] Work Phone: 1994 DTP-Haemophilus influenzae type b conjugate vaccine Nerissa Haskins [facility] Work Phone: 1994 hepatitis B vaccine, pediatric or pediatric/adolescent dosage Nerissa Haskins [facility] Work Phone: 1994 trivalent poliovirus vaccine, live, oral Nerissa Haskins MA [facility] Work Phone: Payers Date Payer Category Payer Self-pay 2022 Medicaid HMO [employer] [facility] [id number] 2022 Unknown [id number] 2020 Unknown [facility] [id number] 2020-Present [phone] [address] [address] [place] [address] [facility] [id number] 2017 Medicaid [id number] 2016 Unknown [id number] 1994 Unknown [id number] 1994 Unknown [id number] 1994 Unknown [id number] Unknown [id number] Unknown [id number] Unknown [id number] Unknown [id number] Unknown [id number] Social History Date Type Detail Facility Start: 11-01-2020 End: 12-16-2024 Tobacco smoking status NHIS Current every day smoker [facility] Work Phone: History of tobacco use [facility] Start: 11-01-2020 End: 12-29-2023 Tobacco use and exposure Never used [facility] Start: 11-01-2020 End: 03-27-2023 Alcohol intake Lifetime non-drinker (finding) [facility] Work Phone: Start: 11-01-2020 History SDOH Alcohol Frequency 1 [facility] Work Phone: Start: 1995 Sex Assigned At Not on file S [employer] Work Phone: Start: 11-25-2022 End: 12-05-2022 Exposure to SARS-CoV-2 (event) Not sure [facility] Start: 10-20-2020 End: 12-29-2023 Tobacco smoking status NHIS Never smoked tobacco [facility] Work Phone: Start: 01-19-2021 End: 10-09-2024 Alcohol intake Current non-drinker of alcohol (finding) [facility] Start: 10-20-2020 End: 12-29-2023 Tobacco Comment vapes without nicotine [facility] Start: 1995 Sex Assigned At Female C [facility] Start: 12-05-2022 End: 09-09-2024 History of Social function [facility] Start: 12-05-2022 End: 09-09-2024 Tobacco use panel [facility] Start: 03-27-2023 Tobacco smoking stat [facility] Ex-smoker [facility] History of tobacco use Current smoker [facility] Has the [employer]rend[employer] Mondays, [employer] or [employer] threatened to shut off services in your home in past 12Mo No [facility] Are you now , , , , never or living with a partner? [facility] How often to you hav e a drink containing alcohol? Never [facility] How many standard dr inks containing alcohol do you have on a typical day? Patient does not drink [facility] (I/We) worried wheth er (my/our) food would run out before (I/we) got money to buy more. Never true [facility] Start: 05-30-2023 Sexual orientation Bisexual (finding ) [facility] Tobacco Nicotine Use: Va ping Product in Last 90 Days. Type: Electronic Cigarettes (Vaping). [facility] Tobacco smoking status No Smokin g Status Entered [facility] Start: 12-20-2021 Sex Female (finding) [facility] Goals Date Patient Goal Desired Activity /State Personal health goal Functional Status Date Assessment Result Facility 08-23-2023 Functional Status [facility] 09-02[facility]2014 Are you deaf, or do you have serious difficulty hearing No 09/02/2014 2:30 PM EDT Sis Connors LPN No [facility] 09-02-2014 Are you blind, or do you have serious difficulty seeing, even when wearing glasses No 09/02/2014 2:30 PM EDT iSs Connors LPN No [facility] 09-02-2014 Do you have serious difficulty walking or climbing stairs No 09/02/2014 2:30 PM Sis Caro LPN No [facility] 09-02-2014 Do you have difficul ty dressing or bathing No 09/02/2014 2:30 PM EDSis Long LPN No [facility] 09-02-2014 Because of a physica l, mental, or emotional condition, do you have difficulty doing errands alone such as visiting a physician's office or shopping No 09/02/2014 2:30 PM EDT Sis Connors LPN No [facility] Mental Status Date Assessment Result Facility 08-23-2023 Mental Status Oriented x [facility] 09-02-2014 Because of a physica l, mental, or emotional condition, do you have serious difficulty concentrating, remembering, or making decisions No 09/02/2014 2:30 PM EDT Sis Connors LPN No [facility] Clinical Notes 02-05-2015 to 12-16-2024 Note Date & Type Note Facility 12-16-2024 Discharge summary [facility] 12-16-2024 Radiology Diagnostic study note [facility] Imaging Services [address] [place] [address] Gallbladder MR#: [id number] Acct: [id number] Name: AGUEDA LEWIS R Rep #: [id number] : 1995 F 29 From: Serge Mujica MD PCP: Care Physician,No Primary Status: REG ER Study:Gallbladder Date of Exam: 12/16/24 Exam# [id number] Ordering Dr: Keren Dodson DO PROCEDURE: GALLBLADDER N/A REASON FOR EXAM: PAIN COMPARISON: Prior CT scan of the abdomen and pelvis dated November 29, 2024. FINDINGS: Liver: Hepatomegaly. The liver measures 18.2 cm. Gallbladder: Multiple gallstones. Positive sonographic Porter's sign. Gallbladder wall slightly thickened measuring 4 mm. Common bile duct: Normal measuring 5 mm. . Pancreas: Normal Other: Visualized portions of the right kidney are unremarkable. No right upperquadrant ascites. US/Gallbladder IMPRESSION: Multiple gallstones. Mildly thickened gallbladder wall. Positive sonographic Oprter's sign. Hepatomegaly. Reading Location: [facility] CC: Dr. Aliosn Dodson DO; No Primary Care Physician ~ Berry Picker: Signed [facility] 12-16-2024 Discharge summary Note Date/Time December 16, 2024 4:43pm [facility] Medical Records Department [address] [place] [address] Emergency Department Summary 12/16/24 MR#: [id number] Acct: [id number] Name: AGUEDA LEWIS R Rep #:[id number] : 1995 29 From: Alison Deleon PCP: Care Physician,No Primary Status :REG ER Location: ED HPI HPI - GI History of Present Illness Chief Complaint: Abd Pain Informant: patient Narrative Narrative: Patient is a 29 year old female with history of biliary colic/gallstones, anxiety and depression presenting with worsening right upper quadrant abdominal pain. States started on (4 days ago) but is significantly worsening. She is able drink fluids not been able to eat anything for the past 2 days because of pain. Denies associated nausea or vomiting. Denies any change in bowel movements. States she has had back pain this bad. Denies radiation of pain. Was concerning for s/p work tonight. Denies any fever or chills. Was supposed to see general surgery for follow-up about this on 12/06 but did not relate she had an appointment so she missed it. Has been seen in the ER multiple times over the past year for biliary colic and cholelithiasis. Denies any urinary symptoms. Denies any concern for . [facility] Medical History Gallstone Wears contact lenses Depression Anxiety Easy bruising Back pain Gastric reflux Vapes nicotine containing substance History of stress test Anemia Home Medications ?Medication ?Instructions ?Recorded ?Last Taken ?Type quetiapine 25 mg tablet 25 mg PO QHS 11/27/23 Unknow n History sertraline 100 mg tablet 150 mg PO DAILY 11/27/23 Unk nown History ondansetron 4 mg disintegrating 4 mg PO TID PRN nausea and 11/29/24 Unknown Rx tablet vomiting #21 tabs oxycodone-acetaminophen 5 mg-325 1 tab PO Q6H PRN pain 3 days #12 11/29/24 Unknown Rx mg tablet (Percocet) tabs dicyclomine 20 mg tablet 40 mg (2 x 20 mg) PO TID PRN 12/16/24 Unknown Rx abdominal pain #20 tabs Allergy/AdvReac Type Severity Reaction Status Date / Time No Known Allergies Allergy Verified 12/16/24 11:59 Family History Grandmother Diabetes Mother Heart disease Surgical History H/O adenoidectomy Social History Smoking Status: Current every day smoker tobacco type: e-cigarettes ROS ROS ED Constitutional Constitutional ED: Denies chills or fever(s) Gastrointestinal Gastrointestinal: Reports abdominal pain; Denies diarrhea, nausea or vomiting Genitourinary Genitourinary ED: Denies dysuria or hematuria Musculoskeletal Musculoskeletal: Denies arthralgias or myalgias Integumentary Denies rash Neurologic Neurologic: Denies weakness Hematologic/Lymphatic Hematologic/Lymphatic: Denies easy bleeding or easy bruising EXAM Physical Exam Const Vital Signs: 12/16/24 11:57 12/16/24 13:56 12/16/24 15:00 Temperature 98.2 F Temperature Source Oral Pulse Rate 98 90 92 Respiratory Rate 18 16 16 Blood Pressure 124/86 H 130/79 H 128/81 H Blood Pressure Mean 98 96 96 Pulse Ox 99 99 99 Oxygen Delivery Method Room Air Positive well nourished and well developed General Appearance ED: well developed and NAD HEENT Reports moist mucous membranes Neck supple Resp normal respiratory effort and clear to auscultation bilaterally Cardio regular rate and regular rhythm GI Auscultation: normoactive bowel sounds Palpation: soft and tender RUQ and Porter's sign; Negative for guarding, rigid or rebound tenderness present Back/Spine no CVA tenderness Extremity full ROM General Extremety ED: Negative for edema General Extremity: Negative for edema Neuro Sensorium / Orientation: alert Motor Exam: Negative for general weakness Psych mental status grossly normal and thought process normal Skin no wounds General Skin Exam: Negative for jaundice MDM MDM MDM Narrative Medical decision making narrative: Patient via for ongoing epigastric/right upper quadrant abdominal pain. Has a prolonged history of biliary colic and renal colic. Is able to drink fluids butfood bothers her. Denies any fevers. Differential includes biliary colic, choledocholithiasis, acute cholecystitis, pancreatitis and electrolyte derangement. Patient given Toradol for pain control and IV fluids in the emergency room. Workup including CBC, CMP and urinalysis as well as urine is largely negative. No leukocytosis present. No transaminitis present. Right upper quadrant ultrasound shows multiple gallstones with a mildly thickened gallbladder wall but no pericholecystic fluid. Gallbladder wall is 4 mm. Patient appears mildly improved with Toradol. Case discussed with Dr. Easley. He recommend starting the patient Bentyl and states that he she would be a good elective robotic candidate. Patient is comfortable's plan of care. States that she has been tolerating liquids fine. She is not have any findings in her labs consistent with acute malnutrition or MALIK. Given return precautions. Discharged home with a note states she can return to work tonight. Lab Data Attestation: I reviewed the patient's lab results. Labs: Laboratory Results - last 24 hr 12/16/24 13:38 WBC 6.8 RBC 4.36 Hgb 11.2 L Hct 35.9 L MCV 82.3 MCH 25.7 L MCHC 31.2 L RDW Std Deviation 43.8 RDW Coeff of Marvin 14.6 Plt Count 279 MPV 11.1 Immature Gran % (Auto) 0.300 Neut % (Auto) 65.2 Lymph % (Auto) 24.6 Grand % (Auto) 7.3 Eos % (Auto) 2.0 Baso % (Auto) 0.6 Absolute Neuts (auto) 4.5 Absolute Lymphs (auto) 1.68 Nucleated RBC % 0 Sodium 138 Potassium 4.2 Chloride 107 Carbon Dioxide 22.9 Anion Gap 9 BUN 9 Creatinine 0.94 Estim Creat Clear Calc 127.64 Est GFR (MDRD) Non-Af 84 BUN/Creatinine Ratio 9.6 L Glucose 86 Calcium 9.0 Total Bilirubin 0.24 Direct Bilirubin 0.11 AST 22 ALT 27 Alkaline Phosphatase 81 Total Protein 6.8 Albumin 3.8 Globulin 2.9 Lipase 38 Urine Color Yellow Urine Clarity Clear Urine pH 7.0 Ur Specific [place] 1.010 Urine Protein Negative Urine Glucose (UA) Normal Urine Ketones Negative Urine Occult Blood Negative Urine Nitrite Negative Urine Bilirubin Negative Urine Urobilinogen Normal Ur Leukocyte Esterase Negative Urine RBC 0 SEEN Urine WBC 0 SEEN Ur Squamous Epith Cells 0-5 SEEN Urine Bacteria RARE Urine Mucus 0 SEEN Urine Test Negative Radiography Diagnostic Testing: Clinical Impression(s) from Imaging Studies Gallbladder Ultrasound 12/16/24 13:23 IMPRESSION: Multiple gallstones. Mildly thickened gallbladder wall. Positive sonographic Porter's sign. Hepatomegaly. Reading Location: [id number] Discharge Plan Triage Chief Complaint: Abd Pain ED Provider: Alison Dodson Dx/Rx/DC Orders Clinical Impression: Biliary colic, Abdominal pain, RUQ Instructions: ED Gallstones with Biliary Colic Prescriptions: New dicyclomine 20 mg tablet 40 mg PO TID PRN (Reason: abdominal pain) Qty: 20 0RF No Action quetiapine 25 mg tablet 25 mg PO QHS sertraline 100 mg tablet 150 mg PO DAILY ondansetron 4 mg tablet,disintegrating 4 mg PO TID PRN (Reason: nausea and vomiting) Qty: 21 0RF oxycodone-acetaminophen [Percocet] 5-325 mg tablet 1 tab PO Q6H PRN (Reason: pain) 3 Days Qty: 12 0RF Stand Alone Forms: ED Work / School Excuse Primary Care Provider: Care Physician,No Primary Referrals: Ion Easley MD [Med Staff - Active Staff] - Care Physician,No Primary [Primary Care Provider] - Activity Restrictions/Additional Instructions: Please call general surgery office tomorrow to schedule outpatient follow-up. You may turn to work tonight. If you develop worsening pain again, fever or yellow discoloration to your eyes please immediately return to the emergency room. Print Language: Angolan Disposition Disposition: Home, Self Care What to do if you have Problems For any increased pain, shortness of breath, bleeding, nausea or vomiting, chestpain, or any unexpected problems, contact your Primary Care Provider. Call [facility] ([phone]) or report to the closest Emergency Room. Call 911 if necessary. 12/16/24 1643 <Electronically signed by Alison Dodson DO> Cosigner Signature (if applicable): CC: No Primary Care Physician ~ Signed [facility] Work Phone: [phone]) 605-352307-28-2025 NoteHNO ID: [id number] Author: RICK MCKINNON APRN.ADHESIVE BANDAGE MACHINE OPERATOR Service: ? Author Type: Nurse Practitioner Type: Progress Notes Filed: 12/16/2024 11:55 Note Text: URGENT CARE AMORY Cheri Lewis is a 29 year old female. Patient presents with: Pain: Right side and rib pain, pt has gallstones x 4 days HPI Nontoxic-appearing 29-year-old female presents urgent care chief complaint abdominal pain. Duration of symptoms 4 days. Associated symptoms progressively worsening abdominal pain. Was diagnosed with gallstones 1 year ago. OTC medications are not helping with pain management. Has been nauseous. Has been unable to eat for 2 days. Past medical history prescription medications allergies reviewed. Review of Systems Constitutional: Negative for chills, diaphoresis, fatigue and fever. HENT: Negative for congestion, drooling, ear discharge, ear pain, rhinorrhea, sinus pressure, sinus pain, sneezing, sore throat and trouble swallowing. Eyes: Negative for pain, discharge, redness, itching and visual disturbance. Respiratory: Negative for cough, chest tightness, shortness of breath and wheezing. Cardiovascular: Negative for chest pain. Gastrointestinal: Positive for abdominal pain and nausea. Negative for abdominal distention, blood in stool, constipation, diarrhea and vomiting. Genitourinary: Negative for difficulty urinating and dysuria. Musculoskeletal: Negative for arthralgias, joint swelling, neck pain and neck stiffness. Skin: Negative for rash. Neurological: Negative for dizziness, weakness, numbness and headaches. Objective BP 112/88 Pulse 85 Temp 36.8 ?C (98.3 ?F) Resp 18 Wt 120.8 kg (266 lb 5.1 oz) LMP 09/24/2024 (Exact Date) SpO2 99% BMI 37.14 kg/m? Physical Exam Constitutional: Appearance: Normal appearance. HENT: Mouth/Throat: Mouth: Mucous membranes are moist. Cardiovascular: Rate and Rhythm: Normal rate. Pulmonary: Effort: Pulmonary effort is normal. Breath sounds: Normal breath sounds. Abdominal: Tenderness: There is abdominal tenderness. There is guarding. There is no right CVA tenderness, left CVA tenderness or rebound. Neurological: Mental Status: She is alert. {ASSESSMENT/PLAN: 1. Right upper quadrant abdominal pain - ICD9: 789.01, ICD10: R10.11 Significant tenderness to palpation right upper quadrant. Referred to ED for imaging. Will be seen at [facility] Rick Mckinnon APRN.ADHESIVE BANDAGE MACHINE OPERATOR History and Record Review Clinical information obtained from an independent historian. History obtained from or confirmed by: parent. Disposition The patient was discharged. Transfer to ED was considered. Reason for not transferring: [facility] History of Present illness Narrative* Rick Mckinnon APRN.CNP - 12/16/2024 11:42 AM EDT URGENT CARE [facility] Agueda Lewis is a 29 year old female. Patient presents with: Pain: Right side and rib pain, pt has gallstones x 4 days HPI Nontoxic-appearing 29-year-old female presents urgent care chief complaint abdominal pain. Durationof symptoms 4 days. Associated symptoms progressively worsening abdominal pain. Was diagnosed with gallstones 1 year ago. OTC medications are not helping with pain management. Has been nauseous. Has been unable to eat for 2 days. Past medical history prescription medications allergies reviewed. Review of Systems Constitutional: Negative for chills, diaphoresis, fatigue and fever. HENT: Negative for congestion, drooling, ear discharge, ear pain, rhinorrhea, sinus pressure, sinuspain, sneezing, sore throat and trouble swallowing. Eyes: Negative for pain, discharge, redness, itching and visual disturbance. Respiratory: Negative for cough, chest tightness, shortness of breath and wheezing. Cardiovascular: Negative for chest pain. Gastrointestinal: Positive for abdominal pain and nausea. Negative for abdominal distention, blood in stool, constipation, diarrhea and vomiting. Genitourinary: Negative for difficulty urinating and dysuria. Musculoskeletal: Negative for arthralgias, joint swelling, neck pain and neck stiffness. Skin: Negative for rash. Neurological: Negative for dizziness, weakness, numbness and headaches. Objective BP 112/88 Pulse 85 Temp 36.8 C (98.3 F) Resp 18 Wt 120.8 kg (266 lb 5.1 oz) LMP 09/24/2024 (Exact Date) SpO2 99% BMI 37.14 kg/m Physical Exam Constitutional: Appearance: Normal appearance. HENT: Mouth/Throat: Mouth: Mucous membranes are moist. Cardiovascular: Rate and Rhythm: Normal rate. Pulmonary: Effort: Pulmonary effort is normal. Breath sounds: Normal breath sounds. Abdominal: Tenderness: There is abdominal tenderness. There is guarding. There is no right CVA tenderness, left CVA tenderness or rebound. Neurological: Mental Status: She is alert. {ASSESSMENT/PLAN: 1. Right upper quadrant abdominal pain - ICD9: 789.01, ICD10: R10.11 Significant tenderness to palpation right upper quadrant. Referred to ED for imaging. Will be seen at [facility] Rick Mckinnon APRN.ADHESIVE BANDAGE MACHINE OPERATOR History and Record Review Clinical information obtained from an independent historian. History obtained from or confirmed by:parent. Disposition The patient was discharged. Transfer to ED was considered. Reason for not transferring: Procedures [facility] Radiology Diagnostic study note [facility] Imaging Services [address] [place] [address] Abdomen/Pelvis W IV Cont ONLY MR#: [id number] Acct: [id number] Name: AGUEDA LEWIS Rep #: [id number] : 1995 F 29 From: Meche Chen MD PCP: Care Physician,No Primary Status: REG ER Study:Abdomen/Pelvis W IV Cont ONLY Date of E xam: 11/29/24 Exam# [id number] Ordering Dr: Akila Merritt DO PROCEDURE: ABDOMEN/PELVIS W IV CONT ONLY 11/29/2024 REASON FOR EXAM: RUQ PAIN TECHNIQUE: ABDOMEN/PELVIS W IV CONT ONLY Coronal and Sagittal reconstruction series were provided. CONTRAST:VOLUME: mL One or more dose reduction techniques were used (e.g., Automated exposure control, adjustment of the mA and/or kV according to patient size, use of iterative reconstruction technique. RADIATION DOSE SUMMARY: CTDlvol: mGy DLP: mGycm COMPARISON: none FINDINGS: Average sized liver showing homogenous parenchymal attenuation. No dilated intraor extra-hepatic biliary tracts. Gall bladder cholesterol stones and mild wall thickening with no related collections. Normal appearance of the pancreas with clear surrounding fat planes. The spleen, adrenal glands, aorta and IVC are unremarkable. Both kidneys are of average size and showing smooth outline with preserved parenchymal thickness. No renal calculi. No hydronephrosis. Distension of the urinary bladder showing mild wall thickening with no obvious masses. No obvious masses related to the pelvic viscera. Mild free pelvic fluid, likely physiological. The appendix appears unremarkable. No right iliac inflammatory changes. Mild gastric wall thickening, possibly gastritis. Advise clinical correlation. The examined ascending colon, the transverse colon, the descending colon & smallbowel loops areunremarkable. The stomach is unremarkable. No ascites or free air. No obvious pathologically enlarged lymph nodes. Scanned osseous structures show no osseous destruction. Scanned lung bases show no obvious abnormalities. CT/Abdomen/Pelvis W IV Cont ONLY IMPRESSION: Gall bladder cholesterol stones and mild wall thickening with no related collections. Mild gastric wall thickening, possibly gastritis. Advise clinical correlation. Urinary bladder wall thickening, possibly cystitis. Advise sonography, clinical and laboratory correlation. Reading [id number] CC: Shailesh Merritt, ; No Primary Care Physician ~ Berry Picker: Signed [facility]05-28-2025 Telephone encounter Note* Telephone Encounter - Jan Drake - 10/16/2024 11:34 AM EDT I phoned Agueda last Monday10/09/24 to remind [...] also see in her chart that her press machine operator has been attempting to reach her re garding her clearance. They have also made multiple attempts including mailing her a letter to let her know they'd clear her if she has the EKG they ordered. Per [facility], she never had this done. I am postponing the patient's surgery. She will need to call the office when she is ready to proceed. [facility]05-28-2025 Miscellaneous Notes* Telephone Encounter - Jan Drake - 10/16/2024 11:34 AM EDT I phoned Agueda last Monday10/09/24 to remind [...] also see in her chart that her press machine operator has been attempting to reach her re garding her clearance. They have also made multiple attempts including mailing her a letter to let her know they'd clear her if she has the EKG they ordered. Per [facility], she never had this done. I am postponing the patient's surgery. She will need to call the office when she is ready to proceed. documented in this encounterPremier Health05-28-2025 NoteHNO ID: [id number] Author: ASTRID GARCIA, MARIA ELENA Service: Nursing Author Type: Registered Nurse Type: Nursing Progress Note Filed: 10/16/2024 08:20 Note Text: Alison, in OR scheduling, notified of need for HANDP, FTS for PAT appt. She will notify his office.[facility]05-[facility]25 NoteHNO ID: [id number] Author: EZEQUIEL PAULINO APRN.CNP Service: Anesthesiology Author Type: Nurse Practitioner Type: Progress Notes Filed: 10/10/2024 15:29 Note Text: Summary: PAT Patient was no show for PAT. García with surgery scheduling notified.[facility]05-12-2025 Telephone encounter Note* Telephone Encounter - Margarita Gallego RN - 09/30/2024 9:16 AM EDT Called pt. No answer, no voicemail available. Margarita Gallego RN [facility]05-12-2025 Miscellaneous Notes* Telephone Encounter - Margarita Gallego RN - 09/30/2024 9:16 AM EDT Called pt. No answer, no voicemail available. Margarita Gallego RN * Telephone Encounter - Orestes Heath MD - 09/30/2024 8:49 AM EDT Pt not seen since 09/12. Needs an EKG at the very least (ordering one). Also needs a visit in general, not urgent. I will clear her without the visit, as long as she gets the EKG * Telephone Encounter - Margarita Gallego RN - 09/26/2024 10:54 AM EDT Cardiac Clearance dated 08/20/[address] Robertson available under the letter tab. Margarita Gallego RN documented in this encounterPremier [facility]05-12-2025 Telephone encounter Note * Telephone Encounter - Orestes Heath MD - 09/30/2024 8:49 AM EDT Pt not seen since 09/12. Needs an EKG at the very least (ordering one). Also needs a visit in general, not urgent. I will clear her without the visit, as long as she gets the EKG [facility]05-08-2025 Telephone encounter Note* Telephone Encounter - Margarita Gallego RN - 09/26/2024 10:54 AM EDT Cardiac Clearance dated 08/20/[address] Robertson available under the letter tab. Margarita Gallego RN [facility]03-13-2025 History of Present illness Narrative* Don Dimas RT(R) - 08/01/2024 11:30 AM EDT Radiology Service Progress Note PATIENT NAME: Agueda Lewis DATE OF SERVICE: August 01, 2024 TIME: 11:24 AM PATIENT IDENTITY VERIFICATION COMPLETED USING TWO (2) IDENTIFIERS: Name and Date of confirmedby patient verbally. FALL SCREENING: Has the patient had 2 falls in the last year or 1 fall with injury or currently using an Ambulatory Assistive Device (Walker, Cane, Wheelchair, Crutches, etc.)? No PATIENT GENDER DATA: Assigned female at . status: : No status:NO. PATIENT RELEVANT IMPLANT DATA REVIEWED: Not Applicable PATIENT PRESENTS WITH AN IMPLANTABLE OR ATTACHED MAINTENANCE MECHANIC ELEVATORS: No RADIOLOGY DEPARTMENT: General X-ray: Exam(s) Completed: Upper Extremity X- Ray(s): Shoulder, AP / TRUE AP / AXILLARY left PERIPHERAL IV DATA: Not applicable SIGNED BY: RT Reymundo(Kenneth) August 01, 2024 11:24 AM documented in this encounterPremier Health03-13-2025 NoteHNO ID: [id number] Author: DON DIMAS RT(R) Service: Radiology Author [...] PATIENT PRESENTS WITH AN IMPLANTABLE OR ATTACHED MAINTENANCE MECHANIC ELEVATORS: No RADIOLOGY DEPARTMENT: General X-ray: Exam(s) Completed: Upper Extremity X-Ray(s): Shoulder, AP / TRUE AP / AXILLARY left PERIPHERAL IV DATA: Not applicable SIGNED BY: RT Reymundo(R) August 01, 2024 11:24 [facility]03-13-2025 NoteHNO ID: [id number] Author: FRANCISCO COMBS MD Service: ? Author [...] is alert. Comments: Normal strength in hand duct layer, pincer grasp, and finger abduction. ASSESSMENT/PLAN: 1. [...] patient was discharged. OTC Medications were advised: [facility] History of Present illness Narrative* Francisco Combs MD - 08/01/2024 11:23 AM EDT [facility] Subjective Agueda Lewis is [...] left trapezius. Nontender AC joint, glenohumeral joint, clavicle)and bony tenderness (Discomfort left sternoclavicular joint) present. [...] is alert. Comments: Normal strength in hand duct layer, pincer grasp, and finger abduction. ASSESSMENT/PLAN: 1. [...] Medications were advised: Procedures documented in this encounterPremier Health02-17-2025 Instructions* Patient Instructions* Paramjit Robertson MD - 07/08/2024 3:20 PM [...] your digestive system. This blockage can cause bloating,nausea, vomiting, and pain in your abdomen, shoulder, back, or chest. Gallstones can also block theducts that channel the bile from the liver [...] through additional small incisions. Your gallbladder is removedthrough one of these incisions. What are the potential risks and complications? The risk of complications is very low, however, potential risks might include: Bleeding Infection Common bile duct injury Minor shoulder pain (from the carbon dioxide gas) Bile leakage What are the benefits of laparoscopic cholecystectomy? Less discomfort than regular surgery [place] hospital stay, with a quicker recovery time [...] closed using surgical clips and stitches. References [employer]. Cholecystectomy Accessed 11/27/2015. [employer]. Laparoscopic Gallbladder Removal (Patient Information from [employer] Accessed 11/27/2015. Copyright [id number] [facility]. All rights reserved documented in this encounterPremier Health02-17-2025 NoteHNO ID: [id number] Author: PARAMJIT ROBERTSON MD Service: ? Author Type: Physician Type: Progress Notes Filed: 07/08/2024 16:50 Note Text: Agueda Lewis is a 29 year old female who is here for reevaluation. We last saw her about a year ago and at that point recommended a cholecystectomy. She reported having some cardiac issues and went to see a press machine operator. She represents today for reevaluation regarding cholecystectomy. [...] Level: 4 - Moderate Paramjit Robertson M.D., F.A.C.S.[facility]02-17-2025 History of Present illness Narrative* Paramjit Robertson MD - 07/08/2024 3:13 PM EST Agueda Lewis is a 29 year old female who is here for reevaluation. We last saw her about a year ago and at that point recommended a cholecystectomy. She reported having some cardiac issues and went to see a press machine operator. She represents today for reevaluation regarding cholecystectomy. [...] in no acute distress, well-hydrated, well nourished. andObese. Abdomen: Negative findings: no masses palpable and [...] Paramjit Robertson M.D., F.A.C.S. documented in this encounterPremier Health01-27-2025 NoteHNO ID: [id number] Author: CAREY REYES MD Service: ? Author Type: Physician Type: Progress Notes Filed: 06/17/2024 11:47 Note Text: Agueda Lewis is a 29 year old female who presented for leader writer ultrasound today. Encounter Diagnosis ICD-10-CM 1. Irregular menstrual cycle N92.6 Please see report under imaging tab. Carey Reyes MD June 17, 2024 11:45 [facility]01-27-2025 History of Present illness Narrative* Carey Reyes MD - 06/17/2024 11:45 AM EST Agueda Lewis is a 29 year old female who presented for leader writer ultrasound today. Encounter Diagnosis ICD-10-CM 1. Irregular menstrual cycle N92.6 Please see report under imaging tab. Carey Reyes MD June 17, 2024 11:45 AM documented in this encounterPremier Health01-13-2025 NoteHNO ID: [id number] Author: ЕЛЕНА KIM APRN.CNP Service: ? Author Type: Nurse Practitioner Type: Progress Notes Filed: 06/03/2024 15:22 Note Text: Patient declined belt builder. fatuma is a 29 year old who [...] L2 SAB0 IAB0 Ectopic0 Multiple0 Live Births2 It Sales Consultant History LMP: 04/24/2024 (Exact Date), Having periods Age at Menarche: Age at First : Age at Menopause: It Sales Consultant History Comments: Sexual Activity: Yes; Male Contraception: [...] status: current everyday user Substances: Flavoring Devices: RefSpotlight Innovationble tank Substance Use Topics Alcohol use: No [...] discussed with the Patient or Patient's Authorized Animal Surgeon. As applicable, any other physician, advance practice provider, medical student, or other health professional student that will be observing or involved in the sensitive examination for educational or training purposes was discussed with the Patient or Authorized Animal Surgeon. The Patient or Authorized Animal Surgeon has agreed to proceed with the sensitive [...] external genitalia normal, normal Bartholin's glands, urethra, [place]'s glands, no vulvar lesions, no cervical lesions, [...] notify patient of test results. Елена Kim APRN.[facility]01-13-2025 History of Present illness Narrative* Елена Kim APRN.CHRISTINE - 06/03/2024 2:22 PM EST Patient declined belt builder. fatuma is a 29 year old who presents for an annual gynecologic exam with complaints, heavy and irregular bleeding, attempting x1 year. Age at Menarche: 10 Still get period: Yes LMP: 04/24/2024 flow lasting 4-5 with heavy flow in the middle Menses: cycles irregular x1 years. Typically every 28 days, but now she will have 2 a month or skipa month Bleeding amount bothersome: No Bleeding between [...] L2 SAB0 IAB0 Ectopic0 Multiple0 Live Births2 It Sales Consultant History LMP: 04/24/2024 (Exact Date), Having periods Age at Menarche: Age at First : Age at Menopause: It Sales Consultant History Comments: Sexual Activity: Yes; Male Contraception: [...] status: current everyday user Substances: Flavoring Devices: EzLike Substance Use Topics Alcohol use: No Drug [...] discussed with the Patient or Patient's Authorized Animal Surgeon. As applicable, any other physician, advance practice provider, medical student, or other health professional student that will be observing or involved in the sensitive examination for educational or training purposes was discussed with the Patient or Authorized Animal Surgeon. The Patient or Authorized Animal Surgeon has agreed to proceed with the sensitive [...] external genitalia normal, normal Bartholin's glands, urethra, [place]'s glands, no vulvar lesions, no cervical lesions, [...] notify patient of test results. Елена Kim APRN.CNP documented in this encounterPremier Health12-05-2024 Telephone encounter Note * Telephone Encounter - Christine Lemon LPN - 04/25/2024 9:08 AM EST I spoke to Agueda Lewis and informed them of 's response to Echo results and recommendations. Patient voiced understanding. Christine Lemon LPN [facility]12-05-2024 Miscellaneous Notes* Telephone Encounter - Christine Lemon LPN - 04/25/2024 9:08 AM EST I spoke to Agueda Lewis and informed them of 's response to Echo results and recommendations. Patient voiced understanding. Christine Lemon LPN * Telephone Encounter - Christine Lemon LPN - 04/25/2024 7:04 AM EST ----- Message from Orestes Heath MD sent at 04/24/2024 9:35 PM EST ----- Normal left ventricular size, with mild left ventricular hypertrophy. The LV ejection fraction is 69%. Normal diastolic function. Normal right ventricular size, systolic function, without significantvalvular abnormalities. No significant suggestion of hypertrophic obstructive cardiomyopathy on this echo. documented in this encounterPremier Health12-05-2024 Telephone encounter Note * Telephone Encounter - Christine Lemon LPN - 04/25/2024 7:04 AM EST ----- Message from Orestes Heath MD sent at 04/24/2024 9:35 PM EST ----- Normal left ventricular size, with mild left ventricular hypertrophy. The LV ejection fraction is 69%. Normal diastolic function. Normal right ventricular size, systolic function, without significantvalvular abnormalities. No significant suggestion of hypertrophic obstructive cardiomyopathy on this echo. [facility]11-12-2024 History of Present illness Narrative* Zoe Cote - 04/02/2024 12:15 PM EST Chart reviewed of ED follow up Seen in [facility] ED on 03/29/2024 Reason: Abdominal pain-gallstones Discharge instructions: Follow-up with surgery. Patient has appointment scheduled with General Surgery on 04/11/24. MinuteKeyt message sent. documented in this [facility]11-11-2024 Telephone encounter Note* Telephone Encounter - Zena Rosario - 04/01/2024 8:32 AM EST Spoke with patient and she is scheduled. [facility] [id number] Miscellaneous Notes* Telephone Encounter - Zena Rosario - 04/01/2024 8:32 AM EST Spoke with patient and she is scheduled. DP * Telephone Encounter - Tayla Zarate LPN - 04/01/2024 7:46 AM EST Please contact patient to schedule. * Telephone Encounter - Rubi Kang RN - 03/29/2024 8:48 PM EST ED provider requesting appointment for patient to see a surgeon for biliary colic. ED provider advised that a message would be sent to management and that they will reach out to the patient on Mondayto assist with scheduling. documented in this [facility]11-11-2024 Telephone encounter Note* Telephone Encounter - Tayla Zarate LPN - 04/01/2024 7:46 AM EST Please contact patient to schedule. [place] [id number] Telephone encounter Note* Telephone Encounter - Rubi Kang RN - 03/29/2024 8:48 PM EST ED provider requesting appointment for patient to see a surgeon for biliary colic. ED provider advised that a message would be sent to management and that they will reach out to the patient on Mondayto assist with scheduling. [place] [id number] Hospital Discharge instructions* Discharge Instructions* Vince Hope MD - 03/29/2024 8:43 PM EST Please continue to take ibuprofen as needed for your pain. If your symptoms return or persistent please come back to the ER for repeat evaluation. The scheduling service will be reaching out to you to follow-up with surgery. * Attachments The following attachments cannot be sent through Care Everywhere. * Gallstones (Angolan) * Trichomoniasis Discharge Instructions (Angolan) documented in this encounterSMercy Health St. [facility]'s Medical [id number] Emergency department Note* Steffany Lozano RN - 03/29/2024 7:24 PM EST Attempted PIV x2; unsuccessful. Will notify oncoming RN. [place] [id number] Emergency department Note* Steffany Lozano RN - 03/29/2024 7:24 PM EST Attempted PIV x2; unsuccessful. Will notify oncoming RN. * LATISHA Blevins - 03/29/2024 6:40 PM EST Patient states that she has had RUQ pain intermittently for the past couple weeks. States that she has hx of gallstones. Denies abdominal surgical hx. Endorses nausea w/out vomiting. documented in this [facility]11-08-2024 Emergency department Triage note* LATISHA Blevins - 03/29/2024 6:40 PM EST Patient states that she has had RUQ pain intermittently for the past couple weeks. States that she has hx of gallstones. Denies abdominal surgical hx. Endorses nausea w/out vomiting. [facility] [id number] Telephone encounter Note* Telephone Encounter - Janeen John - 02/27/2024 8:40 AM EDT Mychart sent to call and rescheduling testing needing for clearance prior to proceeding with surgery Janeen John Tree Climber [facility]10-08-2024 Miscellaneous Notes* Telephone Encounter - Janeen John - 02/27/2024 8:40 AM EDT Mychart sent to call and rescheduling testing needing for clearance prior to proceeding with surgery Janeen John Tree Climber * Telephone Encounter - Janeen John - 02/27/2024 8:31 AM EDT Patient had no showed her echo stress test yesterday 02/26/2024 Patient is aware she is not able to proceed with scheduling surgery until test has been completed and she has been cleared Janeen John Tree Climber ' * Telephone Encounter - Janeen John - 01/16/2024 3:[address] Jasso's office note The patient wishes to proceed with surgery but I told her to schedule for stress ECHO prior to consideration for surgery Patient acknowledges above. Patient to complete 02/26/2024 ECHO test prior to discussing dates for gall bladder surgery Janeen John Tree Climber documented in this encounterPremier Health10-08-2024 Telephone encounter Note * Telephone Encounter - Janeen John - 02/27/2024 8:31 AM EDT Patient had no showed her echo stress test yesterday 02/26/2024 Patient is aware she is not able to proceed with scheduling surgery until test has been completed and she has been cleared Janeen John Tree Climber ' [facility]09-27-2024 NoteChart reviewed of ED follow up [facility] 02/14/24 Reason: Abdominal pain Discharge instructions: Patient left AMA ED message and education sent via [facility] [facility]BGR[facility]-27-2528 Telephone encounter Note* Telephone Encounter - Janeen John - 01/16/2024 3:[address] Jasso's office note The patient wishes to proceed with surgery but I told her to schedule for stress ECHO prior to consideration for surgery Patient acknowledges above. Patient to complete 02/26/2024 ECHO test prior to discussing dates for gall bladder surgery Janeen John Tree Climber [facility]08-09-2024 Nurse Note* Fidelina Downing RN - 12/29/2023 11:31 AM EDT REVIEW OF SYSTEMS: General: The patient NOTES [...] psychiatric medications, NOTES depression, and denies voices, deniessubstance abuse. Endocrine: The patient denies thyroid disorders, [...] N/A Last Colonoscopy: None Fidelina Downing RN [facility]08-09-2024 Nurse Note* Fidelina Downing RN - 12/29/2023 11:31 AM EDT REVIEW OF SYSTEMS: General: The patient NOTES [...] psychiatric medications, NOTES depression, and denies voices, deniessubstance abuse. Endocrine: The patient denies thyroid disorders, [...] None Fidelina Downing RN documented in this encounterPremier Health08-09-2024 NoteHNO ID: [id number] Author: MARY JASSO MD Service: ? Author [...] had been seen by a surgeon at [facility] who recommended cardiology consultation The patient does complain of occasional chest pain. She was seen by a press machine operator who recommended stress echocardiogram prior to any surgery. Patient did not follow through with this PAST MEDICAL HISTORY 07/15/2014: Chlamydia infection No date: Cholelithiasis 12/18/2003: [facility] - PAST MEDICAL HISTORY OF Comment: normal color vision age 4: [facility] - PAST MEDICAL HISTORY OF Comment: fracture right elbow age 4: [facility] - PAST MEDICAL HISTORY OF Comment: fracture right wrist No date: [facility] - PAST MEDICAL HISTORY OF Comment: bronchial [...] Use: current everyday user Substances: Flavoring Devices: TTA Marineble tank Substance Use Topics Alcohol use: No [...] Colonoscopy: None Fidelina Arc (more content not included)...[facility]08-09-[facility]24 History of Present illness Narrative* Mary Jasso MD - 12/29/2023 10:26 AM EDT HISTORY AND PHYSICAL Agueda Lewis 1995 REFERRING [...] had been seen by a surgeon at [facility] who recommended cardiology consultation The patient does complain of occasional chest pain. She was seen by a press machine operator who recommended stress echocardiogram prior to any surgery. Patient did not follow through with this PAST MEDICAL HISTORY 07/15/2014: Chlamydia infection No date: Cholelithiasis 12/18/2003: [facility] - PAST MEDICAL HISTORY OF Comment: normal color vision age 4: [facility] - PAST MEDICAL HISTORY OF Comment: fracture right elbow age 4: [facility] - PAST MEDICAL HISTORY OF Comment: fracture right wrist No date: [facility] - PAST MEDICAL HISTORY OF Comment: bronchial [...] 2 Puffs as instructed every 4 hours asneeded for wheezing/shortness of breath. No current facility-administered medications for this visit. ALLERGIES: Patient has no known allergies. PERSONAL HISTORY: Social History Tobacco Use Smoking status: Never Smokeless tobacco: Never Tobacco comments: vapes without nicotine Vaping Use Vaping Use: current everyday user Substances: Flavoring Devices: RefSpotlight Innovationble tank Substance Use Topics Alcohol use: No Drug use: No FAMILY HISTORY Problem Relation Age of Onset Diabetes Maternal Grandmother other (sleep apnea) Maternal Grandmother Asthma Father Heart Mother hypertrophic cardiomyopathy The review of systems data was entered by the nurse and reviewed by il Nursing Notes: Fidelina Downing RN 12/29/2023 11:33 [...] psychiatric medications, NOTES depression, and denies voices, deniessubstance abuse. Endocrine: The patient denies thyroid disorders, [...] nourished, well hydrated in no acute distress. Thepatient is oriented to time, place, and person. VITALS: Blood pressure 108/66, pulse 117, temperature 36.1 C (96.9 F), height 180.3 cm (5' 11), weight 121.5 kg (267 lb 12.8 oz), last menstrual period 11/25/2020, SpO2 98%. Body mass index is 37.35kg/m . Head: Normal cephalic, atraumatic Eyes: pupils are equally round, sclera are clear/anicteric Neck is supple with no tracheal deviation Cardiac: normal heart sounds, regular Respiratory: Normal respiratory excursion and pattern. Abdominal exam: benign Extremities: no clubbing, cyanosis or edema. Neuro: non focal Psych: normal mood Assessment IMPRESSION: cholelithiasis, press machine operator recommended stress ECHO prior to surgery PLAN: [...] records from other medical facilities such as [facility], [id number] patient care, obtaining oral medical history from the patient in this encounter, performing a medically appropriate examination, counseling and educating the patient/family/caregiver, and ordering and/or scheduling of medications/tests/procedures, and completing appropriate medical documentation. Mary Jasso MD documented in this encounterPremier Health04-03-2024 Hospital Discharge instructions Patient Education 08/23/2023 21:52:23 [...] the time advised by your healthcare provider. Ifyou aren t sure how long to wear [...] talk with your healthcare provider before using thesemedicines. Also talk with your provider if you [...] broken bones, breaks, or fractures. Sometimes fractures dont show up on the first X-ray. Bruises [...] shoulder or upper arm Fever or chills [phone] The [employer]. [address] [place] [address], [place] [address]. All rights reserved. This information is not intended as a substitute for professional medical care. Always follow yourhealthcare professional's instructions. Follow Up Care 08/23/2023 21:23:12 With:BOB AMADOR DO Address: [address] [place] [address] [place] [phone] When:2-4 days [facility] 04-03-2024 Note Discharge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 Date abd pain November 29, 2024 12:0 5am Chief Complaint Admit Date abd pain November 29, 2024 12:0 5am abd pain December 16, 2024 11:5 6am Additional Source Comments INFORMATION SOURCE (unrecogn ized section and content) DATE CREATED AUTHOR 11/13/2017 [facility] DATE CREATED AUTHOR AUTHOR'S ORGANIZ ATION 11/14/2017 [facility] DATE CREATED AUTHOR AUTHOR'S ORGANIZ ATION 12/09/2019 [facility] DATE CREATED AUTHOR AUTHOR'S ORGANIZ ATION 11/05/2020 [facility] DATE CREATED AUTHOR AUTHOR'S ORGANIZ ATION 02/16/2021 [facility] DATE CREATED AUTHOR AUTHOR'S ORGANIZ ATION 09/06/2023 [facility] DATE CREATED AUTHOR AUTHOR'S ORGANIZ ATION 04/04/2024 [facility] DATE CREATED AUTHOR AUTHOR'S ORGANIZ ATION 10/17/2024 [facility] DATE CREATED AUTHOR AUTHOR'S ORGANIZ ATION 12/17/2024 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 OP AND HEART MURMUR [...] Cardiac Clearance Reason Comments Surgery Cancelled Re: Lap Malissa 025 Reason Comments Pain Right side and rib p ain, pt has gallstones x 4 days Source Comments (unrecognize d section and content) In the event this informatio n is protected by the Federal Confidentiality of Alcohol and Drug Abuse Patient Records regulations: The Federal rules restrict any use of the information to criminally investigate or prosecute any alcohol or drug abuse patient.[facility] HealthIn the event this information is protected by the Federal Confidentiality of Alcohol and Drug Abuse Patient Records regulations: The Federal rules restrict any use of the information to criminally investigate or prosecute any alcohol or drug abuse patient.[facility] HealthIn the event this information is protected by the Federal Confidentiality of Alcohol and Drug Abuse Patient Records regulations: The Federal rules restrict any use of the information to criminally investigate or prosecute any alcohol or drug abuse patient.[facility] HealthIn the event this information is protected by the Federal Confidentiality of Alcohol and Drug Abuse Patient Records regulations: The Federal rules restrict any use of the information to criminally investigate or prosecute any alcohol or drug abuse patient.[facility] HealthIn the event this information is protected by the Federal Confidentiality of Alcohol and Drug Abuse Patient Records regulations: The Federal rules restrict any use of the information to criminally investigate or prosecute any alcohol or drug abuse patient.[facility] HealthIn the event this information is protected by the Federal Confidentiality of Alcohol and Drug Abuse Patient Records regulations: The Federal rules restrict any use of the information to criminally investigate or prosecute any alcohol or drug abuse patient.[facility] HealthIn the event this information is protected by the Federal Confidentiality of Alcohol and Drug Abuse Patient Records regulations: The Federal rules restrict any use of the information to criminally investigate or prosecute any alcohol or drug abuse patient.[facility] HealthIn the event this information is protected by the Federal Confidentiality of Alcohol and Drug Abuse Patient Records regulations: The Federal rules restrict any use of the information to criminally investigate or prosecute any alcohol or drug abuse patient.[facility] HealthIn the event this information is protected by the Federal Confidentiality of Alcohol and Drug Abuse Patient Records regulations: The Federal rules restrict any use of the information to criminally investigate or prosecute any alcohol or drug abuse patient.[facility] HealthIn the event this information is protected by the Federal Confidentiality of Alcohol and Drug Abuse Patient Records regulations: The Federal rules restrict any use of the information to criminally investigate or prosecute any alcohol or drug abuse patient.[facility] HealthIn the event this information is protected by the Federal Confidentiality of Alcohol and Drug Abuse Patient Records regulations: The Federal rules restrict any use of the information to criminally investigate or prosecute any alcohol or drug abuse patient.[facility] HealthIn the event this information is protected by the Federal Confidentiality of Alcohol and Drug Abuse Patient Records regulations: The Federal rules restrict any use of the information to criminally investigate or prosecute any alcohol or drug abuse patient.[facility] HealthIn the event this information is protected by the Federal Confidentiality of Alcohol and Drug Abuse Patient Records regulations: The Federal rules restrict any use of the information to criminally investigate or prosecute any alcohol or drug abuse patient.[facility] HealthIn the event this information is protected by the Federal Confidentiality of Alcohol and Drug Abuse Patient Records regulations: The Federal rules restrict any use of the information to criminally investigate or prosecute any alcohol or drug abuse patient.[facility] HealthIn the event this information is protected by the Federal Confidentiality of Alcohol and Drug Abuse Patient Records regulations: The Federal rules restrict any use of the information to criminally investigate or prosecute any alcohol or drug abuse patient.[facility] HealthIn the event this information is protected by the Federal Confidentiality of Alcohol and Drug Abuse Patient Records regulations: The Federal rules restrict any use of the information to criminally investigate or prosecute any alcohol or drug abuse patient.[facility] HealthIn the event this information is protected by the Federal Confidentiality of Alcohol and Drug Abuse Patient Records regulations: The Federal rules restrict any use of the information to criminally investigate or prosecute any alcohol or drug abuse patient.[facility] HealthIn the event this information is protected by the Federal Confidentiality of Alcohol and Drug Abuse Patient Records regulations: The Federal rules restrict any use of the information to criminally investigate or prosecute any alcohol or drug abuse patient.[facility] HealthIn the event this information is protected by the Federal Confidentiality of Alcohol and Drug Abuse Patient Records regulations: The Federal rules restrict any use of the information to criminally investigate or prosecute any alcohol or drug abuse patient.[facility] Care Teams (unrecognized sec tion and content) Academic Success Coordinator Relationship Specialty Start Date End Date Zulema Sorto DO [address] [facility] [address] [place] [id number] PCP - General Family Medicine 03/27/23 Academic Success Coordinator Relationship Specialty Start Date End Date Zulema Dunlap DO [address] [facility] [address] [place] [address] PCP - General Family Medicine 03/27/23 Academic Success Coordinator Relationship Specialty Start Date End Date Zulema Dunlap DO [address] [facility] [address] [place] [address] PCP - General Family Medicine 03/27/23 Academic Success Coordinator Relationship Specialty Start Date End Date Quintin oMntiel DO [address] [place] [address] PCP - General Family Medicine 05/12/23 Academic Success Coordinator Relationship Specialty Start Date End Date Quintin Mnotiel DO [address] [place] [address] PCP - General Family Medicine 05/12/23 Academic Success Coordinator Relationship Specialty Start Date End Date Quintin Montiel DO [address] [place] [address] PCP - General Family Medicine 05/12/23 Academic Success Coordinator Relationship Specialty Start Date End Date Quintin Montiel DO [address] [place] [address] PCP - General Family Medicine 05/12/23 Academic Success Coordinator Relationship Specialty Start Date End Date Zulema Dunlap DO [address] [facility] [address] [place] [address] PCP - General Family Medicine 03/27/23 Academic Success Coordinator Relationship Specialty Start Date End Date Zulema Dunlap DO [address] [facility] [address] [place] [address] PCP - General Family Medicine 03/27/23 Academic Success Coordinator Relationship Specialty Start Date End Date Zulema Dunlap DO [address] [place] [address] PCP - General Family Medicine 03/27/23 Academic Success Coordinator Relationship Specialty Start Date End Date Dinesh DO Quintin [address] [place] [address] PCP - General Family Medicine 05/12/23 Academic Success Coordinator Relationship Specialty Start Date End Date EdiDarrel mirandaDO sarah [address] [place] [address] PCP - General Family Medicine 05/12/23 Academic Success Coordinator Relationship Specialty Start Date End Date Quintin Montiel DO [address] [place] [address] PCP - General Family Medicine 05/12/23 Academic Success Coordinator Relationship Specialty Start Date End Date Nikki Zulema [address] [place] [address] PCP - General Family Medicine 03/27/23 Academic Success Coordinator Relationship Specialty Start Date End Date Dinesh DO Quintin [address] [facility] [address] [place] [address] PCP - General Family Medicine 05/12/23 Academic Success Coordinator Relationship Specialty Start Date End Date Dinesh DO Quintin [address] [facility] [address] [place] [address] PCP - General Family Medicine 05/12/23 Academic Success Coordinator Relationship Specialty Start Date End Date Ediarlene DO Quintin [address] [place] [address] PCP - General Family Medicine 08/20/24 Orestes Heath MD [address] [place] [phone] Cardiology 08/20/24 Academic Success Coordinator Relationship Specialty Start Date End Date Darrel Montielsarah [address] [place] [address] PCP - General Family Medicine 08/20/24 Orestes Heath MD [address] [place] [address] Cardiology 08/20/24 Academic Success Coordinator Relationship Specialty Start Date End Date Quintin Montiel DO [address] [place] [address] PCP - General Family Medicine 08/20/24 Orestes Heath MD [address] [place] [address] Cardiology 08/20/24 Academic Success Coordinator Relationship Specialty Start Date End Date Quintin Montiel DO [address] [place] [address] PCP - General Family Medicine 08/20/24 Orestes Heath MD [address] [place] [phone] Cardiology 08/20/24 Team Status: Active Member Role/Relationship Status Dates No Primary Care Physician Primary Care Provider Active Team Status: Inactive Member Role/Relationship Status Dates No Primary Care Physician Primary Care Provider Active Start: November 29, 2024 End: November 29, 2024 Dr. Shailesh Merritt DO Emergency Provider Active Start: November 29, 2024 End: November 29, 2024 Team Status: Inactive Member Role/Relationship Status Dates No Primary Care Physician Primary Care Provider Active Start: November 29, 2024 End: November 29, 2024 Dr. Shailesh Merritt DO Attending Provider Active Start: November 29, 2024 End: November 29, 2024 Dr. Shailesh Merritt DO Emergency Provider Active Start: November 29, 2024 End: November 29, 2024 Team Status: Inactive Member Role/Relationship Status Dates No Primary Care Physician Primary Care Provider Active Start: December 16, 2024 End: December 16, 2024 Dr. Alison Dodson , DO Emergency Provider Active Start: December 16, 2024 End: December 16, 2024 Academic Success Coordinator Relationship Specialty Start Date End Date Orestes Heath MD [address] [place] [address] Cardiology 08/20/24 Scheduled Active and Recently Administ [...] (Given - Provid er: Zeina Cooper RN) Goals (unrecognized section and content) Goals may be documented in a n alternate section FOR RECORDS PERTAINING TO PATIENTS WHO ARE [...] BE BASED ON THE PRIMARY CLINICAL RECORDS. [employer] provides no warranty or guarantee of the accuracy or completeness of information in this document.
[2024-12-31] MEDS: Ketorolac 30 MG/ML Syringe IV (23:02)
[2024-12-31 23:11] LABS: Hematocrit 38.2 % (37-47); Hemoglobin 12.2 g/dL (12.0-15.0); Immature Granulocytes Count 0.020 X10^3/uL (0.0-0.0); Mean Corp Hgb Conc 31.9 g/dL (32-36); Mean Corpuscular Volume 80.1 fL (81-99); Mean Platelet Vol. 10.7 fl (6.2-12.0); NRBC Flagged by Analyzer 0 % (0-5); Platelet Count 328 K/mm3 (150-450); RBC Distribution Width CV 14.0 % (11.6-14.6); RBC Distribution Width SD 41.0 fl (35.1-43.9); Red Blood Count 4.77 M/mm3 (4.2-5.4); White Blood Count 8.3 K/mm3 (4.4-11.0)
[2024-12-31 23:29] LABS: AST(SGOT) 23 U/L (<=31); Alanine Aminotransfer ALT/SGPT 18 U/L (<=34); Albumin, Serum 4.1 g/dL (3.5-5.0); Alkaline Phosphatase 79 U/L (35-104); Anion Gap 14 (5-15); BUN 10 mg/dL (4-19); BUN/Creat Ratio 9.1 RATIO (10-20); Calcium,Total 9.2 mg/dL (7.6-11.0); Carbon Dioxide 20.5 mmol/L (21.0-32.0); Chloride 104 mmol/L (98-108); Estimated Creatinine Clearance 106.70 ml/min (50-250); Globulin 3.4 g/dL (2.2-4.2); Glucose 98 mg/dL (70-99); Lipase 36 U/L (13-75); Potassium 3.7 mmol/L (3.3-5.1)
[2025-01-01 00:02] VITALS: BP 115/78; PULSE 81; RESP 17; TEMP 36.4; O2SAT 98
[2025-01-01 00:05] LABS: Internal QC Validated? YES +Cl - CLEAR BKGD; Pregnancy, Serum, hCG Quali. NEGATIVE Negative; Record Kit Lot#, Serum Preg. 0000947241
== END 2025-01-01 00:02 | disposition home or self-care (01) ==
PROVIDERS: Emergency Provider Emergency Medicine; Visit Provider Emergency Medicine
DX: K80.70 Calculus of gallbladder and bile duct without cholecystitis without obstruction (principal); F17.290 Nicotine dependence, other tobacco product, uncomplicated
CPT/HCPCS: 76705; 80053; 83690; 84703; 85025; 96374; 96375; 99283; A4216; J2405

== ENCOUNTER 2025-02-08 17:19 | Emergency (ER) | payer MEDICAID, SELFPAY ==
[2025-02-08 17:20] VITALS: BP 124/86; PULSE 76; RESP 16; TEMP 36.8; O2SAT 96; BMI 33.7
[2025-02-08] MEDS: 0.9% Normal Saline (1000mL) 1,000 ML 999 ML IV (18:00)
--- OUTSIDE RECORDS SUMMARY | 2025-02-08 18:00 | XMS RPT_ITS | CCD ---
Author Organization [facility] Care Team Providers Care Sound Designer Name Role Phone Agustin Villa Unavailable Unavailable Unavailable, Family Physician Unavailable Un [...] Unavailable MICHELE REYNOLDS Attending Unavailable MICHELE REYNOLDS C Primary Care Unavailable NO, DOCTOR ON Consulting Unavailable NO, DOCTOR ON Referring Unavailable Unavailable Primary Care Provider Unavailabl e Unavailable Primary Care Provider Unavailabl e Unavailable Primary Care Provider Unavailabl Zulema Sawyer DO Primary Care Provider Unavailable Primary Care Provider Unavailabl Zulema Rubalcava DO Primary Care Provider [phone] Quintin Montiel DO Primary Care Provider PHYSICIAN, NONE Primary Care Physician Unavailab DR JOAQUÍN Garcia DO Attending Unavailable PHYSICIAN, NONE Primary Care Unavailable Dinesh SCHMITZ Quintin Primary Care Provider ZULEMA DUNLAP Primary Care Unavailable VINCE HOPE Attending Unavailable Unavailable Primary Care Provider Unavailabl e Khalid DO, Quintin Primary Care Provider [phone] Ivana FRAGOSO, Orestes Vega Unavailable [phone] BUDDY HOPKINS Attending Unavailable KHALID, QUINTIN Primary [...] Referring Unavailable KHALID, QUINTIN Primary Care Unavailable ЕЛЕНА KIM Attending Unavailable KHALID, QUINTIN Primary Care Unavailable Dr. Alison Dodson DO Attending Provider [phone] Jay Isaac MD Emergency Provider Care Physician, No Primary Primary Care Unava ilable Alison Dodson Attending Unavailable Jay Isaac Attending Unavailable Care Physician, No Primary Primary Care Unava ilable Care Physician, No Primary Primary Care Unava ilable Shailesh Merritt Attending Unavailable Care Physician, No Primary Primary Care Unava ilable Care Physician, No Primary Referring Unava ilable Ion Easley Attending Unavailable Care Physician, No Primary Referring Unava ilable Care Physician, No Primary Primary Care Unava ilable Vince Flores Attending Unavailable Medications Current Medications Medication Drug Class(es) Dates Sig (Normalized) Sig (Original) acetaminophen 325 mg / oxyCODONE hydrochloride 5 mg oral tablet (6 sources) Opioid Agonist Start: 11-29-2024 take 1 [...] Ordered dicyclomine hydrochloride 20 mg oral tablet (2 sources) Anticholinergic Start: 12-16-2024 take 2 tablets by mouth three times daily as needed for pain Dicyclomine 20 mg tablet Active 40 mg PO THREE TIMES A DAY as needed for abdominal pain 20 0 December 16, 2024 4:42pm ferrous sulfate 325 [...] Ordered ondansetron 4 mg disintegrating oral tablet (20 sources) Serotonin-3 Receptor Antagonist Start: 11-29-2024 take [...] as needed for nausea and vomiting November 27, 2023 5:42am December 12, 2023 [...] 8 HOURS NEEDED as needed for Nausea November 03, 2023 3:19pm November 27, 2023 [...] / HYDROcodone bitartrate 5 mg oral tablet (3 sources) Opioid Agonist Start: 11-03-2023 End: 11-27-2023 Hydrocodone-Aceta minophen 5-325 mg tablet Discontinued 1 {tbl} PO EVERY 6 HOURS NEEDED as needed for Pain 10 3 0 November 03, 2023 November 27, 2023 4:22am Right upper quadrant abdominal pain Right upper quadrant pain [id number] actuat albuterol 0.09 mg/actuat metered dose [...] 04/05/2024 Active naproxen 500 mg oral tablet (6 sources) Nonsteroidal Anti-inflammatory Drug Start: 08-11-2017 End: 11-27-2023 take 1 tablet by mouth twice daily Naproxen 500 MG tablet Discontinued 500 mg PO TWICE A DAY 14 January 05, 2019 12:00am November 27, 2023 4:22am pantoprazole 20 mg delayed release oral tablet (10 sources) Proton Pump Inhibitor Start: 12-01-2023 End: [...] Active Problems Problem Classification Problem Date Documented Da te Episodic/Chronic Abdominal pain (20 sources) Epigastric pain; [...] I will begin PPI therapy. Anxiety disorders (2 sources) Mixed anxiety and depressive disorder; Translations: [Anxiety [...] human papillomavirus (HPV)] 06-03-2024 Episodic Intracranial injury (3 sources) Concussion injury of body structure; Translations: [Concussion] 08-13-2017 Episodic Menstrual disorders (16 sources) Missed period; Translations: [Irregular menstruation, unspecified] Onset: 03-28-2023 03-27-2023 Chronic Nausea and vomiting (17 sources) Nausea and vomiting; Translations: [Nausea with vomiting, unspecified] Onset: 03-28-2023 03-27-2023 Episodic Nonspecific chest pain (20 sources) Chest pain; Translations: [Chest pain, unspecified] Onset: 08-14-2023 08-14-2023 Episodic Other connective tissue disease (1 source) Other muscle spasm; Translations: [Other muscle spasm] Onset: 11-05-2019 Episodic Other gastrointestinal disorders (1 source) H/O: gallstones; Translations: [Personal history of other diseases of the digestive system] 12-31-2024 Episodic Other infections; including parasitic (2 sources) [...] [Nicotine dependence] Onset: 11-13-2019 03-25-2023 Chronic Syncope (3 sources) Near syncope; Translations: [Syncope and collapse] [...] to shoulder dystocia] Onset: 03-07-2017 03-25-2023 Episodic Other complications of (16 sources) Insufficient [...] Test Name Value Interpretation Reference Range Facility ,Serum,hCG Quali.on 01-01-2025 HCG, SERUM QUAL Negative Normal [facility] Comment on above: Performed By: #### L 700.6800 ####[facility] [address] [place], [address] Absolute lymphocyte countOrd ered By: Jay Isaac on 12-31-2024 Lymphocytes Auto (Unsp spec) [#/Vol] 3.22 10*3/uL 0.83-4.51 [facility] Absolute neutrophil countOrd ered By: Jay Isaac on 12-31-2024 Neutrophils (Bld) [#/Vol] 4.0 10*3/uL 2.0-7.7 [facility] Anion gap in Serum or Plasma Ordered By: Jay Isaac on 12-31-2024 Anion gap [Moles/Vol] 14 mmol/L 5-15 [facility] Automated lymphocyte count a s percentage of total leukocytesOrdered By: Jay Isaac on 12-31-2024 Lymphocytes/100 WBC Auto (Unsp spec) 38.6 % - [facility] BUN/creatinine ratioOrdered By: Jay Isaac on 12-31-2024 Urea nitrogen/Creatinine [Mass ratio] 9.1 mg/mg Low 10-20 [facility] Basophil percentageOrdered B y: Jay Isaac on 12-31-2024 Basophils/100 WBC (Bld) 1.0 % 0-1 [facility] Bilirubin, totalOrdered By: Jay Isaac on 12-31-2024 Bilirubin [Mass/Vol] 0.29 mg/dL 0.00-1.30 [facility] CBC W/Diff, Automatedon 12-20 Absolute Lymph 3.22 X10 3/uL Normal 0.83-4.51 [facility] Comment on above: Performed By: #### L 501.2450, L500.4050, L100.0100 ####[facility] [address] [place], [address] Absolute Neut 4.0 X10 3/uL Normal 2.0-7.7 [facility] Comment on above: Performed By: #### L 501.2450, L500.4050, L100.0100 ####[facility] [address] [place], [address] Basophils/100 WBC (Bld) 1.0 % Normal 0-1 [facility] Comment on above: Performed By: #### L 501.2450, L500.4050, L100.0100 ####[facility] [address] [place], [address] Eosinophils/100 WBC (Bld) 2.5 % Normal 0-5 [facility] Comment on above: Performed By: #### L 501.2450, L500.4050, L100.0100 ####[facility] [address] [place], [address] Erythrocyte distribution width (RBC) [Ratio] 14.0 % Normal 11.6-14.6 [facility] Comment on above: Performed By: #### L 501.2450, L500.4050, L100.0100 ####[facility] [address] [place], [address] Hematocrit (Bld) [Volume fraction] 38.2 % Normal 37-47 [facility] Comment on above: Performed By: #### L 501.2450, L500.4050, L100.0100 ####[facility] [address] [place], [address] Hemoglobin (Bld) [Mass/Vol] 12.2 g/dL Normal 12.0-15.0 [facility] Comment on above: Performed By: #### L 501.2450, L500.4050, L100.0100 ####[facility] [address] [place], [address] IG% 0.200 Normal 0.0-0.9 [facility] Comment on above: Result Comment: IG% - Immature Granulocytes (promyelocytes, myelocytes and metamyelocytes) > 1% indicates that a LEFT SHIFT is Present. Performed By: #### L 501.2450, L500.4050, L100.0100 ####[facility] [address] [place], [address] Lymphocytes/100 WBC (Bld) 38.6 % Normal 19-41 [facility] Comment on above: Performed By: #### L 501.2450, L500.4050, L100.0100 ####[facility] [address] [place], [address] MCH (RBC) [Entitic mass] 25.6 pg Low 27.0-32.0 [facility] Comment on above: Performed By: #### L 501.2450, L500.4050, L100.0100 ####[facility] [address] [place], [address] MCHC (RBC) [Mass/Vol] 31.9 g/dL Low 32-36 [facility] Comment on above: Performed By: #### L 501.2450, L500.4050, L100.0100 ####[facility] [address] [place], [address] MCV (RBC) [Entitic vol] 80.1 fL Low 81-99 [facility] Comment on above: Performed By: #### L 501.2450, L500.4050, L100.0100 ####[facility] [address] [place], [address] Monocytes/100 WBC (Bld) 9.4 % Normal 0-10 [facility] Comment on above: Performed By: #### L 501.2450, L500.4050, L100.0100 ####[facility] [address] [place], [address] Neutrophils/100 WBC (Bld) 48.3 % Normal 47-70 [facility] Comment on above: Performed By: #### L 501.2450, L500.4050, L100.0100 ####[facility] [address] [place], [address] Nucleated RBC (Bld) [#/Vol] 0 10*3/uL Normal 0-5 [facility] Comment on above: Performed By: #### L 501.2450, L500.4050, L100.0100 ####[facility] [address] [place], [address] Platelet mean volume (Bld) [Entitic vol] 10.7 fL Normal 6.2-12.0 [facility] Comment on above: Performed By: #### L 501.2450, L500.4050, L100.0100 ####[facility] [address] [place], [address] Platelets (Bld) [#/Vol] 328 10*3/uL Normal 150-450 [facility] Comment on above: Performed By: #### L 501.2450, L500.4050, L100.0100 ####[facility] [address] [place], [address] RBC (Bld) [#/Vol] 4.77 10*6/uL Normal 4.2-5.4 [facility] Comment on above: Performed By: #### L 501.2450, L500.4050, L100.0100 ####[facility] [address] [place], [address] RDW SD 41.0 fl Normal 35.1-43.9 [facility] Comment on above: Performed By: #### L 501.2450, L500.4050, L100.0100 ####[facility] [address] [place], [address] WBC (Bld) [#/Vol] 8.3 10*3/uL Normal 4.4-11.0 [facility] Comment on above: Performed By: #### L 501.2450, L500.4050, L100.0100 ####[facility] [address] [place], [address] Carbon dioxide, total [Moles /volume] in Central venous bloodOrdered By: Jay Isaac on 12-31-2024 CO2 [Moles/Vol] 20.5 mmol/L Low 21.0-32.0 [facility] Chloride assayOrdered By: Jerry Isaac on 12-31-2024 Chloride [Moles/Vol] 104 mmol/L 98-108 [facility] Comprehensive Metabolic Prof ilon 12-31-2024 Albumin [Mass/Vol] 4.1 g/dL Normal 3.5-5.0 [facility] Comment on above: Performed By: #### L 501.2450, L500.4050, L100.0100 ####[facility] [address] [place], [address] Albumin/Globulin [Mass ratio] 1.2 {ratio} Normal 0.9-2.4 [facility] Comment on above: Performed By: #### L 501.2450, L500.4050, L100.0100 ####[facility] [address] [place], [address] ALK PHOS 79 U/L Normal 35-104 [facility] Comment on above: Performed By: #### L 501.2450, L500.4050, L100.0100 ####[facility] [address] [place], [address] ALT [Catalytic activity/Vol] 18 U/L Normal <=34 [facility] Comment on above: Performed By: #### L 501.2450, L500.4050, L100.0100 ####[facility] [address] [place], [address] AST [Catalytic activity/Vol] 23 U/L Normal <=31 [facility] Comment on above: Performed By: #### L 501.2450, L500.4050, L100.0100 ####[facility] [address] [place], [address] Bilirubin [Mass/Vol] 0.29 mg/dL Normal 0.00-1.30 [facility] Comment on above: Performed By: #### L 501.2450, L500.4050, L100.0100 ####[facility] [address] [place], [address] BUN/CRE 9.1 RATIO Low 10-20 [facility] Comment on above: Performed By: #### L 501.2450, L500.4050, L100.0100 ####[facility] [address] [place], [address] Calcium [Mass/Vol] 9.2 mg/dL Normal 7.6-11.0 [facility] Comment on above: Performed By: #### L 501.2450, L500.4050, L100.0100 ####[facility] [address] [place], [address] Chloride [Moles/Vol] 104 mmol/L Normal 98-108 [facility] Comment on above: Performed By: #### L 501.2450, L500.4050, L100.0100 ####[facility] [address] [place], [address] CO2 [Moles/Vol] 20.5 mmol/L Low 21.0-32.0 [facility] Comment on above: Performed By: #### L 501.2450, L500.4050, L100.0100 ####[facility] [address] [place], [address] Creatinine [Mass/Vol] 1.10 mg/dL Normal 0.70-1.20 [facility] Comment on above: Performed By: #### L 501.2450, L500.4050, L100.0100 ####[facility] [address] [place], [address] ECRCL 106.70 ml/min Normal 50-250 [facility] Comment on above: Performed By: #### L 501.2450, L500.4050, L100.0100 ####[facility] [address] [place], [address] GAP 14 Normal 5-15 [facility] Comment on above: Performed By: #### L 501.2450, L500.4050, L100.0100 ####[facility] [address] [place], [address] GFR/1.73 sq M.predicted among non-blacks MDRD (S/P/Bld) [Vol rate/Area] 69 mL/min/{1.73_m2} Normal >60 [facility] Comment on above: Result Comment: mL/m in/1.73m2 CKD-EPI Creatinine Equation (2020) Performed By: #### L 501.2450, L500.4050, L100.0100 ####[facility] [address] [place], [address] Globulin (S) [Mass/Vol] 3.4 g/dL Normal 2.2-4.2 [facility] Comment on above: Performed By: #### L 501.2450, L500.4050, L100.0100 ####[facility] [address] [place], [address] Glucose [Mass/Vol] 98 mg/dL Normal 70-99 [facility] Comment on above: Performed By: #### L 501.2450, L500.4050, L100.0100 ####[facility] [address] [place], [address] Potassium [Moles/Vol] 3.7 mmol/L Normal 3.3-5.1 [facility] Comment on above: Performed By: #### L 501.2450, L500.4050, L100.0100 ####[facility] [address] [place], [address] Sodium [Moles/Vol] 138 mmol/L Normal 133-145 [facility] Comment on above: Performed By: #### L 501.2450, L500.4050, L100.0100 ####[facility] [address] [place], [address] T PROT 7.4 g/dL Normal 5.9-8.4 [facility] Comment on above: Performed By: #### L 501.2450, L500.4050, L100.0100 ####[facility] [address] [place], [address] Urea nitrogen [Mass/Vol] 10 mg/dL Normal 4-19 [facility] Comment on above: Performed By: #### L 501.2450, L500.4050, L100.0100 ####[facility] [address] [place], [address] Emergency Department Summary on 12-31-2024 Emergency Department Summary [facility] Medical Records Department [address] [place] [address] Emergency Department Summary 12/31/24 MR#: [id number] Acct: [id number] Name: AGUEDA LEWIS Rep #: [id number] : 1995 29 From: Jay Isaac MD PCP: Care Physician,No Primary Status:REG ER Location: ED HPI HPI - GI History of Present Illness Chief Complaint: Abd Pain Informant: patient Abdominal Pain/Flank Pain Onset: Today and Hours Context: Gradual Onset Timing: Intermittent Quality: Aching Location: RUQ Current Severity: Moderate Maximum Severity: Moderate Nausea/Vomiting/Emesis GI Symptom: Positive for Nausea Severity: Mild Diarrhea/Melena/Hematoche tano GI Symptom: Negative for Diarrhea, Melena or Hematochezia Associated Symptoms Associated Symptoms: Negative for Dysuria, Frequency, Hematuria or Urgency Narrative Narrative: 29-year-old female known history of gallstones and anemia. Has had diagnosis of gallstones about a year. She is intermittent episodes where she gets biliary colic. She was seen recently had CAT scan and ultrasound within the last several weeks. She has an appointment set up to see Dr. Jorge Easley at [facility] on January 08. States she is having right upper quadrant pain tonight. Associated nausea. No fever. No vomiting. No diarrhea. No dysuria. She has never had any abdominal surgeries. Prior similar symptoms: Yes Recent Illness/Hospitalization: No PFSH [facility] Medical History Gallstone Wears contact [...] / Time No Known Allergies Allergy Verified 12/31/24 22:38 Family History Grandmother Diabetes Mother Heart disease Surgical History H/O adenoidectomy Social History Smoking Status: Current every day smoker tobacco type: e-cigarettes ROS ROS ED ROS Narrative Abdominal pain. Nausea. Constitutional Constitutional ED: Denies chills or fever(s) ENT ENT ED: Denies ear pain Cardiovascular Cardiovascular: Denies chest pain Respiratory/Chest Respiratory/Chest: Denies cough or dyspnea Gastrointestinal Gastrointestinal: Reports abdominal pain and nausea; Denies constipation, diarrhea, melena or vomiting Genitourinary Genitourinary ED: Denies dysuria or hematuria Musculoskeletal Musculoskeletal: Denies arthralgias, back pain, myalgias or neck pain Integumentary Denies abscess, Abrasions or rash Neurologic Neurologic: Denies headache(s) Psychiatric Psychiatric: Denies anxiety Endocrine Endocrinology: Denies polydipsia Hematologic/Lymphatic Hematologic/Lymphatic: Denies easy bleeding, easy bruising or lymphadenopathy Allergic/Immunologic Allergic/Immunologic ED: Denies mouth swelling, tongue swelling or urticaria EXAM Physical Exam Narrative Exam Narrative: 29-year-old female sitting upright in bed no acute distress. Vital signs stable afebrile. Does not appear to be septic toxic. H EENT exam pupils round react light. Mytrex membranes. No facial droop. Normal speech. Neck nontender no lymphadenopathy. Lungs clear to auscultation bilaterally. Heart regular rhythm no murmur. Rate about 100. Chest wall ribs nontender. Abdomen soft nondistended normal bowel sounds without peritoneal signs. She does have mild right upper quadrant tenderness but not a Porter sign. Right lower quadrant unremarkable abdomen is nondistended. There is no hernia or mass. Back nontender. Neurologically she is awake and alert. Answering questions following commands. Equal symmetrical 5 out of 5 mica patcher strength. Dorsi plantarflexion intact. No focal motor deficits. Const Vital Signs: 12/31/24 22:35 12/31/24 22:38 Temperature 98.3 F 98.3 F Temperature Source Oral Oral Pulse Rate 101 H 101 H Respiratory Rate 16 16 Blood Pressure 115/83 H 115/83 H Blood Pressure Mean 93 93 Pulse Ox 98 98 Oxygen Delivery Method Room Air Positive well nouris (more content not included)... Normal [facility] Eosinophil percentageOrdered By: Jay Isaac on 12-31-2024 Eosinophils/100 WBC (Bld) 2.5 % 0-5 [facility] Erythrocyte distribution wid th ratioOrdered By: Jay Isaac on 12-31-2024 Erythrocyte distribution width (RBC) [Ratio] 14.0 % 11.6-14.6 [facility] Erythrocyte distribution wid th standard deviationOrdered By: Jay Isaac on 12-31-2024 Erythrocyte distribution width (RBC) [Ratio] 41.0 fl 35.1-43.9 [facility] Gallbladderon 12-31-[address] [facility] [address] [place], [place] [address] Gallbladder MR#: [id number] Acct: [id number] Name: AGUEDA LEWIS Rep #: [id number] : 1995 F 29 From: Robby Xie MD PCP: Care Physician,No Primary Status: REG ER Study: Gallbladder Date of Exam: 12/31/24 Exam# [id number] Ordering Dr: Jay Isaac MD PROCEDURE: GALLBLADDER 12/31/2024 REASON FOR EXAM: PAIN COMPARISON: 12/16/2024 FINDINGS: Liver is normal in size and echogenicity. CBD measures 5 mm. There are gallstones and localized pain. No wall thickening or pericholecystic fluid.. Unremarkable visible pancreas. Right kidney measures 10 cm in length without hydronephrosis. US/Gallbladder IMPRESSION: Gallstones and localized pain. If there is clinical concern for cholecystitis, recommend HIDA scanning. Reading Location: [place] [address] CC: Dr. Jay Isaac MD; No Primary Care Physician Java Engineer: Signed Normal [facility] Glomerular filtration rate ( GFR) estimation/1.73 sq m using serum, plasma, or whole bOrdered By: Jay Isaac on 12-31-2024 GFR/1.73 sq M.predicted among non-blacks MDRD (S/P/Bld) [Vol rate/Area] 69 mL/min/{1.73_m2} >60 [facility] Comment on above: mL/min/1.73m2 CKD-EP I Creatinine Equation (2020) Hematocrit Auto (Bld) [Volum e fraction]Ordered By: Jay Isaac on 12-31-2024 Hematocrit (Bld) [Volume fraction] 38.2 % 37-47 [facility] Hemoglobin measurementOrdere d By: Jay Isaac on 12-31-2024 Hemoglobin (Bld) [Mass/Vol] 12.2 g/dL 12.0-15.0 [facility] Immature granulocytes/100 WB C Auto (Bld)Ordered By: Jay Isaac on 12-31-2024 Immature granulocytes/100 WBC (Bld) 0.200 % 0.0-0.9 [facility] Comment on above: IG% - Immature Granu locytes (promyelocytes, myelocytes and metamyelocytes) > 1% indicates that a LEFT SHIFT is Present. Laboratory - Chemistry and C hemistry - challengeOrdered By: Jay Isaac on 12-31-2024 AST [Catalytic activity/Vol] 23 U/L <32 [facility] Lipaseon 12-31-2024 Lipase [Catalytic activity/Vol] 36 U/L Normal 13-75 [facility] Comment on above: Result Comment: Travis reeves note: LIPASE revised reference range effective 22. New Lipase methodology. Expected to produce lower values than the previous assay method. NEW Reference Range: 13 - 75 U/L Performed By: #### L 501.2450, L500.4050, L100.0100 ####[facility] [address] [facility] [place], [place], [id number] Lipase measurementOrdered By : Jay Isaac on 12-31-2024 Lipase [Catalytic activity/Vol] 36 U/L 13-75 [facility] Comment on above: Please note:LIPASE r evised reference range effective 22. New Lipase methodology. Expected to produce lower values than the previous assay method. NEW Reference Range: 13 - 75 U/L MCV (mean corpuscular volume ) determinationOrdered By: Jay Isaac on 12-31-2024 MCV (RBC) [Entitic vol] 80.1 fL Low 81-99 [facility] Mean corpuscular hemoglobin (MCH) determinationOrdered By: Jay Isaac on 12-31-2024 MCH (RBC) [Entitic mass] 25.6 pg Low 27.0-32.0 [facility] Mean corpuscular hemoglobin concentration (MCHC) determinationOrdered By: Jay Isaac on 12-31-2024 MCHC (RBC) [Mass/Vol] 31.9 g/dL Low 32-36 [facility] Mean platelet volume determi nationOrdered By: Jay Isaac on 12-31-2024 Platelet mean volume (Bld) [Entitic vol] 10.7 fL 6.2-12.0 [facility] Monocyte percentageOrdered B y: Jay Isaac on 12-31-2024 Monocytes/100 WBC (Bld) 9.4 % 0-10 [facility] Neutrophil percentageOrdered By: Jay Isaac on 12-31-2024 Neutrophils/100 WBC (Bld) 48.3 % 47-70 [facility] Nucleated red blood cell per centageOrdered By: Jay Isaac on 12-31-2024 Nucleated RBC/100 WBC (Bld) [Ratio] 0 % 0-5 [facility] Platelet countOrdered By: Jerry Isaac on 12-31-2024 Platelets (Bld) [#/Vol] 328 10*3/uL 150-450 [facility] Potassium measurement (mass/ volume)Ordered By: Jay Isaac on 12-31-2024 Potassium (Unsp spec) [Mass/Vol] 3.7 mmol/L 3.3-5.1 [facility] RBC Auto (Bld) [#/Vol]Ordere d By: Jay Isaac on 12-31-2024 RBC (Bld) [#/Vol] 4.77 10*6/uL 4.2-5.4 [facility] Serum creatinine measurement (mass/volume)Ordered By: Jay Isaac on 12-31-2024 Creatinine [Mass/Vol] 1.10 mg/dL 0.70-1.20 [facility] Serum globulin measurementOr dered By: Jay Isaac on 12-31-2024 Globulin (S) [Mass/Vol] 3.4 g/dL 2.2-4.2 [facility] Serum glucose measurement (m ass/volume)Ordered By: Jay Isaac on 12-31-2024 Glucose [Mass/Vol] 98 mg/dL 70-99 [facility] Serum or plasma alanine danielson otransferase (ALT) measurementOrdered By: Jay Isaac on 12-31-2024 ALT [Catalytic activity/Vol] 18 U/L <35 [facility] Serum or plasma albumin danitza urement (mass/volume)Ordered By: Jay Isaac on 12-31-2024 Albumin [Mass/Vol] 4.1 g/dL 3.5-5.0 [facility] Serum or plasma albumin/glob ulin mass ratioOrdered By: Jay Isaac on 12-31-2024 Albumin/Globulin [Mass ratio] 1.2 {ratio} 0.9-2.4 [facility] Serum or plasma alkaline tate sphatase measurementOrdered By: Jay Isaac on 12-31-2024 ALP [Catalytic activity/Vol] 79 U/L 35-104 [facility] Serum or plasma calcium danitza urement (mass/volume)Ordered By: Jay Isaac on 12-31-2024 Calcium [Mass/Vol] 9.2 mg/dL 7.6-11.0 [facility] Serum or plasma urea nitroge n measurement (mass/volume)Ordered By: Jay Isaac on 12-31-2024 Urea nitrogen [Mass/Vol] 10 mg/dL 4-19 [facility] Sodium levelOrdered By: Jay Isaac on 12-31-2024 Sodium [Moles/Vol] 138 mmol/L 133-145 [facility] Total proteinOrdered By: Barak Isaac on 12-31-2024 Protein [Mass/Vol] 7.4 g/dL 5.9-8.4 [facility] White blood cell (WBC) count Ordered By: Jay Isaac on 12-31-2024 WBC (Bld) [#/Vol] 8.3 10*3/uL 4.4-11.0 [facility] Absolute lymphocyte countOrd ered By: Alison Dodson on 12-16-2024 Lymphocytes Auto (Unsp spec) [#/Vol] 1.68 10*3/uL 0.83-4.51 [facility] Absolute neutrophil countOrd ered By: Alison Dodson on 12-16-2024 Neutrophils (Bld) [#/Vol] 4.5 10*3/uL 2.0-7.7 [facility] Anion gap in Serum or Plasma Ordered By: Alison Dodson on 12-16-2024 Anion gap [Moles/Vol] 9 mmol/L 5-15 [facility] Automated lymphocyte count a s percentage of total leukocytesOrdered By: Alison Dodson on 12-16-2024 Lymphocytes/100 WBC Auto (Unsp spec) 24.6 % 19-41 [facility] BUN/creatinine ratioOrdered By: Alison Dodson on 12-16-2024 Urea nitrogen/Creatinine [Mass ratio] 9.6 mg/mg Low 10- [facility] Basic Metabolic Profile (BMP )on 12-16-2024 BUN/CRE 9.6 RATIO Low 10- [facility] Comment on above: Performed By: #### L 501.2450, L500.3400, L100.0100, L500.2500 ####[facility] [address] [place], [address] Calcium [Mass/Vol] 9.0 mg/dL Normal 7.6-11.0 [facility] Comment on above: Performed By: #### L 501.2450, L500.3400, L100.0100, L500.2500 ####[facility] [address] [place], [address] Chloride [Moles/Vol] 107 mmol/L Normal 98-108 [facility] Comment on above: Performed By: #### L 501.2450, L500.3400, L100.0100, L500.2500 ####[facility] [address] [place], [address] CO2 [Moles/Vol] 22.9 mmol/L Normal 21.0-32.0 [facility] Comment on above: Performed By: #### L 501.2450, L500.3400, L100.0100, L500.2500 ####[facility] [address] [place], [address] Creatinine [Mass/Vol] 0.94 mg/dL Normal 0.70-1.20 [facility] Comment on above: Performed By: #### L 501.2450, L500.3400, L100.0100, L500.2500 ####[facility] [address] [place], [address] ECRCL 127.64 ml/min Normal 50-250 [facility] Comment on above: Performed By: #### L 501.2450, L500.3400, L100.0100, L500.2500 ####[facility] [address] [place], [address] GAP 9 Normal 5-15 [facility] Comment on above: Performed By: #### L 501.2450, L500.3400, L100.0100, L500.2500 ####[facility] [address] [place], [address] GFR/1.73 sq M.predicted among non-blacks MDRD (S/P/Bld) [Vol rate/Area] 84 mL/min/{1.73_m2} Normal >60 [facility] Comment on above: Result Comment: mL/m in/1.73m2 CKD-EPI Creatinine Equation (2020) Performed By: #### L 501.2450, L500.3400, L100.0100, L500.2500 ####[facility] [address] [place], [address] Glucose [Mass/Vol] 86 mg/dL Normal 70-99 [facility] Comment on above: Performed By: #### L 501.2450, L500.3400, L100.0100, L500.2500 ####[facility] [address] [place], [address] Potassium [Moles/Vol] 4.2 mmol/L Normal 3.3-5.1 [facility] Comment on above: Performed By: #### L 501.2450, L500.3400, L100.0100, L500.2500 ####[facility] [address] [place], [address] Sodium [Moles/Vol] 138 mmol/L Normal 133-145 [facility] Comment on above: Performed By: #### L 501.2450, L500.3400, L100.0100, L500.2500 ####[facility] [address] [place], [address] Urea nitrogen [Mass/Vol] 9 mg/dL Normal 4-19 [facility] Comment on above: Performed By: #### L 501.2450, L500.3400, L100.0100, L500.2500 ####[facility] [address] [place], [address] Basophil percentageOrdered B y: Alison Dodson on 12-16-2024 Basophils/100 WBC (Bld) 0.6 % 0-1 [facility] Bilirubin Test strip Ql (U)O rdered By: Alison Dodson on 12-16-2024 Bilirubin Ql (U) Negative Negative [facility] Bilirubin directOrdered By: Alison Dodson on 12-16-2024 Bilirubin.direct [Mass/Vol] 0.11 mg/dL 0.00-0.30 [facility] Bilirubin, totalOrdered By: Alison Dodson on 12-16-2024 Bilirubin [Mass/Vol] 0.24 mg/dL 0.00-1.30 [facility] CBC W/Diff, Automatedon 11-20 Absolute Lymph 1.68 X10 3/uL Normal 0.83-4.51 [facility] Comment on above: Performed By: #### L 501.2450, L500.3400, L100.0100, L500.2500 ####[facility] [address] [place], [address] Absolute Neut 4.5 X10 3/uL Normal 2.0-7.7 [facility] Comment on above: Performed By: #### L 501.2450, L500.3400, L100.0100, L500.2500 ####[facility] [address] [place], [address] Basophils/100 WBC (Bld) 0.6 % Normal 0-1 [facility] Comment on above: Performed By: #### L 501.2450, L500.3400, L100.0100, L500.2500 ####[facility] [address] [place], [address] Eosinophils/100 WBC (Bld) 2.0 % Normal 0-5 [facility] Comment on above: Performed By: #### L 501.2450, L500.3400, L100.0100, L500.2500 ####[facility] [address] [place], [address] Erythrocyte distribution width (RBC) [Ratio] 14.6 % Normal 11.6-14.6 [facility] Comment on above: Performed By: #### L 501.2450, L500.3400, L100.0100, L500.2500 ####[facility] [address] [place], [address] Hematocrit (Bld) [Volume fraction] 35.9 % Low 37-47 [facility] Comment on above: Performed By: #### L 501.2450, L500.3400, L100.0100, L500.2500 ####[facility] [address] [place], [address] Hemoglobin (Bld) [Mass/Vol] 11.2 g/dL Low 12.0-15.0 [facility] Comment on above: Performed By: #### L 501.2450, L500.3400, L100.0100, L500.2500 ####[facility] [address] [place], [address] IG% 0.300 Normal 0.0-0.9 [facility] Comment on above: Result Comment: IG% - Immature Granulocytes (promyelocytes, myelocytes and metamyelocytes) > 1% indicates that a LEFT SHIFT is Present. Performed By: #### L 501.2450, L500.3400, L100.0100, L500.2500 ####[facility] [address] [place], [address] Lymphocytes/100 WBC (Bld) 24.6 % Normal 19-41 [facility] Comment on above: Performed By: #### L 501.2450, L500.3400, L100.0100, L500.2500 ####[facility] [address] [place], [address] MCH (RBC) [Entitic mass] 25.7 pg Low 27.0-32.0 [facility] Comment on above: Performed By: #### L 501.2450, L500.3400, L100.0100, L500.2500 ####[facility] [address] [place], [address] MCHC (RBC) [Mass/Vol] 31.2 g/dL Low 32-36 [facility] Comment on above: Performed By: #### L 501.2450, L500.3400, L100.0100, L500.2500 ####[facility] [address] [place], [address] MCV (RBC) [Entitic vol] 82.3 fL Normal 81-99 [facility] Comment on above: Performed By: #### L 501.2450, L500.3400, L100.0100, L500.2500 ####[facility] [address] [place], [address] Monocytes/100 WBC (Bld) 7.3 % Normal 0-10 [facility] Comment on above: Performed By: #### L 501.2450, L500.3400, L100.0100, L500.2500 ####[facility] [address] [place], [address] Neutrophils/100 WBC (Bld) 65.2 % Normal 47-70 [facility] Comment on above: Performed By: #### L 501.2450, L500.3400, L100.0100, L500.2500 ####[facility] [address] [place], [address] Nucleated RBC (Bld) [#/Vol] 0 10*3/uL Normal 0-5 [facility] Comment on above: Performed By: #### L 501.2450, L500.3400, L100.0100, L500.2500 ####[facility] [address] [place], [address] Platelet mean volume (Bld) [Entitic vol] 11.1 fL Normal 6.2-12.0 [facility] Comment on above: Performed By: #### L 501.2450, L500.3400, L100.0100, L500.2500 ####[facility] [address] [place], [address] Platelets (Bld) [#/Vol] 279 10*3/uL Normal 150-450 [facility] Comment on above: Performed By: #### L 501.2450, L500.3400, L100.0100, L500.2500 ####[facility] [address] [place], [address] RBC (Bld) [#/Vol] 4.36 10*6/uL Normal 4.2-5.4 [facility] Comment on above: Performed By: #### L 501.2450, L500.3400, L100.0100, L500.2500 ####[facility] [address] [place], [address] RDW SD 43.8 fl Normal 35.1-43.9 [facility] Comment on above: Performed By: #### L 501.2450, L500.3400, L100.0100, L500.2500 ####[facility] [address] [place], [address] WBC (Bld) [#/Vol] 6.8 10*3/uL Normal 4.4-11.0 [facility] Comment on above: Performed By: #### L 501.2450, L500.3400, L100.0100, L500.2500 ####[facility] [address] [place], [address] CNOVon 12-16-2024 CNOV Office Visit (WOUCA) ----- AGUEDA LEWIS ([id number]) 1995 F Date Time Provider Department 12/16/24 11:45 AM RICK MCKINNON During your visit today, we recorded the following information about you: Temperature Pulse Respiration Blood pressure 98.3 degrees 85/minute 18/minute 112/88 Weight 120.8 kg Rick Mckinnon APRN.CLOTHING CONSULTANT 12/16/2024 11:55 AM Signed [facility] Subjective Agueda Kenneth Lewis is a 29 year old female. [...] ED for imaging. Will be seen at [facility], [employer] SUPERVISOR.CLOTHING CONSULTANT History and Record Review Clinical information obtained [...] 10/15/2024 Level of Service: OFFICE/OUTPATIENT ESTABLISHED LOW MDM 20 MIN [05814] Encounter Status:Closed by RICK MCKINNON on 12/16/24 Normal [facility] Carbon dioxide, total [Moles /volume] in Central venous bloodOrdered By: Alison Dodson on 12-16-2024 CO2 [Moles/Vol] 22.9 mmol/L 21.0-32.0 [facility] Chloride assayOrdered By: Brandon Dodson on 12-16-2024 Chloride [Moles/Vol] 107 mmol/L 98-108 [facility] Emergency Department Summary on 12-16-2024 Emergency Department Summary [facility] Medical Records Department [address] [place] [address] Emergency Department Summary 12/16/24 MR#: [id number] Acct: [id number] Name: AGUEDA LEWIS Rep #: [id number] : 1995 29 From: Alison Dodson DO [...] urinary symptoms. Denies any concern for . [facility] Medical History Gallstone Wears contact lenses Depression [...] pericholecystic fl (more content not included)... Normal [facility] Eosinophil percentageOrdered By: Alison Dodson on 12-16-2024 Eosinophils/100 WBC (Bld) 2.0 % 0-5 [facility] Erythrocyte distribution wid th ratioOrdered By: Alison Dodson on 12-16-2024 Erythrocyte distribution width (RBC) [Ratio] 14.6 % 11.6-14.6 [facility] Erythrocyte distribution wid th standard deviationOrdered By: Alison Dodson on 12-16-2024 Erythrocyte distribution width (RBC) [Ratio] 43.8 fl 35.1-43.9 [facility] Gallbladderon 12-16-[address] [facility] Imaging Services [address] [place], [place] [address] Gallbladder MR#: [id number] Acct: [id number] Name: AGUEDA LEWIS Rep #: [id number] : 1995 F 29 From: Michel lopes MD PCP: Care Physician,No Primary Status: DEP ER Study: Gallbladder Date of Exam: 12/16/24 Exam# [id number] Ordering Dr: Alison Dodson DO ADDENDUM by Dr. Robby Xie MD on 12/16/24 at 8174 . Reading Location: [place] [address] 12/16/242158 Date cc: Dr. Alison Dodson DO; [...] Positive sonographic Porter's sign. Hepatomegaly. Reading Location: [id number] CC: Dr. Alison Dodson, DO; No Primary Care Physician Java Engineer: Signed Normal [facility] Glomerular filtration rate ( GFR) estimation/1.73 sq m using serum, plasma, or whole bOrdered By: Alison Dodson on 12-16-2024 GFR/1.73 sq M.predicted among non-blacks MDRD (S/P/Bld) [Vol rate/Area] 84 mL/min/{1.73_m2} >60 [facility] Comment on above: mL/min/1.73m2 CKD-EP I Creatinine Equation (2020) Hematocrit Auto (Bld) [Volum e fraction]Ordered By: Alison Dodson on 12-16-2024 Hematocrit (Bld) [Volume fraction] 35.9 % Low 37-47 [facility] Hemoglobin measurementOrdere d By: Alison Dodson on 12-16-2024 Hemoglobin (Bld) [Mass/Vol] 11.2 g/dL Low 12.0-15.0 [facility] Immature granulocytes/100 WB C Auto (Bld)Ordered By: Alison Dodson on 12-16-2024 Immature granulocytes/100 WBC (Bld) 0.300 % 0.0-0.9 [facility] Comment on above: IG% - Immature Granu locytes (promyelocytes, myelocytes and metamyelocytes) > 1% indicates that a LEFT SHIFT is Present. Ketones Test strip Ql (U)Ord ered By: Alison Dodson on 12-16-2024 Ketones Ql (U) Negative Negative [facility] Laboratory - Chemistry and C hemistry - challengeOrdered By: Alison Dodson on 12-16-2024 AST [Catalytic activity/Vol] 22 U/L <32 [facility] Lipaseon 12-16-2024 Lipase [Catalytic activity/Vol] 38 U/L Normal 13-75 [facility] Comment on above: Result Comment: Travis reeves note: LIPASE revised reference range effective 22. New Lipase methodology. Expected to produce lower values than the previous assay method. NEW Reference Range: 13 - 75 U/L Performed By: #### L 501.2450, L500.3400, L100.0100, L500.2500 ####[facility] [address] [place], [address] Lipase measurementOrdered By : Alison Dodson on 12-16-2024 Lipase [Catalytic activity/Vol] 38 U/L 13-75 [facility] Comment on above: Please note:LIPASE r evised reference range effective 22. New Lipase methodology. Expected to produce lower values than the previous assay method. NEW Reference Range: 13 - 75 U/L Liver Profileon 12-16-2024 Albumin [Mass/Vol] 3.8 g/dL Normal 3.5-5.0 [facility] Comment on above: Performed By: #### L 501.2450, L500.3400, L100.0100, L500.2500 ####[facility] [address] [place], [address] ALK PHOS 81 U/L Normal 35-104 [facility] Comment on above: Performed By: #### L 501.2450, L500.3400, L100.0100, L500.2500 ####[facility] [address] [place], [address] ALT [Catalytic activity/Vol] 27 U/L Normal <=34 [facility] Comment on above: Performed By: #### L 501.2450, L500.3400, L100.0100, L500.2500 ####[facility] [address] [place], [address] AST [Catalytic activity/Vol] 22 U/L Normal <=31 [facility] Comment on above: Performed By: #### L 501.2450, L500.3400, L100.0100, L500.2500 ####[facility] [address] [place], [address] Bilirubin [Mass/Vol] 0.24 mg/dL Normal 0.00-1.30 [facility] Comment on above: Performed By: #### L 501.2450, L500.3400, L100.0100, L500.2500 ####[facility] [address] [place], [address] Bilirubin.direct [Mass/Vol] 0.11 mg/dL Normal 0.00-0.30 [facility] Comment on above: Performed By: #### L 501.2450, L500.3400, L100.0100, L500.2500 ####[facility] [address] [place], [address] Globulin (S) [Mass/Vol] 2.9 g/dL Normal 2.2-4.2 [facility] Comment on above: Performed By: #### L 501.2450, L500.3400, L100.0100, L500.2500 ####[facility] [address] [place], [address] T PROT 6.8 g/dL Normal 5.9-8.4 [facility] Comment on above: Performed By: #### L 501.2450, L500.3400, L100.0100, L500.2500 ####[facility] [address] [place], [address] MCV (mean corpuscular volume ) determinationOrdered By: Alison Dodson on 12-16-2024 MCV (RBC) [Entitic vol] 82.3 fL 81-99 [facility] Mean corpuscular hemoglobin (MCH) determinationOrdered By: Alison Dodson on 12-16-2024 MCH (RBC) [Entitic mass] 25.7 pg Low 27.0-32.0 [facility] Mean corpuscular hemoglobin concentration (MCHC) determinationOrdered By: Alison Dodson on 12-16-2024 MCHC (RBC) [Mass/Vol] 31.2 g/dL Low 32-36 [facility] Mean platelet volume determi nationOrdered By: Alison Dodson on 12-16-2024 Platelet mean volume (Bld) [Entitic vol] 11.1 fL 6.2-12.0 [facility] Microscopic analysis of urin e for red blood cells (RBC)Ordered By: Alison Dodson on 12-16-2024 Microscopic analysis of urine for red blood cells (RBC) 0 SEEN /hpf 0-5 [facility] Monocyte percentageOrdered B y: Alison Dodson on 12-16-2024 Monocytes/100 WBC (Bld) 7.3 % 0-10 [facility] Mucus LM Ql (Urine sed)Order ed By: Alison Dodson on 12-16-2024 Mucus Ql (Urine sed) 0 SEEN /hpf [facility] Neutrophil percentageOrdered By: Alison Dodson on 12-16-2024 Neutrophils/100 WBC (Bld) 65.2 % 47-70 [facility] Nitrite Test strip Ql (U)Ord ered By: Alison Dodson on 12-16-2024 Nitrite Ql (U) Negative Negative [facility] Nucleated red blood cell per centageOrdered By: Alison Dodson on 12-16-2024 Nucleated RBC/100 WBC (Bld) [Ratio] 0 % 0-5 [facility] Platelet countOrdered By: Brandon Dodson on 12-16-2024 Platelets (Bld) [#/Vol] 279 10*3/uL 150-450 [facility] Potassium measurement (mass/ volume)Ordered By: Alison Dodson on 12-16-2024 Potassium (Unsp spec) [Mass/Vol] 4.2 mmol/L 3.3-5.1 [facility] ,Urineon 12-16-2024 Beta HCG ( test) Ql (U) Negative Normal [facility] Comment on above: Result Comment: Very dilute urine specimens, as indicated by a low specific gravity, may not contain phone representative levels of hCG. If is still suspected, a first morning urine specimen should be collected 48 hours later and tested. Performed By: #### L 737.8831 ####[facility] [address] [place], [address] Protein Test strip Ql (U)Ord ered By: Alison Dodson on 12-16-2024 Protein Ql (U) Negative Negative [facility] RBC Auto (Bld) [#/Vol]Ordere d By: Alison Dodson on 12-16-2024 RBC (Bld) [#/Vol] 4.36 10*6/uL 4.2-5.4 [facility] Serum creatinine measurement (mass/volume)Ordered By: Alison Dodson on 12-16-2024 Creatinine [Mass/Vol] 0.94 mg/dL 0.70-1.20 [facility] Serum globulin measurementOr dered By: Alison Dodson on 12-16-2024 Globulin (S) [Mass/Vol] 2.9 g/dL 2.2-4.2 [facility] Serum glucose measurement (m ass/volume)Ordered By: Alison Dodson on 12-16-2024 Glucose [Mass/Vol] 86 mg/dL 70-99 [facility] Serum or plasma alanine danielson otransferase (ALT) measurementOrdered By: Alison Dodson on 12-16-2024 ALT [Catalytic activity/Vol] 27 U/L <35 [facility] Serum or plasma albumin danitza urement (mass/volume)Ordered By: Alison Dodson on 12-16-2024 Albumin [Mass/Vol] 3.8 g/dL 3.5-5.0 [facility] Serum or plasma alkaline tate sphatase measurementOrdered By: Alison Dodson 12-16-2024 ALP [Catalytic activity/Vol] 81 U/L 35-104 [facility] Serum or plasma calcium danitza urement (mass/volume)Ordered By: Alison Dodson on 12-16-2024 Calcium [Mass/Vol] 9.0 mg/dL 7.6-11.0 [facility] Serum or plasma urea nitroge n measurement (mass/volume)Ordered By: Alison Dodson on 12-16-2024 Urea nitrogen [Mass/Vol] 9 mg/dL 4-19 [facility] Sodium levelOrdered By: Zhane Dodson on 12-16-2024 Sodium [Moles/Vol] 138 mmol/L 133-145 [facility] Squamous epithelial cells de tection in urine sediment by light microscopyOrdered By: Alison Dodson on 12-16-2024 Epithelial cells.squamous LM Ql (Urine sed) 0-5 SEEN /hpf 5-10 [facility] Total proteinOrdered By: Tamara Dodson on 12-16-2024 Protein [Mass/Vol] 6.8 g/dL 5.9-8.4 [facility] Urinalysis, Completeon 12-16 BACTERIA RARE Normal None Seen [facility] Comment on above: Order Comment: KASHIF CTOR TO SPECIFY Performed By: #### L 400.0001 ####[facility] [address] [place] [id number] EPI,SQUAMOUS 0-5 SEEN Normal 5-10 [facility] Comment on above: Order Comment: KASHIF CTOR TO SPECIFY Performed By: #### L 400.0001 ####[facility] [address] [place], [address] Mucus Ql (Urine sed) 0 SEEN Normal [facility] Comment on above: Order Comment: KASHIF CTOR TO SPECIFY Performed By: #### L 400.0001 ####[facility] [address] [place], [address] RBC 0 SEEN Normal 0-5 [facility] Comment on above: Order Comment: KASHIF CTOR TO SPECIFY Performed By: #### L 400.0001 ####[facility] [address] [place], [address] WBC 0 SEEN Normal 0-5 [facility] Comment on above: Order Comment: KASHIF CTOR TO SPECIFY Performed By: #### L 400.0001 ####[facility] [address] [place], [address] Urine clarityOrdered By: Tamara Dodson on 12-16-2024 Clarity (U) Clear Clear [facility] Urine color determinationOrd ered By: Alison Dodson on 12-16-2024 Color (U) Yellow Yellow [facility] Urine glucose detectionOrder ed By: Alison Dodson on 12-16-2024 Glucose Ql (U) Normal mg/dl Normal [facility] Urine leukocyte esterase det ection by dipstickOrdered By: Alison Dodson on 12-16-2024 Leukocyte esterase Test strip Ql (U) Negative Negative [facility] Urine pHOrdered By: Alison orellana on 12-16-2024 pH (U) 7.0 [pH] 5.0 - 8.0 [facility] Urine testOrdered By: Alison Dodson on 12-16-2024 HCG ( test) Ql (U) Negative [facility] Comment on above: Very dilute urine sp ecimens, as indicated by a low specificgravity, may not contain phone representative levels of hCG. If is still suspected, a first morning urinespecimen should be collected 48 hours later and tested. Urine sediment bacteria coun t by microscopy (number/high power field)Ordered By: Alison Dodson on 12-16-2024 Bacteria LM.HPF (Urine sed) [#/Area] RARE /hpf None Seen [facility] Urine specific gravity measu rementOrdered By: Alison Dodson on 12-16-2024 Specific gravity (U) [Rel density] 1.010 1.002-1.030 [facility] Urine urobilinogen measureme ntOrdered By: Alison Dodson on 12-16-2024 Urobilinogen Ql (U) Normal mg/dl Normal [facility] White blood cell (WBC) count Ordered By: Alison Dodson on 12-16-2024 WBC (Bld) [#/Vol] 6.8 10*3/uL 4.4-11.0 [facility] White blood cell countOrdere d By: Alison Dodson on 12-16-2024 White blood cell count 0 SEEN /hpf 0-5 [facility] Abdomen/Pelvis W IV Cont ONL Yon 11-29-2024 Abdomen/Pelvis W IV Cont ONLY [facility] Imaging Services [address] [place], [place] [address] Abdomen/Pelvis W IV Cont ONLY MR#: [id number] Acct: [id number] Name: AGUEDA LEWIS Rep #: [id number] : 1995 F 29 From: Daysi feldman MD PCP: Care Physician,No Primary Status: REG ER Study: Abdomen/Pelvis W IV Cont ONLY Date of Exam: Exam# [id number] Ordering Dr: Shailesh Merritt DO PROCEDURE: ABDOMEN/PELVIS [...] sonography, clinical and laboratory correlation. Reading Location: [place] [address] CC: Shailesh Merritt DO; No Primary Care Physician Java Engineer: Signed Normal [facility] Absolute lymphocyte countOrd ered By: Shailesh Merritt on 11-29-2024 Lymphocytes Auto (Unsp spec) [#/Vol] 2.50 10*3/uL 0.83-4.51 [facility] Absolute neutrophil countOrd ered By: Shailesh Merritt on 11-29-2024 Neutrophils (Bld) [#/Vol] 4.4 10*3/uL 2.0-7.7 [facility] Anion gap in Serum or Plasma Ordered By: Shailesh Merritt on 11-29-2024 Anion gap [Moles/Vol] 11 mmol/L 5-15 [facility] Automated lymphocyte count a s percentage of total leukocytesOrdered By: Shailesh Merritt on 11-29-2024 Lymphocytes/100 WBC Auto (Unsp spec) 31.7 % 19-41 [facility] BUN/creatinine ratioOrdered By: Shailesh Merritt on 11-29-2024 Urea nitrogen/Creatinine [Mass ratio] 8.2 mg/mg Low 10- [facility] Basic Metabolic Profile (BMP )on 11-29-2024 BUN/CRE 8.2 RATIO Low 10-20 [facility] Comment on above: Performed By: #### L 700.6800, L501.2450, L500.2500, L100.0100, L500.3400 #### [facility] [address] [place], [address] Calcium [Mass/Vol] 8.7 mg/dL Normal 7.6-11.0 [facility] Comment on above: Performed By: #### L 700.6800, L501.2450, L500.2500, L100.0100, L500.3400 #### [facility] [address] [place], [address] Chloride [Moles/Vol] 107 mmol/L Normal 98-108 [facility] Comment on above: Performed By: #### L 700.6800, L501.2450, L500.2500, L100.0100, L500.3400 #### [facility] [address] [place], [address] CO2 [Moles/Vol] 21.5 mmol/L Normal 21.0-32.0 [facility] Comment on above: Performed By: #### L 700.6800, L501.2450, L500.2500, L100.0100, L500.3400 #### [facility] [address] [place], [address] Creatinine [Mass/Vol] 1.05 mg/dL Normal 0.70-1.20 [facility] Comment on above: Performed By: #### L 700.6800, L501.2450, L500.2500, L100.0100, L500.3400 #### [facility] [address] [place], [address] ECRCL 114.29 ml/min Normal 50-250 [facility] Comment on above: Performed By: #### L 700.6800, L501.2450, L500.2500, L100.0100, L500.3400 #### [facility] [address] [place], [address] GAP 11 Normal 5-15 [facility] Comment on above: Performed By: #### L 700.6800, L501.2450, L500.2500, L100.0100, L500.3400 #### [facility] [address] [place], [address] GFR/1.73 sq M.predicted among non-blacks MDRD (S/P/Bld) [Vol rate/Area] 73 mL/min/{1.73_m2} Normal >60 [facility] Comment on above: Result Comment: mL/m in/1.73m2 CKD-EPI Creatinine Equation (2020) Performed By: #### L 700.6800, L501.2450, L500.2500, L100.0100, L500.3400 #### [facility] [address] [place], [address] Glucose [Mass/Vol] 93 mg/dL Normal 70-99 [facility] Comment on above: Performed By: #### L 700.6800, L501.2450, L500.2500, L100.0100, L500.3400 #### [facility] [address] [place], [address] Potassium [Moles/Vol] 3.7 mmol/L Normal 3.3-5.1 [facility] Comment on above: Performed By: #### L 700.6800, L501.2450, L500.2500, L100.0100, L500.3400 #### [facility] [address] [place], [address] Sodium [Moles/Vol] 139 mmol/L Normal 133-145 [facility] Comment on above: Performed By: #### L 700.6800, L501.2450, L500.2500, L100.0100, L500.3400 #### [facility] [address] [place], [address] Urea nitrogen [Mass/Vol] 9 mg/dL Normal 4-19 [facility] Comment on above: Performed By: #### L 700.6800, L501.2450, L500.2500, L100.0100, L500.3400 #### [facility] [address] [place], [address] Basophil percentageOrdered B y: Shailesh Merritt on 11-29-2024 Basophils/100 WBC (Bld) 0.5 % 0-1 [facility] Bilirubin directOrdered By: Shailesh Merritt on 11-29-2024 Bilirubin.direct [Mass/Vol] mg/dL 0.00-0.30 [facility] Bilirubin, totalOrdered By: Shailesh Merritt on 11-29-2024 Bilirubin [Mass/Vol] 0.17 mg/dL 0.00-1.30 [facility] CBC W/Diff, Automatedon 11-19 Absolute Lymph 2.50 X10 3/uL Normal 0.83-4.51 [facility] Comment on above: Performed By: #### L 700.6800, L501.2450, L500.2500, L100.0100, L500.3400 #### [facility] [address] [place], [address] Absolute Neut 4.4 X10 3/uL Normal 2.0-7.7 [facility] Comment on above: Performed By: #### L 700.6800, L501.2450, L500.2500, L100.0100, L500.3400 #### [facility] [address] [place], [address] Basophils/100 WBC (Bld) 0.5 % Normal 0-1 [facility] Comment on above: Performed By: #### L 700.6800, L501.2450, L500.2500, L100.0100, L500.3400 #### [facility] [address] [place], [address] Eosinophils/100 WBC (Bld) 2.9 % Normal 0-5 [facility] Comment on above: Performed By: #### L 700.6800, L501.2450, L500.2500, L100.0100, L500.3400 #### [facility] [address] [place], [address] Erythrocyte distribution width (RBC) [Ratio] 14.8 % High 11.6-14.6 [facility] Comment on above: Performed By: #### L 700.6800, L501.2450, L500.2500, L100.0100, L500.3400 #### [facility] [address] [place], [address] Hematocrit (Bld) [Volume fraction] 35.8 % Low 37-47 [facility] Comment on above: Performed By: #### L 700.6800, L501.2450, L500.2500, L100.0100, L500.3400 #### [facility] [address] [place], [address] Hemoglobin (Bld) [Mass/Vol] 11.3 g/dL Low 12.0-15.0 [facility] Comment on above: Performed By: #### L 700.6800, L501.2450, L500.2500, L100.0100, L500.3400 #### [facility] [address] [place], [address] IG% 0.100 Normal 0.0-0.9 [facility] Comment on above: Result Comment: IG% - Immature Granulocytes (promyelocytes, myelocytes and metamyelocytes) > 1% indicates that a LEFT SHIFT is Present. Performed By: #### L 700.6800, L501.2450, L500.2500, L100.0100, L500.3400 #### [facility] [address] [place], [address] Lymphocytes/100 WBC (Bld) 31.7 % Normal 19-41 [facility] Comment on above: Performed By: #### L 700.6800, L501.2450, L500.2500, L100.0100, L500.3400 #### [facility] [address] [place], [address] MCH (RBC) [Entitic mass] 25.9 pg Low 27.0-32.0 [facility] Comment on above: Performed By: #### L 700.6800, L501.2450, L500.2500, L100.0100, L500.3400 #### [facility] [address] [place], [address] MCHC (RBC) [Mass/Vol] 31.6 g/dL Low 32-36 [facility] Comment on above: Performed By: #### L 700.6800, L501.2450, L500.2500, L100.0100, L500.3400 #### [facility] [address] [place], [address] MCV (RBC) [Entitic vol] 82.1 fL Normal 81-99 [facility] Comment on above: Performed By: #### L 700.6800, L501.2450, L500.2500, L100.0100, L500.3400 #### [facility] [address] [place], [address] Monocytes/100 WBC (Bld) 8.6 % Normal 0-10 [facility] Comment on above: Performed By: #### L 700.6800, L501.2450, L500.2500, L100.0100, L500.3400 #### [facility] [address] [place], [address] Neutrophils/100 WBC (Bld) 56.2 % Normal 47-70 [facility] Comment on above: Performed By: #### L 700.6800, L501.2450, L500.2500, L100.0100, L500.3400 #### [facility] [address] [place], [address] Nucleated RBC (Bld) [#/Vol] 0 10*3/uL Normal 0-5 [facility] Comment on above: Performed By: #### L 700.6800, L501.2450, L500.2500, L100.0100, L500.3400 #### [facility] [address] [place], [address] Platelet mean volume (Bld) [Entitic vol] 10.8 fL Normal 6.2-12.0 [facility] Comment on above: Performed By: #### L 700.6800, L501.2450, L500.2500, L100.0100, L500.3400 #### [facility] [address] [place], [address] Platelets (Bld) [#/Vol] 308 10*3/uL Normal 150-450 [facility] Comment on above: Performed By: #### L 700.6800, L501.2450, L500.2500, L100.0100, L500.3400 #### [facility] [address] [place], [address] RBC (Bld) [#/Vol] 4.36 10*6/uL Normal 4.2-5.4 [facility] Comment on above: Performed By: #### L 700.6800, L501.2450, L500.2500, L100.0100, L500.3400 #### [facility] [address] [place], [address] RDW SD 44.4 fl High 35.1-43.9 [facility] Comment on above: Performed By: #### L 700.6800, L501.2450, L500.2500, L100.0100, L500.3400 #### [facility] [address] [place], [address] WBC (Bld) [#/Vol] 7.9 10*3/uL Normal 4.4-11.0 [facility] Comment on above: Performed By: #### L 700.6800, L501.2450, L500.2500, L100.0100, L500.3400 #### [facility] [address] [place], [address] Carbon dioxide, total [Moles /volume] in Central venous bloodOrdered By: Shailesh Merritt on 11-29-2024 CO2 [Moles/Vol] 21.5 mmol/L 21.0-32.0 [facility] Chloride assayOrdered By: Akila Merritt on 11-29-2024 Chloride [Moles/Vol] 107 mmol/L 98-108 [facility] Emergency Department Summary on 11-29-2024 Emergency Department Summary [facility] Medical Records Department [address] [place] [address] Emergency Department Summary 11/29/24 MR#: [id number] Acct: [id number] Name: AGUEDA LEWIS Rep #: [id number] : 1995 29 From: Shailesh Merritt DO [...] to her gallbladder she presents for evaluation [facility] Medical History (Updated 12/03/24 @ 05:19 by [...] review w (more content not included)... Normal [facility] Eosinophil percentageOrdered By: Shailesh Merritt on 11-29-2024 Eosinophils/100 WBC (Bld) 2.9 % 0-5 [facility] Erythrocyte distribution wid th ratioOrdered By: Shailesh Merritt on 11-29-2024 Erythrocyte distribution width (RBC) [Ratio] 14.8 % High 11.6-14.6 [facility] Erythrocyte distribution wid th standard deviationOrdered By: Shailesh Merritt on 11-29-2024 Erythrocyte distribution width (RBC) [Ratio] 44.4 fl High 35.1-43.9 [facility] Glomerular filtration rate ( GFR) estimation/1.73 sq m using serum, plasma, or whole bOrdered By: Shailesh Merritt on 11-29-2024 GFR/1.73 sq M.predicted among non-blacks MDRD (S/P/Bld) [Vol rate/Area] 73 mL/min/{1.73_m2} >60 [facility] Comment on above: mL/min/1.73m2 CKD-EP I Creatinine Equation (2020) Hematocrit Auto (Bld) [Volum e fraction]Ordered By: Shailesh Merritt on 11-29-2024 Hematocrit (Bld) [Volume fraction] 35.8 % Low 37-47 [facility] Hemoglobin measurementOrdere d By: Shailesh Merritt on 11-29-2024 Hemoglobin (Bld) [Mass/Vol] 11.3 g/dL Low 12.0-15.0 [facility] Immature granulocytes/100 WB C Auto (Bld)Ordered By: Shailesh Merritt on 11-29-2024 Immature granulocytes/100 WBC (Bld) 0.100 % 0.0-0.9 [facility] Comment on above: IG% - Immature Granu locytes (promyelocytes, myelocytes and metamyelocytes) > 1% indicates that a LEFT SHIFT is Present. Laboratory - Chemistry and C hemistry - challengeOrdered By: Shailesh Merritt on 11-29-2024 AST [Catalytic activity/Vol] 18 U/L <32 [facility] Lipaseon 11-29-2024 Lipase [Catalytic activity/Vol] 40 U/L Normal 13-75 [facility] Comment on above: Result Comment: Plea se note: LIPASE revised reference range effective 22. New Lipase methodology. Expected to produce lower values than the previous assay method. NEW Reference Range: 13 - 75 U/L Performed By: #### L 700.6800, L501.2450, L500.2500, L100.0100, L500.3400 #### [facility] [address] [place], [address] Lipase measurementOrdered By : Shailesh Merritt on 11-29-2024 Lipase [Catalytic activity/Vol] 40 U/L 13-75 [facility] Comment on above: Please note:LIPASE r evised reference range effective 22. New Lipase methodology. Expected to produce lower values than the previous assay method. NEW Reference Range: 13 - 75 U/L Liver Profileon 11-29-2024 Albumin [Mass/Vol] 3.7 g/dL Normal 3.5-5.0 [facility] Comment on above: Performed By: #### L 700.6800, L501.2450, L500.2500, L100.0100, L500.3400 #### [facility] [address] [place], [address] ALK PHOS 76 U/L Normal 35-104 [facility] Comment on above: Performed By: #### L 700.6800, L501.2450, L500.2500, L100.0100, L500.3400 #### [facility] [address] [place], [address] ALT [Catalytic activity/Vol] 12 U/L Normal <=34 [facility] Comment on above: Performed By: #### L 700.6800, L501.2450, L500.2500, L100.0100, L500.3400 #### [facility] [address] [place], [address] AST [Catalytic activity/Vol] 18 U/L Normal <=31 [facility] Comment on above: Performed By: #### L 700.6800, L501.2450, L500.2500, L100.0100, L500.3400 #### [facility] [address] [place], [address] Bilirubin [Mass/Vol] 0.17 mg/dL Normal 0.00-1.30 [facility] Comment on above: Performed By: #### L 700.6800, L501.2450, L500.2500, L100.0100, L500.3400 #### [facility] [address] [place], [address] D BILI < 0.08 Normal 0.00-0.30 [facility] Comment on above: Performed By: #### L 700.6800, L501.2450, L500.2500, L100.0100, L500.3400 #### [facility] [address] [place], [address] Globulin (S) [Mass/Vol] 3.0 g/dL Normal 2.2-4.2 [facility] Comment on above: Performed By: #### L 700.6800, L501.2450, L500.2500, L100.0100, L500.3400 #### [facility] [address] [place], [address] T PROT 6.6 g/dL Normal 5.9-8.4 [facility] Comment on above: Performed By: #### L 700.6800, L501.2450, L500.2500, L100.0100, L500.3400 #### [facility] [address] [place], [address] MCV (mean corpuscular volume ) determinationOrdered By: Shailesh Merritt on 11-29-2024 MCV (RBC) [Entitic vol] 82.1 fL 81-99 [facility] Mean corpuscular hemoglobin (MCH) determinationOrdered By: Shailesh Merritt on 11-29-2024 MCH (RBC) [Entitic mass] 25.9 pg Low 27.0-32.0 [facility] Mean corpuscular hemoglobin concentration (MCHC) determinationOrdered By: Shailesh Merritt on 11-29-2024 MCHC (RBC) [Mass/Vol] 31.6 g/dL Low 32-36 [facility] Mean platelet volume determi nationOrdered By: Shailesh Merritt on 11-29-2024 Platelet mean volume (Bld) [Entitic vol] 10.8 fL 6.2-12.0 [facility] Monocyte percentageOrdered B y: Shailesh Merritt on 11-29-2024 Monocytes/100 WBC (Bld) 8.6 % 0-10 [facility] Neutrophil percentageOrdered By: Shailesh Merritt on 11-29-2024 Neutrophils/100 WBC (Bld) 56.2 % 47-70 [facility] Nucleated red blood cell per centageOrdered By: Shailesh Merritt on 11-29-2024 Nucleated RBC/100 WBC (Bld) [Ratio] 0 % 0-5 [facility] Platelet countOrdered By: Akila Merritt on 11-29-2024 Platelets (Bld) [#/Vol] 308 10*3/uL 150-450 [facility] Potassium measurement (mass/ volume)Ordered By: Shailesh Merritt on 11-29-2024 Potassium (Unsp spec) [Mass/Vol] 3.7 mmol/L 3.3-5.1 [facility] ,Serum,hCG Quali.on 11-29-2024 HCG, SERUM QUAL Negative Normal [facility] Comment on above: Performed By: #### L 700.6800, L501.2450, L500.2500, L100.0100, L500.3400 #### [facility] [address] [place], [place], [id number] RBC Auto (Bld) [#/Vol]Ordere d By: Shailesh Merritt on 11-29-2024 RBC (Bld) [#/Vol] 4.36 10*6/uL 4.2-5.4 [facility] Serum beta-hCG test, qualita tiveOrdered By: Shailesh Merritt on 11-29-2024 Beta HCG ( test) Ql Negative [facility] Serum creatinine measurement (mass/volume)Ordered By: Shailesh Merritt on 11-29-2024 Creatinine [Mass/Vol] 1.05 mg/dL 0.70-1.20 [facility] Serum globulin measurementOr dered By: Shailesh Merritt on 11-29-2024 Globulin (S) [Mass/Vol] 3.0 g/dL 2.2-4.2 [facility] Serum glucose measurement (m ass/volume)Ordered By: Shailesh Merritt on 11-29-2024 Glucose [Mass/Vol] 93 mg/dL 70-99 [facility] Serum or plasma alanine danielson otransferase (ALT) measurementOrdered By: Shailesh Merritt on 11-29-2024 ALT [Catalytic activity/Vol] 12 U/L <35 [facility] Serum or plasma albumin danitza urement (mass/volume)Ordered By: Shailesh Merritt on 11-29-2024 Albumin [Mass/Vol] 3.7 g/dL 3.5-5.0 [facility] Serum or plasma alkaline tate sphatase measurementOrdered By: Shailesh Merritt on 11-29-2024 ALP [Catalytic activity/Vol] 76 U/L 35-104 [facility] Serum or plasma calcium danitza urement (mass/volume)Ordered By: Shailesh Merritt on 11-29-2024 Calcium [Mass/Vol] 8.7 mg/dL 7.6-11.0 [facility] Serum or plasma urea nitroge n measurement (mass/volume)Ordered By: Shailesh Merritt on 11-29-2024 Urea nitrogen [Mass/Vol] 9 mg/dL 4-19 [facility] Sodium levelOrdered By: Henry Merritt on 11-29-2024 Sodium [Moles/Vol] 139 mmol/L 133-145 [facility] Total proteinOrdered By: Agapito Merritt on 11-29-2024 Protein [Mass/Vol] 6.6 g/dL 5.9-8.4 [facility] White blood cell (WBC) count Ordered By: Shailesh Merritt on 11-29-2024 WBC (Bld) [#/Vol] 7.9 10*3/uL 4.4-11.0 [facility] 10-16-2024 CNPN Telephone (AGGENS3) ----- AGUEDA LEWIS ([id number]) 1995 F Date Time Provider Department 10/16/24 PARAMJIT ROBERTSON AGGENS3 During your visit today, [...] also see in her chart that her photocopying machine operator has been attempting to reach her regarding her clearance. They have also made multiple attempts including mailing her a letter to let her know they'd clear her if she has the EKG they ordered. Per [facility], she never had this done. I am postponing the patient's surgery. She will need to call the office when she is ready to proceed. Allergies As of Date: 10/16/2024 (No Known Allergies) Date Reviewed: 10/16/2024 Reviewed by: Astrid Garcia, RN - Fully Assessed Reason for Visit: Surgery Cancelled [3137] Cmt: Re: Lap Malissa 10/17/2024 Prescriptions as of 10/16/2024 - QUEtiapine [...] by JAN DRAKE on 10/16/24 [facility] CNCRajwinder 10-02-2024 CNCO Letter Text [facility] CNPPauly 09-26-2024 CNPN Telephone (AGCARDPOB ) ----- AGUEDA LEWIS ([id number]) 1995 F Date Time Provider Department 09/26/24 [...] cardiomyopathy [Z82.49] Order(s):ECG COMPLETE [ECG01] Order #: [id number] FUTURE Prescriptions as of 10/02/2024 - QUEtiapine [...] Encounter Status:Closed by ORESTES HEATH on 09/30/24 [facility] CNPNon 08-21-2024 CNPN Telephone (AGCARDPOB ) ----- AGUEDA LEWIS ([id number]) 1995 F Date Time Provider Department 08/21/24 [...] by NAE RAMOS on 08/21/24 [facility] CNCOon 08-20-2024 CNCO Letter Text [facility] CNOVon 08-01-2024 CNOV Office Visit (UCWSTR ) ----- GIOVANNYAGUEDA R ([id number]) 1995 F Date Time Provider Department 08/01/24 11:00 AM [facility] During your visit today, we [...] is alert. Comments: Normal strength in hand mica patcher, pincer grasp, and finger abduction. ASSESSMENT/PLAN: 1. [...] GENERAL 3V OR MORE AP/TRUE AP/OTHER LEFT [4068864] Order #: [id number] FUTURE CONSULT TO ORTHOPAEDICS [9026] Order #: [id number]: 1 FUTURE ibuprofen (MOTRIN) 600 mg tabletTake [...] 10 days. (more content not included)... Normal [facility] XR SHLDR >/=3V AP/JOSUE AP/OTH R [...] Negative 3 views of the left shoulder. Java Engineer: [facility] Transcribe Date/Time: Aug 01 2024 11:41A Dictated by : PRISCILLA GOODRICH MD This examination was interpreted and the report reviewed and electronically signed by: PRISCILLA GOODRICH MD on Aug 01 2024 11:45AM EST [id number] Normal [facility] XR Shoulder - left 3 Viewson 08-01-2024 IMPRESSION: Negative 3 views of the left shoulder. Java Engineer: [employer] Transcribe Date/Time: Aug 01 2024 11:41A Dictated [...] soft tissue swelling. DIVISION OF RADIOLOGY Provider, Virgie Haro dixon [place] - 08/01/2024 * * *Final Report* * [...] Negative 3 views of the left shoulder. Java Engineer: AMIE Transcribe Date/Time: Aug 01 2024 11:41A Dictated by : PRISCILLA GOODRICH MD This examination was interpreted and the report reviewed and electronically signed by: PRISCILLA GOODRICH MD on Aug 01 2024 11:45AM [facility] Radiology Study observation (narrative) [facility] XR Shoulder - left 3 ViewsOr dered By: Cc Provider on 08-01-2024 [facility] CNOVon 07-08-2024 CNOV Office Visit (QUENTIN 3) ----- AGUEDA LEWIS ([id number]) 1995 F Date Time Provider Department 07/08/24 3:00 PM PARAMJIT ROBERTSON3 During your visit today, we recorded the following information about you: Pulse Respiration Blood pressure Weight 77/minute 20/minute 116/71 121.6 kg Height 1.803 m Paramjit Robertson MD 07/08/2024 4:50 PM Signed Agueda Lewis is a 29 year old female who is here for reevaluation. We last saw her about a year ago and at that point recommended a cholecystectomy. She reported having some cardiac issues and went to see a photocopying machine operator. She represents today for reevaluation [...] 4 - Moderate Paramjit Robertson M.D., F.A.C.S. Ailyn, Paramjit Segura MD 07/08/2024 3:20 PM Signed [...] gas (more content not included)... Normal [facility] US [facility] 06-17-2024 Indication irregular menses [...] Read By: Carey Reyes M.D. MATERNAL MEDICINE [facility] US Pelvison 06-14-2024 Radiology Study observation (narrative) [facility] CNOVon 06-03-2024 CNOV Office Visit (OBGYWM ) ----- AGUEDA LEWIS ([id number]) 1995 F Date Time Provider Department 06/03/24 3:30 PM ЕЛЕНА KIM OBGYWM During your visit today, we recorded the following information about you: Blood pressure Weight Height Last Period 122/68 121.7 kg 1.788 m 04/24/24 Елена Kim APRN.CLOTHING CONSULTANT 06/03/2024 3:22 PM Signed Patient declined track supervisorMarko burris is a 29 year old who presents [...] L2 SAB0 IAB0 Ectopic0 Multiple0 Live Births2 Billet Heater History LMP: 04/24/2024 (Exact Date), Having periods Age at Menarche: Age at First : Age at Menopause: Billet Heater History Comments: Sexual Activity: Yes; Male Contraception: [...] status: current everyday user Substances: Flavoring Devices: [employer]ble tank Substance Use Topics Alcohol use: No [...] discussed with the Patient or Patient's Authorized Radial Drill Press Set Up Operator. As applicable, any other physician, advance practice provider, medical student, or other health professional student that will be observing or involved in the sensitive examination for educational or training purposes was discussed with the Patient or Authorized Radial Drill Press Set Up Operator. The Patient or Authorized Radial Drill Press Set Up Operator has agreed to proceed with the sensitive [...] external genitalia normal, normal Bartholin's glands, urethra, [place]'s glands, no vulvar lesions, no cervical lesions, [...] PCOS panel (more content not included)... Normal [facility] DHEA-S [facility] 06-03-2024 DHEA-S [Mass/Vol] 183.5 ug/dL Normal 98.8-340.0 [facility] Comment on above: Order Comment: Speci men Type: BLOOD SPECIMENOrdering Facility: [facility] Address: [address] [place] [address] Result Comment: Refe rence ranges are age and gender specific. For additional information, reference range tables can be found in the laboratory test directory. The normal values are based on the following source: Dehydroepiandrosterone sulfate (DHEA S) [package insert V 17.0 [place]]. [employer] [facility], [place], [place]: December 2012. Performed By: #### 1 0501-5, 64972-3, 2243-4, DHEAS ####[facility] LABCLIA [id number] [place] [address] [place] Estradiol SerPl-mCncon 06-03 E2 [Mass/Vol] 101 pg/mL Normal [facility] Comment on above: Order Comment: Speci men Type: BLOOD SPECIMENOrdering Facility: [facility] Address: [address] [place] [address] Result Comment: This test is not suitable [...] 3243 pg/mL Second trimester : 1561 to 43186 pg/mL Third trimester : 8285 to >09264 pg/mL Post-menopausal Estradiol reference range: < 41 pg/mL Reference: 1. Estradiol - E2 (Estradiol III) [package insert V 3.0 [place]ian]. [facility], [place], [place], October 2015. Performed By: #### 1 0501-5, 01392-7, 2243-4, DHEAS ####[facility] [facility] [id number] [place] [id number] [place] FSH SerPl-aCncon 06-03-2024 Follitropin Qn 3.9 m[IU]/mL Normal See comment [facility] Comment on above: Order Comment: Speci men Type: BLOOD SPECIMENOrdering Facility: [facility] Address: [address] [place] [address] Result Comment: Refe rence range: Follicular: 3.5-12.5 mIU/mL Ovulation: 4.7-21.5 mIU/mL Luteal: 1.7-7.7 mIU/mL Postmenopausal: 25.8-134.8 mIU/mL Performed By: #### 1 0501-5, 10668-1, 2243-4, DHEAS ####[facility] LABCLIA [id number] [place] [address] [place] HIGH RISK HUMAN PAPILLOMA WILBUR (HPV), PCR FOR DETECTION AND GENOTYPINGon 06-03-2024 HPV 16 Ag Ql (Unsp spec) Not detected Normal Not detected [facility] Comment on above: Order Comment: Speci men Type: FLUID SPECIMENOrdering Facility: [facility] Address: [address] [place] [address] Performed By: #### H PVHRT ####[facility] LABCLIA [id number] [place] [address] [place] HPV 18 Ag Ql (Unsp spec) Not detected Normal Not detected [facility] Comment on above: Order Comment: Speci men Type: FLUID SPECIMENOrdering Facility: [facility] Address: [address] [place] [address] Performed By: #### H PVHRT ####[facility] LABCLIA [id number] [place] [address] [place] HPV 31+33+35+39+45+51+52+5 6+58+59+66+68 DNA ELHAM+probe Ql (Cvx) Not detected Normal Not detected [facility] Comment on above: Order Comment: Speci men Type: FLUID SPECIMENOrdering Facility: [facility] Address: [address] [place] [address] Result Comment: High Risk HPV Other Type includes HPV types 31, 33, 35, 39, 45, 51, 52, 56, 58, 59, 66 and 68. Performed By: #### H PVHRT ####[facility] LABCLIA [id number] [place] [address] [place] HYDROXYPROGESTERONE-17on 17-HYDROXYPROGESTERONE QUANTITATIVE BY HPLC-MS/MS, SERUM OR PLASMA 129.60 ng/dL Normal <=206.00 [facility] Comment on above: Order Comment: Speci men Type: BLOOD SPECIMENOrdering Facility: [facility] Address: [address] [place] [address] Result Comment: INTERPRETIVE INFORMATION for 17-Hydroxyprogesterone in females: Follicular 15 to 70 ng/dL Luteal 35 to 290 ng/dL REFERENCE INTERVAL: 17-Hydroxyprogesterone Qnt, HPLC-MS/MS Access complete set of age- and/or gender-specific reference intervals for this test in the [facility] Test Directory ([employer]). This test was developed and its performance characteristics determined by [facility]. It has not been cleared or approved by the [place] Food and Drug Administration. This test was performed in a CLIA certified laboratory and is intended for clinical purposes. Performed By: [facility] [address] [place] [address] Aircraft Detail Draftsperson: Victor M Zapata MD, PhD CLIA Number: [id number] Performed By: #### H PROG ####[facility] [id number] [place] [address] HbA1c (Bld)on 06-03-2024 Average glucose Estimated from glycated hemoglobin (Bld) [Mass/Vol] 108 mg/dL Normal [facility] Comment on above: Order Comment: Speci men Type: BLOOD SPECIMENOrdering Facility: [facility] Address: [address] [place] [address] Result Comment: eAG: (Estimated average glucose) is a calculated value from HgbA1c and is phone representative of the average blood glucose level in the last 2-3 month period. Performed By: #### 5 5454-3 ####[facility] LABCLIA [id number] [place] [address] [place] HbA1c (Bld) [Mass fraction] 5.4 % Normal 4.3-5.6 [facility] Comment on above: Order Comment: Speci men Type: BLOOD SPECIMENOrdering Facility: [facility] Address: [address] [place] [address] Result Comment: Amer [place] Diabetes Association guidelines indicate that patients with HgbA1c in the range 5.7-6.4% are at increased risk for development of diabetes, and intervention by lifestyle modification may be beneficial. HgbA1c greater or equal to 6.5% is considered diagnostic of diabetes. Performed By: #### 5 5454-3 ####[facility] LABCLIA [id number] [place] [address] [place] LH SerPl-aCncon 06-03-2024 Lutropin Qn 8.2 m[IU]/mL Normal See comment [facility] Comment on above: Order Comment: Speci men Type: BLOOD SPECIMENOrdering Facility: [facility] Address: [address] [place] [address] Result Comment: Refe rence range: Follicular: 2.4-12.6 mIU/mL Midcycle: 14.0-95.6 mIU/mL Luteal: 1.0-11.4 mIU/mL Post Leslie: 7.7-58.5 mIU/mL Performed By: #### 1 0501-5, 24425-7, 2243-4, DHEAS ####[facility] LABCLIA [id number] [place] [address] [place] PAP TESTon 06-03-2024 ADEQUACY Satisfactory for interpretation. Normal [facility] Comment on above: Order Comment: Speci men Type: FLUID SPECIMENOrdering Facility: [facility] Address: [address] [place] [address] Performed By: #### L [id number] ####[facility] LABCLIA [id number] [place] [address] [place] CASE REPORT Normal [facility] Comment on above: Order Comment: Speci men Type: FLUID SPECIMENOrdering Facility: [facility] Address: [address] [place] [address] Result Comment: Gyne cologic Cytology Report Case: [id number] Authorizing Provider: Елена Kim APRN.CLOTHING CONSULTANT Collected: 06/03/2024 03:14 PM Ordering Location: OB/Gynecology Received: 06/03/2024 04:33 PM First Screen: Natalie, Reva, CT, ASCP Specimen: Pap Test, ThinPrep, Cervix Performed By: #### L [id number] ####[facility] LABCLIA [id number] [place] [address] [place] CLINICAL HISTORY, CYTOLOGY, PERIPHERAL VASCULAR TECH Routine Exam Normal [facility] Comment on above: Order Comment: Speci men Type: FLUID SPECIMENOrdering Facility: [facility] Address: [address] [place] [address] Performed By: #### L [id number] ####[facility] LABCLIA [id number] [place] [address] [place] CYTOLOGY PAP OTHER INTERPRETATION Trichomonas vaginalis. Normal [facility] Comment on above: Order Comment: Speci men Type: FLUID SPECIMENOrdering Facility: [facility] Address: [address] [place] [address] Performed By: #### L [id number] ####[facility] LABCLIA [id number] [place] [address] [place] FINAL PERFORMING LAB Normal [facility] Comment on above: Order Comment: Speci men Type: FLUID SPECIMENOrdering Facility: [facility] Address: [address] [place] [address] Result Comment: Tech nical component, supervisor anodizing screening performed at [facility], [address] [place] [address] CLIA# [id number] Diagnostic interpretation performed at [facility], [address] [place] [address] CLIA# [id number] Aircraft Detail Draftsperson: Jose Perrin M.D. Performed By: #### L [id number] ####[facility] LABCLIA [id number] [address] [address] [place] INTERPRETATION, CYTOLOGY, PERIPHERAL VASCULAR TECH Normal [facility] Comment on above: Order Comment: Speci men Type: FLUID SPECIMENOrdering Facility: [facility] Address: [address] [place] [address] Result Comment: Nega tive for intraepithelial lesion or malignancy. Performed By: #### L [id number] ####[facility] LABCLIA [id number] [place] [address] [place] LMP 04/24/2024 Normal [facility] Comment on above: Order Comment: Speci men Type: FLUID SPECIMENOrdering Facility: [facility] Address: [address] [place] [address] Performed By: #### L [id number] ####[facility] LABIA [id number] [place] [address] [place] PAP DISCLAIMER COMMENT The Pap Smear is a screening test for cervical cancer. False negative results occur with all screening tests, emphasizing the need for rescreening at recommended intervals, and clinical correlation. Normal [facility] Comment on above: Order Comment: Speci men Type: FLUID SPECIMENOrdering Facility: [facility] Address: [address] [place] [address] Performed By: #### L [id number] ####[facility] LABIA [id number] [address] [address] [place] PAP HEALTH CARE RECRUITER COMMENT This specimen has be en analyzed by the ThinPrep Imaging System, an automated imaging and review system, which assists the laboratory in evaluating cells on ThinPrep Pap tests. Following automated imaging, selected muller from every slide are reviewed by a supervisor anodizing. Normal [facility] Comment on above: Order Comment: Speci men Type: FLUID SPECIMENOrdering Facility: [facility] Address: [address] [place] [address] Performed By: #### L [id number] ####[facility] LABCLIA [id number] [place] [address] [place] Prolactin SerPl-mCncon 06-03 Prolactin [Mass/Vol] 11.7 ng/mL Normal 4.4-33.8 [facility] Comment on above: Order Comment: Speci men Type: BLOOD SPECIMENOrdering Facility: [facility] Address: [address] [place] [address] Result Comment: Prol actin test is performed using the [employer] Electrochemiluminescence Immunoassay method. Results obtained with different methods or kits cannot be used interchangeably. Performed By: #### 2 842-3, 3016-3 ####[facility] LABCLIA [id number] [place] [address] [place] TESTOSTERONE, FREE AND TOTAL , BY EQUILIBRIUM ULTRAFILTRATION MASS SPECTROMETRYon 06-03-2024 Testosterone [Mass/Vol] 31.4 ng/dL Normal 10.0-55.0 [facility] Comment on above: Order Comment: Speci men Type: BLOOD SPECIMENOrdering Facility: [facility] Address: [address] [place] [address] Performed By: #### T FTEST ####[facility] LABCLIA [id number] [place] [address] Testosterone Free [Mass/Vol] 0.53 ng/dL Normal 0.10-0.85 [facility] Comment on above: Order Comment: Speci men Type: BLOOD SPECIMENOrdering Facility: [facility] Address: [address] [place] [address] Performed By: #### T FTEST ####[facility] LABCLIA [id number] [place] [address] Testosterone Free/Testosterone.tota l [Mass fraction] 1.69 % Normal 0.50-2.80 [facility] Comment on above: Order Comment: Speci men Type: BLOOD SPECIMENOrdering Facility: [facility] Address: [address] [place] [address] Performed By: #### T FTEST ####[facility] LABCLIA [id number] [place] [address] TSH Marija 06-03-2024 TSH Qn 1.030 m[IU]/L Normal 0.270-4.200 [facility] Comment on above: Order Comment: Speci men Type: BLOOD SPECIMENOrdering Facility: [facility] Address: [address] [place] [address] Result Comment: If t he patient is , TSH reference range varies by gestational period: First Trimester (weeks 9-12): 0.180-2.990 mIU/L Second Trimester: 0.110-3.980 mIU/L Third Trimester: 0.480-4.710 mIU/L Lonnie Wynn et al. A Practical Approach for the Verifications and Determination of Site- and Trimester-Specific Reference Intervals for Thyroid Function tests in . Thyroid, 2019:29:3:412-420. Gee Zapata, et al. 2017 Guidelines of the [place] Thyroid Association for the Diagnosis and Management of Thyroid Disease during and the . Thyroid, 2017:27:3:315-389. Performed By: #### 2 842-3, 3016-3 ####[facility] LABCLIA [id number] [place] [address] [place] Darlyn 04-25-2024 CNPN Telephone (AGCARK) ----- AGUEDA LEWIS ([id number]) 1995 F Date Time Provider Department 04/25/24 [...] Chest pain [R07.9] 08/14/2023 Encounter Status:Closed by CHIRSTINE LEMON on 04/25/24 [facility] ECHOon 04-23-2024 CONCLUSIONS: - Technically difficult [...] [facility] Echocardiography Report: Transthoracic Echo [facility] Date of service: 04/23/2024 12:42:52 PM [facility] Ordering physician: ORESTES HEATH Indication: Family [...] no pericardial effusion. [facility] Echocardiography Echocardiography Rep ort: Transthoracic Echo [facility] Date of service: 04/23/2024 12:42:52 PM [facility] Ordering physician: ORESTES HEATH Indication: Family [...] * * * Final * * * [facility] [employer] [facility] Image : [id number] [facility] Progress Noteon 04-04-2024 Progress Note Chart reviewed of ED follow up Seen in [facility] ED on 04/03/24 Reason: Chest pain Discharge instructions: Follow up with your primary care physician Attempted to call patient. Message said number is not available. No voice mail option. ED message and education sent via [facility] Basic metabolic 2000 panelon 04-03-2024 Anion gap [Moles/Vol] 8 mmol/L Normal 8-15 [facility] Comment on above: Order Comment: Speci men Type: BLOOD SPECIMENOrdering Facility: [facility] Address: [address] [place] [address] Performed By: #### 1 9123-9, 93113-5 ####[facility] LABORATORYCLIA [id number] [place] [address] [facility] LAY Calcium [Mass/Vol] 9.5 mg/dL Normal 8.5-10.2 [facility] Comment on above: Order Comment: Speci men Type: BLOOD SPECIMENOrdering Facility: [facility] Address: [address] [place] [address] Performed By: #### 1 9123-9, 84685-1 ####[facility] LABORATORYCLIA [id number] [place] [address] [place] Chloride [Moles/Vol] 103 mmol/L Normal 98-107 [facility] Comment on above: Order Comment: Speci men Type: BLOOD SPECIMENOrdering Facility: [facility] Address: [address] [place] [address] Performed By: #### 1 9123-9, 39384-7 ####[facility] LABORATORYCLIA [id number] [address] STATES OF [facility] CO2 [Moles/Vol] 25 mmol/L Normal 22-30 [facility] Comment on above: Order Comment: Speci men Type: BLOOD SPECIMENOrdering Facility: [facility] Address: [address] [place] [address] Performed By: #### 1 9123-9, 57333-7 ####[facility] LABORATORYCLIA [id number] [address] [place] Creatinine [Mass/Vol] 0.94 mg/dL Normal 0.58-0.96 [facility] Comment on above: Order Comment: Speci men Type: BLOOD SPECIMENOrdering Facility: [facility] Address: [address] [place] [address] Performed By: #### 1 9123-9, 39409-6 ####[facility] LABORATORYCLIA [id number] [address] Creatinine and Glomerular filtration rate.predicted panel (S/P/Bld) 84 mL/min/1.73m??? Normal >=60 [facility] Comment on above: Order Comment: Speci men Type: BLOOD SPECIMENOrdering Facility: [facility] Address: [address] [place] [address] Result Comment: Makayla mated Glomerular Filtration Rate [...] actual GFR. Performed By: #### 1 9123-9, 37399-6 ####[facility] LABORATORYCLIA [id number] [place] [address] [place] Glucose [Mass/Vol] 107 mg/dL High 74-99 [facility] Comment on above: Order Comment: Vanessa echavarria Type: BLOOD SPECIMENOrdering Facility: [facility] Address: [address] [place] [address] Result Comment: The [place] Diabetes Association (ADA) provides guidance for cutoff [...] Standards of Medical Care in Diabetes 2016, [place] Diabetes Association. Diabetes Care. 2016.39(Suppl 1). Performed By: #### 1 9123-9, 01749-6 ####[facility] LABORATORYCLIA [id number] [place] [address] [place] Potassium [Moles/Vol] 4.4 mmol/L Normal 3.7-5.1 [facility] Comment on above: Order Comment: Vanessa echavarria Type: BLOOD SPECIMENOrdering Facility: [facility] Address: [address] [place] [address] Performed By: #### 1 9123-9, 64648-2 ####[facility] LABORATORYCLIA [id number] [address] STATES OF [facility] Sodium [Moles/Vol] 136 mmol/L Normal 136-144 [facility] Comment on above: Order Comment: Speci men Type: BLOOD SPECIMENOrdering Facility: [facility] Address: [address] [place] [address] Performed By: #### 1 9123-9, 87916-0 ####[facility] LABORATORYCLIA [id number] [address] [place] Urea nitrogen [Mass/Vol] 9 mg/dL Normal 7-21 [facility] Comment on above: Order Comment: Speci men Type: BLOOD SPECIMENOrdering Facility: [facility] Address: [address] [place] [address] Performed By: #### 1 9123-9, 24856-7 ####[facility] LABORATORYCLIA [id number] [address] STATES [facility] CBC W Auto Differential pane l (Bld)on 04-03-2024 Basophils (Bld) [#/Vol] 0.04 10*3/uL Normal <0.11 [facility] Comment on above: Order Comment: Speci men Type: BLOOD SPECIMENOrdering Facility: [facility] Address: [address] [place] [address] Performed By: #### 5 7021-8 ####[facility] LABORATORYCLIA [id number] [address] STATES [facility] Basophils/100 WBC (Bld) 0.5 % Normal [facility] Comment on above: Order Comment: Speci men Type: BLOOD SPECIMENOrdering Facility: [facility] Address: [address] [place] [address] Performed By: #### 5 7021-8 ####[facility] LABORATORYCLIA [id number] [address] STATES [facility] Differential cell count method Nom (Bld) Auto Normal [facility] Comment on above: Order Comment: Speci men Type: BLOOD SPECIMENOrdering Facility: [facility] Address: [address] [place] [address] Performed By: #### 5 7021-8 ####[facility]ORATORYCLIA [id number] [address] OF [facility] Eosinophils (Bld) [#/Vol] 0.07 10*3/uL Normal <0.46 [facility] Comment on above: Order Comment: Speci men Type: BLOOD SPECIMENOrdering Facility: [facility] Address: [address] [place] [address] Performed By: #### 5 7021-8 ####[facility]ORATORYCLIA [id number] [address] Eosinophils/100 WBC (Bld) 0.9 % Normal [facility] Comment on above: Order Comment: Speci men Type: BLOOD SPECIMENOrdering Facility: [facility] Address: [address] [place] [address] Performed By: #### 5 7021-8 ####[facility]ORATORYCLIA [id number] [address] Erythrocyte distribution width (RBC) [Ratio] 13.7 % Normal 11.5-15.0 [facility] Comment on above: Order Comment: Speci men Type: BLOOD SPECIMENOrdering Facility: [facility] Address: [address] [place] [address] Performed By: #### 5 7021-8 ####[facility]ORATORYCLIA [id number] [address] Hematocrit (Bld) [Volume fraction] 37.4 % Normal 36.0-46.0 [facility] Comment on above: Order Comment: Speci men Type: BLOOD SPECIMENOrdering Facility: [facility] Address: [address] [place] [address] Performed By: #### 5 7021-8 ####[facility]ORATORYCLIA [id number] [address] [place] Hemoglobin (Bld) [Mass/Vol] 11.7 g/dL Normal 11.5-15.5 [facility] Comment on above: Order Comment: Speci men Type: BLOOD SPECIMENOrdering Facility: [facility] Address: [address] [place] [address] Performed By: #### 5 7021-8 ####[facility] LABORATORYCLIA [id number] [address] Immature granulocytes (Bld) [#/Vol] 0.04 10*3/uL Normal <0.10 [facility] Comment on above: Order Comment: Speci men Type: BLOOD SPECIMENOrdering Facility: [facility] Address: [address] [place] [address] Performed By: #### 5 7021-8 ####[facility] LABORATORYCLIA [id number] [address] Immature granulocytes/100 WBC (Bld) 0.5 % Normal [facility] Comment on above: Order Comment: Speci men Type: BLOOD SPECIMENOrdering Facility: [facility] Address: [address] [place] [address] Performed By: #### 5 7021-8 ####[facility] LABORATORYCLIA [id number] [address] Lymphocytes (Bld) [#/Vol] 1.14 10*3/uL Normal 1.00-4.00 [facility] Comment on above: Order Comment: Speci men Type: BLOOD SPECIMENOrdering Facility: [facility] Address: [address] [place] [address] Performed By: #### 5 7021-8 ####[facility] LABORATORYCLIA [id number] [address] Lymphocytes/100 WBC (Bld) 14.0 % Normal [facility] Comment on above: Order Comment: Speci men Type: BLOOD SPECIMENOrdering Facility: [facility] Address: [address] [place] [address] Performed By: #### 5 7021-8 ####[facility]ORATORYCLIA [id number] [address] OF [place] MCH (RBC) [Entitic mass] 26.5 pg Normal 26.0-34.0 [facility] Comment on above: Order Comment: Speci men Type: BLOOD SPECIMENOrdering Facility: [facility] Address: [address] [place] [address] Performed By: #### 5 7021-8 ####[facility] LABORATORYCLIA [id number] [address] [place] MCHC (RBC) [Mass/Vol] 31.3 g/dL Normal 30.5-36.0 [facility] Comment on above: Order Comment: Speci men Type: BLOOD SPECIMENOrdering Facility: [facility] Address: [address] [place] [address] Performed By: #### 5 7021-8 ####[facility] LABORATORYCLIA [id number] [address] [place] MCV (RBC) [Entitic vol] 84.8 fL Normal 80.0-100.0 [facility] Comment on above: Order Comment: Speci men Type: BLOOD SPECIMENOrdering Facility: [facility] Address: [address] [place] [address] Performed By: #### 5 7021-8 ####[facility] LABORATORYCLIA [id number] [address] OF [facility] Monocytes (Bld) [#/Vol] 0.55 10*3/uL Normal <0.87 [facility] Comment on above: Order Comment: Speci men Type: BLOOD SPECIMENOrdering Facility: [facility] Address: [address] [place] [address] Performed By: #### 5 7021-8 ####[facility]ORATORYCLIA [id number] [address] Monocytes/100 WBC (Bld) 6.8 % Normal [facility] Comment on above: Order Comment: Speci men Type: BLOOD SPECIMENOrdering Facility: [facility] Address: [address] [place] [address] Performed By: #### 5 7021-8 ####[facility] LABORATORYCLIA [id number] [place] [address] [place] Neutrophils (Bld) [#/Vol] 6.28 10*3/uL Normal 1.45-7.50 [facility] Comment on above: Order Comment: Speci men Type: BLOOD SPECIMENOrdering Facility: [facility] Address: [address] [place] [address] Performed By: #### 5 7021-8 ####[facility]ORATORYCLIA [id number] [address] [place] Neutrophils/100 WBC (Bld) 77.3 % Normal [facility] Comment on above: Order Comment: Speci men Type: BLOOD SPECIMENOrdering Facility: [facility] Address: [address] [place] [address] Performed By: #### 5 7021-8 ####[facility]ORATORYCLIA [id number] [employer], [place] [address] [place] Nucleated RBC (Bld) [#/Vol] 10*3/uL Normal <0.01 [facility] Comment on above: Order Comment: Speci men Type: BLOOD SPECIMENOrdering Facility: [facility] Address: [address] [place] [address] Performed By: #### 5 7021-8 ####[facility] LABORATORYCLIA [id number] [address] [place] Nucleated RBC/100 WBC (Bld) [Ratio] 0.0 /[address] [facility] Comment on above: Order Comment: Speci men Type: BLOOD SPECIMENOrdering Facility: [facility] Address: [address] [place] [address] Performed By: #### 5 7021-8 ####[facility] LAB[facility]ATORYCLIA [id number] [address] [place] Platelet mean volume (Bld) [Entitic vol] 10.4 fL Normal 9.0-12.7 [facility] Comment on above: Order Comment: Speci men Type: BLOOD SPECIMENOrdering Facility: [facility] Address: [address] [place] [address] Performed By: #### 5 7021-8 ####[facility] LAB[facility]ATORYCLIA [id number] [address] Platelets (Bld) [#/Vol] 333 10*3/uL Normal 150-400 [facility] Comment on above: Order Comment: Speci men Type: BLOOD SPECIMENOrdering Facility: [facility] Address: [address] [place] [address] Performed By: #### 5 7021-8 ####[facility]ATORYCLIA [id number] [address] RBC (Bld) [#/Vol] 4.41 10*6/uL Normal 3.90-5.20 [facility] Comment on above: Order Comment: Speci men Type: BLOOD SPECIMENOrdering Facility: [facility] Address: [address] [place] [address] Performed By: #### 5 7021-8 ####[facility]ATORYCLIA [id number] [address] WBC (Bld) [#/Vol] 8.12 10*3/uL Normal 3.70-11.00 [facility] Comment on above: Order Comment: Speci men Type: BLOOD SPECIMENOrdering Facility: [facility] Address: [address] [place] [address] Performed By: #### 5 7021-8 ####[facility]ORATORYCLIA [id number] [address] ECG COMPLETEon 04-03-2024 ECG COMPLETE Ventricular Rate : 8 5 BPM Atrial Rate : 85 BPM P-R Interval : 162 ms QRS Duration : 76 ms Q-T Interval : 354 ms QTC Calculation(Bazett) : 421 ms Calculated P [place] : 65 degrees Calculated R [place] : 22 degrees Calculated T [place] : 33 degrees NORMAL SINUS RHYTHM NORMAL ECG NO PREVIOUS ECGS AVAILABLE Confirmed by PAMELA FRAGOSO, BRENNA ([id number]) on 10/11/2024 11:20:25 PM NAME : AGUEDA LEWIS PID : [id number] : 1995 Gender : Female Race : ORD : [id number] Procedure Date : Apr 03 2024 13:28:54 Edit Date : Oct 11 2024 23:20:30 Diagnosis: NORMAL SINUS RHYTHM NORMAL ECG NO PREVIOUS ECGS AVAILABLE Confirmed by BRENNA SANTIAGO MD ([id number]) on 10/11/2024 11:20:25 PM Test Reason : Chest Pain Location : 4 : [facility] Overread By : BRENNA SANTIAGO MD Edited By : BRENNA SANTIAGO MD Referred By : , Acquired by : BRAXTON SORIANO [facility] ED NOTEon 04-03-2024 ED NOTE HNO ID: [id number] Author: MINDY VICTORIA RN Service: ? Author Type: Registered Nurse Type: ED Notes Filed: 04/03/2024 13:36 Note Text: XR notified [facility] ED PROV NOTEon 04-03-2024 ED PROV NOTE HNO ID: [id number] Author: BUDDY HOPKINS MD Service: Emergency Medicine [...] Final Result IMPRESSION: No acute radiographic abnormality. Java Engineer: PSCB Transcribe Date/Time: Apr 03 2024 2:20P [...] Vital (more content not included)... Normal [facility] ED Triage Noteon 04-03-2024 ED Triage Note HNO ID: [id number] Author: STEFFANY NICOLE APRN.CHRISTINE Service: Emergency Medicine Author Type: Nurse Practitioner [...] URINE EKG STAT EKG SIGNATURE: Steffany Nicole APRN.CLOTHING CONSULTANT Normal [facility] HCG Preg Ur Qlon 04-03-2024 HCG ( test) Ql (U) Negative Normal Negative [facility] Comment on above: Order Comment: Vanessa echavarria Type: URINE SPECIMEN [facility] Address: [address] [place] [address] Result Comment: This test is intended to aid in the early detection of . Very dilute urine samples, as indicated by a low specific gravity, may not contain phone representative levels of hCG. This test detects [...] . Performed By: #### 2 106-3 #### [facility] CLIA [id number] [address] [place] [address] [place] HIGH SENSITIVITY TROPONIN T (INITIAL)on 04-03-2024 Troponin T.cardiac High sensitivity method [Mass/Vol] <6 Normal <12 [facility] Comment on above: Order Comment: Vanessa echavarria Type: BLOOD SPECIMENOrdering Facility: [facility] Address: [address] [place] [address] Performed By: #### L [id number] ####[facility]ORATORYCLIA [id number] [address] [place] HIGH SENSITIVITY TROPONIN T (SECOND)on 04-03-2024 Troponin T.cardiac High sensitivity method [Mass/Vol] <6 Normal <12 [facility] Comment on above: Order Comment: Vanessa echavarria Type: BLOOD SPECIMENOrdering Facility: [facility] Address: [address] [place] [address] Performed By: #### L [id number] ####[facility] LABORATORYCLIA [id number] [address] OF [facility] Magnesium SerPl-mCncon 04-03 Magnesium [Mass/Vol] 1.8 mg/dL Normal 1.7-2.3 [facility] Comment on above: Order Comment: Speci men Type: BLOOD SPECIMENOrdering Facility: [facility] Address: [address] [place] [address] Performed By: #### 1 9123-9, 36312-6 ####[facility]ORATORYCLIA [id number] [address] Urinalysis complete panel (U )on 04-03-2024 Bacteria LM.HPF (Urine sed) [#/Area] Moderate Abnormal None Seen [facility] Comment on above: Order Comment: Speci men Type: URINE SPECIMENOrdering Facility: [facility] Address: [address] [place] [address] Performed By: #### 2 4356-8 ####[facility] [id number] [address] Bilirubin Ql (U) Negative Normal Negative [facility] Comment on above: Order Comment: Speci men Type: URINE SPECIMENOrdering Facility: [facility] Address: [address] [place] [address] Performed By: #### 2 4356-8 ####[facility]ORATORYCLIA [id number] [address] Clarity (Unsp spec) Turbid Abnormal Clear [facility] Comment on above: Order Comment: Speci men Type: URINE SPECIMENOrdering Facility: [facility] Address: [address] [place] [address] Performed By: #### 2 4356-8 ####[facility] LABORATORYCLIA [id number] [address] Color (U) Yellow Normal yellow [facility] Comment on above: Order Comment: Speci men Type: URINE SPECIMENOrdering Facility: [facility] Address: [address] [place] [address] Performed By: #### 2 4356-8 ####[facility]ORATORYCLIA [id number] [address] [place] Epithelial cells LM.HPF (Urine sed) [#/Area] Few Normal [facility] Comment on above: Order Comment: Speci men Type: URINE SPECIMENOrdering Facility: [facility] Address: [address] [place] [address] Performed By: #### 2 4356-8 ####[facility]ORATORYCLIA [id number] [address] Glucose Test strip (U) [Mass/Vol] Negative Normal Trace, Negative [facility] Comment on above: Order Comment: Speci men Type: URINE SPECIMENOrdering Facility: [facility] Address: [address] [place] [address] Performed By: #### 2 4356-8 ####[facility] LABORATORYCLIA [id number] [place] [address] [place] Hemoglobin Ql (U) Negative Normal Negative, Trace [facility] Comment on above: Order Comment: Speci men Type: URINE SPECIMENOrdering Facility: [facility] Address: [address] [place] [address] Performed By: #### 2 4356-8 ####[facility]ORATORYCLIA [id number] [place] [address] [place] Hyaline casts (Urine sed) [#/Area] 4-10 /LPF Abnormal 0 /LPF [facility] Comment on above: Order Comment: Speci men Type: URINE SPECIMENOrdering Facility: [facility] Address: [address] [place] [address] Performed By: #### 2 4356-8 ####[facility] LABORATORYCLIA [id number] [place] [address] [place] Ketones Ql (U) Negative Normal Negative, Trace [facility] Comment on above: Order Comment: Speci men Type: URINE SPECIMENOrdering Facility: [facility] Address: [address] [place] [address] Performed By: #### 2 4356-8 ####[facility]ORATORYCLIA [id number] [address] STATES [facility] Leukocyte esterase Test strip Ql (U) Negative Normal Negative, 25 [place]/uL [facility] Comment on above: Order Comment: Speci men Type: URINE SPECIMENOrdering Facility: [facility] Address: [address] [place] [address] Performed By: #### 2 4356-8 ####[facility]ORATORYCLIA [id number] [address] STATES [facility] Nitrite Ql (U) 2+ Abnormal Negative [facility] Comment on above: Order Comment: Speci men Type: URINE SPECIMENOrdering Facility: [facility] Address: [address] [place] [address] Performed By: #### 2 4356-8 ####[facility]ORATORYCLIA [id number] [place] [address] [place] pH (U) 6.5 [pH] Normal 5.0-8.0 [facility] Comment on above: Order Comment: Speci men Type: URINE SPECIMENOrdering Facility: [facility] Address: [address] [place] [address] Performed By: #### 2 4356-8 ####[facility]ORATORYCLIA [id number] [address] Protein (U) [Mass/Vol] 1+ Abnormal Trace , Negative [facility] Comment on above: Order Comment: Speci men Type: URINE SPECIMENOrdering Facility: [facility] Address: [address] [place] [address] Performed By: #### 2 4356-8 ####[facility]ORATORYCLIA [id number] [place] [address] [place] RBC LM.HPF (Urine sed) [#/Area] 0-3 /HPF Normal 0-3 /HPF [facility] Comment on above: Order Comment: Speci men Type: URINE SPECIMENOrdering Facility: [facility] Address: [address] [place] [address] Performed By: #### 2 4356-8 ####[facility] LABORATORYCLIA [id number] [address] Specific gravity (U) [Rel density] 1.030 Normal 1.005-1.030 [facility] Comment on above: Order Comment: Speci men Type: URINE SPECIMENOrdering Facility: [facility] Address: [address] [place] [address] Performed By: #### 2 4356-8 ####[facility]ORATORYCLIA [id number] [address] Urobilinogen Ql (U) 1+ Abnormal Normal [facility] Comment on above: Order Comment: Speci men Type: URINE SPECIMENOrdering Facility: [facility] Address: [address] [place] [address] Performed By: #### 2 4356-8 ####[facility] LABORATORYCLIA [id number] [address] WBC LM.HPF (Urine sed) [#/Area] 0-5 /HPF Normal 0-5 /HPF [facility] Comment on above: Order Comment: Speci men Type: URINE SPECIMENOrdering Facility: [facility] Address: [address] [place] [address] Performed By: #### 2 4356-8 ####[facility] LABORATORYCLIA [id number] [address] [place] XR CHEST [...] tissues: Unremarkable. IMPRESSION: No acute radiographic abnormality. Java Engineer: AMIE Transcribe Date/Time: Apr 03 2024 2:20P Dictated by : VICTOR M FISCHER MD This examination was interpreted and the report reviewed and electronically signed by: VICTOR M FISCHER MD on Apr 03 2024 2:23PM EST [id number] Normal [facility] Progress Noteon 04-02-2024 Progress Note Chart reviewed of ED follow up Seen in [facility] ED on 03/29/2024 Reason: Abdominal pain-gallstones Discharge instructions: Follow-up with surgery. Patient has appointment scheduled with General Surgery on 04/11/24. [facility] message sent. [facility] 36on 04-01-2024 36 Spoke with patient a nd she is scheduled. DP [facility] 36 Please contact leo oden to schedule. [facility] 36on 03-29-2024 36 ED provider sonny ng appointment for patient to see a surgeon for biliary colic. ED provider advised that a message would be sent to management and that they will reach out to the patient on Monday to assist with scheduling. [facility] CBC W Auto Differential pane l (Bld)on 03-29-2024 Basophils (Bld) [#/Vol] 0 10*3/uL 0.0 - 0.2 10*3/uL [facility] Basophils/100 WBC (Bld) 0.4 % 0.0 - 2.0 % [facility] Eosinophils (Bld) [#/Vol] 0.1 10*3/uL 0.0 - 0.5 10*3/uL [facility] Eosinophils/100 WBC (Bld) 1.2 % 0.0 - 6.0 % [facility] Erythrocyte distribution width (RBC) [Ratio] 13.8 % 11.5 - 15.0 % [facility] Hematocrit (Bld) [Volume fraction] 39.9 % 35.0 - 47.0 % [facility] Hemoglobin (Bld) [Mass/Vol] 12.7 g/dL 11.7 - 16.0 g/dL [facility] Immature granulocytes (Bld) [#/Vol] 0 10*3/uL NINF - 0.1 10*3/uL [facility] Immature granulocytes/100 WBC (Bld) 0.2 % 0.0 - 2.0 % [facility] Interpretation and review of laboratory results Normal [facility] Lymphocytes (Bld) [#/Vol] 1.9 10*3/uL 1.0 - 4.3 10*3/uL [facility] Lymphocytes/100 WBC (Bld) 18.6 % 15.0 - 45.0 % [facility] MCH (RBC) [Entitic mass] 26.3 pg 26.0 - 34.0 pg [facility] MCHC (RBC) [Mass/Vol] 31.8 % 30.5 - 36.0 % [facility] MCV (RBC) [Entitic vol] 82.8 fL 77.0 - 99.0 fL [facility] Monocytes (Bld) [#/Vol] 0.9 10*3/uL 0.0 - 0.9 10*3/uL [facility] Monocytes/100 WBC (Bld) 8.5 % 5.0 - 13.0 % [facility] Neutrophils (Bld) [#/Vol] 7.1 10*3/uL 1.8 - 7.5 10*3/uL [facility] Neutrophils/100 WBC (Bld) 71.1 % 38.0 - 82.0 % [facility] Nucleated RBC/100 WBC (Bld) [Ratio] 0 % [facility] Platelet mean volume (Bld) [Entitic vol] 10.3 fL 9.0 - 12.7 fL [facility] Platelets (Bld) [#/Vol] 387 10*3/uL 140 - 440 10*3/uL [facility] RBC (Bld) [#/Vol] 4.82 10*6/uL 3.80 - 5.2 0 10*6/uL [facility] WBC (Bld) [#/Vol] 10 10*3/uL 3.6 - 10.7 10*3/uL [facility] CBC WITH AUTO DIFFERENTIALon 03-29-2024 Basophils (Bld) [#/Vol] 0.0 10*3/uL Normal 0.0-0.2 [facility] Comment on above: Performed By: #### L [id number] #### Sales Route Driver: RYLIE CRAWFORD ([id number]) [facility] ([facility]) [address] Basophils/100 WBC (Bld) 0.4 % Normal 0.0-2.0 [facility] Comment on above: Performed By: #### L [id number] #### Sales Route Driver: RYLIE MOODYHUONG ([id number]) [facility] [address] Eosinophils (Bld) [#/Vol] 0.1 10*3/uL Normal 0.0-0.5 [facility] Comment on above: Performed By: #### L [id number] #### Sales Route Driver: RYLIE CRAWFORD ([id number]) [facility] [place] [facility] [address] Eosinophils/100 WBC (Bld) 1.2 % Normal 0.0-6.0 [facility] Comment on above: Performed By: #### L [id number] #### Sales Route Driver: RYLIE CRAWFORD ([id number]) [facility] [place] [facility] [address] Erythrocyte distribution width (RBC) [Ratio] 13.8 % Normal 11.5-15.0 [facility] Comment on above: Performed By: #### L [id number] #### Sales Route Driver: RYLIE CRAWFORD ([id number]) [facility] [place] [address] Hematocrit (Bld) [Volume fraction] 39.9 % Normal 35.0-47.0 [facility] Comment on above: Performed By: #### L [id number] #### Sales Route Driver: RYLIE CRAWFORD ([id number]) [facility] [place] [facility] [address] [place] [address] [place] Hemoglobin (Bld) [Mass/Vol] 12.7 g/dL Normal 11.7-16.0 [facility] Comment on above: Performed By: #### L [id number] #### Sales Route Driver: RYLIE CRAWFORD ([id number]) [facility] ([facility]) [address] IMMATURE GRANS % 0.2 % Normal 0.0-2.0 [facility] Comment on above: Performed By: #### L [id number] #### Sales Route Driver: RYLIE CRAWFORD ([id number]) [facility] [address] IMMATURE GRANS ABSOLUTE 0.0 10*3/uL Normal <0.1 [facility] Comment on above: Performed By: #### L [id number] #### Sales Route Driver: RYLIE CRAWFORD ([id number]) [facility] ([facility] [address] Lymphocytes (Bld) [#/Vol] 1.9 10*3/uL Normal 1.0-4.3 [facility] Comment on above: Performed By: #### L [id number] #### Sales Route Driver: RYLIE CRAWFORD ([id number]) [facility] ([facility] [address] Lymphocytes/100 WBC (Bld) 18.6 % Normal 15.0-45.0 [facility] Comment on above: Performed By: #### L [id number] #### Sales Route Driver: RYLIE CRAWFORD ([id number]) [facility] [address] MCH (RBC) [Entitic mass] 26.3 pg Normal 26.0-34.0 [facility] Comment on above: Performed By: #### L [id number] #### Sales Route Driver: RYLIE CRAWFORD ([id number]) [facility] [address] MCHC 31.8 % Normal 30.5-36.0 [facility] Comment on above: Performed By: #### L [id number] #### Sales Route Driver: RYLIE CRAWFORD ([id number]) [facility] [place] [address] MCV (RBC) [Entitic vol] 82.8 fL Normal 77.0-99.0 [facility] Comment on above: Performed By: #### L [id number] #### Sales Route Driver: RYLIE CRAWFORD ([id number]) [facility] [address] Monocytes (Bld) [#/Vol] 0.9 10*3/uL Normal 0.0-0.9 [facility] Comment on above: Performed By: #### L [id number] #### Sales Route Driver: RYLIE CRAWFORD ([id number]) [facility] [address] Monocytes/100 WBC (Bld) 8.5 % Normal 5.0-13.0 [facility] Comment on above: Performed By: #### L [id number] #### Sales Route Driver: RYLIE CRAWFORD ([id number]) [facility] [address] NEUTROPHILS ABSOLUTE 7.1 10*3/uL Normal 1.8-7.5 [facility] Comment on above: Performed By: #### L [id number] #### Sales Route Driver: RYLIE CRAWFORD ([id number]) [facility] [place] [address] [place] [address] [place] Neutrophils/100 WBC (Bld) 71.1 % Normal 38.0-82.0 [facility] Comment on above: Performed By: #### L [id number] #### Sales Route Driver: RYLIE CRAWFORD ([id number]) [facility] ([facility] [address] [place] [address] [place] NRBC 0.0 /100 WBCs Normal 0.0-2.0 [facility] Comment on above: Performed By: #### L [id number] #### Sales Route Driver: RYLIE HELLEREstrellaHUONG ([id number]) [facility] ([facility]) [address] Platelet mean volume (Bld) [Entitic vol] 10.3 fL Normal 9.0-12.7 [facility] Comment on above: Performed By: #### L [id number] #### Sales Route Driver: RYLIE HELLEREVER ([id number]) [facility] ([facility]) [address] Platelets (Bld) [#/Vol] 387 10*3/uL Normal 140-440 [facility] Comment on above: Performed By: #### L [id number] #### Sales Route Driver: RYLIE HELLEREVER ([id number]) [facility] ([facility]) [address] RBC (Bld) [#/Vol] 4.82 10*6/uL Normal 3.80-5.20 [facility] Comment on above: Performed By: #### L [id number] #### Sales Route Driver: RYLIE HELLEREVER ([id number]) [facility] ([facility]) [address] WBC (Bld) [#/Vol] 10.0 10*3/uL Normal 3.6-10.7 [facility] Comment on above: Performed By: #### L [id number] #### Sales Route Driver: RYLIE MOODYHUONG ([id number]) [facility] ([facility]) [address] CHLAMYDIA/GONORRHEAon 2023 CHLAMYDIA/GONORRHEA NEISSERIA GONORRHOEA E [...] should be collected if clinically indicated. Normal [facility] Comment on above: Performed By: #### L [id number] #### Sales Route Driver: ASTRID MERCEDES ([id number]) [facility] ([facility]) [address] [place] [address] COMPLETE URINALYSISon 2023 BACTERIA (#/HPF) IN URINE Moderate Abnormal Negative [facility] Comment on above: Performed By: #### L [id number] ####Sales Route Driver: RYLIE CRAWFORD ([id number])[facility] ([facility])[address] BILIRUBIN, TOTAL PRESENCE IN URINE Negative Normal Negative [facility] Comment on above: Performed By: #### L [id number] ####Sales Route Driver: RYLIE CRAWFORD ([id number])[facility] ([facility])[address] Clarity (U) Clear Normal Clear [facility] Comment on above: Performed By: #### L [id number] ####Sales Route Driver: RYLIE CRAWFORD ([id number])[facility] ([facility])[address] Color (U) Light Yellow Normal Lt. Yellow [facility] Comment on above: Performed By: #### L [id number] ####Sales Route Driver: RYLIE CRAWFORD ([id number])[facility] ([facility])[address] [place] [address] [place] GLUCOSE (MG/DL) IN URINE Normal Normal Normal (<70) [facility] Comment on above: Performed By: #### L [id number] ####Sales Route Driver: RYLIE CRAWFORD ([id number])[facility] ([facility])[address] HEMOGLOBIN PRESENCE IN URINE 0.03 mg/dL Abnormal Negative [facility] Comment on above: Performed By: #### L [id number] ####Sales Route Driver: RYLIE CRAWFORD ([phone])[facility] ([facility])[address] Ketones Ql (U) Negative Normal Negative [facility] Comment on above: Performed By: #### L [id number] ####Sales Route Driver: RYLIE CRAWFORD ([id number])[facility] LEUKOCYTE ESTERASE PRESENCE IN URINE BY TEST STRIP Negative Normal Negative [facility] Comment on above: Performed By: #### L [id number] ####Sales Route Driver: RYLIE CRAWFORD ([id number])[facility])[address] MUCUS (#/LPF) IN URINE SEDIMENT Many Abnormal Negative [facility] Comment on above: Performed By: #### L [id number] ####Sales Route Driver: RYLIE CRAWFORD ([id number])[facility] NITRITE PRESENCE IN URINE Negative Normal Negative [facility] Comment on above: Performed By: #### L [id number] ####Sales Route Driver: RYLIE CRAWFORD ([id number])[facility] NON-SQUAMOUS EPITHELIAL (#/HPF) IN URINE 0-2 Abnormal Negative [facility] Comment on above: Performed By: #### L [id number] ####Sales Route Driver: RYLIE CRAWFORD ([phone])[facility] [place] (SBHLAB)[address] pH (U) 5.0 [pH] Normal 5.0-8.0 [facility] Comment on above: Performed By: #### L [id number] ####Sales Route Driver: RYLIE CRAWFORD ([phone])[facility] [place] (SBHLAB)[address] Protein (U) [Mass/Vol] Negative Normal Negative [facility] Comment on above: Performed By: #### L [id number] ####Sales Route Driver: RYLIE CRAWFORD ([phone])[facility] [place] (SBHLAB)[address] RBC (#/HPF) IN URINE SEDIMENT 0-2 Normal 0-2 [facility] Comment on above: Performed By: #### L [id number] ####Sales Route Driver: RYLIE CRAWFORD ([phone])[place] [facility] [place] ([facility])[address] Specific gravity (U) [Rel density] 1.023 Normal 1.005-1.030 [facility] Comment on above: Performed By: #### L AB347 ####Sales Route Driver: RYLIE CRAWFORD ([phone])[facility] [place] ([facility])155 [place] [address] [place] SQUAMOUS EPITHELIAL CELLS (#/HPF) IN URINE SEDIMENT 6-10 Abnormal 3-5 [facility] Comment on above: Performed By: #### L AB347 ####Sales Route Driver: RYLIE CRAWFORD ([phone])[facility] [place] ([facility])155 [place] [address] [place] TRICHOMONAS SP (#/HPF) IN URINE Few (1-5) Abnormal Negative [facility] Comment on above: Performed By: #### L AB347 ####Sales Route Driver: RYLIE CRAWFORD ([phone])[facility] [place] ([facility])[address] [place] [address] [place] UROBILINOGEN (MG/DL) IN URINE Normal Normal Normal (0-1) [facility] Comment on above: Performed By: #### L AB347 ####Sales Route Driver: RYLIE CRAWFORD ([phone])[facility] [place] ([facility])155 [place] [address] [place] WBC (LEUKOCYTE) (#/HPF) IN URINE SEDIMENT 0-2 Normal 0-5 [facility] Comment on above: Performed By: #### L AB347 ####Sales Route Driver: RYLIE CRAWFORD ([phone])[facility] [place] ([facility])[address] COMPREHENSIVE METABOLIC PANE Petros 03-29-2024 Albumin [Mass/Vol] 4.3 g/dL Normal 3.5-5.0 [facility] Comment on above: Performed By: #### L AB99, LAB17 ####Sales Route Driver: RYLIE CRAWFORD ([phone])[facility] [place] ([facility])[address] ALP [Catalytic activity/Vol] 77 U/L Normal 38-126 [facility] Comment on above: Performed By: #### L AB99, LAB17 ####Sales Route Driver: RYLIE CRAWFORD ([phone])[facility] [place] ([facility])[address] ALT [Catalytic activity/Vol] 16 U/L Normal 0-34 [facility] Comment on above: Performed By: #### L AB99, LAB17 ####Sales Route Driver: RYLIE CRAWFORD ([phone])[facility] [place] ([facility])[address] Anion gap [Moles/Vol] 7 mmol/L Normal 3-13 [facility] Comment on above: Performed By: #### L AB99, LAB17 ####Sales Route Driver: RYLIE CRAWFORD ([phone])[facility] [place] ([facility])[address] AST [Catalytic activity/Vol] 21 U/L Normal 15-46 [facility] Comment on above: Performed By: #### L AB99, LAB17 ####Sales Route Driver: RYLIE CRAWFORD ([phone])[facility] [place] ([facility])[address] Bilirubin [Mass/Vol] 0.4 mg/dL Normal 0.2-1.3 [facility] Comment on above: Performed By: #### L AB99, LAB17 ####Sales Route Driver: RYLIE CRAWFORD ([phone])[facility] [place] ([facility])[address] Calcium [Mass/Vol] 8.9 mg/dL Normal 8.4-10.4 [facility] Comment on above: Performed By: #### L AB99, LAB17 ####Sales Route Driver: RYLIE CRAWFORD ([phone])[facility] [place] ([facility])[address] Chloride [Moles/Vol] 107 mmol/L Normal 98-107 [facility] Comment on above: Performed By: #### L AB99, LAB17 ####Sales Route Driver: RYLIE CRAWFORD ([phone])[facility] ([facility])[address] CO2 [Moles/Vol] 25 mmol/L Normal 22-30 [facility] Comment on above: Performed By: #### L AB99, LAB17 ####Sales Route Driver: RYLIE CRAWFORD ([phone])[facility] ([facility])[address] Creatinine [Mass/Vol] 0.92 mg/dL Normal 0.52-1.04 [facility] Comment on above: Performed By: #### L AB99, LAB17 ####Sales Route Driver: RYLIE CRAWFORD ([phone])[facility] ([facility])155 [place] [address] [place] GLOMERULAR FILTRATION RATE ML/MIN/1.73 SQ M.PREDICTED 86.1 mL/min/1.73m*2 Normal >60.0 [facility] Comment on above: Result Comment: Calc ulation based on the Chronic Kidney Disease Epidemiology Collaboration (CKD-EPI) equation refit without adjustment for race Performed By: #### L AB99, LAB17 ####Sales Route Driver: RYLIE CRAWFORD ([phone])[facility] [place] ([facility])[address] Glucose [Mass/Vol] 98 mg/dL Normal 70-100 [facility] Comment on above: Performed By: #### L AB99, LAB17 ####Sales Route Driver: RYLIE CRAWFORD ([phone])[facility] [place] ([facility])[address] Potassium [Moles/Vol] 3.6 mmol/L Normal 3.5-5.1 [facility] Comment on above: Performed By: #### L AB99, LAB17 ####Sales Route Driver: RYLIE CRAWFORD ([phone])[facility] ([facility])[address] Protein [Mass/Vol] 8.0 g/dL Normal 6.3-8.2 [facility] Comment on above: Performed By: #### L AB99, LAB17 ####Sales Route Driver: RYLIE CRAWFORD ([phone])[facility] ([facility])[address] Sodium [Moles/Vol] 139 mmol/L Normal 135-145 [facility] Comment on above: Performed By: #### L AB99, LAB17 ####Sales Route Driver: RYLIE CRAWFORD ([phone])[facility] [place] ([facility])[address] Urea nitrogen [Mass/Vol] 12 mg/dL Normal 7-17 [facility] Comment on above: Performed By: #### L AB99, LAB17 ####Sales Route Driver: RYLIE CRAWFORD ([phone])[facility] ([facility])[address] Comprehensive metabolic 1998 panelon 03-29-2024 Albumin [Mass/Vol] 4.3 g/dL 3.5 - 5.0 g/dL [facility] ALP [Catalytic activity/Vol] 77 U/L 38 - 126 U/L [facility] ALT [Catalytic activity/Vol] 16 U/L 0 - 34 U/L [facility] Anion gap [Moles/Vol] 7 mmol/L 3 - 13 mmol/L [facility] AST [Catalytic activity/Vol] 21 U/L 15 - 46 U/L [facility] Bilirubin [Mass/Vol] 0.4 mg/dL 0.2 - 1 .3 mg/dL [facility] Calcium [Mass/Vol] 8.9 mg/dL 8.4 - 10. 4 mg/dL [facility] Chloride [Moles/Vol] 107 mmol/L 98 - 10 7 mmol/L [facility] CO2 [Moles/Vol] 25 mmol/L 22 - 30 mmol/L [facility] Creatinine [Mass/Vol] 0.92 mg/dL 0.52 - 1.04 mg/dL [facility] GFR/1.73 sq M.predicted (S/P/Bld) [Vol rate/Area] 86.1 mL/min - PINF [facility] Comment on above: Calculation based on the Chronic Kidney Disease Epidemiology Collaboration (CKD-EPI) equation refit without adjustment for race Glucose [Mass/Vol] 98 mg/dL 70 - 100 mg/dL [facility] Potassium [Moles/Vol] 3.6 mmol/L 3.5 - 5.1 mmol/L [facility] Protein [Mass/Vol] 8 g/dL 6.3 - 8.2 g/dL [facility] Sodium [Moles/Vol] 139 mmol/L 135 - 145 mmol/L [facility] Urea nitrogen [Mass/Vol] 12 mg/dL 7 - 17 mg/dL [facility] ED Nursing Noteon 03-29-2024 ED Nursing Note Attempted PIV x2; unsuccessful. Will notify oncoming RN. Normal [facility] ED Nursing Note Patient states that she has had RUQ pain intermittently for the past couple weeks. States that she has hx of gallstones. Denies abdominal surgical hx. Endorses nausea w/out vomiting. Normal [facility] ED Provider Noteon ED Provider Note [...] with nausea or vomiting. Patient has taken jomu-hxt-thnbhss medication without significant proven symptoms. Of note [...] Friends and Family: Twice a week Attends [employer] Services: Never Active Member of Clubs or [...] Rhythm: Nor (more content not included)... Normal [facility] HCG QUALITATIVE URINEon 11-0 Beta HCG ( test) Ql (U) Negative Normal Negative [facility] Comment on above: Result Comment: Plea se note: Very dilute urine specimens, as indicated by a low specific gravity, may not contain phone representative levels of hCG. If is still suspected, a first morning urine specimen should be collected 48 hours later and tested. ORDER COMMENTS: is the most common reason for HCG in urine, although choriocarcinoma, hydatidiform mole, and certain nontrophoblastic malignancies also result in detectable urinary HCG levels. Sensitivity = 20mIU/mL. Performed By: #### L [id number] ####Sales Route Driver: RYLIE CRAWFORD ([phone])[facility] [place] [address] LIPASEon 03-29-2024 Lipase [Catalytic activity/Vol] 110 U/L Normal 23-300 [facility] Comment on above: Performed By: #### L AB99, LAB17 ####Sales Route Driver: RYLIE CRAWFORD ([phone])[facility] ([facility])[address] [place] [address] Laboratory - Chemistry and C hemistry - challengeOrdered By: Becky Hurst on 03-29-2024 Beta HCG ( test) Ql Negative Negative [facility] Comment on above: Please note: Very di lute urine specimens, as indicated by a low specific gravity, may not contain phone representative levels of hCG. If is still suspected, a first morning urine specimen should be collected 48 hours later and tested. Beta HCG ( test) Ql (U) is the most common reason for HCG in urine, although choriocarcinoma, hydatidiform mole, and certain nontrophoblastic malignancies also result in detectable urinary HCG levels. Sensitivity = 20mIU/mL. [facility] Laboratory - Chemistry and C hemistry - challengeon 03-29-2024 Lipase [Catalytic activity/Vol] 110 U/L 23 - 300 U/L [facility] No Panel InformationOrdered By: Becky Hurst on 03-29-2024 [facility] No Panel Informationon 03-29 Interpretation and review of laboratory results Normal [facility] US ABDOMEN LIMITEDon 024 US ABDOMEN LIMITED Patient Name: AGUEDA AC : 1995 Exam Date/Time: 03/29/2024 19:59 Procedure: US ABDOMEN LIMITED Ordering Provider: HOPE MICHAEL Reason For Exam: RUQ abdominal pain, no prior imaging INDICATION: 29-year-old female; right upper quadrant abdominal pain. VIEWS: Multiple grayscale sonographic images were obtained of the abdomen targeted to the right upper quadrant by the charge histotechnologist with color and Doppler flow imaging. COMPARISON: Report from the [facility] RIGHT upper quadrant ultrasound 02/14/2024 (no [...] MD Electronically Signed Date/Time: 03/29/2024 9:22 PM [facility] US Abdomen limitedon 024 1. Cholelithiasis. Positive sonographic Porter's sign is nonspecific (also positive on 02/14/2024). Nuclear medicine HIDA scan may be of benefit to further evaluate for chronic versus acute cholecystitis. 2. Hepatic steatosis. Report Dictated on Electronically Signed By: Tayla Shrestha MD Electronically Signed Date/Time: 03/29/2024 9:22 PM [facility] 1995 [id number] Exam Date/Time: 03/29/2024 19:59 Procedure: US ABDOMEN LIMITED Ordering Provider: HOPE MICHAEL Reason For Exam: RUQ abdominal pain, no prior imaging INDICATION: 29-year-old female; right upper quadrant abdominal pain. VIEWS: Multiple grayscale sonographic images were obtained of the abdomen targeted to the right upper quadrant by the charge histotechnologist with color and Doppler flow imaging. COMPARISON: Report from the [facility] RIGHT upper quadrant ultrasound 02/14/2024 (no [...] of the liver without a discrete mass. [facility] Tayla Shrestha MD - 03/29/2024 Patient Name: AGUEDA LEWIS [facility] 1995 [id number] Exam Date/Time: 03/29/2024 19:59 Procedure: US ABDOMEN LIMITED Ordering Provider: HOPE MICHAEL Reason For Exam: RUQ abdominal pain, no prior imaging INDICATION: 29-year-old female; right upper quadrant abdominal pain. VIEWS: Multiple grayscale sonographic images were obtained of the abdomen targeted to the right upper quadrant by the charge histotechnologist with color and Doppler flow imaging. COMPARISON: Report from the [facility] RIGHT upper quadrant ultrasound 02/14/2024 (no [...] Electronically Signed Date/Time: 03/29/2024 9:22 PM EST [facility] Radiology Study observation (narrative) [facility] US Abdomen limitedOrdered By : Tayla Shrestha on 03-29-2024 [facility] Work Phone: Urinalysis complete panel (U )on 03-29-2024 Bacteria LM.HPF (Urine sed) [#/Area] Moderate Abnormal Negative /HPF [facility] Bilirubin Ql (U) Negative Negative mg/dL [facility] Clarity (U) Clear Clear [facility] Color (U) Light Yellow Lt. Yellow [facility] Epithelial cells.squamous LM.HPF (Urine sed) [#/Area] 6-10 Abnormal [facility] Glucose Ql (U) Normal Normal (<70) mg/dL [facility] Hemoglobin Ql (U) 0.03 mg/dL Abnormal Negative [facility] Interpretation and review of laboratory results Abnormal [facility] Ketones (U) [Mass/Vol] Negative Negat joanne mg/dL [facility] Leukocyte esterase Test strip Ql (U) Negative Negative [place]/uL [facility] Mucus LM.HPF (Urine sed) [#/Area] Many Abnormal Negative /LPF [facility] Nitrite Ql (U) Negative Negative [facility] Non-Squamous Epithalial Cells, Urine 0-2 Abnormal Negative /HPF [facility] pH (U) 5.0 [pH] 5.0 - 8.0 pH [facility] Protein (U) [Mass/Vol] Negative Negat joanne mg/dL [facility] RBC LM.HPF (Urine sed) [#/Area] 0-2 [facility] Specific gravity (U) [Rel density] 1.023 1.005 - 1.030 [facility] Trichomonas sp LM.HPF (Urine sed) [#/Area] Few (1-5) Abnormal Negative /HPF [facility] Urobilinogen (U) [Mass/Vol] Normal Normal (0-1) mg/dL [facility] WBC LM.HPF (Urine sed) [#/Area] 0-2 [facility] Basic metabolic 2000 panelon 02-14-2024 Anion gap [Moles/Vol] 12 mmol/L Normal 8-15 [facility] Comment on above: Order Comment: Speci men Type: BLOOD SPECIMENOrdering Facility: [facility] Address: [address] [place] [address] Performed By: #### 2 4325-3, 3040-3, 38075-9 ####[facility] LABORATORYCLIA [id number] [place] [address] [place] Calcium [Mass/Vol] 9.0 mg/dL Normal 8.5-10.2 [facility] Comment on above: Order Comment: Speci men Type: BLOOD SPECIMENOrdering Facility: [facility] Address: [address] [place] [address] Performed By: #### 2 4325-3, 3040-3, 61851-0 ####[facility] LABORATORYCLIA [id number] [place] [address] [place] Chloride [Moles/Vol] 103 mmol/L Normal 98-107 [facility] Comment on above: Order Comment: Speci men Type: BLOOD SPECIMENOrdering Facility: [facility] Address: [address] [place] [address] Performed By: #### 2 4325-3, 3040-3, 14542-6 ####[facility] LABORATORYCLIA [id number] [place] [address] [place] CO2 [Moles/Vol] 22 mmol/L Normal 22-30 [facility] Comment on above: Order Comment: Vanessa echavarria Type: BLOOD SPECIMENOrdering Facility: [facility] Address: [address] [place] [address] Performed By: #### 2 4325-3, 3040-3, 18747-4 ####[facility] LABORATORYCLIA [id number] [address] [place] Creatinine [Mass/Vol] 1.11 mg/dL High 0.58-0.96 [facility] Comment on above: Order Comment: Speci men Type: BLOOD SPECIMENOrdering Facility: [facility] Address: [address] [place] [address] Performed By: #### 2 4325-3, 3040-3, 00762-1 ####[facility] [id number] [address] Creatinine and Glomerular filtration rate.predicted panel (S/P/Bld) 69 mL/min/1.73m??? Normal >=60 [facility] Comment on above: Order Comment: Vanessa echavarria Type: BLOOD SPECIMENOrdering Facility: [facility] Address: [address] [place] [address] Result Comment: Makayla mated Glomerular Filtration Rate [...] GFR. Performed By: #### 2 4325-3, 3040-3, 32497-3 ####[facility] LABORATORYCLIA [id number] [address] [place] Glucose [Mass/Vol] 115 mg/dL High 74-99 [facility] Comment on above: Order Comment: Gennyi jericho Type: BLOOD SPECIMENOrdering Facility: [facility] Address: [address] [place] [address] Result Comment: The [place] [employer] (ADA) provides guidance for cutoff [...] Standards of Medical Care in Diabetes 2016, [place] [employer]. Diabetes Care. 2016.39(Suppl 1). Performed By: #### 2 4325-3, 3040-3, 32148-7 ####[facility] LABORATORYCLIA [id number] [place] [address] [place] Potassium [Moles/Vol] 3.7 mmol/L Normal 3.7-5.1 [facility] Comment on above: Order Comment: Speci men Type: BLOOD SPECIMENOrdering Facility: [facility] Address: [address] [place] [address] Performed By: #### 2 4325-3, 3040-3, 97671-8 ####[facility] LABORATORYCLIA [id number] [place] [address] [place] Sodium [Moles/Vol] 137 mmol/L Normal 136-144 [facility] Comment on above: Order Comment: Speci men Type: BLOOD SPECIMENOrdering Facility: [facility] Address: [address] [place] [id number] Performed By: #### 2 4325-3, 3040-3, 05102-7 ####[facility] LABORATORYCLIA [id number] [place] [address] [place] Urea nitrogen [Mass/Vol] 15 mg/dL Normal 7-21 [facility] Comment on above: Order Comment: Speci men Type: BLOOD SPECIMENOrdering Facility: [facility] Address: [address] [place] [address] Performed By: #### 2 4325-3, 3040-3, 78880-1 ####[facility]ORATORYCLIA [id number] [place] [address] [place] CBC W Auto Differential pane l (Bld)on 02-14-2024 Basophils (Bld) [#/Vol] 0.05 10*3/uL Normal <0.11 [facility] Comment on above: Order Comment: Speci men Type: BLOOD SPECIMENOrdering Facility: [facility] Address: [address] [place] [address] Performed By: #### 5 7021-8 ####[facility]ORATORYCLIA [id number] [address] [place] Basophils/100 WBC (Bld) 0.6 % Normal [facility] Comment on above: Order Comment: Speci men Type: BLOOD SPECIMENOrdering Facility: [facility] Address: [address] [place] [address] Performed By: #### 5 7021-8 ####[facility]ORATORYCLIA [id number] [address] STATES [facility] Differential cell count method Nom (Bld) Auto Normal [facility] Comment on above: Order Comment: Speci men Type: BLOOD SPECIMENOrdering Facility: [facility] Address: [address] [place] [address] Performed By: #### 5 7021-8 ####[facility]ORATORYCLIA [id number] [place] [address] [place] Eosinophils (Bld) [#/Vol] 0.20 10*3/uL Normal <0.46 [facility] Comment on above: Order Comment: Speci men Type: BLOOD SPECIMENOrdering Facility: [facility] Address: [address] [place] [address] Performed By: #### 5 7021-8 ####[facility]ORATORYCLIA [id number] [address] [place] Eosinophils/100 WBC (Bld) 2.6 % Normal [facility] Comment on above: Order Comment: Speci men Type: BLOOD SPECIMENOrdering Facility: [facility] Address: [address] [place] [address] Performed By: #### 5 7021-8 ####[facility] LABORATORYCLIA [id number] [address] STATES OF [facility] Erythrocyte distribution width (RBC) [Ratio] 15.0 % Normal 11.5-15.0 [facility] Comment on above: Order Comment: Speci men Type: BLOOD SPECIMENOrdering Facility: [facility] Address: [address] [place] [address] Performed By: #### 5 7021-8 ####[facility] LABORATORYCLIA [id number] [address] OF [facility] Hematocrit (Bld) [Volume fraction] 36.8 % Normal 36.0-46.0 [facility] Comment on above: Order Comment: Speci men Type: BLOOD SPECIMENOrdering Facility: [facility] Address: [address] [place] [address] Performed By: #### 5 7021-8 ####[facility] LABORATORYCLIA [id number] [address] Hemoglobin (Bld) [Mass/Vol] 11.4 g/dL Low 11.5-15.5 [facility] Comment on above: Order Comment: Speci men Type: BLOOD SPECIMENOrdering Facility: [facility] Address: [address] [place] [address] Performed By: #### 5 7021-8 ####[facility] LABORATORYCLIA [id number] [address] Immature granulocytes (Bld) [#/Vol] 10*3/uL Normal <0.10 [facility] Comment on above: Order Comment: Speci men Type: BLOOD SPECIMENOrdering Facility: [facility] Address: [address] [place] [address] Performed By: #### 5 7021-8 ####[facility] LABORATORYCLIA [id number] [address] [place] Immature granulocytes/100 WBC (Bld) 0.1 % Normal [facility] Comment on above: Order Comment: Speci men Type: BLOOD SPECIMENOrdering Facility: [facility] Address: [address] [place] [address] Performed By: #### 5 7021-8 ####[facility] LABORATORYCLIA [id number] [address] [place] Lymphocytes (Bld) [#/Vol] 2.45 10*3/uL Normal 1.00-4.00 [facility] Comment on above: Order Comment: Speci men Type: BLOOD SPECIMENOrdering Facility: [facility] Address: [address] [place] [address] Performed By: #### 5 7021-8 ####[facility] LABORATORYCLIA [id number] [address] Lymphocytes/100 WBC (Bld) 31.7 % Normal [facility] Comment on above: Order Comment: Speci men Type: BLOOD SPECIMENOrdering Facility: [facility] Address: [address] [place] [address] Performed By: #### 5 7021-8 ####[facility] LABORATORYCLIA [id number] [address] MCH (RBC) [Entitic mass] 26.5 pg Normal 26.0-34.0 [facility] Comment on above: Order Comment: Speci men Type: BLOOD SPECIMENOrdering Facility: [facility] Address: [address] [place] [address] Performed By: #### 5 7021-8 ####[facility] LABORATORYCLIA [id number] [address] STATES [facility] MCHC (RBC) [Mass/Vol] 31.0 g/dL Normal 30.5-36.0 [facility] Comment on above: Order Comment: Speci men Type: BLOOD SPECIMENOrdering Facility: [facility] Address: [address] [place] [address] Performed By: #### 5 7021-8 ####[facility] LABORATORYCLIA [id number] [place] [address] [place] MCV (RBC) [Entitic vol] 85.4 fL Normal 80.0-100.0 [facility] Comment on above: Order Comment: Speci men Type: BLOOD SPECIMENOrdering Facility: [facility] Address: [address] [place] [address] Performed By: #### 5 7021-8 ####[facility] LABORATORYCLIA [id number] [place] [address] [place] Monocytes (Bld) [#/Vol] 0.61 10*3/uL Normal <0.87 [facility] Comment on above: Order Comment: Speci men Type: BLOOD SPECIMENOrdering Facility: [facility] Address: [address] [place] [address] Performed By: #### 5 7021-8 ####[facility] LABORATORYCLIA [id number] [address] [place] Monocytes/100 WBC (Bld) 7.9 % Normal [facility] Comment on above: Order Comment: Speci men Type: BLOOD SPECIMENOrdering Facility: [facility] Address: [address] [place] [address] Performed By: #### 5 7021-8 ####[facility] LABORATORYCLIA [id number] [place] [address] [place] Neutrophils (Bld) [#/Vol] 4.40 10*3/uL Normal 1.45-7.50 [facility] Comment on above: Order Comment: Speci men Type: BLOOD SPECIMENOrdering Facility: [facility] Address: [address] [place] [address] Performed By: #### 5 7021-8 ####[facility] [facility] LAB[facility]ATORYCLIA [id number] [address] [place] Neutrophils/100 WBC (Bld) 57.1 % Normal [facility] Comment on above: Order Comment: Speci men Type: BLOOD SPECIMENOrdering Facility: [facility] Address: [address] [place] [address] Performed By: #### 5 7021-8 ####[facility]ATORYCLIA [id number] [address] [place] Nucleated RBC (Bld) [#/Vol] 10*3/uL Normal <0.01 [facility] Comment on above: Order Comment: Speci men Type: BLOOD SPECIMENOrdering Facility: [facility] Address: [address] [place] [address] Performed By: #### 5 7021-8 ####[facility]ATORYCLIA [id number] [address] [place] Nucleated RBC/100 WBC (Bld) [Ratio] 0.0 /[address] [facility] Comment on above: Order Comment: Speci men Type: BLOOD SPECIMENOrdering Facility: [facility] Address: [address] [place] [address] Performed By: #### 5 7021-8 ####[facility]ATORYCLIA [id number] [address] [place] Platelet mean volume (Bld) [Entitic vol] 10.5 fL Normal 9.0-12.7 [facility] Comment on above: Order Comment: Speci men Type: BLOOD SPECIMENOrdering Facility: [facility] Address: [address] [place] [address] Performed By: #### 5 7021-8 ####[facility] LABORATORYCLIA [id number] [place] [address] [place] Platelets (Bld) [#/Vol] 323 10*3/uL Normal 150-400 [facility] Comment on above: Order Comment: Speci men Type: BLOOD SPECIMENOrdering Facility: [facility] Address: [address] [place] [address] Performed By: #### 5 7021-8 ####[facility]ATORYCLIA [id number] [place] [address] [place] RBC (Bld) [#/Vol] 4.31 10*6/uL Normal 3.90-5.20 [facility] Comment on above: Order Comment: Speci men Type: BLOOD SPECIMENOrdering Facility: [facility] Address: [address] [place] [address] Performed By: #### 5 7021-8 ####[facility]ATORYCLIA [id number] [address] WBC (Bld) [#/Vol] 7.72 10*3/uL Normal 3.70-11.00 [facility] Comment on above: Order Comment: Speci men Type: BLOOD SPECIMENOrdering Facility: [facility] Address: [address] [place] [address] Performed By: #### 5 7021-8 ####[facility]ATORYCLIA [id number] [address] ED NOTEon 02-14-2024 ED NOTE HNO ID: [id number] Author: DONAVAN ZAVALA CT Service: ? Author Type: Registered Nurse Type: ED Notes Filed: 02/14/2024 05:48 Note Text: No answer for re vitals @ [address] [facility] ED Triage Noteon 02-14-2024 ED Triage Note HNO ID: [id number] Author: KIM MCGRAW APRN.CNP Service: Emergency Medicine [...] Panel SIGNATURE: Kim Mcgraw APRN.CNP Normal [facility] Hepatic function 2000 panelo n 02-14-2024 Albumin [Mass/Vol] 3.9 g/dL Normal 3.9-4.9 [facility] Comment on above: Order Comment: Speci men Type: BLOOD SPECIMENOrdering Facility: [facility] Address: [address] [place] [address] Performed By: #### 2 4325-3, 3040-3, 29352-0 ####[facility]ATORYCLIA [id number] [address] STATES OF [facility] ALP [Catalytic activity/Vol] 87 U/L Normal 34-123 [facility] Comment on above: Order Comment: Speci men Type: BLOOD SPECIMENOrdering Facility: [facility] Address: [address] [place] [address] Performed By: #### 2 4325-3, 3040-3, 90121-3 ####[facility]ATORYCLIA [id number] [address] [place] ALT With P-5'-P [Catalytic activity/Vol] 13 U/L Normal 7-38 [facility] Comment on above: Order Comment: Speci men Type: BLOOD SPECIMENOrdering Facility: [facility] Address: [address] [place] [address] Performed By: #### 2 4325-3, 3040-3, 43175-7 ####[facility]ATORYCLIA [id number] [address] AST With P-5'-P [Catalytic activity/Vol] 17 U/L Normal 13-35 [facility] Comment on above: Order Comment: Speci men Type: BLOOD SPECIMENOrdering Facility: [facility] Address: [address] [place] [address] Performed By: #### 2 4325-3, 3040-3, 91654-5 ####[facility]ATORYCLIA [id number] [address] [place] Bilirubin [Mass/Vol] mg/dL Low 0.2-1.3 [facility] Comment on above: Order Comment: Speci men Type: BLOOD SPECIMENOrdering Facility: [facility] Address: [address] [place] [address] Performed By: #### 2 4325-3, 3040-3, 02674-0 ####[facility] LABORATORYCLIA [id number] [place] [address] [place] [facility] Bilirubin.conjugated [Mass/Vol] mg/dL Normal <0.2 [facility] Comment on above: Order Comment: Speci men Type: BLOOD SPECIMENOrdering Facility: [facility] Address: [address] [place] [address] Performed By: #### 2 4325-3, 3040-3, 55614-9 ####[facility]ATORYCLIA [id number] [place] [address] [place] Protein [Mass/Vol] 6.9 g/dL Normal 6.3-8.0 [facility] Comment on above: Order Comment: Speci men Type: BLOOD SPECIMENOrdering Facility: [facility] Address: [address] [place] [address] Performed By: #### 2 4325-3, 3040-3, 97316-4 ####[facility] LABORATORYCLIA [id number] [place] [address] [place] Lipase SerPl-cCncon 02-14-20 24 Lipase [Catalytic activity/Vol] 46 U/L Normal 16-61 [facility] Comment on above: Order Comment: Speci men Type: BLOOD SPECIMENOrdering Facility: [facility] Address: [address] [place] [address] Performed By: #### 2 4325-3, 3040-3, 97607-6 ####[facility] LABORATORYCLIA [id number] [place] [address] [place] US ABD RIGHT UPPER QUADRANTo n 02-14-2024 US ABD RIGHT UPPER QUADRANT * * *Final Report* * * DATE OF EXAM: Feb 14 2024 2:48AM [facility] - US ABD RIGHT UPPER QUADRANT [...] sonographic Porter sign suggestive of acute cholecystitis. Java Engineer: PSCB Transcribe Date/Time: Feb 14 2024 4:42A Dictated by : TIMUR PRADO MD This examination was interpreted and the report reviewed and electronically signed by: TIMUR PRADO MD on Feb 14 2024 4:49AM EST [id number] Normal [facility] 01-16-2024 CNPN Telephone (GENSWS) ----- AGUEDA LEWIS ([id number]) 1995 F Date Time Provider Department 01/16/24 [...] dates for gall bladder surgery Janeen John Licensed Loan Officer Janeen John 02/27/2024 8:40 AM Signed Patient had no showed her echo stress test yesterday 02/26/2024 Patient is aware she is not able to proceed with scheduling surgery until test has been completed and she has been cleared Janeen John Licensed Loan Officer ' Janeen John 02/27/2024 8:40 AM Signed Mychart sent to call and rescheduling testing needing for clearance prior to proceeding with surgery Janeen John Licensed Loan Officer Allergies As of Date: 01/16/2024 (No Known [...] Encounter Status:Closed by MARCELLO PATRICK on 03/27/24 [facility] CNOVon 12-29-2023 CNOV Office Visit (GENSWS ) ----- AGUEDA [id number]) 1995 F Date Time Provider Department 12/29/23 10:30 AM MARY JASSO During your visit today, we recorded the following information about you: Temperature Pulse Blood pressure Weight 96.9 degrees 117/minute 108/66 121.5 kg Height 1.803 m Mary Jasso MD 12/29/2023 8:35 PM Signed HISTORY AND PHYSICAL Agueda [place] 1995 REFERRING PHYSICIAN: Self CHIEF COMPLAINT: ER [...] had been seen by a surgeon at [facility] who recommended cardiology consultation The patient does complain of occasional chest pain. She was seen by a photocopying machine operator who recommended stress echocardiogram prior [...] and mumps, denies (more content not included)... [facility] 36on 07-25-2023 36 Please call patient to offer an in-office ER follow-up in 1-2 weeks with PCP or other available yellow pod provider if symptoms persist or worsen. Currently scheduled for 08/11/23, can just keep this appointment for ER follow-up unless pt wants to be seen sooner due to symptoms. [facility] Progress Noteon 07-25-2023 Progress Note Chart reviewed of ED follow up Seen in [facility] ED on 07/22/23 Reason: Abdominal pain Discharge instructions: Follow up with PCP as needed Attempted to call patient. Voice mail is not set up. ED message and education sent via [employer] [place] [address]on 07-13-2023 36 noted [place] [address] S-Pt left message wi Telephone Agent that she missed her period R-NO CONTACT X 2 Unable to leave message as no Voice Mail set up Reason for Disposition ? Unable to complete triage due to phone connection issues Protocols used: No Contact or Duplicate Contact Daza-CCDWE-AB [place] [address]on 05-26-2023 36 Sent [facility] message to patient stating that a Zofran refill will be provided to last until her General Surgery appointment, but she should ask for further refills from the surgeon after appointment. [facility] [address] ssage will send a letter to schedule [place] [address]on 05-24-2023 36 Could not leave a vm will try again later [place] [address] Prescription request reviewed for compliance with [facility] guidelines. Refill not recommended due to ordered for up to 7 days. Please schedule patient for well woman with PAP with PCP as soon as possible. [place] [address]on 04-18-2023 36 Appt made 04/27 [place] [address] Please call patient to schedule in-office soonest available appointment with PCP for follow-up to discuss irregular menses and reassess abdominal pain. [place] [address]on 04-17-2023 36 Last apt 03/27/23. Ne xt apt not scheduled yet. Normal [facility] CBC panel Auto (Bld)Ordered By: Yuliana Hood on 03-27-2023 Erythrocyte distribution width (RBC) [Ratio] 14.7 % High 11.5 - 14.5 % [facility] Hematocrit (Bld) [Volume fraction] 37.6 % 35.0 - 47.0 % [facility] Hemoglobin (Bld) [Mass/Vol] 12.5 g/dL 11.7 - 16.0 g/dL [facility] Interpretation and review of laboratory results Abnormal [facility] MCH (RBC) [Entitic mass] 27.8 pg 26.0 - 34.0 pg [facility] MCHC (RBC) [Mass/Vol] 33.2 % 32.0 - 36.0 % [facility] MCV (RBC) [Entitic vol] 83.8 fL 80.0 - 98.0 fL [facility] Platelet mean volume (Bld) [Entitic vol] 9.0 fL 7.4 - 12.4 fL [facility] Platelets (Bld) [#/Vol] 283 10*3/uL 140 - 440 10*3/uL [facility] RBC (Bld) [#/Vol] 4.49 10*6/uL 3.8 - 5.20 10*6/uL [facility] WBC (Bld) [#/Vol] 8.4 10*3/uL 3.6 - 10.7 10*3/uL [facility] Comprehensive metabolic 1998 panelon 03-27-2023 Albumin [Mass/Vol] 4.4 g/dL 3.5 - 5.0 g/dL [facility] ALP [Catalytic activity/Vol] 80 U/L 38 - 126 U/L [facility] ALT [Catalytic activity/Vol] 19 U/L 0 - 34 U/L [facility] Anion gap [Moles/Vol] 8 mmol/L 3 - 13 mmol/L [facility] AST [Catalytic activity/Vol] 25 U/L 15 - 46 U/L [facility] Bilirubin [Mass/Vol] 0.4 mg/dL 0.2 - 1 .3 mg/dL [facility] Calcium [Mass/Vol] 9.2 mg/dL 8.4 - 10. 4 mg/dL [facility] Chloride [Moles/Vol] 105 mmol/L 98 - 10 7 mmol/L [facility] CO2 [Moles/Vol] 25 mmol/L 22 - 30 mmol/L [facility] Creatinine [Mass/Vol] 0.83 mg/dL 0.52 - 1.04 mg/dL [facility] GFR/1.73 sq M.predicted MDRD (S/P/Bld) [Vol rate/Area] - PINF [facility] Comment on above: Calculation based on the Chronic Kidney Disease Epidemiology Collaboration (CKD-EPI) equation refit without adjustment for race Glucose [Mass/Vol] 101 mg/dL High 70 - 100 mg/dL [facility] Interpretation and review of laboratory results Abnormal [facility] Potassium [Moles/Vol] 4.2 mmol/L 3.5 - 5.1 mmol/L [facility] Protein [Mass/Vol] 7.8 g/dL 6.3 - 8.2 g/dL [facility] Sodium [Moles/Vol] 138 mmol/L 135 - 145 mmol/L [facility] Urea nitrogen [Mass/Vol] 11 mg/dL 7 - 17 mg/dL [facility] HCG ( test) Ql (U)O rdered By: Heydi Lowry on 03-27-2023 Beta HCG ( test) Ql (U) [id number] [facility] Interpretation and review of laboratory results Normal [facility] NEGATIVE QC Pass [facility] POSITIVE QC Pass [facility] Preg Test, Ur Negative Negative [facility] Laboratory - Chemistry and C hemistry - challengeon 03-27-2023 Lipase [Catalytic activity/Vol] 113 U/L 23 - 300 U/L [facility] Lipase [Catalytic activity/V ol]on 03-27-2023 Interpretation and review of laboratory results Normal [facility] No Panel Informationon 03-27 [facility] No Panel InformationOrdered By: Victor M Foster on 12-05-2022 P [place] 62 degrees [employer] [facility] Work Phone: SD Interval 151 ms [employer] Work Phone: QRS [place] 19 degrees [employer] Work Phone: QRSD Interval 81 ms [employer] Work Phone: QT Interval 352 ms [facility] Work Phone: QTC Interval 447 ms [employer] Phone: T Wave [place] 26 degrees [employer] Phone: [employer] Phone: No Panel Informationon 12-05 Sinus rhythm Probable left atrial enlargement Electronically Signed On 12-05-2022 20:00:26 EDT by Victor M Foster Victor M Conner MD - 12/05/2022 IMPRESSION: Sinus rhythm Probable left atrial enlargement Electronically Signed On 12-05-2022 20:00:26 EDT by Victor M Foster [employer] Vital signsOrdered By: Mario Foster on 12-05-2022 Heart rate 97 /min bpm [employer] Phone: CR Spine Cervical 2 or 3 Vie wson 11-01-2020 CR Spine Cervical 2 or 3 Views Patient Name: AGUEDA LEWIS Diagnostic Radiology ACCESSION EXAM DATE/TIME PROCEDURE ORDERING PROVIDER [id number] 11/01/2020 20:08 EDT CR Spine Cervical 2 or 3 VIANEY ANN Views CPT code 26383 Reason For Exam (CR Spine Cervical 2 [...] Date and Time: 11/01/2020 8:13 Normal [facility] ED Provider Noteon ED Provider Note Emergency Department Encounter [facility] EMERGENCY DEPT Patient: Agueda Lewis : 1995 Date of Evaluation: 11/01/2020 ED Provider: Vianey Ann PA-C As the [id number], I performed a medical screening history and [...] the upper extremities. Symmetric radial pulses. Decreased mica patcher strength on the right hand compared to [...] [employer] Vianey Ann PA-C 11/01/201952 Normal [facility] ED Provider Note Emergency DepartmentEncounter [facility] Patient: Agueda Lewis : [...] no issues, but cannot feel it moving [place] I was wearing a surgical mask for the entirety of this encounter. Does this patient come from an ECF, SNF, Rehab, Senior Living or other Congregate setting: Home (If yes to above patient needs a Covid-19 test) Agueda Lewis is a 25 y.o. female whopresents to the emergency department today with complaints of numbness and tingling to her right upper extremity. 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 Past History History reviewed. No pertinent past [...] Gatherings with Friends and Family: ? Attends Cheondoism Services: ? Active Member of Clubs or Organizations: ? Attends Club or Organization Meetings: ? Marital Status: Intimate Partner Violence: ? Fear of Current or Ex-Partner: ? Emotionally Abused: ? Physically Abused: ? Sexually Abused: Medications/Allergies Previous Medications No medications on file No Known Allergies Physical Exam ED Triage Vitals BP Temp Temp Source Pulse Resp SpO2 Height Weight 11/01/20 19311/01/20 19311/01/20193611/01/20193611/01/20193611/01/20193611/01/20193511/01/201936 105/76 97.5 ?F (36.4 ?C) Temporal 74 [...] than 2 (more content not included)... Normal [facility] XR CERVICAL SPINE (2-3 VIEWS )Ordered By: Vianey Ann on 11-01-2020 Patient Name: AGUEDA AC Diagnostic Radiology ACCESSION EXAM DATE/TIME PROCEDURE ORDERING PROVIDER [id number] 11/01/2020 20:08 EDT CR Spine Cervical 2 or 3 HAVERCHAK, VIANEY Views CPT code 51827 Reason For Exam (CR Spine Cervical 2 [...] WENDELL Transcribed Date and Time: 11/01/2020 8:13 [facility] Work Phone: [facility] Incoming Radiology Results From [facility] - 11/01/2020 8:16 PM EDT Patient Name: AGUEDA LEWIS Diagnostic Radiology ACCESSION EXAM DATE/TIME PROCEDURE ORDERING PROVIDER [id number] 11/01/2020 20:08 EDT CR Spine Cervical 2 or 3 HAVERCHAK, VIANEY Views CPT code 94605 Reason For Exam (CR Spine Cervical 2 [...] acute osseous abnormality. Report Dictated on Workstation: AMRIA --- Final --- Dictated: 11/01/2020 8:13 pm [...] are unremarkable. IMPRESSION: No acute radiographic abnormality. Java Engineer: PSCB Transcribe Date/Time: Aug 11 2020 3:23A Dictated by : VINCE ECHOLS MD This examination was interpreted and the report reviewed and electronically signed by: VINCE ECHOLS MD on Aug 11 2020 3:25AM EST Normal [facility] XR KNEE 4V AP/PA BOTH+LAT/ME R LTon [...] tissues appear normal. IMPRESSION: Within normal limits. Java Engineer: AMIE Transcribe Date/Time: Jul 27 2020 7:52A Dictated by : MOLLY HARVEY MD This examination was interpreted and the report reviewed and electronically signed by: MOLLY HARVEY MD on Jul 27 2020 7:53AM EST Normal [facility] EMERGENCY REPORTon EMERGENCY REPORT [facility] EMERGENCY ROOM REPORT NAME ACCOUNT SEX AGE ADMIT DISCHARGE PT MED. RECORD# NUMBER DATE DATE TYPE GIOVANNY [id number] F 11/13/19 11/13/19 3 AGUEDA [id number] ROOM: ER DATE OF : 1995 DICTATING [...] of 2 AGUEDA LEWIS Emergency Room Report GAUEDA LEWIS : 1995 studies returned showing a [...] Michele Reynolds MD 11/13/19 13:23 JOB #: [id number] Transcribed By: am 11/13/19 18:28 Electronically signed by: MEHREEN Reynolds M.D. 11/16/19 07:04 Page 2 of 2 AGUEDA LEWIS Emergency Room Report Normal [facility] CBC + DIFFon 11-13-2019 Basophils (Bld) [#/Vol] 0.00 x10EE3/UL Normal 0.00 - 0.10 [facility] Comment on above: Performed By: #### 2 96653 #### [facility],[address] [place] [address]1755 Basophils/100 WBC (Bld) 0.5 % Normal 0.0 - 2.0 [facility] Comment on above: Performed By: #### 2 27892 #### [facility],[address] [place] [address] 60847 CBC + DIFF Normal [facility] Comment on above: Result Comment: CBC- COMPLETE BLOOD COUNT Performed By: #### 2 66712 #### [facility],[address] [place] [address] 70089 Eosinophils (Bld) [#/Vol] 0.20 x10EE3/UL Normal 0.00 - 0.50 [facility] Comment on above: Performed By: #### 2 97728 #### [facility],[address] [place] [address] 24693 Eosinophils/100 WBC (Bld) 2.3 % Normal 0.0 - 7.0 [facility] Comment on above: Performed By: #### 2 97629 #### [facility],[address] [place] [address] 35295 Erythrocyte distribution width (RBC) [Ratio] 16.0 % High 12.0 - 15.6 [facility] Comment on above: Performed By: #### 2 38618 #### [facility],[address] [place] [address] 91172 Hematocrit (Bld) [Volume fraction] 32.5 % Low 34.0 - 46.0 [facility] Comment on above: Performed By: #### 2 84607 #### [facility],[address] [place] [address] 97627 Hemoglobin (Bld) [Mass/Vol] 10.4 g/dL Low 12.0 - 16.0 [facility] Comment on above: Performed By: #### 2 15045 #### [facility],[address] [place] [address] 19639 Lymphocytes (Bld) [#/Vol] 1.40 x10EE3/UL Normal 0.80 - 2.80 [facility] Comment on above: Performed By: #### 2 08514 #### [facility],[address] [place] [address] 92313 Lymphocytes/100 WBC (Bld) 13.4 % Low 20.0 - 45.0 [facility] Comment on above: Performed By: #### 2 54308 #### [facility],[address] [place] [address] MANUAL DIFF N/A Normal [facility] Comment on above: Performed By: #### 2 03935 #### [facility],[address] [place] [address] MCH (RBC) [Entitic mass] 23 pg Low 27 - 33 [facility] Comment on above: Performed By: #### 2 44721 #### [facility],[address] [place] [address] MCHC (RBC) [Mass/Vol] 32 X10 3 Normal 32 - 36 [facility] Comment on above: Performed By: #### 2 01771 #### [facility],[address] [place], [place] [address] MCV (RBC) [Entitic vol] 73 fL Low 80 - 99 [facility] Comment on above: Performed By: #### 2 37119 #### [facility],[address] [place], [place] [address] Monocytes (Bld) [#/Vol] 0.80 x10EE3/UL Normal 0.20 - 1.00 [facility] Comment on above: Performed By: #### 2 89070 #### [facility],[address] [place], [place] [address] MONOS % 7.4 % Normal 0.0 - 10.0 [facility] Comment on above: Performed By: #### 2 13373 #### [facility],[address] [place] [address] 57221 Morphology Adria (Bld) [Interp] N/A Normal [facility] Comment on above: Performed By: #### 2 16283 #### [facility],[address] [place], [place] [address] Neutrophils (Bld) [#/Vol] 7.90 x10EE3/UL High 1.50 - 7.10 [facility] Comment on above: Performed By: #### 2 42126 #### [facility],[address] [place] [address] 36249 Neutrophils/100 WBC (Bld) 76.4 % High 46.0 - 76.0 [facility] Comment on above: Performed By: #### 2 32984 #### [facility],[address] [place] [address] 37639 Platelet mean volume (Bld) [Entitic vol] 9.0 fL Normal 6.6 - 10.5 [facility] Comment on above: Result Comment: AUTO MATED DIFFERENTIAL Performed By: #### 2 60399 #### [address] [address] Platelets (Bld) [#/Vol] 275 x10EE3/UL Normal 150 - 450 [facility] Comment on above: Performed By: #### 2 48623 #### [facility],[address] [place] [address] 26547 RBC (Bld) [#/Vol] 4.47 x 10EE6/UL Normal 4.10 - 5.30 [facility] Comment on above: Performed By: #### 2 14110 #### [facility],[address] [place] [address] 52922 WBC (Bld) [#/Vol] 10.3 x 10EE3/UL Normal 4.5 - 10.[address] [facility] Comment on above: Performed By: #### 2 16093 #### [facility],[address] [place] [address] 27347 CMP with eGFRon 11-13-2019 Age - Reported 24 years Normal [facility] Comment on above: Performed By: #### 2 24873 #### [facility],[address] [place] [address] 94609 Albumin [Mass/Vol] 4.0 g/dL Normal 3.4 - 4.8 [facility] Comment on above: Performed By: #### 2 65852 #### [facility],[address] [place] [address] 32710 Albumin/Globulin [Mass ratio] 1.3 {ratio} Normal 0.9 - 1.6 [facility] Comment on above: Performed By: #### 2 95234 #### [facility],[address] [place] [address] 52211 ALK PHOS 70 U/L Normal 38 - 126 [facility] Comment on above: Performed By: #### 2 95143 #### [facility],[address] [place] [address] 94094 ALT/SGPT 13 U/L Normal 8 - 35 [facility] Comment on above: Performed By: #### 2 17569 #### [facility],[address] [place] [address] 96730 Anion gap [Moles/Vol] 10 mmol/L Normal 10 - 20 [facility] Comment on above: Performed By: #### 2 53859 #### [facility],[address] [place] [address] 92232 AST/SGOT 19 U/L Normal 13 - 39 [facility] Comment on above: Performed By: #### 2 74395 #### [facility],[address] [place] [address]347 B/C RATIO 10 ratio Normal 0 - 30 [facility] Comment on above: Performed By: #### 2 88581 #### [facility],[address] [place] [address] 76886 Bilirubin [Mass/Vol] 0.3 mg/dL Normal 0.0 - 1.5 [facility] Comment on above: Performed By: #### 2 09660 #### [facility],[address] [place] [address] 08073 Calcium [Mass/Vol] 9.1 mg/dL Normal 8.6 - 10.2 [facility] Comment on above: Performed By: #### 2 70319 #### [facility],[address] [place] [address] 20741 Chloride [Moles/Vol] 107 mmol/L Normal 98 - 107 [facility] Comment on above: Performed By: #### 2 34990 #### [facility],[address] [place] [address] 38104 CO2 [Moles/Vol] 24.6 mmol/L Normal 21.0 - 31.0 [facility] Comment on above: Performed By: #### 2 88723 #### [facility],[address] [place] [address] 86883 Creatinine [Mass/Vol] 1.0 mg/dL Normal 0.6 - 1.2 [facility] Comment on above: Performed By: #### 2 29731 #### [facility],[address] [place] [address] 01267 GFR/1.73 sq M predicted among non-blacks MDRD (S/P/Bld) [Vol rate/Area] Normal [facility] Comment on above: Result Comment: COMP REHENSIVE METABOLIC PANEL Performed By: #### 2 75038 #### [address] [address] GFR/1.73 sq M predicted among non-blacks MDRD (S/P/Bld) [Vol rate/Area] mL/min/{1.73_m2} Normal 60 - 999 [facility] Comment on above: Performed By: #### 2 69136 #### [address] [address] Result Comment: ACCO RDING TO THE NATIONAL KIDNEY DISEASE EDUCATION PROGRAM(NKDE), A NORMAL eGFR IS A VALUE GREATER THAN OR EQUAL TO 60 ML/MIN/1.73 SQ METERS. CHRONIC KIDNEY DISEASE: <60mL/MIN/1.73 SQ METERS KIDNEY FAILURE: <15mL/MIN/1.73 SQ METERS THIS TEST SHOULD ONLY BE USED FOR PATIENTS 18 YEARS OF AGE AND OLDER. Globulin (S) [Mass/Vol] 3.0 g/dL Normal 1.5 - 3.8 [facility] Comment on above: Performed By: #### 2 93129 #### [facility],[address] [place] [address] 49373 Glucose [Mass/Vol] 90 mg/dL Normal 74 - 106 [facility] Comment on above: Performed By: #### 2 15307 #### [facility],[address] [place] [address] 52227 Potassium [Moles/Vol] 3.8 mmol/L Normal 3.5 - 5.1 [facility] Comment on above: Performed By: #### 2 32242 #### [facility],[address] [place] [address] 14234 Protein [Mass/Vol] 7.0 g/dL Normal 6.4 - 8.3 [facility] Comment on above: Performed By: #### 2 22386 #### [facility],[address] [place] [address]61 Sodium [Moles/Vol] 138 mmol/L Normal 136 - 145 [facility] Comment on above: Performed By: #### 2 17168 #### [facility],[address] [place] [address]70 Urea nitrogen [Mass/Vol] 10 mg/dL Normal 6 - 20 [facility] Comment on above: Performed By: #### 2 54812 #### [facility],[address] [place] [address] 20932 TSHon 11-13-2019 TSH Qn 0.60 uIU/ml Normal 0.34 - 5.60 [facility] Comment on above: Performed By: #### 2 12150 #### [facility],[address] [place] [address] 89509 URINALYSISon 11-13-2019 Amorphous NONE Normal [facility] Comment on above: Performed By: #### 2 09801 #### [facility],[address] [place] [address] 80000 Bacteria LM.HPF (Urine sed) [#/Area] TRACE Normal [facility] Comment on above: Performed By: #### 2 04226 #### [facility],[address] [place] [address] 82593 Bilirubin [Mass/Vol] Negative Normal NORMAL: NEGATIVE [facility] Comment on above: Performed By: #### 2 63471 #### [facility],[address] [place], [place] [id number] Blood 250 Abnormal NORMAL: NEGATIVE [facility] Comment on above: Performed By: #### 2 40623 #### [facility],[address] [place] [address] Casts LM.LPF (Urine sed) [#/Area] NONE Normal [facility] Comment on above: Performed By: #### 2 60222 #### [facility],[address] [place], [place] [phone] Clarity (U) clear Normal NORMAL: CLEAR [facility] Comment on above: Performed By: #### 2 14801 #### [facility],[address] [place], [place] [phone] Color (U) p.yel Normal NORMAL: YELLOW [facility] Comment on above: Performed By: #### 2 86141 #### [facility],[address] [place], [place] [phone] Crystals LM Nom (Urine sed) NONE Normal [facility] Comment on above: Performed By: #### 2 01236 #### [facility],[address] [place], [place] [phone] Epi Cells OCC Normal [facility] Comment on above: Performed By: #### 2 49476 #### [facility],[address] [place] [address] 70890 Glucose [Mass/Vol] NORM Normal NORMAL: NORMAL [facility] Comment on above: Performed By: #### 2 81272 #### [facility],[address] [place], [place] [phone] Ketone Negative Normal NORMAL: NEGATIVE [facility] Comment on above: Performed By: #### 2 63396 #### [facility],[address] [place] [address] Microscopic SEE BELOW Normal [facility] Comment on above: Result Comment: MICR OSCOPIC Performed By: #### 2 72888 #### [facility],[address] [place] [address] Mucous NONE Normal [facility] Comment on above: Performed By: #### 2 36887 #### [facility],[address] [place] [address] Nitrite Ql (U) Negative Normal NORMAL: NEGATIVE [facility] Comment on above: Performed By: #### 2 17049 #### [facility],[address] [place] [address] pH (Bld) 5 Normal NORMAL: 5.0-8.0 [facility] Comment on above: Performed By: #### 2 16223 #### [facility],[address] [place] [address] Protein (U) [Mass/Vol] Negative Normal JESSICA L: NEGATIVE [facility] Comment on above: Performed By: #### 2 93189 #### [facility],[address] [place] [address] Rbc 0-5 Normal 0-3/hpf [facility] Comment on above: Performed By: #### 2 17389 #### [facility],[address] [place] [address] Sp Pickett 1.010 Normal NORMAL: 1.010-1.030 [facility] Comment on above: Performed By: #### 2 17320 #### [facility],[address] [place] [address] Specimen type Nom (Spec) Void Normal [facility] Comment on above: Performed By: #### 2 45127 #### [facility],[address] [place], [place] [phone] Urobilinog NORM Normal NORMAL: NORMAL [facility] Comment on above: Performed By: #### 2 52708 #### [facility],[address] [place] [address] 97817 Wbc 1-5 Normal 0-5/hpf [facility] Comment on above: Performed By: #### 2 32799 #### [facility],[address] [place] [address] 80510 WBC (Bld) [#/Vol] Negative Normal NORMAL: NEGATIVE [facility] Comment on above: Performed By: #### 2 12330 #### [facility],[address] [place] [address] 96040 Yeast LM Ql (Urine sed) NONE Normal [facility] Comment on above: Performed By: #### 2 26815 #### [facility],[address] [place], [place] [phone] EMERGENCY REPORTon 0 EMERGENCY REPORT [facility] EMERGENCY ROOM REPORT NAME ACCOUNT SEX AGE ADMIT DISCHARGE PT MED. RECORD# NUMBER DATE DATE TYPE GIOVANNY [id number] F 11/05/19 11/05/19 3 AGUEDA [id number] ROOM: ER DATE OF : 1995 DICTATING [...] Marcy Guardado DO 11/05/19 20:35 JOB #: [id number] Transcribed By: sharron 11/05/19 21:55 Electronically signed by: E-Sign: Marcy Guardado D.O. 11/06/19 02:46 Page 2 of 2 AGUEDA LEWIS Emergency Room Report Normal [facility] ALC ETHANOLon 05-13-2017 ALC ETHANOL < 3.0 Normal <10.0 [facility] Comment on above: Order Comment: UNKNO WN Result Comment: UNCO NFIRMED Toxicology results. For MEDICAL purposes only. Performed By: #### L 500.41176, L500.13428, L500.69896 ####Test performed at: [address] [address] BASIC MET PANELon 05-13-2017 Anion gap 12 mmol/L Normal 6-18 [facility] Comment on above: Order Comment: UNKNO WN Performed By: #### L 500.16551, L500.84908, L500.10210 ####Test performed at: [address] [address] Calcium 8.5 mg/dL Normal 8.5-10.1 [facility] Comment on above: Order Comment: UNKNO WN Performed By: #### L 500.97379, L500.13339, L500.14179 ####Test performed at: [address] [address] Chloride 109 mmol/L High 98-107 [facility] Comment on above: Order Comment: UNKNO WN Performed By: #### L 500.42194, L500.99144, L500.09575 ####Test performed at: [place] [address] CO2 24 mmol/L Normal 21-32 [facility] Comment on above: Order Comment: UNKNO WN Performed By: #### L 500.52110, L500.53537, L500.67730 ####Test performed at: [place] [address] Creatinine 0.918 mg/dL Normal 0.550-1.020 [facility] Comment on above: Order Comment: UNKNO WN Performed By: #### L 500.48552, L500.28592, L500.94410 ####Test performed at: [place] [address] Glucose mass conc 84 mg/dL Normal 74-106 [facility] Comment on above: Order Comment: UNKNO WN Performed By: #### L 500.00419, L500.52074, L500.86152 ####Test performed at: [place] [address] OSM 291 mosm/kg Normal 270-300 [facility] Comment on above: Order Comment: UNKNO WN Performed By: #### L 500.07095, L500.71040, L500.40709 ####Test performed at: [address] [address] Potassium molar conc 4.0 mmol/L Normal 3.5-5.1 [facility] Comment on above: Order Comment: UNKNO WN Performed By: #### L 500.65082, L500.10636, L500.80309 ####Test performed at: [place] [address] Sodium 141 mmol/L Normal 136-145 [facility] Comment on above: Order Comment: UNKNO WN Performed By: #### L 500.17493, L500.29460, L500.28859 ####Test performed at: [address] [address] Urea nitrogen 12 mg/dL Normal 7-18 [facility] Comment on above: Order Comment: UNKNO WN Performed By: #### L 500.65201, L500.31873, L500.41989 ####Test performed at: [address] [address] CBC W/DIFFon 05-13-2017 BASO ABS 0.1 K/uL Normal 0.0-0.2 [facility] Comment on above: Order Comment: UNKNO WN Performed By: #### L 500.06826, L500.85738, L500.76115 ####Test performed at: [address] [address] Basophils/100 WBC Auto (Bld) 0.7 % Normal [facility] Comment on above: Order Comment: UNKNO WN Performed By: #### L 500.80686, L500.44726, L500.73993 ####Test performed at: [address] [address] EOS ABS 0.2 K/uL Normal 0.0-0.5 [facility] Comment on above: Order Comment: UNKNO WN Performed By: #### L 500.30025, L500.43092, L500.58579 ####Test performed at: [address] [address] Eosinophils/100 leukocytes 3.0 % Normal [facility] Comment on above: Order Comment: UNKNO WN Performed By: #### L 500.05254, L500.81245, L500.43425 ####Test performed at: [address] [address] Erythrocyte distribution width Auto Ratio (RBC) 15.6 % High 11.5-14.5 [facility] Comment on above: Order Comment: UNKNO WN Performed By: #### L 500.84918, L500.03955, L500.81249 ####Test performed at: [address] [address] Erythrocytes (RBC) 0.000 10*6/uL Normal 0-0.012 [facility] Comment on above: Order Comment: UNKNO WN Performed By: #### L 500.53758, L500.67329, L500.55576 ####Test performed at: [address] [address] Erythrocytes (RBC) 4.05 10*6/uL Normal 3.5-5.5 [facility] Comment on above: Order Comment: UNKNO WN Performed By: #### L 500.00263, L500.48662, L500.74620 ####Test performed at: [place] [address] Hematocrit (HCT) 31.7 % Low 36.0-48.0 [facility] Comment on above: Order Comment: UNKNO WN Performed By: #### L 500.16580, L500.80915, L500.57700 ####Test performed at: [place] [address] Hemoglobin mass conc (Bld) 10.0 g/dL Low 12.0-15.0 [facility] Comment on above: Order Comment: UNKNO WN Performed By: #### L 500.94833, L500.46497, L500.07186 ####Test performed at: [place] [address] IG % 0.3 % Normal [facility] Comment on above: Order Comment: UNKNO WN Performed By: #### L 500.87678, L500.94624, L500.40935 ####Test performed at: [place] [id number] IG ABS 0.02 K/uL Normal 0-0.05 [facility] Comment on above: Order Comment: UNKNO WN Performed By: #### L 500.33616, L500.91850, L500.84039 ####Test performed at: [place] [address] Lymphocytes 2.7 10*3/uL Normal 1.2-3.5 [facility] Comment on above: Order Comment: UNKNO WN Performed By: #### L 500.41852, L500.30899, L500.48816 ####Test performed at: [place] [address] Lymphocytes/100 leukocytes 36.2 % Normal [facility] Comment on above: Order Comment: UNKNO WN Performed By: #### L 500.27437, L500.03589, L500.59620 ####Test performed at: [place] [address] MCH 24.7 pg Low 25.4-34.6 [facility] Comment on above: Order Comment: UNKNO WN Performed By: #### L 500.55591, L500.20164, L500.28449 ####Test performed at: [place] [address] MCHC mass conc (RBC) 31.5 g/dL Normal 31.5-36.5 [facility] Comment on above: Order Comment: UNKNO WN Performed By: #### L 500.53116, L500.71401, L500.82112 ####Test performed at: [place] [address] MCV 78.3 fL Low 79.0-98.0 [facility] Comment on above: Order Comment: UNKNO WN Performed By: #### L 500.28865, L500.97374, L500.16747 ####Test performed at: [address] [address] MONO ABS 0.6 K/uL Normal 0.0-1.0 [facility] Comment on above: Order Comment: UNKNO WN Performed By: #### L 500.51840, L500.87090, L500.55969 ####Test performed at: [address] [address] Monocytes/100 leukocytes 7.7 % Normal [facility] Comment on above: Order Comment: UNKNO WN Performed By: #### L 500.38142, L500.81782, L500.96257 ####Test performed at: [address] [address] Neutrophils 3.8 10*3/uL Normal 1.4-6.6 [facility] Comment on above: Order Comment: UNKNO WN Performed By: #### L 500.09500, L500.01622, L500.61222 ####Test performed at: [address] [address] Neutrophils/100 WBC Auto (Bld) 52.1 % Normal [facility] Comment on above: Order Comment: UNKNO WN Performed By: #### L 500.06638, L500.64637, L500.21641 ####Test performed at: [address] [address] NRBC % 0.0 /100 WBC Normal 0-0.2 [facility] Comment on above: Order Comment: UNKNO WN Performed By: #### L 500.00367, L500.38541, L500.25782 ####Test performed at: [address] [address] Platelet mean volume (PMV) 10.5 fL Normal 8.7-12.4 [facility] Comment on above: Order Comment: UNKNO WN Performed By: #### L 500.91120, L500.24232, L500.75904 ####Test performed at: [address] [address] Platelets 288 10*3/uL Normal 140-440 [facility] Comment on above: Order Comment: UNKNO WN Performed By: #### L 500.59497, L500.17440, L500.18276 ####Test performed at: [address] [address] WBC (Leukocytes) 7.4 10*3/uL Normal 3.9-11.0 [facility] Comment on above: Order Comment: UNKNO WN Performed By: #### L 500.05468, L500.17776, L500.69211 ####Test performed at: [place] [address] EST. CREAT CLRon 05-13-2017 Creatinine 160.543 ML/MIN Normal [facility] Comment on above: Order Comment: UNKNO WN Result Comment: This result is an ESTIMATED blood creatinine clearance valuewhich is derived from the patient age, sex, weight, andprevious blood creatinine result. Performed By: #### L 500.12238, L500.49282, L500.60969 ####Test performed at: [address] [address] Terrell 05-13-2017 FERR 24.7 ng/mL Normal 8-252 [facility] Comment on above: Order Comment: UNKNO WN Performed By: #### L 500.22459, L500.09401, L500.18764 ####Test performed at: [place] [address] GFR ESTIMATEon 05-13-2017 IF AMER > 60 Normal > 60 [facility] Comment on above: Order Comment: UNKNO WN Result Comment: eGFR (Estimated GFR) Units of measure:mL/min/1.73 meters sq.*CALCULATION REVISED 03/10/2015;IDMS-traceable MDRD equationeGFR is derived from the reexpressed MDRD Study equationusing the following parameters: serum creatinine, age,gender and race. An eGFR<60 mL/min/1.73m2 for >3 monthsis consistent with chronic kidney disease. Refer to KDOQIguidelines for clinical interpretation. Performed By: #### L 500.95034, L500.15864, L500.90974 ####Test performed at: [place] [address] IF non-AFR AMER > 60 Normal > 60 [facility] Comment on above: Order Comment: UNKNO WN Performed By: #### L 500.04689, L500.32737, L500.57753 ####Test performed at: [place] [address] IRON PANELon 05-13-2017 Iron 25 ug/dL Low 50-170 [facility] Comment on above: Order Comment: UNKNO WN Performed By: #### L 500.00148, L500.62125, L500.58434 ####Test performed at: [place] [address] IRON SAT 12 % Low 25-35 [facility] Comment on above: Order Comment: UNKNO WN Performed By: #### L 500.16204, L500.43531, L500.64368 ####Test performed at: [place] [address] TIBC 215 ug/dL Low 250-450 [facility] Comment on above: Order Comment: UNKNO WN Performed By: #### L 500.88978, L500.72566, L500.04295 ####Test performed at: [place] [address] LIMIT UR TOXon 05-13-2017 PH TOX 5.0 Normal 5.0-8.0 [facility] Comment on above: Order Comment: UNKNO WN Performed By: #### L 500.54222, L500.80197, L500.82377 ####Test performed at: [address] [address] UR AMPH Negative Normal Negative [facility] Comment on above: Order Comment: UNKNO WN Result Comment: CUTO XT=[id number] Performed By: #### L 500.25596, L500.40095, L500.59681 ####Test performed at: [address] [address] UR NANNETTE Negative Normal Negative [facility] Comment on above: Order Comment: UNKNO WN Result Comment: CUTO VI=617 Performed By: #### L 500.72692, L500.53139, L500.55662 ####Test performed at: [place] [address] UR YANDEL Negative Normal Negative [facility] Comment on above: Order Comment: UNKNO WN Result Comment: CUTO LX=065 Performed By: #### L 500.76892, L500.80679, L500.49072 ####Test performed at: [place] [address] UR BUPREN/NORBU Negative Normal Negative [facility] Comment on above: Order Comment: UNKNO WN Result Comment: CUTO FF=10 Performed By: #### L 500.32937, L500.31520, L500.91102 ####Test performed at: [address] [address] UR RADHA/THC Negative Normal Negative [facility] Comment on above: Order Comment: UNKNO WN Result Comment: CUTO FF=50 Performed By: #### L 500.40269, L500.67075, L500.47021 ####Test performed at: [address] [address] UR PAULO Negative Normal Negative [facility] Comment on above: Order Comment: UNKNO WN Result Comment: CUTO ZB=511 Performed By: #### L 500.37775, L500.72288, L500.77976 ####Test performed at: [address] [address] UR ECSTASY Negative Normal Negative [facility] Comment on above: Order Comment: UNKNO WN Result Comment: CUTO CT=999 Performed By: #### L 500.64195, L500.71618, L500.69752 ####Test performed at: [place] [address] UR METH Negative Normal Negative [facility] Comment on above: Order Comment: UNKNO WN Result Comment: CUTO CU=165 Performed By: #### L 500.45521, L500.47377, L500.37906 ####Test performed at: [place] [address] UR OPIAT Negative Normal Negative [facility] Comment on above: Order Comment: UNKNO WN Result Comment: CUTO ID=[id number] Performed By: #### L 500.98000, L500.24262, L500.30192 ####Test performed at: [place] [address] UR OXYCOCONE Negative Normal Negative [facility] Comment on above: Order Comment: UNKNO WN Result Comment: CUTO FJ=350 Performed By: #### L 500.93359, L500.83423, L500.48168 ####Test performed at: [place] [address] UR PCP Negative Normal Negative [facility] Comment on above: Order Comment: UNKNO WN Result Comment: CUTO FF=25 Performed By: #### L 500.13430, L500.32024, L500.00644 ####Test performed at: [place] [id number] PROTIMEon 05-13-2017 INR Coag RelTime (PPP) 1.08 {INR} Normal 0.00-1.20 [facility] Comment on above: Order Comment: UNKNO WN Result Comment: Amrik mmended therapeutic range is an INR of 2.0-3.0 exceptfor prevention of recurrent acute ME and mechanicalprosthetic heart valve where an INR of 2.5-3.5 isrecommended. Performed By: #### L 500.50232, L500.58276, L500.14180 ####Test performed at: [place] [address] PT SEC 11.0 seconds Normal 9.3-11.2 [facility] Comment on above: Order Comment: UNKNO WN Performed By: #### L 500.86581, L500.22375, L500.11052 ####Test performed at: [place] [address] PTTon 05-13-2017 aPTT 26.3 s Normal 22.8-32.5 [facility] Comment on above: Order Comment: UNKNO WN Performed By: #### L 500.29237, L500.11791, L500.30234 ####Test performed at: [place] [address] TROPONIN QUANTon 05-13-2017 Troponin I.cardiac mass conc ng/mL Normal 0.01-0.045 [facility] Comment on above: Order Comment: UNKNO WN Performed By: #### L 500.80928, L500.56658, L500.68700 ####Test performed at: [place] [address] UA COMPLETEon 05-13-2017 Bilirubin (total) Negative Normal NEGATIVE [facility] Comment on above: Order Comment: UNKNO WN Performed By: #### L 500.07662, L500.09486, L500.27443 ####Test performed at: [address] [address] BLOOD >=1.0 mg/dL Invalid Interpretation Code NEGATIVE [facility] Comment on above: Order Comment: UNKNO WN Performed By: #### L 500.03524, L500.54978, L500.76571 ####Test performed at: [address] [address] EPITH CELLS 6-10 Normal 0-10 [facility] Comment on above: Order Comment: UNKNO WN Performed By: #### L 500.82405, L500.89035, L500.90274 ####Test performed at: [address] [address] Erythrocytes (RBC) 6-10 Invalid Interpretation Code 0-3 [facility] Comment on above: Order Comment: UNKNO WN Performed By: #### L 500.17159, L500.94662, L500.26405 ####Test performed at: [address] [address] Glucose mass conc Negative Normal NEGATIVE [facility] Comment on above: Order Comment: UNKNO WN Performed By: #### L 500.09732, L500.57951, L500.42009 ####Test performed at: [address] [address] KETONE 5 mg/dl Invalid Interpretation Code NEGATIVE [facility] Comment on above: Order Comment: UNKNO WN Performed By: #### L 500.85055, L500.85421, L500.85536 ####Test performed at: [address] [address] LEUK ESTERASE 75 [place]/uL Invalid Interpretation Code NEGATIVE [facility] Comment on above: Order Comment: UNKNO WN Performed By: #### L 500.19000, L500.41283, L500.45938 ####Test performed at: [address] [address] Protein 30 mg/dL Invalid Interpretation Code NEGATIVE [facility] Comment on above: Order Comment: UNKNO WN Performed By: #### L 500.41582, L500.98714, L500.34396 ####Test performed at: [address] [address] SPEC GRAV 1.028 Normal 1.005-1.030 [facility] Comment on above: Order Comment: UNKNO WN Performed By: #### L 500.25675, L500.10637, L500.92424 ####Test performed at: [address] [address] UA ASC ACID Negative Normal [facility] Comment on above: Order Comment: UNKNO WN Performed By: #### L 500.31410, L500.43089, L500.06908 ####Test performed at: [address] [address] UA PH 5.0 Normal 5.0-8.0 [facility] Comment on above: Order Comment: UNKNO WN Performed By: #### L 500.11508, L500.81070, L500.82713 ####Test performed at: [address] [address] Urine, appearance CLOUDY Invalid Interpretation Code CLEAR [facility] Comment on above: Order Comment: UNKNO WN Performed By: #### L 500.27043, L500.37295, L500.95779 ####Test performed at: [address] [address] Urine, color FRANCESCO Invalid Interpretation Code YELLOW [facility] Comment on above: Order Comment: UNKNO WN Performed By: #### L 500.36310, L500.46091, L500.97944 ####Test performed at: [address], [place] [address] Urine, mucus presence in sediment Large Normal [facility] Comment on above: Order Comment: UNKNO WN Performed By: #### L 500.09470, L500.21887, L500.66813 ####Test performed at: [address] [address] Urine, nitrite presence Negative Normal NEGATIVE [facility] Comment on above: Order Comment: UNKNO WN Performed By: #### L 500.40804, L500.42702, L500.95852 ####Test performed at: [address] [address] UROBIL 4.0 mg/dL Invalid Interpretation Code NORMAL [facility] Comment on above: Order Comment: UNKNO WN Performed By: #### L 500.47289, L500.85905, L500.11138 ####Test performed at: [address] [address] WBC (Leukocytes) 6-10 Invalid Interpretation Code 0-5 [facility] Comment on above: Order Comment: UNKNO WN Performed By: #### L 500.24128, L500.06615, L500.49212 ####Test performed at: [address] [address] CBC W/DIFFon 05-12-2017 BASO ABS 0.0 K/uL Normal 0.0-0.2 [facility] Comment on above: Order Comment: UNKNO WN Performed By: #### L 200.68370 ####Test performed at: [address] [address] Basophils/100 WBC Auto (Bld) 0.6 % Normal [facility] Comment on above: Order Comment: UNKNO WN Performed By: #### L 200.52508 ####Test performed at: [address] [address] EOS ABS 0.2 K/uL Normal 0.0-0.5 [facility] Comment on above: Order Comment: UNKNO WN Performed By: #### L 200.53491 ####Test performed at: [address] [address] Eosinophils/100 leukocytes 2.8 % Normal [facility] Comment on above: Order Comment: UNKNO WN Performed By: #### L 200.21237 ####Test performed at: [address] [address] IG % 0.1 % Normal [facility] Comment on above: Order Comment: UNKNO WN Performed By: #### L 200.49877 ####Test performed at: [address] [address] IG ABS 0.01 K/uL Normal 0-0.05 [facility] Comment on above: Order Comment: UNKNO WN Performed By: #### L 200.13579 ####Test performed at: [address] [address] Lymphocytes 2.7 10*3/uL Normal 1.2-3.5 [facility] Comment on above: Order Comment: UNKNO WN Performed By: #### L 200.80288 ####Test performed at: [address] [address] Lymphocytes/100 leukocytes 37.0 % Normal [facility] Comment on above: Order Comment: UNKNO WN Performed By: #### L 200.82053 ####Test performed at: [address] [address] MONO ABS 0.6 K/uL Normal 0.0-1.0 [facility] Comment on above: Order Comment: UNKNO WN Performed By: #### L 200.39613 ####Test performed at: [address] [address] Monocytes/100 leukocytes 8.0 % Normal [facility] Comment on above: Order Comment: UNKNO WN Performed By: #### L 200.92189 ####Test performed at: [address] [address] Neutrophils 3.7 10*3/uL Normal 1.4-6.6 [facility] Comment on above: Order Comment: UNKNO WN Performed By: #### L 200.04132 ####Test performed at: [address] [address] Neutrophils/100 WBC Auto (Bld) 51.5 % Normal [facility] Comment on above: Order Comment: UNKNO WN Performed By: #### L 200.82979 ####Test performed at: [address] [address] Erythrocyte distribution width Auto Ratio (RBC) 15.5 % High 11.5-14.5 [facility] Comment on above: Order Comment: UNKNO WN Performed By: #### L 200.85432 ####Test performed at: [address] [address] Erythrocytes (RBC) 0.000 10*6/uL Normal 0-0.012 [facility] Comment on above: Order Comment: UNKNO WN Performed By: #### L 200.12459 ####Test performed at: [address] [address] Erythrocytes (RBC) 4.20 10*6/uL Normal 3.5-5.5 [facility] Comment on above: Order Comment: UNKNO WN Performed By: #### L 200.67839 ####Test performed at: [address] [address] Hematocrit (HCT) 33.1 % Low 36.0-48.0 [facility] Comment on above: Order Comment: UNKNO WN Performed By: #### L 200.83247 ####Test performed at: [place] [address] Hemoglobin mass conc (Bld) 10.4 g/dL Low 12.0-15.0 [facility] Comment on above: Order Comment: UNKNO WN Result Comment: Delt a: 12.8 on 04/22/17-1445 Performed By: #### L 200.99683 ####Test performed at: [place] [address] MCH 24.8 pg Low 25.4-34.6 [facility] Comment on above: Order Comment: UNKNO WN Performed By: #### L 200.86231 ####Test performed at: [place] [address] MCHC mass conc (RBC) 31.4 g/dL Low 31.5-36.5 [facility] Comment on above: Order Comment: UNKNO WN Performed By: #### L 200.27691 ####Test performed at: [place] [address] MCV 78.8 fL Low 79.0-98.0 [facility] Comment on above: Order Comment: UNKNO WN Performed By: #### L 200.03785 ####Test performed at: [place] [address] NRBC % 0.0 /100 WBC Normal 0-0.2 [facility] Comment on above: Order Comment: UNKNO WN Performed By: #### L 200.96680 ####Test performed at: [place] [address] Platelet mean volume (PMV) 10.6 fL Normal 8.7-12.4 [facility] Comment on above: Order Comment: UNKNO WN Performed By: #### L 200.49658 ####Test performed at: [place] [address] Platelets 318 10*3/uL Normal 140-440 [facility] Comment on above: Order Comment: UNKNO WN Performed By: #### L 200.51785 ####Test performed at: [address] [address] WBC (Leukocytes) 7.2 10*3/uL Normal 3.9-11.0 [facility] Comment on above: Order Comment: UNKNO WN Performed By: #### L 200.77488 ####Test performed at: [address] [address] COMP META PANELon 05-12-2017 Alanine aminotransferase (ALT) 19 U/L Normal 13-61 [facility] Comment on above: Order Comment: UNKNO WN Performed By: #### L 200.73475 ####Test performed at: [place] [address] Albumin 3.0 g/dL Low 3.4-5.0 [facility] Comment on above: Order Comment: UNKNO WN Performed By: #### L 200.76621 ####Test performed at: [address] [address] ALK PHOS TOTAL 93 U/L Normal 45-117 [facility] Comment on above: Order Comment: UNKNO WN Performed By: #### L 200.53036 ####Test performed at: [address] [address] Aspartate aminotransferase (AST) 17 U/L Normal 15-37 [facility] Comment on above: Order Comment: UNKNO WN Performed By: #### L 200.14602 ####Test performed at: [place] [address] BILI TOTAL 0.2 mg/dL Normal 0.2-1.0 [facility] Comment on above: Order Comment: UNKNO WN Performed By: #### L 200.11814 ####Test performed at: [address] [address] Calcium 8.5 mg/dL Normal 8.5-10.1 [facility] Comment on above: Order Comment: UNKNO WN Performed By: #### L 200.55931 ####Test performed at: [address] [address] Chloride 110 mmol/L High 98-107 [facility] Comment on above: Order Comment: UNKNO WN Performed By: #### L 200.66746 ####Test performed at: [address] [address] CO2 24 mmol/L Normal 21-32 [facility] Comment on above: Order Comment: UNKNO WN Performed By: #### L 200.15468 ####Test performed at: [address] [address] Creatinine 1.030 mg/dL High 0.550-1.020 [facility] Comment on above: Order Comment: UNKNO WN Performed By: #### L 200.77843 ####Test performed at: [address] [address] Glucose mass conc 82 mg/dL Normal 74-106 [facility] Comment on above: Order Comment: UNKNO WN Performed By: #### L 200.62610 ####Test performed at: [address] [address] Potassium molar conc 3.8 mmol/L Normal 3.5-5.1 [facility] Comment on above: Order Comment: UNKNO WN Performed By: #### L 200.43904 ####Test performed at: [address] [address] Protein 7.2 g/dL Normal 6.4-8.2 [facility] Comment on above: Order Comment: UNKNO WN Performed By: #### L 200.13366 ####Test performed at: [facility] [address] [place] [address] Sodium 141 mmol/L Normal 136-145 [facility] Comment on above: Order Comment: UNKNO WN Performed By: #### L 200.55461 ####Test performed at: [facility] [address], [place] [address] Urea nitrogen 11 mg/dL Normal 7-18 [facility] Comment on above: Order Comment: UNKNO WN Performed By: #### L 200.43241 ####Test performed at: [facility] [address] [place] [address] THORAX W CON PE PROTOCOLo n 05-12-2017 CT THORAX W CON PE PROTOCOL STUDY:CT THORAX W CON PE PROTOCOL; 05/12/2017 10:15 pmINDICATION:elevated d-dimer, CP.COMPARISON:None.ACCESS ION NUMBER(S):[id number] ERING CLINICIAN:Vince Garnett:Helical data acquisition of the chest [...] pulmonary emboli cannot be entirely excluded. Normal [facility] D-DIMER QUANTon 05-12-2017 D-DIMER QUANT > 5000 High <500 [facility] Comment on above: Order Comment: UNKNO WN Result Comment: The CUT-OFF value for the evaluation of VenousThromboEmbolism (VTE) is <500 ng/mL FEU. Performed By: #### L 500.89239, L500.70539, L500.25041 ####Test performed at: [place] [address] GFR ESTIMATEon 05-12-2017 IF AMER > 60 Normal > 60 [facility] Comment on above: Order Comment: UNKNO WN Result Comment: eGFR (Estimated GFR) Units of measure:mL/min/1.73 meters sq.*CALCULATION REVISED 03/10/2015;IDMS-traceable MDRD equationeGFR is derived from the reexpressed MDRD Study equationusing the following parameters: serum creatinine, age,gender and race. An eGFR<60 mL/min/1.73m2 for >3 monthsis consistent with chronic kidney disease. Refer to KDOQIguidelines for clinical interpretation. Performed By: #### L 200.13578 ####Test performed at: [place] [address] IF non-AFR AMER > 60 Normal > 60 [facility] Comment on above: Order Comment: UNKNO WN Performed By: #### L 200.46952 ####Test performed at: [place] [address] LIMIT UR TOXon 05-12-2017 TOX COMMENT *PLEASE NOTE: Normal [facility] Comment on above: Order Comment: UNKNO WN Result Comment: UNCO NFIRMED Toxicology results. For MEDICAL purposes only. Performed By: #### L 500.49707, L500.66402, L500.35251 ####Test performed at: [place] [address] MGon 05-12-2017 Magnesium 2.0 mg/dL Normal 1.6-2.6 [facility] Comment on above: Order Comment: UNKNO WN Performed By: #### L 200.00455 ####Test performed at: [place] [address] PORTABLE CHESTon 05-12-2017 PORTABLE CHEST STUDY:PORTABLE CHEST ; 05/12/2017 8:54 pmINDICATION:Chest pain .COMPARISON:04/22/2017ACCE SSION NUMBER(S):[id number] RDERING CLINICIAN:Vince Oquendo:The cardiac silhouette is normal in size. No focal airspaceconsolidation or pleural effusion.No pneumothorax.IMPRESSION:N o airspace consolidation or pleural effusion. Normal [facility] TROPONIN QUANTon 05-12-2017 Troponin I.cardiac mass conc ng/mL Normal 0.01-0.045 [facility] Comment on above: Order Comment: UNKNO WN Performed By: #### L 200.92052 ####Test performed at: [place] [address] UR HCG QUALon 05-12-2017 UR HCG QUAL Negative Normal [facility] Comment on above: Order Comment: UNKNO WN Performed By: #### L 500.53103, L500.48259, L500.42025 ####Test performed at: [place] [address] EKGon 04-25-2017 EKG Acquired on 04/22/20 17 1419Vent. Rate : 064 BPM Atrial Rate : 064 BPMP-R Int : 134 ms QRS Dur : 070 msQT Int : 400 ms P-R-T Axes : 022 037 031 degreesQTc Int : 412 msNormal sinus rhythmNormal ECGNo previous ECGs availableConfirmed by SHARON MCKEON MD ([id number]) on 04/25/2017 9:44:10 AMReferred By: Confirmed By:SHARON MCKEON [id number] 2016 [facility] PT NAME: AGUEDA LEWISMR#: [id number] [place] [address] ACCT: [id number]: 94EKG REPORT Normal [facility] 13 DRUG PM TOXon 04-22-2017 13 DRUG PM SUM NotDone Normal [facility] Comment on above: Order Comment: UNKNO WN Result Comment: TEST (S): 13 DRUG PM SUM COMMENT: OE CAN REQ PERSON NOTIFIED: Mesfin MCINTOSHCANCELLED: 04/22/17 at 1555 by GLBCAT. Locn:LCA Performed By: #### L 600.16071, L600.53980 ####Test performed at: [place] [address]#### L600.99152 ####Test performed at: [facility] [id number] [place], [place] [address] CBC W/DIFFon 04-22-2017 BASO ABS 0.0 K/uL Normal 0.0-0.2 [facility] Comment on above: Order Comment: UNKNO WN Performed By: #### L 200.91313 ####Test performed at: [address] [address] Basophils/100 WBC Auto (Bld) 0.4 % Normal [facility] Comment on above: Order Comment: UNKNO WN Performed By: #### L 200.16583 ####Test performed at: [address] [address] EOS ABS 0.2 K/uL Normal 0.0-0.5 [facility] Comment on above: Order Comment: UNKNO WN Performed By: #### L 200.49718 ####Test performed at: [address] [address] Eosinophils/100 leukocytes 1.7 % Normal [facility] Comment on above: Order Comment: UNKNO WN Performed By: #### L 200.41780 ####Test performed at: [place] [address] Erythrocyte distribution width Auto Ratio (RBC) 16.9 % High 11.5-14.5 [facility] Comment on above: Order Comment: UNKNO WN Performed By: #### L 200.40654 ####Test performed at: [place] [address] Erythrocytes (RBC) 5.08 10*6/uL Normal 3.5-5.5 [facility] Comment on above: Order Comment: UNKNO WN Performed By: #### L 200.22947 ####Test performed at: [place] [address] Erythrocytes (RBC) 0.000 10*6/uL Normal 0-0.012 [facility] Comment on above: Order Comment: UNKNO WN Performed By: #### L 200.60352 ####Test performed at: [place] [address] Hematocrit (HCT) 40.7 % Normal 36.0-48.0 [facility] Comment on above: Order Comment: UNKNO WN Performed By: #### L 200.55752 ####Test performed at: [place] [address] Hemoglobin mass conc (Bld) 12.8 g/dL Normal 12.0-15.0 [facility] Comment on above: Order Comment: UNKNO WN Performed By: #### L 200.87024 ####Test performed at: [place] [address] IG % 1.0 % Normal [facility] Comment on above: Order Comment: UNKNO WN Performed By: #### L 200.66412 ####Test performed at: [place] [address] IG ABS 0.09 K/uL High 0-0.05 [facility] Comment on above: Order Comment: UNKNO WN Performed By: #### L 200.87960 ####Test performed at: [place] [address] Lymphocytes 2.6 10*3/uL Normal 1.2-3.5 [facility] Comment on above: Order Comment: UNKNO WN Performed By: #### L 200.32220 ####Test performed at: [place] [address] Lymphocytes/100 leukocytes 27.7 % Normal [facility] Comment on above: Order Comment: UNKNO WN Performed By: #### L 200.34113 ####Test performed at: [place] [address] MCH 25.2 pg Low 25.4-34.6 [facility] Comment on above: Order Comment: UNKNO WN Performed By: #### L 200.77808 ####Test performed at: [place] [address] MCHC mass conc (RBC) 31.4 g/dL Low 31.5-36.5 [facility] Comment on above: Order Comment: UNKNO WN Performed By: #### L 200.15123 ####Test performed at: [place] [address] MCV 80.1 fL Normal 79.0-98.0 [facility] Comment on above: Order Comment: UNKNO WN Performed By: #### L 200.60471 ####Test performed at: [place] [address] MONO ABS 0.6 K/uL Normal 0.0-1.0 [facility] Comment on above: Order Comment: UNKNO WN Performed By: #### L 200.82402 ####Test performed at: [address] [address] Monocytes/100 leukocytes 5.9 % Normal [facility] Comment on above: Order Comment: UNKNO WN Performed By: #### L 200.71270 ####Test performed at: [address] [address] Neutrophils 5.9 10*3/uL Normal 1.4-6.6 [facility] Comment on above: Order Comment: UNKNO WN Performed By: #### L 200.74989 ####Test performed at: [address] [address] Neutrophils/100 WBC Auto (Bld) 63.3 % Normal [facility] Comment on above: Order Comment: UNKNO WN Performed By: #### L 200.80011 ####Test performed at: [address] [address] NRBC % 0.0 /100 WBC Normal 0-0.2 [facility] Comment on above: Order Comment: UNKNO WN Performed By: #### L 200.67735 ####Test performed at: [address] [address] Platelet mean volume (PMV) 10.8 fL Normal 8.7-12.4 [facility] Comment on above: Order Comment: UNKNO WN Performed By: #### L 200.01655 ####Test performed at: [address] [address] Platelets 325 10*3/uL Normal 140-440 [facility] Comment on above: Order Comment: UNKNO WN Performed By: #### L 200.40824 ####Test performed at: [address] [address] WBC (Leukocytes) 9.3 10*3/uL Normal 3.9-11.0 [facility] Comment on above: Order Comment: UNKNO WN Performed By: #### L 200.24145 ####Test performed at: [address] [address] COMP META PANELon 04-22-2017 Alanine aminotransferase (ALT) 31 U/L Normal 13-61 [facility] Comment on above: Order Comment: UNKNO WN Performed By: #### L 500.75238, L500.91604, L500.19151 ####Test performed at: [address] [address] Albumin 4.1 g/dL Normal 3.4-5.0 [facility] Comment on above: Order Comment: UNKNO WN Performed By: #### L 500.05903, L500.19721, L500.17371 ####Test performed at: [place] [address] ALK PHOS TOTAL 126 U/L High 45-117 [facility] Comment on above: Order Comment: UNKNO WN Performed By: #### L 500.73256, L500.43062, L500.65867 ####Test performed at: [place] [address] Aspartate aminotransferase (AST) 23 U/L Normal 15-37 [facility] Comment on above: Order Comment: UNKNO WN Performed By: #### L 500.89010, L500.71411, L500.73673 ####Test performed at: [address] [address] BILI TOTAL 0.4 mg/dL Normal 0.2-1.0 [facility] Comment on above: Order Comment: UNKNO WN Performed By: #### L 500.61235, L500.43704, L500.09768 ####Test performed at: [address] [address] Calcium 9.4 mg/dL Normal 8.5-10.1 [facility] Comment on above: Order Comment: UNKNO WN Performed By: #### L 500.40295, L500.73055, L500.21115 ####Test performed at: [address] [address] Chloride 109 mmol/L High 98-107 [facility] Comment on above: Order Comment: UNKNO WN Performed By: #### L 500.15261, L500.28428, L500.40732 ####Test performed at: [address] [address] CO2 22 mmol/L Normal 21-32 [facility] Comment on above: Order Comment: UNKNO WN Performed By: #### L 500.90336, L500.03334, L500.25991 ####Test performed at: [address] [address] Creatinine 1.040 mg/dL High 0.550-1.020 [facility] Comment on above: Order Comment: UNKNO WN Performed By: #### L 500.04408, L500.72697, L500.46969 ####Test performed at: [address] [address] Glucose mass conc 79 mg/dL Normal 74-106 [facility] Comment on above: Order Comment: UNKNO WN Performed By: #### L 500.95871, L500.69431, L500.59751 ####Test performed at: [address] [address] Potassium molar conc 4.2 mmol/L Normal 3.5-5.1 [facility] Comment on above: Order Comment: UNKNO WN Performed By: #### L 500.72346, L500.76576, L500.10530 ####Test performed at: [address] [address] Protein 8.5 g/dL High 6.4-8.2 [facility] Comment on above: Order Comment: UNKNO WN Performed By: #### L 500.08795, L500.81152, L500.01029 ####Test performed at: [address] [address] Sodium 140 mmol/L Normal 136-145 [facility] Comment on above: Order Comment: UNKNO WN Performed By: #### L 500.97971, L500.69965, L500.62070 ####Test performed at: [address] [address] Urea nitrogen 11 mg/dL Normal 7-18 [facility] Comment on above: Order Comment: UNKNO WN Performed By: #### L 500.46320, L500.65614, L500.03078 ####Test performed at: [place] [address] CT HEAD/BRAIN WO CONon 04-22 CT HEAD/BRAIN WO CON STUDY:CT HEAD/BRAIN WO CON; 04/22/2017 3:25 pmINDICATION:head pain .COMPARISON:None.ACCESSIO N NUMBER(S):[id number] NAWAF CLINICIAN:Vince Garnett:CT of the brain from the [...] other extracranial softtissues.IMPRESSION:NO ACUTE INTRACRANIAL PROCESS Normal [facility] CT SINUSES/FACIAL WO CONon 1 06-23-2016 CT SINUSES/FACIAL WO CON STUDY:CT SINUSES/FACIAL WO CON; 04/22/2017 3:36 pmINDICATION:laveration, facial pain .COMPARISON:None.ACCESSIO N NUMBER(S):[id number] RDERING CLINICIAN:Vince Garnett:CT maxillofacial bones without intravenous contrastFINDINGS:The maxillofacial bones are intact and in good alignment throughout.Soft tissues grossly intact. No large skin defect, subcutaneousradiopaque foreign body or subcutaneous gasSmall mucous retention cysts or polyps in both maxillary sinuses.Elsewhere the sinuses are completely clearIMPRESSION:NO ACUTE FRACTURE OR SUBLUXATION Normal [facility] EKGon 04-22-2017 EKG Acquired on 04/22/20 17 1419Vent. Rate : 064 BPM Atrial Rate : 064 BPMP-R Int : 134 ms QRS Dur : 070 msQT Int : 400 ms P-R-T Axes : 022 037 031 degreesQTc Int : 412 msNormal sinus rhythmNormal ECGNo previous ECGs availableConfirmed by SHARON MCKEON MD ([id number]) on 04/25/2017 9:44:10 AMReferred By: Confirmed By:SHARON MCKEON [id number] 2016 [facility] PT NAME: AGUEDA LEWIS#: [id number] [place] [address] ACCT: [id number]: 94EK REPORT Normal [facility] GFR ESTIMATEon 04-22-2017 IF AMER > 60 Normal > 60 [facility] Comment on above: Order Comment: UNKNO WN Result Comment: eGFR (Estimated GFR) Units of measure:mL/min/1.73 meters sq.*CALCULATION REVISED 03/10/2015;IDMS-traceable MDRD equationeGFR is derived from the reexpressed MDRD Study equationusing the following parameters: serum creatinine, age,gender and race. An eGFR<60 mL/min/1.73m2 for >3 monthsis consistent with chronic kidney disease. Refer to KDOQIguidelines for clinical interpretation. Performed By: #### L 500.53462, L500.85015, L500.15788 ####Test performed at: [place] [address] IF non-AFR AMER > 60 Normal > 60 [facility] Comment on above: Order Comment: UNKNO WN Performed By: #### L 500.49083, L500.47036, L500.81532 ####Test performed at: [place] [address] LIMIT UR TOXon 04-22-2017 UR AMPH Negative Normal Negative [facility] Comment on above: Order Comment: UNKNO WN Result Comment: CUTO SF=8401 Performed By: #### L 200.89040 ####Test performed at: [place] [address] UR NANNETTE Negative Normal Negative [facility] Comment on above: Order Comment: UNKNO WN Result Comment: CUTO NQ=259 Performed By: #### L 200.91742 ####Test performed at: [place] [address] UR YANDEL Negative Normal Negative [facility] Comment on above: Order Comment: UNKNO WN Result Comment: CUTO HD=715 Performed By: #### L 200.61331 ####Test performed at: [place] [address] UR RADHA/THC Negative Normal Negative [facility] Comment on above: Order Comment: UNKNO WN Result Comment: CUTO FF=50 Performed By: #### L 200.57105 ####Test performed at: [place] [address] UR PAULO Negative Normal Negative [facility] Comment on above: Order Comment: UNKNO WN Result Comment: CUTO FA=266 Performed By: #### L 200.38846 ####Test performed at: [place] [address] [address] UR ECSTASY Negative Normal Negative [facility] Comment on above: Order Comment: UNKNO WN Result Comment: CUTO QY=427 Performed By: #### L 200.89246 ####Test performed at: [address] [address] UR METH Negative Normal Negative [facility] Comment on above: Order Comment: UNKNO WN Result Comment: CUTO EX=237 Performed By: #### L 200.91809 ####Test performed at: [place] [address] UR OPIAT Negative Normal Negative [facility] Comment on above: Order Comment: UNKNO WN Result Comment: CUTO ST=762 Performed By: #### L 200.83172 ####Test performed at: [address] [address] UR OXYCOCONE Negative Normal Negative [facility] Comment on above: Order Comment: UNKNO WN Result Comment: CUTO NG=712 Performed By: #### L 200.95640 ####Test performed at: [address] [address] UR PCP Negative Normal Negative [facility] Comment on above: Order Comment: UNKNO WN Result Comment: CUTO FF=25 Performed By: #### L 200.20706 ####Test performed at: [address] [address] PH TOX 5.0 Normal 5.0-8.0 [facility] Comment on above: Order Comment: UNKNO WN Performed By: #### L 200.19035 ####Test performed at: [address] [address] TOX COMMENT *PLEASE NOTE: Normal [facility] Comment on above: Order Comment: UNKNO WN Result Comment: UNCO NFIRMED Toxicology results. For MEDICAL purposes only. Performed By: #### L 200.08095 ####Test performed at: [place] [address] PORTABLE CHESTon 04-22-2017 PORTABLE CHEST STUDY:PORTABLE CHEST ; 04/22/2017 2:15 pmINDICATION:dizzy.COMPAR PRINCE:None. RDERING CLINICIAN:Vince Oquendo:CARDIOMEDI ASTINAL SILHOUETTE:Cardiomediasti nal silhouette is normal in size and configuration.LUNGS:Lungs are clear.ABDOMEN:No remarkable upper abdominal findings.BONES:No acute osseous changes.IMPRESSION:No evidence of acute cardiopulmonary process. Normal [facility] TROPONIN QUANTon 04-22-2017 Troponin I.cardiac mass conc ng/mL Normal 0.01-0.045 [facility] Comment on above: Order Comment: UNKNO WN Performed By: #### L 500.93065, L500.63197, L500.09991 ####Test performed at: [place] [address] UA COMPLETEon 04-22-2017 AMORPHOUS CRYST Trace Normal [facility] Comment on above: Order Comment: UNKNO WN Performed By: #### L 600.60727, L600.19576 ####Test performed at: [place] [address]#### L600.16925 ####Test performed at: [facility] [id number] [address] Bilirubin (total) Negative Normal NEGATIVE [facility] Comment on above: Order Comment: UNKNO WN Performed By: #### L 600.21867, L600.61902 ####Test performed at: [place] [address]#### L600.64035 ####Test performed at: [facility] [id number] [address] [place] [phone] BLOOD >=1.0 mg/dL Invalid Interpretation Code NEGATIVE [facility] Comment on above: Order Comment: UNKNO WN Performed By: #### L 600.61258, L600.77794 ####Test performed at: [place] [address]#### L600.00544 ####Test performed at: [facility] [id number] [address] [place], [place] [address] EPITH CELLS 6-10 Normal 0-10 [facility] Comment on above: Order Comment: UNKNO WN Performed By: #### L 600.86149, L600.30645 ####Test performed at: [place] [address]#### L600.18278 ####Test performed at: [facility] [id number] [address] [place], [place] [address] Erythrocytes (RBC) 21-50 Invalid Interpretation Code 0-3 [facility] Comment on above: Order Comment: UNKNO WN Performed By: #### L 600.67435, L600.18828 ####Test performed at: [place] [address]#### L600.65416 ####Test performed at: [facility] [id number] [address] Glucose mass conc Negative Normal NEGATIVE [facility] Comment on above: Order Comment: UNKNO WN Performed By: #### L 600.91978, L600.62712 ####Test performed at: [place] [address]#### L600.41128 ####Test performed at: [facility] [id number] [address] KETONE Negative Normal NEGATIVE [facility] Comment on above: Order Comment: UNKNO WN Performed By: #### L 600.58045, L600.37726 ####Test performed at: [place] [address]#### L600.01083 ####Test performed at: [facility] [id number] [address] LEUK ESTERASE 25 [place]/uL Invalid Interpretation Code NEGATIVE [facility] Comment on above: Order Comment: UNKNO WN Performed By: #### L 600.81505, L600.01572 ####Test performed at: [place] [address]#### L600.12213 ####Test performed at: [facility] [id number] [address] Protein Negative Normal NEGATIVE [facility] Comment on above: Order Comment: UNKNO WN Performed By: #### L 600.83094, L600.56272 ####Test performed at: [place] [address]#### L600.47065 ####Test performed at: [facility] [id number] [address] SPEC GRAV 1.011 Normal 1.005-1.030 [facility] Comment on above: Order Comment: UNKNO WN Performed By: #### L 600.62225, L600.90054 ####Test performed at: [place] [address]#### L600.09769 ####Test performed at: [facility] [id number] [address] UA ASC ACID Negative Normal [facility] Comment on above: Order Comment: UNKNO WN Performed By: #### L 600.69187, L600.71165 ####Test performed at: [place] [address]#### L600.86647 ####Test performed at: [facility] [id number] [address] UA PH 5.0 Normal 5.0-8.0 [facility] Comment on above: Order Comment: UNKNO WN Performed By: #### L 600.67260, L600.10918 ####Test performed at: [place] [address]#### L600.63479 ####Test performed at: [facility] [id number] [address] [place] [address] Urine, appearance CLEAR Normal CLEAR [facility] Comment on above: Order Comment: UNKNO WN Performed By: #### L 600.78576, L600.01990 ####Test performed at: [place] [address]#### L600.93070 ####Test performed at: [facility] [id number] [address] [place] [address] Urine, bacteria in sediment Small Invalid Interpretation Code NONE OBSERV [facility] Comment on above: Order Comment: UNKNO WN Performed By: #### L 600.05068, L600.05962 ####Test performed at: [place] [address]#### L600.09374 ####Test performed at: [facility] [id number] [address] [place] [address] Urine, color YELLOW Normal YELLOW [facility] Comment on above: Order Comment: UNKNO WN Performed By: #### L 600.96909, L600.20523 ####Test performed at: [place] [address]#### L600.94252 ####Test performed at: [facility] [id number] [address] [place], [place] [address] Urine, mucus presence in sediment Small Normal [facility] Comment on above: Order Comment: UNKNO WN Performed By: #### L 600.32702, L600.76308 ####Test performed at: [place] [address]#### L600.75513 ####Test performed at: [facility] [id number] [address] Urine, nitrite presence Negative Normal NEGATIVE [facility] Comment on above: Order Comment: UNKNO WN Performed By: #### L 600.64164, L600.73338 ####Test performed at: [place] [address]#### L600.60674 ####Test performed at: [facility] [id number] [address] [place], [place] [address] UROBIL NORMAL Normal NORMAL [facility] Comment on above: Order Comment: UNKNO WN Performed By: #### L 600.34449, L600.86634 ####Test performed at: [place] [address]#### L600.77984 ####Test performed at: [facility] [id number] [address] [place] [address] WBC (Leukocytes) 11-15 Invalid Interpretation Code 0-5 [facility] Comment on above: Order Comment: UNKNO WN Performed By: #### L 600.53874, L600.39274 ####Test performed at: [place] [address]#### L600.38999 ####Test performed at: [facility] [id number] [address] [place] [address] UR HCG QUALon 04-22-2017 UR HCG QUAL Negative Normal [facility] Comment on above: Order Comment: UNKNO WN Performed By: #### L 600.65360, L600.17695 ####Test performed at: [place] [address]#### L600.16898 ####Test performed at: [facility] [id number] [address] [place] [address] GC + CHLAMYDIA BY AMPLIFIED DETECTIONon 03-09-2017 CHLAMYDIA TRACH.,AMPLIFIED Positive Abnormal NEGATIVE [facility] Comment on above: Result Comment: Perf ormance characteristics for Chlamydia trachomatis testing on femaleurine samples has been validated by [facility].Testing on this sample type is not FDA-approved, but such approval is notnecessary. This laboratory is certified by CLIA to perform high complexitytesting. Performed By: #### B LCV1 ####[facility] [place] [address] N.GONORRHEA,AMPLIFIED Negative Normal NEGATIVE [facility] Comment on above: Result Comment: Perf ormance characteristics for Neisseria gonorrhoeae testing on femaleurine samples has been validated by [facility].Testing on this sample type is not FDA-approved, but such approval is notnecessary. This laboratory is certified by CLIA to perform high complexitytesting. Performed By: #### B LCV1 ####[facility] [place] [address] RUBELLA IGG ABon 03-09-2017 RUBELLA IGG AB 25.4 IU/ML Normal [facility] Comment on above: Result Comment: REF VALUESNON-IMMUNE: < 5EQUIVOCAL: 5-9IMMUNE: >=10 Performed By: #### B LCV1 ####[facility] [place] [address] TYPE + SCREENon 03-08-2017 ABO TYPE Canceled Normal [facility] Comment on above: Order Comment: TEST TYPE + SCREEN WAS CANCELLED, 03/07/2017 10:18 ?Cancel Reason: PatientDischarged. Performed By: #### B LCV1 ####[facility] [place] [address] ANTIBODY SCREEN Canceled Normal [facility] Comment on above: Order Comment: TEST TYPE + SCREEN WAS CANCELLED, 03/07/2017 10:18 ?Cancel Reason: PatientDischarged. Performed By: #### B LCV1 ####[facility] [place] [address] RH TYPE Canceled Normal [facility] Comment on above: Order Comment: TEST TYPE + SCREEN WAS CANCELLED, 03/07/2017 10:18 ?Cancel Reason: PatientDischarged. Performed By: #### B LCV1 ####[facility] [place] [address] CBCon 03-07-2017 Erythrocyte distribution width Auto Ratio (RBC) 15.2 % High 11.5 - 14.5 [facility] Comment on above: Performed By: #### C BC ####[facility] [place] [address] Erythrocytes (RBC) 4.71 x10E12/L Normal 4.00 - 5.20 [facility] Comment on above: Performed By: #### C BC ####[facility] [place] [address] Hematocrit (HCT) 37.8 % Normal 36.0 - 46.0 [facility] Comment on above: Performed By: #### C BC ####[facility] [place] [address] Hemoglobin mass conc (Bld) 11.5 g/dL Low 12.0 - 16.0 [facility] Comment on above: Performed By: #### C BC ####[facility] [place] [address] MCHC mass conc (RBC) 30.4 g/dL Low 32.0 - 36.0 [facility] Comment on above: Performed By: #### C BC ####[facility] [place] [address] MCV 80 fL Normal 80 - 100 [facility] Comment on above: Performed By: #### C BC ####[facility] [place] [address] Nucleated erythrocytes 0.0 /100 WBC Normal 0.0-0.0 [facility] Comment on above: Performed By: #### C BC ####[facility] [place] [address] Platelets 206 10*3/uL Normal 150 - 450 [facility] Comment on above: Performed By: #### C BC ####[facility] [place] [address] WBC (Leukocytes) 9.0 10*3/uL Normal 4.4 - 11.3 [facility] Comment on above: Performed By: #### C BC ####[facility] [place] [address] COMPREHENSIVE PANELon 2016 Alanine aminotransferase (ALT) 11 U/L Normal 7 - 45 [facility] Comment on above: Result Comment: Laureen ents treated with Sulfasalazine may generate falsely decreased results for ALT. Performed By: #### C MP ####[facility] [place] [address] Albumin 3.2 g/dL Low 3.4 - 5.0 [facility] Comment on above: Performed By: #### C MP ####[facility] [place] [address] Alkaline phosphatase (ALP) 224 U/L High 33 - 110 [facility] Comment on above: Performed By: #### C MP ####[facility] [place] [address] Anion gap 16 mmol/L Normal 10 - 20 [facility] Comment on above: Performed By: #### C MP ####[facility] [place] [address] Aspartate aminotransferase (AST) 25 U/L Normal 9 - 39 [facility] Comment on above: Result Comment: MILD HEMOLYSIS DETECTED. The result may be falsely elevated due tohemolysis or other interferents. Clinical correlation is recommended.Repeat testing may be considered. Performed By: #### C MP ####[facility] [place] [address] Bicarbonate (HCO3) 18 mmol/L Low 21 - 32 [facility] Comment on above: Performed By: #### C MP ####[facility] [place] [address] Bilirubin (total) 0.3 mg/dL Normal 0.0 - 1.2 [facility] Comment on above: Performed By: #### C MP ####[facility] [place] [address] Calcium 9.1 mg/dL Normal 8.6 - 10.6 [facility] Comment on above: Performed By: #### C MP ####[facility] [place] [address] Chloride 109 mmol/L High 98 - 107 [facility] Comment on above: Performed By: #### C MP ####[facility] [place] [address] Creatinine 0.65 mg/dL Normal 0.50 - 1.05 [facility] Comment on above: Performed By: #### C MP ####[facility] [place] [address] eGFR (non-black) mL/min/{1.73_m2} Normal >60 [facility] Comment on above: Result Comment: CALC ULATIONS OF ESTIMATED GFR ARE PERFORMED USING THE MDRD STUDY EQUATION FOR THE IDMS-TRACEABLE CREATININE METHODS. CLIN CHEM 2007;53:766-72 Performed By: #### C MP ####[facility] [place] [address] Glucose mass conc 52 mg/dL Low 74 - 99 [facility] Comment on above: Performed By: #### C MP ####[facility] [place] [address] Potassium molar conc 4.2 mmol/L Normal 3.5 - 5.3 [facility] Comment on above: Result Comment: MILD HEMOLYSIS DETECTED. The result may be falsely elevated due tohemolysis or other interferents. Clinical correlation is recommended.Repeat testing may be considered. Performed By: #### C MP ####[facility] [place] [address] Protein 6.5 g/dL Normal 6.4 - 8.2 [facility] Comment on above: Performed By: #### C MP ####[facility] [place] [address] Sodium 139 mmol/L Normal 136 - 145 [facility] Comment on above: Performed By: #### C MP ####[facility] [place] [address] Urea nitrogen 6 mg/dL Normal 6 - 23 [facility] Comment on above: Performed By: #### C MP ####[facility] [place] [address] CORD PLACENTA ARTERIAL BLOOD GASon 03-07-2017 BASE EXCESS-BLOOD -2.3 mmol/L Normal -10.8 - -0.5 [facility] Comment on above: Performed By: #### B LCA1 ####[facility] [place] [address] Body temperature 37.0 degrees C Normal [facility] Comment on above: Result Comment: NOTE : PATIENT RESULTS ARE NOT CORRECTED FOR TEMPERATURE. Performed By: #### B LCA1 ####[facility] [place] [address] CO2 47 mmHg Normal 31 - 75 [facility] Comment on above: Performed By: #### B LCA1 ####[facility])[address] [place] [address] Erythrocytes (RBC) 24.2 mmol/L Normal 15.0 - 29.0 [facility] Comment on above: Performed By: #### B LCA1 ####[facility] [place] [address] Oxygen in arterial blood 14 mm[Hg] Normal 5 - 31 [facility] Comment on above: Performed By: #### B LCA1 ####[facility] [place] [address] pH of blood 7.32 [pH] Normal 7.08 - 7.39 [facility] Comment on above: Performed By: #### B LCA1 ####[facility] [place] [address] SO2 27 % Normal 3 - 69 [facility] Comment on above: Performed By: #### B LCA1 ####[facility] [place] [address] CORD PLACENTA VENOUS BLOOD G ASon 03-07-2017 BASE EXCESS-BLOOD -3.3 mmol/L Normal -8.1 - -0.5 [facility] Comment on above: Performed By: #### B LCV1 ####[facility] [place] [address] Body temperature 37.0 degrees C Normal [facility] Comment on above: Result Comment: NOTE : PATIENT RESULTS ARE NOT CORRECTED FOR TEMPERATURE. Performed By: #### B LCV1 ####[facility] [place] [address] CO2 37 mmHg Normal 22 - 53 [facility] Comment on above: Performed By: #### B LCV1 ####[facility] [place] [address] Erythrocytes (RBC) 21.4 mmol/L Normal 16.0 - 26.0 [facility] Comment on above: Performed By: #### B LCV1 ####[facility] [place] [address] Oxygen in arterial blood 21 mm[Hg] Normal 13 - 37 [facility] Comment on above: Performed By: #### B LCV1 ####[facility] [place] [address] pH of blood 7.37 [pH] Normal 7.19 - 7.47 [facility] Comment on above: Performed By: #### B LCV1 ####[facility] [place] [address] SO2 56 % Normal 16 - 84 [facility] Comment on above: Performed By: #### B LCV1 ####[facility] [place] [address] DRUG SCREEN,URINEon 03-07-20 17 COCAINE METABOLITE Negative Normal NEGATIVE [facility] Comment on above: Result Comment: CUTO FF LEVEL: 150 NG/ML Radial Drill Press Set Up Operator drug: Benzoylecgonine(cocaine metabolite) Performed By: #### D RUG3 ####[facility] [place] [address] DRUG SCREEN COMMENT SEE BELOW Normal [facility] Comment on above: Result Comment: POSI TIVE CUTOFFS ARE BASED ON REACTIVITY WITH A CLINICAL SCIENCES PROFESSOR MEMBER OF DRUG CLASS. MEMBERS OF THE [...] TESTING OR PATHOLOGIST CONSULTATION, CALL LABORATORY AT [phone]. Performed By: #### D RUG3 ####[facility] [place] [address] OXYCODONE Negative Normal NEGATIVE [facility] Comment on above: Result Comment: CUTO FF LEVEL:100 NG/ML Radial Drill Press Set Up Operator drug: Oxycodone This test will accurately detect both oxycodone and oxymorphone. Performed By: #### D RUG3 ####[facility] [place] [address] PCP Negative Normal NEGATIVE [facility] Comment on above: Result Comment: CUTO FF LEVEL: 25 NG/ML Radial Drill Press Set Up Operator drug: Phencyclidine(PCP) Cross-reactivity has been reported with dextromethorphan. Performed By: #### D RUG3 ####[facility] [id number] URINE BARBITURATES Negative Normal NEGATIVE [facility] Comment on above: Result Comment: CUTO FF LEVEL:200 NG/ML Radial Drill Press Set Up Operator drug: Secobarbital Performed By: #### D RUG3 ####[facility] [place] [address] Urine, amphetamines presence Negative Normal NEGATIVE [facility] Comment on above: Result Comment: CUTO FF LEVEL: 500 NG/ML Radial Drill Press Set Up Operator drug: d-Methamphetamine Cross-reactivity has been reported with high concentrations of the following drugs: buproprion, chloroquine, chlorpromazine, ephedrine, mephentermine, fenfluramine, phentermine, phenylpropanolamine, pseudoephedrine, and propranolol. Performed By: #### D RUG3 ####[facility] [place] [address] Urine, benzodiazepines presence Negative Normal NEGATIVE [facility] Comment on above: Result Comment: CUTO FF LEVEL:200 NG/ML Radial Drill Press Set Up Operator drug: Lormetazepam Performed By: #### D RUG3 ####[facility] [place] [address] Urine, cannabinoids presence Negative Normal NEGATIVE [facility] Comment on above: Result Comment: CUTO FF LEVEL:50 NG/ML Radial Drill Press Set Up Operator dru83-wey-tfhqe9-THC-9carboxylic acid Performed By: #### D RUG3 ####[facility] [place] [address] Urine, methadone presence Negative Normal NEGATIVE [facility] Comment on above: Result Comment: CUTO FF LEVEL: 150 NG/ML Radial Drill Press Set Up Operator drug: Methadone The metabolite S-fwxzc-hsswpbfbixilom (LAAM) is not detected by this method in concentrations that would be found in the urine of patients on LAAM therapy. Performed By: #### D RUG3 ####[facility] [place] [address] Urine, opiates presence Negative Normal NEGATIVE [facility] Comment on above: Result Comment: CUTO FF LEVEL: 300 NG/ML Radial Drill Press Set Up Operator Drug: Morphine This assay shows poor reactivity with synthetic opioids such as oxycodone and fentanyl. Cross-reactivity has been reported at high doses of meperidine. Performed By: #### D RUG3 ####[facility] [place] [address] EMR ADDONon 03-07-2017 ADDON CONFIRMATION REQUEST REC'D Normal [facility] Comment on above: Performed By: #### B LCV1 ####[facility] [place] [address] ADDON CONFIRMATION REQUEST REC'D Normal [facility] Comment on above: Performed By: #### E MRAD ####NO LOCATION NEEDED GC + CHLAMYDIA BY AMPLIFIED DETECTIONon 03-07-2017 Lab Specimen Source Urine Normal [facility] Comment on above: Performed By: #### B LCV1 ####[facility] [facility] [place] [address] GROUP B STREP SCREENon 03-07 GROUP B STREP SCREEN PATIENT: Brandon LEWIS LOCATION: [address]#: [id number] : 89 AGE: SEX: F ORDERED BY: STEFANIE FISHER: VAG-RECTAL COLLECTED: 03/07/17 10:19ANTIBIOTICS AT ALEXANDRA.: RECEIVED : 03/07/17 13:28SITE: Cervix R E S U L T S GROUP B STREP SCREEN FINAL 03/09/17 08:36 NEGATIVE FOR GROUP B BETA STREP. Normal [facility] Comment on above: Performed By: #### B LCV1 ####[facility] [place] [address] HEPATITIS B SURFACE AGon HEP.B SURFACE AG NONREACTIVE Normal NONREACTIVE [facility] Comment on above: Result Comment: Laureen ents receiving more than 5 mg/day of biotin may have interference in test results. A sample should be taken no sooner than eight hours after previous dose. Contact [phone] for additional information. Performed By: #### B LCV1 ####[facility] [place] [address] HEPATITIS C ABon 03-07-2017 HEPATITIS C AB NON-REACTIVE Normal NONREACTIVE [facility] Comment on above: Result Comment: Laureen ents receiving more than 5 mg/day of biotin may have interference in test results. A sample should be taken no sooner than eight hours after previous dose. Contact [phone] for additional information. Performed By: #### B LCV1 ####[facility] [place] [address] LDHon 03-07-2017 LDH 378 U/L High 84 - 246 [facility] Comment on above: Result Comment: MILD HEMOLYSIS DETECTED. The result may be falsely elevated due tohemolysis or other interferents. Clinical correlation is recommended.Repeat testing may be considered. Performed By: #### L DH ####[facility] [place] [address] SYPHILIS IGGon 03-07-2017 SYPHILIS IGG NON REACTIVE Normal NONREACTIVE [facility] Comment on above: Result Comment: Laureen ents receiving more than 5 mg/day of biotin may have interference in test results. A sample should be taken no sooner than eight hours after previous dose. Contact [phone] for additional information. Performed By: #### B LCV1 ####[facility] [place] [address] Lab Specimen Source Normal [facility] Comment on above: Performed By: #### B LCV1 ####[facility] [place] [address] TOTAL PROTEIN, URINE SPOTon 03-07-2017 CREATININE,URINE 386.0 mg/dL Normal [facility] Comment on above: Performed By: #### T PS2 ####[facility] [place] [address] T. PROTEIN/CREAT RATIO 0.23 mg/mg Creat Normal [facility] Comment on above: Result Comment: Note : The units of measurement for Urine Total Protein to Creatinine Ratio have changed from mg/g creat to mg/mg creat effective 11/12/16. New results in mg/mg creat are 1000 fold lower than previous results in mg/g creatinine. (Ex: 200 mg/g creat = 0.20 mg/mg creat) Performed By: #### T PS2 ####[facility] [place] [address] TOTAL PROT,URINE SPOT 90 mg/dL High 0 - 12 [facility] Comment on above: Result Comment: Note : The units of measurement for urine total protein concentration have changed from mg/L to mg/dL effective 11/12/16. New results in mg/dL are now 10 fold lower than the previous results in mg/L. Performed By: #### T PS2 ####[facility] [place] [address] TYPE + SCREENon 03-07-2017 ABO TYPE A Normal [facility] Comment on above: Performed By: #### T +S ####[facility] [place] [address] RH TYPE Positive Normal [facility] Comment on above: Performed By: #### T +S ####[facility] [place] [address] ANTIBODY SCREEN Negative Normal [facility] Comment on above: Performed By: #### T +S ####[facility] [place] [address] [facility] Surgical Pathology Depar kaydennton 03-07-2017 [facility] Surgical Pathology Department Name AGUEDA LEWIS Pathologist: [...] and firm. No gross abnormalities are noted. Radial Drill Press Set Up Operator sections aresubmitted in 5 cassettes.NUBSpecimen Label SiteA 1 umbilical cord sections 2 membrane rolls 3 placental parenchyma, umbilical cord insertion site 4 normal placental parenchyma 5 placental parenchyma, phone representative section of plaquen/03/08/2017 Normal [facility] Comment on above: Performed By: #### B LCV1 ####[facility] [place] [address] URIC ACIDon 03-07-2017 Urate 5.2 mg/dL Normal 2.3 - 6.7 [facility] Comment on above: Result Comment: Linda puncture immediately after or during the administration of Metamizole may lead to falsely low results. Testing should be performed immediately prior to Metamizole dosing. Performed By: #### U PASTORA ####[facility] [place] [address] Vital Signs Date Time Vital Sign Value Performing Clinician Facility 01-01-2025 00:02-0400 Body temperature 97.5 [degF] No Primary Care Physician [facility] 01-01-2025 00:02-0400 Diastolic blood pressure 78 mm[Hg] No Primary Care Physician [facility] 01-01-2025 00:02-0400 Heart rate 81 /min No Primary Care Physician [facility] 01-01-2025 00:02-0400 Respiratory rate 17 /min No Primary Care Physician [facility] 01-01-2025 00:02-0400 SaO2% (BldA) [Mass fraction] 98 % No Primary Care Physician [facility] 01-01-2025 00:02-0400 Systolic blood pressure 115 mm[Hg] No Primary Care Physician [facility] 12-31-2024 22:35-0400 Body height 182.88 cm No Primary Care Physician [facility] 12-31-2024 22:35-0400 Body mass index (BMI) [Ratio] 34.7 kg/m2 No Primary Care Physician [facility] 12-31-2024 22:35-0400 Body weight 116.3 kg No Primary Care Physician [facility] 12-16-2024 16:54-0400 Body temperature 98.2 [degF] No Primary Care Physician [facility] 12-16-2024 16:54-0400 Diastolic blood pressure 69 mm[Hg] No Primary Care Physician [facility] 12-16-2024 16:54-0400 Heart rate 58 /min No Primary Care Physician [facility] 12-16-2024 16:54-0400 Respiratory rate 16 /min No Primary Care Physician [facility] 12-16-2024 16:54-0400 SaO2% (BldA) [Mass fraction] 99 % No Primary Care Physician [facility] 12-16-2024 16:54-0400 Systolic blood pressure 127 mm[Hg] No Primary Care Physician [facility] 12-16-2024 11:57-0400 Body height 182.88 cm No Primary Care Physician [facility] 12-16-2024 11:57-0400 Body mass index (BMI) [Ratio] 36.3 kg/m2 No Primary Care Physician [facility] 12-16-2024 11:57-0400 Body weight 121.33 kg No Primary Care Physician [facility] 12-16-2024 11:41-0400 Body mass index (BMI) [Ratio] 37.14 kg/m2 Rick Mckinnon APRN.CLOTHING CONSULTANT Work Phone: [facility] 12-16-2024 11:41-0400 Body temperature 98.29 [degF] Rick Mckinnon APRN.CLOTHING CONSULTANT Work Phone: [facility] 12-16-2024 11:41-0400 Body weight 120.8 kg Rick Mckinnon APRN.CLOTHING CONSULTANT Work Phone: [facility] 12-16-2024 11:41-0400 Diastolic blood pressure 88 mm[Hg] Rick Mckinnon APRN.CLOTHING CONSULTANT Work Phone: [facility] 12-16-2024 11:41-0400 Heart rate 85 /min Rick Mckinnon APRN.CLOTHING CONSULTANT Work Phone: [facility] 12-16-2024 11:41-0400 Respiratory rate 18 /min Rick Mckinnon APRN.CLOTHING CONSULTANT Work Phone: [facility] 12-16-2024 11:41-0400 SaO2% (BldA) [Mass fraction] 99 % Rick Mckinnon APRN.CLOTHING CONSULTANT Work Phone: [facility] 12-16-2024 11:41-0400 Systolic blood pressure 112 mm[Hg] Rick Mckinnon APRN.CLOTHING CONSULTANT Work Phone: [facility] 11-29-2024 02:54-0400 Body temperature 97.8 [degF] No Primary Care Physician [facility] 11-29-2024 02:54-0400 Diastolic blood pressure 72 mm[Hg] No Primary Care Physician [facility] 11-29-2024 02:54-0400 Heart rate 68 /min No Primary Care Physician [facility] 11-29-2024 02:54-0400 Respiratory rate 16 /min No Primary Care Physician [facility] 11-29-2024 02:54-0400 SaO2% (BldA) [Mass fraction] 99 % No Primary Care Physician [facility] 11-29-2024 02:54-0400 Systolic blood pressure 116 mm[Hg] No Primary Care Physician [facility] 11-29-2024 00:06-0400 Body height 182.88 cm No Primary Care Physician [facility] 11-29-2024 00:06-0400 Body mass index (BMI) [Ratio] 36.3 kg/m2 No Primary Care Physician [facility] 11-29-2024 00:06-0400 Body weight 121.38 kg No Primary Care Physician [facility] 08-01-2024 11:13-0400 Body mass index (BMI) [Ratio] 37.82 kg/m2 Francisco Combs MD Work Phone: [facility] 08-01-2024 11:13-0400 Body temperature 98.8 [degF] Francisco Combs MD Work Phone: [facility] 08-01-2024 11:13-0400 Body weight 123 kg Francisco Combs MD Work Phone: [facility] 08-01-2024 11:13-0400 Diastolic blood pressure 83 mm[Hg] Francisco Combs MD Work Phone: [facility] 08-01-2024 11:13-0400 Heart rate 80 /min Francisco Combs MD Work Phone: [facility] 08-01-2024 11:13-0400 Respiratory rate 20 /min Francisco Combs MD Work Phone: [facility] 08-01-2024 11:13-0400 SaO2% (BldA) [Mass fraction] 99 % Francisco Combs MD Work Phone: [facility] 08-01-2024 11:13-0400 Systolic blood pressure 127 mm[Hg] Francisco Combs MD Work Phone: [facility] 07-08-2024 14:47-0500 Body height 180.3 cm Paramjit Robertson MD Work Phone: [facility] 07-08-2024 14:47-0500 Body mass index (BMI) [Ratio] 37.38 kg/m2 Paramjit Robertson MD Work Phone: [facility] 07-08-2024 14:47-0500 Body weight 121.56 kg Paramjit Robertson MD Work Phone: [facility] 07-08-2024 14:47-0500 Diastolic blood pressure 71 mm[Hg] Paramjit Robertson MD Work Phone: [facility] 07-08-2024 14:47-0500 Heart rate 77 /min Paramjit Robertson MD Work Phone: [facility] 07-08-2024 14:47-0500 Respiratory rate 20 /min Paramjit Robertson MD Work Phone: [facility] 07-08-2024 14:47-0500 Systolic blood pressure 116 mm[Hg] Paramjit Robertson MD Work Phone: [facility] 06-03-2024 14:34-0500 Body height 178.8 cm Елена Crowdercalf CURED MEATS SUPERVISOR.CLOTHING CONSULTANT Work Phone: [facility] 06-03-2024 14:34-0500 Body mass index (BMI) [Ratio] 38.05 kg/m2 Елена [place] CURED MEATS SUPERVISOR.CLOTHING CONSULTANT Work Phone: [facility] 06-03-2024 14:34-0500 Body weight 121.66 kg Леена [place] CURED MEATS SUPERVISOR.CLOTHING CONSULTANT Work Phone: [facility] 06-03-2024 14:34-0500 Diastolic blood pressure 68 mm[Hg] Елена [place] CURED MEATS SUPERVISOR.CLOTHING CONSULTANT Work Phone: [facility] 06-03-2024 14:34-0500 Systolic blood pressure 122 mm[Hg] Елена [place] CURED MEATS SUPERVISOR.CLOTHING CONSULTANT Work Phone: [facility] 03-29-2024 21:40-0500 Diastolic blood pressure 74 mm[Hg] Vince Hope MD Work Phone: [facility] 03-29-2024 21:40-0500 Heart rate 68 /min Vince Hope MD Work Phone: [facility] 03-29-2024 21:40-0500 Respiratory rate 18 /min Vince Hope MD Work Phone: [facility] 03-29-2024 21:40-0500 SaO2% (BldA) [Mass fraction] 98 % Vince Hope MD Work Phone: [facility] 03-29-2024 21:40-0500 Systolic blood pressure 105 mm[Hg] Vince Hope MD Work Phone: [facility] 03-29-2024 18:45-0500 Body temperature 97 [degF] Vince Hope MD Work Phone: [facility] 03-29-2024 18:44-0500 Body height 180.3 cm Vince Hope MD Work Phone: [facility] 03-29-2024 18:44-0500 Body mass index (BMI) [Ratio] 40.17 kg/m2 Vince Hope MD Work Phone: [facility] 03-29-2024 18:44-0500 Body weight 130.64 kg Vince Hope MD Work Phone: [facility] 12-29-2023 10:11-0400 Body height 180.3 cm Mary Jasso MD Work Phone: [facility] 12-29-2023 10:11-0400 Body mass index (BMI) [Ratio] 37.35 kg/m2 Mary Jasso MD Work Phone: [facility] 12-29-2023 10:11-0400 Body temperature 96.91 [degF] Mary Jasso MD Work Phone: [facility] 12-29-2023 10:11-0400 Body weight 121.47 kg Mary Jasso MD Work Phone: [facility] 12-29-2023 10:11-0400 Diastolic blood pressure 66 mm[Hg] Mary Jasso MD Work Phone: [facility] 12-29-2023 10:11-0400 Heart rate 117 /min Mary Jasso MD Work Phone: [facility] 12-29-2023 10:11-0400 SaO2% (BldA) [Mass fraction] 98 % Mary Jasso MD Work Phone: [facility] 12-29-2023 10:11-0400 Systolic blood pressure 108 mm[Hg] Mary Jasso MD Work Phone: [facility] 08-23-2023 21:38-0400 Body height 180.[address] JOAQUÍN CARMICHAEL DO [facility] 08-23-2023 21:38-0400 Body temperature 98.96 [degF] DR JOAQUÍN CARMICHAEL DO [facility] 08-23-2023 21:38-0400 Body weight 127.[address] JOAQUÍN CARMICHAEL DO [facility] 08-23-2023 21:38-0400 Diastolic Blood Pressure Non-Invasive 85 mm[Hg] DR JOAQUÍN CARMICHAEL DO [facility] 08-23-2023 21:38-0400 Heart rate 88 /min DR JOAQUÍN CARMICHAEL DO [facility] 08-23-2023 21:38-0400 Respiratory rate 18 /min DR JOAQUÍN CARMICHAEL DO [facility] 08-23-2023 21:38-0400 Systolic Blood Pressure Non-Invasive 124 mm[Hg] DR JOAQUÍN CARMICHAEL DO [facility] 08-14-2023 08:26-0400 Body height 177.8 cm Orestes Heath MD Work Phone: [facility] 08-14-2023 [id number] Body weight 126.55 kg Orestes Heath MD Work Phone: [facility] 08-14-2023 08:26-0400 Diastolic blood pressure 77 mm[Hg] Orestes Heath MD Work Phone: [facility] 08-14-2023 08:26-0400 Heart rate 103 /min Orestes Heath MD Work Phone: [facility] 08-14-2023 08:26-0400 Respiratory rate 18 /min Orestes Heath MD Work Phone: [facility] 08-14-2023 08:26-0400 SaO2% (BldA) [Mass fraction] 98 % Orestes Heath MD Work Phone: [facility] 08-14-2023 08:26-0400 Systolic blood pressure 111 mm[Hg] Orestes Heath MD Work Phone: [facility] 03-27-2023 15:51-0500 Body height 177.4 cm [place] Khalid DO Work Phone: [facility] 03-27-2023 15:51-0500 Body mass index (BMI) [Ratio] 41.52 kg/m2 Quintin Khalid DO Work Phone: [facility] 03-27-2023 15:51-0500 Body temperature 97.9 [degF] [place] Khalid DO Work Phone: [employer] 03-27-2023 15:51-0500 Body weight 130.68 kg [place] Khalid DO Work Phone: [employer] 03-27-2023 15:51-0500 Diastolic blood pressure 82 mm[Hg] [place] Khalid DO Work Phone: [employer] 03-27-2023 15:51-0500 Heart rate 87 /min [place] Khalid DO Work Phone: [employer] 03-27-2023 15:51-0500 Respiratory rate 20 /min Quintin Khalid DO Work Phone: [employer] 03-27-2023 15:51-0500 Systolic blood pressure 118 mm[Hg] [place] Khalid DO Work Phone: [employer] 11-01-2020 23:25-0400 Body temperature 98.01 [degF] [employer] Work Phone: 11-01-2020 23:25-0400 Diastolic blood pressure 71 mm[Hg] [facility] Work Phone: 11-01-2020 23:25-0400 Heart rate 69 /min [employer] Work Phone: 11-01-2020 23:25-0400 Respiratory rate 16 /min [employer] Work Phone: 11-01-2020 23:25-0400 SaO2% (BldA) [Mass fraction] 98 % [facility] Work Phone: 11-01-2020 23:25-0400 Systolic blood pressure 110 mm[Hg] [employer] Work Phone: 11-01-2020 19:37-0400 Body mass index (BMI) [Ratio] 29.57 kg/m2 [facility] Work Phone: 11-01-2020 19:37-0400 Body weight 96.16 kg [employer] Work Phone: 11-01-2020 19:36-0400 Body height 180.3 cm [employer] Work Phone: Encounters Encounter Date Encounter Type Care Provider Facility Start: 01-08-2025 ambulatory No Primary Car e Physician Facility:[facility] Start: 12-31-2024 End: 01-01-2025 Emergency department patient visit No Primary Care Physician -Emergency Department Work Phone: Start: 12-16-2024 End: 12-16-2024 Emergency department patient visit No Primary Care Physician -Emergency Department Work Phone: Start: 12-16-2024 End: 12-16-2024 Office outpatient visit 15 minutes Rick Mckinnon CURED MEATS SUPERVISOR.CLOTHING CONSULTANT Work Phone: [facility] Comment on above: Right upper quadrant abdominal pain (Primary Dx) Start: 12-16-2024 End: 12-16-2024 [facility] Start: 12-06-2024 ambulatory No Primary Car e Physician Facility:[facility] Start: 11-29-2024 End: 11-29-2024 Emergency department patient visit No Primary Care Physician -Emergency Department Work Phone: Start: 10-16-2024 End: 10-16-2024 Telephone encounter Paramjit Robertson MD Work Phone: [facility] GENERAL SUR[facility]ERY DEPARTMENT Comment on above: Surgery Cancelled (R e: Lap Malissa 10/17/2024) Start: 10-10-2024 Preprocedural examination done Paramjit Robertson MD Work Phone: [facility] Work Phone: Start: 09-26-2024 End: 09-30-2024 Orders Only Paramjit Robertson MD Work Phone: [facility] GENER[facility] SUR[facility] Comment on above: Calculus of gallblad samuel without cholecystitis without obstruction (Primary Dx) Cardiac Clearance Start: 08-21-2024 End: 08-21-2024 Telephone encounter Orestes Heath MD Work Phone: [facility] Cardiology [place] Start: 08-01-2024 End: 08-01-2024 Subsequent hospital visit by physician Xr [facility] Work Phone: Radiology Comment on above: Acute pain of left s houlder [M25.512] Start: 08-01-2024 End: 08-01-2024 ambulatory FRANCISCO COMBS Facility:[facility] Start: 08-01-2024 End: 08-01-2024 Office outpatient visit 15 minutes Francisco Combs MD Work Phone: [facility] Comment on above: Acute pain of left s adenike (Primary Dx) Start: 07-08-2024 End: 07-08-2024 Patient encounter procedure Paramjit Robertson MD Work Phone: [facility] GENERAL SURGERY DEPARTMENT Comment on above: Calculus of gallblad samuel without cholecystitis without obstruction (Primary Dx); 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; Tobacco use Start: 07-08-2024 End: 07-08-2024 ambulatory PARAMJIT ROBERTSON Facility:[facility] Start: 06-14-2024 End: 06-14-2024 ambulatory System Administration Advisor [employer] Work Phone: OB/Gynecology Start: 06-14-2024 End: 06-14-2024 Patient encounter procedure Us Tech 1 [employer] OB/Gynecology Start: 06-12-2024 End: 06-12-2024 Orders Only Tayla Boucher PA-C Work Phone: [facility] Orthopedics [facility] Comment on above: Pain in both knees, unspecified chronicity (Primary Dx) Start: 06-05-2024 End: 06-06-2024 ambulatory Елена Kim APRN.CNP Work Phone: OB/Gynecology Comment on above: Test Result Question Start: 06-03-2024 End: 06-03-2024 Patient encounter procedure Елена Kim APRN.CNP Work Phone: OB/Gynecology Comment on above: Encounter for gyneco logical examination (general) (routine) without abnormal findings (Primary Dx); Screening for cervical cancer; Encounter for screening for human papillomavirus (HPV); Irregular menstrual cycle Start: 06-03-2024 End: 06-03-2024 Patient encounter status Елена Judy CUR[employer] SUPERVISOR.CLOTHING CONSULTANT Work Phone: [facility] Start: 06-03-2024 End: 06-03-2024 ambulatory ЕЛЕНА KIM Facility:[facility] Start: 04-25-2024 End: 04-25-2024 Telephone encounter Orestes Heath MD Work Phone: [facility] Cardiology Comment on above: Results (Echo) Start: 04-23-2024 ambulatory ORESTES HEATH Facilit y:[facility] Start: 04-23-2024 End: 04-23-2024 Subsequent hospital visit by physician Echo Lab [facility] CARDIAC TESTING Comment on above: Family history of hy pertrophic cardiomyopathy [Z82.49] Start: 04-03-2024 End: 04-03-2024 Emergency department patient visit BUDDYLISA HOPKINS Facility:[facility] Start: 04-02-2024 End: 04-02-2024 ambulatory [facility] Start: 03-29-2024 End: 03-29-2024 Emergency department patient visit Vince Hope MD Work Phone: [facility] ED Comment on above: Gallstones (Primary Dx); Biliary colic; Trichomonas infection Start: 03-29-2024 End: 04-01-2024 Telephone encounter Rubi Kang RN [facility] Clinical Communication Comment on above: Other (ED follow up appointment) Start: 2024 End: 2024 ambulatory Nurse Card Admin [facility] Work Phone: Cardiology Comment on above: Stress Test Instruct ions for 02/26/24 Start: 2024 End: 2024 E-mail encounter from caregiver Nurse Card Admin [facility] Work Phone: Cardiology Start: 02-14-2024 End: 02-14-2024 Emergency department patient visit QUINTIN MONTIEL Facility:[facility] Start: 01-16-2024 End: 03-27-2024 Telephone encounter Mary Jasso MD Work Phone: General Surgery Comment on above: Patient Update Start: 12-29-2023 End: 12-29-2023 ambulatory MARY JASSO Facility:[facility] Start: 12-29-2023 End: 12-29-2023 Patient encounter procedure Mary Jasso MD Work Phone: General Surgery Comment on above: Calculus of gallblad samuel without cholecystitis without obstruction (Primary Dx); RUQ abdominal pain; Chest pain, unspecified type Start: 08-23-2023 End: 08-24-2023 Emergency department patient visit DR JOAQUÍN CARMICHAEL DO Facility:[facility] Start: 08-23-2023 End: 08-23-2023 Emergency department patient visit DR JOAQUÍN CARMICHAEL DO [facility] Start: 08-14-2023 End: 08-14-2023 Patient encounter procedure Orestes Heath MD Work Phone: [facility] Cardiology [place] Comment on above: Class 3 severe obesi ty due to excess calories with body mass index (BMI) of 40.0 to 44.9 in adult, unspecified whether serious comorbidity present (HCC) (Primary Dx); Family history of hypertrophic cardiomyopathy; Preoperative clearance; Gall stones; Chest pain, unspecified type Start: 08-14-2023 End: 08-14-2023 Preoperative state Orestes Heath MD Work Phone: [facility] Work Phone: Start: 07-25-2023 Telephone encounter Zulema olivo DO Work Phone: [facility] Comment on above: Appointment Request Start: 05-24-2023 Refill Zulema Deleon Work Phone: [facility] Comment on above: Nausea and vomiting, unspecified vomiting type Start: 04-14-2023 End: 04-14-2023 Patient encounter procedure Vannessa Ellis MD Work Phone: Reproductive Endocrinology [facility] Comment on above: NO SHOW (Primary Dx) Start: 03-27-2023 End: 03-27-2023 Office outpatient new 30 minutes Quintin Montiel DO Work Phone: [facility] Comment on above: Epigastric pain (Sona mayra Dx); Nausea and vomiting, unspecified vomiting type; Missed menses Start: 12-05-2022 End: 12-05-2022 Subsequent hospital visit by physician [facility] Non-Invasive Cardiology Comment on above: Arrived Start: 02-24-2022 ambulatory Nerissa Haskins ALTA [facility] [place] Comment on above: Population Health Na vigation Outreach (HCC) Start: 11-01-2020 End: 11-01-2020 Emergency department patient visit [facility] Emergency Dept Comment on above: Numbness (Primary Dx ); Cervical radiculopathy Start: 11-13-2019 End: 11-13-2019 Emergency department patient visit MICHELE Keren REYNOLDS [facility] Start: 11-05-2019 End: 11-05-2019 Emergency department patient visit MARCY SCHMITZ GUARDADO [facility] Start: 05-13-2017 End: 05-13-2017 Evaluation and management of inpatient Family Physician Unavailable Facility:[facility] Start: 05-12-2017 Ambulatory Facility:[id number] Start: 04-22-2017 End: 04-22-2017 Emergency department patient visit Agustin Villa Facility:[facility] Start: 04-22-2017 Ambulatory Facility:[id number] Start: 03-07-2017 End: 03-07-2017 Ambulatory Sherif Azevedo Facility:[facility] Procedures Date Procedure Procedure Detail Performing Clinician Start: 12-31-2024 Estimated creatinine clearance No Primary Care Physician Start: 12-31-2024 US scan of gallbladder No Primary Care Physician Start: 12-16-2024 Estimated creatinine clearance No Primary [...] nonobstetr ic real-time image complete Елена Kim APRN.CLOTHING CONSULTANT Work Phone: Start: 06-03-2024 Microscopic observat ion [...] Start: 03-27-2023 Comprehensive metabo lic panel Quintin Khalid DO Work Phone: Start: 03-27-2023 Urine test visual color cmprsn meths [place] Khalid DO Work Phone: Start: 03-27-2023 Adult depression scr eening assessment Quintin Khalid DO Work Phone: Start: 12-05-2022 Ecg routine ecg w/le ast 12 lds i&r only Victor M Foster MD Work Phone: Start: 11-01-2020 Radex spine cervical 2 or 3 views Vianey Ann PA-C Work Phone: Start: 11-13-2019 Urinalysis MARCY Cárdenas Comment on above: Result Comment: URIN ALYSIS Performed By: #### 2 [id number] #### [facility],[address] [place] [address] Start: 03-07-2017 Delivery of Products of Conception, External Approach Sherif Azevedo Plan of Treatment Date Care Activity Detail Author Start: 2069 RSV Immunization for Adults (1 - 1-dose 75+ series) RSV Immunization for Adults (1 - 1-dose 75+ series) [facility] Start: 2054 RSV Immunization aged 60 or older (1 - 1-dose 60+ series) RSV Immunization aged 60 or older (1 - 1-dose 60+ series) [facility] Start: 02-21-2044 Zoster Vaccines (1 of 2) Zoster Vaccines (1 of 2) [facility] Start: 06-03-2029 Screening for malignant neoplasm of cervix Cervical Cancer Screening [facility] Start: 06-03-2027 Screening for malignant neoplasm of cervix [facility] Start: 06-03-2025 End: 06-03-2025 Patient encounter procedure 06/03/2025 3:00 PM EST Office Visit OB/Gynecology [address] [place] [address] Елена Kim APRN.CLOTHING CONSULTANT [address] [place] [address] Annual OB/Gynecology Comment on above: Annual Start: 01-20-2025 Influenza vaccination [facility] Start: 12-31-2024 [facility] Start: 11-29-2024 [facility] Start: 10-30-2024 End: 10-30-2024 Patient encounter procedure 10/30/2024 11:15 AM EDT Office Visit [facility] GENERAL SURGERY DEPARTMENT 1 [facility] [address], [facility] [address] [place] [address] Paramjit Robertson MD [address] [place] [phone] POST-OP LAP MALISSA [facility] SURGERY DEPARTMENT Comment on above: POST-OP LAP MALISSA Start: 10-17-2024 End: 10-17-2024 Admission to same day surgery center 10/17/2024 11:15 AM EDT - 10/17/2024 1:35 PM EDT Surgery [place] SUR[place] [place] [address] [place] [address] Paramjit Robertson MD [address] [facility] [address] [place] [phone] LAPAROSCOPIC CHOLECYSTECTOMY [place] [facility] [place] Comment on above: LAPAROSCOPIC CHOLECYSTECTOMY Start: 10-17-2024 End: 10-17-2024 Laparoscopy surg cholecystectomy LAPAROSCOPIC CHOLECYSTECTOMY Calculus of gallbladder without cholecystitis without obstruction 10/17/2024 11:15 AM EDT [place] OR Start: 10-17-2024 Subsequent hospital visit by physician 10/17/2024 11:15 AM EDT Hospital Encounter [place] [facility] [place] [address] [facility] [place] [address] Paramjit Robertson MD [address] [facility] [address] [place] [phone] Calculus of gallbladder without cholecystitis without obstruction [K80.20] [place] [facility] Comment on above: Calculus of gallbladder without cholecys titis without obstruction [K80.20] Start: 10-10-2024 End: 10-10-2024 ambulatory 10/10/2024 3:00 PM EDT PAT Pre Surgical Testing [address] [facility] [place] [id number] LAPAROSCOPIC CHOLECYSTECTOMY Pre Surgical Testing Comment on above: LAPAROSCOPIC CHOLECYSTECTOMY Start: 09-26-2024 End: 12-26-2024 Alanine aminotransferase [Enzymatic activity/volume] in Serum or Plasma ALANINE AMINOTRANSFERASE / SGPT Lab Routine Calculus of gallbladder without cholecystitis without obstruction Expected: 09/26/2024, Expires: 12/26/2024 [facility] Comment on above: Expected: 09/26/2024, Expires: Start: 09-26-2024 End: 12-26-2024 Alkaline phosphatase [Enzymatic activity/volume] in Serum or Plasma ALKALINE PHOSPHATASE Lab Routine Calculus of gallbladder without cholecystitis without obstruction Expected: 09/26/2024, Expires: 12/26/2024 [facility] Comment on above: Expected: 09/26/2024, Expires: Start: 09-26-2024 End: 12-26-2024 Aspartate aminotransferase [Enzymatic activity/volume] in Serum or Plasma ASPARTATE AMINOTRANSFERASE/SGOT Lab Routine Calculus of gallbladder without cholecystitis without obstruction Expected: 09/26/2024, Expires: 12/26/2024 [facility] Comment on above: Expected: 09/26/2024, Expires: Start: 09-26-2024 End: 12-26-2024 Bilirubin.total [Mass/volume] in Serum or Plasma BILIRUBIN TOTAL BLD Lab Routine Calculus of gallbladder without cholecystitis without obstruction Expected: 09/26/2024, Expires: 12/26/2024 [facility] Comment on above: Expected: 09/26/2024, Expires: Start: 09-26-2024 End: 12-26-2024 CBC panel - Blood by Automated count COMPLETE BLOOD COUNT Lab Routine Calculus of gallbladder without cholecystitis without obstruction Expected: 09/26/2024, Expires: 12/26/2024 [facility] Comment on above: Expected: 09/26/2024, Expires: Start: 09-09-2024 End: 09-09-2024 Patient encounter procedure 09/09/2024 11:30 AM EDT Office Visit [facility] [address] [place] [address] Thor Huang APRN.CLOTHING CONSULTANT [address] [place] [address] cardiac clearance for cholecystectomy on 10/17/24 [facility] Comment on above: cardiac clearance for cholecystectomy on 10/17/24 Start: 06-24-2024 End: 06-24-2024 Patient encounter procedure 06/24/2024 12:45 PM EST Office Visit OB/Gynecology [address] [place] [address] Елена Kim, [employer]ATS SUPERVISOR.CLOTHING CONSULTANT [address] [place] [address] discuss ultrasound results OB/Gynecology Comment on above: discuss ultrasound results Start: 06-14-2024 End: 06-14-2024 ambulatory 06/14/2024 11:00 AM EST Procedure OB/Gynecology [address] [place] [address] Remote, System Administration Advisor [facility] [address] [place] [address] Irregular menstrual cycle [N92.6] OB/Gynecology Comment on above: Irregular menstrual cycle [N92.6] Start: 06-12-2024 End: 06-12-2025 XR Knee - left 1 or 2 Views XR knee 1 or 2 views left Imaging Routine Pain in both knees, unspecified chronicity Expected: 06/12/2024, Expires: 06/12/2025 [facility] Comment on above: Expected: 06/12/2024, Expires: Start: 06-12-2024 End: 06-12-2025 XR Knee - right 1 or 2 Views XR knee 1 or 2 views right Imaging Routine Pain in both knees, unspecified chronicity Expected: 06/12/2024, Expires: 06/12/2025 [facility] Comment on above: Expected: 06/12/2024, Expires: Start: 06-12-2024 End: 06-12-2025 XR knees anteroposterior standing bilateral XR knees anteroposterior standing bilateral Imaging Routine Pain in both knees, unspecified chronicity Expected: 06/12/2024 (Approximate), Expires: 06/12/2025 [facility] Work Phone: Comment on above: Expected: 06/12/2024 (Approximate), Expi res: 06/12/2025 Start: 06-10-2024 End: 06-10-2024 Patient encounter procedure 06/10/2024 2:45 PM EST Office Visit General Surgery [address] [place] [id number] Mary Jasso MD [address] [place] [phone] Gallbladder pain that has been persistent General Surgery Comment on above: Gallbladder pain that has been persisten t Start: 06-03-2024 End: 09-02-2024 17-Hydroxyprogesterone [Mass/volume] in Serum or Plasma [facility] Comment on above: Expected: 06/03/2024, Expires: Start: 06-03-2024 End: 09-02-2024 DHEA-S BLD [facility] Comment on above: Expected: 06/03/2024, Expires: Start: 06-03-2024 End: 09-02-2024 Estradiol (E2) [Mass/volume] in Serum or Plasma [facility] Comment on above: Expected: 06/03/2024, Expires: Start: 06-03-2024 End: 09-02-2024 Follitropin [Units/volume] in Serum or Plasma [facility] Comment on above: Expected: 06/03/2024, Expires: Start: 06-03-2024 End: 09-02-2024 Hemoglobin A1c in Blood [facility] Comment on above: Expected: 06/03/2024, Expires: Start: 06-03-2024 End: 09-02-2024 Lutropin [Units/volume] in Serum or Plasma [facility] Comment on above: Expected: 06/03/2024, Expires: Start: 06-03-2024 End: 09-02-2024 Prolactin [Mass/volume] in Serum or Plasma [facility] Comment on above: Expected: 06/03/2024, Expires: Start: 06-03-2024 End: 09-02-2024 TESTOSTERONE, FREE AND TOTAL, BY EQUILIBRIUM ULTRAFILTRATION MASS SPECTROMETRY [facility] Comment on above: Expected: 06/03/2024, Expires: Start: 06-03-2024 End: 09-02-2024 Thyrotropin [Units/volume] in Serum or Plasma [facility] Work Phone: Comment on above: Expected: 06/03/2024, Expires: Start: 06-03-2024 End: 06-03-2025 US Pelvis PELVIC US [facility] Anc Imaging Routine Irregular menstrual cycle Expected: 06/03/2024, Expires: 06/03/2025 [facility] Comment on above: Expected: 06/03/2024, Expires: Start: 04-25-2024 End: 04-25-2024 Patient encounter procedure 04/25/2024 9:40 AM EST Office Visit OB/Gynecology [address] [place] [address] Emily Ware MD [address] [place] [address] Amenorrhea >20 days OB/Gynecology Comment on above: Amenorrhea >20 days Start: 04-11-2024 End: 04-11-2024 Patient encounter procedure 04/11/2024 8:45 AM EST Office Visit [facility] [place] [address] [facility] [place] [phone] Luis F Dick DO [address] [facility] [address] [place] [address] [facility] [place] Start: 03-27-2024 Depression Screening Depression Screening [facility] Start: 02-26-2024 End: 02-26-2024 Patient encounter procedure 02/26/2024 11:20 AM EDT Office Visit Cardiology [address] [place] [address] Wstr, Nurse Card Admin [facility] [address] [place] [address] Family history of hypertrophic cardiomyopathy [Z82.49]; Chest pain, unspecified type [R07.9] Cardiology Comment on above: Family history of hypertrophic cardiomyo juan r [Z82.49]; Chest pain, unspecified type [R07.9] Start: 02-21-2024 Screening for malignant neoplasm of cervix [facility] Start: 01-21-2024 Covid-19 Vaccine ( season) Covid-19 Vaccine ( season) [facility] Start: 01-21-2024 Influenza vaccination Influenza Vaccine (#1) [facility] Start: 01-12-2024 End: 01-12-2024 Patient encounter procedure 01/12/2024 1:50 PM EDT Office Visit Cardiology [address] [place] [address] Family history of hypertrophic cardiomyopathy [Z82.49]; Chest pain, unspecified type [R07.9] Cardiology Comment on above: Family history of hypertrophic cardiomyo juan r [Z82.49]; Chest pain, unspecified type [R07.9] Start: 08-11-2023 End: 08-11-2023 Patient encounter procedure 08/11/2023 3:00 PM EDT Office Visit [facility] [address] [place] [phone] Vesna Wright DO [address] [place] [address] [facility] Start: 05-22-2023 Depression Assessment Depression Assessment [facility] Start: 04-03-2023 End: 04-03-2023 Patient encounter procedure 04/03/2023 1:10 PM EST Office Visit [facility] [address] [place] [phone] Zulema Sorto DO [address] [place], [place] [id number] [facility] Start: 01-20-2023 Covid-19 Vaccine ( season) Covid-19 Vaccine ( season) [facility] Start: 01-20-2023 Influenza vaccination Influenza Vaccine (#1) [facility] Start: 05-22-2022 Depression Assessment Depression Assessment [facility] Start: 01-20-2022 Influenza vaccination INFLUENZA (#1) [facility] Start: 11-12-2021 PAP TESTING PAP TESTING [facility] Start: 11-12-2021 Screening for malignant neoplasm of cervix [facility] Start: 05-22-2021 DEPRESSION ASSESSMENT DEPRESSION ASSESSMENT [facility] Start: 01-20-2021 Influenza vaccination Flu vaccine (Season Ended) [facility] Work Phone: Start: 12-07-2020 COVID-19 VACCINE (3 - Booster for Moderna series) COVID-19 VACCINE (3 - Booster for Moderna series) [facility] Start: 12-07-2020 COVID-19 Vaccine (3 - Moderna series) COVID-19 Vaccine (3 - Moderna series) [facility] Start: 01-27-2017 DTaP/Tdap/Td Vaccines (5 - Td or Tdap) DTaP/Tdap/Td Vaccines (5 - Td or Tdap) [facility] Start: 01-27-2017 DTaP/Tdap/Td Vaccines (6 - Td or Tdap) DTaP/Tdap/Td Vaccines (6 - Td or Tdap) [facility] Start: 01-27-2017 Urine microalbumin profile [facility] Start: 2015 Screening for malignant neoplasm of cervix Pap Smear [facility] Start: 02-21-2012 Anxiety Screening Anxiety Screening [facility] Start: 02-21-2012 Depression Screening Depression Screening [facility] Start: 02-21-2012 HEPATITIS C SCREENING HEPATITIS C SCREENING [facility] Start: 02-21-2012 Hepatitis C screening Hepatitis C Screening [facility] Start: 2006 COVID-19 Vaccine (1) COVID-19 Vaccine (1) [facility] Work Phone: Start: 2006 Depression Screening Depression Screening [facility] Start: 02-21-2000 Pneumococcal Vaccine: Pediatrics (0 to 5 Years) and At-Risk Patients (6 to 64 Years) (1 - PCV) Pneumococcal Vaccine: Pediatrics (0 to 5 Years) and At-Risk Patients (6 to 64 Years) (1 - PCV) [facility] Start: 1998 Varicella vaccination Varicella Vaccines (2 of 2 - 2-dose childhood series) [facility] Start: 07-10-1995 Varicella vaccination Varicella Vaccines (1 of 2 - 2-dose childhood series) [facility] Start: 1994 HIV screening HIV Screening [facility] Start: 1994 Lipid panel Lipid Panel [facility] Choriogonadotropin.b eta subunit ( test) [Presence] in Serum or Plasma [facility] End: 09-30-2025 ECG COMPLETE ECG COMPLETE ECG Routine Family history of hypertrophic cardiomyopathy 1 Occurrences starting 09/30/2024 until 09/30/2025 [facility] Work Phone: Comment on above: 1 Occurrences starting 09/30/2024 until 09/30/2025 End: 08-13-2024 Echocardiography ECHO Cardiology Routine Family history of hypertrophic cardiomyopathy Chest pain, unspecified type 1 Occurrences starting 08/14/2023 until 08/13/2024 [facility] Work Phone: Comment on above: 1 Occurrences starting 08/14/2023 until 08/13/2024 H&P for surgery H&P FOR SURGERY Procedures Routine Calculus of gallbladder without cholecystitis without obstruction Ordered: 09/26/2024 [facility] Work Phone: Comment on above: Ordered: 09/26/2024 End: 03-29-2024 Neisseria gonorrhoeae DNA [Presence] in Cervical mucus by ELHAM with probe detection [facility] Work Phone: Comment on above: Once (Lab) for 1 Occurrences starting until 03/29/2024 PAP TEST PAP TEST Lab Miam russell Encounter for gynecological examination (general) (routine) without abnormal findings Screening for cervical cancer Encounter for screening for human papillomavirus (HPV) 06/03/2024 3:14 PM EST [facility] Patient Education [facility] Work Phone: End: 08-13-2024 STRESS ECHO TREADMILL STRESS ECHO TREADMILL Cardiology Routine Family history of hypertrophic cardiomyopathy Chest pain, unspecified type 1 Occurrences starting 08/14/2023 until 08/13/2024 [facility] Work Phone: Comment on above: 1 Occurrences starting 08/14/2023 until 08/13/2024 [facility] Immunizations Immunization Date Immunization Notes Care Provider Alexi garcia 03-07-2018 influenza virus vaccine, unspecified formulation Vannessa Ellis MD Work Phone: [facility] 01-27-2007 meningococcal polysaccharide (groups A, C, Y and W-135) diphtheria toxoid conjugate vaccine (MCV4P) Quintin Montiel DO Work Phone: [facility] 01-27-2007 Meningococcal, MCV4, unspecified conjugate formulation(groups A, C, Y and W-135) Nerissa Haskins MA [facility] Work Phone: 01-27-2007 tetanus toxoid, redu mónica diphtheria toxoid, and acellular pertussis vaccine, adsorbed Nerissa Haskins MA [facility] Work Phone: 02-16-2000 poliovirus vaccine, inactivated [place] Khalid DO Work Phone: [facility] 05-22-1997 Chicken Pox (disease) Nerissa mauricio [facility] Work Phone: 05-22-1997 varicella virus vaccine [place] Khalid DO Work Phone: [facility] 06-12-1995 DTP-Haemophilus influenzae type b conjugate vaccine [place] Kamaraal[place] DO Work Phone: [facility] 06-12-1995 hepatitis B vaccine, pediatric or pediatric/adolescent dosage Nerissa Haskins [facility] Work Phone: 06-12-1995 measles, mumps and rubella virus vaccine Nerissa Haskins [facility] Work Phone: 06-12-1995 Tetramune Nerissa Haskins [facility] Work Phone: 1994 DTP-Haemophilus influenzae type b conjugate vaccine Nerissa Haskins [facility] Work Phone: 1994 trivalent poliovirus vaccine, live, oral Nerissa Haskins [facility] Work Phone: 1994 DTP-Haemophilus influenzae type b conjugate vaccine Nerissa Haskins [facility] Work Phone: 1994 hepatitis B vaccine, pediatric or pediatric/adolescent dosage Nerissa Haskins [facility] Work Phone: 1994 trivalent poliovirus vaccine, live, oral Nerissa Haskins [facility] Work Phone: 1994 DTP-Haemophilus influenzae type b conjugate vaccine Nerissa Haskins [facility] Work Phone: 1994 hepatitis B vaccine, pediatric or pediatric/adolescent dosage Nerissa Haskins [facility] Work Phone: 1994 trivalent poliovirus vaccine, live, oral Nerissa Haskins [facility] Work Phone: Payers Date Payer Category Payer Self-pay 2022 Medicaid HMO [employer] [facility] [id number] 2022 Unknown [id number] 2020 Unknown [facility] [id number] 2020-Present [phone] [address] [address] [place] [address] [facility] [id number] 2017 Medicaid [id number] 2016 Unknown [id number] 1994 Unknown [id number] 1994 Unknown [id number] 1994 Unknown [id number] Unknown [id number] Unknown [id number] Unknown [id number] Unknown [id number] Unknown [id number] Unknown [id number] Social History Date Type Detail Facility Start: 11-01-2020 End: 12-31-2024 Tobacco smoking status NHIS Current every day smoker [facility] Work Phone: History of tobacco use [facility] Start: 11-01-2020 End: 12-29-2023 Tobacco use and exposure Never used [facility] Start: 11-01-2020 End: 03-27-2023 Alcohol intake Lifetime non-drinker (finding) [facility] Work Phone: Start: 11-01-2020 History SDOH Alcohol Frequency 1 [facility] Work Phone: Start: 1995 Sex Assigned At Not on file [facility] [employer] Work Phone: Start: 11-25-2022 End: 12-05-2022 Exposure to SARS-CoV-2 (event) Not sure [facility] Start: 10-20-2020 End: 12-29-2023 Tobacco smoking status NHIS Never smoked tobacco [facility] Work Phone: Start: 01-19-2021 End: 10-09-2024 Alcohol intake Current non-drinker of alcohol (finding) [facility] Start: 10-20-2020 End: 12-29-2023 Tobacco Comment vapes without nicotine [facility] Start: 1995 Sex Assigned At Female C [facility] Start: 12-05-2022 End: 09-09-2024 History of Social function [facility] Start: 12-05-2022 End: 09-09-2024 Tobacco use panel [facility] Start: 03-27-[address] [facility] Ex-smoker [facility] History of tobacco use Current smoker [facility] Has the electric, [employer], [place], or water company threatened to shut off services in your home in past 12Mo No [facility] Are you now , , , , never or living with a partner? [facility] How often to you hav e a drink containing alcohol? Never [facility] How many standard dr inks containing alcohol do you have on a typical day? Patient does not drink [facility] (I/We) worried whekim er (my/our) food would run out before (I/we) got money to buy more. Never true [facility] Start: 05-30-2023 Sexual orientation Bisexual (finding ) [facility] Tobacco Nicotine Use: Va ping Product in Last 90 Days. Type: Electronic Cigarettes (Vaping). [facility] Tobacco smoking status No Smokin g Status Entered [facility] Start: 12-20-2021 Sex Female (finding) [facility] Goals Date Patient Goal Desired Activity /State Personal health goal Functional Status Date Assessment Result Facility 08-23-2023 Functional Status Independent Melina Tigre woo [facility] 09-02-2014 Are you deaf, or do you have serious difficulty hearing No 09/02/2014 2:30 PM EDSis Long LPN No [facility] 09-02-2014 Are you blind, or do you have serious difficulty seeing, even when wearing glasses No 09/02/2014 2:30 PM Sis Caro LPN No [facility] 09-02-2014 Do you have serious difficulty walking or climbing stairs No 09/02/2014 2:30 PM Sis Caro LPN No [facility] 09-02-2014 Do you have difficul ty dressing or bathing No 09/02/2014 2:30 PM Sis Caro LPN No [facility] 09-02-2014 Because of a physica l, mental, or emotional condition, do you have difficulty doing errands alone such as visiting a physician's office or shopping No 09/02/2014 2:30 PM Sis Caro LPN No [facility] Mental Status Date Assessment Result Facility 08-23-2023 Mental Status Oriented x 4 [facility] 09-02-2014 Because of a physica l, mental, or emotional condition, do you have serious difficulty concentrating, remembering, or making decisions No 09/02/2014 2:30 PM EDT Sis Connors LPN No [facility] Clinical Notes 02-05-2015 to 12-31-2024 Note Date & Type Note Facility 12-31-2024 Discharge summary [facility] 12-31-2024 Radiology Diagnostic study note [facility] Imaging Services [address] [place] [address] Gallbladder MR#: [id number] Acct: [id number] Name: AGUEDA LEWIS R Rep #: [id number] 1 : 1995 F 29 From: Kerry Xie MD PCP: Care Physician,No Primary Status: REG ER Study:Gallbladder Date of Exam: 12/31/24 Exam# [id number] Ordering Dr: Julius Isaac MD PROCEDURE: GALLBLADDER 12/31/2024 REASON FOR EXAM: PAIN COMPARISON: 12/16/2024 FINDINGS: Liver is normal in size and echogenicity. CBD measures 5 mm. There are gallstones and localized pain. No wall thickening or pericholecystic fluid.. Unremarkable visible pancreas. Right kidney measures 10 cm in length without hydronephrosis. US/Gallbladder IMPRESSION: Gallstones and localized pain. If there is clinical concern for cholecystitis, recommend HIDA scanning. Reading Location: [place] [address] CC: Dr. Jay Isaac MD; No Primary Care Physician ~ Java Engineer: Signed [facility] 12-31-2024 Discharge summary Note Date/Time December 31, 2024 11:53pm [facility] Medical Records Department [address] [place] [address] Emergency Department Summary 12/31/24 MR#: [id number] Acct: [id number] Name: AGUEDA LEWIS R Rep #:[id number] : 1995 29 From: Jay Isaac MD PCP: Care Physician,No Primary Status :REG ER Location: ED HPI HPI - GI History of Present Illness Chief Complaint: Abd Pain Informant: patient Abdominal Pain/Flank Pain Onset: Today and Hours Context: Gradual Onset Timing: Intermittent Quality: Aching Location: RUQ Current Severity: Moderate Maximum Severity: Moderate Nausea/Vomiting/Emesis GI Symptom: Positive for Nausea Severity: Mild Diarrhea/Melena/Hematochezia GI Symptom: Negative for Diarrhea, Melena or Hematochezia Associated Symptoms Associated Symptoms: Negative for Dysuria, Frequency, Hematuria or Urgency Narrative Narrative: 29-year-old female known history of gallstones and anemia. Has had diagnosis ofgallstones about a year. She is intermittent episodes where she gets biliary colic. She was seen recently had CAT scan and ultrasound within the last several weeks. She has an appointment set up to see Dr. Jorge Easley at [facility] on January 08. States she is having right upper quadrant pain tonight. Associated nausea. No fever. No vomiting. No diarrhea. No dysuria. She has never had any abdominal surgeries. Prior similar symptoms: Yes Recent Illness/Hospitalization: No PFSH PFSH Medical History Gallstone Wears contact lenses Depression [...] / Time No Known Allergies Allergy Verified 12/31/24 22:38 Family History Grandmother Diabetes Mother Heart disease Surgical History H/O adenoidectomy Social History Smoking Status: Current every day smoker tobacco type: e-cigarettes ROS ROS ED ROS Narrative Abdominal pain. Nausea. Constitutional Constitutional ED: Denies chills or fever(s) ENT ENT ED: Denies ear pain Cardiovascular Cardiovascular: Denies chest pain Respiratory/Chest Respiratory/Chest: Denies cough or dyspnea Gastrointestinal Gastrointestinal: Reports abdominal pain and nausea; Denies constipation, diarrhea, melena or vomiting Genitourinary Genitourinary ED: Denies dysuria or hematuria Musculoskeletal Musculoskeletal: Denies arthralgias, back pain, myalgias or neck pain Integumentary Denies abscess, Abrasions or rash Neurologic Neurologic: Denies headache(s) Psychiatric Psychiatric: Denies anxiety Endocrine Endocrinology: Denies polydipsia Hematologic/Lymphatic Hematologic/Lymphatic: Denies easy bleeding, easy bruising or lymphadenopathy Allergic/Immunologic Allergic/Immunologic ED: Denies mouth swelling, tongue swelling or urticaria EXAM Physical Exam Narrative Exam Narrative: 29-year-old female sitting upright in bed no acute distress. Vital signs stableafebrile. Does not appear to be septic toxic. H EENT exam pupils round react light. Mytrex membranes. No facial droop. Normal speech. Neck nontender no lymphadenopathy. Lungs clear to auscultation bilaterally. Heart regular rhythmno murmur. Rate about 100. Chest wall ribs nontender. Abdomen soft nondistended normal bowel sounds without peritoneal signs. She does have mild right upper quadrant tenderness but not a Porter sign. Right lower quadrant unremarkable abdomen is nondistended. There is no hernia or mass. Back nontender. Neurologically she is awake and alert. Answering questions following commands. Equal symmetrical 5 out of 5 mica patcher strength. Dorsi plantarflexion intact. No focal motor deficits. Const Vital Signs: 12/31/24 22:35 12/31/24 22:38 Temperature 98.3 F 98.3 F Temperature Source Oral Oral Pulse Rate 101 H 101 H Respiratory Rate 16 16 Blood Pressure 115/83 H 115/83 H Blood Pressure Mean 93 93 Pulse Ox 98 98 Oxygen Delivery Method Room Air Positive well nourished and well developed; Negative for cachectic, contracturesor unkempt General Appearance ED: well developed and NAD; Negative for unkempt, cachectic, contractures or pallor Nutritional Appearance: Negative for cachectic HEENT Reports moist mucous membranes normocephalic and atraumatic Eyes PERRL and EOMs intact bilaterally Neck no lymphadenopathy, supple and no JVD Resp normal respiratory effort and clear to auscultation bilaterally Cardio regular rate, regular rhythm, S1 normal heart sound, S2 normal heart sound and no murmurs GI non-distended and no masses; Negative for non-tender GI Narrative: Mild right upper quadrant tenderness. But no rebound guarding rigidity. No Porter sign. No hernia or mass. No obstruction. Auscultation: normoactive bowel sounds Palpation: soft and tender; Negative for guarding, rigid, hepatomegaly, splenomegaly, hernia, mass, pulsatile mass or rebound tenderness present Back/Spine no CVA tenderness General Back: Negative for CVA tenderness Cervical Spine: Negative for cervical spine tenderness Thoracic Spine / Upper Back: Negative for thoracic spinal tenderness Lumbar Spine / Lower Back: Negative for lumbar spinal tenderness Extremity full ROM General Extremety ED: Negative for edema or tenderness General Extremity: Negative for edema Neuro CN's II-XII intact bilaterally and moves all extremities Sensorium / Orientation: alert, oriented to person, oriented to place and oriented to time Motor Exam: strength 5/5 throughout Psych mental status grossly normal and thought process normal Appearance: Negative for unkempt Mood & Affect: Negative for depressed, anxious or tearful Skin no wounds General Skin Exam: Negative for jaundice or pallor Lesions: no lesions Rashes: no rashes Trauma: Negative for abrasion Nails: Negative for discolored MDM MDM MDM Narrative Medical decision making narrative: 29-year-old female with recurrent abdominal pain with a known history of gallstones. She will be treated with IV Toradol morphine. Zofran. Screening labs and a right upper quadrant ultrasound to be obtained. She has had recent similar workups for the recent CAT scan and a recent right upper quadrant ultrasound. She is an upcoming appointment with general surgery in about 8 days. Repeat exam at 11:32 PM patient doing well. Abdomen is currently benign. She does not have any right upper quadrant tenderness. We discussed her normal lab results. Awaiting her ultrasound result. Repeat exam patient is doing well at 11:52 PM. She will be discharged home withoutpatient follow-up with her general surgeon. Given home-going instructions toreturn if worse. History & Record Review Discussion w/independent historian: Patient Additional record(s) reviewed:: Prior inpatient record, Prior outpatient record,Prior ED visit and Prior labs Lab Data Attestation: I reviewed the patient's lab results. Lab results narrative: CBC normal. White count 8. H&H 12 and 38. Platelets 328. Chemistries show a normal gap of 14. Normal BUN and creatinine of 10 and 1.1. Glucose 98. Liver enzymes normal. Lipase normal at 36. Gallbladder ultrasound shows gallstones but no acute cholecystitis or obstruction. Labs: Laboratory Results - last 24 hr 12/31/24 23:05 WBC 8.3 RBC 4.77 Hgb 12.2 Hct 38.2 MCV 80.1 L MCH 25.6 L MCHC 31.9 L RDW Std Deviation 41.0 RDW Coeff of Marvin 14.0 Plt Count 328 MPV 10.7 Immature Gran % (Auto) 0.200 Neut % (Auto) 48.3 Lymph % (Auto) 38.6 [place] % (Auto) 9.4 Eos % (Auto) 2.5 Baso % (Auto) 1.0 Absolute Neuts (auto) 4.0 Absolute Lymphs (auto) 3.22 Nucleated RBC % 0 Sodium 138 Potassium 3.7 Chloride 104 Carbon Dioxide 20.5 L Anion Gap 14 BUN 10 Creatinine 1.10 Estim Creat Clear Calc 106.70 Est GFR (MDRD) Non-Af 69 BUN/Creatinine Ratio 9.1 L Glucose 98 Calcium 9.2 Total Bilirubin 0.29 AST 23 ALT 18 Alkaline Phosphatase 79 Total Protein 7.4 Albumin 4.1 Globulin 3.4 Albumin/Globulin Ratio 1.2 Lipase 36 Radiography Diagnostic Testing: Clinical Impression(s) from Imaging Studies Gallbladder Ultrasound 12/31/24 22:49 IMPRESSION: Gallstones and localized pain. If there is clinical concern for cholecystitis, recommend HIDA scanning. Reading Location: [place] [address] Discharge Plan Triage Chief Complaint: Abd Pain ED Provider: Jay Isaac Dx/Rx/DC Orders Clinical Impression: Abdominal pain, Biliary colic, Hx of gallstones Instructions: ED Gallstones with Biliary Colic Prescriptions: No Action dicyclomine 20 mg tablet 40 mg PO TID PRN (Reason: abdominal pain) Qty: 20 0RF quetiapine 25 mg tablet 25 mg PO QHS sertraline 100 mg tablet 150 mg PO DAILY ondansetron 4 mg tablet,disintegrating 4 mg PO TID PRN (Reason: nausea and vomiting) Qty: 21 0RF oxycodone-acetaminophen [Percocet] 5-325 mg tablet 1 tab PO Q6H PRN (Reason: pain) 3 Days Qty: 12 0RF Primary Care Provider: Care Physician,No Primary Referrals: Ion Easley MD [Med Staff - Active Staff] - As soon as possible Care Physician,No Primary [Primary Care Provider] - Activity Restrictions/Additional Instructions: Call your surgeon's office to see if they get you in sooner than . Tylenol and or Motrin for pain. If you have recurrent pain that you are unable to control, fever or intractable vomiting return. Otherwise just follow-up with your general surgeon. Print Language: Bolivian Disposition Disposition: Home, Self Care What to do if you have Problems For any increased pain, shortness of breath, bleeding, nausea or vomiting, chestpain, or any unexpected problems, contact your Primary Care Provider. Call for[MD] Registry ([phone]) or report to the closest Emergency Room. Call 911 if necessary. 12/31/24 8589 <Electronically signed by Jay Isaac MD> Cosigner Signature (if applicable): CC: No Primary Care Physician ~ Signed [facility] Work Phone: [phone]) 851-999707-28-2025 Discharge summary [facility] Medical Records Department [address] [place] [id number] Emergency Department Summary 12/16/24 MR#: [id number] Acct: [id number] Name: AGUEDA LEWIS Rep #:[id number] : 1995 29 From: Alison Deleon PCP: Care Physician,No Primary Status :REG ER Location: ED HPI HPI - GI History of Present Illness Chief Complaint: Abd Pain Informant: patient Narrative Narrative: Patient is a 29 year old female with history of biliary colic/gallstones, anxiety and depression presenting with worsening right upper quadrant abdominal pain. States started on (4 days ago)but is significantly worsening. She is able drink fluids not been able to eat anything for the past2 days because of pain. Denies associated nausea or vomiting. Denies any change in bowel movements.States she has had back pain this bad. [...] urinary symptoms. Denies any concern for . PFSH PFS Medical History Gallstone Wears contact lenses Depression [...] % (Auto) 65.2 Lymph % (Auto) 24.6 [place] % (Auto) 7.3 Eos % (Auto) 2.0 [...] Clarity Clear Urine pH 7.0 Ur Specific Pickett 1.010 Urine Protein Negative Urine Glucose (UA) [...] Positive sonographic Porter's sign. Hepatomegaly. Reading Location: [facility] Discharge Plan Triage Chief Complaint: Abd Pain [...] return to the emergency room. Print Language: Bolivian Disposition Disposition: Home, Self Care What to do if you have Problems For any increased pain, shortness of breath, bleeding, nausea or vomiting, chestpain, or any unexpected problems, contact your Primary Care Provider. Call Doctors Registry ([phone]) or report tothe closest Emergency Room. Call 911 if necessary. 12/16/24 1643 Cosigner Signature (if applicable): CC: No Primary Care Physician ~ Signed [facility]07-28-2025 Radiology Diagnostic study note [facility] Imaging Services [address] [place] [address] Gallbladder MR#: [id number] Acct: [id number] Name: AGUEDA LEWIS Rep #: [id number] : 1995 F 29 From: Serge Mujica MD PCP: Care Physician,No Primary Status: REG ER Study:Gallbladder Date of Exam: 12/16/24 Exam# [id number] Ordering Dr: Keren Dodson DO PROCEDURE: GALLBLADDER [...] Positive sonographic Porter's sign. Hepatomegaly. Reading Location: [facility] CC: Dr. Alison Dodson DO; No Primary Care Physician ~ Java Engineer: Signed [facility]07-28-2025 Discharge summary Author Alison Dodson [facility] Note Date/Time December 16, 2024 4:43 pm [facility] Medical Records Department [address] [facility] [place] [address] Emergency Department Summary 12/16/24 MR#: [id number] Acct: [id number] Name: AGUEDA LEWIS Rep #:[id number] : 1995 29 From: Alison Deleon [...] urinary symptoms. Denies any concern for . [facility] Medical History Gallstone Wears contact lenses Depression [...] % (Auto) 65.2 Lymph % (Auto) 24.6 [place] % (Auto) 7.3 Eos % (Auto) 2.0 [...] Clarity Clear Urine pH 7.0 Ur Specific Pickett 1.010 Urine Protein Negative Urine Glucose (UA) [...] Positive sonographic Porter's sign. Hepatomegaly. Reading Location: [id number] Discharge Plan Triage Chief Complaint: Abd Pain [...] return to the emergency room. Print Language: Bolivian Disposition Disposition: Home, Self Care What to do if you have Problems For any increased pain, shortness of breath, bleeding, nausea or vomiting, chestpain, or any unexpected problems, contact your Primary Care Provider. Call for[MD] Registry ([phone]) or report to the closest Emergency Room. Call 911 if necessary. 12/16/24 1643 <Electronically signed by Alison Dodson DO> Cosigner Signature (if applicable): CC: No Primary Care Physician ~ Signed [facility] Work Phone: [phone] 177-232507-28-2025 NoteHNO ID: [id number] Author: RICK MCKINNON APRN.CHRISTINE Service: ? Author Type: Nurse Practitioner Type: Progress Notes Filed: 12/16/2024 11:55 Note Text: URGENT CARE EZEL Cheri Lewis is a 29 year old [...] be seen at [facility] Rick Mckinnon APRN.CHRISTINE History and Record Review Clinical information obtained from an independent historian. History obtained from or confirmed by: parent. Disposition The patient was discharged. Transfer to ED was considered. Reason for not transferring: [facility] History of Present illness Narrative* Rick Mckinnon APRN.CHRISTINE - 12/16/2024 11:42 AM EDT URGENT CARE [facility] Agueda Lewis is a 29 [...] be seen at [facility] Rick Mckinnon APRN.CLOTHING CONSULTANT History and Record Review Clinical information obtained from an independent historian. History obtained from or confirmed by:parent. Disposition The patient was discharged. Transfer to ED was considered. Reason for not transferring: Procedures documented in [facility]07-[facility]-2025 Radiology Diagnostic study note [facility] Imaging Services [address] [place], [place] [id number] Abdomen/Pelvis W IV Cont ONLY MR#: [id number] Acct: [id number] Name: AGUEDA LEWIS Rep #: [id number] : 1995 F 29 From: Meche Chen MD PCP: Care Physician,No Primary Status: REG ER Study:Abdomen/Pelvis W IV Cont ONLY Date of E xam: 11/29/24 Exam# [id number] Ordering Dr: Akila Merritt DO PROCEDURE: ABDOMEN/PELVIS [...] sonography, clinical and laboratory correlation. 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 They have also made multiple attempts including mailing her a letter to let her know they'd clear her if she has the EKG they ordered. Per [facility], she never had this done. I am postponing the patient's surgery. She will need to call the office when she is ready to proceed. 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 They have also made multiple attempts including mailing her a letter to let her know they'd clear her if she has the EKG they ordered. Per [facility], she never had this done. I am postponing the patient's surgery. She will need to call the office when she is ready to proceed. documented in this encounterLicking [facility]05-28-2025 NoteHNO ID: [id number] Author: ASTRID GARCIA, RN Service: Nursing Author Type: Registered Nurse Type: Nursing Progress Note Filed: 10/16/2024 08:20 Note Text: Alison, in OR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 Lewis is a 28 y.o. year old who presents to the office with the following complaint(s): Chief Complaint Patient presents with New Patient Est care with Provider. Ed follow up abdominal pain. HPI: ED follow up - seen for abdominal pain - FDP 02/16/23, usually regular - sexually active - [...] DO 03/28/23 9:22 AM documented in this [facility]11-06-2023 Miscellaneous Notes* Addendum Note - Quintin Montiel DO - 03/27/2023 3:40 PM ESTAddended by: QUINTIN MONTIEL on: 03/28/2023 09:22 AM Modules accepted: Orders documented in this [place] [address]-06-2023 Note* Addendum Note - Quintin Montiel DO - 03/27/2023 3:40 PM ESTAddended by: QUINTIN MONTIEL on: 03/28/2023 09:22 AM Modules accepted: Orders [place] [id number] Note* Addendum Note - Quintin Montiel DO - 03/27/2023 3:40 PM ESTAddended by: QUINTIN MONTIEL on: 03/28/2023 09:22 AM Modules accepted: Orders [place] [id number] Note* Addendum Note - Quintin Montiel DO - 03/27/2023 3:40 PM ESTAddended by: QUINTIN MONTIEL on: 03/28/2023 09:22 AM Modules accepted: Orders [facility]10-06-2022 History of Present illness Narrative* Nerissa Haskins Ma - 02/24/2022 8:19 AM EDT POPULATION HEALTH NAVIGATION OUTREACH Action/FYI Called patient but was unable to leave message. TeleCIS Wirelesst message sent. Pt identified by name and : NO Outreach Outcome/Action Unable to reach patient: Phone number not valid / voicemail full HBCShart message sent Did you use a PCP flex slot to schedule this appointment? N/A Reason for Outreach HCC or suspected condition Payer: Payor: [facility] MEDICAID / Plan: [facility] MEDICAID / Product Type: Medicaid / [...] 24, 2022 8:19 AM documented in this encounterLicking Memorial Hospital06-13-2021 Hospital Discharge instructions* Instructions* Dmitry Valdez PA - 11/01/2020 Please follow-up with your primary care physician. Please try using Motrin at home. * Attachments The following attachments cannot be sent through Care Everywhere. * Numbness and Tingling (Bolivian) documented in this encounterSUMMA Work Phone: [phone] 653-693209-17-2015 History of Past illness Narrative* Problem Noted Date Resolved Date Insufficient care 02/05/201505/08 Overview: 02/05/15 - no visits since August until today - KJ Visual changes 10/28/2011 02/24/2016 documented as of this encounter (statuses as of 02/24/2022) [facility] History of Past illness Narrative* Problem Noted Date Diagnosed Date Resolved Date Insufficient care 02/05/2015 1 07/09/2014 Overview: 02/05/15 - no visits since August until today - KJ Visual changes 10/28/2011 02/24/2016 documented as of this encounter (statuses as of 04/17/2023) [facility] History of Past illness Narrative* Problem Noted Date Diagnosed Date Resolved Date Insufficient care 02/05/2015 1 07/09/2014 Overview: 02/05/15 - no visits since August until today - KJ Visual changes 10/28/2011 02/24/2016 documented as of this encounter (statuses as of 08/14/2023) [facility] note No data available for this section [facility] Evaluation note* Diagnosis Numbness- Primary Disturbance of skin sensation Cervical radiculopathy Brachial neuritis or radiculitis nos documented in this encounter [facility] Work Phone: Evaluation note* Diagnosis Epigastric pain- Primary Abdominal pain, epigastric Nausea and vomiting, unspecified vomiting type Missed menses documented in this encounter [facility] note* Diagnosis NO SHOW- Primary documented in this encounter [facility] note* Diagnosis Nausea and vomiting, unspecified vomiting type documented in this encounter [facility] note* Diagnosis Class 3 severe obesity due to excess calories with body mass index (BMI) of 40.0 to 44.9 in adult, unspecified whether serious comorbidity present (HCC)- Primary Family history of hypertrophic cardiomyopathy Family history of other cardiovascular diseases Preoperative clearance Preoperative examination, unspecified Gall stones Calculus of gallbladder without mention of cholecystitis or obstruction Chest pain, unspecified type documented in this encounter [facility] note* Diagnosis Calculus of gallbladder without cholecystitis without obstruction- Primary Calculus of gallbladder without mention of cholecystitis or obstruction RUQ abdominal pain Abdominal pain, right upper quadrant Chest pain, unspecified type documented in this encounter [facility] note* Diagnosis Gallstones- Primary Calculus of gallbladder without mention of cholecystitis or obstruction Biliary colic Calculus of gallbladder without mention of cholecystitis or obstruction Trichomonas infection Unspecified trichomoniasis documented in this encounter [facility] note* Diagnosis Family history of hypertrophic cardiomyopathy Family history of other cardiovascular diseases Chest pain, unspecified type documented in this encounter [facility] note* Diagnosis Encounter for gynecological examination (general) (routine) without abnormal findings- Primary Screening for cervical cancer Screening for malignant neoplasm of the cervix Encounter for screening for human papillomavirus (HPV) Special screening examination for human papillomavirus (HPV) Irregular menstrual cycle documented in this encounter [facility] note* Diagnosis Pain in both knees, unspecified chronicity- Primary documented in this encounter [facility] note* Diagnosis Irregular menstrual cycle documented in this encounter [facility] note* Diagnosis Calculus of gallbladder without cholecystitis without obstruction- Primary Calculus of gallbladder without mention of cholecystitis or obstruction 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 Tobacco use Tobacco use disorder documented in this encounter [facility] [facility] note* Diagnosis Acute pain of left shoulder- Primary Acute pain of left shoulder documented in this encounter [place] [facility] note* Diagnosis Acute pain of left shoulder documented in this encounter [place] [facility] note* Diagnosis Calculus of gallbladder without cholecystitis without obstruction- Primary Calculus of gallbladder without mention of cholecystitis or obstruction Calculus of gallbladder without cholecystitis without obstruction Calculus of gallbladder without mention of cholecystitis or obstruction documented in this encounter [place] [facility] note* Diagnosis Family history of hypertrophic cardiomyopathy- Primary Family history of other cardiovascular diseases Calculus of gallbladder without cholecystitis without obstruction Calculus of gallbladder without mention of cholecystitis or obstruction documented in this encounter [place] [facility] noteNo assessment information availableWOhioHealth [facility] Work Phone: Evaluation note* Diagnosis Right upper quadrant abdominal pain- Primary Abdominal pain, right upper quadrant [facility] Instructions Please eat smaller portions and a bland diet to help prevent recurrent pain from your gallbladder. Follow-up with general surgery as your gallbladder most likely be removed. Take the prescribed medication as directed if you have return of pain and return to the ER for any further concernsW[facility] Work Phone: Hospital Discharge instructionsAdditional Instructions Please call general surgery office tomorrow to schedule outpatient follow-up. You may turn to work tonight. If you develop worsening pain again, fever or yellow discoloration to your eyes please immediately return to the emergency room.[facility] Work Phone: Hospital Discharge instructionsAdditional Instructions Call your surgeon's office to see if they get you in sooner than 20th. Tylenol and or Motrin for pain. If you have recurrent pain that you are unable to control, fever or intractable vomiting return. Otherwise just follow-up with your general surgeon.[facility] Work Phone: Reason for referral (narrative)* Outpatient Procedure (Routine) - Pending Review Specialty Diagnoses / Procedures Referred By Mirela head Referred To Contact [facility] [place] Diagnoses Family history of hypertrophic cardiomyopathy Chest pain, unspecified type Procedures STRESS ECHO TREADMILL ECHO TTHRC R-T 2D W/WO M-MODE COMPLETE REST&ST Orestes Heath MD [address] [place] [phone] [facility] [place] [address] [place] [address] Referral ID Status Reason Start Date Expiration Date Visits Requested Visits Authorized [id number] Pending Review Auto-Generat ed Referral 08/14/2023 08/13/2024 1 1 * Outpatient Procedure (Routine) - Pending Review Specialty Diagnoses / Procedures Referred By Contdalton t Referred To Contact [facility] [place] Diagnoses Family history of hypertrophic cardiomyopathy Chest pain, unspecified type Procedures ECHO ECHO TTHRC R-T 2D W/WOM-MODE COMPL SPEC&COLR D Orestes Heath MD [address] [place] [phone] [facility] [place] [address] [place] [address] Referral ID Status Reason Start Date Expiration Date Visits Requested Visits Authorized [id number] Pending Review Auto-Generat ed Referral 08/14/2023 08/13/2024 1 1 [facility] for referral (narrative)* Outpatient Procedure (Routine) - Closed Specialty Diagnoses / Procedures Referred By Contac t Referred To Contact [facility] [place] Diagnoses Family history of hypertrophic cardiomyopathy Chest pain, unspecified type Procedures ECHO ECHO TTHRC R-T 2D W/WOM-MODE COMPL SPEC&COLR D Orestes Heath MD [address] [place] [address] [facility] [address] [place] [address] Referral ID Status Reason Start Date Expiration Date V isits Requested Visits Authorized [id number] Closed Auto-Generate d Referral 03/25/2024 05/24/2024 1 1 [facility] for referral (narrative)* Diagnostic Procedure Only (Routine) - Authorized Specialty Diagnoses / Procedures Referred By Contac t Referred To Contact [facility] Diagnoses Irregular menstrual cycle Procedures PELVIC US WHI US PELVIC NONOBSTETRIC REAL-TIME IMAGE Елена Holloway APRN.CNP [address] [place] [address] [facility] [address] [place] [address] Referral ID Status Reason Start Date Expiration Date Visits Requested Visits Authorized [id number] Authorized Auto-Generat ed Referral 06/03/2024 06/03/2025 1 1 [facility] for referral (narrative)No reason for referral information availableWOhioHealth Van [facility] Work Phone: Reason for visit Narrative* Outpatient Procedure (Routine) - Closed Specialty Diagnoses / Procedures Referred By Contac t Referred To Contact [facility] [place] Diagnoses Family history of hypertrophic cardiomyopathy Chest pain, unspecified type Procedures ECHO ECHO TTHRC R-T 2D W/WOM-MODE COMPL SPEC&COLR D Orestes Heath MD [address] [place] [address] [facility] [place] [address] [place] [address] Referral ID Status Reason Start Date Expiration Date V isits Requested Visits Authorized [id number] Closed Auto-Generate d Referral 03/25/2024 05/24/2024 1 1 [facility] for visit Narrative* Diagnostic Procedure Only (Routine) - Closed Specialty Diagnoses / Procedures Referred By Contac t Referred To Contact [facility] Diagnoses Irregular menstrual cycle Procedures PELVIC US WHI US PELVIC NONOBSTETRIC REAL-TIME IMAGE COMPLETE Елена Kim APRN.CLOTHING CONSULTANT [address] [place] [address] [facility] [address] [place] [phone] Referral ID Status Reason Start Date Expiration Date V isits Requested Visits Authorized [id number] Closed Auto-Generate d Referral 06/03/2024 06/03/2025 1 1 [facility] for visit Narrative* Diagnostic Procedure Only (Urgent) - Closed Specialty Diagnoses / Procedures Referred By Contac t Referred To Contact [facility] Diagnoses Acute pain of left shoulder Procedures XR SHOULDER GENERAL 3V OR MORE AP/TRUE AP/OTHER LEFT RADEX SHOULDER COMPLETE MINIMUM 2 VIEWS Francisco Combs MD [address] [place] [address] Phone: tel: fax: [place] [address] Referral ID Status Reason Start Date Expiration Date V isits Requested Visits Authorized [id number] Closed Auto-Generate d Referral 08/01/2024 08/31/2025 1 1 [facility] Summary Purpose Family History No Family History Records Found Relationship Condition Age at Onset Recorded Date/T rebecca grandmother Diabetes mellitus Unknown mother Cardiac disease Unknown Advance Directives No Advanced Directives Records Found Advance Directive Response Recorded Date/ Time Do you have a Healthcare Power of Lead Shipper? No November 29, 2024 12:06am Advance Directive Response Recorded Date/ Time Do you have a Healthcare Power of Lead Shipper? No December 16, 2024 12:25pm Do you have a Healthcare Power of Lead Shipper? No November 29, 2024 12:06am Advance Directive Response Recorded Date/ Time Do you have a Healthcare Power of Lead Shipper? No December 16, 2024 12:25pm Do you have a Healthcare Power of Lead Shipper? No December 31, 2024 11:12pm Do you have a Healthcare Power of Lead Shipper? No November 29, 2024 12:06am Chief Complaint and Reason for Visit Chief Complaint Admit Date abd pain November 29, 2024 12:0 5am Chief Complaint Admit Date abd pain November 29, 2024 12:0 5am abd pain December 16, 2024 11:5 6am Chief Complaint Admit Date abd pain November 29, 2024 12:0 5am abd pain December 16, 2024 11:5 6am ABD PAIN December 31, 2024 10 :33pm Additional Source Comments INFORMATION SOURCE (unrecogn ized section and content) DATE CREATED AUTHOR 11/13/2017 [facility] DATE CREATED AUTHOR AUTHOR'S ORGANIZ ATION 11/14/2017 [facility] DATE CREATED AUTHOR AUTHOR'S ORGANIZ ATION 12/09/2019 [facility] DATE CREATED AUTHOR AUTHOR'S ORGANIZ ATION 11/05/2020 [facility] DATE CREATED AUTHOR AUTHOR'S ORGANIZ ATION 02/16/2021 [facility] DATE CREATED AUTHOR AUTHOR'S ORGANIZ ATION 09/06/2023 [facility] DATE CREATED AUTHOR AUTHOR'S ORGANIZ ATION 04/04/2024 [facility] DATE CREATED AUTHOR AUTHOR'S ORGANIZ ATION 10/17/2024 [facility] DATE CREATED AUTHOR AUTHOR'S ORGANIZ ATION 12/17/2024 [facility] DATE CREATED AUTHOR AUTHOR'S ORGANIZ ATION 01/09/2025 [facility] Reason for Visit (unrecogniz ed section [...] 07/25/2023 Reason Comments CARD New Patient Consult BOILING OFF WINDER REF FOR PRE OP AND HEART MURMUR [...] or prosecute any alcohol or drug abuse patient.[facility] HospitalIn the event this information is protected by the Federal Confidentiality of Alcohol and Drug Abuse Patient Records regulations: The Federal rules restrict any use of the information to criminally investigate or prosecute any alcohol or drug abuse patient.[facility] HospitalIn the event this information is protected by the Federal Confidentiality of Alcohol and Drug Abuse Patient Records regulations: The Federal rules restrict any use of the information to criminally investigate or prosecute any alcohol or drug abuse patient.[facility] HospitalIn the event this information is protected by the Federal Confidentiality of Alcohol and Drug Abuse Patient Records regulations: The Federal rules restrict any use of the information to criminally investigate or prosecute any alcohol or drug abuse patient.[facility] HospitalIn the event this information is protected by the Federal Confidentiality of Alcohol and Drug Abuse Patient Records regulations: The Federal rules restrict any use of the information to criminally investigate or prosecute any alcohol or drug abuse patient.[facility] HospitalIn the event this information is protected by the Federal Confidentiality of Alcohol and Drug Abuse Patient Records regulations: The Federal rules restrict any use of the information to criminally investigate or prosecute any alcohol or drug abuse patient.[facility] HospitalIn the event this information is protected by the Federal Confidentiality of Alcohol and Drug Abuse Patient Records regulations: The Federal rules restrict any use of the information to criminally investigate or prosecute any alcohol or drug abuse patient.[facility] HospitalIn the event this information is protected by the Federal Confidentiality of Alcohol and Drug Abuse Patient Records regulations: The Federal rules restrict any use of the information to criminally investigate or prosecute any alcohol or drug abuse patient.[facility] HospitalIn the event this information is protected by the Federal Confidentiality of Alcohol and Drug Abuse Patient Records regulations: The Federal rules restrict any use of the information to criminally investigate or prosecute any alcohol or drug abuse patient.[facility] HospitalIn the event this information is protected by the Federal Confidentiality of Alcohol and Drug Abuse Patient Records regulations: The Federal rules restrict any use of the information to criminally investigate or prosecute any alcohol or drug abuse patient.[facility] HospitalIn the event this information is protected by the Federal Confidentiality of Alcohol and Drug Abuse Patient Records regulations: The Federal rules restrict any use of the information to criminally investigate or prosecute any alcohol or drug abuse patient.[facility] HospitalIn the event this information is protected by the Federal Confidentiality of Alcohol and Drug Abuse Patient Records regulations: The Federal rules restrict any use of the information to criminally investigate or prosecute any alcohol or drug abuse patient.[facility] HospitalIn the event this information is protected by the Federal Confidentiality of Alcohol and Drug Abuse Patient Records regulations: The Federal rules restrict any use of the information to criminally investigate or prosecute any alcohol or drug abuse patient.[facility] HospitalIn the event this information is protected by the Federal Confidentiality of Alcohol and Drug Abuse Patient Records regulations: The Federal rules restrict any use of the information to criminally investigate or prosecute any alcohol or drug abuse patient.[facility] HospitalIn the event this information is protected by the Federal Confidentiality of Alcohol and Drug Abuse Patient Records regulations: The Federal rules restrict any use of the information to criminally investigate or prosecute any alcohol or drug abuse patient.[facility] HospitalIn the event this information is protected by the Federal Confidentiality of Alcohol and Drug Abuse Patient Records regulations: The Federal rules restrict any use of the information to criminally investigate or prosecute any alcohol or drug abuse patient.[facility] HospitalIn the event this information is protected by the Federal Confidentiality of Alcohol and Drug Abuse Patient Records regulations: The Federal rules restrict any use of the information to criminally investigate or prosecute any alcohol or drug abuse patient.[facility] HospitalIn the event this information is protected by the Federal Confidentiality of Alcohol and Drug Abuse Patient Records regulations: The Federal rules restrict any use of the information to criminally investigate or prosecute any alcohol or drug abuse patient.[facility] HospitalIn the event this information is protected by the Federal Confidentiality of Alcohol and Drug Abuse Patient Records regulations: The Federal rules restrict any use of the information to criminally investigate or prosecute any alcohol or drug abuse patient.[facility] Care Teams (unrecognized sec tion and content) Sound Designer Relationship Specialty Start Date End Date Zulema Sorto DO [address] [address] PCP - General Family Medicine 03/27/23 Sound Designer Relationship Specialty Start Date End Date Zulema Dunlap DO [address] [address] PCP - General Family Medicine 03/27/23 Sound Designer Relationship Specialty Start Date End Date Zulema Dunlap DO [address] [address] PCP - General Family Medicine 03/27/23 Sound Designer Relationship Specialty Start Date End Date Quintin Montiel DO [address] [address] PCP - General Family Medicine 05/12/23 Sound Designer Relationship Specialty Start Date End Date Quintin Montiel DO [address] [address] PCP - General Family Medicine 05/12/23 Sound Designer Relationship Specialty Start Date End Date Quintin Montiel DO [address] [address] PCP - General Family Medicine 05/12/23 Sound Designer Relationship Specialty Start Date End Date Quintin Montiel DO [address] [address] PCP - General Family Medicine 05/12/23 Sound Designer Relationship Specialty Start Date End Date Zulema Dunlap DO 55 [facility] [address] [place] [address] PCP - General Family Medicine 03/27/23 Sound Designer Relationship Specialty Start Date End Date Zulema Dunlap DO [address] [address] PCP - General Family Medicine 03/27/23 Sound Designer Relationship Specialty Start Date End Date Zulema Dunlap DO [address] [address] PCP - General Family Medicine 03/27/23 Sound Designer Relationship Specialty Start Date End Date Quintin Montiel DO [address] [address] PCP - General Family Medicine 05/12/23 Sound Designer Relationship Specialty Start Date End Date Quintin Montiel DO [address] [address] PCP - General Family Medicine 05/12/23 Sound Designer Relationship Specialty Start Date End Date Quintin Montiel DO [address] [address] PCP - General Family Medicine 05/12/23 Sound Designer Relationship Specialty Start Date End Date Zulema Dunlap DO [address] [place] [address] PCP - General Family Medicine 03/27/23 Sound Designer Relationship Specialty Start Date End Date Quintin Montiel DO [address] [place] [address] PCP - General Family Medicine 05/12/23 Sound Designer Relationship Specialty Start Date End Date Quintin Montiel DO [address] [place] [address] PCP - General Family Medicine 05/12/23 Sound Designer Relationship Specialty Start Date End Date Quintin Montiel DO [address] [place] [address] PCP - General Family Medicine 08/20/24 Orestes Heath MD [address] [place] [phone] Cardiology 08/20/24 Sound Designer Relationship Specialty Start Date End Date Quintin Montiel DO [address] [place] [address] PCP - General Family Medicine 08/20/24 Orestes Heath MD [address] [place] [phone] Cardiology 08/20/24 Sound Designer Relationship Specialty Start Date End Date Quintin Montiel DO [address] [place] [address] PCP - General Family Medicine 08/20/24 Orestes Heath MD [address] [place] [phone] Cardiology 08/20/24 Sound Designer Relationship Specialty Start Date End Date Quintin Montiel DO [address] [place] [address] PCP - General Family Medicine 08/20/24 Orestes Heath MD [address] [place] [address] Cardiology 08/20/24 Team Status: Active Member Role/Relationship [...] December 16, 2024 Dr. Alison Dodson , Emergency Provider Active Start: December 16, 2024 End: December 16, 2024 Sound Designer Relationship Specialty Start Date End Date Orestes Heath MD [address] [place] [address] (Fax) Cardiology 08/20/24 Team Status: Inactive Member Role/Relationship Status Dates No Primary Care Physician Primary Care Provider Active Start: December 16, 2024 End: December 16, 2024 Dr. Alison Dodson DO Attending Provider Active Start: December 16, 2024 End: December 16, 2024 Dr. Alison Dodson DO Emergency Provider Active Start: December 16, 2024 End: December 16, 2024 Team Status: Inactive Member Role/Relationship Status Dates No Primary Care Physician Primary Care Provider Active Start: December 31, 2024 End: January 01, 2025 Dr. Jay Isaac MD Emergency Provider Active S tart: December 31, 2024 End: January 01, 2025 Scheduled Active and Recently Administ ered Medications [...] BE BASED ON THE PRIMARY CLINICAL RECORDS. [employer] provides no warranty or guarantee of the accuracy or completeness of information in this document.
[2025-02-08 18:16] LABS: Hematocrit 37.9 % (37-47); Hemoglobin 12.1 g/dL (12.0-15.0); Immature Granulocytes Count 0.010 X10^3/uL (0.0-0.0); Mean Corp Hgb Conc 31.9 g/dL (32-36); Mean Corpuscular Volume 80.8 fL (81-99); Mean Platelet Vol. 11.6 fl (6.2-12.0); NRBC Flagged by Analyzer 0 % (0-5); Platelet Count 323 K/mm3 (150-450); RBC Distribution Width CV 14.1 % (11.6-14.6); RBC Distribution Width SD 41.1 fl (35.1-43.9); Red Blood Count 4.69 M/mm3 (4.2-5.4); White Blood Count 6.9 K/mm3 (4.4-11.0)
[2025-02-08 18:23] LABS: Internal QC Validated? YES +Cl - CLEAR BKGD; Pregnancy, Serum, hCG Quali. NEGATIVE Negative; Record Kit Lot#, Serum Preg. 0000964736
[2025-02-08 18:31] LABS: AST(SGOT) 19 U/L (<=31); Alanine Aminotransfer ALT/SGPT 15 U/L (<=34); Albumin, Serum 4.2 g/dL (3.5-5.0); Alkaline Phosphatase 76 U/L (35-104); Anion Gap 12 (5-15); BUN 9 mg/dL (4-19); BUN/Creat Ratio 9.2 RATIO (10-20); Bilirubin, Direct 0.11 mg/dL (0.00-0.30); Calcium,Total 9.2 mg/dL (7.6-11.0); Carbon Dioxide 21.3 mmol/L (21.0-32.0); Chloride 105 mmol/L (98-108); Estimated Creatinine Clearance 115.65 ml/min (50-250); Globulin 3.1 g/dL (2.2-4.2); Glucose 82 mg/dL (70-99); Lipase 40 U/L (13-75); Potassium 3.9 mmol/L (3.3-5.1)
--- NOTE | 2025-02-08 19:02 | CT_ITS ---
PROCEDURE: ABDOMEN/PELVIS W IV CONT ONLY 02/08/2025 REASON FOR EXAM: UPPER ABD PAIN TECHNIQUE: Procedure Code: [id number] Modality: CT Procedure: ABDOMEN/PELVIS W IV CONT ONLY Coronal and Sagittal reconstruction series were provided. CONTRAST: Please see CT VOLUME: Please see CT mL One or more dose reduction techniques were used (e.g., Automated exposure control, adjustment of the mA and/or kV according to patient size, use of iterative reconstruction technique. RADIATION DOSE SUMMARY: CTDlvol: Please see CT mGy DLP: 1151.13 mGycm COMPARISON: None FINDINGS: Lung bases: No acute infiltrate or effusion at the visualized lung bases. Liver: Hepatic length is 18.3 cm. Hepatic attenuation is consistent with mild steatosis. Gallbladder/biliary: Mildly distended gallbladder measuring 10 cm in length. The gallbladder is full of gas containing gallstones. No calcified gallstones. No significant biliary dilation. If there are symptoms related to the gallbladder, consider ultrasound for further assessment. Mild cholecystitis or gallbladder dyskinesis can not be ruled out by this study. Pancreas: No pancreatic inflammation. No pancreatic ductal dilation. Spleen: The spleen is not enlarged. Adrenals: The adrenal glands are unremarkable. Kidneys/ureters: The kidneys enhance symmetrically without hydronephrosis. No renal calculi. No imaging evidence of pyelonephritis. Gastrointestinal: No hiatal hernia. The stomach is not sufficiently distended to evaluate wall thickening. No perigastric inflammation. No appearance of a complete bowel obstruction. Nonspecific fluid-filled loops of small bowel. No focal mesenteric inflammation. Small nonspecific mesenteric lymph nodes. Scattered fecal material and gas slightly distending portions of the colon and rectum could be correlated for mild constipation. No pericolonic inflammation. No evidence of acute diverticulitis. Appendix: The appendix does not appear inflamed. Peritoneal/retroperitoneal: No free intraperitoneal air. Small amount of free fluid seen within the pelvis. Vascular: No abdominal aortic aneurysm, dissection or retroperitoneal hemorrhage. Lymph nodes: No pathologic appearing lymphadenopathy by size criteria. Urinary bladder: No urinary bladder wall thickening for degree of distention. No calculi or gas within the urinary bladder. No perivesical stranding. Reproductive: Slightly heterogeneous anteverted uterus measuring 8.7 cm in length. The endometrial complex is not well assessed by this technique. Gas within the vagina could be iatrogenic. The ovaries are not conclusively identified. If there are pelvic symptoms consider ultrasound. Soft tissues: No body wall hematoma or soft tissue emphysema. Osseous: No acute osseous abnormality. CT/Abdomen/Pelvis W IV Cont ONLY IMPRESSION: Mildly distended gallbladder full of gallstones. If there are related symptoms, consider ultrasound for further assessment as di scussed above. - Nonspecific gastrointestinal findings to be correlated with any GI symptoms. - Small amount of free fluid within the pelvis. The cause of this fluid is indeterminate but could be physiologic in a female p atient of this age. If there are pelvic symptoms, consider ultrasound for more detailed assessment. - Other findings discussed above. Reading Location: [id number]
--- NOTE | 2025-02-08 19:02 | CM.ED ---
Social Work Date of referral: 02/08/25 Reason for referral: Resources for recent loss/miscarriage and no primary care physician (PCP) on file. Referred by: Social Work identification Patient provided consent to social work visit. Zookeeper offered support for recent loss/miscarriage and provided patient with resources for loss/grief/individual and/or group support. Patient also confirmed she is not yet connected to a PCP so Zookeeper provided patient with a written handout for the [facility] which patient accepted and expressed appreciation for. Tayla Bryant, SOLAR SYSTEMS DESIGNER, MORTGAGE LOAN UNDERWRITER
[2025-02-08 19:20] VITALS: BP 129/76; PULSE 71; RESP 18; O2SAT 98
[2025-02-08 19:26] LABS: Mucous, Urine 0 SEEN /hpf (<or=2+)
[2025-02-08 19:27] LABS: Color, Urine Yellow (Yellow); Glucose, Dipstick Normal (Normal); Ketone-Dipstick Negative (Negative); Leukocyte Esterase-Dipstick 25 /ul (Negative); Nitrite-Dipstick Positive (Negative); Occult Blood-Urine 10 /ul (Negative); Protein-Dipstick 30 mg/dl (Negative); Specific Gravity, Urine 1.025 (1.002-1.030); Urine Bilirubin Dipstick Negative (Negative)
[2025-02-08 19:34] LABS: Red Blood Cells-Urine 0-5 SEEN /hpf (0-5); Squamous Epithelial Cells - UA 5-10 SEEN /hpf (5-10)
[2025-02-08 20:05] VITALS: BP 116/91; PULSE 61; RESP 18; O2SAT 100
[2025-02-08 22:00] VITALS: BP 112/82; PULSE 57; RESP 16; O2SAT 99
[2025-02-08 22:22] VITALS: BP 118/92; PULSE 60; RESP 18; TEMP 36.6; O2SAT 99
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
== END 2025-02-08 22:40 | disposition home or self-care (01) ==
PROVIDERS: Emergency Provider Emergency Medicine; Visit Provider Emergency Medicine
DX: R10.13 Epigastric pain (principal); K80.20 Calculus of gallbladder without cholecystitis without obstruction; K82.8 Other specified diseases of gallbladder; F41.9 Anxiety disorder, unspecified; F17.290 Nicotine dependence, other tobacco product, uncomplicated; F32.A Depression, unspecified; R10.11 Right upper quadrant pain
CPT/HCPCS: 74177; 80048; 80076; 81001; 83690; 84703; 85025; 87086; 87088; 87186; 96361; 96374; 99285; Q9967; A4216

== ENCOUNTER 2025-02-18 19:16 | Emergency (ER) | payer MEDICAID, SELFPAY ==
[2025-02-18 19:16] VITALS: BP 132/92; PULSE 98; RESP 18; TEMP 36.8; O2SAT 99; BMI 34.7
--- NOTE | 2025-02-18 19:44 | US_ITS ---
PROCEDURE: GALLBLADDER 02/18/2025 REASON FOR EXAM: PAIN. Known gallstones. TECHNIQUE: Procedure Code: USGB Modality: US Procedure: GALLBLADDER COMPARISON: CT Abdomen and Pelvis w/Contrast, 02/08/2025 US gallbladder, 12/31/2024 FINDINGS: LIVER ECHOGENICITY: Mild increase in hepatic parenchymal echogenicity. SIZE: Enlarged measuring 17.3 cm in length. CONTOUR: Smooth. MASS: None. PORTAL VEIN: Normal direction hepatopetal portal venous flow. GALLBLADDER SIZE: Normal. STONES: Multiple. SLUDGE: None. WALL THICKNESS: Normal measuring 2.9 mm. PERICHOLECYSTIC FLUID: None. SONOGRAPHIC PORTER'S SIGN: Positive. BILE DUCTS: Normal with the CBD measuring 3.1 mm in diameter. PANCREAS: Unremarkable as visualized. The distal pancreas is obscured by overlying bowel gas. RIGHT KIDNEY: Normal size and echogenicity with a length of 11.5 cm. No hydronephrosis, nephrolithiasis, cyst or mass seen. ASCITES/EFFUSIONS: None. OTHER: None. US/Gallbladder IMPRESSION: 1. Cholelithiasis with positive sonographic Porter's sign. Correlate clinical ly for signs of acute cholecystitis. 2. Hepatomegaly with diffuse hepatic steatosis. Reading Location: [id number]
--- NOTE | 2025-02-18 19:45 | ED.VIS.GI ---
HPI HPI - GI History of Present Illness Chief Complaint: Abd Pain Narrative Narrative: 29-year-old female past medical history of known gallstones is supposed to see Dr. Flores with general surgery about a cholecystectomy on , 2 days from now. She states has been dealing with gallstone problems and biliary colic for the last year. She denies any recent fevers or chills. She was nauseated and vomited once today. Her pain started today and was being controlled with Tylenol and ibuprofen, but has gotten worse over time. She states she usually receives morphine when she has to come to the emergency department. She has right upper quadrant pain but denies radiation to the back. No other exacerbating or alleviating factors. No fevers or chills. PFSH PFSH Medical History Gallstone Wears contact lenses Depression Anxiety Easy bruising Back pain Gastric reflux Vapes nicotine containing substance History of stress test Anemia Home Medications ?Medication ?Instructions ?Recorded ?Last Taken ?Type quetiapine 25 mg tablet 25 mg PO QHS 11/27/23 Unknown History sertraline 100 mg tablet 150 mg PO DAILY 11/27/23 Unknown History ciprofloxacin HCl 500 mg tablet 500 mg PO BID 5 days #10 tabs 02/10/25 Unknown Rx (Cipro) ondansetron 4 mg disintegrating 4 mg PO Q8H PRN PRN Nausea #10 tabs 02/18/25 Unknown Rx tablet oxycodone-acetaminophen 5 mg-325 1 tab PO Q6H PRN pain 3 days #12 02/18/25 Unknown Rx mg tablet (Percocet) tabs Allergy/AdvReac Type Severity Reaction Status Date / Time No Known Allergies Allergy Verified 02/18/25 19:16 Family History Grandmother Diabetes Mother Heart disease Surgical History H/O adenoidectomy Social History Smoking Status: Current every day smoker tobacco type: e-cigarettes ROS ROS ED ROS Narrative Review of systems positive for epigastric to right upper quadrant pain. Known history of gallstones. 1 episode of nausea and vomiting, nonbloody. No fevers or chills. Initially controlled with Tylenol or ibuprofen, but now pain in right upper quadrant worsening. No radiation to back. EXAM Physical Exam Narrative Exam Narrative: Afebrile. Vital signs noted. Nontoxic-appearing. Cardiovascular examination reveals a regular rate and rhythm. Lungs are clear to auscultation bilaterally. The abdomen is soft with mild tenderness to palpation in the right upper quadrant, questionable Porter sign. No true rebound or guarding. Positive bowel sounds. Neurological examination nonfocal, nonlateralizing. Moves all extremities. Const Vital Signs: 02/18/25 19:16 Temperature 98.2 F Temperature Source Oral Pulse Rate 98 Respiratory Rate 18 Blood Pressure 132/92 H Blood Pressure Mean 105 Pulse Ox 99 Oxygen Delivery Method Room Air MDM MDM MDM Narrative Medical decision making narrative: The differential diagnosis includes but not limited to acute cholecystitis versus choledocholithiasis versus biliary colic versus pancreatitis. Patient is currently afebrile. She is not jaundiced in her skin. She was administered morphine and ondansetron for analgesia and bolused normal saline 1 L IV. I will obtain her laboratory work to look for pancreatitis/gallstone pancreatitis in the form of CBC, CMP, and lipase. Ultrasound will be obtained as well. I reviewed her laboratory work and she has normal white count of 7.9, hemoglobin stable 11.5, hematocrit 36.4. Platelet count normal at 262. CMP shows chloride slightly elevated at 109 which I think is nonspecific, carbon dioxide of 20.6. Glucose 81. AST normal at 26, ALT 21 and alk phos 75 with total bilirubin 0.22. Lipase normal at 46 so I doubt pancreatitis. I do not feel that she needs CT imaging. Ultrasound was obtained of the right upper quadrant. She has multiple gallstones. I do not think that she has an acute cholecystitis as she has no white count, no fever. Upon repeat examination, she states she has mild improvement of her pain. At this point in time, I think she has more biliary colic from her gallstones. She was given a prescription for oxycodone-acetaminophen 12 tablets as well as Zofran ODT's. I feel she can be discharged safely home with follow-up to her surgeon Dr. Flores 2 days from now as scheduled. Return instructions to the emergency department were reviewed. Disposition is discharged home in stable condition. History & Record Review Discussion w/independent historian: Patient Additional record(s) reviewed:: Prior ED visit (Prior gallbladder issues) Lab Data Attestation: I reviewed the patient's lab results. Labs: Laboratory Results - last 24 hr 02/18/25 20:00 WBC 7.9 RBC 4.48 Hgb 11.5 L Hct 36.4 L MCV 81.3 MCH 25.7 L MCHC 31.6 L RDW Std Deviation 43.1 RDW Coeff of Marvin 14.6 Plt Count 262 MPV 11.4 Immature Gran % (Auto) 0.100 Neut % (Auto) 53.6 Lymph % (Auto) 32.2 [place] % (Auto) 10.6 H Eos % (Auto) 2.9 Baso % (Auto) 0.6 Absolute Neuts (auto) 4.3 Absolute Lymphs (auto) 2.56 Nucleated RBC % 0 Sodium 141 Potassium 3.7 Chloride 109 H Carbon Dioxide 20.6 L Anion Gap 11 BUN 9 Creatinine 0.95 Estim Creat Clear Calc 123.60 Est GFR (MDRD) Non-Af 83 BUN/Creatinine Ratio 8.9 L Glucose 81 Calcium 8.9 Total Bilirubin 0.22 AST 26 ALT 21 Alkaline Phosphatase 75 Total Protein 6.9 Albumin 4.0 Globulin 2.9 Albumin/Globulin Ratio 1.4 Lipase 46 Radiography Diagnostic Testing: Clinical Impression(s) from Imaging Studies Gallbladder Ultrasound 02/18/25 19:44 IMPRESSION: 1. Cholelithiasis with positive sonographic Porter's sign. Correlate clinically for signs of acute cholecystitis. 2. Hepatomegaly with diffuse hepatic steatosis. Reading Location: [facility] Discharge Plan Triage Chief Complaint: Abd Pain ED Provider: Roshan Monroy Dx/Rx/DC Orders Clinical Impression: Right upper quadrant abdominal pain, Biliary colic, Gallstones Instructions: ED Gallstones with Biliary Colic Prescriptions: New oxycodone-acetaminophen [Percocet] 5-325 mg tablet 1 tab PO Q6H PRN (Reason: pain) 3 Days Qty: 12 0RF ondansetron 4 mg tablet,disintegrating 4 mg PO Q8H PRN PRN (Reason: Nausea) Qty: 10 0RF No Action quetiapine 25 mg tablet 25 mg PO QHS sertraline 100 mg tablet 150 mg PO DAILY ciprofloxacin HCl [Cipro] 500 mg tablet 500 mg PO BID 5 Days Qty: 10 0RF Primary Care Provider: Care Physician,No Primary Referrals: Rob Flores MD [Med Staff - Active Staff, General Surgery] - Keep [facility] appointment Care Physician,No Primary [Primary Care Provider, Medical] Activity Restrictions/Additional Instructions: Follow-up with Dr. Flores as scheduled on . Return with fever, jaundice, new or worsening symptoms. Print Language: Libyan Disposition Disposition: Home, Self Care
[2025-02-18] MEDS: 0.9% Normal Saline (1000mL) 1,000 ML 999 ML IV (20:02)
[2025-02-18 20:13] LABS: Hematocrit 36.4 % (37-47); Hemoglobin 11.5 g/dL (12.0-15.0); Immature Granulocytes Count 0.010 X10^3/uL (0.0-0.0); Mean Corp Hgb Conc 31.6 g/dL (32-36); Mean Corpuscular Volume 81.3 fL (81-99); Mean Platelet Vol. 11.4 fl (6.2-12.0); NRBC Flagged by Analyzer 0 % (0-5); Platelet Count 262 K/mm3 (150-450); RBC Distribution Width CV 14.6 % (11.6-14.6); RBC Distribution Width SD 43.1 fl (35.1-43.9); Red Blood Count 4.48 M/mm3 (4.2-5.4); White Blood Count 7.9 K/mm3 (4.4-11.0)
[2025-02-18 20:58] LABS: AST(SGOT) 26 U/L (<=31); Alanine Aminotransfer ALT/SGPT 21 U/L (<=34); Albumin, Serum 4.0 g/dL (3.5-5.0); Alkaline Phosphatase 75 U/L (35-104); Anion Gap 11 (5-15); BUN 9 mg/dL (4-19); BUN/Creat Ratio 8.9 RATIO (10-20); Calcium,Total 8.9 mg/dL (7.6-11.0); Carbon Dioxide 20.6 mmol/L (21.0-32.0); Chloride 109 mmol/L (98-108); Estimated Creatinine Clearance 123.60 ml/min (50-250); Globulin 2.9 g/dL (2.2-4.2); Glucose 81 mg/dL (70-99); Lipase 46 U/L (13-75); Potassium 3.7 mmol/L (3.3-5.1)
[2025-02-18 21:16] VITALS: PULSE 77; RESP 16; O2SAT 98
[2025-02-18 21:52] VITALS: BP 114/73; PULSE 84; RESP 15; O2SAT 100
[2025-02-18 21:55] VITALS: BP 132/92; PULSE 77; RESP 16; TEMP 36.8; O2SAT 98
== END 2025-02-18 21:55 | disposition home or self-care (01) ==
PROVIDERS: Emergency Provider Emergency Medicine; Visit Provider Emergency Medicine
DX: R10.11 Right upper quadrant pain (principal); K80.20 Calculus of gallbladder without cholecystitis without obstruction; K80.50 Calculus of bile duct without cholangitis or cholecystitis without obstruction; F17.210 Nicotine dependence, cigarettes, uncomplicated; F41.9 Anxiety disorder, unspecified; F32.A Depression, unspecified
CPT/HCPCS: 76705; 80053; 83690; 85025; 96361; 96374; 96375; 99282; A4216; J2405

== ENCOUNTER 2025-02-26 16:01 | Emergency (ER) | payer SELFPAY ==
[2025-02-26 16:02] VITALS: BP 123/79; PULSE 92; RESP 18; TEMP 36.1; O2SAT 99; BMI 32.1
--- NOTE | 2025-02-26 16:27 | EDS_ITS ---
HPI History of Present Illness Chief Complaint: Head Injury Narrative Narrative: 30-year-old female past medical history of gallstones, presents from urgent care status post fall. She states that she was at home a few hours ago, and had a mechanical fall. She fell forward and struck the left side of her head/forehead. She denies loss of consciousness. No neck pain. She states she has a headache and is slightly nauseated. She denies other injury. She states that she went to urgent care originally, and they sent her here because she was lightheaded, dizzy, and almost fell over. No paresthesias of arms or legs, no other injury. [facility] Medical History Gallstone Wears contact lenses Depression Anxiety Easy bruising Back pain Gastric reflux Vapes nicotine containing substance History of stress test Anemia Home Medications ?Medication ?Instructions ?Recorded ?Last Taken ?Type quetiapine 25 mg tablet 25 mg PO QHS 11/27/23 Unknow n History sertraline 100 mg tablet 150 mg PO DAILY 11/27/23 Unk nown History ciprofloxacin HCl 500 mg tablet 500 mg PO BID 5 days # 10 tabs 02/10/25 Unknown Rx (Cipro) ondansetron 4 mg disintegrating 4 mg PO Q8H PRN PRN Na usea #10 tabs 02/18/25 Unknown Rx tablet oxycodone-acetaminophen 5 mg-325 1 tab PO Q6H PRN pain 3 days #12 02/18/25 Unknown Rx mg tablet (Percocet) tabs Allergy/AdvReac Type Severity Reaction Status Date / Time No Known Allergies Allergy Verified 02/18/25 19:16 Family History Grandmother Diabetes Mother Heart disease Surgical History H/O adenoidectomy Social History Smoking Status: Current every day smoker tobacco type: e-cigarettes ROS ROS ED ROS Narrative Review of systems positive for lightheadedness, dizziness, headache, left forehead/scalp tenderness. No neck pain. Positive nausea but no vomiting. No paresthesias. Denies other injuries. EXAM Physical Exam Narrative Exam Narrative: GCS 15. ABCs are intact. Cardiovascular examination reveals regular rate and rhythm. Lungs are clear to auscultation bilaterally. Abdomen is soft and nontender without guarding or rebound. Positive bowel sounds. Neurological examination is nonfocal, nonlateralizing. She is awake, alert, oriented to person, place, and time. Able to raise arms above head without difficulty. Mild tenderness to palpation of left scalp with no crepitance, no clinical depressed skull fracture. PERRL, EOMI. Const Vital Signs: 02/26/25 16:02 Temperature 96.9 F L Temperature Source Temporal Pulse Rate 92 Respiratory Rate 18 Blood Pressure 123/79 H Blood Pressure Mean 93 Pulse Ox 99 Oxygen Delivery Method Room Air MDM MDM MDM Narrative Medical decision making narrative: Differential diagnosis includes but not limited to closed head injury with mild concussion versus intracranial hemorrhage versus skull fracture versus scalp contusion. Clinically, I have very low suspicion for intracranial hemorrhage. She does not take blood thinners. There is no loss of consciousness. Patient states she has Zofran at home. She has not taken any analgesics as of yet. She will be given a Zofran ODT and Tylenol here. I discussed with her the utility of a CT scan, and given the low probability of intracranial hemorrhage, through shared decision making she declined. She feels well enough to be discharged. She will be symptomatic. She will follow-up with her primary care provider in 7 to 10 days if her symptoms are not improving. Return instructions to the emergency department were reviewed. Disposition is discharged home in stable condition. History & Record Review Discussion w/independent historian: Patient Additional record(s) reviewed:: Prior ED visit (Seen for gallstones) Discharge Plan Triage Chief Complaint: Head Injury ED Provider: Rosahn Monroy Dx/Rx/DC Orders Clinical Impression: Fall, Closed head injury, Mild concussion Instructions: ED Concussion, ED Head Injury (Adult) Prescriptions: No Action oxycodone-acetaminophen [Percocet] 5-325 mg tablet 1 tab PO Q6H PRN (Reason: pain) 3 Days Qty: 12 0RF ondansetron 4 mg tablet,disintegrating 4 mg PO Q8H PRN PRN (Reason: Nausea) Qty: 10 0RF quetiapine 25 mg tablet 25 mg PO QHS sertraline 100 mg tablet 150 mg PO DAILY ciprofloxacin HCl [Cipro] 500 mg tablet 500 mg PO BID 5 Days Qty: 10 0RF Primary Care Provider: Care Physician,No Primary Referrals: Care Physician,No Primary [Primary Care Provider, Medical] Activity Restrictions/Additional Instructions: Continue your Zofran as needed. [id number] medications like Tylenol or ibuprofen as needed for pain. Follow-up with a primary care provider in 7 to 10 days if symptoms worsen. Return with new or worsening symptoms. Print Language: Danish Disposition Disposition: Home, Self Care
== END 2025-02-26 16:45 | disposition home or self-care (01) ==
LOC: ED 16:48
PROVIDERS: Emergency Provider Emergency Medicine; Visit Provider Emergency Medicine
DX: S06.0XAA Concussion with loss of consciousness status unknown, initial encounter (principal); F32.A Depression, unspecified; F41.9 Anxiety disorder, unspecified; K21.9 Gastro-esophageal reflux disease without esophagitis; F17.290 Nicotine dependence, other tobacco product, uncomplicated; W01.10XA Fall on same level from slipping, tripping and stumbling with subsequent striking against unspecified object, initial encounter
CPT/HCPCS: 99282